=== PATIENT | male | born 1955 | race Caucasian/White ===

== ENCOUNTER 2019-12-05 08:59 | Outpatient (REF) | payer MEDICARE, MEDICAID, SELFPAY ==
[2019-12-05 12:15] LABS: MANUAL DIFF FLAG NO
[2019-12-05 12:22] LABS: Basophils Absolute Auto 0.1 X10*3/uL (0.0-0.2); Basophils Percent Auto 0.6 % (0-2); Eosinophils Absolute Auto 0.2 X10*3/uL (0.0-0.4); Eosinophils Percent Auto 2.7 % (0-4); Hematocrit 44.9 % (42-52); Hemoglobin 14.9 g/dl (14.0-18.0); Imm Gran Abs Auto 0.08 X10*3/uL (0.00-0.03); Imm Gran Pct Auto 0.9 % (0.0-0.4); Lymphocytes Absolute Auto 1.6 X10*3/uL (1.2-4.9); Mean Corpuscular HGB Conc 33.2 g/dl (31.0-36.0); Mean Corpuscular Hemoglobin 34.7 pg (27.0-33.0); Mean Corpuscular Volume 104.7 fL (80-98); Mean Platelet Volume 10.2 fL (9.4-12.4); Monocytes Absolute Auto 0.7 X10*3/uL (0.1-1.2); Monocytes Percent Auto 7.6 % (2-11); Neutrophils Absolute Auto 6.2 X10*3/uL (2.0-8.3); Neutrophils Percent Auto 70.2 % (45-73); Platelet Count 257 X10*3/uL (160-400); Red Blood Count 4.29 X10*6/uL (4.60-5.80); Red Cell Distribution Width 14.8 % (11.0-16.0); White Blood Count 8.8 X10*3/uL (4.8-10.8)
[2019-12-05 12:41] LABS: Alanine Aminotransferase 33 U/L (0-40); Albumin Level 4.8 g/dL (3.5-5.0); Alkaline Phosphatase 61 U/L (39-117); Anion Gap 12 (12-20); Aspartate Amino Transferase 20 U/L (5-37); Bilirubin Total 0.5 mg/dL (0.0-1.0); Blood Urea Nitrogen 11 mg/dL (9-16); C Reactive Protein 2.04 mg/dL (< or = 0.50); Calcium 9.3 mg/dL (8.4-10.2); Carbon Dioxide 34 mmol/L (22-29); Chloride 102 mmol/L (96-108); Estimated Glomerular Filt Rate > 60; Glucose Random 90 mg/dL (60-115); Potassium 4.2 mmol/l (3.3-5.1); Sodium 144 mmol/L (135-145); Total Protein 7.1 g/dL (6.5-8.0)
[2019-12-05 12:42] LABS: Alanine Aminotransferase 33 U/L (0-40); Albumin Level 4.8 g/dL (3.5-5.0); Alkaline Phosphatase 61 U/L (39-117); Anion Gap 11 (12-20); Aspartate Amino Transferase 19 U/L (5-37); Bilirubin Total 0.5 mg/dL (0.0-1.0); Blood Urea Nitrogen 11 mg/dL (9-16); Calcium 9.5 mg/dL (8.4-10.2); Carbon Dioxide 34 mmol/L (22-29); Chloride 102 mmol/L (96-108); Estimated Glomerular Filt Rate > 60; Magnesium 2.1 mg/dL (1.6-2.6); Phosphorus 2.9 mg/dL (2.7-4.5); Potassium 4.2 mmol/l (3.3-5.1); Sodium 143 mmol/L (135-145); Uric Acid 7.3 mg/dL (3.4-7.0)
[2019-12-05 13:25] LABS: Erythrocyte Sedimentation Rate 12 MM/HR (0-15)
[2019-12-05 13:51] LABS: Renal w Reflex Lab Use Only Order verified
== END 2019-12-05 09:00 | disposition home or self-care (01) ==
LOC: CF 08:59
PROVIDERS: Internal Medicine Nephrology; Student in an Organized Health Care Education/Training Program; PCP Internal Medicine; Referring Provider Internal Medicine; Visit Provider Internal Medicine Pulmonary Disease
DX: J44.9 Chronic obstructive pulmonary disease, unspecified (principal); G47.33 Obstructive sleep apnea (adult) (pediatric); R06.00 Dyspnea, unspecified; Z99.89 Dependence on other enabling machines and devices; I10 Essential (primary) hypertension; R60.9 Edema, unspecified; E55.9 Vitamin D deficiency, unspecified; M06.00 Rheumatoid arthritis without rheumatoid factor, unspecified site; Z79.899 Other long term (current) drug therapy
CPT/HCPCS: 36415; 80051; 80053; 82040; 82247; 82310; 82565; 83735; 84075; 84100; 84450; 84460; 84520; 84550; 85025; 85652; 86140; 99214

== ENCOUNTER → 2019-12-12 08:45 | Outpatient (BNVA) | payer MEDICARE, MEDICAID, SELFPAY | PROVIDERS: PCP Internal Medicine; Visit Provider Internal Medicine | DX: I48.19 Other persistent atrial fibrillation (principal); Z51.81 Encounter for therapeutic drug level monitoring; Z79.01 Long term (current) use of anticoagulants | CPT/HCPCS: 85610; 99211 ==

== ENCOUNTER 2019-12-20 07:50 | Outpatient (REF) | payer MEDICARE, MEDICAID, SELFPAY ==
[2019-12-20 10:26] LABS: MANUAL DIFF FLAG NO
[2019-12-20 10:33] LABS: Basophils Percent Auto 0.4 % (0-2); Eosinophils Absolute Auto 0.1 X10*3/uL (0.0-0.4); Eosinophils Percent Auto 1.7 % (0-4); Hematocrit 44.1 % (42-52); Hemoglobin 14.3 g/dl (14.0-18.0); Imm Gran Abs Auto 0.06 X10*3/uL (0.00-0.03); Imm Gran Pct Auto 0.7 % (0.0-0.4); Lymphocytes Absolute Auto 1.1 X10*3/uL (1.2-4.9); Lymphocytes Percent Auto 13.5 % (20-40); Mean Corpuscular HGB Conc 32.4 g/dl (31.0-36.0); Mean Corpuscular Hemoglobin 33.5 pg (27.0-33.0); Mean Corpuscular Volume 103.3 fL (80-98); Mean Platelet Volume 9.8 fL (9.4-12.4); Monocytes Absolute Auto 0.7 X10*3/uL (0.1-1.2); Monocytes Percent Auto 8.3 % (2-11); Neutrophils Absolute Auto 6.3 X10*3/uL (2.0-8.3); Neutrophils Percent Auto 75.4 % (45-73); Platelet Count 259 X10*3/uL (160-400); Red Blood Count 4.27 X10*6/uL (4.60-5.80); Red Cell Distribution Width 14.5 % (11.0-16.0); White Blood Count 8.4 X10*3/uL (4.8-10.8)
[2019-12-20 11:16] LABS: Alanine Aminotransferase 23 U/L (0-40); Albumin Level 4.6 g/dL (3.5-5.0); Alkaline Phosphatase 59 U/L (39-117); Anion Gap 14 (12-20); Aspartate Amino Transferase 15 U/L (5-37); Bilirubin Total 0.5 mg/dL (0.0-1.0); Blood Urea Nitrogen 13 mg/dL (9-16); Calcium 9.4 mg/dL (8.4-10.2); Carbon Dioxide 29 mmol/L (22-29); Chloride 104 mmol/L (96-108); Estimated Glomerular Filt Rate > 60; Glucose Random 104 mg/dL (60-115); Potassium 4.2 mmol/l (3.3-5.1); Sodium 143 mmol/L (135-145); Total Protein 6.9 g/dL (6.5-8.0)
[2019-12-20 11:29] LABS: HBS Num1 0.38 mIU/mL (0-7.99); HBc Num1 0.04 S/CO (0.00-0.79); HBsAGNum1 0.23 S/CO (0.00-0.99); Hepatitis A Antibody IgM 0.19 Index (0-0.79); Hepatitis B Core Antibody Nonreactive (Nonreactive); Hepatitis B Surface Antigen Negative (Negative); ~HepC Num1 0.13 S/CO (0.00-0.79); ~Hepatitis A Antibody IgM Nonreactive (Nonreactive); ~Hepatitis B Surface Antibody NONREACTIVE (Nonreactive); ~Hepatitis C Antibody Nonreactive (Nonreactive)
== END 2019-12-20 07:51 | disposition home or self-care (01) ==
LOC: HO.LAB 07:50
PROVIDERS: PCP Internal Medicine; Referring Provider Internal Medicine; Visit Provider Student in an Organized Health Care Education/Training Program
DX: M06.00 Rheumatoid arthritis without rheumatoid factor, unspecified site (principal); M17.0 Bilateral primary osteoarthritis of knee; Z79.899 Other long term (current) drug therapy
CPT/HCPCS: 36415; 80053; 85025; 86140; 86481; 86704; 86706; 86709; 86803; 87340; 99214

== ENCOUNTER → 2019-12-26 08:27 | Outpatient (BNVA) | payer MEDICARE, MEDICAID, SELFPAY | PROVIDERS: PCP Internal Medicine; Referring Provider Internal Medicine; Visit Provider Internal Medicine | DX: I48.19 Other persistent atrial fibrillation (principal); Z51.81 Encounter for therapeutic drug level monitoring; Z79.01 Long term (current) use of anticoagulants | CPT/HCPCS: 85610; 99211 ==

== ENCOUNTER → 2020-01-09 08:37 | Outpatient (BNVA) | payer MEDICARE, MEDICAID, SELFPAY | PROVIDERS: PCP Internal Medicine; Visit Provider Internal Medicine | DX: I48.19 Other persistent atrial fibrillation (principal); Z51.81 Encounter for therapeutic drug level monitoring; Z79.01 Long term (current) use of anticoagulants | CPT/HCPCS: 85610; 99211 ==

== ENCOUNTER → 2020-01-10 07:55 | Outpatient (BNVA) | payer MEDICARE, MEDICAID, SELFPAY | PROVIDERS: PCP Internal Medicine; Referring Provider Internal Medicine; Visit Provider Student in an Organized Health Care Education/Training Program | DX: I48.19 Other persistent atrial fibrillation (principal); Z51.81 Encounter for therapeutic drug level monitoring; Z79.01 Long term (current) use of anticoagulants | CPT/HCPCS: 99211 ==

== ENCOUNTER → 2020-01-16 08:52 | Outpatient (BNVA) | payer MEDICARE, MEDICAID, SELFPAY | PROVIDERS: PCP Internal Medicine; Referring Provider Internal Medicine; Visit Provider Internal Medicine Pulmonary Disease | DX: J44.9 Chronic obstructive pulmonary disease, unspecified (principal); G47.33 Obstructive sleep apnea (adult) (pediatric); Z79.899 Other long term (current) drug therapy; Z99.89 Dependence on other enabling machines and devices | CPT/HCPCS: 99212 ==

== ENCOUNTER → 2020-01-30 08:18 | Outpatient (BNVA) | payer MEDICARE, MEDICAID, SELFPAY | PROVIDERS: Visit Provider Internal Medicine | DX: I48.19 Other persistent atrial fibrillation (principal); Z51.81 Encounter for therapeutic drug level monitoring; Z79.01 Long term (current) use of anticoagulants | CPT/HCPCS: 85610; 99211 ==

== ENCOUNTER → 2020-02-27 08:04 | Outpatient (BNVA) | payer MEDICARE, MEDICAID, SELFPAY | PROVIDERS: PCP Internal Medicine; Referring Provider Internal Medicine; Visit Provider Internal Medicine | DX: I48.19 Other persistent atrial fibrillation (principal); Z51.81 Encounter for therapeutic drug level monitoring; Z79.01 Long term (current) use of anticoagulants | CPT/HCPCS: 85610; 99211 ==

== ENCOUNTER 2020-03-19 08:09 | Outpatient (REF) | payer MEDICARE, MEDICAID, SELFPAY ==
[2020-03-19 09:33] LABS: MANUAL DIFF FLAG NO
[2020-03-19 09:38] LABS: Basophils Absolute Auto 0.1 X10*3/uL (0.0-0.2); Basophils Percent Auto 0.7 % (0-2); Eosinophils Absolute Auto 0.2 X10*3/uL (0.0-0.4); Eosinophils Percent Auto 2.9 % (0-4); Hematocrit 41.2 % (42-52); Hemoglobin 13.8 g/dl (14.0-18.0); Imm Gran Abs Auto 0.05 X10*3/uL (0.00-0.03); Imm Gran Pct Auto 0.7 % (0.0-0.4); Lymphocytes Absolute Auto 1.7 X10*3/uL (1.2-4.9); Lymphocytes Percent Auto 22.5 % (20-40); Mean Corpuscular HGB Conc 33.5 g/dl (31.0-36.0); Mean Corpuscular Hemoglobin 34.2 pg (27.0-33.0); Mean Corpuscular Volume 102.2 fL (80-98); Mean Platelet Volume 9.8 fL (9.4-12.4); Monocytes Absolute Auto 0.5 X10*3/uL (0.1-1.2); Monocytes Percent Auto 6.4 % (2-11); Neutrophils Absolute Auto 5.1 X10*3/uL (2.0-8.3); Neutrophils Percent Auto 66.8 % (45-73); Platelet Count 219 X10*3/uL (160-400); Red Blood Count 4.03 X10*6/uL (4.60-5.80); Red Cell Distribution Width 14.5 % (11.0-16.0); White Blood Count 7.6 X10*3/uL (4.8-10.8)
[2020-03-19 09:58] LABS: C Reactive Protein 0.64 mg/dL (< or = 0.50)
[2020-03-19 10:36] LABS: Erythrocyte Sedimentation Rate 5 MM/HR (0-15)
== END 2020-03-19 08:10 | disposition home or self-care (01) ==
LOC: HO.LAB 08:09
PROVIDERS: Absent Provider Student in an Organized Health Care Education/Training Program; PCP Internal Medicine; Visit Provider Internal Medicine
DX: M06.00 Rheumatoid arthritis without rheumatoid factor, unspecified site (principal); Z79.899 Other long term (current) drug therapy
CPT/HCPCS: 36415; 85025; 85610; 85652; 86140; 99211

== ENCOUNTER → 2020-03-21 09:15 | Outpatient (BNVA) | payer MEDICARE, MEDICAID, SELFPAY | PROVIDERS: PCP Internal Medicine; Visit Provider Student in an Organized Health Care Education/Training Program | DX: M06.00 Rheumatoid arthritis without rheumatoid factor, unspecified site (principal); M17.0 Bilateral primary osteoarthritis of knee; Z87.891 Personal history of nicotine dependence; Z79.899 Other long term (current) drug therapy | CPT/HCPCS: 99212 ==

== ENCOUNTER → 2020-04-09 08:02 | Outpatient (BNVA) | payer MEDICARE, MEDICAID, SELFPAY | PROVIDERS: PCP Internal Medicine; Visit Provider Internal Medicine | DX: I48.19 Other persistent atrial fibrillation (principal); Z51.81 Encounter for therapeutic drug level monitoring; Z79.01 Long term (current) use of anticoagulants | CPT/HCPCS: 85610; 99211 ==

== ENCOUNTER 2020-05-07 07:58 | Outpatient (REF) | payer MEDICARE, MEDICAID, SELFPAY ==
[2020-05-07 08:51] LABS: MANUAL DIFF FLAG NO
[2020-05-07 08:55] LABS: Basophils Percent Auto 0.3 % (0-2); Eosinophils Absolute Auto 0.2 X10*3/uL (0.0-0.4); Eosinophils Percent Auto 2.2 % (0-4); Hematocrit 41.4 % (42-52); Hemoglobin 13.8 g/dl (14.0-18.0); Imm Gran Abs Auto 0.05 X10*3/uL (0.00-0.03); Imm Gran Pct Auto 0.6 % (0.0-0.4); Lymphocytes Absolute Auto 1.5 X10*3/uL (1.2-4.9); Lymphocytes Percent Auto 16.7 % (20-40); Mean Corpuscular HGB Conc 33.3 g/dl (31.0-36.0); Mean Corpuscular Hemoglobin 34.5 pg (27.0-33.0); Mean Corpuscular Volume 103.5 fL (80-98); Mean Platelet Volume 9.5 fL (9.4-12.4); Monocytes Absolute Auto 0.6 X10*3/uL (0.1-1.2); Monocytes Percent Auto 6.7 % (2-11); Neutrophils Absolute Auto 6.5 X10*3/uL (2.0-8.3); Neutrophils Percent Auto 73.5 % (45-73); Platelet Count 251 X10*3/uL (160-400); Red Cell Distribution Width 14.3 % (11.0-16.0); White Blood Count 8.8 X10*3/uL (4.8-10.8)
[2020-05-07 09:07] LABS: Estimated Average Glucose 117 mg/dL; Hemoglobin A1c % 5.7 %
[2020-05-07 09:30] LABS: Alanine Aminotransferase 21 U/L (0-40); Albumin Level 4.4 g/dL (3.5-5.0); Alkaline Phosphatase 51 U/L (39-117); Anion Gap 12 (12-20); Aspartate Amino Transferase 17 U/L (5-37); Bilirubin Total 0.3 mg/dL (0.0-1.0); Blood Urea Nitrogen 20 mg/dL (9-16); Calcium 9.4 mg/dL (8.4-10.2); Carbon Dioxide 30 mmol/L (22-29); Chloride 105 mmol/L (96-108); Cholesterol 182 mg/dL; Estimated Glomerular Filt Rate > 60; Glucose Random 119 mg/dL (60-115); HDL Cholesterol 27 mg/dL; LDL Cholesterol Calculated 98 mg/dl; Potassium 4.7 mmol/L (3.3-5.1); Sodium 142 mmol/L (135-145); Total Protein 6.6 g/dL (6.5-8.0); Triglycerides 287 mg/dL
[2020-05-07 09:51] LABS: Free T4 (Free Thyroxine) 0.96 ng/dL (0.71-1.85); Thyroid Stimulating Hormone 1.13 uIU/mL (0.32-4.0)
[2020-05-07 09:54] LABS: Erythrocyte Sedimentation Rate 7 MM/HR (0-15)
[2020-05-07 10:22] LABS: Folate > 20.0 ng/mL (> or = 4.0); Vitamin B12 201 pg/mL (200-900)
== END 2020-05-07 07:59 | disposition home or self-care (01) ==
LOC: HO.LAB 07:58
PROVIDERS: Absent Provider Student in an Organized Health Care Education/Training Program; PCP Internal Medicine; Referring Provider Internal Medicine; Visit Provider Internal Medicine
DX: I10 Essential (primary) hypertension (principal); E78.00 Pure hypercholesterolemia, unspecified; M06.00 Rheumatoid arthritis without rheumatoid factor, unspecified site; R73.02 Impaired glucose tolerance (oral); I48.19 Other persistent atrial fibrillation; Z51.81 Encounter for therapeutic drug level monitoring; Z79.01 Long term (current) use of anticoagulants
CPT/HCPCS: 36415; 80053; 80061; 82607; 82746; 83036; 84439; 84443; 85025; 85610; 85652; 99211

== ENCOUNTER → 2020-05-16 08:48 | Outpatient (BNVA) | payer MEDICARE, MEDICAID, SELFPAY | PROVIDERS: PCP Internal Medicine; Visit Provider Internal Medicine Pulmonary Disease | DX: J44.9 Chronic obstructive pulmonary disease, unspecified (principal); G47.33 Obstructive sleep apnea (adult) (pediatric); Z99.89 Dependence on other enabling machines and devices; Z87.891 Personal history of nicotine dependence | CPT/HCPCS: 99212 ==

== ENCOUNTER 2020-05-17 07:23 | Outpatient (REF) | payer MEDICARE, MEDICAID, SELFPAY ==
[2020-05-17 09:10] LABS: MANUAL DIFF FLAG NO
[2020-05-17 09:14] LABS: Basophils Percent Auto 0.5 % (0-2); Eosinophils Absolute Auto 0.1 X10*3/uL (0.0-0.4); Eosinophils Percent Auto 2.1 % (0-4); Hemoglobin 14.3 g/dl (14.0-18.0); Imm Gran Abs Auto 0.03 X10*3/uL (0.00-0.03); Imm Gran Pct Auto 0.5 % (0.0-0.4); Lymphocytes Absolute Auto 1.3 X10*3/uL (1.2-4.9); Lymphocytes Percent Auto 19.5 % (20-40); Mean Corpuscular HGB Conc 33.3 g/dl (31.0-36.0); Mean Corpuscular Hemoglobin 34.6 pg (27.0-33.0); Mean Corpuscular Volume 104.1 fL (80-98); Mean Platelet Volume 9.7 fL (9.4-12.4); Monocytes Absolute Auto 0.6 X10*3/uL (0.1-1.2); Monocytes Percent Auto 8.5 % (2-11); Neutrophils Absolute Auto 4.5 X10*3/uL (2.0-8.3); Neutrophils Percent Auto 68.9 % (45-73); Platelet Count 245 X10*3/uL (160-400); Red Blood Count 4.13 X10*6/uL (4.60-5.80); Red Cell Distribution Width 14.6 % (11.0-16.0); White Blood Count 6.6 X10*3/uL (4.8-10.8)
[2020-05-17 10:09] LABS: Erythrocyte Sedimentation Rate 6 MM/HR (0-15)
[2020-05-17 11:40] LABS: Alanine Aminotransferase 21 U/L (0-40); Albumin Level 4.7 g/dL (3.5-5.0); Alkaline Phosphatase 51 U/L (39-117); Anion Gap 13 (12-20); Aspartate Amino Transferase 17 U/L (5-37); Bilirubin Total 0.8 mg/dL (0.0-1.0); Blood Urea Nitrogen 16 mg/dL (9-16); C Reactive Protein 0.87 mg/dL (< or = 0.50); Calcium 9.3 mg/dL (8.4-10.2); Carbon Dioxide 28 mmol/L (22-29); Chloride 105 mmol/L (96-108); Estimated Glomerular Filt Rate > 60; Glucose Random 117 mg/dL (60-115); Potassium 4.3 mmol/L (3.3-5.1); Sodium 142 mmol/L (135-145); Total Protein 6.9 g/dL (6.5-8.0)
[2020-05-21 15:37] LABS: Vitamin D 25-OH, D2 <4 ng/mL; Vitamin D 25-OH, D3 33 ng/mL; Vitamin D 25-OH, Total 33 ng/mL (30-100)
== END 2020-05-17 07:24 | disposition home or self-care (01) ==
LOC: HO.LAB 07:23
PROVIDERS: PCP Internal Medicine; Visit Provider Student in an Organized Health Care Education/Training Program
DX: M06.00 Rheumatoid arthritis without rheumatoid factor, unspecified site (principal); G62.9 Polyneuropathy, unspecified; Z79.899 Other long term (current) drug therapy
CPT/HCPCS: 36415; 80053; 82306; 85025; 85652; 86140; 99212

== ENCOUNTER → 2020-06-04 07:57 | Outpatient (BNVA) | payer MEDICARE, MEDICAID, SELFPAY | PROVIDERS: PCP Internal Medicine; Visit Provider Internal Medicine | DX: M17.0 Bilateral primary osteoarthritis of knee (principal); M72.2 Plantar fascial fibromatosis; I48.91 Unspecified atrial fibrillation; I73.9 Peripheral vascular disease, unspecified; E78.00 Pure hypercholesterolemia, unspecified; I10 Essential (primary) hypertension; E55.9 Vitamin D deficiency, unspecified; F17.200 Nicotine dependence, unspecified, uncomplicated; Z88.0 Allergy status to penicillin; Z79.01 Long term (current) use of anticoagulants; Z51.81 Encounter for therapeutic drug level monitoring | CPT/HCPCS: 20610; 85610; 99211; 99212; J1040 ==

== ENCOUNTER → 2020-06-11 07:59 | Outpatient (BNVA) | payer MEDICARE, MEDICAID, SELFPAY | PROVIDERS: PCP Internal Medicine; Visit Provider Internal Medicine | DX: I48.19 Other persistent atrial fibrillation (principal); Z79.01 Long term (current) use of anticoagulants; Z51.81 Encounter for therapeutic drug level monitoring | CPT/HCPCS: 85610; 99211 ==

== ENCOUNTER → 2020-06-25 08:00 | Outpatient (BNVA) | payer MEDICARE, MEDICAID, SELFPAY | PROVIDERS: PCP Internal Medicine; Visit Provider Internal Medicine | DX: I48.19 Other persistent atrial fibrillation (principal); Z51.81 Encounter for therapeutic drug level monitoring; Z79.01 Long term (current) use of anticoagulants | CPT/HCPCS: 85610; 99211 ==

== ENCOUNTER → 2020-07-09 08:01 | Outpatient (BNVA) | payer MEDICARE, MEDICAID, SELFPAY | PROVIDERS: PCP Internal Medicine; Visit Provider Internal Medicine | DX: I48.19 Other persistent atrial fibrillation (principal); Z51.81 Encounter for therapeutic drug level monitoring; Z79.01 Long term (current) use of anticoagulants | CPT/HCPCS: 85610; 99211 ==

== ENCOUNTER → 2020-08-06 07:59 | Outpatient (BNVA) | payer MEDICARE, MEDICAID, SELFPAY | PROVIDERS: PCP Internal Medicine; Visit Provider Internal Medicine | DX: I48.19 Other persistent atrial fibrillation (principal); Z51.81 Encounter for therapeutic drug level monitoring; Z79.01 Long term (current) use of anticoagulants | CPT/HCPCS: 85610; 99211 ==

== ENCOUNTER 2020-08-16 12:36 | Outpatient (REF) | payer MEDICARE, MEDICAID, SELFPAY ==
[2020-08-16 14:48] LABS: MANUAL DIFF FLAG NO
[2020-08-16 14:57] LABS: Basophils Percent Auto 0.3 % (0-2); Eosinophils Absolute Auto 0.1 X10*3/uL (0.0-0.4); Eosinophils Percent Auto 1.5 % (0-4); Hematocrit 43.3 % (42-52); Hemoglobin 14.7 g/dl (14.0-18.0); Imm Gran Abs Auto 0.04 X10*3/uL (0.00-0.03); Imm Gran Pct Auto 0.4 % (0.0-0.4); Lymphocytes Absolute Auto 1.7 X10*3/uL (1.2-4.9); Lymphocytes Percent Auto 18.3 % (20-40); Mean Corpuscular HGB Conc 33.9 g/dl (31.0-36.0); Mean Corpuscular Hemoglobin 35.2 pg (27.0-33.0); Mean Corpuscular Volume 103.6 fL (80-98); Mean Platelet Volume 9.5 fL (9.4-12.4); Monocytes Absolute Auto 0.7 X10*3/uL (0.1-1.2); Monocytes Percent Auto 7.7 % (2-11); Neutrophils Absolute Auto 6.7 X10*3/uL (2.0-8.3); Neutrophils Percent Auto 71.8 % (45-73); Platelet Count 275 X10*3/uL (160-400); Red Blood Count 4.18 X10*6/uL (4.60-5.80); Red Cell Distribution Width 15.4 % (11.0-16.0); White Blood Count 9.3 X10*3/uL (4.8-10.8)
[2020-08-16 15:25] LABS: Alanine Aminotransferase 25 U/L (0-40); Albumin Level 4.8 g/dL (3.5-5.0); Alkaline Phosphatase 52 U/L (39-117); Anion Gap 15 (12-20); Aspartate Amino Transferase 25 U/L (5-37); Bilirubin Total 0.8 mg/dL (0.0-1.0); Blood Urea Nitrogen 16 mg/dL (9-16); C Reactive Protein 0.78 mg/dL (< or = 0.50); Calcium 9.5 mg/dL (8.4-10.2); Carbon Dioxide 28 mmol/L (22-29); Chloride 103 mmol/L (96-108); Estimated Glomerular Filt Rate > 60; Glucose Random 103 mg/dL (60-115); Potassium 4.2 mmol/L (3.3-5.1); Sodium 142 mmol/L (135-145); Total Protein 7.1 g/dL (6.5-8.0)
[2020-08-16 15:36] LABS: Erythrocyte Sedimentation Rate 5 MM/HR (0-15)
== END 2020-08-16 12:37 | disposition home or self-care (01) ==
LOC: HO.LAB 12:36
PROVIDERS: PCP Internal Medicine; Visit Provider Student in an Organized Health Care Education/Training Program
DX: M06.00 Rheumatoid arthritis without rheumatoid factor, unspecified site (principal)
CPT/HCPCS: 36415; 80053; 85025; 85652; 86140; 99212

== ENCOUNTER → 2020-08-20 08:10 | Outpatient (BNVA) | payer MEDICARE, MEDICAID, SELFPAY | PROVIDERS: PCP Internal Medicine; Visit Provider Internal Medicine | DX: I48.19 Other persistent atrial fibrillation (principal); Z51.81 Encounter for therapeutic drug level monitoring; Z79.01 Long term (current) use of anticoagulants | CPT/HCPCS: 85610; 99211 ==

== ENCOUNTER → 2020-09-09 08:29 | Outpatient (REF) | payer MEDICARE, MEDICAID, SELFPAY ==
--- NOTE | 2020-09-09 08:32 | CA_ITS ---
Transthoracic Echocardiogram Patient (Last, First, Middle): Konrad Ferrera S Gender: Male Date of : 1955 Age: 65 Procedure Date: 09/09/2020 Procedure Type: Transthoracic Echocardiogram Location: OP Height: 190.5 cm Weight: 124.29 kg BSA: 2.51 m2 Heart Rate: bpm BP: 120 / 58 mmHg Dinker: Referring MD: Perez Navas MD Symptoms: I48.1 PERSITENT AFIB, R60.0 EDEMA Study Quality: Fair ECG Rhythm: Atrial Fibrillation Conclusions: - The left ventricular systolic function is normal. The visually estimated ejection fraction is between 65-70%. - There is mild calcification of the aortic valve. - There is mild mitral annular calcification. Findings Procedure Information Contrast agent, definity, is being given per protocol without apparent complications. Left Ventricle Normal left ventricular cavity size. There is mildly increased left ventricular wall thickness. The left ventricular systolic function is normal. The visually estimated ejection fraction is between 65-70%. There is no evidence of regional wall motion abnormalities. Diastolic function is indeterminate on the basis of available data. Right Ventricle Normal right ventricular cavity size. There is low normal right ventricular systolic function. Atria Both atria are normal in size. Aortic Valve There is a normal trileaflet aortic valve. There is mild calcification of the aortic valve. There is no aortic valve stenosis. There is no aortic valve regurgitation. Mitral Valve There is mild mitral annular calcification. There is trace mitral valve regurgitation. There is no mitral valve stenosis. Pulmonic Valve The pulmonic valve was not well visualized. Tricuspid Valve Normal tricuspid valve structure. There is trace tricuspid valve regurgitation. The pulmonary artery systolic pressure is normal. Great Vessels The aortic annulus, sinuses of valsalva, asc aorta, and aortic arch are normal in size. Venous The inferior vena cava is mildly dilated and collapses greater than 50% with inspiration. Pericardium/Pleural There is no evidence of pericardial effusion. Prior Study Comparison No significant change compared to prior study dated: 03/29/2019. Measurements 2D Linear Measurements RVIDd: 3.51 RVIDd Index: 1.40 IVSd: 0.98 0.6-0.9/0.6-1.0 cm LVIDd: 5.31 3.9-5.3/4.2-5.9 cm LVIDd Index: 2.12 2.4-3.2/2.2-3.1 cm/m2 LVIDs: 3.43 2.0-3.6 cm LVPWd: 1.13 0.7-1.1 cm Ao Root: 3.60 2.1-3.5 cm LA Diam: 4.50 2.7-3.8/3.0-4.0 cm LAIDs Index: 1.79 1.5-2.3 cm/m2 LV Mass: 268.29 67-162/88-224 g LV Mass Index: 106.89 43-95/49-115 g/m2 LVOT Diam: 2.20 3.0+(-)1.3 cm 2D Systolic Function EF 4C: 53.40 >55% EF 2C: 51.10 >55% Aortic Valve AoV Pk Jorge: 1.36 AoV Mn Jorge: 1.04 AoV VTI: 0.31 AoV Pk Grad: 7.00 Aov Mn Grad: 5.00 JARAD Cont.VTI: 2.80 LVOT LVOT Pk Jorge: 1.02 LVOT Mn Jorge: 0.70 LVOT VTI: 0.23 LVOT Pk Grad: 4.00 LVOT Mn Grad: 2.00 LVOT Diam: 2.20 LVOT Area: 3.80 Tricuspid Valve RA Press: 8.00 Great Vessels Aorta Ao Root-2D: 3.60 2.0-3.7 cm Ao Asc: 3.30 2.1-3.4 cm Ao Arch: 3.10 Updated in Other Vendor System with Status of Final Perez Navas MD electronically signed on 09/10/2020 10:19:16 AM with status of Final
== END ==
LOC: HO.CARD 08:29
PROVIDERS: Visit Provider Internal Medicine
DX: I48.19 Other persistent atrial fibrillation (principal); R60.0 Localized edema
CPT/HCPCS: 93306; Q9957

== ENCOUNTER → 2020-09-17 09:05 | Outpatient (BNVA) | payer MEDICARE, MEDICAID, SELFPAY | PROVIDERS: PCP Internal Medicine; Visit Provider Internal Medicine | DX: I48.91 Unspecified atrial fibrillation (principal); J44.9 Chronic obstructive pulmonary disease, unspecified; I50.9 Heart failure, unspecified; G47.33 Obstructive sleep apnea (adult) (pediatric); Z51.81 Encounter for therapeutic drug level monitoring; Z79.01 Long term (current) use of anticoagulants; Z87.891 Personal history of nicotine dependence | CPT/HCPCS: 85610; 99211; 99212 ==

== ENCOUNTER → 2020-09-24 12:39 | Outpatient (BNVA) | payer MEDICARE, MEDICAID, SELFPAY | PROVIDERS: PCP Internal Medicine; Referring Provider Internal Medicine; Visit Provider Internal Medicine | DX: I48.19 Other persistent atrial fibrillation (principal); I27.81 Cor pulmonale (chronic); G47.33 Obstructive sleep apnea (adult) (pediatric); Z79.01 Long term (current) use of anticoagulants; Z79.899 Other long term (current) drug therapy | CPT/HCPCS: 93005; 99212 ==

== ENCOUNTER → 2020-10-09 07:59 | Outpatient (BNVA) | payer MEDICARE, MEDICAID, SELFPAY | PROVIDERS: PCP Internal Medicine; Visit Provider Internal Medicine | DX: I48.11 Longstanding persistent atrial fibrillation (principal); Z51.81 Encounter for therapeutic drug level monitoring; Z79.01 Long term (current) use of anticoagulants | CPT/HCPCS: G0248 ==

== ENCOUNTER → 2020-10-16 11:51 | Outpatient (BNVA) | payer MEDICARE, MEDICAID, SELFPAY | PROVIDERS: PCP Internal Medicine; Visit Provider Internal Medicine ==

== ENCOUNTER 2020-10-16 16:00 | Outpatient (RCR) | payer MEDICARE, MEDICAID, SELFPAY ==
--- NOTE | 2020-09-20 13:35 | MHC.PT.EP ---
[facility] [place] Office [place] Office [place] Office [address] Mitesh Johns [address] [phone] F: [phone] F: [phone] F: [phone] F: [phone] Physical Therapy Plan of Care Date of Evaluation: Date of Surgery: N/A Diagnosis: low back pain, bilateral lower extremity pain Assessment: pt's signs and symptoms consistent w/ lumbar radiculopathy. His B calf burning w/ gait is consistent w/ PAD as it is worse w/ increased energy expenditure, for example going up hill, and improves w/ rest. He is significantly limited by his COPD to participate in exercise at this time. pt presents to physical therapy with pain, decreased range of motion, decreased strength, impaired functional mobility, impaired postural awareness, and gait deviations. pt is a good candidate for skilled PT due to age, potential remediation of impairments, typical disease/condition progression and prognosis, comorbidities, and motivation. pt would benefit from tailored strengthening and stretching exercise program, functional training, gait training, postural re-training, neuromuscular re-education, modalities as needed for pain, equipment safety demonstration. Frequency and Duration: The patient will be seen 2x/wk for 4 wks Short Term Goals: pt will be I w/ HEP to promote self-management of radicular symptoms. pt will improve lumbar flexion by 25% to promote ease in donning compression stockings. Jail Goals: pt will report a statistically significant improvement in self-reported outcome measure, Edith, to promote return to PLOF. pt will report <2/10 L low back and radicular pain w/ >2500' gait on even ground to promote pain-free return to community ambulation w/ LRAD. Treatment Plan: Modalities to reduce pain, spasms and effusion. Manual therapy to restore motion and function. Therapeutic exercise to improve strength and flexibility. Neuromuscular re-education for posture and balance. Therapeutic activities to return to functional activities of daily living. Electronically signed by: Anastasia Laguna PT, DPT Please sign and return to therapist. Thank you for your referral.
--- NOTE | 2020-10-16 16:47 | MHC.PT.EP ---
[facility] [place] Office [place] Office [place] Office [address] Mitesh Johns [address] [phone] F: [phone] F: [phone] F: [phone] F: [phone] Physical Therapy Plan of Care Date of Evaluation: Date of Surgery: N/A Diagnosis: low back pain, bilateral lower extremity pain Assessment: pt's signs and symptoms consistent w/ lumbar radiculopathy. His B calf burning w/ gait is consistent w/ PAD as it is worse w/ increased energy expenditure, for example going up hill, and improves w/ rest. He is significantly limited by his COPD to participate in exercise at this time. pt presents to physical therapy with pain, decreased range of motion, decreased strength, impaired functional mobility, impaired postural awareness, and gait deviations. pt is a good candidate for skilled PT due to age, potential remediation of impairments, typical disease/condition progression and prognosis, comorbidities, and motivation. pt would benefit from tailored strengthening and stretching exercise program, functional training, gait training, postural re-training, neuromuscular re-education, modalities as needed for pain, equipment safety demonstration. Frequency and Duration: The patient will be seen 2x/wk for 4 wks Short Term Goals: pt will be I w/ HEP to promote self-management of radicular symptoms. pt will improve lumbar flexion by 25% to promote ease in donning compression stockings. [facility] Goals: pt will report a statistically significant improvement in self-reported outcome measure, Edith, to promote return to PLOF. pt will report <2/10 L low back and radicular pain w/ >2500' gait on even ground to promote pain-free return to community ambulation w/ LRAD. Treatment Plan: Modalities to reduce pain, spasms and effusion. Manual therapy to restore motion and function. Therapeutic exercise to improve strength and flexibility. Neuromuscular re-education for posture and balance. Therapeutic activities to return to functional activities of daily living. Electronically signed by: Anastasia Laguna PT, DPT Please sign and return to therapist. Thank you for your referral.
== END 2020-10-16 16:47 | disposition home or self-care (01) ==
LOC: HO.PT 16:00
PROVIDERS: PCP Internal Medicine; Visit Provider Student in an Organized Health Care Education/Training Program
DX: M06.00 Rheumatoid arthritis without rheumatoid factor, unspecified site (principal)
CPT/HCPCS: 97110; 97150; 97162; 97530

== ENCOUNTER → 2020-10-23 10:33 | Outpatient (BNVA) | payer MEDICARE, MEDICAID, SELFPAY | PROVIDERS: PCP Internal Medicine; Visit Provider Internal Medicine ==

== ENCOUNTER → 2020-10-30 11:56 | Outpatient (BNVA) | payer MEDICARE, MEDICAID, SELFPAY | PROVIDERS: PCP Internal Medicine; Visit Provider Internal Medicine ==

== ENCOUNTER → 2020-11-06 12:02 | Outpatient (BNVA) | payer MEDICARE, MEDICAID, SELFPAY | PROVIDERS: PCP Internal Medicine; Visit Provider Internal Medicine ==

== ENCOUNTER → 2020-11-13 11:46 | Outpatient (BNVA) | payer MEDICARE, MEDICAID, SELFPAY | PROVIDERS: PCP Internal Medicine; Visit Provider Internal Medicine | DX: I48.11 Longstanding persistent atrial fibrillation (principal) | CPT/HCPCS: Q3014 ==

== ENCOUNTER 2020-11-20 10:09 | Outpatient (REF) | payer MEDICARE, MEDICAID, SELFPAY ==
[2020-11-20 11:35] LABS: MANUAL DIFF FLAG NO
[2020-11-20 11:43] LABS: Basophils Percent Auto 0.2 % (0-2); Eosinophils Absolute Auto 0.2 X10*3/uL (0.0-0.4); Eosinophils Percent Auto 1.8 % (0-4); Hematocrit 41.3 % (42-52); Imm Gran Abs Auto 0.04 X10*3/uL (0.00-0.03); Imm Gran Pct Auto 0.5 % (0.0-0.4); Lymphocytes Absolute Auto 1.6 X10*3/uL (1.2-4.9); Lymphocytes Percent Auto 19.5 % (20-40); Mean Corpuscular HGB Conc 33.9 g/dl (31.0-36.0); Mean Corpuscular Hemoglobin 35.5 pg (27.0-33.0); Mean Corpuscular Volume 104.8 fL (80-98); Mean Platelet Volume 9.5 fL (9.4-12.4); Monocytes Absolute Auto 0.7 X10*3/uL (0.1-1.2); Neutrophils Absolute Auto 5.7 X10*3/uL (2.0-8.3); Platelet Count 262 X10*3/uL (160-400); Red Blood Count 3.94 X10*6/uL (4.60-5.80); Red Cell Distribution Width 14.4 % (11.0-16.0); White Blood Count 8.2 X10*3/uL (4.8-10.8)
[2020-11-20 12:12] LABS: Alanine Aminotransferase 23 U/L (0-40); Albumin Level 4.7 g/dL (3.5-5.0); Alkaline Phosphatase 54 U/L (39-117); Anion Gap 16 (12-20); Aspartate Amino Transferase 22 U/L (5-37); Bilirubin Total 0.7 mg/dL (0.0-1.0); Blood Urea Nitrogen 16 mg/dL (9-16); C Reactive Protein 1.64 mg/dL (< or = 0.50); Calcium 9.8 mg/dL (8.4-10.2); Carbon Dioxide 27 mmol/L (22-29); Chloride 102 mmol/L (96-108); Estimated Glomerular Filt Rate > 60; Glucose Random 92 mg/dL (60-115); Potassium 3.9 mmol/L (3.3-5.1); Sodium 141 mmol/L (135-145); Total Protein 6.7 g/dL (6.5-8.0)
[2020-11-20 12:32] LABS: Erythrocyte Sedimentation Rate 7 MM/HR (0-15)
[2020-11-20 13:01] LABS: Folate > 20.0 ng/mL (> or = 4.0); Vitamin B12 337 pg/mL (200-900)
== END 2020-11-20 10:10 | disposition home or self-care (01) ==
LOC: HO.LAB 10:09
PROVIDERS: Absent Provider Internal Medicine; PCP Internal Medicine; Visit Provider Nurse Practitioner Family
DX: M06.00 Rheumatoid arthritis without rheumatoid factor, unspecified site (principal); I48.0 Paroxysmal atrial fibrillation; G63 Polyneuropathy in diseases classified elsewhere; Z79.899 Other long term (current) drug therapy; Z87.891 Personal history of nicotine dependence
CPT/HCPCS: 36415; 80053; 82607; 82746; 85025; 85652; 86140; 99212

== ENCOUNTER → 2020-11-28 11:14 | Outpatient (BNVA) | payer MEDICARE, MEDICAID, SELFPAY | PROVIDERS: PCP Internal Medicine; Visit Provider Internal Medicine ==

== ENCOUNTER → 2020-12-04 11:45 | Outpatient (BNVA) | payer MEDICARE, MEDICAID, SELFPAY | PROVIDERS: PCP Internal Medicine; Visit Provider Internal Medicine ==

== ENCOUNTER → 2020-12-18 13:14 | Outpatient (BNVA) | payer MEDICARE, MEDICAID, SELFPAY | PROVIDERS: PCP Internal Medicine; Visit Provider Internal Medicine ==

== ENCOUNTER → 2021-01-01 11:31 | Outpatient (BNVA) | payer MEDICARE, MEDICAID, SELFPAY | PROVIDERS: PCP Internal Medicine; Visit Provider Internal Medicine | DX: I48.11 Longstanding persistent atrial fibrillation (principal); Z51.81 Encounter for therapeutic drug level monitoring; Z79.01 Long term (current) use of anticoagulants | CPT/HCPCS: Q3014 ==

== ENCOUNTER → 2021-01-15 14:37 | Outpatient (BNVA) | payer MEDICARE, MEDICAID, SELFPAY | PROVIDERS: PCP Internal Medicine; Visit Provider Internal Medicine | DX: I48.11 Longstanding persistent atrial fibrillation (principal) | CPT/HCPCS: Q3014 ==

== ENCOUNTER → 2021-01-29 09:58 | Outpatient (BNVA) | payer MEDICARE, MEDICAID, SELFPAY | PROVIDERS: PCP Internal Medicine; Visit Provider Internal Medicine | DX: I48.11 Longstanding persistent atrial fibrillation (principal); Z51.81 Encounter for therapeutic drug level monitoring; Z79.01 Long term (current) use of anticoagulants | CPT/HCPCS: Q3014 ==

== ENCOUNTER 2021-02-02 15:23 | Inpatient (IN) | payer MEDICARE, MEDICAID, SELFPAY ==
--- NOTE | ~2021-02-02 | XR_ITS ---
EXAMINATION: XR CHEST CLINICAL INFORMATION: Covid infection COMPARISON: Previous chest x-rays most recent 02/02/2021 TECHNIQUE: Frontal view of the chest was obtained. FINDINGS: The cardiac and mediastinal contours are stable. There is bilateral multilobar groundglass attenuation and airspace disease suggestive of worsening pneumonia/pneumonitis. There is no pleural effusion or pneumothorax. There are degenerative changes of the spine. There are old left-sided rib fractures. XR/XR chest 1V IMPRESSION: Worsening bilateral pneumonia/pneumonitis.
--- NOTE | ~2021-02-02 | XR_ITS ---
EXAMINATION: XR CHEST CLINICAL INFORMATION: Cough COMPARISON: 02/20/2019 TECHNIQUE: Frontal view of the chest was obtained. FINDINGS: There are increased patchy opacities in the inferior aspect of the right upper lobe and in the left lung base. There is mild left-sided pleural thickening, which may represent a small effusion. No acute osseous abnormality. Multiple old bilateral rib fractures. XR/XR chest 1V IMPRESSION: Increased patchy opacities in the right upper lobe and left lung base, concerning for multifocal pneumonia.
[2021-02-02 15:34] VITALS: BP 148/68; PULSE 65; RESP 30; TEMP 38.5; O2SAT 75; BMI 32.5
[2021-02-02 15:57] VITALS: O2SAT 97
--- NOTE | 2021-02-02 16:15 | PC.NURSE ---
patient a&ox3, ivs inserted, labs drawn, potline monitor applied, rt and provider at bedside, will continue to monitor.
[2021-02-02 16:16] LABS: ABG Refer to POC result
[2021-02-02 16:16] LABS: ABG HCO3 22 mmol/L (22-26); ABG pCO2 26 mmHg (32-45); ABG pCO2 TC 27 mmHg (32-45); ABG pH 7.54 (7.35-7.45); ABG pH TC 7.53 (7.35-7.45); ABG pO2 114 mmHg (83-108); ABG pO2 TC 120 (83-108)
[2021-02-02] MEDS: Acetaminophen 325 MG TABLET 650 MG PO (16:17)
--- NOTE | 2021-02-02 16:19 | ECG_ITS ---
Test Reason : SOB Blood Pressure : / mmHG Vent. Rate : 061 BPM Atrial Rate : 000 BPM P-R Int : 000 ms QRS Dur : 120 ms QT Int : 454 ms P-R-T Axes : 000 -54 -08 degrees QTc Int : 457 ms Atrial fibrillation Left axis deviation Right bundle branch block Inferior infarct , age undetermined Abnormal ECG When compared with ECG of 16-FEB-2017 14:24, Atrial fibrillation has replaced Sinus rhythm Right bundle branch block has replaced RSR' pattern in V1 Referred By: Oleksandr Jett Electronically Signed By:Jimmy Hutchinson
[2021-02-02] MEDS: 0.9 % Sodium Chloride 1,000 ML 999 ML IV (16:22)
--- NOTE | 2021-02-02 16:23 | ED.SOB ---
HPI - SOB/Dyspnea General Chief Complaint: Dyspnea Stated Complaint: Difficulty breathing Time Seen by Provider: 02/02/21 15:43 Source: patient and family (Significant other, Bonnie) Mode of arrival: ambulatory Limitations: no limitations History of Present Illness HPI Narrative: 65-year-old male who presents emergency department for evaluation shortness of breath, fever, chills, productive cough. Patient has a history of COPD and cor pulmonale. He states that he has been feeling short of breath for 1 week. He states that over the past 2-3 days he has had a cough which is productive of thick, brown sputum. Patient has had increased dyspnea on exertion. He states that he had a subjective fever and chills at home. States that today he came more short of breath therefore came to emergency department for evaluation. Patient states that he has received his Pfizer COVID 19 2 shot vaccination he also received his booster shot. On presentation to the emergency department the patient was acutely short of breath. His O2 saturation on room air was 75%. His temperature was 101.3?. Respiratory rate was 30, pulse was 65 and blood pressure was 148/68. Patient was placed on a 100% non-rebreather mask and his O2 saturation came up to 95% and his dyspnea improved. Related Data Home Medications Medication Instructions Recorded Confirmed cholecalciferol (vitamin D3) 50 50 mcg PO DAILY 06/04/20 11/13/20 mcg (2,000 unit) capsule Previous Rx's Medication Instructions Recorded omeprazole 20 mg capsule,delayed 20 mg PO DAILY #90 cap 04/25/20 release pravastatin 20 mg tablet 20 mg PO DAILY #90 tab 04/25/20 albuterol sulfate 90 mcg/actuation 2 puff INHALATION Q4-6H PRN 90 05/16/20 aerosol inhaler Days #1 ea compr.stocking,knee,long,large #12 ea 07/02/20 bumetanide 2 mg tablet 2 mg PO DAILY 90 Days #90 tab 07/09/20 warfarin 5 mg tablet 5 mg PO DAILY 90 Days #110 tab 08/01/20 folic acid 1 mg tablet 3 mg PO DAILY #90 tab 09/05/20 Anoro Ellipta 62.5 mcg-25 1 ea PO DAILY 90 Days #3 ea NS 09/06/20 mcg/actuation powder for inhalation (umeclidinium-vilanterol) gabapentin 300 mg capsule 300 mg PO BEDTIME #30 cap 10/01/20 adalimumab 40 mg/0.8 mL See Rx Instructions SUBCUT 10/23/20 subcutaneous pen kit (Humira Pen) .COMPLEX #2 ea diltiazem HCl 180 mg 180 mg PO DAILY #90 cap 10/29/20 capsule,extended release 24 hr (Cartia XT) lisinopril 5 mg tablet 5 mg PO DAILY #90 tab 10/29/20 methotrexate sodium 2.5 mg tablet 20 mg PO QWEEK #32 tab 01/27/21 Allergies Allergy/AdvReac Type Severity Reaction Status Date / Time Penicillins [PCN] Allergy Unknown UNKNOWN- Verified 01/29/21 09:58 RXN CHILD/? HIVES Review of Systems Review of Systems: Yes all other systems are reviewed and are negative [facility] Past Medical History Medical History Atrial fibrillation GERD (gastroesophageal reflux disease) Hemothorax Hypercholesterolemia Hypertension Impaired glucose tolerance Insomnia Peripheral vascular disease Primary osteoarthritis of knees, bilateral Right renal stone Seronegative rheumatoid arthritis Severe obstructive sleep apnea Vitamin D deficiency Surgical History History of umbilical hernia repair Hx of tonsillectomy S/P emergency tracheotomy for assistance in breathing Family History Family History Father No problems noted. Mother Rheumatoid arteritis Social History Social History Household Members: Significant Other Housing: Apartment Alcohol intake: current Alcohol intake frequency: holidays/special occasions only Alcohol type: beer and hard liquor Patient Tobacco Use Status: Current everyday Tobacco user Tobacco use type: Cigarette Years Smoked: 49 years e-Cigarette/Vaping Use: Never Used Second Hand Smoke Exposure: No Use of substances other than those prescribed or required for medical reasons: Yes Substance Use Type: Marijuana Advance Directives: No Advance Directives Information Provided: Yes service: No Current occupational status: retired Physical Exam Vital Signs: Vital Signs: Last Vital Signs Temp 97.6 F 02/02/21 17:46 Pulse 56 02/02/21 17:46 Resp 20 02/02/21 17:46 BP 118/54 L 02/02/21 17:46 Pulse Ox 98 02/02/21 17:27 BMI result Body Mass Index 32.5 Const: Other: Awake, alert, male patient, on 100% non-rebreather mask at 15 L, answers all questions appropriately, appropriately. HENMT: Head: Yes normal to inspection, Yes normocephalic and Yes atraumatic Ears: external ears normal General nose exam: Normal external nose present Face and sinus: Yes normal facial exam Mouth: Normal oral and palatal mucosa present Throat: Yes posterior oropharynx normal Eyes: General: appearance normal, both eyes and all related structures Pupils: Equal, round and reactive pupils present Neck: Neck: Yes normal visual inspection, Yes no lymphadenopathy, Yes trachea midline and Yes supple Chest: Chest palpation & inspection: normal inspection of the chest and normal palpation of entire chest wall Resp: Other: Breath sounds are symmetric bilaterally, diffuse rhonchi and diffuse rales with no wheezing, good inspiratory and expiratory flow Cardio: Rate: regular rate Rhythm: regular rhythm Heart sounds: S1 normal heart sound present, S2 normal heart sound present and no murmurs GI: Inspection: Yes normal to inspection Palpation (GI): Soft to palpation, nontender and no guarding Auscultation: normal bowel sounds : General: Yes no CVA tenderness Back/Spine/Pelvis: Back: no CVA tenderness Skin: General skin exam: no rashes or lesions noted Neuro: Cranial nerves: Yes CN's II-XII intact bilaterally and Yes Equal, round and reactive pupils present Cognition (Neuro): normal cognition Motor exam (neuro): 5/5 motor strength present throughout Extrem: Other: Trace pitting edema bilaterally symmetric, moves all extremities with normal strength Psych: Appearance: grossly normal Speech and movement: Normal speech and movement present Affect: normal affect Attitude: cooperative Thought process: Normal thought process present Thought content: Normal thought content present Course Course Course Narrative: 65-year-old male who presents emergency department for evaluation of shortness of breath x1 week and subjective fever, chills, productive cough x3 days. On presentation to the emergency department the patient was dyspneic, tachypneic and found to have an O2 saturation of 75% on room air. He was brought immediately to an ER bed and placed on 100% non-rebreather which improved his dyspnea and his tachypnea. His O2 saturation was 95% on 100% non-rebreather on 15 liters/minute flow. Vital signs did reveal fever 101.3, tachypnea with a respiratory rate of 30 breaths per minute and a normal blood pressure of 148/68. Chest x-ray was done and on the portable monitor the patient appears to have a left lower lobe and right lower lobe infiltrate. I did order a CBC, CMP, BNP, troponin, PT/INR, PTT, ETOH level, 12 EKG, ABG and blood cultures x2. Patient was ordered to get normal saline IV x1 L. I also ordered to get Tylenol 975 mg orally for his fever. Patient's pneumonia will be treated with ceftriaxone 1 g IV and azithromycin 500 mg IV. 1843: Laboratory evaluation: CBC was normal. INR was therapeutic at 2.4. Patient does take warfarin for AFib. First tight sensitivity troponin was elevated at 88.7, this will be repeated at 7:00 p.m.. COVID-19 was positive. Chest x-ray was interpreted by the radiologist as left lower lobe and lower segment of right upper lobe patchy infiltrates. COVID-19 was positive. ABG on 100% non-rebreather mask 15 liters/minute pH 7.53, pCO2 27, PO2 120, bicarb 22. This is consistent with respiratory alkalosis secondary to his rapid respiratory rate. Twelve EKG did reveal atrial fibrillation with a rate of 61 with a right bundle-branch block and Q-waves in 2, 3 and AVF compared to EKG dated 09/24/2020 these Q-waves are new. The patient will be placed in a isolation room and started on high-flow oxygen to help improve his work of breathing and to give him some PEEP. Patient was initially seen by the driver utility worker who felt the patient could be managed on the intermediate care unit. I will discuss the admission with the covering hospitalist. 1930: Patient's presentation was discussed with the covering hospitalist, Dr. Egan and the patient will be admitted to the hospital service. MDM - SOB/Dyspnea Lab Data Result diagrams: 02/02/21 16:08 02/02/21 16:08 Labs: Lab Results 02/02/21 02/02/21 02/02/21 Range/Units 16:08 16:08 16:08 WBC 7.0 (4.8-10.8) X10*3/uL RBC 4.34 L (4.60-5.80) X10*6/uL Hgb 14.9 (14.0-18.0) g/dl Hct 43.0 (42.0-52.0) % MCV 99.1 H (80.0-98.0) fL MCH 34.3 H (27.0-33.0) pg MCHC 34.7 (31.0-36.0) g/dl RDW 14.6 (11.0-16.0) % Plt Count 191 (160-400) X10*3/uL MPV 10.1 (9.4-12.4) fL Immature Gran % (Auto) 0.9 H (0.0-0.4) % Neut % (Auto) 84.6 H (45-73) % Lymph % (Auto) 9.3 L (20-40) % [place] % (Auto) 4.9 (2-11) % Eos % (Auto) 0.0 (0-4) % Baso % (Auto) 0.3 (0-2) % Lymph # (Auto) 0.7 L (1.2-4.9) X10*3/uL [place] # (Auto) 0.3 (0.1-1.2) X10*3/uL Eos # (Auto) 0.0 (0.0-0.4) X10*3/uL Baso # (Auto) 0.0 (0.0-0.2) X10*3/uL Abs Immat Gran (auto) 0.06 H (0.00-0.03) X10*3/uL Absolute Neuts (auto) 5.9 (2.0-8.3) x10*3/uL Absolute Nucleated RBC 0.000 (0.0-0.012) X10*3/uL Nucleated RBC % (auto) 0.0 (0.0-0.2) /100WBC Smear Tech's Comments VERIFIED PT (9.9-13.0) SEC INR (0.9-1.1) APTT (24.1-38.0) SEC O2 Saturation % ABG pH at Pt Temp (7.35-7.45) ABG pH (Temp Correct) (7.35-7.45) ABG pCO2 at Pt Temp (32-45) mmHg ABG pCO2 (Temp Corrct (32-45) mmHg ABG pO2 at Pt Temp (83-108) mmHg ABG pO2 (Temp Correct (83-108) ABG HCO3 (22-26) mmol/L ABG Base Excess (Actual) mmol/L Sodium 138 (135-145) mmol/L Potassium 3.6 (3.3-5.1) mmol/L Chloride 102 (96-108) mmol/L Carbon Dioxide 23 (22-29) mmol/L Anion Gap 17 (12-20) BUN 16 (9-16) mg/dL Creatinine 0.97 (0.5-1.4) mg/dL Estim Creat Clear Calc 105.1 Estimated GFR > 60 Random Glucose 103 (60-115) mg/dL Lactic Acid (0.5-2.0) mmol/L Calcium 8.4 D (8.4-10.2) mg/dL Total Bilirubin 1.2 H (0.0-1.0) mg/dL AST 66 H (5-37) U/L ALT 32 (0-40) U/L Alkaline Phosphatase 53 (39-117) U/L Troponin I High Sens 88.7 H (<3.5-35.0) ng/L B-Natriuretic Peptide (<100) pg/mL Total Protein 6.3 L (6.5-8.0) g/dL Albumin 3.9 (3.5-5.0) g/dL Ethyl Alcohol mg/dL Influenza Type A (PCR) (Negative) Influenza Type B (PCR) (Negative) RSV RNA Qual (PCR) (Negative) SARS-CoV-2 RNA (RT-PCR) (Negative) 02/02/21 02/02/21 02/02/21 Range/Units 16:08 16:08 16:08 WBC (4.8-10.8) X10*3/uL RBC (4.60-5.80) X10*6/uL Hgb (14.0-18.0) g/dl Hct (42.0-52.0) % MCV (80.0-98.0) fL MCH (27.0-33.0) pg MCHC (31.0-36.0) g/dl RDW (11.0-16.0) % Plt Count (160-400) X10*3/uL MPV (9.4-12.4) fL Immature Gran % (Auto) (0.0-0.4) % Neut % (Auto) (45-73) % Lymph % (Auto) (20-40) % [place] % (Auto) (2-11) % Eos % (Auto) (0-4) % Baso % (Auto) (0-2) % Lymph # (Auto) (1.2-4.9) X10*3/uL [place] # (Auto) (0.1-1.2) X10*3/uL Eos # (Auto) (0.0-0.4) X10*3/uL Baso # (Auto) (0.0-0.2) X10*3/uL Abs Immat Gran (auto) (0.00-0.03) X10*3/uL Absolute Neuts (auto) (2.0-8.3) x10*3/uL Absolute Nucleated RBC (0.0-0.012) X10*3/uL Nucleated RBC % (auto) (0.0-0.2) /100WBC Smear Tech's Comments PT 27.4 H (9.9-13.0) SEC INR 2.4 H (0.9-1.1) APTT 43.1 H (24.1-38.0) SEC O2 Saturation % ABG pH at Pt Temp (7.35-7.45) ABG pH (Temp Correct) (7.35-7.45) ABG pCO2 at Pt Temp (32-45) mmHg ABG pCO2 (Temp Corrct (32-45) mmHg ABG pO2 at Pt Temp (83-108) mmHg ABG pO2 (Temp Correct (83-108) ABG HCO3 (22-26) mmol/L ABG Base Excess (Actual) mmol/L Sodium (135-145) mmol/L Potassium (3.3-5.1) mmol/L Chloride (96-108) mmol/L Carbon Dioxide (22-29) mmol/L Anion Gap (12-20) BUN (9-16) mg/dL Creatinine (0.5-1.4) mg/dL Estim Creat Clear Calc Estimated GFR Random Glucose (60-115) mg/dL Lactic Acid 1.6 (0.5-2.0) mmol/L Calcium (8.4-10.2) mg/dL Total Bilirubin (0.0-1.0) mg/dL AST (5-37) U/L ALT (0-40) U/L Alkaline Phosphatase (39-117) U/L Troponin I High Sens (<3.5-35.0) ng/L B-Natriuretic Peptide (<100) pg/mL Total Protein (6.5-8.0) g/dL Albumin (3.5-5.0) g/dL Ethyl Alcohol mg/dL Influenza Type A (PCR) NEGATIVE (Negative) Influenza Type B (PCR) NEGATIVE (Negative) RSV RNA Qual (PCR) NEGATIVE (Negative) SARS-CoV-2 RNA (RT-PCR) POSITIVE A (Negative) 02/02/21 02/02/21 02/02/21 Range/Units 16:08 16:09 17:35 WBC (4.8-10.8) X10*3/uL RBC (4.60-5.80) X10*6/uL Hgb (14.0-18.0) g/dl Hct (42.0-52.0) % MCV (80.0-98.0) fL MCH (27.0-33.0) pg MCHC (31.0-36.0) g/dl RDW (11.0-16.0) % Plt Count (160-400) X10*3/uL MPV (9.4-12.4) fL Immature Gran % (Auto) (0.0-0.4) % Neut % (Auto) (45-73) % Lymph % (Auto) (20-40) % [place] % (Auto) (2-11) % Eos % (Auto) (0-4) % Baso % (Auto) (0-2) % Lymph # (Auto) (1.2-4.9) X10*3/uL [place] # (Auto) (0.1-1.2) X10*3/uL Eos # (Auto) (0.0-0.4) X10*3/uL Baso # (Auto) (0.0-0.2) X10*3/uL Abs Immat Gran (auto) (0.00-0.03) X10*3/uL Absolute Neuts (auto) (2.0-8.3) x10*3/uL Absolute Nucleated RBC (0.0-0.012) X10*3/uL Nucleated RBC % (auto) (0.0-0.2) /100WBC Smear Tech's Comments PT (9.9-13.0) SEC INR (0.9-1.1) APTT (24.1-38.0) SEC O2 Saturation 98.0 % ABG pH at Pt Temp 7.54 H (7.35-7.45) ABG pH (Temp Correct) 7.53 H (7.35-7.45) ABG pCO2 at Pt Temp 26 L (32-45) mmHg ABG pCO2 (Temp Corrct 27 L (32-45) mmHg ABG pO2 at Pt Temp 114 H (83-108) mmHg ABG pO2 (Temp Correct 120 H (83-108) ABG HCO3 22 (22-26) mmol/L ABG Base Excess (Actual) 2.0 mmol/L Sodium (135-145) mmol/L Potassium (3.3-5.1) mmol/L Chloride (96-108) mmol/L Carbon Dioxide (22-29) mmol/L Anion Gap (12-20) BUN (9-16) mg/dL Creatinine (0.5-1.4) mg/dL Estim Creat Clear Calc Estimated GFR Random Glucose (60-115) mg/dL Lactic Acid (0.5-2.0) mmol/L Calcium (8.4-10.2) mg/dL Total Bilirubin (0.0-1.0) mg/dL AST (5-37) U/L ALT (0-40) U/L Alkaline Phosphatase (39-117) U/L Troponin I High Sens (<3.5-35.0) ng/L B-Natriuretic Peptide 86 (<100) pg/mL Total Protein (6.5-8.0) g/dL Albumin (3.5-5.0) g/dL Ethyl Alcohol < 10 mg/dL Influenza Type A (PCR) (Negative) Influenza Type B (PCR) (Negative) RSV RNA Qual (PCR) (Negative) SARS-CoV-2 RNA (RT-PCR) (Negative) ECG Data Attestation: I personally reviewed and interpreted this ECG as follows: Interpretation: 1723: Atrial fibrillation with a rate of 61, prolonged LA interval of 120 milliseconds, normal QTC of 457 milliseconds, right bundle-branch block, no ST segment elevation, no ST segment depression, Q-waves in 2, 3, AVF, compared to EKG dated 09/24/2020, the right bundle-branch block was old but the Q-waves in 2, 3 and AVF appear to be new. Critical Care Time Critical Care Time Critical Care Time: Yes Total Critical Care Time: 80 Attestation: Critical Care: The patient was critically ill with a high probability of imminent or life threatening deterioration. I spent greater than 30 minutes of discontinuous time evaluating the patient,delivering critical care at the bedside, discussing and evaluating pertinent data with consultants. Critical care time does not include time spent performing separately billable procedures or teaching. Total time spent performing critical care was 80 minutes. Discharge Plan Discharge Clinical Impression: Pneumonia due to 2019-nCoV, Hypoxia, Elevated troponin Prescriptions: No Action pravastatin 20 mg tablet 20 mg PO DAILY Qty: 90 RF: 3 omeprazole 20 mg capsule,delayed release(DR/EC) 20 mg PO DAILY Qty: 90 RF: 3 (DME) compr.stocking,knee,long,large Misc See Rx Instructions .ROUTE .MEDSUPPLY Qty: 12 RF: 0 bumetanide 2 mg tablet 2 mg PO DAILY 90 Days Qty: 90 RF: 2 warfarin 5 mg tablet 5 mg PO DAILY 90 Days Qty: 110 RF: 3 folic acid 1 mg tablet 3 mg PO DAILY Qty: 90 RF: 5 Anoro Ellipta 62.5-25 mcg/actuation blister with device 1 ea PO DAILY 90 Days Qty: 3 RF: 3 gabapentin 300 mg capsule 300 mg PO BEDTIME Qty: 30 RF: 5 Humira Pen 40 mg/0.8 mL pen injector kit See Rx Instructions subcut .COMPLEX Qty: 2 RF: 3 diltiazem HCl [Cartia XT] 180 mg capsule,extended release 24hr 180 mg PO DAILY Qty: 90 RF: 1 lisinopril 5 mg tablet 5 mg PO DAILY Qty: 90 RF: 3 methotrexate sodium 2.5 mg tablet 20 mg PO QWEEK Qty: 32 RF: 2 albuterol sulfate 90 mcg/actuation HFA aerosol inhaler 2 puff inhalation Q4-6H PRN (Reason: shortness of breath or wheezing) 90 Days Qty: 1 RF: 4 cholecalciferol (vitamin D3) 50 mcg (2,000 unit) capsule 50 mcg PO DAILY RF: 0
[2021-02-02 16:25] LABS: INTERNATIONAL NORM RATIO 2.4 (0.9-1.1); Lactic Acid 1.6 mmol/L (0.5-2.0); Prothrombin Time 27.4 SEC (9.9-13.0)
[2021-02-02 16:26] LABS: Basophils Percent Auto 0.3 % (0-2); Hemoglobin 14.9 g/dl (14.0-18.0); Imm Gran Abs Auto 0.06 X10*3/uL (0.00-0.03); Imm Gran Pct Auto 0.9 % (0.0-0.4); Lymphocytes Absolute Auto 0.7 X10*3/uL (1.2-4.9); Lymphocytes Percent Auto 9.3 % (20-40); MANUAL DIFF FLAG SCAN; Mean Corpuscular HGB Conc 34.7 g/dl (31.0-36.0); Mean Corpuscular Hemoglobin 34.3 pg (27.0-33.0); Mean Corpuscular Volume 99.1 fL (80.0-98.0); Mean Platelet Volume 10.1 fL (9.4-12.4); Monocytes Absolute Auto 0.3 X10*3/uL (0.1-1.2); Monocytes Percent Auto 4.9 % (2-11); Neutrophils Absolute Auto 5.9 x10*3/uL (2.0-8.3); Neutrophils Percent Auto 84.6 % (45-73); Platelet Count 191 X10*3/uL (160-400); Red Blood Count 4.34 X10*6/uL (4.60-5.80); Red Cell Distribution Width 14.6 % (11.0-16.0); SCAN SMEAR FLAG 1
[2021-02-02 16:28] LABS: Partial Thromboplastin Time 43.1 SEC (24.1-38.0)
[2021-02-02 16:37] LABS: Alanine Aminotransferase 32 U/L (0-40); Albumin Level 3.9 g/dL (3.5-5.0); Alkaline Phosphatase 53 U/L (39-117); Anion Gap 17 (12-20); Aspartate Amino Transferase 66 U/L (5-37); Bilirubin Total 1.2 mg/dL (0.0-1.0); Blood Urea Nitrogen 16 mg/dL (9-16); Calcium 8.4 mg/dL (8.4-10.2); Carbon Dioxide 23 mmol/L (22-29); Chloride 102 mmol/L (96-108); Creatinine Clr Calc Pharmacy 105.1; Estimated Glomerular Filt Rate > 60; Glucose Random 103 mg/dL (60-115); Potassium 3.6 mmol/L (3.3-5.1); Sodium 138 mmol/L (135-145); Total Protein 6.3 g/dL (6.5-8.0)
[2021-02-02 16:40] LABS: B Type Natriuretic Peptide 86 pg/mL (<100); Troponin-I High Sensitivity 88.7 ng/L (<3.5-35.0)
[2021-02-02 16:42] LABS: SLIDE REVIEW VERIFIED
[2021-02-02 16:57] LABS: Influenza A PCR NEGATIVE (Negative); Influenza B PCR NEGATIVE (Negative); Resp Syncy Virus RNA Qual PCR NEGATIVE (Negative); SARS COV2 PCR INHOUSE POSITIVE (Negative)
[2021-02-02] MEDS: cefTRIAXone sodium 1 GM in 0.9 % Sodium Chloride 50 ML IV (16:59)
--- NOTE | 2021-02-02 17:00 | PC.NURSE ---
patient a&ox3, iv antibiotics running per order, quality assurance monitor chassis afib 50s, 98% on NRB mask, son at bedside, will continue to monitor.
[2021-02-02 17:27] VITALS: BP 120/56; PULSE 57; RESP 22; TEMP 37; O2SAT 98
[2021-02-02 17:46] VITALS: BP 118/54; PULSE 56; RESP 20; TEMP 36.4
[2021-02-02] MEDS: Azithromycin 500 MG in 0.9 % Sodium Chloride 250 ML 125 MG IV (17:46)
--- NOTE | 2021-02-02 17:48 | PC.NURSE ---
patient a&ox3, covid precautions intact, nrb pt is 98%, vitals otherwise stable, iv antibiotics running per order.
[2021-02-02 18:31] LABS: Ethanol < 10 mg/dL
[2021-02-02 20:03] LABS: Troponin-I High Sensitivity 79.3 ng/L (<3.5-35.0)
[2021-02-02] MEDS: dexAMETHasone sod phosphate 4 MG/ML VIAL 6 MG IVPUSH (20:05)
[2021-02-02 20:09] VITALS: PULSE 101; RESP 20; O2SAT 94
--- NOTE | 2021-02-02 20:24 | PC.NURSE ---
pt medicated as per emar. pt requesting food to eat. pt awaiting for room assignment. will continue to monitor pt.
--- NOTE | 2021-02-02 22:04 | PC.NURSE ---
med rec done.
[2021-02-03] VITALS (17 sets, daily range): BP systolic 133–151; BP diastolic 62–88; PULSE 60–79; RESP 18–27; TEMP 36.3–37.7; O2SAT 85–99; BMI 32.5
--- NOTE | 2021-02-03 04:55 | PC.NURSE ---
PT RESTING IN STRETCHER AWAITING FOR FURTHER ORDERS. PT AWAITING FOR ROOM ASSIGNMENT. PT DENIES COMPLAINTS AT THIS TIME.
--- NOTE | 2021-02-03 05:49 | PM.IMHP ---
History of Present Illness Date of Service: 02/02/21 Chief Complaint: shortness of breath patient was seen and admitted on 02/02 this is a 65-year-old male with past medical history of AFib, GERD, HLD, HTN, PVD, RA, JENNIFER, presents to the hospital with complaints of shortness of breath, cough, sputum production, fever, for the past 1 week. Reports that initially started with shortness of breath better with ago but has developed worsening cough for the past 2-3 days. Use also short of breath at rest, he denies having any chest pain, no abdominal pain nausea or vomiting, no diarrhea constipation, no urinary symptoms and no lower extremity edema due had no loss of appetite taste or smell. Patient reports that he is vaccinated against COVID, last booster shot taking on 12/31. on arrival to the ED patient noted to be hypoxic with an O2 level of 75% on room air, fever of 101.3, respiratory rate of 30 Labs are significant for WBC count of 7.0, hemoglobin of 14.9, hematocrit 43.0, PT of 27.4, INR of 2.4, pH of 7.54, high sensitivity troponin of 80.7 that decreased to 79.3, COVID-19 positive. EKG shows AFib right bundle-branch block, with Q-waves were not present in previous EKG chest x-ray shows crease patchy opacities in the right upper lobe and left lung base concerning for multifocal pneumonia patient will be admitted for further management Review of Systems Review of Systems: Yes all other systems are reviewed and are negative [facility] Medical History (Updated 02/03/21 @ 05:57 by Vernon Egan MD) Atrial fibrillation Cor pulmonale (chronic) Current use of anticoagulant therapy GERD (gastroesophageal reflux disease) Hemothorax History of cardioversion Hypercholesterolemia Hypertension Impaired glucose tolerance 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 Mother Rheumatoid arteritis Surgical History History of umbilical hernia repair Hx of tonsillectomy S/P emergency tracheotomy for assistance in breathing Social History Household Members: Significant Other Housing: Apartment Alcohol intake: current Alcohol intake frequency: holidays/special occasions only Alcohol type: beer and hard liquor Patient Tobacco Use Status: Current everyday Tobacco user Tobacco use type: Cigarette Years Smoked: 49 years e-Cigarette/Vaping Use: Never Used Second Hand Smoke Exposure: No Use of substances other than those prescribed or required for medical reasons: Yes Substance Use Type: Marijuana Advance Directives: No Advance Directives Information Provided: Yes service: No Current occupational status: retired [employer] Allergies Allergy/AdvReac Type Severity Reaction Status Date / Time Penicillins [PCN] Allergy Unknown UNKNOWN- Verified 01/29/21 09:58 RXN CHILD/? HIVES Active Medications: Current Medications Acetaminophen (Acetaminophen 325 Mg Tablet) 650 mg PO Q6H PRN PRN Reason: Pain, Mild (Pain Scale 1-3) Dexamethasone Sodium Phosphate (Dexamethasone Sod Phosphate 4 Mg/Ml Vial) 6 mg IVPUSH DAILY [facility] Docusate Sodium (Docusate Sodium 100 Mg Capsule) 100 mg PO DAILY PRN PRN Reason: Constipation Ondansetron HCl (Ondansetron Hcl 4 Mg/2 Ml Vial) 4 mg IVPUSH Q8H PRN PRN Reason: Nausea and Vomiting Sodium Chloride (0.9 % Sodium Chloride Flush 3 Ml Syringe) 3 ml IVFLUSH QSHIFT [facility] Last Admin: 02/03/21 04:54 Dose: Not Given Documented by: Home Medications Medication Instructions Recorded Confirmed Last Taken Type bumetanide 2 mg tablet 2 mg PO DAILY PRN 02/02/21 02/02/21 Unknown History adalimumab 40 mg/0.8 mL 40 mg SUBCUT Q2W 02/03/21 02/03/21 Unknown History subcutaneous pen kit (Humira Pen) gabapentin 300 mg capsule 1 cap PO DAILY 02/03/21 02/03/21 Unknown History Physical Exam Vital Signs and Narrative: Vital Signs: Last Vital Signs Temp 97.6 F 02/02/21 17:46 Pulse 56 02/02/21 17:46 Resp 20 02/03/21 04:59 BP 118/54 L 02/02/21 17:46 Pulse Ox 98 02/02/21 17:27 BMI result Body Mass Index 32.5 Const: Other: ill-appearing General: cooperative and no acute distress Orientation/consciousness: patient oriented x3 Eyes: General: appearance normal, both eyes and all related structures Pupils: Equal, round and reactive pupils present Resp: Other: on high-flow oxygen no respiratory distress crackles bilaterally Effort & Inspection: normal respiratory effort Auscultation: clear to auscultation bilaterally Cardio: Other: irregular rhythm Rhythm: regular rhythm GI: Palpation (GI): Soft to palpation Auscultation: normal bowel sounds Skin: General skin exam: no rashes or lesions noted Neuro: General: patient oriented x3 Cranial nerves: Yes Equal, round and reactive pupils present Cognition (Neuro): normal cognition Extrem: General: Yes normal to inspection and Yes no pedal edema Results Labs CBC and Chem 7: 02/02/21 16:08 02/02/21 16:08 Labs: Laboratory Results - last 24 hr 02/02/21 02/02/21 02/02/21 16:08 16:08 16:08 MCV 99.1 H MCH 34.3 H MCHC 34.7 RDW 14.6 Plt Count 191 MPV 10.1 Immature Gran % (Auto) 0.9 H Neut % (Auto) 84.6 H Lymph % (Auto) 9.3 L [place] % (Auto) 4.9 Eos % (Auto) 0.0 Baso % (Auto) 0.3 Lymph # (Auto) 0.7 L [place] # (Auto) 0.3 Eos # (Auto) 0.0 Baso # (Auto) 0.0 Abs Immat Gran (auto) 0.06 H Absolute Neuts (auto) 5.9 Absolute Nucleated RBC 0.000 Nucleated RBC % (auto) 0.0 Smear Tech's Comments VERIFIED PT INR APTT O2 Saturation ABG pH at Pt Temp ABG pH (Temp Correct) ABG pCO2 at Pt Temp ABG pCO2 (Temp Corrct ABG pO2 at Pt Temp ABG pO2 (Temp Correct ABG HCO3 ABG Base Excess (Actual) Anion Gap 17 Estim Creat Clear Calc 105.1 Estimated GFR > 60 Random Glucose 103 Lactic Acid Calcium 8.4 D Total Bilirubin 1.2 H AST 66 H ALT 32 Alkaline Phosphatase 53 Troponin I High Sens 88.7 H B-Natriuretic Peptide Total Protein 6.3 L Albumin 3.9 Ethyl Alcohol Influenza Type A (PCR) Influenza Type B (PCR) RSV RNA Qual (PCR) SARS-CoV-2 RNA (RT-PCR) 02/02/21 02/02/21 02/02/21 16:08 16:08 16:08 MCV MCH MCHC RDW Plt Count MPV Immature Gran % (Auto) Neut % (Auto) Lymph % (Auto) [place] % (Auto) Eos % (Auto) Baso % (Auto) Lymph # (Auto) [place] # (Auto) Eos # (Auto) Baso # (Auto) Abs Immat Gran (auto) Absolute Neuts (auto) Absolute Nucleated RBC Nucleated RBC % (auto) Smear Tech's Comments PT 27.4 H INR 2.4 H APTT 43.1 H O2 Saturation ABG pH at Pt Temp ABG pH (Temp Correct) ABG pCO2 at Pt Temp ABG pCO2 (Temp Corrct ABG pO2 at Pt Temp ABG pO2 (Temp Correct ABG HCO3 ABG Base Excess (Actual) Anion Gap Estim Creat Clear Calc Estimated GFR Random Glucose Lactic Acid 1.6 Calcium Total Bilirubin AST ALT Alkaline Phosphatase Troponin I High Sens B-Natriuretic Peptide Total Protein Albumin Ethyl Alcohol Influenza Type A (PCR) NEGATIVE Influenza Type B (PCR) NEGATIVE RSV RNA Qual (PCR) NEGATIVE SARS-CoV-2 RNA (RT-PCR) POSITIVE A 02/02/21 02/02/21 02/02/21 16:08 16:09 17:35 MCV MCH MCHC RDW Plt Count MPV Immature Gran % (Auto) Neut % (Auto) Lymph % (Auto) [place] % (Auto) Eos % (Auto) Baso % (Auto) Lymph # (Auto) [place] # (Auto) Eos # (Auto) Baso # (Auto) Abs Immat Gran (auto) Absolute Neuts (auto) Absolute Nucleated RBC Nucleated RBC % (auto) Smear Tech's Comments PT INR APTT O2 Saturation 98.0 ABG pH at Pt Temp 7.54 H ABG pH (Temp Correct) 7.53 H ABG pCO2 at Pt Temp 26 L ABG pCO2 (Temp Corrct 27 L ABG pO2 at Pt Temp 114 H ABG pO2 (Temp Correct 120 H ABG HCO3 22 ABG Base Excess (Actual) 2.0 Anion Gap Estim Creat Clear Calc Estimated GFR Random Glucose Lactic Acid Calcium Total Bilirubin AST ALT Alkaline Phosphatase Troponin I High Sens B-Natriuretic Peptide 86 Total Protein Albumin Ethyl Alcohol < 10 Influenza Type A (PCR) Influenza Type B (PCR) RSV RNA Qual (PCR) SARS-CoV-2 RNA (RT-PCR) 02/02/21 19:25 MCV MCH MCHC RDW Plt Count MPV Immature Gran % (Auto) Neut % (Auto) Lymph % (Auto) [place] % (Auto) Eos % (Auto) Baso % (Auto) Lymph # (Auto) [place] # (Auto) Eos # (Auto) Baso # (Auto) Abs Immat Gran (auto) Absolute Neuts (auto) Absolute Nucleated RBC Nucleated RBC % (auto) Smear Tech's Comments PT INR APTT O2 Saturation ABG pH at Pt Temp ABG pH (Temp Correct) ABG pCO2 at Pt Temp ABG pCO2 (Temp Corrct ABG pO2 at Pt Temp ABG pO2 (Temp Correct ABG HCO3 ABG Base Excess (Actual) Anion Gap Estim Creat Clear Calc Estimated GFR Random Glucose Lactic Acid Calcium Total Bilirubin AST ALT Alkaline Phosphatase Troponin I High Sens 79.3 H B-Natriuretic Peptide Total Protein Albumin Ethyl Alcohol Influenza Type A (PCR) Influenza Type B (PCR) RSV RNA Qual (PCR) SARS-CoV-2 RNA (RT-PCR) Imaging Radiologist's Impressions: Impressions Chest X-Ray 02/02/21 16:03 IMPRESSION: Increased patchy opacities in the right upper lobe and left lung base, concerning for multifocal pneumonia. Assessment and Plan (1) Pneumonia due to 2019-nCoV: Status: Acute (2) Acute respiratory failure with hypoxia: Status: Acute (3) Elevated troponin: Status: Acute this is a 65-year-old male with past medical history of COPD, AFib, HTN, among others who presents to the hospital with complaints of shortness of breath found to be hypoxic and have COVID-19 pneumonia, started on dexamethasone will be admitted for further management # acute hypoxic respiratory failure - most likely secondary to COVID-19 pneumonia in and already compromise lung with history of COPD and sleep apnea - patient 75% on room air upon arrival - will start him on dexamethasone, continue home inhalers, - monitor respiratory status # COVID-19 pneumonia - patient vaccinated against the wires including a booster on 12/31 - will continue oxygen supplement - dexamethasone as above - monitor respiratory status # elevated troponin - most likely type 2 secondary to hypoxia - no delta - EKG showing Q-waves which are not present in the past - will most likely need cardiology follow-up outpatient # AFib - continue warfarin as PT INR therapeutic, does not appear to be on rate controlling medications according to the home medication list # HTN - BP slightly low - hold lisinopril DVT prophylaxis: Warfarin Quality Stroke Does the patient have a stroke diagnosis?: No VTE Prior VTE?: No VTE Risk Level:: Medical - moderate - high VTE Device Contraindication: Treatment Not Indicated VTE Drug Contraindication: N/A - Med Ordered
[2021-02-03 06:34] LABS: Basophils Percent Auto 0.1 % (0-2); Hematocrit 42.3 % (42.0-52.0); Hemoglobin 14.4 g/dl (14.0-18.0); Imm Gran Abs Auto 0.06 X10*3/uL (0.00-0.03); Imm Gran Pct Auto 0.8 % (0.0-0.4); Lymphocytes Absolute Auto 0.3 X10*3/uL (1.2-4.9); Lymphocytes Percent Auto 4.1 % (20-40); MANUAL DIFF FLAG SCAN; Mean Corpuscular Hemoglobin 34.2 pg (27.0-33.0); Mean Corpuscular Volume 100.5 fL (80.0-98.0); Monocytes Absolute Auto 0.2 X10*3/uL (0.1-1.2); Monocytes Percent Auto 2.3 % (2-11); Neutrophils Percent Auto 92.7 % (45-73); Platelet Count 197 X10*3/uL (160-400); Red Blood Count 4.21 X10*6/uL (4.60-5.80); Red Cell Distribution Width 14.7 % (11.0-16.0); SCAN SMEAR FLAG 1; White Blood Count 7.5 X10*3/uL (4.8-10.8)
[2021-02-03 06:36] LABS: INTERNATIONAL NORM RATIO 2.9 (0.9-1.1); Prothrombin Time 33.8 SEC (9.9-13.0)
[2021-02-03 06:36] LABS: Anion Gap 14 (12-20); Blood Urea Nitrogen 17 mg/dL (9-16); Calcium 8.6 mg/dL (8.4-10.2); Carbon Dioxide 26 mmol/L (22-29); Chloride 106 mmol/L (96-108); Creatinine Clr Calc Pharmacy 130.7; Estimated Glomerular Filt Rate > 60; Glucose Random 159 mg/dL (60-115); Potassium 3.9 mmol/L (3.3-5.1); Sodium 142 mmol/L (135-145)
[2021-02-03 07:11] LABS: SLIDE REVIEW VERIFIED
[2021-02-03] MEDS: Omeprazole 20 MG CAPSULE.DR PO (08:37)
[2021-02-03] MEDS: Folic Acid 1 MG TABLET 3 MG PO (08:37)
[2021-02-03] MEDS: Gabapentin 300 MG CAPSULE PO (08:37)
[2021-02-03] MEDS: dexAMETHasone sod phosphate 4 MG/ML VIAL 6 MG IVPUSH (08:37)
[2021-02-03] MEDS: 0.9 % Sodium Chloride Flush 3 ML SYRINGE IVFLUSH ×2 (08:37→18:10)
[2021-02-03] MEDS: Pravastatin Sodium 20 MG TABLET PO (08:37)
--- NOTE | 2021-02-03 09:21 | PC.NURSE ---
pt sitting in stretcher, still tachypneic at mid 30s. SpO2 90-93% on high flow. Still SOB when speaking but otherwise comfortable when resting. vss. Pt to speak to son to bring in inhaler that in nonformulary. Water at bedside on request. call mcdonough in reach. Family updated.
--- NOTE | 2021-02-03 10:00 | PHA.MEDREC ---
Pharmacy Consult ? Medication Reconciliation Pharmacy has completed the medication reconciliation.
--- NOTE | 2021-02-03 10:04 | PM.EVENT ---
Event Note Date of Service: 02/03/21 Event Note: 65-year-old male with past medical history of COPD, AFib, HTN, among others who presents to the hospital with complaints of shortness of breath found to? be hypoxic and have COVID-19 pneumonia, started on dexamethasone will be admitted for further management. patient vaccinated against the wires including a booster on 12/31 Acute hypoxic respiratory failure secondary to COVID-19 pneumonia? patient 75% on room air upon arrival Continue dexamethasone, home inhalers, supplemental oxygen monitor respiratory status on high flow levated troponin -? most likely? type 2 secondary to hypoxia -? no delta -? EKG showing Q-waves which are not present in the past -? will most likely need cardiology follow-up outpatient # ? AFib -? continue warfarin as PT INR therapeutic, does not appear to be on rate controlling medications according to the home medication list #? HTN -? BP slightly low -? hold lisinopril ?DVT prophylaxis:? Warfarin
--- NOTE | 2021-02-03 10:28 | HO.PM.IMPN ---
Subjective Subjective Date of Service: 02/03/21 Interval History: Seen in f/u for acute hypoxic respiratory failure, feels slightly better, still requiring high amoutn of O2 on high flow Review of Systems +sob no fever Physical Exam Vital Signs: Vital Signs: Last Vital Signs Temp 97.6 F 02/02/21 17:46 Pulse 70 02/03/21 06:03 Resp 23 H 02/03/21 07:22 BP 141/72 H 02/03/21 06:03 Pulse Ox 93 02/03/21 06:03 BMI result Body Mass Index 32.5 Const: Other: General: AO X 3, no acute distress Resp: diminished breath sound CVS: S1,S2,RRR GI: +BS, NT, no distention Skin: No rash Neuro: motor grossly intact Psych: appropriate affect Objective Data Active Medications Acetaminophen (Acetaminophen 325 Mg Tablet) 650 mg PO Q6H PRN PRN Reason: Pain, Mild (Pain Scale 1-3) Albuterol Sulfate (Albuterol Sulfate 90 Mcg 8 Gm Inhaler) 2 puff INHALE Q4H PRN PRN Reason: shortness of breath or wheezin Bumetanide (Bumetanide 1 Mg Tablet) 2 mg PO DAILY PRN; Protocol PRN Reason: Dyspnea Dexamethasone Sodium Phosphate (Dexamethasone Sod Phosphate 4 Mg/Ml Vial) 6 mg IVPUSH DAILY [facility] Last Admin: 02/03/21 08:37 Dose: 6 mg Documented by: RENAY Docusate Sodium (Docusate Sodium 100 Mg Capsule) 100 mg PO DAILY PRN PRN Reason: Constipation Folic Acid (Folic Acid 1 Mg Tablet) 3 mg PO DAILY [facility] Last Admin: 02/03/21 08:37 Dose: 3 mg Documented by: RENAY Gabapentin (Gabapentin 300 Mg Capsule) 300 mg PO DAILY [facility] Last Admin: 02/03/21 08:37 Dose: 300 mg Documented by: RENAY Non-Formulary Medication (Umeclidinium-Vilanterol [Anoro Ellipta]) 1 each PO DAILY [facility] Omeprazole (Omeprazole 20 Mg Capsule.) 20 mg PO DAILY@0630 [facility] Last Admin: 02/03/21 08:37 Dose: 20 mg Documented by: RENAY Ondansetron HCl (Ondansetron Hcl 4 Mg/2 Ml Vial) 4 mg IVPUSH Q8H PRN PRN Reason: Nausea and Vomiting Pravastatin Sodium (Pravastatin Sodium 20 Mg Tablet) 20 mg PO DAILY [facility] Last Admin: 02/03/21 08:37 Dose: 20 mg Documented by: RENAY Sodium Chloride (0.9 % Sodium Chloride Flush 3 Ml Syringe) 3 ml IVFLUSH QSHIFT [facility] Last Admin: 02/03/21 08:37 Dose: 3 ml Documented by: RENAY Warfarin Sodium (Warfarin Sodium 5 Mg Tablet) 5 mg PO DAILY@1800 [facility] Labs CBC & Chem 7: 02/03/21 05:57 02/03/21 05:57 Labs: Laboratory Results - last 24 hr 02/02/21 02/02/21 02/02/21 16:08 16:08 16:08 MCV 99.1 H MCH 34.3 H MCHC 34.7 RDW 14.6 Plt Count 191 MPV 10.1 Immature Gran % (Auto) 0.9 H Neut % (Auto) 84.6 H Lymph % (Auto) 9.[address] [place] % (Auto) 4.9 Eos % (Auto) 0.0 Baso % (Auto) 0.3 Lymph # (Auto) 0.[address] [place] # (Auto) 0.3 Eos # (Auto) 0.0 Baso # (Auto) 0.0 Abs Immat Gran (auto) 0.06 H Absolute Neuts (auto) 5.9 Absolute Nucleated RBC 0.000 Nucleated RBC % (auto) 0.0 Smear Tech's Comments VERIFIED PT INR APTT O2 Saturation ABG pH at Pt Temp ABG pH (Temp Correct) ABG pCO2 at Pt Temp ABG pCO2 (Temp Corrct ABG pO2 at Pt Temp ABG pO2 (Temp Correct ABG HCO3 ABG Base Excess (Actual) Anion Gap 17 Estim Creat Clear Calc 105.1 Estimated GFR > 60 Random Glucose 103 Lactic Acid Calcium 8.4 D Total Bilirubin 1.2 H AST 66 H ALT 32 Alkaline Phosphatase 53 Troponin I High Sens 88.7 H B-Natriuretic Peptide Total Protein 6.3 L Albumin 3.9 Ethyl Alcohol Influenza Type A (PCR) Influenza Type B (PCR) RSV RNA Qual (PCR) SARS-CoV-2 RNA (RT-PCR) 02/02/21 02/02/21 02/02/21 16:08 16:08 16:08 MCV MCH MCHC RDW Plt Count MPV Immature Gran % (Auto) Neut % (Auto) Lymph % (Auto) [place] % (Auto) Eos % (Auto) Baso % (Auto) Lymph # (Auto) [place] # (Auto) Eos # (Auto) Baso # (Auto) Abs Immat Gran (auto) Absolute Neuts (auto) Absolute Nucleated RBC Nucleated RBC % (auto) Smear Tech's Comments PT 27.4 H INR 2.4 H APTT 43.1 H O2 Saturation ABG pH at Pt Temp ABG pH (Temp Correct) ABG pCO2 at Pt Temp ABG pCO2 (Temp Corrct ABG pO2 at Pt Temp ABG pO2 (Temp Correct ABG HCO3 ABG Base Excess (Actual) Anion Gap Estim Creat Clear Calc Estimated GFR Random Glucose Lactic Acid 1.6 Calcium Total Bilirubin AST ALT Alkaline Phosphatase Troponin I High Sens B-Natriuretic Peptide Total Protein Albumin Ethyl Alcohol Influenza Type A (PCR) NEGATIVE Influenza Type B (PCR) NEGATIVE RSV RNA Qual (PCR) NEGATIVE SARS-CoV-2 RNA (RT-PCR) POSITIVE A 02/02/21 02/02/21 02/02/21 16:08 16:09 17:35 MCV MCH MCHC RDW Plt Count MPV Immature Gran % (Auto) Neut % (Auto) Lymph % (Auto) [place] % (Auto) Eos % (Auto) Baso % (Auto) Lymph # (Auto) [place] # (Auto) Eos # (Auto) Baso # (Auto) Abs Immat Gran (auto) Absolute Neuts (auto) Absolute Nucleated RBC Nucleated RBC % (auto) Smear Tech's Comments PT INR APTT O2 Saturation 98.0 ABG pH at Pt Temp 7.54 H ABG pH (Temp Correct) 7.53 H ABG pCO2 at Pt Temp 26 L ABG pCO2 (Temp Corrct 27 L ABG pO2 at Pt Temp 114 H ABG pO2 (Temp Correct 120 H ABG HCO3 22 ABG Base Excess (Actual) 2.0 Anion Gap Estim Creat Clear Calc Estimated GFR Random Glucose Lactic Acid Calcium Total Bilirubin AST ALT Alkaline Phosphatase Troponin I High Sens B-Natriuretic Peptide 86 Total Protein Albumin Ethyl Alcohol < 10 Influenza Type A (PCR) Influenza Type B (PCR) RSV RNA Qual (PCR) SARS-CoV-2 RNA (RT-PCR) 02/02/21 02/03/21 02/03/21 19:25 05:57 05:57 MCV 100.5 H MCH 34.2 H MCHC 34.0 RDW 14.7 Plt Count 197 MPV 10.0 Immature Gran % (Auto) 0.8 H Neut % (Auto) 92.7 H Lymph % (Auto) 4.[address] [place] % (Auto) 2.3 Eos % (Auto) 0.0 Baso % (Auto) 0.1 Lymph # (Auto) 0.[address] [place] # (Auto) 0.2 Eos # (Auto) 0.0 Baso # (Auto) 0.0 Abs Immat Gran (auto) 0.06 H Absolute Neuts (auto) 7.0 Absolute Nucleated RBC 0.000 Nucleated RBC % (auto) 0.0 Smear Tech's Comments VERIFIED PT INR APTT O2 Saturation ABG pH at Pt Temp ABG pH (Temp Correct) ABG pCO2 at Pt Temp ABG pCO2 (Temp Corrct ABG pO2 at Pt Temp ABG pO2 (Temp Correct ABG HCO3 ABG Base Excess (Actual) Anion Gap 14 Estim Creat Clear Calc 130.7 Estimated GFR > 60 Random Glucose 159 H D Lactic Acid Calcium 8.6 Total Bilirubin AST ALT Alkaline Phosphatase Troponin I High Sens 79.3 H B-Natriuretic Peptide Total Protein Albumin Ethyl Alcohol Influenza Type A (PCR) Influenza Type B (PCR) RSV RNA Qual (PCR) SARS-CoV-2 RNA (RT-PCR) 02/03/21 06:04 MCV MCH MCHC RDW Plt Count MPV Immature Gran % (Auto) Neut % (Auto) Lymph % (Auto) [place] % (Auto) Eos % (Auto) Baso % (Auto) Lymph # (Auto) [place] # (Auto) Eos # (Auto) Baso # (Auto) Abs Immat Gran (auto) Absolute Neuts (auto) Absolute Nucleated RBC Nucleated RBC % (auto) Smear Tech's Comments PT 33.8 H INR 2.9 H APTT O2 Saturation ABG pH at Pt Temp ABG pH (Temp Correct) ABG pCO2 at Pt Temp ABG pCO2 (Temp Corrct ABG pO2 at Pt Temp ABG pO2 (Temp Correct ABG HCO3 ABG Base Excess (Actual) Anion Gap Estim Creat Clear Calc Estimated GFR Random Glucose Lactic Acid Calcium Total Bilirubin AST ALT Alkaline Phosphatase Troponin I High Sens B-Natriuretic Peptide Total Protein Albumin Ethyl Alcohol Influenza Type A (PCR) Influenza Type B (PCR) RSV RNA Qual (PCR) SARS-CoV-2 RNA (RT-PCR) Assessment and Plan (1) Acute respiratory failure with hypoxia: Status: Acute (2) Pneumonia due to 2019-nCoV: Status: Acute (3) Hypoxia: Status: Acute Assessment and Plan: 65-year-old male with RA on humira, covid vaccinated x3, COPD, AFib, HTN, among others who presents to the hospital with dyspnea with findings of acute hypoxic respiratory failure related to COVID-19 pneumonia #? Acute hypoxic respiratory failure with high O2 requirement. #Covid 19 PNA-fully vaccinated, including booster on 12/31 -continue O2 by high flow -IV Dexamethasone 6 mg daily for 10 days, D2 -Pepcid, Zinc, Vit C #? Elevated troponin, without Delta -? most likely? type 2 secondary to hypoxia -? EKG shows new Q waves -? May need outpatient ischemic work up # ? Chronic AFIB, rate controlled on cardizem. Coumdin for stroke prevention, INR goal of 2 to 3 #COPD--continue home inhalers #? HTN--resume Lisinopril, cardizem #JENNIFER--CPAP if uses one at home, will verify #HLD--statin # Seronegative RA--on Methotrexate, humira ?DVT prophylaxis:? Warfarin Quality Stroke Does the patient have a stroke diagnosis?: No VTE Prior VTE?: No VTE Risk Level:: Medical - moderate - high VTE Device Contraindication: Treatment Not Indicated VTE Drug Contraindication: N/A - Med Ordered
[2021-02-03] MEDS: Zinc Sulfate 220 MG CAPSULE PO (11:43)
[2021-02-03] MEDS: Famotidine 20 MG TABLET 40 MG PO ×2 (11:43→20:42)
[2021-02-03] MEDS: Ascorbic Acid 500 MG TABLET PO (11:43)
[2021-02-03] MEDS: dilTIAZem HCL CD 180 MG CAP.ER.24H PO (11:43)
--- NOTE | 2021-02-03 12:47 | MHC.CM.PN ---
pt in ed jonnie wan called and spoke withpts s/o pt is indepedent ,and sctive it is not expected that he will need servceis when dcd pt has own transport home pt is vacc had booster 12/31
--- NOTE | 2021-02-03 13:56 | PC.NURSE ---
pt down to 85% after eating lunch. Pt instructed to take deep breaths through nose and turn to his side. SpO2 improved to 88%. Respiratory and MD aware. will continue to monitor.
--- NOTE | 2021-02-03 14:11 | PC.NURSE ---
per MD pt on 15L NRB on top of the high flow NC. Pt at 90-92% on both. Respiratory at bedside to collect lab.
[2021-02-03 14:37] LABS: ABG Base Excess 1.3 mmol/L; ABG HCO3 25 mmol/L (22-26); ABG pCO2 37 mmHg (32-45); ABG pCO2 TC 36 mmHg (32-45); ABG pH 7.43 (7.35-7.45); ABG pH TC 7.44 (7.35-7.45); ABG pO2 57 mmHg (83-108); ABG pO2 TC 57 (83-108)
[2021-02-03] MEDS: Warfarin Sodium 5 MG TABLET PO (18:06)
[2021-02-03 21:20] LABS: ABG Refer to POC result
[2021-02-04] VITALS (12 sets, daily range): BP systolic 141–177; BP diastolic 73–83; PULSE 61–98; RESP 18–23; TEMP 36.2–36.8; O2SAT 88–96
--- NOTE | 2021-02-04 00:58 | PM.EVENT ---
Event Note Date of Service: 02/04/21 Event Note: Braydon/Pause: 3.74 secs; pt asymptomatic; Bedside pacers placed. Cardiology consult.
[2021-02-04] MEDS: 0.9 % Sodium Chloride Flush 3 ML SYRINGE IVFLUSH ×4 (01:43→20:27)
[2021-02-04] MEDS: Omeprazole 20 MG CAPSULE.DR PO (06:08)
--- NOTE | 2021-02-04 06:58 | HE.PHANOTE ---
Emi Ignacio RN to ask the family to bring in his non-form inhaler. Will follow up.
[2021-02-04 08:35] LABS: INTERNATIONAL NORM RATIO 4.1 (0.9-1.1); Prothrombin Time 48.2 SEC (9.9-13.0)
[2021-02-04] MEDS: Zinc Sulfate 220 MG CAPSULE PO (09:51)
[2021-02-04] MEDS: Famotidine 20 MG TABLET 40 MG PO ×2 (09:51→20:23)
[2021-02-04] MEDS: Pravastatin Sodium 20 MG TABLET PO (09:51)
[2021-02-04] MEDS: Ascorbic Acid 500 MG TABLET PO (09:51)
[2021-02-04] MEDS: Folic Acid 1 MG TABLET 3 MG PO (09:51)
[2021-02-04] MEDS: dexAMETHasone sod phosphate 4 MG/ML VIAL 6 MG IVPUSH (09:51)
[2021-02-04] MEDS: Gabapentin 300 MG CAPSULE PO (09:52)
--- NOTE | 2021-02-04 11:51 | HO.PM.IMPN ---
Subjective Subjective Date of Service: 02/04/21 Review of Systems Follow up covid 19 some work of breathing today, especially with exertion not sleeping well Denies chest pain, nausea, vomiting, diarrhea All other systems are reviewed and are negative Physical Exam Vital Signs: Vital Signs: Last Vital Signs Temp 98.2 F 02/04/21 11:11 Pulse 61 02/04/21 11:11 Resp 22 H 02/04/21 11:29 BP 158/81 H 02/04/21 11:11 Pulse Ox 91 L 02/04/21 11:11 BMI result Body Mass Index 32.5 Appearing in no acute distress lungs normal expansion heart regular rate rhythm, clear S1, S2 positive bowel sounds, abdomen is soft, nontender neuro patient is alert x3, no focal deficits Objective Data Active Medications Acetaminophen (Acetaminophen 325 Mg Tablet) 650 mg PO Q6H PRN PRN Reason: Pain, Mild (Pain Scale 1-3) Albuterol Sulfate (Albuterol Sulfate 90 Mcg 8 Gm Inhaler) 2 puff INHALE Q4H PRN PRN Reason: shortness of breath or wheezin Ascorbic Acid (Ascorbic Acid 500 Mg Tablet) 500 mg PO DAILY [facility] Last Admin: 02/04/21 09:51 Dose: 500 mg Documented by: MAK Bumetanide (Bumetanide 1 Mg Tablet) 2 mg PO DAILY PRN; Protocol PRN Reason: Dyspnea Dexamethasone Sodium Phosphate (Dexamethasone Sod Phosphate 4 Mg/Ml Vial) 6 mg IVPUSH DAILY [facility] Last Admin: 02/04/21 09:51 Dose: 6 mg Documented by: MAK Diltiazem HCl (Diltiazem Hcl Cd 180 Mg Cap.Er.24h) 180 mg PO DAILY [facility]; Protocol Last Admin: 02/03/21 11:43 Dose: 180 mg Documented by: RENAY Docusate Sodium (Docusate Sodium 100 Mg Capsule) 100 mg PO DAILY PRN PRN Reason: Constipation Famotidine (Famotidine 20 Mg Tablet) 40 mg PO BID [facility] Last Admin: 02/04/21 09:51 Dose: 40 mg Documented by: MAK Folic Acid (Folic Acid 1 Mg Tablet) 3 mg PO DAILY [facility] Last Admin: 02/04/21 09:51 Dose: 3 mg Documented by: MAK Gabapentin (Gabapentin 300 Mg Capsule) 300 mg PO DAILY [facility] Last Admin: 02/04/21 09:52 Dose: 300 mg Documented by: MAK Pt Own Med ( Umeclidinium- Vilanterol [Anoro Ellipta] 62.5-25 Mcg ) 1 each INHALE DAILY [facility] Last Admin: 02/04/21 09:52 Dose: 1 each Documented by: MAK Omeprazole (Omeprazole 20 Mg Capsule.Dr) 20 mg PO DAILY@0630 [facility] Last Admin: 02/04/21 06:08 Dose: 20 mg Documented by: ARLIN Ondansetron HCl (Ondansetron Hcl 4 Mg/2 Ml Vial) 4 mg IVPUSH Q8H PRN PRN Reason: Nausea and Vomiting Pravastatin Sodium (Pravastatin Sodium 20 Mg Tablet) 20 mg PO DAILY [facility] Last Admin: 02/04/21 09:51 Dose: 20 mg Documented by: MAK Sodium Chloride (0.9 % Sodium Chloride Flush 3 Ml Syringe) 3 ml IVFLUSH QSHIFT [facility] Last Admin: 02/04/21 09:52 Dose: 3 ml Documented by: MAK Warfarin Sodium (Warfarin Sodium 5 Mg Tablet) 5 mg PO DAILY@1800 [facility] Last Admin: 02/03/21 18:06 Dose: 5 mg Documented by: MAK Zinc Sulfate (Zinc Sulfate 220 Mg Capsule) 220 mg PO DAILY [facility] Last Admin: 02/04/21 09:51 Dose: 220 mg Documented by: MAK Labs CBC & Chem 7: 02/03/21 05:57 02/03/21 05:57 Labs: Laboratory Results - last 24 hr 02/03/21 02/04/21 14:30 08:13 PT 48.2 H INR 4.1 H O2 Saturation 86.0 ABG pH at Pt Temp 7.43 ABG pH (Temp Correct) 7.44 ABG pCO2 at Pt Temp 37 ABG pCO2 (Temp Corrct 36 ABG pO2 at Pt Temp 57 L ABG pO2 (Temp Correct 57 L ABG HCO3 25 ABG Base Excess (Actual) 1.3 Microbiology Microbiology Results: Microbiology 02/02/21 16:07 Blood Culture - Preliminary Blood - Venous No growth after 24 hours. 02/02/21 16:08 Blood Culture - Preliminary Blood - Venous No growth after 24 hours. Assessment and Plan (1) Supratherapeutic INR: Status: Acute (2) Acute respiratory failure with hypoxia: Status: Acute (3) Pneumonia due to 2019-nCoV: Status: Acute (4) Atrial fibrillation: Status: Acute Assessment and Plan: 65-year-old male with RA on humira, covid vaccinated x3,? COPD, AFib, HTN, among others who presents to the hospital with dyspnea with findings of acute hypoxic respiratory failure related to? COVID-19 pneumonia Supratherapeutic INR. 4.1 Hold warfarin for today Check PT INR daily Bradycardia/pause had 2 episodes of pauses overnight 3.2, 3.7 seconds discussed with cardiology, nothing to do at this point as it happened during the night and pt has afib coreg on hold for now Acute hypoxic respiratory failure with high O2 requirement. Covid 19 PNA-fully vaccinated, including booster on 12/31 -continue O2 by high flow on 100% -IV Dexamethasone 6 mg daily for 10 days, D2 -Pepcid, Zinc, Vit C Elevated troponin, without Delta -? most likely? type 2 secondary to hypoxia -? EKG shows new Q waves -? May need outpatient ischemic work up Chronic AFIB. rate controlled on warfarin COPD continue home inhalers HTN resume Lisinopril, cardizem JENNIFER CPAP if uses one at home, will verify HLD statin Seronegative RA on Methotrexate, humira DVT prophylaxis:? Warfarin Attending Dr. Smith Quality Stroke Does the patient have a stroke diagnosis?: No VTE Prior VTE?: No VTE Risk Level:: Medical - moderate - high VTE Device Contraindication: Treatment Not Indicated VTE Drug Contraindication: N/A - Med Ordered
[2021-02-05] VITALS (10 sets, daily range): BP systolic 147–195; BP diastolic 67–90; PULSE 66–88; RESP 18–28; TEMP 36.4–37.2; O2SAT 87–97
[2021-02-05] MEDS: Omeprazole 20 MG CAPSULE.DR PO (06:32)
[2021-02-05 07:40] LABS: INTERNATIONAL NORM RATIO 4.1 (0.9-1.1); Prothrombin Time 48.5 SEC (9.9-13.0)
[2021-02-05] MEDS: dexAMETHasone sod phosphate 4 MG/ML VIAL 6 MG IVPUSH (08:52)
[2021-02-05] MEDS: Zinc Sulfate 220 MG CAPSULE PO (08:53)
[2021-02-05] MEDS: Gabapentin 300 MG CAPSULE PO (08:53)
[2021-02-05] MEDS: Ascorbic Acid 500 MG TABLET PO (08:53)
[2021-02-05] MEDS: Pravastatin Sodium 20 MG TABLET PO (08:53)
[2021-02-05] MEDS: Folic Acid 1 MG TABLET 3 MG PO (08:53)
[2021-02-05] MEDS: Famotidine 20 MG TABLET 40 MG PO ×3 (08:54→21:41)
[2021-02-05] MEDS: 0.9 % Sodium Chloride Flush 3 ML SYRINGE IVFLUSH ×2 (08:54→21:41)
[2021-02-05 09:19] LABS: Hematocrit 40.6 % (42.0-52.0); Hemoglobin 13.8 g/dl (14.0-18.0); Mean Corpuscular Hemoglobin 34.6 pg (27.0-33.0); Mean Corpuscular Volume 101.8 fL (80.0-98.0); Mean Platelet Volume 10.3 fL (9.4-12.4); NRBC Pct Auto 0.1 /100WBC (0.0-0.2); Platelet Count 256 X10*3/uL (160-400); Red Blood Count 3.99 X10*6/uL (4.60-5.80); Red Cell Distribution Width 14.6 % (11.0-16.0); White Blood Count 16.4 X10*3/uL (4.8-10.8)
[2021-02-05 09:38] LABS: Alanine Aminotransferase 57 U/L (0-40); Albumin Level 3.5 g/dL (3.5-5.0); Alkaline Phosphatase 91 U/L (39-117); Anion Gap 15 (12-20); Aspartate Amino Transferase 61 U/L (5-37); Bilirubin Total 0.6 mg/dL (0.0-1.0); Blood Urea Nitrogen 16 mg/dL (9-16); C Reactive Protein 4.35 mg/dL (< or = 0.50); Calcium 8.4 mg/dL (8.4-10.2); Carbon Dioxide 23 mmol/L (22-29); Chloride 111 mmol/L (96-108); Creatinine Clr Calc Pharmacy 143.6; Estimated Glomerular Filt Rate > 60; Glucose Random 133 mg/dL (60-115); Potassium 4.2 mmol/L (3.3-5.1); Sodium 145 mmol/L (135-145); Total Protein 5.6 g/dL (6.5-8.0)
--- NOTE | 2021-02-05 11:09 | P.PNIM_ITS ---
Subjective Subjective Date of Service: 02/08/21 Review of Systems Follow up [place] very agitated today worried about his INR and coumadin wants to get up and walk around however he is hypoxic Denies chest pain, nausea, vomiting, diarrhea All other systems are reviewed and are negative Physical Exam Vital Signs: Vital Signs: Last Vital Signs Temp 98.5 F 02/05/21 10:57 Pulse 74 02/05/21 10:57 Resp 24 H 02/05/21 10:57 BP 195/88 H 02/05/21 10:57 Pulse Ox 90 L 02/05/21 10:57 BMI result Body Mass Index 32.5 agitated lungs normal expansion heart regular rate rhythm, clear S1, S2 positive bowel sounds, abdomen is soft, nontender neuro patient is alert x3, no focal deficits Objective Data Active Medications Acetaminophen (Acetaminophen 325 Mg Tablet) 650 mg PO Q6H PRN PRN Reason: Pain, Mild (Pain Scale 1-3) Albuterol Sulfate (Albuterol Sulfate 90 Mcg 8 Gm Inhaler) 2 puff INHALE Q4H PRN PRN Reason: shortness of breath or wheezin Ascorbic Acid (Ascorbic Acid 500 Mg Tablet) 500 mg PO DAILY [facility] Last Admin: 02/05/21 08:53 Dose: 500 mg Documented by: FEROZ Bumetanide (Bumetanide 1 Mg Tablet) 2 mg PO DAILY PRN; Protocol PRN Reason: Dyspnea Dexamethasone Sodium Phosphate (Dexamethasone Sod Phosphate 4 Mg/Ml Vial) 6 mg IVPUSH DAILY [facility] Last Admin: 02/05/21 08:52 Dose: 6 mg Documented by: FEROZ Diltiazem HCl (Diltiazem Hcl Cd 180 Mg Cap.Er.24h) 180 mg PO DAILY [facility]; Protocol Last Admin: 02/03/21 11:43 Dose: 180 mg Documented by: RENAY Docusate Sodium (Docusate Sodium 100 Mg Capsule) 100 mg PO DAILY PRN PRN Reason: Constipation Famotidine (Famotidine 20 Mg Tablet) 40 mg PO BID [facility] Last Admin: 02/05/21 08:54 Dose: 40 mg Documented by: FEROZ Folic Acid (Folic Acid 1 Mg Tablet) 3 mg PO DAILY [facility] Last Admin: 02/05/21 08:53 Dose: 3 mg Documented by: FEROZ Gabapentin (Gabapentin 300 Mg Capsule) 300 mg PO DAILY [facility] Last Admin: 02/05/21 08:53 Dose: 300 mg Documented by: FEROZ Morphine Sulfate (Morphine Sulfate 2 Mg/Ml Cartridge) 2 mg IVPUSH Q4H PRN; P rotocol PRN Reason: tachypnea Pt Own Med ( Umeclidinium- Vilanterol [Anoro Ellipta] 62.5-25 Mcg ) 1 each INHALE DAILY [facility] Last Admin: 02/05/21 08:54 Dose: 1 each Documented by: FEROZ Omeprazole (Omeprazole 20 Mg Capsule.Dr) 20 mg PO DAILY@0630 [facility] Last Admin: 02/05/21 06:32 Dose: 20 mg Documented by: KHLOE Ondansetron HCl (Ondansetron Hcl 4 Mg/2 Ml Vial) 4 mg IVPUSH Q8H PRN PRN Reason: Nausea and Vomiting Pravastatin Sodium (Pravastatin Sodium 20 Mg Tablet) 20 mg PO DAILY [facility] Last Admin: 02/05/21 08:53 Dose: 20 mg Documented by: FEROZ Sodium Chloride (0.9 % Sodium Chloride Flush 3 Ml Syringe) 3 ml IVFLUSH QSHIFT [facility] Last Admin: 02/05/21 08:54 Dose: 3 ml Documented by: FEROZ Warfarin Sodium (Warfarin Sodium 5 Mg Tablet) 5 mg PO DAILY@1800 [facility] Last Admin: 02/03/21 18:06 Dose: 5 mg Documented by: MAK Zinc Sulfate (Zinc Sulfate 220 Mg Capsule) 220 mg PO DAILY [facility] Last Admin: 02/05/21 08:53 Dose: 220 mg Documented by: FEROZ Labs CBC & Chem 7: 02/07/21 06:03 02/08/21 06:15 Labs: Laboratory Results - last 24 hr 02/05/21 02/05/21 02/05/21 07:05 07:05 07:05 MCV 101.8 H MCH 34.6 H MCHC 34.0 RDW 14.6 Plt Count 256 D MPV 10.3 Absolute Nucleated RBC 0.020 H Nucleated RBC % (auto) 0.1 PT 48.5 H INR 4.1 H Anion Gap 15 Estim Creat Clear Calc 143.6 Estimated GFR > 60 Random Glucose 133 H Calcium 8.4 Total Bilirubin 0.6 AST 61 H ALT 57 H Alkaline Phosphatase 91 D C-Reactive Protein 4.35 H Total Protein 5.6 L Albumin 3.5 Microbiology Microbiology Results: Microbiology 02/02/21 16:08 Blood Culture - Preliminary Blood - Venous No growth after 48 hours. 02/02/21 16:07 Blood Culture - Preliminary Blood - Venous No growth after 48 hours. Assessment and Plan (1) Supratherapeutic INR: Status: Acute (2) Acute respiratory failure with hypoxia: Status: Acute (3) Pneumonia due to 2019-nCoV: Status: Acute Assessment and Plan: 65-year-old male with RA on humira, covid vaccinated x3,? COPD, AFib, HTN, among others who presents to the hospital with dyspnea with findings of acute hypoxic respiratory failure related to? COVID-19 pneumoniaAcut Supratherapeutic INR.? 4.1 Hold warfarin for today Check PT INR daily Bradycardia/pause had 2 episodes of pauses overnight 3.2, 3.7 seconds discussed with cardiology, nothing to do at this point as it happened during the night and pt has afib coreg on hold for now Acute hypoxic respiratory failure with high O2 requirement. Covid 19 PNA-fully vaccinated, including booster on 12/31 Immunosuppressed due to rheumatoid arthritis -continue O2 by high flow on 100% -IV Dexamethasone 6 mg daily for 10 days, D2 -Pepcid, Zinc, Vit C morphine for increased work of breathing CXR showing worsening bilateral pneumonia, doxycycline added Leukocytosis ? superimposed pneumonia doxycycline added Elevated troponin, without Delta most likely?type 2 secondary to hypoxia EKG shows new Q waves May need outpatient ischemic work up Chronic AFIB. rate controlled on warfarin COPD continue home inhalers HTN resume Lisinopril, cardizem JENNIFER CPAP if uses one at home, will verify HLD statin Seronegative RA on Methotrexate, humira DVT prophylaxis:? Warfarin Attending Dr. Smith Quality Stroke Does the patient have a stroke diagnosis?: No VTE Prior VTE?: No VTE Risk Level:: Medical - moderate - high VTE Device Contraindication: Treatment Not Indicated VTE Drug Contraindication: N/A - Med Ordered
[2021-02-05] MEDS: Doxycycline Hyclate 100 MG in 0.9 % Sodium Chloride 250 ML 166.67 MG IV ×2 (12:03→21:37)
[2021-02-05] MEDS: Morphine Sulfate 2 MG/ML CARTRIDGE IVPUSH (12:03)
[2021-02-05 13:29] LABS: ABG Refer to POC result
[2021-02-05 13:34] LABS: ABG Base Excess -0.3 mmol/L; ABG HCO3 22 mmol/L (22-26); ABG pCO2 30 mmHg (32-45); ABG pCO2 TC 31 mmHg (32-45); ABG pH 7.47 (7.35-7.45); ABG pH TC 7.46 (7.35-7.45); ABG pO2 64 mmHg (83-108); ABG pO2 TC 65 (83-108)
[2021-02-06] VITALS (12 sets, daily range): BP systolic 152–188; BP diastolic 66–93; PULSE 64–78; RESP 18–22; TEMP 36.1–36.8; O2SAT 90–95
[2021-02-06] MEDS: Morphine Sulfate 2 MG/ML CARTRIDGE IVPUSH ×3 (00:44→16:36)
[2021-02-06] MEDS: HYDROmorphone HCl 0.5 MG/0.5 ML SYRINGE IVPUSH (03:58)
[2021-02-06] MEDS: Omeprazole 20 MG CAPSULE.DR PO (06:46)
[2021-02-06 07:51] LABS: Hematocrit 42.2 % (42.0-52.0); Mean Corpuscular HGB Conc 33.2 g/dl (31.0-36.0); Mean Corpuscular Hemoglobin 33.7 pg (27.0-33.0); Mean Corpuscular Volume 101.7 fL (80.0-98.0); NRBC Pct Auto 0.1 /100WBC (0.0-0.2); Platelet Count 134 X10*3/uL (160-400); Red Blood Count 4.15 X10*6/uL (4.60-5.80); Red Cell Distribution Width 14.6 % (11.0-16.0); White Blood Count 15.1 X10*3/uL (4.8-10.8)
[2021-02-06 08:27] LABS: Anion Gap 13 (12-20); Blood Urea Nitrogen 19 mg/dL (9-16); Calcium 8.6 mg/dL (8.4-10.2); Carbon Dioxide 25 mmol/L (22-29); Chloride 109 mmol/L (96-108); Creatinine Clr Calc Pharmacy 143.6; Estimated Glomerular Filt Rate > 60; Glucose Random 114 mg/dL (60-115); Sodium 143 mmol/L (135-145)
[2021-02-06] MEDS: Gabapentin 300 MG CAPSULE PO (09:16)
[2021-02-06] MEDS: Zinc Sulfate 220 MG CAPSULE PO (09:16)
[2021-02-06] MEDS: Folic Acid 1 MG TABLET 3 MG PO (09:16)
[2021-02-06] MEDS: 0.9 % Sodium Chloride Flush 3 ML SYRINGE IVFLUSH ×3 (09:17→20:51)
[2021-02-06] MEDS: Pravastatin Sodium 20 MG TABLET PO (09:18)
[2021-02-06] MEDS: Ascorbic Acid 500 MG TABLET PO (09:18)
[2021-02-06] MEDS: dexAMETHasone sod phosphate 4 MG/ML VIAL 6 MG IVPUSH (09:18)
[2021-02-06 09:31] LABS: Prothrombin Time 70.6 SEC (9.9-13.0)
[2021-02-06] MEDS: Doxycycline Hyclate 100 MG in 0.9 % Sodium Chloride 250 ML 166.67 MG IV (10:58)
--- NOTE | 2021-02-06 16:25 | HO.PM.IMPN ---
Subjective Subjective Date of Service: 02/06/21 Interval History: continues on high-flow O2 with shortness of breath with minimal exertion. No acute Review of Systems denies chest pain Admits shortness of breath with minimal exertion Denies nausea vomiting diarrhea Physical Exam Vital Signs: Vital Signs: Last Vital Signs Temp 96.9 F 02/06/21 15:09 Pulse 66 02/06/21 15:09 Resp 20 02/06/21 15:09 BP 153/79 H 02/06/21 15:09 Pulse Ox 92 02/06/21 15:09 BMI result Body Mass Index 32.5 Const: Other: awake alert; able to speak in short sentences Resp: Other: diminished throughout with diffuse expiratory wheezes at bases. Bilateral basilar crackl Cardio: Other: no S4; positive S1-S2; no S3 murmurs rubs gallops Extrem: Other: no edema bilaterally Objective Data Active Medications Acetaminophen (Acetaminophen 325 Mg Tablet) 650 mg PO Q6H PRN PRN Reason: Pain, Mild (Pain Scale 1-3) Albuterol Sulfate (Albuterol Sulfate 90 Mcg 8 Gm Inhaler) 2 puff INHALE Q4H PRN PRN Reason: shortness of breath or wheezin Ascorbic Acid (Ascorbic Acid 500 Mg Tablet) 500 mg PO DAILY [facility] Last Admin: 02/06/21 09:18 Dose: 500 mg Documented by: VIOLETTE Bumetanide (Bumetanide 1 Mg Tablet) 2 mg PO DAILY PRN; Protocol PRN Reason: Dyspnea Dexamethasone Sodium Phosphate (Dexamethasone Sod Phosphate 4 Mg/Ml Vial) 6 mg IVPUSH DAILY [facility] Last Admin: 02/06/21 09:18 Dose: 6 mg Documented by: VIOLETTE Diltiazem HCl (Diltiazem Hcl Cd 180 Mg Cap.Er.24h) 180 mg PO DAILY [facility]; Protocol Last Admin: 02/03/21 11:43 Dose: 180 mg Documented by: RENAY Docusate Sodium (Docusate Sodium 100 Mg Capsule) 100 mg PO DAILY PRN PRN Reason: Constipation Famotidine (Famotidine 20 Mg Tablet) 40 mg PO BID [facility] Last Admin: 02/05/21 21:41 Dose: 40 mg Documented by: DEUCE Folic Acid (Folic Acid 1 Mg Tablet) 3 mg PO DAILY [facility] Last Admin: 02/06/21 09:16 Dose: 3 mg Documented by: VIOLETTE Gabapentin (Gabapentin 300 Mg Capsule) 300 mg PO DAILY [facility] Last Admin: 02/06/21 09:16 Dose: 300 mg Documented by: VIOLETTE Doxycycline Hyclate 100 mg/ (Sodium Chloride) 250 mls @ 166.67 mls/hr IV Q12H [facility] Last Infusion: 02/06/21 12:54 Dose: 0 mls/hr Documented by: VIOLETTE Morphine Sulfate (Morphine Sulfate 2 Mg/Ml Cartridge) 2 mg IVPUSH Q4H PRN; Protocol PRN Reason: tachypnea Last Admin: 02/06/21 10:58 Dose: 2 mg Documented by: VIOLETTE Pt Own Med ( Umeclidinium- Vilanterol [Anoro Ellipta] 62.5-25 Mcg ) 1 each INHALE DAILY [facility] Last Admin: 02/06/21 09:25 Dose: 1 each Documented by: VIOLETTE Omeprazole (Omeprazole 20 Mg Capsule.) 20 mg PO DAILY@0630 [facility] Last Admin: 02/06/21 06:46 Dose: 20 mg Documented by: DEUCE Ondansetron HCl (Ondansetron Hcl 4 Mg/2 Ml Vial) 4 mg IVPUSH Q8H PRN PRN Reason: Nausea and Vomiting Pravastatin Sodium (Pravastatin Sodium 20 Mg Tablet) 20 mg PO DAILY [facility] Last Admin: 02/06/21 09:18 Dose: 20 mg Documented by: VIOLETTE Sodium Chloride (0.9 % Sodium Chloride Flush 3 Ml Syringe) 3 ml IVFLUSH QSHIFT [facility] Last Admin: 02/06/21 09:17 Dose: 3 ml Documented by: VIOLETTE Warfarin Sodium (Warfarin Sodium 5 Mg Tablet) 5 mg PO DAILY@1800 [facility] Last Admin: 02/03/21 18:06 Dose: 5 mg Documented by: MAK Zinc Sulfate (Zinc Sulfate 220 Mg Capsule) 220 mg PO DAILY [facility] Last Admin: 02/06/21 09:16 Dose: 220 mg Documented by: VIOLETTE Labs CBC & Chem 7: 02/06/21 07:05 02/06/21 07:05 Labs: Laboratory Results - last 24 hr 02/06/21 02/06/21 02/06/21 07:05 07:05 09:09 MCV 101.7 H MCH 33.7 H MCHC 33.2 RDW 14.6 Plt Count 134 L D MPV 11.0 Absolute Nucleated RBC 0.020 H Nucleated RBC % (auto) 0.1 PT 70.6 H INR 6.0 H* Anion Gap 13 Estim Creat Clear Calc 143.6 Estimated GFR > 60 Random Glucose 114 Calcium 8.6 Assessment and Plan (1) Pneumonia due to 2019-nCoV: Status: Acute (2) Supratherapeutic INR: Status: Acute (3) Atrial fibrillation: Status: Acute Assessment and Plan: 65-year-old male with RA on humira, covid vaccinated x3,? COPD, AFib, HTN, among others who presents to the hospital with dyspnea with findings of acute hypoxic respiratory failure related to? COVID-19 pneumonia; fully vaccinated 1.Covid-19 Stable on high-flow oxygen; continue to attempt to wean as possible Continue IV dexamethasone/Pepcid / morphine as needed for respiratory distress Leukocytosis likely related to steroids however will continue doxycycline and check white blood cell count in morning 2. Hyperprothrombinemia Likely multifactorial; Coumadin on hold. No risk factors/signs of bleeding. no indication for vitamin K at this time Check PT INR daily 3.AFIB.(chronic) Rate controlled with current therapies Continue telemetry 4.HTN Acceptable control on current therapies. Adjust as indicated 5.Seronegative RA Methotrexate, humira on hold. DVT prophylaxis:? Warfarin Quality Stroke Does the patient have a stroke diagnosis?: No VTE Prior VTE?: No VTE Risk Level:: Medical - moderate - high VTE Device Contraindication: Treatment Not Indicated VTE Drug Contraindication: N/A - Med Ordered
[2021-02-06] MEDS: Famotidine 20 MG TABLET 40 MG PO (20:50)
[2021-02-06] MEDS: hydrOXYzine HCL 25 MG TABLET PO (20:50)
[2021-02-06] MEDS: Melatonin 3 MG TABLET 6 MG PO (20:50)
[2021-02-07] VITALS (14 sets, daily range): BP systolic 123–174; BP diastolic 68–93; PULSE 64–91; RESP 17–26; TEMP 36.3–37.7; O2SAT 88–96
[2021-02-07] MEDS: Doxycycline Hyclate 100 MG in 0.9 % Sodium Chloride 250 ML 166.67 MG IV ×3 (00:01→23:44)
[2021-02-07] MEDS: Morphine Sulfate 2 MG/ML CARTRIDGE IVPUSH ×2 (00:04→12:14)
[2021-02-07] MEDS: Omeprazole 20 MG CAPSULE.DR PO (05:00)
[2021-02-07 06:28] LABS: Basophils Percent Auto 0.1 % (0-2); Eosinophils Percent Auto 0.1 % (0-4); PLT CLUMP 1; Red Cell Distribution Width 14.6 % (11.0-16.0); SCAN SMEAR FLAG 1
[2021-02-07 06:30] LABS: Hematocrit 40.9 % (42.0-52.0); Hemoglobin 13.8 g/dl (14.0-18.0); Imm Gran Abs Auto 0.45 X10*3/uL (0.00-0.03); Lymphocytes Absolute Auto 0.8 X10*3/uL (1.2-4.9); Lymphocytes Percent Auto 5.4 % (20-40); MANUAL DIFF FLAG SCAN; Mean Corpuscular HGB Conc 33.7 g/dl (31.0-36.0); Mean Corpuscular Hemoglobin 34.7 pg (27.0-33.0); Mean Corpuscular Volume 102.8 fL (80.0-98.0); Mean Platelet Volume 11.7 fL (9.4-12.4); Monocytes Absolute Auto 0.5 X10*3/uL (0.1-1.2); Monocytes Percent Auto 3.1 % (2-11); Neutrophils Absolute Auto 13.2 x10*3/uL (2.0-8.3); Neutrophils Percent Auto 88.3 % (45-73); Red Blood Count 3.98 X10*6/uL (4.60-5.80)
[2021-02-07 06:35] LABS: Platelet Count 104 X10*3/uL (160-400); White Blood Count 14.9 X10*3/uL (4.8-10.8)
[2021-02-07 06:50] LABS: INTERNATIONAL NORM RATIO 4.3 (0.9-1.1); Prothrombin Time 50.5 SEC (9.9-13.0)
[2021-02-07 07:03] LABS: SLIDE REVIEW VERIFIED
[2021-02-07 07:22] LABS: Alanine Aminotransferase 37 U/L (0-40); Albumin Level 3.3 g/dL (3.5-5.0); Alkaline Phosphatase 154 U/L (39-117); Anion Gap 14 (12-20); Aspartate Amino Transferase 31 U/L (5-37); Bilirubin Total 1.5 mg/dL (0.0-1.0); Blood Urea Nitrogen 21 mg/dL (9-16); Calcium 8.7 mg/dL (8.4-10.2); Carbon Dioxide 23 mmol/L (22-29); Chloride 110 mmol/L (96-108); Creatinine Clr Calc Pharmacy 139.6; Estimated Glomerular Filt Rate > 60; Glucose Fasting 112 mg/dL (60-99); Potassium 4.2 mmol/L (3.3-5.1); Sodium 143 mmol/L (135-145); Total Protein 5.6 g/dL (6.5-8.0)
[2021-02-07] MEDS: Zinc Sulfate 220 MG CAPSULE PO (09:25)
[2021-02-07] MEDS: dexAMETHasone sod phosphate 4 MG/ML VIAL 6 MG IVPUSH (09:26)
[2021-02-07] MEDS: Pravastatin Sodium 20 MG TABLET PO (09:26)
[2021-02-07] MEDS: Folic Acid 1 MG TABLET 3 MG PO (09:26)
[2021-02-07] MEDS: hydrOXYzine HCL 25 MG TABLET PO ×2 (09:26→20:51)
[2021-02-07] MEDS: Famotidine 20 MG TABLET 40 MG PO ×2 (09:26→20:51)
[2021-02-07] MEDS: Ascorbic Acid 500 MG TABLET PO (09:26)
[2021-02-07] MEDS: Gabapentin 300 MG CAPSULE PO (09:27)
[2021-02-07] MEDS: 0.9 % Sodium Chloride Flush 3 ML SYRINGE IVFLUSH ×2 (09:27→20:51)
--- NOTE | 2021-02-07 10:01 | MHC.CM.PN ---
Patient has not yet been medically cleared for dc (IV Decadron, IV Doxycycline, IV Morphine today, high Flow O2). Home is the goal for dc and CM will follow for possible need to adjust the dc plan.
--- NOTE | 2021-02-07 16:01 | HO.PM.IMPN ---
Subjective Subjective Date of Service: 02/07/21 Interval History: slowly improving; up in chair today Review of Systems denies worsening shortness of breath Denies chest pain Denies nausea vomiting diarrhea Physical Exam Vital Signs: Vital Signs: Last Vital Signs Temp 97.3 F 02/07/21 15:20 Pulse 80 02/07/21 15:20 Resp 20 02/07/21 15:33 BP 149/72 H 02/07/21 15:20 Pulse Ox 96 02/07/21 15:20 BMI result Body Mass Index 32.5 Const: Other: awake alert; able to speak in full sentences; up in chair Resp: Other: diminished throughout with diffuse expiratory wheezes at bases. Bilateral basilar crackl Cardio: Other: no S4; positive S1-S2; no S3 murmurs rubs gallops Extrem: Other: no edema bilaterally Objective Data Active Medications Acetaminophen (Acetaminophen 325 Mg Tablet) 650 mg PO Q6H PRN PRN Reason: Pain, Mild (Pain Scale 1-3) Albuterol Sulfate (Albuterol Sulfate 90 Mcg 8 Gm Inhaler) 2 puff INHALE Q4H PRN PRN Reason: shortness of breath or wheezin Ascorbic Acid (Ascorbic Acid 500 Mg Tablet) 500 mg PO DAILY [facility] Last Admin: 02/07/21 09:26 Dose: 500 mg Documented by: VIOLETTE Bumetanide (Bumetanide 1 Mg Tablet) 2 mg PO DAILY PRN; Protocol PRN Reason: Dyspnea Dexamethasone Sodium Phosphate (Dexamethasone Sod Phosphate 4 Mg/Ml Vial) 6 mg IVPUSH DAILY [facility] Last Admin: 02/07/21 09:26 Dose: 6 mg Documented by: VIOLETTE Diltiazem HCl (Diltiazem Hcl Cd 180 Mg Cap.Er.24h) 180 mg PO DAILY [facility]; Protocol Last Admin: 02/03/21 11:43 Dose: 180 mg Documented by: RENAY Docusate Sodium (Docusate Sodium 100 Mg Capsule) 100 mg PO DAILY PRN PRN Reason: Constipation Famotidine (Famotidine 20 Mg Tablet) 40 mg PO BID [facility] Last Admin: 02/07/21 09:26 Dose: 40 mg Documented by: VIOLETTE Folic Acid (Folic Acid 1 Mg Tablet) 3 mg PO DAILY [facility] Last Admin: 02/07/21 09:26 Dose: 3 mg Documented by: VIOLETTE Gabapentin (Gabapentin 300 Mg Capsule) 300 mg PO DAILY [facility] Last Admin: 02/07/21 09:27 Dose: 300 mg Documented by: VIOLETTE Hydroxyzine HCl (Hydroxyzine Hcl 25 Mg Tablet) 25 mg PO Q8H PRN PRN Reason: Anxiety Last Admin: 02/07/21 09:26 Dose: 25 mg Documented by: VIOLETTE Doxycycline Hyclate 100 mg/ (Sodium Chloride) 250 mls @ 166.67 mls/hr IV Q12H [facility] Last Infusion: 02/07/21 14:09 Dose: 0 mls/hr Documented by: VIOLETTE Melatonin (Melatonin 3 Mg Tablet) 6 mg PO BEDTIME PRN PRN Reason: Insomnia Last Admin: 02/06/21 20:50 Dose: 6 mg Documented by: DEUCE Morphine Sulfate (Morphine Sulfate 2 Mg/Ml Cartridge) 2 mg IVPUSH Q4H PRN; Protocol PRN Reason: tachypnea Last Admin: 02/07/21 12:14 Dose: 2 mg Documented by: VIOLETTE Pt Own Med ( Umeclidinium- Vilanterol [Anoro Ellipta] 62.5-25 Mcg ) 1 each INHALE DAILY [facility] Last Admin: 02/07/21 09:32 Dose: 1 each Documented by: VIOLETTE Omeprazole (Omeprazole 20 Mg Capsule.) 20 mg PO DAILY@0630 [facility] Last Admin: 02/07/21 05:00 Dose: 20 mg Documented by: DEUCE Ondansetron HCl (Ondansetron Hcl 4 Mg/2 Ml Vial) 4 mg IVPUSH Q8H PRN PRN Reason: Nausea and Vomiting Pravastatin Sodium (Pravastatin Sodium 20 Mg Tablet) 20 mg PO DAILY [facility] Last Admin: 02/07/21 09:26 Dose: 20 mg Documented by: VIOLETTE Sodium Chloride (0.9 % Sodium Chloride Flush 3 Ml Syringe) 3 ml IVFLUSH QSHIFT [facility] Last Admin: 02/07/21 09:27 Dose: 3 ml Documented by: VIOLETTE Warfarin Sodium (Warfarin Sodium 5 Mg Tablet) 5 mg PO DAILY@1800 [facility] Last Admin: 02/03/21 18:06 Dose: 5 mg Documented by: MAK Zinc Sulfate (Zinc Sulfate 220 Mg Capsule) 220 mg PO DAILY [facility] Last Admin: 02/07/21 09:25 Dose: 220 mg Documented by: VIOLETTE Labs CBC & Chem 7: 02/07/21 06:03 02/07/21 06:03 Labs: Laboratory Results - last 24 hr 02/02/21 02/03/21 02/05/21 16:08 05:57 07:05 WBC 7.0 7.5 16.4 H MCV MCH MCHC RDW Plt Count MPV Immature Gran % (Auto) Neut % (Auto) Lymph % (Auto) [place] % (Auto) Eos % (Auto) Baso % (Auto) Lymph # (Auto) [place] # (Auto) Eos # (Auto) Baso # (Auto) Abs Immat Gran (auto) Absolute Neuts (auto) Absolute Nucleated RBC Nucleated RBC % (auto) Smear Tech's Comments PT INR Anion Gap Estim Creat Clear Calc Estimated GFR Fasting Glucose Calcium Total Bilirubin AST ALT Alkaline Phosphatase Total Protein Albumin 02/06/21 02/07/21 02/07/21 07:05 06:03 06:03 WBC 15.1 H 14.9 H MCV 102.8 H MCH 34.7 H MCHC 33.7 RDW 14.6 Plt Count 104 L MPV 11.7 Immature Gran % (Auto) 3.0 H Neut % (Auto) 88.3 H Lymph % (Auto) 5.4 L [place] % (Auto) 3.1 Eos % (Auto) 0.1 Baso % (Auto) 0.1 Lymph # (Auto) 0.8 L [place] # (Auto) 0.5 Eos # (Auto) 0.0 Baso # (Auto) 0.0 Abs Immat Gran (auto) 0.45 H Absolute Neuts (auto) 13.2 H Absolute Nucleated RBC 0.000 Nucleated RBC % (auto) 0.0 Smear Tech's Comments VERIFIED PT 50.5 H INR 4.3 H Anion Gap Estim Creat Clear Calc Estimated GFR Fasting Glucose Calcium Total Bilirubin AST ALT Alkaline Phosphatase Total Protein Albumin 02/07/21 06:03 WBC MCV MCH MCHC RDW Plt Count MPV Immature Gran % (Auto) Neut % (Auto) Lymph % (Auto) [place] % (Auto) Eos % (Auto) Baso % (Auto) Lymph # (Auto) [place] # (Auto) Eos # (Auto) Baso # (Auto) Abs Immat Gran (auto) Absolute Neuts (auto) Absolute Nucleated RBC Nucleated RBC % (auto) Smear Tech's Comments PT INR Anion Gap 14 Estim Creat Clear Calc 139.6 Estimated GFR > 60 Fasting Glucose 112 H Calcium 8.7 Total Bilirubin 1.5 H AST 31 D ALT 37 Alkaline Phosphatase 154 H D Total Protein 5.6 L Albumin 3.3 L Assessment and Plan (1) Supratherapeutic INR: Status: Acute (2) Pneumonia due to 2019-nCoV: Status: Acute Assessment and Plan: 65-year-old male with RA on humira, covid vaccinated x3,? COPD, AFib, HTN, among others who presents to the hospital with dyspnea with findings of acute hypoxic respiratory failure related to? COVID-19 pneumonia; fully vaccinated; slowly improving 1.Covid-19 Improving on high-flow oxygen; continue to attempt to wean as possible Continue IV dexamethasone/Pepcid / morphine as needed for respiratory distress Leukocytosis improving 2. Hyperprothrombinemia Likely multifactorial; Coumadin on hold. No risk factors/signs of bleeding. no indication for vitamin K at this time; slowly trending down Check PT INR daily 3.AFIB.(chronic) Rate controlled with current therapies Continue telemetry 4.HTN Acceptable control on current therapies. Adjust as indicated 5.Seronegative RA Methotrexate, humira on hold. DVT prophylaxis:? Warfarin Quality Stroke Does the patient have a stroke diagnosis?: No VTE Prior VTE?: No VTE Risk Level:: Medical - moderate - high VTE Device Contraindication: Treatment Not Indicated VTE Drug Contraindication: N/A - Med Ordered
[2021-02-07] MEDS: Melatonin 3 MG TABLET 6 MG PO (20:50)
[2021-02-08] VITALS (15 sets, daily range): BP systolic 117–175; BP diastolic 68–100; PULSE 56–101; RESP 20–24; TEMP 36.1–36.8; O2SAT 90–100
[2021-02-08] MEDS: Omeprazole 20 MG CAPSULE.DR PO (05:51)
[2021-02-08] MEDS: Morphine Sulfate 2 MG/ML CARTRIDGE IVPUSH (05:57)
[2021-02-08 07:06] LABS: Alanine Aminotransferase 35 U/L (0-40); Albumin Level 3.2 g/dL (3.5-5.0); Alkaline Phosphatase 164 U/L (39-117); Anion Gap 12 (12-20); Aspartate Amino Transferase 35 U/L (5-37); Blood Urea Nitrogen 18 mg/dL (9-16); Calcium 8.5 mg/dL (8.4-10.2); Carbon Dioxide 26 mmol/L (22-29); Chloride 109 mmol/L (96-108); Creatinine Clr Calc Pharmacy 154.4; Estimated Glomerular Filt Rate > 60; Glucose Fasting 109 mg/dL (60-99); Potassium 4.2 mmol/L (3.3-5.1); Sodium 143 mmol/L (135-145); Total Protein 5.6 g/dL (6.5-8.0)
[2021-02-08 08:41] LABS: INTERNATIONAL NORM RATIO 3.2 (0.9-1.1); Prothrombin Time 36.9 SEC (9.9-13.0)
[2021-02-08] MEDS: Folic Acid 1 MG TABLET 3 MG PO (11:57)
[2021-02-08] MEDS: Pravastatin Sodium 20 MG TABLET PO (11:58)
[2021-02-08] MEDS: Zinc Sulfate 220 MG CAPSULE PO (11:58)
[2021-02-08] MEDS: Gabapentin 300 MG CAPSULE PO (11:59)
[2021-02-08] MEDS: Ascorbic Acid 500 MG TABLET PO (11:59)
[2021-02-08] MEDS: Famotidine 20 MG TABLET 40 MG PO ×2 (11:59→21:11)
[2021-02-08] MEDS: dexAMETHasone sod phosphate 4 MG/ML VIAL 6 MG IVPUSH (12:00)
[2021-02-08] MEDS: Doxycycline Hyclate 100 MG in 0.9 % Sodium Chloride 250 ML 166.67 MG IV ×2 (12:00→23:21)
[2021-02-08] MEDS: 0.9 % Sodium Chloride Flush 3 ML SYRINGE IVFLUSH ×3 (12:00→21:11)
--- NOTE | 2021-02-08 13:05 | HO.PM.IMPN ---
Subjective Subjective Date of Service: 02/08/21 Interval History: continues to improve. Sats stable on high-flow Review of Systems denies chest pain Shortness of breath improved; short of breath with minimal exertion but able to speak in full sentences No nausea vomiting diarrhea Physical Exam Vital Signs: Vital Signs: Last Vital Signs Temp 98.3 F 02/08/21 11:07 Pulse 82 02/08/21 11:07 Resp 20 02/08/21 12:27 BP 139/69 02/08/21 11:07 Pulse Ox 92 02/08/21 11:07 BMI result Body Mass Index 32.5 Const: Other: awake alert; able to speak in full sentences; up in chair Resp: Other: diminished throughout with diffuse expiratory wheezes at bases. Bilateral basilar crackl Cardio: Other: no S4; positive S1-S2; no S3 murmurs rubs gallops Extrem: Other: no edema bilaterally Objective Data Active Medications Acetaminophen (Acetaminophen 325 Mg Tablet) 650 mg PO Q6H PRN PRN Reason: Pain, Mild (Pain Scale 1-3) Albuterol Sulfate (Albuterol Sulfate 90 Mcg 8 Gm Inhaler) 2 puff INHALE Q4H PRN PRN Reason: shortness of breath or wheezin Ascorbic Acid (Ascorbic Acid 500 Mg Tablet) 500 mg PO DAILY [facility] Last Admin: 02/08/21 11:59 Dose: 500 mg Documented by: ERICKA Bumetanide (Bumetanide 1 Mg Tablet) 2 mg PO DAILY PRN; Protocol PRN Reason: Dyspnea Dexamethasone Sodium Phosphate (Dexamethasone Sod Phosphate 4 Mg/Ml Vial) 6 mg IVPUSH DAILY [facility] Last Admin: 02/08/21 12:00 Dose: 6 mg Documented by: ERICKA Diltiazem HCl (Diltiazem Hcl Cd 180 Mg Cap.Er.24h) 180 mg PO DAILY [facility]; Protocol Last Admin: 02/03/21 11:43 Dose: 180 mg Documented by: RENAY Docusate Sodium (Docusate Sodium 100 Mg Capsule) 100 mg PO DAILY PRN PRN Reason: Constipation Famotidine (Famotidine 20 Mg Tablet) 40 mg PO BID [facility] Last Admin: 02/08/21 11:59 Dose: 40 mg Documented by: ERICKA Folic Acid (Folic Acid 1 Mg Tablet) 3 mg PO DAILY [facility] Last Admin: 02/08/21 11:57 Dose: 3 mg Documented by: ERICKA Gabapentin (Gabapentin 300 Mg Capsule) 300 mg PO DAILY [facility] Last Admin: 02/08/21 11:59 Dose: 300 mg Documented by: ERICKA Hydroxyzine HCl (Hydroxyzine Hcl 25 Mg Tablet) 25 mg PO Q8H PRN PRN Reason: Anxiety Last Admin: 02/07/21 20:51 Dose: 25 mg Documented by: DANA Doxycycline Hyclate 100 mg/ (Sodium Chloride) 250 mls @ 166.67 mls/hr IV Q12H [facility] Last Admin: 02/08/21 12:00 Dose: 166.67 mls/hr Documented by: ERICKA Melatonin (Melatonin 3 Mg Tablet) 6 mg PO BEDTIME PRN PRN Reason: Insomnia Last Admin: 02/07/21 20:50 Dose: 6 mg Documented by: DANA Morphine Sulfate (Morphine Sulfate 2 Mg/Ml Cartridge) 2 mg IVPUSH Q4H PRN; Protocol PRN Reason: tachypnea Last Admin: 02/08/21 05:57 Dose: 2 mg Documented by: DANA Pt Own Med ( Umeclidinium- Vilanterol [Anoro Ellipta] 62.5-25 Mcg ) 1 each INHALE DAILY [facility] Last Admin: 02/07/21 09:32 Dose: 1 each Documented by: VIOLETTE Omeprazole (Omeprazole 20 Mg Capsule.Dr) 20 mg PO DAILY@0630 [facility] Last Admin: 02/08/21 05:51 Dose: 20 mg Documented by: DANA Ondansetron HCl (Ondansetron Hcl 4 Mg/2 Ml Vial) 4 mg IVPUSH Q8H PRN PRN Reason: Nausea and Vomiting Pravastatin Sodium (Pravastatin Sodium 20 Mg Tablet) 20 mg PO DAILY [facility] Last Admin: 02/08/21 11:58 Dose: 20 mg Documented by: ERICKA Sodium Chloride (0.9 % Sodium Chloride Flush 3 Ml Syringe) 3 ml IVFLUSH QSHIFT [facility] Last Admin: 02/08/21 12:00 Dose: 3 ml Documented by: ERICKA Warfarin Sodium (Warfarin Sodium 5 Mg Tablet) 5 mg PO DAILY@1800 [facility] Last Admin: 02/03/21 18:06 Dose: 5 mg Documented by: MAK Zinc Sulfate (Zinc Sulfate 220 Mg Capsule) 220 mg PO DAILY [facility] Last Admin: 02/08/21 11:58 Dose: 220 mg Documented by: ERICKA Labs CBC & Chem 7: 02/07/21 06:03 02/08/21 06:15 Labs: Laboratory Results - last 24 hr 02/08/21 02/08/21 06:15 08:09 PT 36.9 H INR 3.2 H Anion Gap 12 Estim Creat Clear Calc 154.4 Estimated GFR > 60 Fasting Glucose 109 H Calcium 8.5 Total Bilirubin 1.0 AST 35 ALT 35 Alkaline Phosphatase 164 H Total Protein 5.6 L Albumin 3.2 L Microbiology Microbiology Results: Microbiology 02/02/21 16:08 Blood Culture - Final Blood - Venous No growth after 5 days. 02/02/21 16:07 Blood Culture - Final Blood - Venous No growth after 5 days. Assessment and Plan (1) Hypertension: Status: Acute (2) Atrial fibrillation: Status: Acute (3) Pneumonia due to 2019-nCoV: Status: Acute Assessment and Plan: 65-year-old male with RA on humira, covid vaccinated x3,? COPD, AFib, HTN, among others who presents to the hospital with dyspnea with findings of acute hypoxic respiratory failure related to? COVID-19 pneumonia; fully vaccinated; slowly improving 1.Covid-19 Improving on high-flow oxygen; continue to attempt to wean as possible Continue IV dexamethasone/Pepcid / morphine as needed for respiratory distress Exertional dyspnea less;Sats stable 2. Hyperprothrombinemia Likely multifactorial; Coumadin on hold. No risk factors/signs of bleeding. no indication for vitamin K at this time; slowly trending down Check PT INR daily 3.AFIB.(chronic) Rate controlled with current therapies Continue telemetry 4.HTN Acceptable control on current therapies. Adjust as indicated 5.Seronegative RA Methotrexate, humira on hold. DVT prophylaxis:? Warfarin Quality Stroke Does the patient have a stroke diagnosis?: No VTE Prior VTE?: No VTE Risk Level:: Medical - moderate - high VTE Device Contraindication: Treatment Not Indicated VTE Drug Contraindication: N/A - Med Ordered
[2021-02-09] VITALS (11 sets, daily range): BP systolic 127–153; BP diastolic 70–88; PULSE 65–94; RESP 18–24; TEMP 36.2–36.7; O2SAT 89–98
[2021-02-09 06:01] LABS: Prothrombin Time 23.5 SEC (9.9-13.0)
[2021-02-09] MEDS: Omeprazole 20 MG CAPSULE.DR PO (06:13)
[2021-02-09 06:14] LABS: Alanine Aminotransferase 40 U/L (0-40); Albumin Level 3.4 g/dL (3.5-5.0); Alkaline Phosphatase 163 U/L (39-117); Anion Gap 14 (12-20); Aspartate Amino Transferase 37 U/L (5-37); Bilirubin Total 1.2 mg/dL (0.0-1.0); Blood Urea Nitrogen 18 mg/dL (9-16); Calcium 8.9 mg/dL (8.4-10.2); Carbon Dioxide 26 mmol/L (22-29); Chloride 107 mmol/L (96-108); Creatinine Clr Calc Pharmacy 145.6; Estimated Glomerular Filt Rate > 60; Glucose Fasting 112 mg/dL (60-99); Potassium 4.4 mmol/L (3.3-5.1); Sodium 143 mmol/L (135-145); Total Protein 6.2 g/dL (6.5-8.0)
[2021-02-09] MEDS: Folic Acid 1 MG TABLET 3 MG PO (10:23)
[2021-02-09] MEDS: Pravastatin Sodium 20 MG TABLET PO (10:24)
[2021-02-09] MEDS: Famotidine 20 MG TABLET 40 MG PO ×2 (10:27→22:17)
[2021-02-09] MEDS: Zinc Sulfate 220 MG CAPSULE PO (10:28)
[2021-02-09] MEDS: Ascorbic Acid 500 MG TABLET PO (10:28)
[2021-02-09] MEDS: Gabapentin 300 MG CAPSULE PO (10:28)
[2021-02-09] MEDS: dexAMETHasone sod phosphate 4 MG/ML VIAL 6 MG IVPUSH (10:29)
[2021-02-09] MEDS: 0.9 % Sodium Chloride Flush 3 ML SYRINGE IVFLUSH ×2 (10:29→18:06)
--- NOTE | 2021-02-09 11:16 | P.PNIM_ITS ---
Subjective Subjective Date of Service: 02/09/21 Interval History: continues to improve per patient. Less fatigued along with less shortness of breath Review of Systems denies chest pain Shortness of breath improved No nausea vomiting diarrhea Physical Exam Vital Signs: Vital Signs: Last Vital Signs Temp 97.5 F 02/09/21 08:00 Pulse 94 02/09/21 08:00 Resp 24 H 02/09/21 08:14 BP 140/81 H 02/09/21 08:00 Pulse Ox 94 02/09/21 08:00 BMI result Body Mass Index 32.5 Const: Other: awake alert; able to speak in full sentences; up in chair Resp: Other: diminished throughout with diffuse expiratory wheezes at bases. Bilateral basilar crackl Cardio: Other: no S4; positive S1-S2; no S3 murmurs rubs gallops Extrem: Other: no edema bilaterally Objective Data Active Medications Acetaminophen (Acetaminophen 325 Mg Tablet) 650 mg PO Q6H PRN PRN Reason: Pain, Mild (Pain Scale 1-3) Albuterol Sulfate (Albuterol Sulfate 90 Mcg 8 Gm Inhaler) 2 puff INHALE Q4H PRN PRN Reason: shortness of breath or wheezin Ascorbic Acid (Ascorbic Acid 500 Mg Tablet) 500 mg PO DAILY [facility] Last Admin: 02/09/21 10:28 Dose: 500 mg Documented by: ERICKA Bumetanide (Bumetanide 1 Mg Tablet) 2 mg PO DAILY PRN; Protocol PRN Reason: Dyspnea Dexamethasone Sodium Phosphate (Dexamethasone Sod Phosphate 4 Mg/Ml Vial) 6 mg IVPUSH DAILY [facility] Last Admin: 02/09/21 10:29 Dose: 6 mg Documented by: ERICKA Diltiazem HCl (Diltiazem Hcl Cd 180 Mg Cap.Er.24h) 180 mg PO DAILY [facility]; Protocol Last Admin: 02/03/21 11:43 Dose: 180 mg Documented by: RENAY Docusate Sodium (Docusate Sodium 100 Mg Capsule) 100 mg PO DAILY PRN PRN Reason: Constipation Famotidine (Famotidine 20 Mg Tablet) 40 mg PO BID [facility] Last Admin: 02/09/21 10:27 Dose: 40 mg Documented by: ERICKA Folic Acid (Folic Acid 1 Mg Tablet) 3 mg PO DAILY [facility] Last Admin: 02/09/21 10:23 Dose: 3 mg Documented by: ERICKA Gabapentin (Gabapentin 300 Mg Capsule) 300 mg PO DAILY [facility] Last Admin: 02/09/21 10:28 Dose: 300 mg Documented by: ERICKA Hydroxyzine HCl (Hydroxyzine Hcl 25 Mg Tablet) 25 mg PO Q8H PRN PRN Reason: Anxiety Last Admin: 02/07/21 20:51 Dose: 25 mg Documented by: DANA Doxycycline Hyclate 100 mg/ (Sodium Chloride) 250 mls @ 166.67 mls/hr IV Q12H [facility] Last Infusion: 02/09/21 01:40 Dose: 0 mls/hr Documented by: DANY Melatonin (Melatonin 3 Mg Tablet) 6 mg PO BEDTIME PRN PRN Reason: Insomnia Last Admin: 02/07/21 20:50 Dose: 6 mg Documented by: DANA Morphine Sulfate (Morphine Sulfate 2 Mg/Ml Cartridge) 2 mg IVPUSH Q4H PRN; Protocol PRN Reason: tachypnea Last Admin: 02/08/21 05:57 Dose: 2 mg Documented by: DANA Pt Own Med ( Umeclidinium- Vilanterol [Anoro Ellipta] 62.5-25 Mcg ) 1 each INHALE DAILY [facility] Last Admin: 02/09/21 10:33 Dose: 1 each Documented by: ERICKA Omeprazole (Omeprazole 20 Mg Capsule.Dr) 20 mg PO DAILY@0630 [facility] Last Admin: 02/09/21 06:13 Dose: 20 mg Documented by: DANY Ondansetron HCl (Ondansetron Hcl 4 Mg/2 Ml Vial) 4 mg IVPUSH Q8H PRN PRN Reason: Nausea and Vomiting Pravastatin Sodium (Pravastatin Sodium 20 Mg Tablet) 20 mg PO DAILY [facility] Last Admin: 02/09/21 10:24 Dose: 20 mg Documented by: ERICKA Sodium Chloride (0.9 % Sodium Chloride Flush 3 Ml Syringe) 3 ml IVFLUSH QSHIFT [facility] Last Admin: 02/09/21 10:29 Dose: 3 ml Documented by: ERICKA Warfarin Sodium (Warfarin Sodium 3 Mg Tablet) 3 mg PO DAILY@1800 [facility] Zinc Sulfate (Zinc Sulfate 220 Mg Capsule) 220 mg PO DAILY [facility] Last Admin: 02/09/21 10:28 Dose: 220 mg Documented by: ERICKA Labs CBC & Chem 7: 02/07/21 06:03 02/09/21 05:40 Labs: Laboratory Results - last 24 hr 02/09/21 02/09/21 05:40 05:40 PT 23.5 H INR 2.0 H Anion Gap 14 Estim Creat Clear Calc 145.6 Estimated GFR > 60 Fasting Glucose 112 H Calcium 8.9 Total Bilirubin 1.2 H AST 37 ALT 40 Alkaline Phosphatase 163 H Total Protein 6.2 L Albumin 3.4 L Assessment and Plan (1) Pneumonia due to 2019-nCoV: Status: Acute (2) Hypertension: Status: Acute (3) Atrial fibrillation: Status: Acute Assessment and Plan: 65-year-old male with RA on humira, covid vaccinated x3,? COPD, AFib, HTN, among others who presents to the hospital with dyspnea with findings of acute hypoxic respiratory failure related to? COVID-19 pneumonia; fully vaccinated; slowly improving 1.Covid-19 Improving on high-flow oxygen; continue to attempt to wean as possible Continue IV dexamethasone/Pepcid / morphine as needed for respiratory distress Exertional dyspnea less;Sats stable 2. Hyperprothrombinemia Resolved; will restart Coumadin therapy 3.AFIB.(chronic) Rate controlled with current therapies Restart Coumadin.... continue daily INRs Continue telemetry 4.HTN Acceptable control on current therapies. Adjust as indicated 5.Seronegative RA Methotrexate, humira on hold. DVT prophylaxis:? Warfarin Full COde Quality Stroke Does the patient have a stroke diagnosis?: No VTE Prior VTE?: No VTE Risk Level:: Medical - moderate - high VTE Device Contraindication: Treatment Not Indicated VTE Drug Contraindication: N/A - Med Ordered
[2021-02-09] MEDS: Doxycycline Hyclate 100 MG in 0.9 % Sodium Chloride 250 ML 166.67 MG IV ×2 (11:33→22:17)
[2021-02-09] MEDS: Warfarin Sodium 3 MG TABLET PO (18:09)
[2021-02-09] MEDS: Morphine Sulfate 2 MG/ML CARTRIDGE IVPUSH (18:14)
[2021-02-10] VITALS (11 sets, daily range): BP systolic 119–163; BP diastolic 70–86; PULSE 62–96; RESP 18–22; TEMP 36.1–36.9; O2SAT 90–98
[2021-02-10 06:09] LABS: MANUAL DIFF FLAG NO
[2021-02-10 06:11] LABS: Basophils Percent Auto 0.3 % (0-2); Eosinophils Absolute Auto 0.2 X10*3/uL (0.0-0.4); Eosinophils Percent Auto 1.7 % (0-4); Hemoglobin 13.1 g/dl (14.0-18.0); Imm Gran Abs Auto 0.55 X10*3/uL (0.00-0.03); Imm Gran Pct Auto 4.8 % (0.0-0.4); Lymphocytes Absolute Auto 0.9 X10*3/uL (1.2-4.9); Lymphocytes Percent Auto 7.6 % (20-40); Mean Corpuscular HGB Conc 33.6 g/dl (31.0-36.0); Mean Corpuscular Hemoglobin 34.2 pg (27.0-33.0); Mean Corpuscular Volume 101.8 fL (80.0-98.0); Mean Platelet Volume 10.8 fL (9.4-12.4); Monocytes Absolute Auto 0.4 X10*3/uL (0.1-1.2); Monocytes Percent Auto 3.2 % (2-11); Neutrophils Absolute Auto 9.5 x10*3/uL (2.0-8.3); Neutrophils Percent Auto 82.4 % (45-73); Red Blood Count 3.83 X10*6/uL (4.60-5.80); Red Cell Distribution Width 14.6 % (11.0-16.0); White Blood Count 11.5 X10*3/uL (4.8-10.8)
[2021-02-10 06:18] LABS: Platelet Count 97 X10*3/uL (160-400)
[2021-02-10] MEDS: Omeprazole 20 MG CAPSULE.DR PO (06:38)
[2021-02-10 06:50] LABS: Alanine Aminotransferase 44 U/L (0-40); Albumin Level 3.1 g/dL (3.5-5.0); Alkaline Phosphatase 128 U/L (39-117); Anion Gap 11 (12-20); Aspartate Amino Transferase 33 U/L (5-37); Bilirubin Total 0.9 mg/dL (0.0-1.0); Blood Urea Nitrogen 20 mg/dL (9-16); Calcium 8.8 mg/dL (8.4-10.2); Carbon Dioxide 28 mmol/L (22-29); Chloride 106 mmol/L (96-108); Creatinine Clr Calc Pharmacy 145.6; Estimated Glomerular Filt Rate > 60; Glucose Fasting 96 mg/dL (60-99); Potassium 4.1 mmol/L (3.3-5.1); Sodium 141 mmol/L (135-145); Total Protein 5.7 g/dL (6.5-8.0)
[2021-02-10 07:54] LABS: Prothrombin Time 22.6 SEC (9.9-13.0)
[2021-02-10] MEDS: Gabapentin 300 MG CAPSULE PO (09:58)
[2021-02-10] MEDS: Pravastatin Sodium 20 MG TABLET PO (09:58)
[2021-02-10] MEDS: Zinc Sulfate 220 MG CAPSULE PO (09:59)
[2021-02-10] MEDS: 0.9 % Sodium Chloride Flush 3 ML SYRINGE IVFLUSH ×3 (09:59→21:04)
[2021-02-10] MEDS: Ascorbic Acid 500 MG TABLET PO (09:59)
[2021-02-10] MEDS: Famotidine 20 MG TABLET 40 MG PO ×2 (09:59→21:04)
[2021-02-10] MEDS: Folic Acid 1 MG TABLET 3 MG PO (09:59)
[2021-02-10] MEDS: dexAMETHasone sod phosphate 4 MG/ML VIAL 6 MG IVPUSH (11:20)
[2021-02-10] MEDS: Doxycycline Hyclate 100 MG in 0.9 % Sodium Chloride 250 ML 166.67 MG IV (11:25)
--- NOTE | 2021-02-10 11:31 | MHC.CM.PN ---
Per ROUNDS discussion, Patient is not yet medically cleared for dc (IV Decadron, IV Morphine, IV Doxycycline, High Flow O2). Home is the goal for dc and CM will follow for possible need to adjust the dc plan.
[2021-02-10] MEDS: Morphine Sulfate 2 MG/ML CARTRIDGE IVPUSH ×2 (14:51→21:04)
[2021-02-10] MEDS: Warfarin Sodium 3 MG TABLET PO (16:48)
--- NOTE | 2021-02-10 17:38 | HO.PM.IMPN ---
Subjective Subjective Date of Service: 02/10/21 Interval History: patient states better each day; continues to improve. States more stamina to sit up in the chair longer Review of Systems denies denies chest pain Denies shortness of breath Denies nausea vomiting diarrhea Physical Exam Vital Signs: Vital Signs: Last Vital Signs Temp 97.5 F 02/10/21 15:20 Pulse 85 02/10/21 15:20 Resp 18 02/10/21 15:20 BP 134/70 02/10/21 15:20 Pulse Ox 97 02/10/21 15:20 BMI result Body Mass Index 32.5 Const: Other: awake alert; able to speak in full sentences; up in chair Resp: Other: diminished throughout with diffuse expiratory wheezes at bases. Bilateral basilar crackl Cardio: Other: no S4; positive S1-S2; no S3 murmurs rubs gallops Extrem: Other: no edema bilaterally Objective Data Active Medications Acetaminophen (Acetaminophen 325 Mg Tablet) 650 mg PO Q6H PRN PRN Reason: Pain, Mild (Pain Scale 1-3) Albuterol Sulfate (Albuterol Sulfate 90 Mcg 8 Gm Inhaler) 2 puff INHALE Q4H PRN PRN Reason: shortness of breath or wheezin Ascorbic Acid (Ascorbic Acid 500 Mg Tablet) 500 mg PO DAILY [facility] Last Admin: 02/10/21 09:59 Dose: 500 mg Documented by: KIMMY Bumetanide (Bumetanide 1 Mg Tablet) 2 mg PO DAILY PRN; Protocol PRN Reason: Dyspnea Dexamethasone Sodium Phosphate (Dexamethasone Sod Phosphate 4 Mg/Ml Vial) 6 mg IVPUSH DAILY [facility] Last Admin: 02/10/21 11:20 Dose: 6 mg Documented by: KIMMY Diltiazem HCl (Diltiazem Hcl Cd 180 Mg Cap.Er.24h) 180 mg PO DAILY [facility]; Protocol Last Admin: 02/03/21 11:43 Dose: 180 mg Documented by: RENAY Docusate Sodium (Docusate Sodium 100 Mg Capsule) 100 mg PO DAILY PRN PRN Reason: Constipation Famotidine (Famotidine 20 Mg Tablet) 40 mg PO BID [facility] Last Admin: 02/10/21 09:59 Dose: 40 mg Documented by: KIMMY Folic Acid (Folic Acid 1 Mg Tablet) 3 mg PO DAILY [facility] Last Admin: 02/10/21 09:59 Dose: 3 mg Documented by: KIMMY Gabapentin (Gabapentin 300 Mg Capsule) 300 mg PO DAILY [facility] Last Admin: 02/10/21 09:58 Dose: 300 mg Documented by: KIMMY Hydroxyzine HCl (Hydroxyzine Hcl 25 Mg Tablet) 25 mg PO Q8H PRN PRN Reason: Anxiety Last Admin: 02/07/21 20:51 Dose: 25 mg Documented by: DANA Doxycycline Hyclate 100 mg/ (Sodium Chloride) 250 mls @ 166.67 mls/hr IV Q12H [facility] Last Infusion: 02/10/21 12:55 Dose: 0 mls/hr Documented by: KIMMY Melatonin (Melatonin 3 Mg Tablet) 6 mg PO BEDTIME PRN PRN Reason: Insomnia Last Admin: 02/07/21 20:50 Dose: 6 mg Documented by: DANA Morphine Sulfate (Morphine Sulfate 2 Mg/Ml Cartridge) 2 mg IVPUSH Q4H PRN; Protocol PRN Reason: Pain, Moderate (Pain Scale 4-6 Last Admin: 02/10/21 14:51 Dose: 2 mg Documented by: KIMMY Pt Own Med ( Umeclidinium- Vilanterol [Anoro Ellipta] 62.5-25 Mcg ) 1 each INHALE DAILY [facility] Last Admin: 02/10/21 09:58 Dose: 1 each Documented by: KIMMY Omeprazole (Omeprazole 20 Mg Capsule.Dr) 20 mg PO DAILY@0630 [facility] Last Admin: 02/10/21 06:38 Dose: 20 mg Documented by: MICHAEL Ondansetron HCl (Ondansetron Hcl 4 Mg/2 Ml Vial) 4 mg IVPUSH Q8H PRN PRN Reason: Nausea and Vomiting Pravastatin Sodium (Pravastatin Sodium 20 Mg Tablet) 20 mg PO DAILY [facility] Last Admin: 02/10/21 09:58 Dose: 20 mg Documented by: KIMMY Sodium Chloride (0.9 % Sodium Chloride Flush 3 Ml Syringe) 3 ml IVFLUSH QSHIFT [facility] Last Admin: 02/10/21 14:52 Dose: 3 ml Documented by: KIMMY Warfarin Sodium (Warfarin Sodium 3 Mg Tablet) 3 mg PO DAILY@1800 [facility] Last Admin: 02/10/21 16:48 Dose: 3 mg Documented by: ELISA Zinc Sulfate (Zinc Sulfate 220 Mg Capsule) 220 mg PO DAILY [facility] Last Admin: 02/10/21 09:59 Dose: 220 mg Documented by: KIMMY Labs CBC & Chem 7: 02/10/21 05:29 02/10/21 05:29 Labs: Laboratory Results - last 24 hr 02/10/21 02/10/21 02/10/21 05:29 05:29 07:29 MCV 101.8 H MCH 34.2 H MCHC 33.6 RDW 14.6 Plt Count 97 L MPV 10.8 Immature Gran % (Auto) 4.8 H Neut % (Auto) 82.4 H Lymph % (Auto) 7.6 L [place] % (Auto) 3.2 Eos % (Auto) 1.7 Baso % (Auto) 0.3 Lymph # (Auto) 0.9 L [place] # (Auto) 0.4 Eos # (Auto) 0.2 Baso # (Auto) 0.0 Abs Immat Gran (auto) 0.55 H Absolute Neuts (auto) 9.5 H Absolute Nucleated RBC 0.000 Nucleated RBC % (auto) 0.0 PT 22.6 H INR 2.0 H Anion Gap 11 L Estim Creat Clear Calc 145.6 Estimated GFR > 60 Fasting Glucose 96 Calcium 8.8 Total Bilirubin 0.9 AST 33 ALT 44 H Alkaline Phosphatase 128 H D Total Protein 5.7 L Albumin 3.1 L Assessment and Plan (1) Pneumonia due to 2019-nCoV: Status: Acute (2) Atrial fibrillation: Status: Acute Assessment and Plan: 65-year-old male with RA on humira, covid vaccinated x3,? COPD, AFib, HTN, among others who presents to the hospital with dyspnea with findings of acute hypoxic respiratory failure related to? COVID-19 pneumonia; fully vaccinated; continues to improve 1.Covid-19 Improving on high-flow oxygen; continue to attempt to wean as possible Continue IV dexamethasone/Pepcid / morphine as needed for respiratory distress Exertional dyspnea less;Sats stable 3.AFIB.(chronic) Rate controlled with current therapies Continue coumadin...daily INR Continue telemetry 4.HTN Acceptable control on current therapies. Adjust as indicated 5.Seronegative RA Methotrexate, humira on hold. DVT prophylaxis:? Warfarin Full COde Quality Stroke Does the patient have a stroke diagnosis?: No VTE Prior VTE?: No VTE Risk Level:: Medical - moderate - high VTE Device Contraindication: Treatment Not Indicated VTE Drug Contraindication: N/A - Med Ordered
[2021-02-10] MEDS: Bumetanide 1 MG TABLET 2 MG PO (21:04)
[2021-02-11] VITALS (12 sets, daily range): BP systolic 106–134; BP diastolic 58–86; PULSE 63–87; RESP 18–23; TEMP 36.1–37.1; O2SAT 91–98
[2021-02-11] MEDS: Doxycycline Hyclate 100 MG in 0.9 % Sodium Chloride 250 ML 166.67 MG IV ×3 (00:27→22:10)
[2021-02-11] MEDS: Melatonin 3 MG TABLET 6 MG PO (00:27)
[2021-02-11] MEDS: hydrOXYzine HCL 25 MG TABLET PO (00:27)
[2021-02-11] MEDS: 0.9 % Sodium Chloride Flush 3 ML SYRINGE IVFLUSH ×3 (00:28→23:19)
[2021-02-11] MEDS: Omeprazole 20 MG CAPSULE.DR PO (06:08)
[2021-02-11 07:07] LABS: Hemoglobin 13.5 g/dl (14.0-18.0); Mean Corpuscular HGB Conc 33.8 g/dl (31.0-36.0); Mean Corpuscular Hemoglobin 34.1 pg (27.0-33.0); Mean Platelet Volume 11.3 fL (9.4-12.4); Platelet Count 101 X10*3/uL (160-400); Red Blood Count 3.96 X10*6/uL (4.60-5.80); Red Cell Distribution Width 14.4 % (11.0-16.0); White Blood Count 11.9 X10*3/uL (4.8-10.8)
[2021-02-11 07:13] LABS: Prothrombin Time 23.4 SEC (9.9-13.0)
[2021-02-11 07:27] LABS: Alanine Aminotransferase 51 U/L (0-40); Albumin Level 3.2 g/dL (3.5-5.0); Alkaline Phosphatase 115 U/L (39-117); Anion Gap 14 (12-20); Aspartate Amino Transferase 34 U/L (5-37); Blood Urea Nitrogen 21 mg/dL (9-16); Calcium 8.7 mg/dL (8.4-10.2); Carbon Dioxide 28 mmol/L (22-29); Chloride 102 mmol/L (96-108); Creatinine Clr Calc Pharmacy 145.6; Estimated Glomerular Filt Rate > 60; Glucose Fasting 102 mg/dL (60-99); Potassium 3.9 mmol/L (3.3-5.1); Sodium 140 mmol/L (135-145); Total Protein 5.9 g/dL (6.5-8.0)
[2021-02-11 08:43] LABS: Band Neutrophils Percent 9 % (3-5); Lymphocytes Absolute Manual 0.6 X10*3/uL (1.2-4.9); Lymphocytes Percent Manual 5 % (20-40); Metamyelocytes Absolute 0.1 X10*3/uL; Metamyelocytes Percent 1 %; Monocytes Absolute Manual 0.5 X10*3/uL (0.1-1.2); Monocytes Percent Manual 4 % (2-11); Neutrophils Absolute Manual 10.7 X10*3/uL (2.0-8.3); Neutrophils Percent Manual 81 % (45-73)
[2021-02-11 08:44] LABS: Macrocytosis 1+ (5-14) /OIF; Platelet Estimate DECREASED (NORMAL); Platelet Morphology Comment NORMAL; Polychromasia 1+ (0-2) /OIF; RBC Morphology NOTED
[2021-02-11] MEDS: dexAMETHasone sod phosphate 4 MG/ML VIAL 6 MG IVPUSH (08:49)
[2021-02-11] MEDS: Ascorbic Acid 500 MG TABLET PO (08:50)
[2021-02-11] MEDS: Pravastatin Sodium 20 MG TABLET PO (08:50)
[2021-02-11] MEDS: Zinc Sulfate 220 MG CAPSULE PO (08:50)
[2021-02-11] MEDS: Famotidine 20 MG TABLET 40 MG PO ×2 (08:51→22:10)
[2021-02-11] MEDS: Folic Acid 1 MG TABLET 3 MG PO (08:51)
[2021-02-11] MEDS: Gabapentin 300 MG CAPSULE PO (08:51)
[2021-02-11] MEDS: Bumetanide 1 MG TABLET 2 MG PO (08:54)
[2021-02-11] MEDS: Albuterol Sulfate 90 MCG 8 GM INHALER 2 PUFF INHALE (08:59)
[2021-02-11] MEDS: Warfarin Sodium 3 MG TABLET PO (16:24)
--- NOTE | 2021-02-11 16:41 | P.PNIM_ITS ---
Subjective Subjective Date of Service: 02/11/21 Interval History: No acute events overnight. Continues to improve slowly each day Review of Systems Denies chest pain Admits to improving shortness of breath Denies nausea vomiting diarrhea Physical Exam Vital Signs: Vital Signs: Last Vital Signs Temp 98.7 F 02/11/21 15:52 Pulse 75 02/11/21 15:52 Resp 19 02/11/21 15:52 BP 132/65 02/11/21 15:52 Pulse Ox 94 02/11/21 15:52 BMI result Body Mass Index 32.5 Const: Other: awake alert; able to speak in full sentences; up in chair Resp: Other: diminished throughout with diffuse expiratory wheezes at bases. Bilateral basilar crackl Cardio: Other: no S4; positive S1-S2; no S3 murmurs rubs gallops Extrem: Other: no edema bilaterally Objective Data Active Medications Acetaminophen (Acetaminophen 325 Mg Tablet) 650 mg PO Q6H PRN PRN Reason: Pain, Mild (Pain Scale 1-3) Albuterol Sulfate (Albuterol Sulfate 90 Mcg 8 Gm Inhaler) 2 puff INHALE Q4H PRN PRN Reason: shortness of breath or wheezin Last Admin: 02/11/21 08:59 Dose: 2 puff Documented by: KIMMY Ascorbic Acid (Ascorbic Acid 500 Mg Tablet) 500 mg PO DAILY [facility] Last Admin: 02/11/21 08:50 Dose: 500 mg Documented by: KIMMY Bumetanide (Bumetanide 1 Mg Tablet) 2 mg PO DAILY PRN; Protocol PRN Reason: Dyspnea Last Admin: 02/11/21 08:54 Dose: 2 mg Documented by: KIMMY Dexamethasone Sodium Phosphate (Dexamethasone Sod Phosphate 4 Mg/Ml Vial) 6 mg IVPUSH DAILY [facility] Last Admin: 02/11/21 08:49 Dose: 6 mg Documented by: KIMMY Diltiazem HCl (Diltiazem Hcl Cd 180 Mg Cap.Er.24h) 180 mg PO DAILY [facility]; Protocol Last Admin: 02/03/21 11:43 Dose: 180 mg Documented by: RENAY Docusate Sodium (Docusate Sodium 100 Mg Capsule) 100 mg PO DAILY PRN PRN Reason: Constipation Famotidine (Famotidine 20 Mg Tablet) 40 mg PO BID [facility] Last Admin: 02/11/21 08:51 Dose: 40 mg Documented by: KIMMY Folic Acid (Folic Acid 1 Mg Tablet) 3 mg PO DAILY [facility] Last Admin: 02/11/21 08:51 Dose: 3 mg Documented by: KIMMY Gabapentin (Gabapentin 300 Mg Capsule) 300 mg PO DAILY [facility] Last Admin: 02/11/21 08:51 Dose: 300 mg Documented by: KIMMY Hydroxyzine HCl (Hydroxyzine Hcl 25 Mg Tablet) 25 mg PO Q8H PRN PRN Reason: Anxiety Last Admin: 02/11/21 00:27 Dose: 25 mg Documented by: DEUCE Doxycycline Hyclate 100 mg/ (Sodium Chloride) 250 mls @ 166.67 mls/hr IV Q12H [facility] Last Infusion: 02/11/21 14:20 Dose: 0 mls/hr Documented by: KIMMY Melatonin (Melatonin 3 Mg Tablet) 6 mg PO BEDTIME PRN PRN Reason: Insomnia Last Admin: 02/11/21 00:27 Dose: 6 mg Documented by: DEUCE Morphine Sulfate (Morphine Sulfate 2 Mg/Ml Cartridge) 2 mg IVPUSH Q4H PRN; Protocol PRN Reason: Pain, Moderate (Pain Scale 4-6 Last Admin: 02/10/21 21:04 Dose: 2 mg Documented by: MICHAEL Pt Own Med ( Umeclidinium- Vilanterol [Anoro Ellipta] 62.5-25 Mcg ) 1 each I NHALE DAILY [facility] Last Admin: 02/11/21 08:52 Dose: 1 each Documented by: KIMMY Omeprazole (Omeprazole 20 Mg Capsule.) 20 mg PO DAILY@0630 [facility] Last Admin: 02/11/21 06:08 Dose: 20 mg Documented by: DEUCE Ondansetron HCl (Ondansetron Hcl 4 Mg/2 Ml Vial) 4 mg IVPUSH Q8H PRN PRN Reason: Nausea and Vomiting Pravastatin Sodium (Pravastatin Sodium 20 Mg Tablet) 20 mg PO DAILY [facility] Last Admin: 02/11/21 08:50 Dose: 20 mg Documented by: KIMMY Sodium Chloride (0.9 % Sodium Chloride Flush 3 Ml Syringe) 3 ml IVFLUSH QSHIFT [facility] Last Admin: 02/11/21 16:25 Dose: 3 ml Documented by: EILSA Warfarin Sodium (Warfarin Sodium 3 Mg Tablet) 3 mg PO DAILY@1800 [facility] Last Admin: 02/11/21 16:24 Dose: 3 mg Documented by: ELISA Zinc Sulfate (Zinc Sulfate 220 Mg Capsule) 220 mg PO DAILY [facility] Last Admin: 02/11/21 08:50 Dose: 220 mg Documented by: KIMMY Labs CBC & Chem 7: 02/11/21 06:44 02/11/21 06:44 Labs: Laboratory Results - last 24 hr 02/11/21 02/11/21 02/11/21 06:44 06:44 06:44 MCV 101.0 H MCH 34.1 H MCHC 33.8 RDW 14.4 Plt Count 101 L MPV 11.3 Immature Gran % (Auto) Cancelled Neut % (Auto) Cancelled Lymph % (Auto) Cancelled [place] % (Auto) Cancelled Eos % (Auto) Cancelled Baso % (Auto) Cancelled Lymph # (Auto) Cancelled [place] # (Auto) Cancelled Eos # (Auto) Cancelled Baso # (Auto) Cancelled Abs Immat Gran (auto) Cancelled Absolute Neuts (auto) Cancelled Absolute Nucleated RBC 0.000 Nucleated RBC % (auto) 0.0 Neutrophils % (Manual) 81 H Band Neutrophils % 9 H Lymphocytes % (Manual) 5 L Monocytes % (Manual) 4 Metamyelocytes % 1 Abs Neuts (Manual) 10.7 H Lymphocytes # (Manual) 0.6 L Monocytes # (Manual) 0.5 Metamyelocytes # 0.1 Platelet Estimate DECREASED Plt Morphology Comment NORMAL RBC Morphology NOTED Polychromasia 1+ (0-2) Macrocytosis 1+ (5-14) PT 23.4 H INR 2.0 H Anion Gap 14 Estim Creat Clear Calc 145.6 Estimated GFR > 60 Fasting Glucose 102 H Calcium 8.7 Total Bilirubin 1.0 AST 34 ALT 51 H Alkaline Phosphatase 115 Total Protein 5.9 L Albumin 3.2 L Assessment and Plan (1) Pneumonia due to 2019-nCoV: Status: Acute (2) Elevated troponin: Status: Acute Assessment and Plan: 65-year-old male with RA on humira, covid vaccinated x3,? COPD, AFib, HTN, among others who presents to the hospital with dyspnea with findings of acute hypoxic respiratory failure related to? COVID-19 pneumonia; fully vaccinated; continues to improve 1.Covid-19 Improving on high-flow oxygen; continue to attempt to wean as possible Continue IV dexamethasone/Pepcid / morphine as needed for respiratory dist ress Exertional dyspnea less;Sats stable 3.AFIB.(chronic) Rate controlled with current therapies Continue coumadin...daily INR Continue telemetry 4.HTN Acceptable control on current therapies. Adjust as indicated DVT prophylaxis:? Warfarin Full COde Quality Stroke Does the patient have a stroke diagnosis?: No VTE Prior VTE?: No VTE Risk Level:: Medical - moderate - high VTE Device Contraindication: Treatment Not Indicated VTE Drug Contraindication: N/A - Med Ordered
[2021-02-12] VITALS (14 sets, daily range): BP systolic 119–158; BP diastolic 58–91; PULSE 56–88; RESP 16–26; TEMP 36.4–37.1; O2SAT 89–98
[2021-02-12] MEDS: Morphine Sulfate 2 MG/ML CARTRIDGE IVPUSH ×2 (01:15→11:29)
[2021-02-12] MEDS: Omeprazole 20 MG CAPSULE.DR PO (05:52)
[2021-02-12 07:35] LABS: MANUAL DIFF FLAG NO
[2021-02-12 07:39] LABS: Basophils Percent Auto 0.2 % (0-2); Eosinophils Absolute Auto 0.1 X10*3/uL (0.0-0.4); Eosinophils Percent Auto 0.8 % (0-4); Hematocrit 38.9 % (42.0-52.0); Hemoglobin 13.1 g/dl (14.0-18.0); Imm Gran Abs Auto 0.55 X10*3/uL (0.00-0.03); Imm Gran Pct Auto 4.3 % (0.0-0.4); Lymphocytes Absolute Auto 1.3 X10*3/uL (1.2-4.9); Lymphocytes Percent Auto 9.8 % (20-40); Mean Corpuscular HGB Conc 33.7 g/dl (31.0-36.0); Mean Corpuscular Hemoglobin 34.2 pg (27.0-33.0); Mean Corpuscular Volume 101.6 fL (80.0-98.0); Mean Platelet Volume 11.5 fL (9.4-12.4); Monocytes Absolute Auto 0.5 X10*3/uL (0.1-1.2); Monocytes Percent Auto 4.1 % (2-11); Neutrophils Absolute Auto 10.3 x10*3/uL (2.0-8.3); Neutrophils Percent Auto 80.8 % (45-73); Platelet Count 114 X10*3/uL (160-400); Red Blood Count 3.83 X10*6/uL (4.60-5.80); Red Cell Distribution Width 14.4 % (11.0-16.0); White Blood Count 12.7 X10*3/uL (4.8-10.8)
[2021-02-12 07:44] LABS: INTERNATIONAL NORM RATIO 2.3 (0.9-1.1); Prothrombin Time 27.2 SEC (9.9-13.0)
[2021-02-12 08:12] LABS: Alanine Aminotransferase 44 U/L (0-40); Albumin Level 3.1 g/dL (3.5-5.0); Alkaline Phosphatase 85 U/L (39-117); Anion Gap 16 (12-20); Aspartate Amino Transferase 30 U/L (5-37); Bilirubin Total 0.8 mg/dL (0.0-1.0); Blood Urea Nitrogen 22 mg/dL (9-16); Calcium 8.6 mg/dL (8.4-10.2); Carbon Dioxide 26 mmol/L (22-29); Chloride 102 mmol/L (96-108); Creatinine Clr Calc Pharmacy 143.6; Estimated Glomerular Filt Rate > 60; Glucose Fasting 89 mg/dL (60-99); Potassium 4.2 mmol/L (3.3-5.1); Sodium 140 mmol/L (135-145); Total Protein 5.7 g/dL (6.5-8.0)
[2021-02-12] MEDS: 0.9 % Sodium Chloride Flush 3 ML SYRINGE IVFLUSH ×3 (09:51→20:18)
[2021-02-12] MEDS: Albuterol Sulfate 90 MCG 8 GM INHALER 2 PUFF INHALE (09:51)
[2021-02-12] MEDS: dexAMETHasone sod phosphate 4 MG/ML VIAL 6 MG IVPUSH (09:51)
[2021-02-12] MEDS: Bumetanide 1 MG TABLET 2 MG PO (09:52)
[2021-02-12] MEDS: Folic Acid 1 MG TABLET 3 MG PO (09:52)
[2021-02-12] MEDS: Ascorbic Acid 500 MG TABLET PO (09:52)
[2021-02-12] MEDS: Pravastatin Sodium 20 MG TABLET PO (09:52)
[2021-02-12] MEDS: Gabapentin 300 MG CAPSULE PO (09:52)
[2021-02-12] MEDS: Famotidine 20 MG TABLET 40 MG PO ×2 (09:52→20:18)
[2021-02-12] MEDS: Zinc Sulfate 220 MG CAPSULE PO (09:53)
--- NOTE | 2021-02-12 12:17 | PC.NURSE ---
During assessment pt was noted to have what appears to be bloody urine. Also pt was noted to have thrush on his tongue; oral hygene was provided and, provider was made aware
--- NOTE | 2021-02-12 13:42 | MHC.CM.PN ---
Male 65 DX Covid+ No discharge today. Patient is in the process of weaning oxygen. His O2 demands are decreasing. 45L today. [facility] no services. Family will provide transportation to home.
--- NOTE | 2021-02-12 15:45 | P.PNIM_ITS ---
Subjective Subjective Date of Service: 02/12/21 Interval History: Continues to feel better; states less and less shortness of breath each day Review of Systems Denies chest pain Improving shortness of breath No nausea vomiting diarrhea Physical Exam Vital Signs: Vital Signs: Last Vital Signs Temp 97.8 F 02/12/21 15:16 Pulse 85 02/12/21 15:16 Resp 20 02/12/21 15:20 BP 127/89 02/12/21 15:16 Pulse Ox 98 02/12/21 15:16 BMI result Body Mass Index 32.5 Const: Other: awake alert; able to speak in full sentences; up in chair Resp: Other: diminished throughout with diffuse expiratory wheezes at bases. Bilateral basilar crackl Cardio: Other: no S4; positive S1-S2; no S3 murmurs rubs gallops Extrem: Other: no edema bilaterally Objective Data Active Medications Acetaminophen (Acetaminophen 325 Mg Tablet) 650 mg PO Q6H PRN PRN Reason: Pain, Mild (Pain Scale 1-3) Albuterol Sulfate (Albuterol Sulfate 90 Mcg 8 Gm Inhaler) 2 puff INHALE Q4H PRN PRN Reason: shortness of breath or wheezin Last Admin: 02/12/21 09:51 Dose: 2 puff Documented by: ANUSHKA Ascorbic Acid (Ascorbic Acid 500 Mg Tablet) 500 mg PO DAILY [facility] Last Admin: 02/12/21 09:52 Dose: 500 mg Documented by: ANUSHKA Bumetanide (Bumetanide 1 Mg Tablet) 2 mg PO DAILY PRN; Protocol PRN Reason: Dyspnea Last Admin: 02/12/21 09:52 Dose: 2 mg Documented by: ANUSHKA Dexamethasone Sodium Phosphate (Dexamethasone Sod Phosphate 4 Mg/Ml Vial) 6 mg IVPUSH DAILY [facility] Last Admin: 02/12/21 09:51 Dose: 6 mg Documented by: ANUSHKA Diltiazem HCl (Diltiazem Hcl Cd 180 Mg Cap.Er.24h) 180 mg PO DAILY [facility]; Protocol Last Admin: 02/03/21 11:43 Dose: 180 mg Documented by: RENAY Docusate Sodium (Docusate Sodium 100 Mg Capsule) 100 mg PO DAILY PRN PRN Reason: Constipation Famotidine (Famotidine 20 Mg Tablet) 40 mg PO BID [facility] Last Admin: 02/12/21 09:52 Dose: 40 mg Documented by: ANUSHKA Folic Acid (Folic Acid 1 Mg Tablet) 3 mg PO DAILY [facility] Last Admin: 02/12/21 09:52 Dose: 3 mg Documented by: ANUSHKA Gabapentin (Gabapentin 300 Mg Capsule) 300 mg PO DAILY [facility] Last Admin: 02/12/21 09:52 Dose: 300 mg Documented by: ANUSHKA Hydroxyzine HCl (Hydroxyzine Hcl 25 Mg Tablet) 25 mg PO Q8H PRN PRN Reason: Anxiety Last Admin: 02/11/21 00:27 Dose: 25 mg Documented by: DEUCE Melatonin (Melatonin 3 Mg Tablet) 6 mg PO BEDTIME PRN PRN Reason: Insomnia Last Admin: 02/11/21 00:27 Dose: 6 mg Documented by: DEUCE Morphine Sulfate (Morphine Sulfate 2 Mg/Ml Cartridge) 2 mg IVPUSH Q4H PRN; Protocol PRN Reason: Pain, Moderate (Pain Scale 4-6 Last Admin: 02/12/21 11:29 Dose: 2 mg Documented by: ANUSHKA Pt Own Med ( Umeclidinium- Vilanterol [Anoro Ellipta] 62.5-25 Mcg ) 1 each INHALE DAILY [facility] Last Admin: 02/12/21 09:51 Dose: 1 each Documented by: ANUSHKA Omeprazole (Omeprazole 20 Mg Capsule.) 20 mg PO DAILY@0630 [facility] Last Admin: 02/12/21 05:52 Dose: 20 mg Documented by: KHLOE Ondansetron HCl (Ondansetron Hcl 4 Mg/2 Ml Vial) 4 mg IVPUSH Q8H PRN PRN Reason: Nausea and Vomiting Pravastatin Sodium (Pravastatin Sodium 20 Mg Tablet) 20 mg PO DAILY [facility] Last Admin: 02/12/21 09:52 Dose: 20 mg Documented by: ANUSHKA Sodium Chloride (0.9 % Sodium Chloride Flush 3 Ml Syringe) 3 ml IVFLUSH QSHIFT [facility] Last Admin: 02/12/21 09:51 Dose: 3 ml Documented by: ANUSHKA Warfarin Sodium (Warfarin Sodium 3 Mg Tablet) 3 mg PO DAILY@1800 [facility] Last Admin: 02/11/21 16:24 Dose: 3 mg Documented by: ELISA Zinc Sulfate (Zinc Sulfate 220 Mg Capsule) 220 mg PO DAILY [facility] Last Admin: 02/12/21 09:53 Dose: 220 mg Documented by: ANUSHKA Labs CBC & Chem 7: 02/12/21 06:48 02/12/21 06:48 Labs: Laboratory Results - last 24 hr 02/02/21 02/03/21 02/05/21 16:08 05:57 07:05 WBC 7.0 7.5 16.4 H MCV MCH MCHC RDW Plt Count MPV Immature Gran % (Auto) Neut % (Auto) Lymph % (Auto) [place] % (Auto) Eos % (Auto) Baso % (Auto) Lymph # (Auto) [place] # (Auto) Eos # (Auto) Baso # (Auto) Abs Immat Gran (auto) Absolute Neuts (auto) Absolute Nucleated RBC Nucleated RBC % (auto) PT INR Anion Gap Estim Creat Clear Calc Estimated GFR Fasting Glucose Calcium Total Bilirubin AST ALT Alkaline Phosphatase Total Protein Albumin 02/06/21 02/07/21 02/10/21 07:05 06:03 05:29 WBC 15.1 H 14.9 H 11.5 H MCV MCH MCHC RDW Plt Count MPV Immature Gran % (Auto) Neut % (Auto) Lymph % (Auto) [place] % (Auto) Eos % (Auto) Baso % (Auto) Lymph # (Auto) [place] # (Auto) Eos # (Auto) Baso # (Auto) Abs Immat Gran (auto) Absolute Neuts (auto) Absolute Nucleated RBC Nucleated RBC % (auto) PT INR Anion Gap Estim Creat Clear Calc Estimated GFR Fasting Glucose Calcium Total Bilirubin AST ALT Alkaline Phosphatase Total Protein Albumin 02/11/21 02/12/21 02/12/21 06:44 06:48 06:48 WBC 11.9 H 12.7 H MCV 101.6 H MCH 34.2 H MCHC 33.7 RDW 14.4 Plt Count 114 L MPV 11.5 Immature Gran % (Auto) 4.3 H Neut % (Auto) 80.8 H Lymph % (Auto) 9.8 L [place] % (Auto) 4.1 Eos % (Auto) 0.8 Baso % (Auto) 0.2 Lymph # (Auto) 1.3 [place] # (Auto) 0.5 Eos # (Auto) 0.1 Baso # (Auto) 0.0 Abs Immat Gran (auto) 0.55 H Absolute Neuts (auto) 10.3 H Absolute Nucleated RBC 0.000 Nucleated RBC % (auto) 0.0 PT 27.2 H INR 2.3 H Anion Gap Estim Creat Clear Calc Estimated GFR Fasting Glucose Calcium Total Bilirubin AST ALT Alkaline Phosphatase Total Protein Albumin 02/12/21 06:48 WBC MCV MCH MCHC RDW Plt Count MPV Immature Gran % (Auto) Neut % (Auto) Lymph % (Auto) [place] % (Auto) Eos % (Auto) Baso % (Auto) Lymph # (Auto) [place] # (Auto) Eos # (Auto) Baso # (Auto) Abs Immat Gran (auto) Absolute Neuts (auto) Absolute Nucleated RBC Nucleated RBC % (auto) PT INR Anion Gap 16 Estim Creat Clear Calc 143.6 Estimated GFR > 60 Fasting Glucose 89 Calcium 8.6 Total Bilirubin 0.8 AST 30 ALT 44 H Alkaline Phosphatase 85 D Total Protein 5.7 L Albumin 3.1 L Assessment and Plan (1) Pneumonia due to 2019-nCoV: Status: Acute (2) Atrial fibrillation: Status: Acute Assessment and Plan: 65-year-old male with RA on humira, covid vaccinated x3,? COPD, AFib, HTN, among others who presents to the hospital with dyspnea with findings of acute hypoxic respiratory failure related to? COVID-19 pneumonia; fully vaccinated; continues to improve 1.Covid-19 Improving on high-flow oxygen; continue to attempt to wean as possible Continue IV dexamethasone/Pepcid / morphine as needed for respiratory distress Exertional dyspnea less;Sats stable. Encourage cough deep breathe and expect duration 3.AFIB.(chronic) Rate controlled with current therapies Continue coumadin...daily INR Continue telemetry 4.HTN Acceptable control on current therapies. Adjust as indicated DVT prophylaxis:? Warfarin Full COde Quality Stroke Does the patient have a stroke diagnosis?: No VTE Prior VTE?: No VTE Risk Level:: Medical - moderate - high VTE Device Contraindication: Treatment Not Indicated VTE Drug Contraindication: N/A - Med Ordered
[2021-02-12] MEDS: Warfarin Sodium 3 MG TABLET PO (17:29)
[2021-02-13] VITALS (11 sets, daily range): BP systolic 115–148; BP diastolic 64–90; PULSE 57–73; RESP 15–22; TEMP 36.1–36.6; O2SAT 87–97
[2021-02-13] MEDS: Morphine Sulfate 2 MG/ML CARTRIDGE IVPUSH ×3 (04:56→20:06)
[2021-02-13] MEDS: Omeprazole 20 MG CAPSULE.DR PO (05:04)
[2021-02-13 07:13] LABS: MANUAL DIFF FLAG NO
[2021-02-13 07:15] LABS: Basophils Percent Auto 0.3 % (0-2); Eosinophils Absolute Auto 0.1 X10*3/uL (0.0-0.4); Eosinophils Percent Auto 0.8 % (0-4); Hematocrit 40.2 % (42.0-52.0); Hemoglobin 13.6 g/dl (14.0-18.0); Imm Gran Abs Auto 0.65 X10*3/uL (0.00-0.03); Imm Gran Pct Auto 4.2 % (0.0-0.4); Lymphocytes Absolute Auto 1.5 X10*3/uL (1.2-4.9); Lymphocytes Percent Auto 9.7 % (20-40); Mean Corpuscular HGB Conc 33.8 g/dl (31.0-36.0); Mean Corpuscular Hemoglobin 34.3 pg (27.0-33.0); Mean Corpuscular Volume 101.3 fL (80.0-98.0); Monocytes Absolute Auto 0.7 X10*3/uL (0.1-1.2); Monocytes Percent Auto 4.5 % (2-11); Neutrophils Absolute Auto 12.3 x10*3/uL (2.0-8.3); Neutrophils Percent Auto 80.5 % (45-73); Platelet Count 138 X10*3/uL (160-400); Red Blood Count 3.97 X10*6/uL (4.60-5.80); Red Cell Distribution Width 14.5 % (11.0-16.0); White Blood Count 15.3 X10*3/uL (4.8-10.8)
[2021-02-13 07:26] LABS: INTERNATIONAL NORM RATIO 2.2 (0.9-1.1); Prothrombin Time 25.8 SEC (9.9-13.0)
[2021-02-13 07:50] LABS: Alanine Aminotransferase 50 U/L (0-40); Albumin Level 3.3 g/dL (3.5-5.0); Alkaline Phosphatase 77 U/L (39-117); Anion Gap 13 (12-20); Aspartate Amino Transferase 34 U/L (5-37); Blood Urea Nitrogen 22 mg/dL (9-16); Calcium 8.4 mg/dL (8.4-10.2); Carbon Dioxide 33 mmol/L (22-29); Chloride 99 mmol/L (96-108); Creatinine Clr Calc Pharmacy 143.7; Estimated Glomerular Filt Rate > 60; Glucose Fasting 96 mg/dL (60-99); Potassium 4.1 mmol/L (3.3-5.1); Sodium 141 mmol/L (135-145); Total Protein 5.9 g/dL (6.5-8.0)
[2021-02-13] MEDS: Famotidine 20 MG TABLET 40 MG PO ×2 (09:56→19:51)
[2021-02-13] MEDS: Folic Acid 1 MG TABLET 3 MG PO (09:57)
[2021-02-13] MEDS: 0.9 % Sodium Chloride Flush 3 ML SYRINGE IVFLUSH ×3 (09:57→19:51)
[2021-02-13] MEDS: Zinc Sulfate 220 MG CAPSULE PO (09:57)
[2021-02-13] MEDS: Ascorbic Acid 500 MG TABLET PO (09:57)
[2021-02-13] MEDS: dexAMETHasone sod phosphate 4 MG/ML VIAL 6 MG IVPUSH (09:57)
[2021-02-13] MEDS: Pravastatin Sodium 20 MG TABLET PO (09:57)
[2021-02-13] MEDS: Gabapentin 300 MG CAPSULE PO (09:57)
--- NOTE | 2021-02-13 12:11 | HO.PM.IMPN ---
Subjective Subjective Date of Service: 02/13/21 Interval History: f/u on covid realted resp failre, persistent hypoxia but note some improvment breathing easier Review of Systems no fever sob +cough Physical Exam Vital Signs: Vital Signs: Last Vital Signs Temp 97.7 F 02/13/21 11:34 Pulse 73 02/13/21 11:34 Resp 20 02/13/21 11:34 BP 142/75 H 02/13/21 11:34 Pulse Ox 97 02/13/21 11:34 BMI result Body Mass Index 32.5 Const: Other: General: AO X 3, no acute distress Resp: CTA bilateral CVS: S1,S2,RRR GI: +BS, NT, no distention Skin: No rash Neuro: motor grossly intact Psych: appropriate affect Objective Data Active Medications Acetaminophen (Acetaminophen 325 Mg Tablet) 650 mg PO Q6H PRN PRN Reason: Pain, Mild (Pain Scale 1-3) Albuterol Sulfate (Albuterol Sulfate 90 Mcg 8 Gm Inhaler) 2 puff INHALE Q4H PRN PRN Reason: shortness of breath or wheezin Last Admin: 02/12/21 09:51 Dose: 2 puff Documented by: ANUSHKA Ascorbic Acid (Ascorbic Acid 500 Mg Tablet) 500 mg PO DAILY [facility] Last Admin: 02/13/21 09:57 Dose: 500 mg Documented by: JASMIN Bumetanide (Bumetanide 1 Mg Tablet) 2 mg PO DAILY PRN; Protocol PRN Reason: Dyspnea Last Admin: 02/12/21 09:52 Dose: 2 mg Documented by: ANUSHKA Dexamethasone Sodium Phosphate (Dexamethasone Sod Phosphate 4 Mg/Ml Vial) 6 mg IVPUSH DAILY [facility] Last Admin: 02/13/21 09:57 Dose: 6 mg Documented by: JASMIN Diltiazem HCl (Diltiazem Hcl Cd 180 Mg Cap.Er.24h) 180 mg PO DAILY [facility]; Protocol Last Admin: 02/03/21 11:43 Dose: 180 mg Documented by: RENAY Docusate Sodium (Docusate Sodium 100 Mg Capsule) 100 mg PO DAILY PRN PRN Reason: Constipation Famotidine (Famotidine 20 Mg Tablet) 40 mg PO BID [facility] Last Admin: 02/13/21 09:56 Dose: 40 mg Documented by: JASMIN Folic Acid (Folic Acid 1 Mg Tablet) 3 mg PO DAILY [facility] Last Admin: 02/13/21 09:57 Dose: 3 mg Documented by: JASMIN Gabapentin (Gabapentin 300 Mg Capsule) 300 mg PO DAILY [facility] Last Admin: 02/13/21 09:57 Dose: 300 mg Documented by: JASMIN Hydroxyzine HCl (Hydroxyzine Hcl 25 Mg Tablet) 25 mg PO Q8H PRN PRN Reason: Anxiety Last Admin: 02/11/21 00:27 Dose: 25 mg Documented by: DEUCE Melatonin (Melatonin 3 Mg Tablet) 6 mg PO BEDTIME PRN PRN Reason: Insomnia Last Admin: 02/11/21 00:27 Dose: 6 mg Documented by: DEUCE Morphine Sulfate (Morphine Sulfate 2 Mg/Ml Cartridge) 2 mg IVPUSH Q4H PRN; Protocol PRN Reason: Pain, Moderate (Pain Scale 4-6 Last Admin: 02/13/21 04:56 Dose: 2 mg Documented by: RAQUEL Pt Own Med ( Umeclidinium- Vilanterol [Anoro Ellipta] 62.5-25 Mcg ) 1 each INHALE DAILY [facility] Last Admin: 02/13/21 10:02 Dose: 1 each Documented by: JASMIN Omeprazole (Omeprazole 20 Mg Capsule.) 20 mg PO DAILY@0630 [facility] Last Admin: 02/13/21 05:04 Dose: 20 mg Documented by: RAQUEL Ondansetron HCl (Ondansetron Hcl 4 Mg/2 Ml Vial) 4 mg IVPUSH Q8H PRN PRN Reason: Nausea and Vomiting Pravastatin Sodium (Pravastatin Sodium 20 Mg Tablet) 20 mg PO DAILY [facility] Last Admin: 02/13/21 09:57 Dose: 20 mg Documented by: JASMIN Sodium Chloride (0.9 % Sodium Chloride Flush 3 Ml Syringe) 3 ml IVFLUSH QSHIFT [facility] Last Admin: 02/13/21 09:57 Dose: 3 ml Documented by: JASMIN Warfarin Sodium (Warfarin Sodium 3 Mg Tablet) 3 mg PO DAILY@1800 [facility] Last Admin: 02/12/21 17:29 Dose: 3 mg Documented by: ANUSHKA Zinc Sulfate (Zinc Sulfate 220 Mg Capsule) 220 mg PO DAILY [facility] Last Admin: 02/13/21 09:57 Dose: 220 mg Documented by: JASMIN Labs CBC & Chem 7: 02/13/21 06:51 02/13/21 06:51 Labs: Laboratory Results - last 24 hr 02/13/21 02/13/21 02/13/21 06:51 06:51 06:51 MCV 101.3 H MCH 34.3 H MCHC 33.8 RDW 14.5 Plt Count 138 L MPV 11.0 Immature Gran % (Auto) 4.2 H Neut % (Auto) 80.5 H Lymph % (Auto) 9.7 L [place] % (Auto) 4.5 Eos % (Auto) 0.8 Baso % (Auto) 0.3 Lymph # (Auto) 1.5 [place] # (Auto) 0.7 Eos # (Auto) 0.1 Baso # (Auto) 0.0 Abs Immat Gran (auto) 0.65 H Absolute Neuts (auto) 12.3 H Absolute Nucleated RBC 0.000 Nucleated RBC % (auto) 0.0 PT 25.8 H INR 2.2 H Anion Gap 13 Estim Creat Clear Calc 143.7 Estimated GFR > 60 Fasting Glucose 96 Calcium 8.4 Total Bilirubin 1.0 AST 34 ALT 50 H Alkaline Phosphatase 77 Total Protein 5.9 L Albumin 3.3 L Assessment and Plan (1) Pneumonia due to 2019-nCoV: Status: Acute (2) Atrial fibrillation: Status: Acute Assessment and Plan: 65-year-old male with RA on humira, covid vaccinated x3,? COPD, AFib, HTN, among others who presents to the hospital with dyspnea with findings of acute hypoxic respiratory failure related to? COVID-19 pneumonia; fully vaccinated; continues to improve 1.Covid-19 related acute hypoxic resp failure Makin increemental progress on high-flow oxygen; continue to attempt to wean as possible Continue IV dexamethasone/Pepcid / morphine as needed for respiratory distress 3.AFIB.(chronic) Rate controlled with cardizem Continue coumadin...daily INR 4.HTN Acceptable control on current therapies. Adjust as indicated DVT prophylaxis:? Warfarin Full COde Quality Stroke Does the patient have a stroke diagnosis?: No VTE Prior VTE?: No VTE Risk Level:: Medical - moderate - high VTE Device Contraindication: Treatment Not Indicated VTE Drug Contraindication: N/A - Med Ordered
[2021-02-13] MEDS: Warfarin Sodium 3 MG TABLET PO (16:49)
[2021-02-14 03:33] VITALS: BP 119/65; PULSE 70; RESP 18; TEMP 36.4; O2SAT 93
[2021-02-14] MEDS: Omeprazole 20 MG CAPSULE.DR PO (06:20)
[2021-02-14 06:54] LABS: MANUAL DIFF FLAG NO
[2021-02-14 07:09] LABS: Basophils Percent Auto 0.3 % (0-2); Eosinophils Absolute Auto 0.1 X10*3/uL (0.0-0.4); Eosinophils Percent Auto 0.5 % (0-4); Hematocrit 37.6 % (42.0-52.0); Hemoglobin 12.7 g/dl (14.0-18.0); Imm Gran Abs Auto 0.38 X10*3/uL (0.00-0.03); Imm Gran Pct Auto 2.4 % (0.0-0.4); Lymphocytes Absolute Auto 1.8 X10*3/uL (1.2-4.9); Lymphocytes Percent Auto 11.3 % (20-40); Mean Corpuscular HGB Conc 33.8 g/dl (31.0-36.0); Mean Corpuscular Hemoglobin 34.4 pg (27.0-33.0); Mean Corpuscular Volume 101.9 fL (80.0-98.0); Mean Platelet Volume 10.8 fL (9.4-12.4); Monocytes Absolute Auto 0.8 X10*3/uL (0.1-1.2); Monocytes Percent Auto 4.8 % (2-11); Neutrophils Absolute Auto 12.7 x10*3/uL (2.0-8.3); Neutrophils Percent Auto 80.7 % (45-73); Platelet Count 157 X10*3/uL (160-400); Red Blood Count 3.69 X10*6/uL (4.60-5.80); Red Cell Distribution Width 14.3 % (11.0-16.0); White Blood Count 15.8 X10*3/uL (4.8-10.8)
[2021-02-14 07:24] LABS: Alanine Aminotransferase 44 U/L (0-40); Albumin Level 3.1 g/dL (3.5-5.0); Alkaline Phosphatase 65 U/L (39-117); Anion Gap 11 (12-20); Aspartate Amino Transferase 26 U/L (5-37); Bilirubin Total 0.8 mg/dL (0.0-1.0); Blood Urea Nitrogen 19 mg/dL (9-16); Calcium 8.6 mg/dL (8.4-10.2); Carbon Dioxide 32 mmol/L (22-29); Chloride 100 mmol/L (96-108); Creatinine Clr Calc Pharmacy 150.1; Estimated Glomerular Filt Rate > 60; Glucose Fasting 88 mg/dL (60-99); Sodium 139 mmol/L (135-145); Total Protein 5.7 g/dL (6.5-8.0)
[2021-02-14 07:41] VITALS: BP 150/74; PULSE 83; RESP 18; TEMP 36.2; O2SAT 94
[2021-02-14] MEDS: 0.9 % Sodium Chloride Flush 3 ML SYRINGE IVFLUSH ×3 (09:31→20:28)
[2021-02-14] MEDS: dexAMETHasone sod phosphate 4 MG/ML VIAL 6 MG IVPUSH (09:31)
[2021-02-14] MEDS: Famotidine 20 MG TABLET 40 MG PO ×2 (09:32→20:27)
[2021-02-14] MEDS: Docusate Sodium 100 MG CAPSULE PO (09:32)
[2021-02-14] MEDS: Zinc Sulfate 220 MG CAPSULE PO (09:32)
[2021-02-14] MEDS: Ascorbic Acid 500 MG TABLET PO (09:32)
[2021-02-14] MEDS: Pravastatin Sodium 20 MG TABLET PO (09:32)
[2021-02-14] MEDS: Bumetanide 1 MG TABLET 2 MG PO (09:33)
[2021-02-14] MEDS: Gabapentin 300 MG CAPSULE PO (09:34)
[2021-02-14] MEDS: Folic Acid 1 MG TABLET 3 MG PO (09:34)
[2021-02-14] MEDS: Morphine Sulfate 2 MG/ML CARTRIDGE IVPUSH ×2 (09:34→20:27)
[2021-02-14] MEDS: Albuterol Sulfate 90 MCG 8 GM INHALER 2 PUFF INHALE (09:35)
[2021-02-14 09:36] LABS: INTERNATIONAL NORM RATIO 2.2 (0.9-1.1); Prothrombin Time 25.8 SEC (9.9-13.0)
--- NOTE | 2021-02-14 10:09 | HO.PM.IMPN ---
Subjective Subjective Date of Service: 02/15/21 Interval History: f/u on covid realted resp failre, persistent hypoxia but note some improvment breathing easier, has been transitioned to nasal [place] from high flow Review of Systems no fever sob +cough Physical Exam Vital Signs: Vital Signs: Last Vital Signs Temp 97.2 F 02/14/21 07:41 Pulse 83 02/14/21 07:41 Resp 18 02/14/21 07:41 BP 150/74 H 02/14/21 07:41 Pulse Ox 94 02/14/21 07:41 BMI result Body Mass Index 32.5 Const: Other: General: AO X 3, no acute distress Resp: CTA bilateral CVS: S1,S2,RRR GI: +BS, NT, no distention Skin: No rash Neuro: motor grossly intact Psych: appropriate affect Objective Data Active Medications Acetaminophen (Acetaminophen 325 Mg Tablet) 650 mg PO Q6H PRN PRN Reason: Pain, Mild (Pain Scale 1-3) Albuterol Sulfate (Albuterol Sulfate 90 Mcg 8 Gm Inhaler) 2 puff INHALE Q4H PRN PRN Reason: shortness of breath or wheezin Last Admin: 02/14/21 09:35 Dose: 2 puff Documented by: KIMMY Ascorbic Acid (Ascorbic Acid 500 Mg Tablet) 500 mg PO DAILY [facility] Last Admin: 02/14/21 09:32 Dose: 500 mg Documented by: KIMMY Bumetanide (Bumetanide 1 Mg Tablet) 2 mg PO DAILY PRN; Protocol PRN Reason: Dyspnea Last Admin: 02/14/21 09:33 Dose: 2 mg Documented by: KIMMY Dexamethasone Sodium Phosphate (Dexamethasone Sod Phosphate 4 Mg/Ml Vial) 6 mg IVPUSH DAILY [facility] Last Admin: 02/14/21 09:31 Dose: 6 mg Documented by: KIMMY Diltiazem HCl (Diltiazem Hcl Cd 180 Mg Cap.Er.24h) 180 mg PO DAILY [facility]; Protocol Last Admin: 02/03/21 11:43 Dose: 180 mg Documented by: RENAY Docusate Sodium (Docusate Sodium 100 Mg Capsule) 100 mg PO DAILY PRN PRN Reason: Constipation Last Admin: 02/14/21 09:32 Dose: 100 mg Documented by: KIMMY Famotidine (Famotidine 20 Mg Tablet) 40 mg PO BID [facility] Last Admin: 02/14/21 09:32 Dose: 40 mg Documented by: KIMMY Folic Acid (Folic Acid 1 Mg Tablet) 3 mg PO DAILY [facility] Last Admin: 02/14/21 09:34 Dose: 3 mg Documented by: KIMMY Gabapentin (Gabapentin 300 Mg Capsule) 300 mg PO DAILY [facility] Last Admin: 02/14/21 09:34 Dose: 300 mg Documented by: KIMMY Hydroxyzine HCl (Hydroxyzine Hcl 25 Mg Tablet) 25 mg PO Q8H PRN PRN Reason: Anxiety Last Admin: 02/11/21 00:27 Dose: 25 mg Documented by: DEUCE Melatonin (Melatonin 3 Mg Tablet) 6 mg PO BEDTIME PRN PRN Reason: Insomnia Last Admin: 02/11/21 00:27 Dose: 6 mg Documented by: DEUCE Morphine Sulfate (Morphine Sulfate 2 Mg/Ml Cartridge) 2 mg IVPUSH Q4H PRN; Protocol PRN Reason: Pain, Moderate (Pain Scale 4-6 Last Admin: 02/14/21 09:34 Dose: 2 mg Documented by: KIMMY Pt Own Med ( Umeclidinium- Vilanterol [Anoro Ellipta] 62.5-25 Mcg ) 1 each INHALE DAILY [facility] Last Admin: 02/14/21 09:35 Dose: 1 each Documented by: KIMMY Omeprazole (Omeprazole 20 Mg Capsule.Dr) 20 mg PO DAILY@0630 [facility] Last Admin: 02/14/21 06:20 Dose: 20 mg Documented by: RAQUEL Ondansetron HCl (Ondansetron Hcl 4 Mg/2 Ml Vial) 4 mg IVPUSH Q8H PRN PRN Reason: Nausea and Vomiting Pravastatin Sodium (Pravastatin Sodium 20 Mg Tablet) 20 mg PO DAILY [facility] Last Admin: 02/14/21 09:32 Dose: 20 mg Documented by: KIMMY Sodium Chloride (0.9 % Sodium Chloride Flush 3 Ml Syringe) 3 ml IVFLUSH QSHIFT [facility] Last Admin: 02/14/21 09:31 Dose: 3 ml Documented by: KIMMY Warfarin Sodium (Warfarin Sodium 3 Mg Tablet) 3 mg PO DAILY@1800 [facility] Last Admin: 02/13/21 16:49 Dose: 3 mg Documented by: JASMIN Zinc Sulfate (Zinc Sulfate 220 Mg Capsule) 220 mg PO DAILY [facility] Last Admin: 02/14/21 09:32 Dose: 220 mg Documented by: KIMMY Labs CBC & Chem 7: 02/15/21 06:41 02/15/21 06:41 Labs: Laboratory Results - last 24 hr 02/14/21 02/14/21 02/14/21 06:14 06:14 09:03 MCV 101.9 H MCH 34.4 H MCHC 33.8 RDW 14.3 Plt Count 157 L MPV 10.8 Immature Gran % (Auto) 2.4 H Neut % (Auto) 80.7 H Lymph % (Auto) 11.3 L [place] % (Auto) 4.8 Eos % (Auto) 0.5 Baso % (Auto) 0.3 Lymph # (Auto) 1.8 [place] # (Auto) 0.8 Eos # (Auto) 0.1 Baso # (Auto) 0.0 Abs Immat Gran (auto) 0.38 H Absolute Neuts (auto) 12.7 H Absolute Nucleated RBC 0.000 Nucleated RBC % (auto) 0.0 PT 25.8 H INR 2.2 H Anion Gap 11 L Estim Creat Clear Calc 150.1 Estimated GFR > 60 Fasting Glucose 88 Calcium 8.6 Total Bilirubin 0.8 AST 26 ALT 44 H Alkaline Phosphatase 65 Total Protein 5.7 L Albumin 3.1 L Assessment and Plan (1) Pneumonia due to 2019-nCoV: Status: Acute (2) Atrial fibrillation: Status: Acute Assessment and Plan: 65-year-old male with RA on humira, covid vaccinated x3,? COPD, AFib, HTN, among others who presents to the hospital with dyspnea with findings of acute hypoxic respiratory failure related to? COVID-19 pneumonia; fully vaccinated; continues to improve 1.Covid-19 related acute hypoxic resp failure Making increemental progress--transitioned to nasal [place] from high flow To complete IV dexamethasone x 10 days, /Pepcid / morphine as needed for respiratory distress 3.AFIB.(chronic) Rate controlled with cardizem Continue coumadin...daily INR 4.HTN Acceptable control on current therapies. Adjust as indicated DVT prophylaxis:? Warfarin Full COde Quality Stroke Does the patient have a stroke diagnosis?: No VTE Prior VTE?: No VTE Risk Level:: Medical - moderate - high VTE Device Contraindication: Treatment Not Indicated VTE Drug Contraindication: N/A - Med Ordered
--- NOTE | 2021-02-14 11:38 | MHC.CM.PN ---
Per ROUNDS discussion, Patient is not yet medically cleared for dc (IV Decadron, IV Morphine today). Home is the goal for dc and CM will follow for possible need to adjust the dc plan.
[2021-02-14 11:49] VITALS: BP 140/70; PULSE 77; RESP 24; TEMP 36.7; O2SAT 92
[2021-02-14 15:23] VITALS: BP 138/72; PULSE 93; RESP 24; TEMP 36.7; O2SAT 98
--- NOTE | 2021-02-14 16:34 | PC.NURSE ---
Report given to Darion, RN
[2021-02-14] MEDS: Warfarin Sodium 3 MG TABLET PO (17:40)
[2021-02-14 19:03] LABS: Magnesium 1.7 mg/dL (1.6-2.6)
[2021-02-14 20:00] VITALS: BP 128/79; PULSE 78; RESP 24; TEMP 36.6; O2SAT 96
[2021-02-14 23:51] VITALS: BP 131/72; PULSE 69; RESP 20; TEMP 36; O2SAT 99
[2021-02-15 04:00] VITALS: BP 109/59; PULSE 74; RESP 20; TEMP 36.7; O2SAT 95
[2021-02-15] MEDS: Omeprazole 20 MG CAPSULE.DR PO (05:51)
[2021-02-15 07:18] LABS: MANUAL DIFF FLAG NO
[2021-02-15 07:22] LABS: Alanine Aminotransferase 51 U/L (0-40); Albumin Level 3.1 g/dL (3.5-5.0); Alkaline Phosphatase 56 U/L (39-117); Anion Gap 11 (12-20); Aspartate Amino Transferase 29 U/L (5-37); Bilirubin Total 0.6 mg/dL (0.0-1.0); Blood Urea Nitrogen 19 mg/dL (9-16); Calcium 8.4 mg/dL (8.4-10.2); Carbon Dioxide 31 mmol/L (22-29); Chloride 101 mmol/L (96-108); Creatinine Clr Calc Pharmacy 145.8; Estimated Glomerular Filt Rate > 60; Glucose Fasting 99 mg/dL (60-99); Sodium 139 mmol/L (135-145); Total Protein 5.6 g/dL (6.5-8.0)
[2021-02-15 07:26] LABS: Basophils Percent Auto 0.2 % (0-2); Eosinophils Absolute Auto 0.1 X10*3/uL (0.0-0.4); Eosinophils Percent Auto 0.6 % (0-4); Imm Gran Abs Auto 0.48 X10*3/uL (0.00-0.03); Lymphocytes Absolute Auto 1.9 X10*3/uL (1.2-4.9); Mean Corpuscular HGB Conc 33.3 g/dl (31.0-36.0); Mean Corpuscular Hemoglobin 34.1 pg (27.0-33.0); Mean Corpuscular Volume 102.4 fL (80.0-98.0); Mean Platelet Volume 10.4 fL (9.4-12.4); Monocytes Absolute Auto 0.9 X10*3/uL (0.1-1.2); Monocytes Percent Auto 5.7 % (2-11); Neutrophils Absolute Auto 12.7 x10*3/uL (2.0-8.3); Neutrophils Percent Auto 78.5 % (45-73); Platelet Count 164 X10*3/uL (160-400); Red Blood Count 3.81 X10*6/uL (4.60-5.80); Red Cell Distribution Width 14.5 % (11.0-16.0); White Blood Count 16.1 X10*3/uL (4.8-10.8)
[2021-02-15 07:50] VITALS: BP 130/73; PULSE 58; RESP 22; TEMP 36.2; O2SAT 98
--- NOTE | 2021-02-15 09:50 | P.PNIM_ITS ---
Subjective Subjective Date of Service: 02/15/21 Interval History: f/u on covid realted resp failre, persistent hypoxia but note some improvment breathing easier and feels better than yesterday Review of Systems no fever sob -cough Physical Exam Vital Signs: Vital Signs: Last Vital Signs Temp 97.2 F 02/15/21 07:50 Pulse 58 02/15/21 07:50 Resp 22 H 02/15/21 07:50 BP 130/73 02/15/21 07:50 Pulse Ox 98 02/15/21 07:50 BMI result Body Mass Index 32.5 Const: Other: General: AO X 3, no acute distress Resp: CTA bilateral CVS: S1,S2,RRR GI: +BS, NT, no distention Skin: No rash Neuro: motor grossly intact Psych: appropriate affect Objective Data Active Medications Acetaminophen (Acetaminophen 325 Mg Tablet) 650 mg PO Q6H PRN PRN Reason: Pain, Mild (Pain Scale 1-3) Albuterol Sulfate (Albuterol Sulfate 90 Mcg 8 Gm Inhaler) 2 puff INHALE Q4H PRN PRN Reason: shortness of breath or wheezin Last Admin: 02/14/21 09:35 Dose: 2 puff Documented by: KIMMY Ascorbic Acid (Ascorbic Acid 500 Mg Tablet) 500 mg PO DAILY [facility] Last Admin: 02/14/21 09:32 Dose: 500 mg Documented by: KIMMY Bumetanide (Bumetanide 1 Mg Tablet) 2 mg PO DAILY PRN; Protocol PRN Reason: Dyspnea Last Admin: 02/14/21 09:33 Dose: 2 mg Documented by: KIMMY Dexamethasone Sodium Phosphate (Dexamethasone Sod Phosphate 4 Mg/Ml Vial) 6 mg IVPUSH DAILY [facility] Last Admin: 02/14/21 09:31 Dose: 6 mg Documented by: KIMMY Diltiazem HCl (Diltiazem Hcl Cd 180 Mg Cap.Er.24h) 180 mg PO DAILY [facility]; Protocol Last Admin: 02/03/21 11:43 Dose: 180 mg Documented by: RENAY Docusate Sodium (Docusate Sodium 100 Mg Capsule) 100 mg PO DAILY PRN PRN Reason: Constipation Last Admin: 02/14/21 09:32 Dose: 100 mg Documented by: KIMMY Famotidine (Famotidine 20 Mg Tablet) 40 mg PO BID [facility] Last Admin: 02/14/21 20:27 Dose: 40 mg Documented by: SARAH Folic Acid (Folic Acid 1 Mg Tablet) 3 mg PO DAILY [facility] Last Admin: 02/14/21 09:34 Dose: 3 mg Documented by: KIMMY Gabapentin (Gabapentin 300 Mg Capsule) 300 mg PO DAILY [facility] Last Admin: 02/14/21 09:34 Dose: 300 mg Documented by: KIMMY Hydroxyzine HCl (Hydroxyzine Hcl 25 Mg Tablet) 25 mg PO Q8H PRN PRN Reason: Anxiety Last Admin: 02/11/21 00:27 Dose: 25 mg Documented by: DEUCE Melatonin (Melatonin 3 Mg Tablet) 6 mg PO BEDTIME PRN PRN Reason: Insomnia Last Admin: 02/11/21 00:27 Dose: 6 mg Documented by: DEUCE Morphine Sulfate (Morphine Sulfate 2 Mg/Ml Cartridge) 2 mg IVPUSH Q4H PRN; Protocol PRN Reason: Pain, Moderate (Pain Scale 4-6 Last Admin: 02/14/21 20:27 Dose: 2 mg Documented by: SARAH Pt Own Med ( Umeclidinium- Vilanterol [Anoro Ellipta] 62.5-25 Mcg ) 1 each INHALE DAILY [facility] Last Admin: 02/14/21 09:35 Dose: 1 each Documented by: KIMMY Omeprazole (Omeprazole 20 Mg Capsule.Dr) 20 mg PO DAILY@0630 [facility] Last Admin: 02/15/21 05:51 Dose: 20 mg Documented by: SARAH Ondansetron HCl (Ondansetron Hcl 4 Mg/2 Ml Vial) 4 mg IVPUSH Q8H PRN PRN Reason: Nausea and Vomiting Pravastatin Sodium (Pravastatin Sodium 20 Mg Tablet) 20 mg PO DAILY [facility] Last Admin: 02/14/21 09:32 Dose: 20 mg Documented by: KIMMY Sodium Chloride (0.9 % Sodium Chloride Flush 3 Ml Syringe) 3 ml IVFLUSH QSHIFT [facility] Last Admin: 02/14/21 20:28 Dose: 3 ml Documented by: SARAH Warfarin Sodium (Warfarin Sodium 3 Mg Tablet) 3 mg PO DAILY@1800 [facility] Last Admin: 02/14/21 17:40 Dose: 3 mg Documented by: FRANKY Zinc Sulfate (Zinc Sulfate 220 Mg Capsule) 220 mg PO DAILY [facility] Last Admin: 02/14/21 09:32 Dose: 220 mg Documented by: KIMMY Labs CBC & Chem 7: 02/15/21 06:41 02/15/21 06:41 Labs: Laboratory Results - last 24 hr 02/14/21 02/15/21 02/15/21 18:41 06:41 06:41 MCV 102.4 H MCH 34.1 H MCHC 33.3 RDW 14.5 Plt Count 164 MPV 10.4 Immature Gran % (Auto) 3.0 H Neut % (Auto) 78.5 H Lymph % (Auto) 12.0 L [place] % (Auto) 5.7 Eos % (Auto) 0.6 Baso % (Auto) 0.2 Lymph # (Auto) 1.9 [place] # (Auto) 0.9 Eos # (Auto) 0.1 Baso # (Auto) 0.0 Abs Immat Gran (auto) 0.48 H Absolute Neuts (auto) 12.7 H Absolute Nucleated RBC 0.000 Nucleated RBC % (auto) 0.0 Anion Gap 11 L Estim Creat Clear Calc 145.8 Estimated GFR > 60 Fasting Glucose 99 Calcium 8.4 Magnesium 1.7 Total Bilirubin 0.6 AST 29 ALT 51 H Alkaline Phosphatase 56 Total Protein 5.6 L Albumin 3.1 L Assessment and Plan (1) Pneumonia due to 2019-nCoV: Status: Acute (2) Atrial fibrillation: Status: Acute Assessment and Plan: 65-year-old male with RA on humira, covid vaccinated x3,? COPD, AFib, HTN, among others who presents to the hospital with dyspnea with findings of acute hypoxic respiratory failure related to? COVID-19 pneumonia; fully vaccinated; continues to improve 1.Covid-19 related acute hypoxic resp failure Making increemental progress--transitioned to nasal nicola from high flow, wean slowly To complete IV dexamethasone x 10 days, /Pepcid / morphine as needed for respiratory distress 3.AFIB.(chronic) Rate controlled with cardizem Continue coumadin...daily INR 4.HTN Acceptable control on current therapies. Adjust as indicated DVT prophylaxis:? Warfarin Full COde Quality Stroke Does the patient have a stroke diagnosis?: No VTE Prior VTE?: No VTE Risk Level:: Medical - moderate - high VTE Device Contraindication: Treatment Not Indicated VTE Drug Contraindication: N/A - Med Ordered
[2021-02-15 09:57] LABS: Prothrombin Time 23.3 SEC (9.9-13.0)
[2021-02-15 11:15] VITALS: BP 130/68; PULSE 74; RESP 22; TEMP 36.9; O2SAT 97
[2021-02-15] MEDS: Zinc Sulfate 220 MG CAPSULE PO (11:28)
[2021-02-15] MEDS: Folic Acid 1 MG TABLET 3 MG PO (11:28)
[2021-02-15] MEDS: Gabapentin 300 MG CAPSULE PO (11:28)
[2021-02-15] MEDS: Ascorbic Acid 500 MG TABLET PO (11:29)
[2021-02-15] MEDS: Pravastatin Sodium 20 MG TABLET PO (11:29)
[2021-02-15] MEDS: 0.9 % Sodium Chloride Flush 3 ML SYRINGE IVFLUSH ×2 (11:29→15:36)
[2021-02-15] MEDS: Famotidine 20 MG TABLET 40 MG PO ×2 (11:29→21:05)
[2021-02-15] MEDS: dexAMETHasone sod phosphate 4 MG/ML VIAL 6 MG IVPUSH (11:29)
[2021-02-15] MEDS: Morphine Sulfate 2 MG/ML CARTRIDGE IVPUSH (11:34)
[2021-02-15] MEDS: Albuterol Sulfate 90 MCG 8 GM INHALER 2 PUFF INHALE ×2 (11:41→15:36)
[2021-02-15 15:03] VITALS: BP 122/64; PULSE 66; RESP 20; TEMP 36.6; O2SAT 98
[2021-02-15] MEDS: Warfarin Sodium 3 MG TABLET PO (15:37)
[2021-02-15 19:14] VITALS: BP 165/81; PULSE 81; RESP 20; TEMP 36.2; O2SAT 90
[2021-02-15 23:36] VITALS: BP 126/58; PULSE 72; RESP 19; TEMP 36.1; O2SAT 94
[2021-02-16 03:46] VITALS: BP 118/54; PULSE 68; RESP 20; TEMP 36.4; O2SAT 95
[2021-02-16] MEDS: Morphine Sulfate 2 MG/ML CARTRIDGE IVPUSH ×3 (05:21→20:05)
[2021-02-16] MEDS: Omeprazole 20 MG CAPSULE.DR PO (05:22)
--- NOTE | 2021-02-16 06:58 | PC.NURSE ---
at approximately 2345 pt had run of 4 PVC, then bigeminy PVC. MD notified, pt asymptomatic, VSS.
[2021-02-16 07:12] LABS: Prothrombin Time 23.6 SEC (9.9-13.0)
[2021-02-16 07:18] VITALS: BP 143/95; PULSE 69; RESP 20; TEMP 35.5; O2SAT 90
[2021-02-16 08:53] LABS: Hematocrit 40.8 % (42.0-52.0); Hemoglobin 13.5 g/dl (14.0-18.0); Mean Corpuscular HGB Conc 33.1 g/dl (31.0-36.0); Mean Corpuscular Volume 102.8 fL (80.0-98.0); Mean Platelet Volume 10.4 fL (9.4-12.4); Platelet Count 174 X10*3/uL (160-400); Red Blood Count 3.97 X10*6/uL (4.60-5.80); Red Cell Distribution Width 14.5 % (11.0-16.0); White Blood Count 17.3 X10*3/uL (4.8-10.8)
[2021-02-16 09:07] LABS: Anion Gap 13 (12-20); Blood Urea Nitrogen 17 mg/dL (9-16); Calcium 8.8 mg/dL (8.4-10.2); Carbon Dioxide 31 mmol/L (22-29); Chloride 102 mmol/L (96-108); Creatinine Clr Calc Pharmacy 145.8; Estimated Glomerular Filt Rate > 60; Glucose Random 122 mg/dL (60-115); Magnesium 1.8 mg/dL (1.6-2.6); Potassium 3.7 mmol/L (3.3-5.1); Sodium 142 mmol/L (135-145)
--- NOTE | 2021-02-16 09:26 | HO.PM.IMPN ---
Subjective Subjective Date of Service: 02/16/21 Interval History: f/u on covid realted resp failre, persistent hypoxia but note some improvment breathing easier and continues to feel better Review of Systems no fever sob -cough Physical Exam Vital Signs: Vital Signs: Last Vital Signs Temp 96 F L 02/16/21 07:18 Pulse 69 02/16/21 07:18 Resp 20 02/16/21 07:18 BP 143/95 H 02/16/21 07:18 Pulse Ox 90 L 02/16/21 07:18 BMI result Body Mass Index 32.5 Const: Other: General: AO X 3, no acute distress Resp: CTA bilateral CVS: S1,S2,RRR GI: +BS, NT, no distention Skin: No rash Neuro: motor grossly intact Psych: appropriate affect Objective Data Active Medications Acetaminophen (Acetaminophen 325 Mg Tablet) 650 mg PO Q6H PRN PRN Reason: Pain, Mild (Pain Scale 1-3) Albuterol Sulfate (Albuterol Sulfate 90 Mcg 8 Gm Inhaler) 2 puff INHALE Q4H PRN PRN Reason: shortness of breath or wheezin Last Admin: 02/15/21 15:36 Dose: 2 puff Documented by: YANIRA Ascorbic Acid (Ascorbic Acid 500 Mg Tablet) 500 mg PO DAILY [facility] Last Admin: 02/15/21 11:29 Dose: 500 mg Documented by: FAHAD Bumetanide (Bumetanide 1 Mg Tablet) 2 mg PO DAILY PRN; Protocol PRN Reason: Dyspnea Last Admin: 02/14/21 09:33 Dose: 2 mg Documented by: KIMMY Dexamethasone Sodium Phosphate (Dexamethasone Sod Phosphate 4 Mg/Ml Vial) 6 mg IVPUSH DAILY [facility] Last Admin: 02/15/21 11:29 Dose: 6 mg Documented by: FAHAD Diltiazem HCl (Diltiazem Hcl Cd 180 Mg Cap.Er.24h) 180 mg PO DAILY [facility]; Protocol Last Admin: 02/03/21 11:43 Dose: 180 mg Documented by: RENAY Docusate Sodium (Docusate Sodium 100 Mg Capsule) 100 mg PO DAILY PRN PRN Reason: Constipation Last Admin: 02/14/21 09:32 Dose: 100 mg Documented by: KIMMY Famotidine (Famotidine 20 Mg Tablet) 40 mg PO BID [facility] Last Admin: 02/15/21 21:05 Dose: 40 mg Documented by: YANIRA Folic Acid (Folic Acid 1 Mg Tablet) 3 mg PO DAILY [facility] Last Admin: 02/15/21 11:28 Dose: 3 mg Documented by: FAHAD Gabapentin (Gabapentin 300 Mg Capsule) 300 mg PO DAILY [facility] Last Admin: 02/15/21 11:28 Dose: 300 mg Documented by: FAHAD Hydroxyzine HCl (Hydroxyzine Hcl 25 Mg Tablet) 25 mg PO Q8H PRN PRN Reason: Anxiety Last Admin: 02/11/21 00:27 Dose: 25 mg Documented by: DEUCE Melatonin (Melatonin 3 Mg Tablet) 6 mg PO BEDTIME PRN PRN Reason: Insomnia Last Admin: 02/11/21 00:27 Dose: 6 mg Documented by: DEUCE Morphine Sulfate (Morphine Sulfate 2 Mg/Ml Cartridge) 2 mg IVPUSH Q4H PRN; Protocol PRN Reason: Pain, Severe (Pain Scale 7-10) Last Admin: 02/16/21 05:21 Dose: 2 mg Documented by: MICHAEL Pt Own Med ( Umeclidinium- Vilanterol [Anoro Ellipta] 62.5-25 Mcg ) 1 each INHALE DAILY [facility] Last Admin: 02/15/21 11:41 Dose: 1 each Documented by: FAHAD Omeprazole (Omeprazole 20 Mg Capsule.) 20 mg PO DAILY@0630 [facility] Last Admin: 02/16/21 05:22 Dose: 20 mg Documented by: MICHAEL Ondansetron HCl (Ondansetron Hcl 4 Mg/2 Ml Vial) 4 mg IVPUSH Q8H PRN PRN Reason: Nausea and Vomiting Pravastatin Sodium (Pravastatin Sodium 20 Mg Tablet) 20 mg PO DAILY [facility] Last Admin: 02/15/21 11:29 Dose: 20 mg Documented by: FAHAD Sodium Chloride (0.9 % Sodium Chloride Flush 3 Ml Syringe) 3 ml IVFLUSH QSHIFT [facility] Last Admin: 02/16/21 01:19 Dose: Not Given Documented by: MICHAEL Non-Admin Reason: Previously Administered Warfarin Sodium (Warfarin Sodium 3 Mg Tablet) 3 mg PO DAILY@1800 [facility] Last Admin: 02/15/21 15:37 Dose: 3 mg Documented by: YANIRA Zinc Sulfate (Zinc Sulfate 220 Mg Capsule) 220 mg PO DAILY [facility] Last Admin: 02/15/21 11:28 Dose: 220 mg Documented by: FAHAD Labs CBC & Chem 7: 02/16/21 08:19 02/16/21 08:19 Labs: Laboratory Results - last 24 hr 02/15/21 02/16/21 02/16/21 09:16 06:37 08:19 MCV 102.8 H MCH 34.0 H MCHC 33.1 RDW 14.5 Plt Count 174 MPV 10.4 Absolute Nucleated RBC 0.000 Nucleated RBC % (auto) 0.0 PT 23.3 H 23.6 H INR 2.0 H 2.0 H Anion Gap Estim Creat Clear Calc Estimated GFR Random Glucose Calcium Magnesium 02/16/21 08:19 MCV MCH MCHC RDW Plt Count MPV Absolute Nucleated RBC Nucleated RBC % (auto) PT INR Anion Gap 13 Estim Creat Clear Calc 145.8 Estimated GFR > 60 Random Glucose 122 H Calcium 8.8 Magnesium 1.8 Assessment and Plan (1) Pneumonia due to 2019-nCoV: Status: Acute (2) Atrial fibrillation: Status: Acute Assessment and Plan: 65-year-old male with RA on humira, covid vaccinated x3,? COPD, AFib, HTN, among others who presents to the hospital with dyspnea with findings of acute hypoxic respiratory failure related to? COVID-19 pneumonia; fully vaccinated; continues to improve 1.Covid-19 related acute hypoxic resp failure Making increemental progress--transitioned to nasal nicola from high flow, wean slowly To complete IV dexamethasone x 10 days, /Pepcid / morphine as needed for respiratory distress 3.AFIB.(chronic) Rate controlled with cardizem Continue coumadin...daily INR 4.HTN Acceptable control on current therapies. Adjust as indicated DVT prophylaxis:? Warfarin Full COde Quality Stroke Does the patient have a stroke diagnosis?: No VTE Prior VTE?: No VTE Risk Level:: Medical - moderate - high VTE Device Contraindication: Treatment Not Indicated VTE Drug Contraindication: N/A - Med Ordered
[2021-02-16 10:00] VITALS: RESP 20
[2021-02-16] MEDS: dexAMETHasone sod phosphate 4 MG/ML VIAL 6 MG IVPUSH (10:00)
[2021-02-16] MEDS: Albuterol Sulfate 90 MCG 8 GM INHALER 2 PUFF INHALE (10:08)
[2021-02-16] MEDS: Famotidine 20 MG TABLET 40 MG PO ×2 (10:09→20:05)
[2021-02-16] MEDS: Gabapentin 300 MG CAPSULE PO (10:09)
[2021-02-16] MEDS: Ascorbic Acid 500 MG TABLET PO (10:10)
[2021-02-16] MEDS: Folic Acid 1 MG TABLET 3 MG PO (10:10)
[2021-02-16] MEDS: Pravastatin Sodium 20 MG TABLET PO (10:10)
[2021-02-16] MEDS: Zinc Sulfate 220 MG CAPSULE PO (10:10)
[2021-02-16] MEDS: 0.9 % Sodium Chloride Flush 3 ML SYRINGE IVFLUSH ×3 (10:13→20:05)
[2021-02-16 11:09] VITALS: BP 132/69; PULSE 66; RESP 19; TEMP 36.1; O2SAT 97
[2021-02-16 15:16] VITALS: BP 147/73; PULSE 65; RESP 20; TEMP 36.8; O2SAT 98
[2021-02-16] MEDS: Warfarin Sodium 3 MG TABLET PO (18:05)
[2021-02-16] MEDS: Docusate Sodium 100 MG CAPSULE PO (18:05)
[2021-02-16 19:13] VITALS: BP 160/70; PULSE 72; RESP 20; TEMP 36.5; O2SAT 96
[2021-02-17] VITALS (7 sets, daily range): BP systolic 105–162; BP diastolic 59–87; PULSE 50–87; RESP 18–24; TEMP 36.1–37.4; O2SAT 90–97
[2021-02-17] MEDS: Omeprazole 20 MG CAPSULE.DR PO (05:56)
[2021-02-17 09:02] LABS: INTERNATIONAL NORM RATIO 1.7 (0.9-1.1); Prothrombin Time 19.6 SEC (9.9-13.0)
[2021-02-17] MEDS: dexAMETHasone sod phosphate 4 MG/ML VIAL 6 MG IVPUSH (09:43)
[2021-02-17] MEDS: 0.9 % Sodium Chloride Flush 3 ML SYRINGE IVFLUSH ×3 (09:43→20:17)
[2021-02-17] MEDS: Zinc Sulfate 220 MG CAPSULE PO (09:45)
[2021-02-17] MEDS: Ascorbic Acid 500 MG TABLET PO (09:45)
[2021-02-17] MEDS: Pravastatin Sodium 20 MG TABLET PO (09:46)
[2021-02-17] MEDS: Gabapentin 300 MG CAPSULE PO (09:46)
[2021-02-17] MEDS: Famotidine 20 MG TABLET 40 MG PO ×2 (09:46→20:16)
[2021-02-17] MEDS: Folic Acid 1 MG TABLET 3 MG PO (09:47)
[2021-02-17] MEDS: Morphine Sulfate 2 MG/ML CARTRIDGE IVPUSH ×2 (09:50→20:16)
[2021-02-17] MEDS: Acetaminophen 325 MG TABLET 650 MG PO ×2 (09:50→17:33)
--- NOTE | 2021-02-17 13:09 | MHC.CM.PN ---
Per ROUNDS discussion, Patient is not yet medically cleared for dc (IV decadron, IV Morphine, 9L O2). Home is the goal for dc and CM will follow for possible need to adjust the dc plan.
--- NOTE | 2021-02-17 14:42 | P.PNIM_ITS ---
Subjective Subjective Date of Service: 02/17/21 Interval History: breathing improved per patient. Stable overnight. Does note back pain from bed and back Review of Systems denies chest pain Denies shortness of breath Denies nausea vomiting diarrhea Physical Exam Vital Signs: Vital Signs: Last Vital Signs Temp 99.4 F 02/17/21 11:34 Pulse 50 02/17/21 11:34 Resp 20 02/17/21 11:34 BP 115/59 L 02/17/21 11:34 Pulse Ox 97 02/17/21 11:34 BMI result Body Mass Index 32.5 Const: Other: awake alert; able to speak in full sentences; up in chair Resp: Other: diminished throughout with diffuse expiratory wheezes at bases. Bilateral basilar crackl Cardio: Other: no S4; positive S1-S2; no S3 murmurs rubs gallops Extrem: Other: no edema bilaterally Objective Data Active Medications Acetaminophen (Acetaminophen 325 Mg Tablet) 650 mg PO Q6H PRN PRN Reason: Pain, Mild (Pain Scale 1-3) Last Admin: 02/17/21 09:50 Dose: 650 mg Documented by: RAUDEL Albuterol Sulfate (Albuterol Sulfate 90 Mcg 8 Gm Inhaler) 2 puff INHALE Q4H PRN PRN Reason: shortness of breath or wheezin Last Admin: 02/16/21 10:08 Dose: 2 puff Documented by: RAFIA Ascorbic Acid (Ascorbic Acid 500 Mg Tablet) 500 mg PO DAILY [facility] Last Admin: 02/17/21 09:45 Dose: 500 mg Documented by: RAUDEL Bumetanide (Bumetanide 1 Mg Tablet) 2 mg PO DAILY PRN; Protocol PRN Reason: Dyspnea Last Admin: 02/14/21 09:33 Dose: 2 mg Documented by: KIMMY Dexamethasone Sodium Phosphate (Dexamethasone Sod Phosphate 4 Mg/Ml Vial) 6 mg IVPUSH DAILY [facility] Last Admin: 02/17/21 09:43 Dose: 6 mg Documented by: RAUDEL Diltiazem HCl (Diltiazem Hcl Cd 180 Mg Cap.Er.24h) 180 mg PO DAILY [facility]; Protocol Last Admin: 02/03/21 11:43 Dose: 180 mg Documented by: RENAY Docusate Sodium (Docusate Sodium 100 Mg Capsule) 100 mg PO DAILY PRN PRN Reason: Constipation Last Admin: 02/16/21 18:05 Dose: 100 mg Documented by: RAFIA Famotidine (Famotidine 20 Mg Tablet) 40 mg PO BID [facility] Last Admin: 02/17/21 09:46 Dose: 40 mg Documented by: RAUDEL Folic Acid (Folic Acid 1 Mg Tablet) 3 mg PO DAILY [facility] Last Admin: 02/17/21 09:47 Dose: 3 mg Documented by: RAUDEL Gabapentin (Gabapentin 300 Mg Capsule) 300 mg PO DAILY [facility] Last Admin: 02/17/21 09:46 Dose: 300 mg Documented by: RAUDEL Hydroxyzine HCl (Hydroxyzine Hcl 25 Mg Tablet) 25 mg PO Q8H PRN PRN Reason: Anxiety Last Admin: 02/11/21 00:27 Dose: 25 mg Documented by: DEUCE Melatonin (Melatonin 3 Mg Tablet) 6 mg PO BEDTIME PRN PRN Reason: Insomnia Last Admin: 02/11/21 00:27 Dose: 6 mg Documented by: DEUCE Morphine Sulfate (Morphine Sulfate 2 Mg/Ml Cartridge) 2 mg IVPUSH Q4H PRN; Protocol PRN Reason: Pain, Severe (Pain Scale 7-10) Last Admin: 02/17/21 09:50 Dose: 2 mg Documented by: RAUDEL Pt Own Med ( Umeclidinium- Vilanterol [Anoro Ellipta] 62.5-25 Mcg ) 1 each INHALE DAILY [facility] Last Admin: 02/17/21 09:58 Dose: 1 each Documented by: RAUDEL Omeprazole (Omeprazole 20 Mg Christian.) 20 mg PO DAILY@0630 [facility] Last Admin: 02/17/21 05:56 Dose: 20 mg Documented by: MEJIA Ondansetron HCl (Ondansetron Hcl 4 Mg/2 Ml Vial) 4 mg IVPUSH Q8H PRN PRN Reason: Nausea and Vomiting Pravastatin Sodium (Pravastatin Sodium 20 Mg Tablet) 20 mg PO DAILY [facility] Last Admin: 02/17/21 09:46 Dose: 20 mg Documented by: RAUDEL Sodium Chloride (0.9 % Sodium Chloride Flush 3 Ml Syringe) 3 ml IVFLUSH QSHIFT [facility] Last Admin: 02/17/21 09:43 Dose: 3 ml Documented by: RAUDEL Warfarin Sodium (Warfarin Sodium 3 Mg Tablet) 3 mg PO DAILY@1800 [facility] Last Admin: 02/16/21 18:05 Dose: 3 mg Documented by: RAFIA Zinc Sulfate (Zinc Sulfate 220 Mg Capsule) 220 mg PO DAILY [facility] Last Admin: 02/17/21 09:45 Dose: 220 mg Documented by: RAUDEL Labs CBC & Chem 7: 02/16/21 08:19 02/16/21 08:19 Labs: Laboratory Results - last 24 hr 02/17/21 08:06 PT 19.6 H INR 1.7 H Assessment and Plan (1) Supratherapeutic INR: Status: Acute (2) Acute respiratory failure with hypoxia: Status: Acute (3) Pneumonia due to 2019-nCoV: Status: Acute (4) Atrial fibrillation: Status: Acute Assessment and Plan: 65-year-old male with RA on humira, covid vaccinated x3,? COPD, AFib, HTN, among others who presents to the hospital with dyspnea with findings of acute hypoxic respiratory failure related to? COVID-19 pneumonia; fully vaccinated; continues to improve 1.Covid-19 Continues to wean slowly; Sats 97% on [place] Continue IV dexamethasone/Pepcid / morphine as needed for respiratory distress Exertional dyspnea less;Sats stable. Encourage cough deep breathe and expect duration 3.AFIB.(chronic) Rate controlled with current therapies Continue coumadin...daily INR Continue telemetry 4.HTN Acceptable control on current therapies. Adjust as indicated DVT prophylaxis:? Warfarin Full COde Quality Stroke Does the patient have a stroke diagnosis?: No VTE Prior VTE?: No VTE Risk Level:: Medical - moderate - high VTE Device Contraindication: Treatment Not Indicated VTE Drug Contraindication: N/A - Med Ordered
[2021-02-17] MEDS: Lactulose 20 GM/30 ML SOLUTION PO (17:33)
[2021-02-17] MEDS: oxyCODONE HCl Immed Release 5 MG TABLET PO (17:33)
[2021-02-17] MEDS: Docusate Sodium 100 MG CAPSULE PO (17:34)
[2021-02-17] MEDS: Warfarin Sodium 3 MG TABLET PO (17:34)
--- NOTE | 2021-02-17 18:30 | PC.NURSE ---
Pt alert and oriented x4. c/O 6-8/10 arthritic pain. PRN Morphine 2mg IV given with good effect. Pt continues on 11L Oxygen [place]. O2 decreased to 9L and pt tolerated it well. At 1400, O2 decreased to 5L [place] and continues to tolerate well. O2 decrease again to 2l [place] and remains on it. PRN Oxycodone and tylenol also given at 1700 for a of 6/10 arthritic pain with good effect.
[2021-02-18 03:22] VITALS: BP 138/72; PULSE 61; RESP 18; TEMP 36.6; O2SAT 91
[2021-02-18] MEDS: Omeprazole 20 MG CAPSULE.DR PO (05:31)
[2021-02-18 06:48] LABS: MANUAL DIFF FLAG NO
[2021-02-18 06:56] LABS: Basophils Percent Auto 0.3 % (0-2); Eosinophils Absolute Auto 0.1 X10*3/uL (0.0-0.4); Eosinophils Percent Auto 0.7 % (0-4); Hematocrit 41.4 % (42.0-52.0); Hemoglobin 13.5 g/dl (14.0-18.0); Imm Gran Abs Auto 0.45 X10*3/uL (0.00-0.03); Lymphocytes Absolute Auto 2.1 X10*3/uL (1.2-4.9); Mean Corpuscular HGB Conc 32.6 g/dl (31.0-36.0); Mean Corpuscular Hemoglobin 33.3 pg (27.0-33.0); Mean Platelet Volume 10.4 fL (9.4-12.4); Monocytes Percent Auto 6.4 % (2-11); Neutrophils Absolute Auto 11.4 x10*3/uL (2.0-8.3); Neutrophils Percent Auto 75.6 % (45-73); Platelet Count 175 X10*3/uL (160-400); Red Blood Count 4.06 X10*6/uL (4.60-5.80); Red Cell Distribution Width 14.7 % (11.0-16.0)
[2021-02-18 06:58] LABS: INTERNATIONAL NORM RATIO 1.7 (0.9-1.1); Prothrombin Time 19.4 SEC (9.9-13.0)
[2021-02-18 07:09] LABS: Alanine Aminotransferase 41 U/L (0-40); Albumin Level 3.3 g/dL (3.5-5.0); Alkaline Phosphatase 51 U/L (39-117); Anion Gap 13 (12-20); Aspartate Amino Transferase 24 U/L (5-37); Bilirubin Total 0.8 mg/dL (0.0-1.0); Blood Urea Nitrogen 14 mg/dL (9-16); Calcium 8.7 mg/dL (8.4-10.2); Carbon Dioxide 28 mmol/L (22-29); Chloride 106 mmol/L (96-108); Creatinine Clr Calc Pharmacy 152.4; Estimated Glomerular Filt Rate > 60; Glucose Fasting 93 mg/dL (60-99); Potassium 4.7 mmol/L (3.3-5.1); Sodium 142 mmol/L (135-145); Total Protein 5.8 g/dL (6.5-8.0)
[2021-02-18 07:57] VITALS: BP 168/78; PULSE 75; RESP 22; TEMP 36.2; O2SAT 92
[2021-02-18] MEDS: Folic Acid 1 MG TABLET 3 MG PO (09:33)
[2021-02-18] MEDS: Gabapentin 300 MG CAPSULE PO (09:33)
[2021-02-18] MEDS: Ascorbic Acid 500 MG TABLET PO (09:33)
[2021-02-18] MEDS: Famotidine 20 MG TABLET 40 MG PO (09:33)
[2021-02-18] MEDS: dexAMETHasone sod phosphate 4 MG/ML VIAL 6 MG IVPUSH (09:33)
[2021-02-18] MEDS: Zinc Sulfate 220 MG CAPSULE PO (09:33)
[2021-02-18] MEDS: 0.9 % Sodium Chloride Flush 3 ML SYRINGE IVFLUSH (09:34)
[2021-02-18] MEDS: Pravastatin Sodium 20 MG TABLET PO (09:34)
[2021-02-18] MEDS: Acetaminophen 325 MG TABLET 650 MG PO ×2 (09:37→17:26)
[2021-02-18] MEDS: oxyCODONE HCl Immed Release 5 MG TABLET PO ×2 (09:38→17:25)
[2021-02-18 11:10] VITALS: BP 133/73; PULSE 73; RESP 24; TEMP 36.6; O2SAT 92
[2021-02-18 14:48] VITALS: PULSE 102; PULSE 94; PULSE 95; O2SAT 84; O2SAT 86; O2SAT 87; O2SAT 89
--- NOTE | 2021-02-18 15:12 | P.DS_ITS ---
DS: Providers Provider Date of Service: 02/18/21 Date of admission: 02/02/21 21:21 Date of discharge: 02/18/21 Primary care physician: Los Jacques MD DS: Diagnosis Discharge Diagnosis (1) Supratherapeutic INR: Status: Resolved (2) Acute respiratory failure with hypoxia: Status: Resolved (3) Pneumonia due to 2019-nCoV: Status: Acute (4) Atrial fibrillation: Status: Acute DS: Summary Hospital Course Hospital Course: 65-year-old male with past medical history of AFib, GERD, HLD, HTN, PVD, RA, JENNIFER, presents to the hospital with complaints of shortness of breath, cough,? sputum production, fever, for the past 1 week.? Reports that initially started with shortness of breath better with ago but has developed worsening cough for the past 2-3 days.? Use also short of breath at rest, he denies having any chest pain, no abdominal pain nausea or vomiting, no diarrhea constipation, no urinary symptoms and no lower extremity edema due had no loss of appetite taste or smell.? Patient reports that he is vaccinated against COVID, last booster shot taking on 12/31. ?on arrival to the ED patient noted to be hypoxic with an O2 level of 75% on room air, fever of 101.3, respiratory rate of 30 Labs are significant for? WBC count of 7.0, hemoglobin of 14.9, hematocrit 43.0, PT of 27.4, INR of 2.4, pH of 7.54, high sensitivity troponin of 80.7 that decreased to 79.3, COVID-19 positive.? EKG shows AFib right bundle-branch block, with Q-waves were not present in previous EKG Hospital course Patient admitted to telemetry; treated with IV dexamethasone, Pepcid and supplemental O2. His hospital course was protracted and compound did by labile INR and O2 requirement. His AFib remained well controlled throughout his hospitalization. On the day of discharge he was screened by respiratory therapy and found to need 3-4 L of O2 continuously. Time Spent with Patient Time attestation: Total time spent providing and/or coordinating discharge services: Discharge coordination time: Greater than 30 minutes Quality: Stroke Does the patient have a stroke diagnosis?: No Physical Exam Vital Signs: Vital Signs: Last Vital Signs Temp 98 F 02/18/21 11:10 Pulse 73 02/18/21 11:10 Resp 24 H 02/18/21 11:10 BP 133/73 02/18/21 11:10 Pulse Ox 92 02/18/21 11:10 BMI result Body Mass Index 32.5 Const: Other: awake alert; able to speak in full sentences; up in chair Resp: Other: diminished throughout with diffuse expiratory wheezes at bases. Bilateral basilar crackl Cardio: Other: no S4; positive S1-S2; no S3 murmurs rubs gallops Extrem: Other: no edema bilaterally DS: Data Data Completed and Pending Labs on day of discharge: Laboratory Results - last 24 hr 02/18/21 02/18/21 02/18/21 06:29 06:29 06:29 WBC 15.0 H RBC 4.06 L Hgb 13.5 L Hct 41.4 L MCV 102.0 H MCH 33.3 H MCHC 32.6 RDW 14.7 Plt Count 175 MPV 10.4 Immature Gran % (Auto) 3.0 H Neut % (Auto) 75.6 H Lymph % (Auto) 14.0 L [place] % (Auto) 6.4 Eos % (Auto) 0.7 Baso % (Auto) 0.3 Lymph # (Auto) 2.1 [place] # (Auto) 1.0 Eos # (Auto) 0.1 Baso # (Auto) 0.0 Abs Immat Gran (auto) 0.45 H Absolute Neuts (auto) 11.4 H Absolute Nucleated RBC 0.000 Nucleated RBC % (auto) 0.0 PT 19.4 H INR 1.7 H Sodium 142 Potassium 4.7 D Chloride 106 Carbon Dioxide 28 Anion Gap 13 BUN 14 Creatinine 0.66 Estim Creat Clear Calc 152.4 Estimated GFR > 60 Fasting Glucose 93 Calcium 8.7 Total Bilirubin 0.8 AST 24 ALT 41 H Alkaline Phosphatase 51 Total Protein 5.8 L Albumin 3.3 L Discharge Plan Discharge Patient Disposition: Home Health Service Discharge Diagnosis: Covid 19 pneumonia Referrals: Po,Los Kim MD [Primary Care Provider] - 1 Week Discharge Medications: Continued Anoro Ellipta 62.5-25 mcg/actuation blister with device 1 ea PO DAILY 90 Days Qty: 3 3RF lisinopril 5 mg tablet 5 mg PO DAILY Qty: 90 3RF Discontinued methotrexate sodium 2.5 mg tablet 20 mg PO QWEEK Qty: 32 2RF Rx Instructions: on wednesday No Action ipratropium-albuterol 0.5 mg-3 mg(2.5 mg base)/3 mL solution for nebulization 3 ml inhalation Q4-6H PRN (Reason: wheezing) 30 Days Qty: 270 6RF diltiazem HCl 180 mg capsule,extended release 24hr 180 mg PO DAILY Qty: 90 3RF pravastatin 20 mg tablet 20 mg PO DAILY Qty: 90 3RF omeprazole 20 mg capsule,delayed release(DR/EC) 20 mg PO DAILY Qty: 90 3RF bumetanide 2 mg tablet 2 mg PO DAILY Qty: 90 2RF Humira(CF) Pen 40 mg/0.4 mL pen injector kit See Rx Instructions subcut .COMPLEX Qty: 2 2RF Rx Instructions: inject one - 40 mg/0.4 mL pen every 2 weeks subcut albuterol sulfate 90 mcg/actuation HFA aerosol inhaler 2 puff inhalation Q4-6H PRN (Reason: shortness of breath or wheezing) 90 Days Qty: 1 4RF folic acid 1 mg tablet 3 mg PO DAILY 90 Days Qty: 270 3RF (DME) CPAP See Rx Instructions .Route .MEDSUPPLY Qty: 1 0RF Rx Instructions: As directed acetaminophen [Tylenol Extra Strength] 500 mg tablet 500 mg PO DAILY PRN warfarin 5 mg tablet 5 mg PO DAILY Protocol: Dose Management Condition: Wednesday (Week One) Dose/Route: 5 mg Instruction: 1 x 5 mg tablet Condition: Wednesday Dose/Route: 7.5 mg Instruction: 1.5 x 5 mg tablets Condition: Wednesday Dose/Route: 5 mg Instruction: 1 x 5 mg tablet Condition: Wednesday Dose/Route: 5 mg Instruction: 1 x 5 mg tablet Condition: Dose/Route: 7.5 mg Instruction: 1.5 x 5 mg tablets Condition: Wednesday Dose/Route: 5 mg Instruction: 1 x 5 mg tablet Condition: Wednesday Dose/Route: 5 mg Instruction: 1 x 5 mg tablet Condition: Wednesday (Week Two) Dose/Route: 5 mg Instruction: 1 x 5 mg tablet Condition: Wednesday Dose/Route: 7.5 mg Instruction: 1.5 x 5 mg tablets Condition: Wednesday Dose/Route: 5 mg Instruction: 1 x 5 mg tablet Condition: Wednesday Dose/Route: 5 mg Instruction: 1 x 5 mg tablet Condition: Dose/Route: 7.5 mg Instruction: 1.5 x 5 mg tablets Condition: Wednesday Dose/Route: 5 mg Instruction: 1 x 5 mg tablet Condition: Wednesday Dose/Route: 5 mg Instruction: 1 x 5 mg tablet Protocol Text: Adjustment Start Date: Wednesday08/27/21 INR Value: 2.5 INR Date: 08/27/21 Recheck Date: 09/10/21 Additional Instructions: cont prev dosing methotrexate sodium 2.5 mg tablet 15 mg PO QWEEK Qty: 24 1RF Rx Instructions: take 6 tabs by mouth weekly. cholecalciferol (vitamin D3) 25 mcg (1,000 unit) capsule 25 mcg PO DAILY vitamin b12 PO DAILY ascorbic acid (vitamin C) 500 mg capsule 1,000 mg PO Discharge Orders: Discharge Order (Routine); Ordered 02/18/21 Ordered By: Marcus Olivo Diet: Advance to usual diet Activity on Discharge: As tolerated Stand Alone Forms: Patient Portal Discharge page Care Plan Goals: meds as ordered Health Concerns: taper activity to maintain sats greater equal to 92% Plan of Treatment: as outlined Assessment: as above Discharge Date/Time: 02/18/21 17:37
[2021-02-18 15:30] VITALS: BP 158/74; PULSE 81; RESP 18; TEMP 36.6; O2SAT 93
--- NOTE | 2021-02-18 16:11 | MHC.CM.PN ---
IMM 02/18/21 Male DX Covid+ He is discharged home with services. [facility] will provide services. The pt has arranged for his son to provide transportation.
[2021-02-18] MEDS: Warfarin Sodium 3 MG TABLET PO (17:26)
[2021-02-18] MEDS: hydrOXYzine HCL 25 MG TABLET PO (17:27)
== END 2021-02-18 17:37 | disposition home health service (06) | DRG 177 ==
LOC: HO.ED 16:25 → HO.EDOVER 21:42 → HO.IMC 02-03 14:50
PROVIDERS: Emergency Medicine; Family Medicine; Internal Medicine; Nurse Practitioner Acute Care; Admitting Provider Internal Medicine; Emergency Provider Emergency Medicine Emergency Medical Services; PCP Internal Medicine; Visit Provider Hospitalist
DX: U07.1 COVID-19 (principal); J12.82 Pneumonia due to coronavirus disease 2019; J96.01 Acute respiratory failure with hypoxia; I48.20 Chronic atrial fibrillation, unspecified; M06.00 Rheumatoid arthritis without rheumatoid factor, unspecified site; G47.33 Obstructive sleep apnea (adult) (pediatric); E78.5 Hyperlipidemia, unspecified; F17.210 Nicotine dependence, cigarettes, uncomplicated; Z71.6 Tobacco abuse counseling; R79.1 Abnormal coagulation profile; K21.9 Gastro-esophageal reflux disease without esophagitis; I45.10 Unspecified right bundle-branch block; Z99.89 Dependence on other enabling machines and devices; Z88.0 Allergy status to penicillin; Z79.01 Long term (current) use of anticoagulants; Z79.899 Other long term (current) drug therapy
CPT/HCPCS: 0241U; 36415; 36600; 71045; 80048; 80053; 82077; 82803; 83605; 83735; 83880; 84484; 85007; 85025; 85027; 85610; 85730; 86140; 87040; 93005; 96365; 96367; 96375; 99285; 99291; 99292; J0456; J0696; J1100; J1170; J2270

== ENCOUNTER → 2021-02-19 09:32 | Outpatient (BNVA) | payer MEDICARE, MEDICAID, SELFPAY | PROVIDERS: PCP Internal Medicine; Visit Provider Internal Medicine | DX: I48.11 Longstanding persistent atrial fibrillation (principal); Z51.81 Encounter for therapeutic drug level monitoring; Z79.01 Long term (current) use of anticoagulants | CPT/HCPCS: Q3014 ==

== ENCOUNTER → 2021-02-20 12:02 | Outpatient (BNVA) | payer MEDICARE, MEDICAID, SELFPAY | PROVIDERS: PCP Internal Medicine; Visit Provider Internal Medicine | DX: Z13.89 Encounter for screening for other disorder (principal) | CPT/HCPCS: Q3014 ==

== ENCOUNTER → 2021-02-24 13:40 | Outpatient (BNVA) | payer MEDICARE, MEDICAID, SELFPAY | PROVIDERS: PCP Internal Medicine; Visit Provider Internal Medicine | DX: I48.11 Longstanding persistent atrial fibrillation (principal) | CPT/HCPCS: Q3014 ==

== ENCOUNTER → 2021-02-27 15:42 | Outpatient (BNVA) | payer MEDICARE, MEDICAID, SELFPAY | PROVIDERS: PCP Internal Medicine; Visit Provider Internal Medicine | DX: I48.11 Longstanding persistent atrial fibrillation (principal) | CPT/HCPCS: Q3014 ==

== ENCOUNTER 2021-02-27 17:02 | Emergency (ER) | payer MEDICARE, MEDICAID, SELFPAY ==
--- NOTE | ~2021-02-27 | XR_ITS ---
EXAMINATION: XR CHEST CLINICAL INFORMATION: Shortness of breath. Decreased breath sounds. COMPARISON: 02/27/2021 TECHNIQUE: Frontal view of the chest was obtained. FINDINGS: Patchy bilateral airspace opacities are again noted, more pronounced in the left midlung and left lung base. Groundglass opacities have improved. Pleural effusion or pneumothorax. Lung volumes are normal. Cardiac silhouette is within normal limits in size. No acute osseous findings. Degenerative spondylosis in the thoracic spine. XR/XR chest 1V IMPRESSION: Patchy multifocal airspace consolidation, more pronounced in the left midlung and left lung base as compared to prior. Groundglass opacities are improved as compared to 02/17/2021.
[2021-02-27 17:14] VITALS: BP 117/57; PULSE 70; RESP 16; O2SAT 94; BMI 29.9
--- NOTE | 2021-02-27 17:30 | ECG_ITS ---
Test Reason : dyspnea Blood Pressure : / mmHG Vent. Rate : 051 BPM Atrial Rate : 000 BPM P-R Int : 000 ms QRS Dur : 128 ms QT Int : 460 ms P-R-T Axes : 000 -58 -02 degrees QTc Int : 423 ms Atrial fibrillation with slow ventricular response Right bundle branch block Left anterior fascicular block Bifascicular block Abnormal ECG When compared with ECG of 02-FEB-2021 17:23, No significant change was found Referred By: Oleksandr Jett Electronically Signed By:Jimmy Hutchinson
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
[2021-02-27 18:30] LABS: MANUAL DIFF FLAG NO
[2021-02-27 18:32] LABS: Basophils Percent Auto 0.1 % (0-2); Eosinophils Percent Auto 0.3 % (0-4); Hematocrit 37.2 % (42.0-52.0); Hemoglobin 12.4 g/dl (14.0-18.0); Imm Gran Abs Auto 0.15 X10*3/uL (0.00-0.03); Imm Gran Pct Auto 1.3 % (0.0-0.4); Lymphocytes Absolute Auto 0.8 X10*3/uL (1.2-4.9); Lymphocytes Percent Auto 6.6 % (20-40); Mean Corpuscular HGB Conc 33.3 g/dl (31.0-36.0); Mean Corpuscular Volume 105.1 fL (80.0-98.0); Mean Platelet Volume 9.6 fL (9.4-12.4); Monocytes Absolute Auto 0.3 X10*3/uL (0.1-1.2); Monocytes Percent Auto 2.8 % (2-11); Neutrophils Absolute Auto 10.5 x10*3/uL (2.0-8.3); Neutrophils Percent Auto 88.9 % (45-73); Platelet Count 147 X10*3/uL (160-400); Red Blood Count 3.54 X10*6/uL (4.60-5.80); Red Cell Distribution Width 15.8 % (11.0-16.0); White Blood Count 11.8 X10*3/uL (4.8-10.8)
[2021-02-27 18:36] LABS: INTERNATIONAL NORM RATIO 2.7 (0.9-1.1); Prothrombin Time 31.5 SEC (9.9-13.0)
[2021-02-27 18:38] LABS: Partial Thromboplastin Time 51.6 SEC (24.1-38.0)
[2021-02-27] MEDS: Bacitracin Oint 0.9 GM PACKET 1 APPL TOPICAL (18:41)
[2021-02-27] MEDS: methylPREDNISolone Sod Succ 125 MG/2 ML VIAL IVPUSH (18:41)
[2021-02-27 18:43] LABS: Lactic Acid 1.6 mmol/L (0.5-2.0)
[2021-02-27 18:47] LABS: COVID-19 Test Negative (Negative); IDNOW Serial# 9DD0AD1C
[2021-02-27 18:47] LABS: Alanine Aminotransferase 28 U/L (0-40); Albumin Level 3.6 g/dL (3.5-5.0); Alkaline Phosphatase 46 U/L (39-117); Anion Gap 10 (12-20); Aspartate Amino Transferase 13 U/L (5-37); Bilirubin Total 0.5 mg/dL (0.0-1.0); Blood Urea Nitrogen 19 mg/dL (9-16); Calcium 8.6 mg/dL (8.4-10.2); Carbon Dioxide 38 mmol/L (22-29); Chloride 96 mmol/L (96-108); Creatinine Clr Calc Pharmacy 129.1; Estimated Glomerular Filt Rate > 60; Glucose Random 149 mg/dL (60-115); Lipase 11 U/L (8-78); Potassium 4.1 mmol/L (3.3-5.1); Sodium 140 mmol/L (135-145); Total Protein 5.9 g/dL (6.5-8.0)
[2021-02-27 18:49] LABS: Ethanol < 10 mg/dL
[2021-02-27 18:51] LABS: B Type Natriuretic Peptide 77 pg/mL (<100)
[2021-02-27 18:53] LABS: D Dimer High Sensitivity 1867 NG/ML
[2021-02-27 19:35] VITALS: BP 106/61; PULSE 55; RESP 11; TEMP 36.6; O2SAT 97
--- NOTE | 2021-02-27 19:37 | PC.NURSE ---
pt a&o, denies increase sob, medicated pt per mar. call mcdonough at the bedside. Will continue to monitor.
--- NOTE | 2021-02-27 19:46 | PC.NURSE ---
notified provider of heart rate in 40's to 60's. Will continue per provider. no new orders at this time.
--- NOTE | 2021-02-27 19:48 | PC.NURSE ---
pt is able to speak in full sentence, no retractions doing breathing. pt reset bed. applied facial cream per order.
[2021-02-27 19:52] LABS: Procalcitonin 0.07 ng/mL
[2021-02-27 20:06] LABS: Appearance Urine CLEAR; Color Urine YELLOW; Glucose Urine UA NEG (NEG); Leukocyte Esterase Urine NEG (NEG); Nitrite Urine NEG (NEG); PH 6.5 (5.0-8.0); Specific Gravity - Urine 1.015 (1.005-1.025); Urine Blood NEG (NEG); Urine Ketones NEG (NEG); Urine Protein NEG (NEG-TRACE)
[2021-02-27 20:25] LABS: Amphetamine Screen Urine Not Detected (Not Detect); Barbiturates, Urine Not Detected (Not Detect); Benzodiazepines Screen Urine Not Detected (Not Detect); Cannabinoid Screen Urine POSITIVE (Not Detect); Cocaine Screen Urine Not Detected (Not Detect); Fentanyl, urine Not Detected (Not Detect); Opiate Screen Urine Not Detected (Not Detect); Phencyclidine Screen Urine Not Detected (Not Detect)
--- NOTE | 2021-02-27 20:29 | PC.NURSE ---
pt to son ingrid to give update. Will have pt call son for update.
--- NOTE | 2021-02-27 21:49 | PC.NURSE ---
pts son came to pick him up. Did not have his home oxygen. Pts son sent home to retrieve. pt stable to be in waiting room with full oxygen tank
== END 2021-02-27 21:53 | disposition home or self-care (01) ==
PROVIDERS: Emergency Provider Emergency Medicine Emergency Medical Services
DX: J44.1 Chronic obstructive pulmonary disease with (acute) exacerbation (principal); R06.02 Shortness of breath; T20.24XA Burn of second degree of nose (septum), initial encounter; T31.0 Burns involving less than 10% of body surface; X08.8XXA Exposure to other specified smoke, fire and flames, initial encounter; Y93.9 Activity, unspecified; Y92.9 Unspecified place or not applicable; Y99.9 Unspecified external cause status; Z20.822 Contact with and (suspected) exposure to COVID-19; F17.210 Nicotine dependence, cigarettes, uncomplicated; Z71.6 Tobacco abuse counseling; Z79.899 Other long term (current) drug therapy
CPT/HCPCS: 36415; 71045; 80053; 80307; 81003; 82077; 83605; 83690; 83880; 84145; 84484; 85025; 85379; 85610; 85730; 87040; 87635; 93005; 96374; 99284; J2930

== ENCOUNTER → 2021-03-03 16:10 | Outpatient (BNVA) | payer MEDICARE, MEDICAID, SELFPAY | PROVIDERS: PCP Internal Medicine; Visit Provider Internal Medicine | DX: I48.11 Longstanding persistent atrial fibrillation (principal); Z51.81 Encounter for therapeutic drug level monitoring; Z79.01 Long term (current) use of anticoagulants | CPT/HCPCS: Q3014 ==

== ENCOUNTER 2021-03-05 08:48 | Outpatient (REF) | payer MEDICARE, MEDICAID, SELFPAY ==
--- NOTE | ~2021-03-05 | US_ITS ---
EXAMINATION: US VENOUS ULTRASOUND WITH DOPPLER LOWER EXTREMITY, RIGHT CLINICAL INFORMATION: Right leg pain and edema COMPARISON: March 23, 2019 and February 20, 2019 TECHNIQUE: Ultrasound of the deep veins is performed from the hip to the calf with compression sonography and color and pulse Doppler assessment. Spectral analysis with color-flow imaging is performed. FINDINGS: Within the deep venous system in the popliteal vein, peroneal veins, and posterior tibial veins there is echogenic material with diminished compressibility and prominence of the vein with no vascular flow noted within the popliteal vein and peroneal veins and with diminished flow seen within the posterior tibial veins. Edema is seen within the soft tissues. There is no significant popliteal fossa cyst. No popliteal artery aneurysm. There is lymphadenopathy present within the right inguinal region similar to prior study of March 23, 2019 with the largest lymph node being somewhat lobular measuring 4.4 x 1.2 x 3.0 cm in size. US/US venous duplex LE RT IMPRESSION: Acute deep venous thrombosis in the right popliteal vein, peroneal veins, and posterior tibial veins. Right inguinal lymphadenopathy. This critical result was discussed with Debbie Jordan at 10:20 AM on March 05, 2021 and it was ascertained that the content and urgency of the report was understood at the time of direct communication.
== END 2021-03-05 08:49 | disposition home or self-care (01) ==
LOC: HO.US 08:48
PROVIDERS: PCP Internal Medicine; Visit Provider Nurse Practitioner Family
DX: Z13.89 Encounter for screening for other disorder (principal)
CPT/HCPCS: 93971; 99212; Q3014

== ENCOUNTER 2021-03-05 10:39 | Emergency (ER) | payer MEDICARE, MEDICAID, SELFPAY ==
[2021-03-05 10:53] VITALS: BP 139/72; PULSE 75; RESP 18; TEMP 36.8; O2SAT 95; BMI 29.8
--- NOTE | 2021-03-05 12:27 | ED_ITS ---
HPI - Extremity Injury (Lower) General Chief Complaint: Extremity Injury, Lower Stated Complaint: PCC referral +DVT Time Seen by Provider: 03/05/21 12:06 Source: patient Mode of arrival: ambulatory Limitations: no limitations History of Present Illness HPI Narrative: Patient presents to the ED with right leg pain and swelling. Patient has COVID 19 was hospitalized x 2 weeks. He had his coumadin changed from 5 mg daily to [address] Olivo while here and at home. I called the coumadin clinic that showed his INR on the 03 of March that the patient was placed on prednisone and doxycycline and a dose adjustment was made for the last week. He decreased to 3 mg. I spoke with Cheryl at the clinic and we were in agreeement to place the patient back on coumadin 5 mg. 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 He is unsure why he is on coumadin. According to Cheryl from the coumadin clinic he is on coumadin for afib. Related Data Home Medications Medication Instructions Recorded Confirmed diltiazem HCl 180 mg 1 cap PO DAILY 02/03/21 03/05/21 capsule,extended release 24 hr gabapentin 300 mg capsule 1 cap PO DAILY 02/03/21 03/05/21 acetaminophen 500 mg tablet 500 mg PO DAILY tab 03/05/21 03/05/21 (Tylenol Extra Strength) bumetanide 2 mg tablet 2 mg PO DAILY 03/05/21 03/05/21 oxycodone 5 mg tablet 5 mg PO Q4H PRN tab 03/05/21 03/05/21 Previous Rx's Medication Instructions Recorded omeprazole 20 mg capsule,delayed 20 mg PO DAILY #90 cap 04/25/20 release pravastatin 20 mg tablet 20 mg PO DAILY #90 tab 04/25/20 albuterol sulfate 90 mcg/actuation 2 puff INHALATION Q4-6H PRN 90 05/16/20 aerosol inhaler Days #1 ea warfarin 5 mg tablet 5 mg PO DAILY 90 Days #110 tab 08/01/20 folic acid 1 mg tablet 3 mg PO DAILY #90 tab 09/05/20 Anoro Ellipta 62.5 mcg-25 1 ea PO DAILY 90 Days #3 ea NS 09/06/20 mcg/actuation powder for inhalation (umeclidinium-vilanterol) lisinopril 5 mg tablet 5 mg PO DAILY #90 tab 10/29/20 prednisone 10 mg tablet See Rx Instructions .ROUTE 02/18/21 .COMPLEX #45 tab warfarin 3 mg tablet (Jantoven) 3 mg PO DAILY@1800 #30 tab 02/18/21 bacitracin 500 unit/gram topical 1 appl TOPICAL BID 7 Days #28 g 02/27/21 ointment doxycycline hyclate 100 mg tablet 100 mg PO Q12H 7 Days #14 tab 02/27/21 prednisone 20 mg tablet 60 mg PO DAILY 5 Days #15 tab 02/27/21 Allergies Allergy/AdvReac Type Severity Reaction Status Date / Time Penicillins [PCN] Allergy Unknown UNKNOWN- Verified 03/05/21 10:53 RXN CHILD/? HIVES Review of Systems Review of Systems: Review of systems: General: Patient denies any fever chills recent illness or falls Musculoskeletal: Denies back pain or body aches or other injuries HEENT: denies headache, runny nose, ear pain Respiratory: denies shortness of breath, cough Cardiovascular: no chest pain or palpitations : denies dysuria, frequency Abdomen: no nausea vomiting denies abdominal pain Extremities: 3+ swelling bilaterally, right leg pain Skin: no diaphoresis Yes all other systems are reviewed and are negative PMFSH Past Medical History Medical History Atrial fibrillation Cor pulmonale (chronic) Current use of anticoagulant therapy GERD (gastroesophageal reflux disease) Hemothorax History of cardioversion Hypercholesterolemia Hypertension Impaired glucose tolerance Insomnia 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 Mother Rheumatoid arteritis Social History Social History Household Members: Significant Other Housing: Apartment Do you presently have visiting nurse or other home services: No Alcohol intake: current Alcohol intake frequency: does not drink Alcohol type: beer and hard liquor Patient Tobacco Use Status: Current everyday Tobacco user Tobacco use type: Cigarette Years Smoked: 49 years e-Cigarette/Vaping Use: Never Used Second Hand Smoke Exposure: No Substance Use Type: Marijuana service: No Current occupational status: retired Cognitive needs: No Hearing needs: No Vision needs: No Physical Exam Vital Signs: Vital Signs: Last Vital Signs Temp 98.3 F 03/05/21 10:53 Pulse 75 03/05/21 10:53 Resp 18 03/05/21 10:53 BP 139/72 03/05/21 10:53 Pulse Ox 95 03/05/21 10:53 Oxygen Flow Rate 2 03/05/21 10:53 BMI result Body Mass Index 29.8 General: Well-appearing well-nourished in no signs of distress HEENT: Normocephalic atraumatic Neck: No signs of JVD, no masses no tenderness or lymphadenopathy Cardiovascular: Regular rate and rhythm Respiratory: Clear to auscultation bilaterally Abdomen: Soft nontender no masses Extremities: Normal pedal pulses 3+ edema from ankle to mid fuller bilaterally no tenderness to palpation no signs of infection no redness or induration of either leg. Skin: Dry warm no rashes Back: No tenderness full ROM MDM - Extremity Injury (Lower) MDM Narrative Medical decision making narrative: 66-year-old male with DVT to the right leg he denies having history of a DVT in the past this is likely related to being on doxycycline and prednisone as well as lowering his dose of his Coumadin. Patient is on Coumadin for atrial fibrillation I will restart the patient on 5 mg daily and have patient follow-up with his Coumadin clinic. Discharge Plan Discharge Clinical Impression: Acute deep vein thrombosis (DVT) of right lower extremity Patient Disposition: Home, Self-Care Instructions: Deep Vein Thrombosis (ED) Additional Instructions: Please go back to 5 mg daily if have worsening pain worsening shortness of breath or any other concerns please do not hesitate to come back to emergency department. Prescriptions: No Action pravastatin 20 mg tablet 20 mg PO DAILY Qty: 90 RF: 3 omeprazole 20 mg capsule,delayed release(DR/EC) 20 mg PO DAILY Qty: 90 RF: 3 warfarin 5 mg tablet 5 mg PO DAILY 90 Days Qty: 110 RF: 3 folic acid 1 mg tablet 3 mg PO DAILY Qty: 90 RF: 5 Anoro Ellipta 62.5-25 mcg/actuation blister with device 1 ea PO DAILY 90 Days Qty: 3 RF: 3 lisinopril 5 mg tablet 5 mg PO DAILY Qty: 90 RF: 3 gabapentin 300 mg capsule 1 cap PO DAILY RF: 0 diltiazem HCl 180 mg capsule,extended release 24hr 1 cap PO DAILY RF: 0 warfarin [Jantoven] 3 mg Tablet 3 mg PO DAILY@1800 Qty: 30 RF: 0 prednisone 10 mg tablet See Rx Instructions .Route .COMPLEX Qty: 45 RF: 0 bumetanide 2 mg tablet 2 mg PO DAILY RF: 0 prednisone 20 mg tablet 60 mg PO DAILY 5 Days Qty: 15 RF: 0 bacitracin 500 unit/gram ointment 1 appl topical BID 7 Days Qty: 28 RF: 0 doxycycline hyclate 100 mg tablet 100 mg PO Q12H 7 Days Qty: 14 RF: 0 albuterol sulfate 90 mcg/actuation HFA aerosol inhaler 2 puff inhalation Q4-6H PRN (Reason: shortness of breath or wheezing) 90 Days Qty: 1 RF: 4 oxycodone 5 mg tablet 5 mg PO Q4H PRN (Reason: Pain, Moderate (Pain Scale 4-6) RF: 0 acetaminophen [Tylenol Extra Strength] 500 mg tablet 500 mg PO DAILY RF: 0
[2021-03-05 12:28] LABS: COVID-19 Test Negative (Negative); IDNOW Serial# 9DD0AD1C
== END 2021-03-05 12:59 | disposition home or self-care (01) ==
LOC: HO.ED 12:47
PROVIDERS: Emergency Provider Student in an Organized Health Care Education/Training Program
DX: I82.401 Acute embolism and thrombosis of unspecified deep veins of right lower extremity (principal); M06.00 Rheumatoid arthritis without rheumatoid factor, unspecified site; G62.9 Polyneuropathy, unspecified; I10 Essential (primary) hypertension; I48.19 Other persistent atrial fibrillation; J44.9 Chronic obstructive pulmonary disease, unspecified; Z51.81 Encounter for therapeutic drug level monitoring; Z79.01 Long term (current) use of anticoagulants; Z79.899 Other long term (current) drug therapy; Z20.822 Contact with and (suspected) exposure to COVID-19
CPT/HCPCS: 87635; 93971; 99212; 99282; 99283; 99284; Q3014

== ENCOUNTER → 2021-03-07 10:33 | Outpatient (BNVA) | payer MEDICARE, MEDICAID, SELFPAY | PROVIDERS: PCP Internal Medicine; Visit Provider Internal Medicine | DX: I48.11 Longstanding persistent atrial fibrillation (principal); Z51.81 Encounter for therapeutic drug level monitoring; Z79.01 Long term (current) use of anticoagulants | CPT/HCPCS: Q3014 ==

== ENCOUNTER → 2021-03-13 11:05 | Outpatient (BNVA) | payer MEDICARE, MEDICAID, SELFPAY | PROVIDERS: PCP Internal Medicine; Visit Provider Internal Medicine Pulmonary Disease | DX: J44.9 Chronic obstructive pulmonary disease, unspecified (principal); G47.33 Obstructive sleep apnea (adult) (pediatric); U09.9 Post COVID-19 condition, unspecified; R06.00 Dyspnea, unspecified; Z99.81 Dependence on supplemental oxygen | CPT/HCPCS: 85610; 99211; 99212 ==

== ENCOUNTER → 2021-03-19 11:03 | Outpatient (BNVA) | payer MEDICARE, MEDICAID, SELFPAY | PROVIDERS: PCP Internal Medicine; Visit Provider Internal Medicine ==

== ENCOUNTER → 2021-03-26 12:12 | Outpatient (BNVA) | payer MEDICARE, MEDICAID, SELFPAY | PROVIDERS: PCP Internal Medicine; Visit Provider Internal Medicine ==

== ENCOUNTER → 2021-04-02 11:14 | Outpatient (BNVA) | payer MEDICARE, MEDICAID, SELFPAY | PROVIDERS: PCP Internal Medicine; Visit Provider Internal Medicine | DX: Z13.89 Encounter for screening for other disorder (principal) ==

== ENCOUNTER → 2021-04-16 12:34 | Outpatient (BNVA) | payer MEDICARE, MEDICAID, SELFPAY | PROVIDERS: PCP Internal Medicine; Visit Provider Internal Medicine | DX: Z13.89 Encounter for screening for other disorder (principal) ==

== ENCOUNTER → 2021-04-30 10:50 | Outpatient (BNVA) | payer MEDICARE, MEDICAID, SELFPAY | PROVIDERS: PCP Internal Medicine; Visit Provider Internal Medicine | DX: I48.11 Longstanding persistent atrial fibrillation (principal) | CPT/HCPCS: Q3014 ==

== ENCOUNTER → 2021-05-01 12:42 | Outpatient (BNVA) | payer MEDICARE, MEDICAID, SELFPAY | PROVIDERS: PCP Internal Medicine; Visit Provider Nurse Practitioner Family | DX: M06.00 Rheumatoid arthritis without rheumatoid factor, unspecified site (principal); I82.431 Acute embolism and thrombosis of right popliteal vein; I82.451 Acute embolism and thrombosis of right peroneal vein; I82.441 Acute embolism and thrombosis of right tibial vein; I73.9 Peripheral vascular disease, unspecified; J44.9 Chronic obstructive pulmonary disease, unspecified; I27.81 Cor pulmonale (chronic); I48.19 Other persistent atrial fibrillation; G47.33 Obstructive sleep apnea (adult) (pediatric); I10 Essential (primary) hypertension; E78.00 Pure hypercholesterolemia, unspecified; E55.9 Vitamin D deficiency, unspecified; Z87.891 Personal history of nicotine dependence; Z98.890 Other specified postprocedural states; Z88.0 Allergy status to penicillin; Z99.81 Dependence on supplemental oxygen; Z79.01 Long term (current) use of anticoagulants; Z79.899 Other long term (current) drug therapy | CPT/HCPCS: 99212 ==

== ENCOUNTER 2021-05-06 09:53 | Outpatient (REF) | payer MEDICARE, MEDICAID, SELFPAY ==
[2021-05-06 10:14] LABS: MANUAL DIFF FLAG NO
[2021-05-06 10:44] LABS: Basophils Percent Auto 0.5 % (0-2); Eosinophils Absolute Auto 0.2 X10*3/uL (0.0-0.4); Eosinophils Percent Auto 2.3 % (0-4); Hematocrit 44.4 % (42.0-52.0); Hemoglobin 14.3 g/dl (14.0-18.0); Imm Gran Abs Auto 0.04 X10*3/uL (0.00-0.03); Imm Gran Pct Auto 0.5 % (0.0-0.4); Lymphocytes Absolute Auto 2.4 X10*3/uL (1.2-4.9); Lymphocytes Percent Auto 28.9 % (20-40); Mean Corpuscular HGB Conc 32.2 g/dl (31.0-36.0); Mean Corpuscular Hemoglobin 32.6 pg (27.0-33.0); Mean Corpuscular Volume 101.1 fL (80.0-98.0); Monocytes Absolute Auto 0.6 X10*3/uL (0.1-1.2); Monocytes Percent Auto 7.1 % (2-11); Neutrophils Absolute Auto 5.1 x10*3/uL (2.0-8.3); Neutrophils Percent Auto 60.7 % (45-73); Platelet Count 266 X10*3/uL (160-400); Red Blood Count 4.39 X10*6/uL (4.60-5.80); White Blood Count 8.4 X10*3/uL (4.8-10.8)
[2021-05-06 11:12] LABS: B Type Natriuretic Peptide 88 pg/mL (<100)
[2021-05-06 11:19] LABS: Alanine Aminotransferase 15 U/L (0-40); Albumin Level 4.4 g/dL (3.5-5.0); Alkaline Phosphatase 49 U/L (39-117); Anion Gap 12 (12-20); Aspartate Amino Transferase 16 U/L (5-37); Bilirubin Total 0.5 mg/dL (0.0-1.0); Blood Urea Nitrogen 13 mg/dL (9-16); C Reactive Protein 0.72 mg/dL (< or = 0.50); Calcium 9.9 mg/dL (8.4-10.2); Carbon Dioxide 32 mmol/L (22-29); Chloride 103 mmol/L (96-108); Estimated Glomerular Filt Rate > 60; Glucose Random 93 mg/dL (60-115); Potassium 4.3 mmol/L (3.3-5.1); Sodium 143 mmol/L (135-145); Total Protein 6.9 g/dL (6.5-8.0)
[2021-05-06 11:24] LABS: Erythrocyte Sedimentation Rate 7 MM/HR (0-15)
== END 2021-05-06 09:54 | disposition home or self-care (01) ==
LOC: HO.LAB 09:53
PROVIDERS: Absent Provider Internal Medicine; PCP Internal Medicine; Visit Provider Nurse Practitioner Family
DX: I48.19 Other persistent atrial fibrillation (principal); M06.00 Rheumatoid arthritis without rheumatoid factor, unspecified site
CPT/HCPCS: 36415; 80053; 83880; 85025; 85652; 86140

== ENCOUNTER → 2021-05-07 09:40 | Outpatient (BNVA) | payer MEDICARE, MEDICAID, SELFPAY | PROVIDERS: PCP Internal Medicine; Visit Provider Internal Medicine | DX: Z13.89 Encounter for screening for other disorder (principal) ==

== ENCOUNTER → 2021-05-14 09:05 | Outpatient (BNVA) | payer MEDICARE, MEDICAID, SELFPAY | PROVIDERS: PCP Internal Medicine; Visit Provider Internal Medicine | DX: I48.19 Other persistent atrial fibrillation (principal); Z79.01 Long term (current) use of anticoagulants; Z51.81 Encounter for therapeutic drug level monitoring | CPT/HCPCS: Q3014 ==

== ENCOUNTER → 2021-05-21 10:10 | Outpatient (BNVA) | payer MEDICARE, MEDICAID, SELFPAY | PROVIDERS: PCP Internal Medicine; Visit Provider Internal Medicine | DX: I48.11 Longstanding persistent atrial fibrillation (principal); Z51.81 Encounter for therapeutic drug level monitoring; Z79.01 Long term (current) use of anticoagulants | CPT/HCPCS: Q3014 ==

== ENCOUNTER → 2021-05-28 09:12 | Outpatient (BNVA) | payer MEDICARE, MEDICAID, SELFPAY | PROVIDERS: PCP Internal Medicine; Visit Provider Internal Medicine | DX: Z13.89 Encounter for screening for other disorder (principal) ==

== ENCOUNTER → 2021-06-02 10:23 | Outpatient (BNVA) | payer MEDICARE, MEDICAID, SELFPAY | PROVIDERS: PCP Internal Medicine; Visit Provider Nurse Practitioner Family | DX: M06.00 Rheumatoid arthritis without rheumatoid factor, unspecified site (principal); M79.89 Other specified soft tissue disorders; M79.671 Pain in right foot; M79.672 Pain in left foot; G63 Polyneuropathy in diseases classified elsewhere; Z79.899 Other long term (current) drug therapy | CPT/HCPCS: 99212 ==

== ENCOUNTER → 2021-06-04 12:01 | Outpatient (BNVA) | payer MEDICARE, MEDICAID, SELFPAY | PROVIDERS: PCP Internal Medicine; Visit Provider Internal Medicine | DX: Z13.89 Encounter for screening for other disorder (principal) ==

== ENCOUNTER → 2021-06-06 09:55 | Outpatient (BNVA) | payer MEDICARE, MEDICAID, SELFPAY | PROVIDERS: PCP Internal Medicine; Visit Provider Internal Medicine Pulmonary Disease | DX: J44.9 Chronic obstructive pulmonary disease, unspecified (principal); G47.33 Obstructive sleep apnea (adult) (pediatric) | CPT/HCPCS: 99212 ==

== ENCOUNTER → 2021-06-11 10:35 | Outpatient (BNVA) | payer MEDICARE, MEDICAID, SELFPAY | PROVIDERS: PCP Internal Medicine; Visit Provider Internal Medicine | DX: Z13.89 Encounter for screening for other disorder (principal) ==

== ENCOUNTER → 2021-06-25 11:07 | Outpatient (BNVA) | payer MEDICARE, MEDICAID, SELFPAY | PROVIDERS: PCP Internal Medicine; Visit Provider Internal Medicine | DX: I48.19 Other persistent atrial fibrillation (principal); Z79.01 Long term (current) use of anticoagulants; Z51.81 Encounter for therapeutic drug level monitoring | CPT/HCPCS: Q3014 ==

== ENCOUNTER → 2021-07-02 14:35 | Outpatient (BNVA) | payer MEDICARE, MEDICAID, SELFPAY | PROVIDERS: PCP Internal Medicine; Visit Provider Internal Medicine | DX: I48.19 Other persistent atrial fibrillation (principal); Z79.01 Long term (current) use of anticoagulants; Z51.81 Encounter for therapeutic drug level monitoring | CPT/HCPCS: Q3014 ==

== ENCOUNTER → 2021-07-09 14:28 | Outpatient (BNVA) | payer MEDICARE, MEDICAID, SELFPAY | PROVIDERS: PCP Internal Medicine; Visit Provider Internal Medicine | DX: Z13.89 Encounter for screening for other disorder (principal) ==

== ENCOUNTER → 2021-07-15 09:11 | Outpatient (BNVA) | payer MEDICARE, MEDICAID, SELFPAY | PROVIDERS: PCP Internal Medicine; Visit Provider Internal Medicine Pulmonary Disease | DX: G47.33 Obstructive sleep apnea (adult) (pediatric) (principal); J44.9 Chronic obstructive pulmonary disease, unspecified | CPT/HCPCS: 99212 ==

== ENCOUNTER → 2021-07-16 10:45 | Outpatient (BNVA) | payer MEDICARE, MEDICAID, SELFPAY | PROVIDERS: PCP Internal Medicine; Visit Provider Internal Medicine | DX: Z13.89 Encounter for screening for other disorder (principal) ==

== ENCOUNTER → 2021-07-23 10:30 | Outpatient (BNVA) | payer MEDICARE, MEDICAID, SELFPAY | PROVIDERS: PCP Internal Medicine; Visit Provider Internal Medicine | DX: Z79.01 Long term (current) use of anticoagulants (principal) ==

== ENCOUNTER 2021-07-29 08:17 | Outpatient (REF) | payer MEDICARE, MEDICAID, SELFPAY ==
[2021-07-29 08:46] LABS: MANUAL DIFF FLAG NO
[2021-07-29 09:09] LABS: Basophils Percent Auto 0.5 % (0-2); Eosinophils Absolute Auto 0.1 X10*3/uL (0.0-0.4); Eosinophils Percent Auto 1.3 % (0-4); Hematocrit 42.2 % (42.0-52.0); Hemoglobin 13.9 g/dl (14.0-18.0); Imm Gran Abs Auto 0.05 X10*3/uL (0.00-0.03); Imm Gran Pct Auto 0.6 % (0.0-0.4); Lymphocytes Absolute Auto 1.8 X10*3/uL (1.2-4.9); Lymphocytes Percent Auto 21.8 % (20-40); Mean Corpuscular HGB Conc 32.9 g/dl (31.0-36.0); Mean Corpuscular Hemoglobin 32.3 pg (27.0-33.0); Mean Corpuscular Volume 98.1 fL (80.0-98.0); Mean Platelet Volume 9.4 fL (9.4-12.4); Monocytes Absolute Auto 0.7 X10*3/uL (0.1-1.2); Monocytes Percent Auto 8.3 % (2-11); Neutrophils Absolute Auto 5.6 x10*3/uL (2.0-8.3); Neutrophils Percent Auto 67.5 % (45-73); Platelet Count 275 X10*3/uL (160-400); Red Cell Distribution Width 14.7 % (11.0-16.0); White Blood Count 8.2 X10*3/uL (4.8-10.8)
[2021-07-29 09:38] LABS: Alanine Aminotransferase 18 U/L (0-40); Albumin Level 4.4 g/dL (3.5-5.0); Alkaline Phosphatase 51 U/L (39-117); Anion Gap 16 (12-20); Aspartate Amino Transferase 18 U/L (5-37); Bilirubin Total 0.6 mg/dL (0.0-1.0); Blood Urea Nitrogen 13 mg/dL (9-16); C Reactive Protein 1.85 mg/dL (< or = 0.50); Calcium 9.9 mg/dL (8.4-10.2); Carbon Dioxide 26 mmol/L (22-29); Chloride 104 mmol/L (96-108); Cholesterol 177 mg/dL; Estimated Glomerular Filt Rate > 60; Glucose Random 96 mg/dL (60-115); HDL Cholesterol 30 mg/dL; LDL Cholesterol Calculated 122 mg/dl; Potassium 4.6 mmol/L (3.3-5.1); Sodium 141 mmol/L (135-145); Triglycerides 127 mg/dL
[2021-07-29 09:45] LABS: B Type Natriuretic Peptide 68 pg/mL (<100)
[2021-07-29 09:55] LABS: Erythrocyte Sedimentation Rate 13 MM/HR (0-15)
[2021-07-29 10:02] LABS: Free T4 (Free Thyroxine) 1.05 ng/dL (0.71-1.85); Prostate Specific Antigen Scr 0.63 ng/mL (<0.05-4.0); Thyroid Stimulating Hormone 1.28 uIU/mL (0.32-4.0)
[2021-07-29 10:10] LABS: Folate > 20.0 ng/mL (> or = 4.0); Vitamin B12 757 pg/mL (200-900)
== END 2021-07-29 08:18 | disposition home or self-care (01) ==
LOC: HO.LAB 08:17
PROVIDERS: Absent Provider Internal Medicine; PCP Internal Medicine; Visit Provider Nurse Practitioner Family
DX: E78.00 Pure hypercholesterolemia, unspecified (principal); I48.19 Other persistent atrial fibrillation; I10 Essential (primary) hypertension; M06.00 Rheumatoid arthritis without rheumatoid factor, unspecified site; Z12.5 Encounter for screening for malignant neoplasm of prostate
CPT/HCPCS: 36415; 80053; 80061; 82607; 82746; 83880; 84153; 84439; 84443; 85025; 85652; 86140

== ENCOUNTER → 2021-08-01 08:18 | Outpatient (BNVA) | payer MEDICARE, MEDICAID, SELFPAY | PROVIDERS: PCP Internal Medicine; Visit Provider Nurse Practitioner Family | DX: M06.00 Rheumatoid arthritis without rheumatoid factor, unspecified site (principal); G63 Polyneuropathy in diseases classified elsewhere; M79.671 Pain in right foot; M79.672 Pain in left foot; Z86.718 Personal history of other venous thrombosis and embolism; Z79.01 Long term (current) use of anticoagulants; Z79.899 Other long term (current) drug therapy | CPT/HCPCS: 99212 ==

== ENCOUNTER 2021-08-26 08:18 | Outpatient (REF) | payer MEDICARE, MEDICAID, SELFPAY ==
[2021-08-26 08:49] LABS: MANUAL DIFF FLAG NO
[2021-08-26 08:57] LABS: Basophils Percent Auto 0.4 % (0-2); Eosinophils Absolute Auto 0.2 X10*3/uL (0.0-0.4); Eosinophils Percent Auto 2.4 % (0-4); Hematocrit 40.4 % (42.0-52.0); Hemoglobin 13.7 g/dl (14.0-18.0); Imm Gran Abs Auto 0.04 X10*3/uL (0.00-0.03); Imm Gran Pct Auto 0.5 % (0.0-0.4); Lymphocytes Absolute Auto 1.9 X10*3/uL (1.2-4.9); Lymphocytes Percent Auto 22.5 % (20-40); Mean Corpuscular HGB Conc 33.9 g/dl (31.0-36.0); Mean Corpuscular Hemoglobin 33.4 pg (27.0-33.0); Mean Corpuscular Volume 98.5 fL (80.0-98.0); Mean Platelet Volume 9.3 fL (9.4-12.4); Monocytes Absolute Auto 0.7 X10*3/uL (0.1-1.2); Monocytes Percent Auto 8.6 % (2-11); Neutrophils Absolute Auto 5.5 x10*3/uL (2.0-8.3); Neutrophils Percent Auto 65.6 % (45-73); Platelet Count 238 X10*3/uL (160-400); Red Cell Distribution Width 15.2 % (11.0-16.0); White Blood Count 8.4 X10*3/uL (4.8-10.8)
[2021-08-26 09:25] LABS: Alanine Aminotransferase 19 U/L (0-40); Albumin Level 4.4 g/dL (3.5-5.0); Alkaline Phosphatase 54 U/L (39-117); Anion Gap 15 (12-20); Aspartate Amino Transferase 21 U/L (5-37); Bilirubin Total 0.6 mg/dL (0.0-1.0); Blood Urea Nitrogen 16 mg/dL (9-16); C Reactive Protein 1.44 mg/dL (< or = 0.50); Calcium 9.2 mg/dL (8.4-10.2); Carbon Dioxide 28 mmol/L (22-29); Chloride 103 mmol/L (96-108); Estimated Glomerular Filt Rate > 60; Glucose Random 111 mg/dL (60-115); Potassium 4.6 mmol/L (3.3-5.1); Sodium 141 mmol/L (135-145); Total Protein 6.8 g/dL (6.5-8.0)
[2021-08-26 09:43] LABS: Erythrocyte Sedimentation Rate 10 MM/HR (0-15)
[2021-08-26 09:46] LABS: Prostate Specific Antigen Scr 0.47 ng/mL (<0.05-4.0)
== END 2021-08-26 08:19 | disposition home or self-care (01) ==
LOC: HO.LAB 08:18
PROVIDERS: PCP Internal Medicine; Visit Provider Nurse Practitioner Family
DX: Z12.5 Encounter for screening for malignant neoplasm of prostate (principal); I48.19 Other persistent atrial fibrillation; E78.00 Pure hypercholesterolemia, unspecified; M06.00 Rheumatoid arthritis without rheumatoid factor, unspecified site
CPT/HCPCS: 36415; 80053; 84153; 85025; 85652; 86140

== ENCOUNTER → 2021-09-10 11:45 | Outpatient (BNVA) | payer MEDICARE, MEDICAID, SELFPAY | PROVIDERS: PCP Internal Medicine; Visit Provider Internal Medicine | DX: I48.19 Other persistent atrial fibrillation (principal); Z79.01 Long term (current) use of anticoagulants; Z51.81 Encounter for therapeutic drug level monitoring | CPT/HCPCS: Q3014 ==

== ENCOUNTER → 2021-10-07 08:39 | Outpatient (BNVA) | payer MEDICARE, MEDICAID, SELFPAY | PROVIDERS: PCP Internal Medicine; Visit Provider Internal Medicine | DX: I48.19 Other persistent atrial fibrillation (principal); Z51.81 Encounter for therapeutic drug level monitoring; Z79.01 Long term (current) use of anticoagulants | CPT/HCPCS: 85610; 99211 ==

== ENCOUNTER 2021-10-20 12:39 | Outpatient (RCR) | payer MEDICARE, MEDICAID, SELFPAY ==
--- NOTE | ~2021-10-20 | XR_ITS ---
EXAMINATION: XR FOOT, RIGHT CLINICAL INFORMATION: Nonhealing wound. COMPARISON: None TECHNIQUE: AP, lateral, and oblique views of the right foot. FINDINGS: There is moderate loss of the 1st tarsometatarsal joint space with moderate osteophytosis. Also seen is mild tarsometatarsal dorsal spurring. There is partial amputation of the distal 3rd metatarsal head. No visible acute fracture or dislocation seen. Small calcaneal heel and retrocalcaneal enthesophytes are seen. The soft tissues are normal. XR/XR foot RT 2V IMPRESSION: Soft tissue gas or swelling seen. No bony erosive changes or periosteal thickening to suspect osteomyelitis. Degenerative changes 1st tarsometatarsal and dorsal intertarsal joints. There is partial resection of the distal 3rd metatarsal.
[2021-10-22 08:40] LABS: MANUAL DIFF FLAG NO
[2021-10-22 09:06] LABS: Basophils Absolute Auto 0.1 X10*3/uL (0.0-0.2); Basophils Percent Auto 0.8 % (0-2); Eosinophils Absolute Auto 0.4 X10*3/uL (0.0-0.4); Eosinophils Percent Auto 4.8 % (0-4); Hematocrit 42.7 % (42.0-52.0); Hemoglobin 14.4 g/dl (14.0-18.0); Imm Gran Abs Auto 0.06 X10*3/uL (0.00-0.03); Imm Gran Pct Auto 0.8 % (0.0-0.4); Lymphocytes Absolute Auto 1.7 X10*3/uL (1.2-4.9); Lymphocytes Percent Auto 21.8 % (20-40); Mean Corpuscular HGB Conc 33.7 g/dl (31.0-36.0); Mean Corpuscular Hemoglobin 33.5 pg (27.0-33.0); Mean Corpuscular Volume 99.3 fL (80.0-98.0); Mean Platelet Volume 9.3 fL (9.4-12.4); Monocytes Absolute Auto 0.8 X10*3/uL (0.1-1.2); Monocytes Percent Auto 10.2 % (2-11); Neutrophils Absolute Auto 4.9 x10*3/uL (2.0-8.3); Neutrophils Percent Auto 61.6 % (45-73); Platelet Count 242 X10*3/uL (160-400); Red Cell Distribution Width 15.4 % (11.0-16.0); White Blood Count 7.9 X10*3/uL (4.8-10.8)
[2021-10-22 09:14] LABS: Estimated Average Glucose 114 mg/dL; Hemoglobin A1c % 5.6 %
[2021-10-22 09:44] LABS: Anion Gap 14 (12-20); Blood Urea Nitrogen 13 mg/dL (9-16); C Reactive Protein 0.97 mg/dL (< or = 0.50); Calcium 9.6 mg/dL (8.4-10.2); Carbon Dioxide 27 mmol/L (22-29); Chloride 105 mmol/L (96-108); Estimated Glomerular Filt Rate > 60; Glucose Random 114 mg/dL (60-115); Potassium 4.4 mmol/L (3.3-5.1); Sodium 142 mmol/L (135-145)
[2021-10-22 10:36] LABS: Erythrocyte Sedimentation Rate 10 MM/HR (0-15)
== END 2021-11-19 12:31 | disposition home or self-care (01) ==
LOC: HO.WCC 12:39
PROVIDERS: PCP Internal Medicine; Visit Provider Physician Assistant
DX: L97.512 Non-pressure chronic ulcer of other part of right foot with fat layer exposed (principal); L84 Corns and callosities; R60.9 Edema, unspecified; I73.9 Peripheral vascular disease, unspecified; I10 Essential (primary) hypertension; J44.9 Chronic obstructive pulmonary disease, unspecified; I48.91 Unspecified atrial fibrillation; M05.50 Rheumatoid polyneuropathy with rheumatoid arthritis of unspecified site; Z87.891 Personal history of nicotine dependence; Z86.16 Personal history of COVID-19
CPT/HCPCS: 11042; 36415; 73620; 80048; 83036; 84134; 85025; 85652; 86140; 99212; 99213

== ENCOUNTER → 2021-10-22 09:17 | Outpatient (BNVA) | payer MEDICARE, MEDICAID, SELFPAY | PROVIDERS: PCP Internal Medicine; Visit Provider Internal Medicine | DX: I48.19 Other persistent atrial fibrillation (principal); Z79.01 Long term (current) use of anticoagulants; Z51.81 Encounter for therapeutic drug level monitoring | CPT/HCPCS: 85610; 99211 ==

== ENCOUNTER → 2021-10-27 07:56 | Outpatient (BNVA) | payer MEDICARE, MEDICAID, SELFPAY | PROVIDERS: PCP Internal Medicine; Referring Provider Internal Medicine; Visit Provider Internal Medicine | DX: I48.19 Other persistent atrial fibrillation (principal); I27.81 Cor pulmonale (chronic); I10 Essential (primary) hypertension; G47.33 Obstructive sleep apnea (adult) (pediatric) | CPT/HCPCS: 93005; 99212 ==

== ENCOUNTER 2021-10-29 08:16 | Day surgery (SDC) | payer MEDICARE, MEDICAID, SELFPAY ==
--- NOTE | 2021-10-28 10:32 | HO.ANESPROP2 ---
HPI - Anesthesia Eval Consult details Narrative: 66yo M for Colonoscopy Cardiac cleared at low risk. Coumadin for afib Methotrexate for RA PMFSH Active Problems Active Problems: All Active Problems (Updated 09/30/21 @ 11:25 by Los Jacques MD) Callous ulcer (Acute) Colon cancer screening (Acute) Right leg DVT (Acute) COVID-19 virus infection (Acute) Post covid-19 condition, unspecified (Acute) Hospital discharge follow-up (Acute) On home oxygen therapy (Acute) Moderate COPD (chronic obstructive pulmonary disease) (Acute) Hypoxia (Acute) Peripheral vascular disease (Acute) Plantar fasciitis of left foot (Acute) Current use of anticoagulant therapy (Acute) GERD (gastroesophageal reflux disease) (Acute) Impaired glucose tolerance (Acute) Hypercholesterolemia (Acute) Hypertension (Acute) Atrial fibrillation (Acute) Severe obstructive sleep apnea (Acute) Primary osteoarthritis of knees, bilateral (Acute) Seronegative rheumatoid arthritis (Acute) Past Medical History Medical History Atrial fibrillation Cor pulmonale (chronic) Current use of anticoagulant therapy GERD (gastroesophageal reflux disease) Hemothorax History of cardioversion Hypercholesterolemia Hypertension Impaired glucose tolerance 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 Mother Rheumatoid arteritis Other Mental health disorder Substance use disorder Surgical History Surgical History History of umbilical hernia repair Hx of tonsillectomy S/P emergency tracheotomy for assistance in breathing Social History Social History Household Members: Significant Other Housing: Apartment Do you presently have visiting nurse or other home services: No Alcohol intake: current Alcohol intake frequency: does not drink Alcohol type: beer and hard liquor Patient Tobacco Use Status: Former Tobacco user Tobacco use type: Cigarette Years Smoked: 49 e-Cigarette/Vaping Use: Never Used Second Hand Smoke Exposure: No Substance Use Type: Marijuana service: No Current occupational status: retired Cognitive needs: No Hearing needs: No Vision needs: No Meds Allergies Allergy/AdvReac Type Severity Reaction Status Date / Time Penicillins [PCN] Allergy Unknown UNKNOWN- Verified 11/04/21 19:06 RXN CHILD/? HIVES Active Medications: Current Medications Lactated Ringer's (Lr) 1,000 mls @ 50 mls/hr IVCONT .Q20H CARO Home Medications Medication Instructions Recorded Confirmed Last Taken Type ascorbic acid (vitamin C) 500 mg 1,000 mg PO 07/02/21 11/04/21 Unknown History capsule cholecalciferol (vitamin D3) 25 25 mcg PO DAILY 07/02/21 11/04/21 Unknown History mcg (1,000 unit) capsule vitamin b12 PO DAILY 07/02/21 11/04/21 Unknown History Exam Exam Date and Time: October 28, 2021 1032 Pertinent Lab Results Pertinent Lab Results: Laboratory Tests 10/22/21 10/22/21 08:39 08:39 WBC 7.9 Hgb 14.4 Hct 42.7 Plt Count 242 Sodium 142 Potassium 4.4 Chloride 105 Carbon Dioxide 27 BUN 13 Creatinine 0.83 Narrative Narrative: EKG 09/2021 atrial fibrillation at a rate of 63/Min; leftward axis; minimal voltage criteria for LVH; right bundle-branch block; cannot exclude old inferior infarct; normal corrected QT; overall unchanged from before Assessment and Plan Assessment Anesthesia Assessment: Chart Reviewed
[2021-10-29 08:50] VITALS: BMI 32.2
--- NOTE | 2021-10-29 09:00 | HO.ANESPROP2 ---
[facility] Active Problems Active Problems: All Active Problems (Updated 09/30/21 @ 11:25 by Los Jacques MD) Callous ulcer (Acute) Colon cancer screening (Acute) Right leg DVT (Acute) COVID-19 virus infection (Acute) Post covid-19 condition, unspecified (Acute) Hospital discharge follow-up (Acute) On home oxygen therapy (Acute) Moderate COPD (chronic obstructive pulmonary disease) (Acute) Hypoxia (Acute) Peripheral vascular disease (Acute) Plantar fasciitis of left foot (Acute) Current use of anticoagulant therapy (Acute) GERD (gastroesophageal reflux disease) (Acute) Impaired glucose tolerance (Acute) Hypercholesterolemia (Acute) Hypertension (Acute) Atrial fibrillation (Acute) Severe obstructive sleep apnea (Acute) Primary osteoarthritis of knees, bilateral (Acute) Seronegative rheumatoid arthritis (Acute) Past Medical History Medical History Atrial fibrillation Cor pulmonale (chronic) Current use of anticoagulant therapy GERD (gastroesophageal reflux disease) Hemothorax History of cardioversion Hypercholesterolemia Hypertension Impaired glucose tolerance 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 Mother Rheumatoid arteritis Other Mental health disorder Substance use disorder Family history of problems with anesthesia: No Surgical History Surgical History History of umbilical hernia repair Hx of tonsillectomy S/P emergency tracheotomy for assistance in breathing History of Problems with Anesthesia: No Social History Social History Household Members: Significant Other Housing: Apartment Do you presently have visiting nurse or other home services: No Alcohol intake: current Alcohol intake frequency: does not drink Alcohol type: beer and hard liquor Patient Tobacco Use Status: Former Tobacco user Tobacco use type: Cigarette Years Smoked: 49 e-Cigarette/Vaping Use: Never Used Second Hand Smoke Exposure: No Use of substances other than those prescribed or required for medical reasons: Yes Substance Use Type: Marijuana Are you DNR?: No Advance Directives: No Advance Directives Information Provided: Yes service: No Current occupational status: retired Cognitive needs: No Hearing needs: No Vision needs: No Meds Allergies Allergy/AdvReac Type Severity Reaction Status Date / Time Penicillins [PCN] Allergy Unknown UNKNOWN- Verified 10/27/21 08:20 RXN CHILD/? HIVES Active Medications: Current Medications Albuterol Sulfate (Albuterol Sulfate (0.083%) 2.5 Mg/3 Ml Vial.Neb) 2.5 mg INHALE ONCE PRN PRN Reason: Shortness of Breath/Wheezing Lactated Ringer's (Lr) 1,000 mls @ 50 mls/hr IVCONT .Q20H CARO Sodium Biphosphate/Sodium Phosphate (Sodium Phosphate,Karnes-Dibasic 133 Ml Enema) 133 ml SD ONCE PRN PRN Reason: Poor Colonoscopy Prep Results Home Medications Medication Instructions Recorded Confirmed Last Taken Type ascorbic acid (vitamin C) 500 mg 1,000 mg PO 07/02/21 10/27/21 Unknown History capsule cholecalciferol (vitamin D3) 25 25 mcg PO DAILY 07/02/21 10/27/21 Unknown History mcg (1,000 unit) capsule vitamin b12 PO DAILY 07/02/21 10/27/21 Unknown History Exam Exam Date and Time: October 29, 2021 0900 Height,Weight and Vital Signs: Height 6 ft 3 in Weight 117.027 kg Airway Mallampati Class: III TM Dist: >3cm Neck ROM: Full Loose/Missing/Broken Teeth: Yes, Upper and Lower Assessment and Plan Assessment Anesthesia Assessment: Anesthesia Plan Discussed and Chart Reviewed Final Anesthetic Review Family History of Problems with Anesthesia: No History of Problems with Anesthesia: No NPO: Yes ASA Class: III Final Preanesthetic Review: No Changes in Pt Med Stat, Meds/Allgs Chart Reviewed, Consent Obtained/Reviewed and Anes Risks/Benef Reviewed Patient Risk: Intermediate Procedure Risk: Low Anesthetic Plan Anesthetic Plan: MAC: Disposition: Standard PACU
[2021-10-29 09:06] VITALS: BP 143/72; PULSE 61; RESP 20; TEMP 36.6; O2SAT 97
[2021-10-29 09:07] LABS: INTERNATIONAL NORM RATIO 1.1 (0.9-1.1); Prothrombin Time 12.7 SEC (10.0-13.1)
[2021-10-29] MEDS: Albuterol Sulfate (0.083%) 2.5 MG/3 ML VIAL.NEB INHALE (09:08)
[2021-10-29 09:09] VITALS: PULSE 53; RESP 18; O2SAT 99
[2021-10-29] MEDS: Lactated Ringers 1,000 ML 50 ML IVCONT (09:32)
[2021-10-29 10:52] VITALS: BP 107/58; PULSE 56; RESP 16; TEMP 36.6; O2SAT 94
--- NOTE | 2021-10-29 11:00 | PM.OP ---
Brief Operative Note Date of Service: 10/29/21 Pre-op diagnosis: Screening Post-op diagnosis: other (Diverticulosis) Procedure: Colonoscopy to the cecum and TI Surgeon: Zachary Gordon Anesthesia: MAC Was an Carbonation Equipment Operator used for this Procedure?: No Estimated blood loss (mL): 0 Pathology: none sent Condition: stable Disposition: PACU
[2021-10-29 11:07] VITALS: BP 111/62; PULSE 55; RESP 18; TEMP 36.6; O2SAT 97
--- NOTE | 2021-10-29 22:28 | OP_ITS ---
SURGEON: Zachary Gordon MD INDICATIONS: The patient presents for evaluation of colorectal cancer screening and personal history of tubular adenomas of the colon. Full consent has been obtained from him for this, including risks of bleeding and perforation. PREOPERATIVE DIAGNOSIS: Personal history of tubular adenoma of the colon and colorectal cancer screening. POSTOPERATIVE DIAGNOSIS: PROCEDURE PERFORMED: Colonoscopy to cecum and terminal ileum. ESTIMATED BLOOD LOSS: COMPLICATIONS: ANESTHESIA: Monitored anesthesia care. ASSISTANTS: SPECIMENS: POSTOPERATIVE DIAGNOSES: Personal history of tubular adenoma of the colon and colorectal cancer screening, diverticulosis, and internal hemorrhoids. DESCRIPTION OF PROCEDURE: The patient was placed in the left lateral decubitus position. The digital rectal exam revealed no abnormalities. The Olympus video pediatric colonoscope was entered into the rectum and advanced easily to the cecum. Once in the cecum, I did identify a normal-appearing cecal pouch with appendiceal orifice and a normal-appearing ileocecal valve. The terminal ileum was cannulated and appeared normal. The scope was withdrawn back in the colon. The entire cecum and ileocecal valve appeared normal. The scope was slowly withdrawn assessing all mucosal surfaces carefully. For the most part, preparation was very good throughout the colon, although there was some liquid stool in the left colon that was irrigated and suctioned away as best as possible. I did not visualize any sign of polyps, colitis, or angiodysplasia. There was a mild amount of sigmoid diverticulosis. In the rectum, the scope was retroflexed visualizing internal hemorrhoids, but no other pathology. The rectal mucosa appeared normal. The scope was straightened and withdrawn from the patient. He tolerated the procedure well and was returned to the recovery area in stable condition. IMPRESSION: 1. Diverticulosis. 2. Internal hemorrhoids. PLAN: I would recommend a repeat colonoscopy in 5 years for further screening. I would recommend a 2 day bowel prep for his next colonoscopy to ensure a better clean out. He was advised to resume his Coumadin today at the normal dose and have it adjusted as per the anticoagulation Clinic or by his primary care physician. He will otherwise see me on a p.r.n. basis. MD WALI Mace/FERNANDO / [phone]
== END 2021-10-29 11:39 | disposition home or self-care (01) ==
PROVIDERS: PCP Internal Medicine; Visit Provider Internal Medicine
PROC: 0DJD8ZZ Inspection of Lower Intestinal Tract, Via Natural or Artificial Opening Endoscopic (ICD-10-PCS; CPT 45378; principal; 2021-10-29 09:30)
DX: Z12.11 Encounter for screening for malignant neoplasm of colon (principal); Z86.010 Personal history of colon polyps; K57.30 Diverticulosis of large intestine without perforation or abscess without bleeding; K64.8 Other hemorrhoids; K21.9 Gastro-esophageal reflux disease without esophagitis; I10 Essential (primary) hypertension; E78.00 Pure hypercholesterolemia, unspecified; G47.33 Obstructive sleep apnea (adult) (pediatric); J44.9 Chronic obstructive pulmonary disease, unspecified; I48.19 Other persistent atrial fibrillation; I73.9 Peripheral vascular disease, unspecified; E55.9 Vitamin D deficiency, unspecified; M06.00 Rheumatoid arthritis without rheumatoid factor, unspecified site; Z79.01 Long term (current) use of anticoagulants; Z79.51 Long term (current) use of inhaled steroids; Z79.899 Other long term (current) drug therapy; Z99.89 Dependence on other enabling machines and devices; Z88.0 Allergy status to penicillin; Z87.891 Personal history of nicotine dependence; Z86.16 Personal history of COVID-19
CPT/HCPCS: G0105; 36415; 85610; J2250

== ENCOUNTER → 2021-11-04 10:08 | Outpatient (BNVA) | payer MEDICARE, MEDICAID, SELFPAY | PROVIDERS: Visit Provider Nurse Practitioner Family | DX: M06.00 Rheumatoid arthritis without rheumatoid factor, unspecified site (principal); M79.89 Other specified soft tissue disorders; M79.671 Pain in right foot; M79.672 Pain in left foot; Z86.718 Personal history of other venous thrombosis and embolism; Z79.01 Long term (current) use of anticoagulants; Z79.899 Other long term (current) drug therapy | CPT/HCPCS: 99212 ==

== ENCOUNTER 2021-11-05 08:45 | Outpatient (REF) | payer MEDICARE, MEDICAID, SELFPAY ==
[2021-11-05 10:08] LABS: Alanine Aminotransferase 23 U/L (0-40); Aspartate Amino Transferase 21 U/L (5-37)
== END 2021-11-05 08:46 | disposition home or self-care (01) ==
LOC: HO.LAB 08:45
PROVIDERS: PCP Internal Medicine; Visit Provider Nurse Practitioner Family
DX: Z79.899 Other long term (current) drug therapy (principal)
CPT/HCPCS: 36415; 84450; 84460

== ENCOUNTER → 2021-11-12 11:53 | Outpatient (BNVA) | payer MEDICARE, MEDICAID, SELFPAY | PROVIDERS: PCP Internal Medicine; Visit Provider Internal Medicine | DX: I48.19 Other persistent atrial fibrillation (principal); Z79.01 Long term (current) use of anticoagulants; Z51.81 Encounter for therapeutic drug level monitoring | CPT/HCPCS: Q3014 ==

== ENCOUNTER → 2021-12-05 09:14 | Outpatient (BNVA) | payer MEDICARE, MEDICAID, SELFPAY | PROVIDERS: PCP Internal Medicine; Visit Provider Internal Medicine Pulmonary Disease | DX: J44.9 Chronic obstructive pulmonary disease, unspecified (principal); G47.33 Obstructive sleep apnea (adult) (pediatric); R60.0 Localized edema | CPT/HCPCS: 99212 ==

== ENCOUNTER 2021-12-16 07:22 | Outpatient (REF) | payer MEDICARE, MEDICAID, SELFPAY ==
--- NOTE | ~2021-12-16 | CT_ITS ---
EXAMINATION: CT CHEST WITHOUT CONTRAST CLINICAL INFORMATION: Long-term current use of antimetabolite agent. COPD. History of Covid infection. COMPARISON: Previous chest x-ray most recent January [address] most recent April 2017 TECHNIQUE: Multidetector volumetric CT imaging of the chest was done. Axial MIP volume rendering provided. Sagittal and coronal reformatted images were obtained. This CT examination was performed using dose optimization techniques as appropriate, variously including the following: *Automated exposure control *Adjustment of mA and/or kV according to patient size (this includes techniques or standardized protocols for targeted exams where dose is matched to indication/reason for exam; i.e. extremities or head) *Use of iterative reconstruction technique DLP: 329 mGy-cm FINDINGS: LUNGS: There is evidence of mild paraseptal emphysema. There is evidence of mild interstitial lung disease with increased peripheral reticular markings, left greater than right. No honeycombing. Mild traction bronchiolectasis in the left lower lobe. There is a new 6 x 7 mm right upper lobe nodule axial image 82 series 8. There is a new heterogeneous or semisolid left upper lobe nodule axial image 50 series 8 measuring 5 mm. There is a new 3 mm left upper lobe nodule axial image 31 series 8. There is a new 3 mm left upper lobe nodule axial image 49 series 8. There is a new 3 mm right upper lobe nodule axial image 65 series 8. There is a new 2 mm lower lobe nodule axial image 72 series 8. There are new 2 mm right lower lobe nodule axial image 81 series 8. New 3 mm right upper lobe nodule axial image 88 series 8. There is chronic scarring or subsegmental atelectasis in the lingula and left lower lobe. There is evidence of trauma to the left chest wall and mild herniation of the left upper lobe/lingula that appears unchanged. MEDIASTINUM: Upper normal-size heart and thoracic aorta. No pericardial effusion. Small Mediastinal lymph nodes. CORONARY ARTERY CALCIFICATION: Moderate PLEURA: There is no pleural effusion. No pleural mass or thickening. Slight elevation of the left hemidiaphragm. AXILLA: No lymphadenopathy. UPPER ABDOMEN: Multiple bilateral renal cysts. OSSEOUS STRUCTURES: Bilateral old rib fractures, left greater than right. Degenerative changes of the spine. CT/CT chest wo IV con IMPRESSION: Mild interstitial lung. Mild paraseptal. Extensive old trauma to the chest wall, left greater than right, and stable chronic scarring or subsegmental atelectasis at the left lung base. Multiple new nodules, largest measuring 7 mm on the right and 5 on the left. According to the UPDATED 2017 Fleischner Society recommendations, the advised follow-up imaging for 6-8 mm solid nodule: Chest CT follow-up in 3-6 months and 18-24 months. Fleischner guidelines were followed.
== END 2021-12-16 07:23 | disposition home or self-care (01) ==
LOC: HO.CT 07:22
PROVIDERS: Visit Provider Internal Medicine Pulmonary Disease
DX: R91.8 Other nonspecific abnormal finding of lung field (principal); Z79.631 Long term (current) use of antimetabolite agent
CPT/HCPCS: 71250

== ENCOUNTER → 2022-01-05 08:52 | Outpatient (BNVA) | payer MEDICARE, MEDICAID, SELFPAY | PROVIDERS: PCP Internal Medicine; Visit Provider Internal Medicine Pulmonary Disease | DX: J44.9 Chronic obstructive pulmonary disease, unspecified (principal); R91.8 Other nonspecific abnormal finding of lung field; R60.0 Localized edema; G47.33 Obstructive sleep apnea (adult) (pediatric) | CPT/HCPCS: 99212 ==

== ENCOUNTER 2022-02-05 11:36 | Inpatient (IN) | payer MEDICARE, MEDICAID, SELFPAY ==
[2022-02-05 12:04] VITALS: BP 104/68; PULSE 57; RESP 20; TEMP 36.9; O2SAT 98; BMI 34.0
--- NOTE | 2022-02-05 12:04 | ED_ITS ---
HPI - Skin/Abscess/Foreign Bdy General Chief complaint: Skin/Abscess/Foreign Body <Cayla Borjas NP - Last Filed: 02/05/22 12:08> Stated complaint: Swollen R leg <Cayla Borjas NP - Last Filed: 02/05/22 12:08> Time Seen by Provider: 02/05/22 21:08 <Cayla Borjas NP - Last Filed: 02/05/22 12:08> Source: patient <Yair Shields MD - Last Filed: 02/06/22 01:14> Mode of arrival: ambulatory <Yair Shields MD - Last Filed: 02/06/22 01:14> Limitations: no limitations <Yair Shields MD - Last Filed: 02/06/22 01:14> History of Present Illness HPI narrative: Patient history of hypertension, atrial fibrillation, sleep apnea, rheumatoid arthritis, on Coumadin/Humira/methotrexate with chronic right leg edema and frequent cellulitis comes here for increased redness in the right leg for last 2 -3 weeks which is getting worse now. No fever no chills <Yair Shields MD - Last Filed: 02/06/22 01:14> Related Data Home medications: Home Medications Medication Instructions Recorded Confirmed ascorbic acid (vitamin C) 500 mg 1,000 mg PO 07/02/21 01/13/22 capsule cholecalciferol (vitamin D3) 25 25 mcg PO DAILY 07/02/21 01/13/22 mcg (1,000 unit) capsule vitamin b12 PO DAILY 07/02/21 01/13/22 sulfamethoxazole 800 1 tab PO BID 02/05/22 02/05/22 mg-trimethoprim 160 mg tablet Previous Rx's Medication Instructions Recorded ipratropium 0.5 mg-albuterol 3 mg 3 ml inhalation Q4-6H PRN wheezing 03/18/21 (2.5 mg base)/3 mL nebulization 30 days #270 mL soln diltiazem HCl 180 mg 180 mg PO DAILY #90 caps 05/12/21 capsule,extended release 24 hr omeprazole 20 mg capsule,delayed 20 mg PO DAILY #90 caps 05/12/21 release pravastatin 20 mg tablet 20 mg PO DAILY #90 tabs 05/12/21 CPAP #1 ea 06/02/21 folic acid 1 mg tablet 3 mg PO DAILY 90 days #270 tabs 06/02/21 warfarin 5 mg tablet 5 mg PO .COMPLEX 90 days #110 tabs 10/21/21 lisinopril 5 mg tablet 5 mg PO DAILY #90 tabs 11/12/21 bumetanide 2 mg tablet 2 mg PO BID Dyspnea 30 days #60 12/05/21 tabs fluticasone fur. 200 mcg-umeclid 1 inh inhalation DAILY 30 days #1 12/22/21 62.5 mcg-vilant 25 mcg ea inhalat.powder (Trelegy Ellipta) albuterol sulfate 90 mcg/actuation 2 puff inhalation Q4-6H PRN 01/05/22 aerosol inhaler shortness of breath or wheezing 3 months #1 ea adalimumab 40 mg/0.4 mL See Rx Instructions subcut 01/27/22 subcutaneous pen kit (Humira(CF) .COMPLEX #2 ea Pen) methotrexate sodium 2.5 mg tablet 15 mg PO QWEEK #24 tabs 01/28/22 <Cayla Borjas NP - Last Filed: 02/05/22 12:08> Allergies/Adverse reactions: Allergies Allergy/AdvReac Type Severity Reaction Status Date / Time Penicillins [PCN] Allergy Unknown UNKNOWN- Verified 02/05/22 11:03 RXN CHILD/? HIVES <Cayla Borjas NP - Last Filed: 02/05/22 12:08> Review of Systems Review of Systems: Yes all other systems are reviewed and are negative <Yair Shields MD - Last Filed: 02/06/22 01:14> [facility] Past Medical History Medical History: Medical History Atrial fibrillation Cor pulmonale (chronic) Current use of anticoagulant therapy GERD (gastroesophageal reflux disease) Hemothorax History of cardioversion Hypercholesterolemia Hypertension Impaired glucose tolerance Insomnia [facility] methotrexate user Moderate COPD (chronic obstructive pulmonary disease) Peripheral neuropathy Peripheral vascular disease Persistent atrial fibrillation Primary osteoarthritis of knees, bilateral Right renal stone Seronegative rheumatoid arthritis Severe obstructive sleep apnea Vitamin D deficiency <Cayla Borjas NP - Last Filed: 02/05/22 12:08> Surgical History: Surgical History History of umbilical hernia repair Hx of tonsillectomy S/P emergency tracheotomy for assistance in breathing <Cayla Borjas NP - Last Filed: 02/05/22 12:08> Family History Family History: Family History Father No problems noted. Mother Rheumatoid arteritis Other Mental health disorder Substance use disorder <Cayla Borjas NP - Last Filed: 02/05/22 12:08> Social History Social History: Social History Household Members: Significant Other Housing: Apartment Do you presently have visiting nurse or other home services: No Alcohol intake: former Patient Tobacco Use Status: Former Tobacco user Tobacco use type: Cigarette Years Smoked: 49 Smoked in Last 30 Days: No e-Cigarette/Vaping Use: Never Used Second Hand Smoke Exposure: No Use of substances other than those prescribed or required for medical reasons: Yes Substance Use Type: Marijuana Advance Directives: No Advance Directives Information Provided: Yes service: No Current occupational status: retired Cognitive needs: No Hearing needs: No Vision needs: No <Cayla Borjas NP - Last Filed: 02/05/22 12:08> Physical Exam Vital Signs: Vital Signs: Last Vital Signs Temp 97.9 F 02/05/22 23:04 Pulse 60 02/05/22 23:04 Resp 22 H 02/05/22 23:04 BP 151/66 H 02/05/22 23:04 Pulse Ox 96 02/05/22 23:04 O2 Del Method 02/05/22 23:04 BMI result Body Mass Index 34.0 <Cayla Borjas NP - Last Filed: 02/05/22 12:08> Vital Signs: Last Vital Signs Temp 97.9 F 02/05/22 23:04 Pulse 60 02/05/22 23:04 Resp 22 H 02/05/22 23:04 BP 151/66 H 02/05/22 23:04 Pulse Ox 96 02/05/22 23:04 O2 Del Method 02/05/22 23:04 BMI result Body Mass Index 34.0 <Yair Shields MD - Last Filed: 02/06/22 01:14> Appearance: Alert. Oriented X3. No acute distress. Eyes: No pallor or icterus ENT: Pharynx normal. Oral Mucosa moist Neck: Normal inspection. Neck supple. CVS: Normal heart rate and rhythm. Pulses normal. Respiratory: No respiratory distress. Equal air entry bilateral, no wheezing/rales/rhonchi Abdomen: Soft and nontender. Bowel sounds are present, no mass palpable, no CVA tenderness Skin: Skin warm and dry. Swollen right leg with erythema circumferential spreading all the way to the knee superficial callus at the right foot no signs of infection the foot Normal skin turgor. Extremities: No lower extremity edema. No calf tenderness Neuro: Oriented X 3. No motor deficit. <Yair Shields MD - Last F iled: 02/06/22 01:14> Extrem: Other: <Yair Shields MD - Last Filed: 02/06/22 01:14> Course Course Course Narrative: This is a rapid medical exam. Deferred HPI, ROS, PE to primary provider. 66 yo male with history of COPD, HTN, HLD, afib/h/o DVTS on coumadin, RA on MTX /humira here with right leg swelling/redness intermittent over 10 days but worsened over the last 24 hrs. +circumferential swelling/redness to the leg noted. Will need labs, covid screen. VSS. Anticipate admission. <Cayla Borjas NP - Last Filed: 02/05/22 12:08> Medications Administered Generic Name Dose Route Start Last Admin Trade Name Freq PRN Reason Stop Dose Admin Sodium Chloride 3 ml 02/06/22 00:00 02/06/22 00:41 0.9 % Sodium Chloride Flush 3 Ml Syringe IVFLUSH Not Given QSHIFT CARO Discontinued Medications Generic Name Dose Route Start Last Admin Trade Name Freq PRN Reason Stop Dose Admin Vancomycin HCl 2,000 mg in 520 mls @ 260 mls/hr 02/05/22 22:30 02/05/22 22:55 Vancomycin/Ns IV 02/06/22 00:29 260 mls/hr ONCE ONE Administration <Cayla Borjas NP - Last Filed: 02/05/22 12:08> Medications Administered Generic Name Dose Route Start Last Admin Trade Name Freq PRN Reason Stop Dose Admin Sodium Chloride 3 ml 02/06/22 00:00 02/06/22 00:41 0.9 % Sodium Chloride Flush 3 Ml Syringe IVFLUSH Not Given QSHIFT CARO Discontinued Medications Generic Name Dose Route Start Last Admin Trade Name Freq PRN Reason Stop Dose Admin Vancomycin HCl 2,000 mg in 520 mls @ 260 mls/hr 02/05/22 22:30 02/05/22 22:55 Vancomycin/Ns IV 02/06/22 00:29 260 mls/hr ONCE ONE Administration <Yair Shields MD - Last Filed: 02/06/22 01:14> Medical Decision Making Medical Decision Making MDM Narrative: Patient immunocompromised on Humira and methotrexate with right leg cellulitis will admit for IV antibiotics <Yair Shields MD - Last Filed: 02/06/22 01:14> Lab Attestation: I reviewed the patient's lab results. <Yair Shields MD - Last Filed: 02/06/22 01:14> Discharge Plan Discharge Clinical Impression: Cellulitis <Cayla Borjas NP - Last Filed: 02/05/22 12:08> Patient Disposition: Admitted As Inpatient <Cayla Borjas NP - Last Filed: 02/05/22 12:08>
[2022-02-05 13:39] LABS: MANUAL DIFF FLAG NO
[2022-02-05 13:41] LABS: Basophils Percent Auto 0.2 % (0-2); Eosinophils Absolute Auto 0.1 X10*3/uL (0.0-0.4); Eosinophils Percent Auto 1.1 % (0-4); Hematocrit 41.1 % (42.0-52.0); Hemoglobin 13.6 g/dl (14.0-18.0); Imm Gran Abs Auto 0.07 X10*3/uL (0.00-0.03); Imm Gran Pct Auto 0.6 % (0.0-0.4); Lymphocytes Absolute Auto 1.5 X10*3/uL (1.2-4.9); Lymphocytes Percent Auto 12.3 % (20-40); Mean Corpuscular HGB Conc 33.1 g/dl (31.0-36.0); Mean Corpuscular Hemoglobin 33.5 pg (27.0-33.0); Mean Corpuscular Volume 101.2 fL (80.0-98.0); Mean Platelet Volume 9.5 fL (9.4-12.4); Monocytes Absolute Auto 0.9 X10*3/uL (0.1-1.2); Neutrophils Absolute Auto 9.7 x10*3/uL (2.0-8.3); Neutrophils Percent Auto 78.8 % (45-73); Platelet Count 226 X10*3/uL (160-400); Red Blood Count 4.06 X10*6/uL (4.60-5.80); Red Cell Distribution Width 14.7 % (11.0-16.0); White Blood Count 12.3 X10*3/uL (4.8-10.8)
[2022-02-05 13:47] LABS: INTERNATIONAL NORM RATIO 2.8 (0.9-1.1); Prothrombin Time 33.2 SEC (10.0-13.1)
[2022-02-05 13:51] LABS: Lactic Acid 1.4 mmol/L (0.5-2.0)
[2022-02-05 13:56] LABS: COVID-19 Test Negative (Negative); IDNOW Serial# 16C4AD1C
[2022-02-05 14:01] LABS: Alanine Aminotransferase 17 U/L (0-40); Albumin Level 4.6 g/dL (3.5-5.0); Alkaline Phosphatase 53 U/L (39-117); Anion Gap 13 (12-20); Aspartate Amino Transferase 14 U/L (5-37); Bilirubin Direct 0.3 mg/dL (0.0-0.5); Bilirubin Total 0.8 mg/dL (0.0-1.0); Blood Urea Nitrogen 13 mg/dL (9-16); C Reactive Protein 14.96 mg/dL (< or = 0.50); Carbon Dioxide 31 mmol/L (22-29); Chloride 102 mmol/L (96-108); Creatinine Clr Calc Pharmacy 116.8; Estimated Glomerular Filt Rate > 60; Glucose Random 108 mg/dL (60-115); Potassium 3.8 mmol/L (3.3-5.1); Sodium 142 mmol/L (135-145)
[2022-02-05 14:18] LABS: Erythrocyte Sedimentation Rate 38 MM/HR (0-15)
[2022-02-05 21:31] VITALS: BP 123/55; PULSE 59; RESP 14; TEMP 36.6; O2SAT 93
[2022-02-05 23:04] VITALS: BP 151/66; PULSE 60; RESP 22; TEMP 36.6; O2SAT 96
--- NOTE | 2022-02-05 23:12 | PC.NURSE ---
Pt's V/S re stable, pt is on the monitor and it shows sinus bradyhcardia (50). Provider has been notified. Pt reported a week ago started seen his right lower leg getting swollen, discolored, and warm to touch. Pt was wheezing on the upper bilaterally lungs. left lower lobe sounded like crackles, pt has hx of COPD. ABX are running. will continue to monitor. Pt has IV on his right forearm 20g.
--- NOTE | 2022-02-05 23:20 | PC.NURSE ---
Pt's V/S re stable, pt is on the monitor and it shows a-fib (50). Provider has been notified. Pt reported a week ago started seen his right lower leg getting swollen, discolored, and warm to touch. Pt was wheezing on the upper bilaterally lungs. left lower lobe sounded like crackles, pt has hx of COPD. ABX are running. will continue to monitor. Pt has IV on his right forearm 20g.
--- NOTE | 2022-02-05 23:40 | P.HPHOSP_ITS ---
History of Present Illness Date of Service: 02/05/22 Chief Complaint: Right foot swelling/redness This is a 66-year-old male with pertinent history of atrial fibrillation on Coumadin, essential hypertension, rheumatoid arthritis on Humira/methotrexate, COPD, JENNIFER on CPAP presents to the emergency department for evaluation of right lower extremity swelling/redness/erythema. Patient states it has been ongoing for a while but has worsened in the last 3 days. It is associated with pain. No purulent discharge. No fever or chills. Patient states he went to his health psychologist yesterday and had a callus removed. He was prescribed p.o. antibiotics but he did not take it as his commercial real estate underwriter's had recommended to s ee them before he took any antibiotics. Patient went to his commercial real estate underwriter's office today who recommended the patient to go to the ER for IV antibiotics and admission. He denies chest discomfort, palpitation, shortness of breath, abdominal pain, changes in urinary or bowel habits. Review of Systems Constitutional: Constitutional: Reports no additional constitutional complaints Cardiovascular: Cardiovascular: Reports no additional cardiovascular complaints Respiratory: Respiratory: Reports no additional respiratory complaints Gastrointestinal: Gastrointestinal: Reports no additional gastrointestinal complaints Genitourinary: Genitourinary: Reports no additional male genitourinary complaints [facility] Medical History Atrial fibrillation Cor pulmonale (chronic) Current use of anticoagulant therapy GERD (gastroesophageal reflux disease) Hemothorax History of cardioversion Hypercholesterolemia Hypertension Impaired glucose tolerance Insomnia 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 Mother Rheumatoid arteritis Other Mental health disorder Substance use disorder Surgical History History of umbilical hernia repair Hx of tonsillectomy S/P emergency tracheotomy for assistance in breathing Social History Household Members: Significant Other Housing: Apartment Do you presently have visiting nurse or other home services: No Alcohol intake: former Patient Tobacco Use Status: Former Tobacco user Tobacco use type: Cigarette Years Smoked: 49 Smoked in Last 30 Days: No e-Cigarette/Vaping Use: Never Used Second Hand Smoke Exposure: No Use of substances other than those prescribed or required for medical reasons: Yes Substance Use Type: Marijuana Advance Directives: No Advance Directives Information Provided: Yes service: No Current occupational status: retired Cognitive needs: No Hearing needs: No Vision needs: No Meds Allergies Allergy/AdvReac Type Severity Reaction Status Date / Time Penicillins [PCN] Allergy Unknown UNKNOWN- Verified 02/05/22 11:03 RXN CHILD/? HIVES Active Medications: Current Medications Vancomycin HCl (Vancomycin/Ns) 2,000 mg in 520 mls @ 260 mls/hr IV ONCE ONE Stop: 02/06/22 00:29 Last Admin: 02/05/22 22:55 Dose: 260 mls/hr Pharmacy Consult (Consult Rx Perform Med Rec) 1 each MISCELLANE ONCE PRN PRN Reason: Consult order Home Medications Medication Instructions Recorded Confirmed Last Taken Type ascorbic acid (vitamin C) 500 mg 1,000 mg PO 07/02/21 01/13/22 Unknown History capsule cholecalciferol (vitamin D3) 25 25 mcg PO DAILY 07/02/21 01/13/22 Unknown History mcg (1,000 unit) capsule vitamin b12 PO DAILY 07/02/21 01/13/22 Unknown History sulfamethoxazole 800 1 tab PO BID 02/05/22 02/05/22 Unknown History mg-trimethoprim 160 mg tablet Physical Exam Vital Signs and Narrative: Vital Signs: Last Vital Signs Temp 97.9 F 02/05/22 23:04 Pulse 60 02/05/22 23:04 Resp 22 H 02/05/22 23:04 BP 151/66 H 02/05/22 23:04 Pulse Ox 96 02/05/22 23:04 O2 Del Method 02/05/22 23:04 BMI result Body Mass Index 34.0 Middle-aged male lying in bed in no distress Neck supple, no JVD Regular rate and rhythm, S1-S2 heard Regular breath sounds bilaterally, no wheezing or crackles appreciated Abdomen soft nontender, no guarding, no rigidity Patient is awake, alert and oriented to self, place, time and person ; no focal motor deficit Extremity: Right lower extremity with swelling, redness, warmth and tenderness Psych: Normal mood No pedal edema Results Labs CBC and Chem 7: 02/05/22 13:32 02/05/22 13:32 Labs: Laboratory Results - last 24 hr 02/05/22 02/05/22 02/05/22 13:32 13:32 13:32 MCV 101.2 H MCH 33.5 H MCHC 33.1 RDW 14.7 Plt Count 226 MPV 9.5 Immature Gran % (Auto) 0.6 H Neut % (Auto) 78.8 H Lymph % (Auto) 12.3 L [place] % (Auto) 7.0 Eos % (Auto) 1.1 Baso % (Auto) 0.2 Lymph # (Auto) 1.5 [place] # (Auto) 0.9 Eos # (Auto) 0.1 Baso # (Auto) 0.0 Abs Immat Gran (auto) 0.07 H Absolute Neuts (auto) 9.7 H Absolute Nucleated RBC 0.000 Nucleated RBC % (auto) 0.0 ESR 38 H PT 33.2 H INR 2.8 H Anion Gap Estim Creat Clear Calc Estimated GFR Random Glucose Lactic Acid Calcium Total Bilirubin Direct Bilirubin AST ALT Alkaline Phosphatase C-Reactive Protein Total Protein Albumin COVID-19 (TAL) COVID-19 [employer] 02/05/22 02/05/22 02/05/22 13:32 13:32 13:32 MCV MCH MCHC RDW Plt Count MPV Immature Gran % (Auto) Neut % (Auto) Lymph % (Auto) [place] % (Auto) Eos % (Auto) Baso % (Auto) Lymph # (Auto) [place] # (Auto) Eos # (Auto) Baso # (Auto) Abs Immat Gran (auto) Absolute Neuts (auto) Absolute Nucleated RBC Nucleated RBC % (auto) ESR PT INR Anion Gap 13 Estim Creat Clear Calc 116.8 Estimated GFR > 60 Random Glucose 108 Lactic Acid 1.4 Calcium 9.0 D Total Bilirubin 0.8 Direct Bilirubin 0.3 AST 14 ALT 17 Alkaline Phosphatase 53 C-Reactive Protein 14.96 H Total Protein 7.0 Albumin 4.6 COVID-19 (TAL) Negative COVID-19 Clin Com See Note Assessment and Plan (1) Cellulitis: Status: Acute (2) Atrial fibrillation: Qualifiers: Atrial fibrillation type: paroxysmal Qualified Code(s): I48.0 - Paroxysmal atrial fibrillation Status: Acute (3) Hypertension: Qualifiers: Hypertension type: essential hypertension Qualified Code(s): I10 - Essential (primary) hypertension Status: Acute (4) GERD (gastroesophageal reflux disease): Qualifiers: Esophagitis presence: without esophagitis Qualified Code(s): K21.9 - Gastro-esophageal reflux disease without esophagitis Status: Acute (5) Current use of anticoagulant therapy: Status: Acute (6) Seronegative rheumatoid arthritis: Status: Acute (7) On methotrexate therapy: Status: Acute Plan This is a 66-year-old male with pertinent history of atrial fibrillation on Coumadin, essential hypertension, rheumatoid arthritis on Humira/methotrexate, COPD, JENNIFER on CPAP presents to the emergency department for evaluation of right lower extremity swelling/redness/erythema #. Right lower extremity cellulitis: Will admit for IV antibiotics in this immunosuppressed patient and extensive cellulitis. Patient received vancomycin in the ER, continue. Blood cultures obtained in the ER. #. Rheumatoid arthritis: On methotrexate and Humira #. JENNIFER: Continue bedtime CPAP #. Atrial fibrillation on Coumadin. Rate controlled in the ER #. Gastroesophageal reflux disease: On PPI #. Essential hypertension: On diltiazem and lisinopril #. COPD: Continue home inhaler. DuoNebs p.r.n. Med rec pending DVT prophylaxis: On Coumadin Diet: Cardiac diet Full code Admit as inpatient and will require two night minimum hospital stay for IV antibiotics. Quality Stroke Does the patient have a stroke diagnosis?: No VTE Prior VTE?: Yes VTE Risk Level:: Medical - moderate - high VTE Device Contraindication: Treatment Not Indicated VTE Drug Contraindication: N/A - Med Ordered
[2022-02-06] VITALS (7 sets, daily range): BP systolic 123–166; BP diastolic 41–79; PULSE 53–73; RESP 16–20; TEMP 36.1–37.1; O2SAT 95–97
--- NOTE | 2022-02-06 00:18 | PC.NURSE ---
Pt's HR is fluctuating to 30s and up to 55 is asymptomatic, provider notified.
[2022-02-06 06:59] LABS: MANUAL DIFF FLAG NO
[2022-02-06 07:02] LABS: Basophils Percent Auto 0.3 % (0-2); Eosinophils Absolute Auto 0.2 X10*3/uL (0.0-0.4); Hemoglobin 12.2 g/dl (14.0-18.0); Imm Gran Abs Auto 0.07 X10*3/uL (0.00-0.03); Imm Gran Pct Auto 0.6 % (0.0-0.4); Lymphocytes Absolute Auto 1.6 X10*3/uL (1.2-4.9); Lymphocytes Percent Auto 14.2 % (20-40); Mean Corpuscular Hemoglobin 33.4 pg (27.0-33.0); Mean Corpuscular Volume 101.4 fL (80.0-98.0); Mean Platelet Volume 9.5 fL (9.4-12.4); Monocytes Percent Auto 9.3 % (2-11); Neutrophils Absolute Auto 8.2 x10*3/uL (2.0-8.3); Neutrophils Percent Auto 73.6 % (45-73); Platelet Count 207 X10*3/uL (160-400); Red Blood Count 3.65 X10*6/uL (4.60-5.80); Red Cell Distribution Width 14.6 % (11.0-16.0); White Blood Count 11.1 X10*3/uL (4.8-10.8)
[2022-02-06 07:55] LABS: Anion Gap 13 (12-20); Blood Urea Nitrogen 12 mg/dL (9-16); Calcium 8.6 mg/dL (8.4-10.2); Carbon Dioxide 28 mmol/L (22-29); Chloride 103 mmol/L (96-108); Creatinine Clr Calc Pharmacy 126.9; Estimated Glomerular Filt Rate > 60; Glucose Random 109 mg/dL (60-115); Potassium 4.3 mmol/L (3.3-5.1); Sodium 140 mmol/L (135-145)
--- NOTE | 2022-02-06 08:58 | PHA.MEDREC ---
Pharmacy Consult ? Medication Reconciliation Pharmacy has completed the medication reconciliation. Spoke to patient at bedside, patient was a good historian
[2022-02-06] MEDS: 0.9 % Sodium Chloride Flush 3 ML SYRINGE IVFLUSH ×2 (09:12→19:59)
--- NOTE | 2022-02-06 09:59 | PHA.PROG ---
Admission Date/Time: February 05, 2022 23:38 Indication: SKIN SKIN STRUCTURE Weight in k.377 kg Adjusted body weight in Kg: [place] body weight in Kg: Obesity Dosing Indication % IBW: Serum Creatinine - Last 168 Hours 02/05/22 02/06/22 13:32 05:49 Creatinine 0.88 0.81 Estimated CrCl and GFR - Last 168 Hours 02/05/22 02/06/22 13:32 05:49 Estim Creat Clear Calc 116.8 126.9 Estimated GFR > 60 > 60 Vancomycin Loading Dose: 2000 MG Current Vancomycin Dosing Regimen: 1000MG Q12H Vancomycin Monitoring using AUC goal of 400 - 600 range with trough as surrogate marker: [id number] TROUGH 12.2 Date and Time for next Vancomycin Level to be drawn: 02/07 @ 0800 Pharmacist Comments on Vancomycin Plan: OBESE MODEL Vancomycin dosing will take advantage of [employer] as a clinical decision support tool that uses Bayesian modeling to calculate individual patient's pharmacokinetic parameters and forecast the patient's drug concentration time course with the target goal AUC 24 range of 400 - 600 mg/L/hr.
--- NOTE | 2022-02-06 10:12 | MHC.CM.PN ---
pt lives with his as is independent is not expected to need servceis when dcd pt is covid vax x 4 has own ride home home no servceis is the plan
[2022-02-06] MEDS: vancomycin HCL 1,000 MG in 0.9 % Sodium Chloride 250 ML 270 MG IV ×2 (11:44→21:10)
--- NOTE | 2022-02-06 15:23 | P.PNIM_ITS ---
Subjective Subjective Date of Service: 02/06/22 Interval History: RLE redness/swelling improved no fever/chills Review of Systems Review of Systems: Yes all other systems are reviewed and are negative Physical Exam Vital Signs: Vital Signs: Last Vital Signs Temp 98.0 F 02/06/22 07:58 Pulse 67 02/06/22 07:58 Resp 17 02/06/22 07:58 BP 123/70 02/06/22 07:58 Pulse Ox 96 02/06/22 07:58 O2 Del Method 02/06/22 07:58 O2 Flow Rate 2 02/06/22 07:58 BMI result Body Mass Index 34.0 Gen: in no acute distress HEENT: sclera anicteric, moist mucus membranes Neck: supple Lungs: clear to auscultation bilaterally Heart: regular rate and rhythm, no murmurs Abd: soft, non-tender, non-distended Ext: RLE swollen to knee Skin: RLE erythema/induration/tendernss without fluctuance or discharge, up to knee Neuro: alert and oriented x3, no focal findings Psych: appropriate affect Objective Data Active Medications Acetaminophen (Acetaminophen 325 Mg Tablet) 650 mg PO Q6H PRN PRN Reason: Pain, Mild (Pain Scale 1-3) Albuterol Sulfate (Albuterol Sulfate 90 Mcg 8 Gm Inhaler) 2 puff INHALE Q4-6H PRN PRN Reason: shortness of breath or wheezing Albuterol/Ipratropium (Albuterol/Iprat 2.5/0.5mg 3 Ml Ampul.Neb) 3 ml INHALE RQ4H PRN PRN Reason: wheezing Albuterol/Ipratropium (Albuterol/Iprat 2.5/0.5mg 3 Ml Ampul.Neb) 3 ml INHALE Q4-6H PRN PRN Reason: wheezing Ascorbic Acid (Ascorbic Acid 500 Mg Tablet) 1,000 mg PO DAILY CARO Bumetanide (Bumetanide 1 Mg Tablet) 2 mg PO BID CARO; Protocol Diltiazem HCl (Diltiazem Hcl Cd 180 Mg Cap.Er.24h) 180 mg PO DAILY CARO; Protocol Folic Acid (Folic Acid 1 Mg Tablet) 3 mg PO DAILY CARO Vancomycin HCl 1,000 mg/ (Sodium Chloride) 270 mls @ 270 mls/hr IV Q12H CARO Last Infusion: 02/06/22 13:20 Dose: 0 mls/hr Documented By: POLO Lisinopril (Lisinopril 5 Mg Tablet) 5 mg PO DAILY [facility]; Protocol Melatonin (Melatonin 3 Mg Tablet) 6 mg PO BEDTIME PRN PRN Reason: Insomnia Non-Formulary Medication (Gemsvtibxhy-Zjrqamjrs-Ohjnpuaa [Trelegy Ellipta]) 1 inhalation INHALE DAILY [facility] Omeprazole (Omeprazole 20 Mg Capsule.Dr) 20 mg PO DAILY [facility] Ondansetron HCl (Ondansetron Hcl 4 Mg/2 Ml Vial) 4 mg IVPUSH Q8H PRN PRN Reason: Nausea and Vomiting Pharmacy Consult (Consult Rx Perform Med Rec) 1 each MISCELLANE ONCE PRN PRN Reason: Consult order Pharmacy Consult (Consult Rx Vancomycin Dosing) 1 each MISCELLANE DAILY PRN PRN Reason: Consult order Pravastatin Sodium (Pravastatin Sodium 20 Mg Tablet) 20 mg PO DAILY [facility] Sodium Chloride (0.9 % Sodium Chloride Flush 3 Ml Syringe) 3 ml IVFLUSH QSHIFT [facility] Last Admin: 02/06/22 09:12 Dose: 3 ml Documented By: POLO Vitamin D (Cholecalciferol (Vitamin D3) 25 Mcg Tablet) 25 mcg PO DAILY [facility] Warfarin Sodium (Warfarin Sodium 5 Mg Tablet) 5 mg PO .COMPLEX [facility] Labs CBC & Chem 7: 02/06/22 05:49 02/06/22 05:49 Labs: Laboratory Results - last 24 hr 02/06/22 02/06/22 05:49 05:49 MCV 101.4 H MCH 33.4 H MCHC 33.0 RDW 14.6 Plt Count 207 MPV 9.5 Immature Gran % (Auto) 0.6 H Neut % (Auto) 73.6 H Lymph % (Auto) 14.2 L [place] % (Auto) 9.3 Eos % (Auto) 2.0 Baso % (Auto) 0.3 Lymph # (Auto) 1.6 [place] # (Auto) 1.0 Eos # (Auto) 0.2 Baso # (Auto) 0.0 Abs Immat Gran (auto) 0.07 H Absolute Neuts (auto) 8.2 Absolute Nucleated RBC 0.000 Nucleated RBC % (auto) 0.0 Anion Gap 13 Estim Creat Clear Calc 126.9 Estimated GFR > 60 Random Glucose 109 Calcium 8.6 Assessment and Plan (1) Cellulitis: Status: Acute Plan d#2 66yo M with AF on warfarin, HTN, RA on adalimumab, COPD, JENNIFER on CPAP sent in by supervisor soldering for RLE redness/swelling # cellulitis, nonpurulent - continue vanco d#2, follow BCx # RA - hold MTX + adalimumuab # JENNIFER - nocturnal CPAP # chronic AF on warfarin - continue warfarin, monitor INR daily [2.8 last night] - continue diltiazem # R-sided HF, chronic - continue bumetanide # HTN - continue diltiazem + lisinopril # GERD - contine PPI # COPD - continue triple controller inhaler, prn nebulizer treatments # VTE ppx: warfarin In my clinical judgment, the patient requires continued inpatient hospitalization for the following reasons: IV ABX Time Spent With Patient Time: Total time managing care of this patient today ____ minutes. Quality Stroke Does the patient have a stroke diagnosis?: No VTE Prior VTE?: Yes VTE Risk Level:: Medical - moderate - high VTE Device Contraindication: Treatment Not Indicated VTE Drug Contraindication: N/A - Med Ordered
[2022-02-06 16:01] LABS: INTERNATIONAL NORM RATIO 2.1 (0.9-1.1); Prothrombin Time 25.3 SEC (10.0-13.1)
[2022-02-06] MEDS: Warfarin Sodium 5 MG TABLET PO (19:57)
[2022-02-06] MEDS: Bumetanide 1 MG TABLET 2 MG PO (19:58)
--- NOTE | 2022-02-06 21:30 | PC.NURSE ---
Patient c/o right calf pain,hot to touch,redness and swelling present,patient is on Coumadin, made aware,questioned need for US
[2022-02-06] MEDS: Albuterol/Iprat 2.5/0.5MG 3 ML AMPUL.NEB INHALE (22:38)
[2022-02-07] MEDS: 0.9 % Sodium Chloride Flush 3 ML SYRINGE IVFLUSH ×3 (00:19→17:44)
[2022-02-07 04:00] VITALS: BP 124/72; PULSE 54; RESP 18; TEMP 36; O2SAT 96
[2022-02-07] MEDS: Omeprazole 20 MG CAPSULE.DR PO (06:13)
[2022-02-07 08:00] VITALS: BP 140/78; PULSE 57; RESP 18; TEMP 36.6; O2SAT 97
[2022-02-07 08:24] LABS: INTERNATIONAL NORM RATIO 1.8 (0.9-1.1); Prothrombin Time 21.5 SEC (10.0-13.1)
[2022-02-07 08:34] LABS: Creatinine Clr Calc Pharmacy 123.8; Estimated Glomerular Filt Rate > 60; Vancomycin Random 7.4 mcg/mL (15-20)
--- NOTE | 2022-02-07 08:42 | HE.PHANOTE ---
Vancomycin Dosing Patient's trough subtherapeutic today at 7.4. Will increase dose to vancomycin 1000 mg Q8H (previously Q12H). New expected AUC 489 with a trouoh of 11.7. Next trough of 02/08 @ 0800. Kendra GannD
[2022-02-07] MEDS: lisinopriL 5 MG TABLET PO (09:12)
[2022-02-07] MEDS: Folic Acid 1 MG TABLET 3 MG PO (09:12)
[2022-02-07] MEDS: Pravastatin Sodium 20 MG TABLET PO (09:13)
[2022-02-07] MEDS: Ascorbic Acid 500 MG TABLET 1000 MG PO (09:13)
[2022-02-07] MEDS: dilTIAZem HCL CD 180 MG CAP.ER.24H PO (09:13)
[2022-02-07] MEDS: Bumetanide 1 MG TABLET 2 MG PO ×2 (09:13→17:42)
[2022-02-07] MEDS: Cholecalciferol (Vitamin D3) 25 MCG TABLET PO (09:13)
[2022-02-07] MEDS: vancomycin HCL 1,000 MG in 0.9 % Sodium Chloride 250 ML 270 MG IV ×2 (09:14→17:42)
--- NOTE | 2022-02-07 11:38 | P.PNIM_ITS ---
Subjective Subjective Date of Service: 02/07/22 Interval History: no fever redness/swelling improved Review of Systems Review of Systems: Yes all other systems are reviewed and are negative Physical Exam Vital Signs: Vital Signs: Last Vital Signs Temp 97.8 F 02/07/22 08:00 Pulse 57 02/07/22 08:00 Resp 18 02/07/22 08:00 BP 140/78 H 02/07/22 08:00 Pulse Ox 97 02/07/22 08:00 O2 Del Method 02/07/22 08:00 O2 Flow Rate 2 02/06/22 07:58 BMI result Body Mass Index 34.0 Gen: in no acute distress HEENT: sclera anicteric, moist mucus membranes Neck: supple Lungs: clear to auscultation bilaterally Heart: regular rate and rhythm, no murmurs Abd: soft, non-tender, non-distended Ext: RLE swollen to knee Skin: RLE erythema/induration/tendernss without fluctuance or discharge, up to knee; markedly improved from yesterday Neuro: alert and oriented x3, no focal findings Psych: appropriate affect Objective Data Active Medications Acetaminophen (Acetaminophen 325 Mg Tablet) 650 mg PO Q6H PRN PRN Reason: Pain, Mild (Pain Scale 1-3) Albuterol Sulfate (Albuterol Sulfate 90 Mcg 8 Gm Inhaler) 2 puff INHALE Q4H PRN PRN Reason: shortness of breath or wheezing Albuterol/Ipratropium (Albuterol/Iprat 2.5/0.5mg 3 Ml Ampul.Neb) 3 ml INHALE RQ4H PRN PRN Reason: wheezing Last Admin: 02/06/22 22:38 Dose: 3 ml Documented By: JAMIE Albuterol/Ipratropium (Albuterol/Iprat 2.5/0.5mg 3 Ml Ampul.Neb) 3 ml INHALE Q4H PRN PRN Reason: wheezing Ascorbic Acid (Ascorbic Acid 500 Mg Tablet) 1,000 mg PO DAILY [facility] Last Admin: 02/07/22 09:13 Dose: 1,000 mg Documented By: SAMI Bumetanide (Bumetanide 1 Mg Tablet) 2 mg PO BIDWM [facility]; Protocol Last Admin: 02/07/22 09:13 Dose: 2 mg Documented By: SAMI Diltiazem HCl (Diltiazem Hcl Cd 180 Mg Cap.Er.24h) 180 mg PO DAILY [facility]; P rotocol Last Admin: 02/07/22 09:13 Dose: 180 mg Documented By: SAMI Folic Acid (Folic Acid 1 Mg Tablet) 3 mg PO DAILY [facility] Last Admin: 02/07/22 09:12 Dose: 3 mg Documented By: SAMI Vancomycin HCl 1,000 mg/ (Sodium Chloride) 270 mls @ 270 mls/hr IV Q8H [facility] Last Admin: 02/07/22 09:14 Dose: 270 mls/hr Documented By: SAMI Lisinopril (Lisinopril 5 Mg Tablet) 5 mg PO DAILY [facility]; Protocol Last Admin: 02/07/22 09:12 Dose: 5 mg Documented By: SAMI Melatonin (Melatonin 3 Mg Tablet) 6 mg PO BEDTIME PRN PRN Reason: Insomnia Non-Formulary Medication (Zbreyktpdwu-Osbgcxvkv-Gwufeklx [Trelegy Ellipta]) 1 inhalation INHALE DAILY [facility] Omeprazole (Omeprazole 20 Mg Capsule.Dr) 20 mg PO DAILY@0630 [facility] Last Admin: 02/07/22 06:13 Dose: 20 mg Documented By: SHAUNA Ondansetron HCl (Ondansetron Hcl 4 Mg/2 Ml Vial) 4 mg IVPUSH Q8H PRN PRN Reason: Nausea and Vomiting Pharmacy Consult (Consult Rx Perform Med Rec) 1 each MISCELLANE ONCE PRN PRN Reason: Consult order Pharmacy Consult (Consult Rx Vancomycin Dosing) 1 each MISCELLANE DAILY PRN PRN Reason: Consult order Pravastatin Sodium (Pravastatin Sodium 20 Mg Tablet) 20 mg PO DAILY [facility] Last Admin: 02/07/22 09:13 Dose: 20 mg Documented By: SAMI Sodium Chloride (0.9 % Sodium Chloride Flush 3 Ml Syringe) 3 ml IVFLUSH QSHIFT [facility] Last Admin: 02/07/22 09:13 Dose: 3 ml Documented By: SAMI Vitamin D (Cholecalciferol (Vitamin D3) 25 Mcg Tablet) 25 mcg PO DAILY [facility] Last Admin: 02/07/22 09:13 Dose: 25 mcg Documented By: SAMI Warfarin Sodium (Warfarin Sodium 5 Mg Tablet) 5 mg PO DAILY@1800 [facility] Last Admin: 02/06/22 19:57 Dose: 5 mg Documented By: PAULA Labs CBC & Chem 7: 02/06/22 05:49 02/07/22 07:54 Labs: Laboratory Results - last 24 hr 02/06/22 02/07/22 02/07/22 15:49 07:54 07:54 PT 25.3 H INR 2.1 H Estim Creat Clear Calc 123.8 Estimated GFR > 60 Random Vancomycin 7.4 L 02/07/22 07:54 PT 21.5 H INR 1.8 H Estim Creat Clear Calc Estimated GFR Random Vancomycin Microbiology Microbiology Results: Microbiology 02/05/22 15:00 Blood Culture - Preliminary Blood - Venous No growth after 24 hours. 02/05/22 13:32 Blood Culture - Preliminary Blood - Venous No growth after 24 hours. Assessment and Plan (1) Cellulitis: Status: Acute Plan d#3 66yo M with AF on warfarin, HTN, RA on adalimumab, COPD, JENNIFER on CPAP sent in by electric range assembler for RLE redness/swelling # cellulitis, nonpurulent - continue vanco d#3, follow BCx- no growth to date # RA - hold MTX + adalimumuab # JENNIFER - nocturnal CPAP # chronic AF on warfarin - continue warfarin, monitor INR daily [1.8 today] - continue diltiazem # R-sided HF, chronic - continue bumetanide # HTN - continue diltiazem + lisinopril # GERD - contine PPI # COPD - continue triple controller inhaler, prn nebulizer treatments # VTE ppx: warfarin # dispo: anticipate home tomorrow if continues to improve In my clinical judgment, the patient requires continued inpatient hospitalization for the following reasons: IV ABX Time Spent With Patient Time: Total time managing care of this patient today ____ minutes. Quality Stroke Does the patient have a stroke diagnosis?: No VTE Prior VTE?: Yes VTE Risk Level:: Medical - moderate - high VTE Device Contraindication: Treatment Not Indicated VTE Drug Contraindication: N/A - Med Ordered
[2022-02-07 15:47] VITALS: BP 136/69; PULSE 68; RESP 18; TEMP 36.8; O2SAT 98
[2022-02-07] MEDS: Warfarin Sodium 5 MG TABLET PO (17:42)
[2022-02-07 19:39] VITALS: BP 147/62; PULSE 73; RESP 20; TEMP 36.6; O2SAT 95
[2022-02-08] MEDS: 0.9 % Sodium Chloride Flush 3 ML SYRINGE IVFLUSH ×2 (02:17→08:26)
[2022-02-08] MEDS: vancomycin HCL 1,000 MG in 0.9 % Sodium Chloride 250 ML 270 MG IV ×2 (02:17→09:54)
[2022-02-08 02:44] VITALS: BP 137/68; PULSE 58; RESP 20; TEMP 36.3; O2SAT 98
[2022-02-08 06:38] VITALS: RESP 20
[2022-02-08] MEDS: Omeprazole 20 MG CAPSULE.DR PO (07:07)
[2022-02-08 07:46] VITALS: BP 120/68; PULSE 63; RESP 18; TEMP 36.2; O2SAT 96
[2022-02-08] MEDS: dilTIAZem HCL CD 180 MG CAP.ER.24H PO (08:25)
[2022-02-08] MEDS: Bumetanide 1 MG TABLET 2 MG PO (08:25)
[2022-02-08] MEDS: Folic Acid 1 MG TABLET 3 MG PO (08:25)
[2022-02-08] MEDS: Ascorbic Acid 500 MG TABLET 1000 MG PO (08:25)
[2022-02-08] MEDS: Pravastatin Sodium 20 MG TABLET PO (08:26)
[2022-02-08] MEDS: lisinopriL 5 MG TABLET PO (08:26)
[2022-02-08] MEDS: Cholecalciferol (Vitamin D3) 25 MCG TABLET PO (08:26)
[2022-02-08 08:44] LABS: Hematocrit 45.9 % (42.0-52.0); Mean Corpuscular HGB Conc 32.7 g/dl (31.0-36.0); Mean Corpuscular Hemoglobin 33.2 pg (27.0-33.0); Mean Corpuscular Volume 101.5 fL (80.0-98.0); Mean Platelet Volume 9.5 fL (9.4-12.4); Platelet Count 267 X10*3/uL (160-400); Red Blood Count 4.52 X10*6/uL (4.60-5.80); Red Cell Distribution Width 14.2 % (11.0-16.0); Vancomycin Trough 13.7 mcg/mL (10.0-20.0); White Blood Count 8.3 X10*3/uL (4.8-10.8)
[2022-02-08 08:45] LABS: C Reactive Protein 4.95 mg/dL (< or = 0.50); Creatinine Clr Calc Pharmacy 120.9; Estimated Glomerular Filt Rate > 60
--- NOTE | 2022-02-08 08:47 | HE.PHANOTE ---
Vancomycin Dosing Level therapeutic today. Renal function stable. Continue current regimen vanco 1000 mg Q8H. next trough 02/09 @ 0800. Kendra GannD
[2022-02-08 08:56] LABS: INTERNATIONAL NORM RATIO 1.9 (0.9-1.1); Prothrombin Time 22.5 SEC (10.0-13.1)
--- NOTE | 2022-02-08 11:20 | P.DS_ITS ---
DS: Providers Provider Date of Service: 02/08/22 Date of admission: 02/05/22 23:38 Primary care physician: Los Jacques MD DS: Diagnosis Discharge Diagnosis (1) Cellulitis: Status: Acute DS: Summary Hospital Course Hospital Course: Date of Service: 02/05/22 Chief Complaint: Right foot swelling/redness This is a 66-year-old male with pertinent history of atrial fibrillation on Coumadin, essential hypertension, rheumatoid arthritis on Humira/methotrexate, COPD, JENNIFER on CPAP presents to the emergency department for evaluation of right lower extremity swelling/redness/erythema.? Patient states it has been ongoing for a while but has worsened in the last 3 days.? It is associated with pain.? No purulent discharge.? No fever or chills.? Patient states he went to his senior compliance officer yesterday and had a callus removed.? He was prescribed p.o. antibiotics but he did not take it as his national sales's had recommended to see them before he took any antibiotics.? Patient went to his national sales's office today who recommended the patient to go to the ER for IV antibiotics and admission.? He denies chest discomfort, palpitation, shortness of breath, abdominal pain, changes in urinary or bowel habits. Hospital course 66yo M with AF on warfarin, HTN, RA on adalimumab, COPD, JENNIFER on CPAP sent in by national sales for RLE redness/swelling # Right lower extremity cellulitis, nonpurulent, pedal has received 3 days of IV vancomycin blood culture showed no growth redness and swelling has significantly improved but still red and swollen and calf patient is eager to be discharged home since patient is hemodynamically stable will discharge home on by mouth doxycycline 1 tablet twice daily for 10 days # RA resume methotrexate + adalimumuab after infection is cleared. # JENNIFER continue nocturnal CPAP # chronic AF on warfarin INR 1.8 continue diltiazem recommend to follow PT INR closely while on antibiotics # R-sided HF, chronic - continue bumetanide # HTN is stable BP continue diltiazem + lisinopril # COPD -low symptoms of shortness of breath or chest pain, continue triple controller inhaler, and prn nebulizer treatments Time Spent with Patient Time attestation: Total time managing care of this patient today ____ minutes. Discharge coordination time: Greater than 30 minutes Quality: Safe Use of Opioids Does Pt have an Active Cancer Diagnosis on the Problem List?: No Quality: Stroke Does the patient have a stroke diagnosis?: No Physical Exam Vital Signs: Vital Signs: Last Vital Signs Temp 97.2 F 02/08/22 07:46 Pulse 63 02/08/22 07:46 Resp 18 02/08/22 07:46 BP 120/68 02/08/22 07:46 Pulse Ox 96 02/08/22 07:46 O2 Del Method 02/08/22 07:46 O2 Flow Rate 2 02/06/22 07:58 BMI result Body Mass Index 34.0 Const: Other: Gen: in no acute distress HEENT: sclera anicteric, moist mucus membranes Neck: supple Lungs: clear to auscultation bilaterally Heart: regular rate and rhythm, no murmurs Abd: soft, non-tender, non-distended Ext: RLE swollen to knee,with erythema, swelling and redness significantly improved since admission Psych: appropriate affect ? DS: Data Data Completed and Pending Labs on day of discharge: Laboratory Results - last 24 hr 02/08/22 02/08/22 02/08/22 08:12 08:12 08:12 WBC 8.3 RBC 4.52 L D Hgb 15.0 D Hct 45.9 D MCV 101.5 H MCH 33.2 H MCHC 32.7 RDW 14.2 Plt Count 267 D MPV 9.5 Absolute Nucleated RBC 0.000 Nucleated RBC % (auto) 0.0 PT INR Creatinine 0.85 Estim Creat Clear Calc 120.9 Estimated GFR > 60 C-Reactive Protein 4.95 H Vancomycin Trough 13.7 02/08/22 08:12 WBC RBC Hgb Hct MCV MCH MCHC RDW Plt Count MPV Absolute Nucleated RBC Nucleated RBC % (auto) PT 22.5 H INR 1.9 H Creatinine Estim Creat Clear Calc Estimated GFR C-Reactive Protein Vancomycin Trough Preliminary micro results at discharge 02/05/22 15:00 Blood Culture - Preliminary Blood - Venous No growth after 48 hours. 02/05/22 13:32 Blood Culture - Preliminary Blood - Venous No growth after 48 hours. Discharge Plan Discharge Anticipated Discharge Date/Time: 02/08/22 11:14 Patient Disposition: Home, Self-Care Discharge Diagnosis: Right lower extremity cellulitis Referrals: oLs Jacques MD [Primary Care Provider] - 1 Week Discharge Medications: New doxycycline hyclate 100 mg capsule 100 mg PO BID Qty: 20 0RF Continued ipratropium-albuterol 0.5 mg-3 mg(2.5 mg base)/3 mL solution for nebulization 3 ml inhalation Q4-6H PRN (Reason: wheezing) 30 Days Qty: 270 6RF diltiazem HCl 180 mg capsule,extended release 24hr 180 mg PO DAILY Qty: 90 3RF pravastatin 20 mg tablet 20 mg PO DAILY Qty: 90 3RF omeprazole 20 mg capsule,delayed release(DR/EC) 20 mg PO DAILY Qty: 90 3RF warfarin 5 mg tablet 5 mg PO .COMPLEX 90 Days Qty: 110 1RF Protocol: Dose Management Condition: Wednesday (Week One) Dose/Route: 5 mg Instruction: 1 x 5 mg tablet Condition: Wednesday Dose/Route: 7.5 mg Instruction: 1.5 x 5 mg tablets Condition: Wednesday Dose/Route: 5 mg Instruction: 1 x 5 mg tablet Condition: Wednesday Dose/Route: 5 mg Instruction: 1 x 5 mg tablet Condition: Dose/Route: 5 mg Instruction: 1 x 5 mg tablet Condition: Wednesday Dose/Route: 5 mg Instruction: 1 x 5 mg tablet Condition: Wednesday Dose/Route: 5 mg Instruction: 1 x 5 mg tablet Condition: Wednesday (Week Two) Dose/Route: 5 mg Instruction: 1 x 5 mg tablet Condition: Wednesday Dose/Route: 7.5 mg Instruction: 1.5 x 5 mg tablets Condition: Wednesday Dose/Route: 5 mg Instruction: 1 x 5 mg tablet Condition: Wednesday Dose/Route: 5 mg Instruction: 1 x 5 mg tablet Condition: Dose/Route: 5 mg Instruction: 1 x 5 mg tablet Condition: Wednesday Dose/Route: 5 mg Instruction: 1 x 5 mg tablet Condition: Wednesday Dose/Route: 5 mg Instruction: 1 x 5 mg tablet Protocol Text: Adjustment Start Date: Wednesday01/28/22 INR Value: 2.8 INR Date: 01/28/22 Recheck Date: 02/11/22 Additional Instructions: cont reg dosing Rx Instructions: 5 mg orally take one tab daily or as directed by coumadin clinic; lisinopril 5 mg tablet 5 mg PO DAILY Qty: 90 3RF Trelegy Ellipta 200-62.5-25 mcg blister with device 1 inh inhalation DAILY 30 Days Qty: 1 6RF Humira(CF) Pen 40 mg/0.4 mL pen injector kit See Rx Instructions subcut .COMPLEX Qty: 2 2RF Rx Instructions: inject one - 40 mg/0.4 mL pen every 2 weeks subcut methotrexate sodium 2.5 mg tablet 15 mg PO QWEEK Qty: 24 0RF Rx Instructions: take 6 tabs by mouth weekly. acetaminophen 650 mg Tablet 650 mg PO Q4H PRN (Reason: Pain) folic acid 1 mg tablet 3 mg PO DAILY 90 Days Qty: 270 3RF (DME) CPAP See Rx Instructions .Route .MEDSUPPLY Qty: 1 0RF Rx Instructions: As directed albuterol sulfate 90 mcg/actuation HFA aerosol inhaler 2 puff inhalation Q4-6H PRN (Reason: shortness of breath or wheezing) 90 Days Qty: 1 4RF bumetanide 2 mg tablet 2 mg PO BID 30 Days Qty: 60 6RF cholecalciferol (vitamin D3) 25 mcg (1,000 unit) capsule 25 mcg PO DAILY ascorbic acid (vitamin C) 500 mg capsule 1,000 mg PO DAILY Discharge Orders: Discharge Order (Routine); Ordered 02/08/22 Ordered By: Melva Paz Diet: Advance to usual diet Activity on Discharge: As tolerated Stand Alone Forms: Patient Portal Discharge page Care Plan Goals: Right leg swelling and redness has improved keep right leg elevated take doxycycline 1 tablet twice daily for 7 days return to check with fever chills worsening redness or swelling. INR 1.8 on 02/07, INR 1.9 on 02/08 continue current dose of Coumadin follow PT INR closely while on antibiotic Health Concerns: Continue all home medications except hold Humira and methotrexate and resume after follow-up with treating provider after finishing treatment for infection. Plan of Treatment: Follow-up with primary care physician Assessment: As above
--- NOTE | 2022-02-08 11:39 | MHC.CM.PN ---
order for home, self care; CM acknowledge.
== END 2022-02-08 13:27 | disposition home or self-care (01) | DRG 603 ==
LOC: HO.ED 21:08 → HO.EDOVER 23:42 → HO.S3 02-06 17:32
PROVIDERS: Family Medicine; Nurse Practitioner Family; Admitting Provider Student in an Organized Health Care Education/Training Program; Emergency Provider Internal Medicine; PCP Internal Medicine; Visit Provider Hospitalist
DX: L03.115 Cellulitis of right lower limb (principal); I48.20 Chronic atrial fibrillation, unspecified; J44.9 Chronic obstructive pulmonary disease, unspecified; I11.0 Hypertensive heart disease with heart failure; I50.812 Chronic right heart failure; M06.00 Rheumatoid arthritis without rheumatoid factor, unspecified site; G47.33 Obstructive sleep apnea (adult) (pediatric); Z20.822 Contact with and (suspected) exposure to COVID-19; Z87.891 Personal history of nicotine dependence; Z88.0 Allergy status to penicillin; Z79.01 Long term (current) use of anticoagulants; Z79.51 Long term (current) use of inhaled steroids; Z79.899 Other long term (current) drug therapy
CPT/HCPCS: 36415; 80048; 80076; 80202; 82565; 83605; 85025; 85027; 85610; 85652; 86140; 87040; 87635; 94640; 94660; 99212; 99285; J3370

== ENCOUNTER → 2022-02-09 12:35 | Outpatient (BNVA) | payer MEDICARE, MEDICAID, SELFPAY | PROVIDERS: PCP Internal Medicine; Visit Provider Internal Medicine | DX: I48.19 Other persistent atrial fibrillation (principal); Z79.01 Long term (current) use of anticoagulants; Z51.81 Encounter for therapeutic drug level monitoring | CPT/HCPCS: 99211 ==

== ENCOUNTER 2022-02-11 08:31 | Outpatient (REF) | payer MEDICARE, MEDICAID, SELFPAY ==
--- NOTE | ~2022-02-11 | US_ITS ---
EXAMINATION: US VENOUS ULTRASOUND WITH DOPPLER LOWER EXTREMITY, RIGHT CLINICAL INFORMATION: History of deep vein thrombosis. Acute embolism. Leg swelling. COMPARISON: Lower extremity ultrasound from 03/05/2021. TECHNIQUE: Ultrasound of the deep veins is performed from the hip to the calf with compression sonography and color and pulse Doppler assessment. Spectral analysis with color-flow imaging is performed. FINDINGS: The common femoral vein is compressible and exhibits a normal phasic waveform; this suggests that the iliac veins are widely patent above. Within the proximal thigh, the visualized profunda femoris vein is normal. The examined greater saphenous vein and saphenofemoral junction are normal. Superficial femoral vein is patent in the proximal, mid and distal thigh. Popliteal vein is normal to the level of the trifurcation. On compression redd scale and color Doppler images, the visualized deep calf veins are grossly patent. No evidence of Phan's cyst. Edema is present in subcutaneous tissues of the calf. Prominent right inguinal lymph node has a short axis dimension of 1.6 cm. Inguinal lymphadenopathy also observed on prior ultrasound of 03/05/2021. US/US venous duplex LE RT IMPRESSION: * No evidence of deep vein thrombosis in the right lower extremity. * There is edema of subcutaneous tissues of the lower extremity. * Chronic mild lymphadenopathy is noted in the right inguinal region.
== END 2022-02-11 08:32 | disposition home or self-care (01) ==
LOC: HO.US 08:31
PROVIDERS: PCP Internal Medicine; Visit Provider Nurse Practitioner Family
DX: I82.401 Acute embolism and thrombosis of unspecified deep veins of right lower extremity (principal)
CPT/HCPCS: 93971

== ENCOUNTER → 2022-02-18 10:19 | Outpatient (BNVA) | payer MEDICARE, MEDICAID, SELFPAY | PROVIDERS: PCP Internal Medicine; Visit Provider Internal Medicine | DX: Z79.01 Long term (current) use of anticoagulants (principal) ==

== ENCOUNTER 2022-02-19 10:19 | Outpatient (REF) | payer MEDICARE, MEDICAID, SELFPAY ==
--- NOTE | ~2022-02-19 | US_ITS ---
EXAMINATION: ULTRASOUND EXTREMITY NONVASCULAR LIMITED CLINICAL INFORMATION: Enlarged lymph nodes. COMPARISON: Previous right leg ultrasound exams most recent March 2021. TECHNIQUE: Grayscale and color imaging of the right groin using a linear transducer. FINDINGS: There are 2 right inguinal lymph nodes. There is a 2.6 x 0.6 x 1.3 cm in sagittal AP and transverse dimensions right inguinal lymph node. This is normal in size and demonstrates normal ultrasound morphology and flow. There is an adjacent enlarged right inguinal lymph node that measures 5 x 1.5 x 3.5 cm in sagittal AP and transverse dimension. This is increased in size from 4.1 x 4.1 x 1.7 cm on previous exam. This demonstrates normal ultrasound morphology and flow. US/US extremity nonvascular vasques IMPRESSION: Enlarged right inguinal lymph node gradually increasing in size compared to prior exams. This demonstrates normal ultrasound morphology and flow. This would be amenable to ultrasound-guided aspiration/biopsy if clinically indicated.
[2022-02-19 11:12] LABS: MANUAL DIFF FLAG NO
[2022-02-19 11:27] LABS: Basophils Absolute Auto 0.1 X10*3/uL (0.0-0.2); Basophils Percent Auto 0.7 % (0-2); Eosinophils Absolute Auto 0.2 X10*3/uL (0.0-0.4); Eosinophils Percent Auto 2.4 % (0-4); Hematocrit 44.4 % (42.0-52.0); Hemoglobin 14.7 g/dl (14.0-18.0); Imm Gran Abs Auto 0.05 X10*3/uL (0.00-0.03); Imm Gran Pct Auto 0.5 % (0.0-0.4); Lymphocytes Absolute Auto 2.4 X10*3/uL (1.2-4.9); Lymphocytes Percent Auto 26.3 % (20-40); Mean Corpuscular HGB Conc 33.1 g/dl (31.0-36.0); Mean Corpuscular Hemoglobin 33.5 pg (27.0-33.0); Mean Corpuscular Volume 101.1 fL (80.0-98.0); Mean Platelet Volume 9.6 fL (9.4-12.4); Monocytes Absolute Auto 0.7 X10*3/uL (0.1-1.2); Monocytes Percent Auto 7.5 % (2-11); Neutrophils Absolute Auto 5.7 x10*3/uL (2.0-8.3); Neutrophils Percent Auto 62.6 % (45-73); Platelet Count 259 X10*3/uL (160-400); Red Blood Count 4.39 X10*6/uL (4.60-5.80); Red Cell Distribution Width 14.3 % (11.0-16.0); White Blood Count 9.2 X10*3/uL (4.8-10.8)
[2022-02-19 11:45] LABS: Alanine Aminotransferase 22 U/L (0-40); Aspartate Amino Transferase 20 U/L (5-37); C Reactive Protein 0.83 mg/dL (< or = 0.50); Estimated Glomerular Filt Rate > 60
[2022-02-19 12:24] LABS: Erythrocyte Sedimentation Rate 13 MM/HR (0-15)
== END 2022-02-19 10:20 | disposition home or self-care (01) ==
LOC: HO.HMGCX 10:19
PROVIDERS: Absent Provider Nurse Practitioner Family; PCP Internal Medicine; Visit Provider Internal Medicine
DX: R59.0 Localized enlarged lymph nodes (principal); M06.00 Rheumatoid arthritis without rheumatoid factor, unspecified site; Z79.899 Other long term (current) drug therapy
CPT/HCPCS: 36415; 76882; 82565; 84450; 84460; 85025; 85652; 86140

== ENCOUNTER → 2022-02-25 12:52 | Outpatient (BNVA) | payer MEDICARE, MEDICAID, SELFPAY | PROVIDERS: PCP Internal Medicine; Visit Provider Internal Medicine | DX: Z79.01 Long term (current) use of anticoagulants (principal) ==

== ENCOUNTER → 2022-03-04 13:17 | Outpatient (BNVA) | payer MEDICARE, MEDICAID, SELFPAY | PROVIDERS: PCP Internal Medicine; Visit Provider Internal Medicine | DX: Z79.01 Long term (current) use of anticoagulants (principal) ==

== ENCOUNTER → 2022-03-09 08:23 | Outpatient (BNVA) | payer MEDICARE, MEDICAID, SELFPAY | PROVIDERS: PCP Internal Medicine; Visit Provider Nurse Practitioner Family | DX: M06.00 Rheumatoid arthritis without rheumatoid factor, unspecified site (principal); M79.89 Other specified soft tissue disorders; M79.671 Pain in right foot; M79.672 Pain in left foot | CPT/HCPCS: 99212 ==

== ENCOUNTER 2022-03-13 07:30 | Outpatient (RCR) | payer MEDICARE, MEDICAID, SELFPAY ==
[2022-03-13 07:57] VITALS: BP 136/58; PULSE 55
[2022-03-26 08:22] VITALS: BP 126/68; BP 130/58
[2022-04-07 11:21] VITALS: BP 150/64; BP 154/70
[2022-04-30 07:00] VITALS: BP 126/50; BP 138/56
[2022-05-05 07:00] VITALS: BP 114/56; BP 128/70
[2022-05-07 07:02] VITALS: BP 140/64
[2022-05-14 07:11] VITALS: BP 112/56; BP 132/60
[2022-05-21 06:58] VITALS: BP 112/52; BP 122/54
[2022-05-26 09:19] VITALS: BP 120/68; BP 134/62
[2022-05-28 07:33] VITALS: BP 112/52; BP 130/62
[2022-06-23 07:48] VITALS: BP 125/60; BP 135/50
[2022-06-25 09:39] VITALS: BP 122/60; BP 132/58
[2022-07-02 07:00] VITALS: BP 114/58; BP 144/68
[2022-07-07 07:10] VITALS: BP 120/54; BP 122/58
--- NOTE | 2022-07-22 10:37 | MHC.PR.IN ---
[address] [phone] F: [phone] Pulmonary Rehabilitation Individual Treatment Plan Konrad Ferrera is a 67 year old (M) who was referred to the Pulmonary Rehabilitation program by Tyler Masters. This patient who has a primary diagnosis of COPD will begin pulmonary rehabilitation with monitored exercise and education to optimize both physical and social performance, autonomy, increase strength and endurance, and control dypsnea. The following information was gathered from the patient: Smoking History Current smoking status: Former Smoker Years smoked: 49 Last time smoked: Quit Date: Assistance with quitting needed: Past Medical History Medical History: Cardiac Disorders COPD Sleep Apnea Surgeries: Past Pulmonary Hospitalizations # of hospitalizations in the past year: 0 # of ER vists due to breathing troubles in the past year: 0 Current Pulmonary Medications Allergy History Allergies: Current Oxygen Use Supplemental Oxygen Device Used: None Liter flow: How often: N/A Pulmonary History Cough: Yes: occasionally in AM Sputum: Yes: clear Sleep device: Yes Other pulmonary devices: Peak flow meter: No Nebulizer: Yes Suction: No Ventilator: No Secretion clearance: No PEP: No Influenza vaccine: Pneumonia vaccine: Patient Questionaire Scores MRC Dyspnea Scale (mRC): CAT Score: 11 PHQ-9 Score: 11 Pulmonary Function Test and Vital Signs Pulmonary Function Test Date of PFT FVC Actual % FVC Predicted % FEV1 Actual % FEV1 Predicted % FEV1/FVC Actual % FEV1/FVC Predicted % DLCO Vital Signs Heart Rate 55 Blood Pressure 136/58 SpO2 96% Respiratory Rate 14 slightly labored Six Minute Walk Test Supplemental Oxygen O2 L/min: FiO2: Resting Vitals SpO2: 96% BP: 100/64mmHg HR: 82 bpm Total Distance 1118 Number/ Time of Rests (sec) 0 LITZY 4 METS 2.60 SpO2 91 HR (bpm) 107 MPH 2.08 Meters/Minute 61 Post-walk Vitals SpO2: 97 BP: 132/68 HR: 89 Performance Observations Walked at a steady pace without an assistive device, Did not stop to rest Pulmonary Rehabilitation Plan Topic Problem Goal Plan Comment Education This is Konrad's 3rd time at pulmonary rehab, he is knowledgeable about managing COPD and exacerbation prevention. Hypoxia N/A, no s/s of hypoxemia Psychosocial No reported psychosocial impairments Review screening results Benefits of exercise Relaxation techniques Konrad manages his stress by doing things he enjoys such as gardening. Activities of Daily Living N/A ADL performance with pacing and pursed lip breathing Educate on pursed lip breathing and pacing with stairs and activity Konrad manages his shortness of breath on stairs and with activity by pacing and pursed lip breathing. Nutrition & Weight Management Underweight BMI 19 to 30 Lose weight during program Prevent further weight gain Tobacco Managment NA Smoked for 46yrs Medication N/A, pt reports compliance w/ prescribed medications Educated Konrad on prescribed medications, purpose,side effects,schedule and compliance. Inhaled Medication N/A Konrad able to return demonstration of MDI Secretion Management N/A, pt able to self manage secretions Patient demonstrates effective cough and airway clearance Patient demonstrates effective cough and airway clearance Exercise & Fitness Decreased strength & endurance Pulmonary Rehab 2-3x/week Weight or resistance training 2-3x/week Aerobic Exercise: 30-60mins x 9 weeks Review benefits & core components of exercise program Review frequency and duration of exercise Review exercise intensity LITZY RPD 3-4/10 GENTLE STRETCHES X 10 MINUTES Diabetes Management Does patient have DM?: No Diabetes Type: Current Blood Glucose Level: Current A1C Level: Self Check: Patient's Goals and Concerns Lose weight, breathe better. Range Technician Review I have reviewed the outcome assessment, treatment plan, goals, and problem list. The treatment plan and goals support the patient's needs and abilities, and thereby recommend that the exercise plan be completed as documented. Special precautions or modifications to the treatment plan include:
--- NOTE | 2022-09-23 08:55 | MHC.PR.DC ---
[address] [phone] F: [phone] Pulmonary Rehabilitation Discharge Konrad Ferrera is a 67 year old (M) who was referred to the Pulmonary Rehabilitation program by Tyler Masters. This patient who has a primary diagnosis of COPD has completed 10 sessions of the pulmonary rehabilitation program with monitored exercise and education to optimize both physical and social performance, autonomy, increase strength and endurance, and control dypsnea. They were evaluated on . Discharge summary and tests are below. Initial MRC Score: Discharge MRC Score: Six Minute Walk Test Initial 6MWT Discharge 6MWT Supplemental Oxygen O2 L/min: FiO2: O2 L/min: FiO2: Resting Vitals SpO2: 96% BP: 100/64mmHg HR: 82 bpm SpO2: % BP: mmHg HR: bpm Total Distance (ft) 1118 Number/ Time of Rests (sec) 0 LITZY 4 Walk Vitals SpO2: 91 HR: 107 SpO2: HR: Post-Walk Vitals SpO2: 97 BP: 132/68 HR: 89 SpO2: BP: HR: Performance Observations Walked at a steady pace without an assistive device, Did not stop to rest Not abel to complete 6 minute walk Exercise Assessment on : Pre-exercise Post-exercise SpO2 Heart Rate LITZY METS Exercise Assessment on : Pre-exercise Post-exercise SpO2 Heart Rate LITZY METS Exercise Assessment on : Pre-exercise Post-exercise SpO2 Heart Rate LITZY METS Topic Education/Progress Progress Comments Education Hypoxia Current oxygen Use: Room Air Psychosocial PHQ-9 Score: 11 Activities of Daily Living Nutrition and Weight Managment Current weight: 128KG, 282 BMI: Weight change: Tobacco Stages of Change: Tobacco Use: Cigerettes/Day: Any nicotine replacement: Any cessation medication: Smoking quit date: Smokeless tobacco use and amount: Medications Inhaled Medications Patient verbalizes correct technique of: MDI: DPI: SMI: NEBULIZER: Secretion Management Patient provides adequate return demonstration of: Controlled cough: Mason cough: Acapella/ PEP Device: CPT: Sputum management: Exercise and Fitness Aerobic Exercise Frequency: Target heart range: Heart rate range: SpO2 Range: LITZY RPD: Time (minutes): O2 use with exercise: Current HEP: Discharge Assessment: Discharge Reason: Pt has stopped participating in pulmonary rehab due to health issues. Discharge Recommendation: :
== END 2022-10-14 07:54 | disposition home or self-care (01) ==
LOC: HO.PR 07:30
PROVIDERS: PCP Internal Medicine; Visit Provider Internal Medicine Pulmonary Disease
DX: J44.9 Chronic obstructive pulmonary disease, unspecified (principal)
CPT/HCPCS: 94625

== ENCOUNTER 2022-03-13 09:08 | Outpatient (REF) | payer MEDICARE, MEDICAID, SELFPAY ==
--- NOTE | ~2022-03-13 | XR_ITS ---
EXAMINATION: XR HAND, RIGHT CLINICAL INFORMATION: Rheumatoid arthritis. COMPARISON: None TECHNIQUE: PA, lateral, and oblique views of the right hand. FINDINGS: Bony alignment and mineralization are normal. There is a neutral ulnar variance. There is marked osteoarthritic change of the interphalangeal joint of the thumb. There is very minimal osteoarthritic change of the second through fifth proximal and distal interphalangeal joints, most pronounced of the fifth proximal interphalangeal joint. There is osteoarthritic change of the first through fourth metacarpophalangeal joints. No acute fracture or dislocation is seen. A tiny accessory ossification center or chronic, well-corticated avulsion fragment is seen adjacent to the ulnar styloid. The proximal and distal carpal rows are intact. There is no abnormal bone erosion. No focal soft tissue swelling, gas or foreign body is seen. XR/XR hand LT min 3V IMPRESSION: There are multi-level osteoarthritic changes of the right hand and wrist. No focal bone erosion is seen. There is no acute fracture or dislocation. EXAMINATION: XR HAND, LEFT CLINICAL INFORMATION: Rheumatoid arthritis. COMPARISON: None TECHNIQUE: PA, lateral, and oblique views of the left hand. FINDINGS: Bony alignment and mineralization are normal. There is a neutral ulnar variance. There is mild to moderate osteoarthritic change of the interphalangeal joint of the thumb, the second through fifth proximal and distal interphalangeal joints, and of the first and second metacarpophalangeal joints. There is moderate osteoarthritic change of the first carpometacarpal joint. No fracture or dislocation is seen. The proximal and distal carpal rows are intact. There is no abnormal bone erosion. No focal soft tissue swelling, gas or foreign body seen. IMPRESSION: There are degenerative changes of the left hand and wrist. No focal bone erosion is seen. There is no fracture or dislocation.
--- NOTE | ~2022-03-13 | XR_ITS ---
EXAMINATION: XR HAND, RIGHT CLINICAL INFORMATION: Rheumatoid arthritis. COMPARISON: None TECHNIQUE: PA, lateral, and oblique views of the right hand. FINDINGS: Bony alignment and mineralization are normal. There is a neutral ulnar variance. There is marked osteoarthritic change of the interphalangeal joint of the thumb. There is very minimal osteoarthritic change of the second through fifth proximal and distal interphalangeal joints, most pronounced of the fifth proximal interphalangeal joint. There is osteoarthritic change of the first through fourth metacarpophalangeal joints. No acute fracture or dislocation is seen. A tiny accessory ossification center or chronic, well-corticated avulsion fragment is seen adjacent to the ulnar styloid. The proximal and distal carpal rows are intact. There is no abnormal bone erosion. No focal soft tissue swelling, gas or foreign body is seen. XR/XR hand RT min 3V IMPRESSION: There are multi-level osteoarthritic changes of the right hand and wrist. No focal bone erosion is seen. There is no acute fracture or dislocation. EXAMINATION: XR HAND, LEFT CLINICAL INFORMATION: Rheumatoid arthritis. COMPARISON: None TECHNIQUE: PA, lateral, and oblique views of the left hand. FINDINGS: Bony alignment and mineralization are normal. There is a neutral ulnar variance. There is mild to moderate osteoarthritic change of the interphalangeal joint of the thumb, the second through fifth proximal and distal interphalangeal joints, and of the first and second metacarpophalangeal joints. There is moderate osteoarthritic change of the first carpometacarpal joint. No fracture or dislocation is seen. The proximal and distal carpal rows are intact. There is no abnormal bone erosion. No focal soft tissue swelling, gas or foreign body seen. IMPRESSION: There are degenerative changes of the left hand and wrist. No focal bone erosion is seen. There is no fracture or dislocation.
== END 2022-03-13 09:09 | disposition home or self-care (01) ==
LOC: HO.XRAY 09:08
PROVIDERS: PCP Internal Medicine; Visit Provider Nurse Practitioner Family
DX: M06.00 Rheumatoid arthritis without rheumatoid factor, unspecified site (principal); M79.641 Pain in right hand
CPT/HCPCS: 73130

== ENCOUNTER → 2022-03-17 14:57 | Outpatient (BNVA) | payer MEDICARE, MEDICAID, SELFPAY | PROVIDERS: PCP Internal Medicine; Referring Provider Internal Medicine; Visit Provider Surgery | DX: R59.0 Localized enlarged lymph nodes (principal) | CPT/HCPCS: 99202 ==

== ENCOUNTER → 2022-03-18 11:16 | Outpatient (BNVA) | payer MEDICARE, MEDICAID, SELFPAY | PROVIDERS: PCP Internal Medicine; Visit Provider Internal Medicine | DX: Z79.01 Long term (current) use of anticoagulants (principal) ==

== ENCOUNTER → 2022-03-20 10:41 | Outpatient (BNVA) | payer MEDICARE, MEDICAID, SELFPAY | PROVIDERS: PCP Internal Medicine; Visit Provider Internal Medicine | DX: Z79.01 Long term (current) use of anticoagulants (principal) ==

== ENCOUNTER 2022-03-24 07:49 | Outpatient (REF) | payer MEDICARE, MEDICAID, SELFPAY ==
--- NOTE | ~2022-03-24 | US_ITS ---
EXAMINATION: US BIOPSY LYMPH NODE CLINICAL INFORMATION: Enlarged right groin lymph nodes. COMPARISON: None TECHNIQUE: Following explaining ultrasound-guided right groin lymph node biopsy procedure, benefits and risk, a written consent was obtained. Patient was placed supine and preliminary ultrasound imaging through the right groin was performed. An optimal site was selected and marked on the skin. 1% lidocaine was infiltrated at puncture site. Initially 22-gauge small needles were inserted through the skin into the right groin's largest lymph node and fine needle biopsy was obtained x3. A small skin incision was performed and a 22-gauge guide needle was advanced from the skin to the outer margin of the lymph node. Coaxially a biopsy gun was administered and 3 pass core biopsy was performed. Postprocedure, the guide needle was withdrawn and complete hemostasis achieved at puncture site. Patient tolerated procedure extremely well. FINDINGS: On preliminary ultrasound imaging, there are multiple lymph nodes visualized. The largest lymph node measuring 2.45 cm cm long by 0.845 cm in AP dimension. A 3 pass fine-needle biopsy was performed with a 22-gauge needle. Subsequently 3 pass 22-gauge core biopsies are performed of the same lymph node. Preliminary results revealed lymphocytes. Final reading pending. US/US guided fine needle asp IMPRESSION: Successful ultrasound-guided fine-needle and core biopsy of right inguinal lymph node was performed.
--- NOTE | ~2022-03-24 | US_ITS ---
EXAMINATION: US BIOPSY LYMPH NODE CLINICAL INFORMATION: Enlarged right groin lymph nodes. COMPARISON: None TECHNIQUE: Following explaining ultrasound-guided right groin lymph node biopsy procedure, benefits and risk, a written consent was obtained. Patient was placed supine and preliminary ultrasound imaging through the right groin was performed. An optimal site was selected and marked on the skin. 1% lidocaine was infiltrated at puncture site. Initially 22-gauge small needles were inserted through the skin into the right groin's largest lymph node and fine needle biopsy was obtained x3. A small skin incision was performed and a 22-gauge guide needle was advanced from the skin to the outer margin of the lymph node. Coaxially a biopsy gun was administered and 3 pass core biopsy was performed. Postprocedure, the guide needle was withdrawn and complete hemostasis achieved at puncture site. Patient tolerated procedure extremely well. FINDINGS: On preliminary ultrasound imaging, there are multiple lymph nodes visualized. The largest lymph node measuring 2.45 cm cm long by 0.845 cm in AP dimension. A 3 pass fine-needle biopsy was performed with a 22-gauge needle. Subsequently 3 pass 22-gauge core biopsies are performed of the same lymph node. Preliminary results revealed lymphocytes. Final reading pending. US/US biopsy lymph node IMPRESSION: Successful ultrasound-guided fine-needle and core biopsy of right inguinal lymph node was performed.
[2022-03-24] MEDS: Lidocaine HCl 1 % MPF 5 ML VIAL SUBCUT (09:33)
== END 2022-03-24 07:50 | disposition home or self-care (01) ==
LOC: HO.US 07:49
PROVIDERS: Radiology Diagnostic Radiology; PCP Internal Medicine; Visit Provider Surgery
DX: R59.0 Localized enlarged lymph nodes (principal)
CPT/HCPCS: 10005; 36415; 38505; 76942; 88172; 88173; 88177; 88184; 88185; 88300; 88305; 88333; 88341; 88342; 88360

== ENCOUNTER → 2022-03-30 16:29 | Outpatient (BNVA) | payer MEDICARE, MEDICAID, SELFPAY | PROVIDERS: PCP Internal Medicine; Visit Provider Internal Medicine | DX: Z79.01 Long term (current) use of anticoagulants (principal) ==

== ENCOUNTER → 2022-03-31 08:57 | Outpatient (BNVA) | payer MEDICARE, MEDICAID, SELFPAY | PROVIDERS: PCP Internal Medicine; Visit Provider Surgery | DX: R59.0 Localized enlarged lymph nodes (principal) | CPT/HCPCS: 99212 ==

== ENCOUNTER → 2022-04-15 12:11 | Outpatient (BNVA) | payer MEDICARE, MEDICAID, SELFPAY | PROVIDERS: PCP Internal Medicine; Visit Provider Internal Medicine | DX: Z79.01 Long term (current) use of anticoagulants (principal) ==

== ENCOUNTER 2022-04-24 08:00 | Outpatient (REF) | payer MEDICARE, MEDICAID, SELFPAY ==
[2022-04-24 11:32] LABS: MANUAL DIFF FLAG NO
[2022-04-24 11:53] LABS: Basophils Percent Auto 0.4 % (0-2); Eosinophils Absolute Auto 0.2 X10*3/uL (0.0-0.4); Eosinophils Percent Auto 2.3 % (0-4); Estimated Average Glucose 117 mg/dL; Hematocrit 45.9 % (42.0-52.0); Hemoglobin 14.7 g/dl (14.0-18.0); Hemoglobin A1c % 5.7 %; Imm Gran Abs Auto 0.06 X10*3/uL (0.00-0.03); Imm Gran Pct Auto 0.7 % (0.0-0.4); Lymphocytes Absolute Auto 2.3 X10*3/uL (1.2-4.9); Lymphocytes Percent Auto 25.5 % (20-40); Mean Corpuscular Hemoglobin 32.5 pg (27.0-33.0); Mean Corpuscular Volume 101.3 fL (80.0-98.0); Mean Platelet Volume 9.8 fL (9.4-12.4); Monocytes Absolute Auto 0.7 X10*3/uL (0.1-1.2); Monocytes Percent Auto 8.1 % (2-11); Neutrophils Absolute Auto 5.7 x10*3/uL (2.0-8.3); Platelet Count 248 X10*3/uL (160-400); Red Blood Count 4.53 X10*6/uL (4.60-5.80); Red Cell Distribution Width 14.3 % (11.0-16.0)
[2022-04-24 12:31] LABS: Erythrocyte Sedimentation Rate 10 MM/HR (0-15)
[2022-04-24 12:52] LABS: Alanine Aminotransferase 18 U/L (0-40); Albumin Level 4.2 g/dL (3.5-5.0); Alkaline Phosphatase 57 U/L (39-117); Anion Gap 13 (12-20); Aspartate Amino Transferase 30 U/L (5-37); Bilirubin Total 0.4 mg/dL (0.0-1.0); Blood Urea Nitrogen 19 mg/dL (9-16); C Reactive Protein 1.44 mg/dL (< or = 0.50); Calcium 9.3 mg/dL (8.4-10.2); Carbon Dioxide 30 mmol/L (22-29); Chloride 104 mmol/L (96-108); Cholesterol 191 mg/dL; Estimated Glomerular Filt Rate > 60; Glucose Random 111 mg/dL (60-115); HDL Cholesterol 34 mg/dL; LDL Cholesterol Calculated 116 mg/dl; Potassium 4.4 mmol/L (3.3-5.1); Sodium 143 mmol/L (135-145); Total Protein 6.8 g/dL (6.5-8.0); Triglycerides 208 mg/dL
[2022-04-24 13:03] LABS: Folate 15.6 ng/mL (> or = 4.0); Free T4 (Free Thyroxine) 0.94 ng/dL (0.71-1.85); Prostate Specific Antigen Scr 0.59 ng/mL (<0.05-4.0); Thyroid Stimulating Hormone 1.33 uIU/mL (0.32-4.0); Vitamin B12 497 pg/mL (200-900)
== END 2022-04-24 08:01 | disposition home or self-care (01) ==
LOC: HO.HMGCLDS 08:00
PROVIDERS: Absent Provider Nurse Practitioner Family; PCP Internal Medicine; Visit Provider Internal Medicine
DX: M06.00 Rheumatoid arthritis without rheumatoid factor, unspecified site (principal); E78.00 Pure hypercholesterolemia, unspecified; R73.02 Impaired glucose tolerance (oral); Z12.5 Encounter for screening for malignant neoplasm of prostate; Z79.899 Other long term (current) drug therapy
CPT/HCPCS: 36415; 80053; 80061; 82607; 82746; 83036; 84153; 84439; 84443; 85025; 85652; 86140

== ENCOUNTER → 2022-04-29 11:06 | Outpatient (BNVA) | payer MEDICARE, MEDICAID, SELFPAY | PROVIDERS: PCP Internal Medicine; Visit Provider Internal Medicine | DX: Z79.01 Long term (current) use of anticoagulants (principal) ==

== ENCOUNTER 2022-05-08 08:09 | Outpatient (REF) | payer MEDICARE, MEDICAID, SELFPAY ==
--- NOTE | ~2022-05-08 | XR_ITS ---
EXAMINATION: XR LUMBOSACRAL SPINE CLINICAL INFORMATION: Low back pain COMPARISON: None TECHNIQUE: Three views of the lumbosacral spine. FINDINGS: Multilevel degenerative changes, most significant in the lower lumbar region. No evidence of spondylolisthesis. Vertebral body heights appear grossly maintained. Diffuse aortic atherosclerosis is present. Soft tissues are otherwise unremarkable. XR/XR lumbar spine 2-3V IMPRESSION: Multilevel degenerative changes of the spine.
== END 2022-05-08 08:10 | disposition home or self-care (01) ==
LOC: HO.XRAY 08:09
PROVIDERS: PCP Internal Medicine; Visit Provider Nurse Practitioner Family
DX: M06.00 Rheumatoid arthritis without rheumatoid factor, unspecified site (principal); M54.50 Low back pain, unspecified; M79.89 Other specified soft tissue disorders; M79.671 Pain in right foot; M79.672 Pain in left foot; J44.9 Chronic obstructive pulmonary disease, unspecified; Z91.81 History of falling; Z79.899 Other long term (current) drug therapy
CPT/HCPCS: 72100; 99212

== ENCOUNTER 2022-05-14 08:15 | Outpatient (REF) | payer MEDICARE, MEDICAID, SELFPAY ==
--- NOTE | ~2022-05-14 | XR_ITS ---
STUDY: 3 VIEWS OF BILATERAL KNEES CLINICAL INDICATION: Pain COMPARISON: None FINDINGS: Left knee: Tricompartmental osteoarthritis, worst in the medial compartment. No acute fractures or dislocations. No joint effusion. Vascular calcifications present. Right knee: Tricompartmental osteoarthritis, worst within the medial compartment. No acute fractures or dislocations. Vascular calcifications present. Overlying soft tissue swelling noted at the patella. XR/XR knee standing BI IMPRESSION: Bilateral knee osteoarthritis, right greater than left and worse in the medial compartment. No acute fractures or dislocations.
--- NOTE | ~2022-05-14 | XR_ITS ---
STUDY: 3 VIEWS OF BILATERAL KNEES CLINICAL INDICATION: Pain COMPARISON: None FINDINGS: Left knee: Tricompartmental osteoarthritis, worst in the medial compartment. No acute fractures or dislocations. No joint effusion. Vascular calcifications present. Right knee: Tricompartmental osteoarthritis, worst within the medial compartment. No acute fractures or dislocations. Vascular calcifications present. Overlying soft tissue swelling noted at the patella. XR/XR knee LT 2V IMPRESSION: Bilateral knee osteoarthritis, right greater than left and worse in the medial compartment. No acute fractures or dislocations.
--- NOTE | ~2022-05-14 | XR_ITS ---
STUDY: 3 VIEWS OF BILATERAL KNEES CLINICAL INDICATION: Pain COMPARISON: None FINDINGS: Left knee: Tricompartmental osteoarthritis, worst in the medial compartment. No acute fractures or dislocations. No joint effusion. Vascular calcifications present. Right knee: Tricompartmental osteoarthritis, worst within the medial compartment. No acute fractures or dislocations. Vascular calcifications present. Overlying soft tissue swelling noted at the patella. XR/XR knee RT 2V IMPRESSION: Bilateral knee osteoarthritis, right greater than left and worse in the medial compartment. No acute fractures or dislocations.
== END 2022-05-14 08:16 | disposition home or self-care (01) ==
LOC: HO.HOSX 08:15
PROVIDERS: PCP Internal Medicine; Visit Provider Orthopaedic Surgery
DX: I48.19 Other persistent atrial fibrillation (principal); M17.0 Bilateral primary osteoarthritis of knee; Z51.81 Encounter for therapeutic drug level monitoring; Z79.01 Long term (current) use of anticoagulants
CPT/HCPCS: 20610; 73560; 73565; 99212; J1100

== ENCOUNTER → 2022-05-20 12:56 | Outpatient (BNVA) | payer MEDICARE, MEDICAID, SELFPAY | PROVIDERS: PCP Internal Medicine; Visit Provider Internal Medicine | DX: Z79.01 Long term (current) use of anticoagulants (principal) ==

== ENCOUNTER 2022-05-25 14:10 | Outpatient (REF) | payer MEDICARE, MEDICAID, SELFPAY ==
--- NOTE | ~2022-05-25 | CT_ITS ---
EXAMINATION: CT CHEST WITHOUT CONTRAST CLINICAL INFORMATION: Interstitial lung disease. Lung nodules. COMPARISON: None available. TECHNIQUE: Multidetector volumetric CT imaging of the chest was done. Axial MIP volume rendering provided. Sagittal and coronal reformatted images were obtained. This CT examination was performed using dose optimization techniques as appropriate, variously including the following: *Automated exposure control *Adjustment of mA and/or kV according to patient size (this includes techniques or standardized protocols for targeted exams where dose is matched to indication/reason for exam; i.e. extremities or head) *Use of iterative reconstruction technique DLP: 306 mGy-cm FINDINGS: FLIGHT SECURITY SPECIALIST: Well-inflated lungs with deformity left lateral chest wall. LUNGS: There is likely paraseptal emphysema with small cysts in both lung apices. Scattered pulmonary nodules are seen bilaterally. There is a 4 mm left upper lobe nodule, new, image 173/5, 5 mm nodule seen in left upper lobe previously on axial image 50/8 is not seen, 3 mm nodule left apex image 111/5 is stable. 3 mm new nodule right upper lobe axial image 225/5, stable. 2 mm nodule right upper lobe peripherally based axial image 237/5 is new, 1 cm nodule right upper lobe axial image 253/5 has increased. It previously measured 6 x 7 mm. Minimal atelectatic changes or scarring is seen in left lung base.. No new nodules seen. MEDIASTINUM: Thyroid lobes are symmetrical and normal. Central trachea and the bronchi are widely patent. Heart size and the great vessels are normal caliber. Small shotty lymph nodes are seen in the mediastinum. No pericardial effusion seen. CORONARY ARTERY CALCIFICATION: Mild coronary artery calcifications are present. PLEURA: There is no pleural effusion. No pleural mass or thickening. AXILLA: Small shotty lymph nodes are seen in bilateral axilla. UPPER ABDOMEN: Visualized liver, spleen, pancreas appears unremarkable. There are multiple bilateral renal cysts. OSSEOUS STRUCTURES: There is deformity of left mid and lateral chest wall likely related to injury. There are healing bilateral rib fractures. CT/CT chest wo IV con IMPRESSION: Slight interval increase in the index nodule in right upper lobe now measuring 1 cm compared to 6 x 7 mm on the previous study. There are several additional nodules visualized. New 3 mm nodule in the right upper lobe. Consider PET/CT exam. No interval abnormal size mediastinal or axillary lymphadenopathy. Fleischner guidelines were followed.
== END 2022-05-25 14:11 | disposition home or self-care (01) ==
LOC: HO.CT 14:10
PROVIDERS: PCP Internal Medicine; Visit Provider Internal Medicine Pulmonary Disease
DX: R91.8 Other nonspecific abnormal finding of lung field (principal)
CPT/HCPCS: 71250

== ENCOUNTER → 2022-05-26 08:26 | Outpatient (BNVA) | payer MEDICARE, MEDICAID, SELFPAY | PROVIDERS: PCP Internal Medicine; Visit Provider Internal Medicine Pulmonary Disease | DX: J44.9 Chronic obstructive pulmonary disease, unspecified (principal); R60.0 Localized edema; R91.8 Other nonspecific abnormal finding of lung field; G47.33 Obstructive sleep apnea (adult) (pediatric) | CPT/HCPCS: 99212 ==

== ENCOUNTER → 2022-06-03 13:19 | Outpatient (BNVA) | payer MEDICARE, MEDICAID, SELFPAY | PROVIDERS: PCP Internal Medicine; Visit Provider Internal Medicine ==

== ENCOUNTER → 2022-06-10 14:38 | Outpatient (BNVA) | payer MEDICARE, MEDICAID, SELFPAY | PROVIDERS: PCP Internal Medicine; Visit Provider Internal Medicine ==

== ENCOUNTER 2022-06-12 07:20 | Outpatient (REF) | payer MEDICARE, MEDICAID, SELFPAY ==
--- NOTE | ~2022-06-12 | CT_ITS ---
EXAMINATION: CT CHEST WITHOUT CONTRAST CLINICAL INFORMATION: Follow-up pulmonary nodule. History of rheumatoid disease. COMPARISON: Previous chest CT scans most recent April 2022, November 2021 and April 2017 TECHNIQUE: Multidetector volumetric CT imaging of the chest was done. Axial MIP volume rendering provided. Sagittal and coronal reformatted images were obtained. This CT examination was performed using dose optimization techniques as appropriate, variously including the following: *Automated exposure control *Adjustment of mA and/or kV according to patient size (this includes techniques or standardized protocols for targeted exams where dose is matched to indication/reason for exam; i.e. extremities or head) *Use of iterative reconstruction technique DLP: 316 mGy-cm FINDINGS: LUNGS: There is mild paraseptal emphysema. There is a 7 x 10 mm right upper lobe nodule. New when compared with old chest CT from 2018. This is gradually increasing from more recent exams, for example measuring 5 x 6 mm November 2021. This is not appreciably changed compared to most recent exam April 2022. Interval decrease in peripheral or subpleural nodule adjacent to the major fissure of the right lung base measuring 2 mm axial image 394 series 5. Other small pulmonary nodules are stable. There are increased peripheral reticular markings seen in the left lateral upper lobe and lower lobe adjacent to old rib x-rays. There may be mild traction bronchiolectasis in the left lower lobe. No endobronchial or endotracheal lesion. MEDIASTINUM: The mediastinum is normal. CORONARY ARTERY CALCIFICATION: Mild PLEURA: There is no pleural effusion. No pleural mass or thickening. AXILLA: No lymphadenopathy. UPPER ABDOMEN: Bilateral renal cysts similar to previous. There is also some herniation of the left hemidiaphragm splenic flexure into the widened left seventh and eighth rib interspace into the chest wall. OSSEOUS STRUCTURES: Multiple old left rib fractures. There is widening of the space between the left seventh and eighth ribs. There is some herniation of lung into the left lateral chest valdivia there are degenerative changes of the spine. CT/CT chest wo IV con IMPRESSION: 7 x 10 mm right upper lobe nodule. This is not appreciably changed from most recent exam April 2022 however is gradually increasing from November 2021 exam and new from April 2017 exam. Extensive posttraumatic changes to the left chest wall. Mild paraseptal emphysema. Fleischner guidelines were followed.
== END 2022-06-12 07:21 | disposition home or self-care (01) ==
LOC: HO.CT 07:20
PROVIDERS: Visit Provider Internal Medicine Pulmonary Disease
DX: R91.8 Other nonspecific abnormal finding of lung field (principal)
CPT/HCPCS: 71250

== ENCOUNTER → 2022-06-17 09:40 | Outpatient (BNVA) | payer MEDICARE, MEDICAID, SELFPAY | PROVIDERS: PCP Internal Medicine; Visit Provider Internal Medicine ==

== ENCOUNTER → 2022-06-18 09:56 | Outpatient (BNVA) | payer MEDICARE, MEDICAID, SELFPAY | PROVIDERS: PCP Internal Medicine; Visit Provider Internal Medicine Pulmonary Disease | DX: J44.9 Chronic obstructive pulmonary disease, unspecified (principal); R91.8 Other nonspecific abnormal finding of lung field; G47.33 Obstructive sleep apnea (adult) (pediatric); R60.0 Localized edema | CPT/HCPCS: 99212 ==

== ENCOUNTER → 2022-06-24 15:09 | Outpatient (BNVA) | payer MEDICARE, MEDICAID, SELFPAY | PROVIDERS: PCP Internal Medicine; Visit Provider Internal Medicine ==

== ENCOUNTER → 2022-06-30 11:55 | Day surgery (SDC) | payer MEDICARE, MEDICAID, SELFPAY ==
--- NOTE | ~2022-06-30 | XR_ITS ---
EXAMINATION: XR CHEST CLINICAL INFORMATION: Post right lung biopsy COMPARISON: Previous chest x-ray most recent January 2021 TECHNIQUE: Frontal view of the chest was obtained. FINDINGS: The cardiac and mediastinal contours are stable. There are coarse lung markings. Right upper lobe nodule not well seen by chest x-ray. Left pleural thickening and old trauma to the left chest wall unchanged. No pleural effusion or pneumothorax. Degenerative changes of the spine. XR/XR chest 1V IMPRESSION: No pneumothorax post right lung biopsy.
--- NOTE | ~2022-06-30 | CT_ITS ---
PROCEDURE: CT GUIDED BIOPSY, LUNG CLINICAL INFORMATION: Lung nodule. COMPARISON: Previous chest CT May 2022. TECHNIQUE: Procedure and risks and benefits including bleeding, infection and pneumothorax were discussed with the patient and informed consent was obtained. The patient was positioned in the right decubitus position. Limited axial images through the chest were performed. Right back was prepped and draped in the usual sterile fashion. The skin and soft tissues were anesthetized with 1% lidocaine plain. Using CT guidance and a coaxial system, access to the 8 mm right lower lobe nodule was obtained. Three 22-gauge FNA specimens were obtained. Initial pathology reading was blood and macrophages. Repeat imaging demonstrated hemorrhage surrounding the nodule target and additional samples were obtained. Patient received Versed 1.5 mg and fentanyl 75 mcg intravenously during. Total sedation time was 45 minutes. Conscious sedation was provided by a registered nurse under my direct supervision with continuous hemodynamic monitoring. Xmip-ia-teux contact time was [address] examination was performed using dose optimization techniques as appropriate, variously including the following: *Automated exposure control *Adjustment of mA and/or kV according to patient size (this includes techniques or standardized protocols for targeted exams where dose is matched to indication/reason for exam; i.e. extremities or head) *Use of iterative reconstruction technique DLP: 383 mGy-cm. FINDINGS: There is an 8 mm right upper lobe nodule that was targeted for fine-needle aspiration. Postprocedure imaging demonstrates some surrounding postprocedure hemorrhage. There is no pneumothorax. CT/CT biopsy lung RT IMPRESSION: CT-guided right upper lobe fine-needle aspiration.
[2022-06-30 12:02] VITALS: BMI 34.0
[2022-06-30 12:22] LABS: MANUAL DIFF FLAG NO
[2022-06-30 12:28] LABS: Basophils Percent Auto 0.2 % (0-2); Eosinophils Absolute Auto 0.1 X10*3/uL (0.0-0.4); Eosinophils Percent Auto 0.6 % (0-4); Hematocrit 39.8 % (42.0-52.0); Hemoglobin 13.3 g/dl (14.0-18.0); Imm Gran Abs Auto 0.05 X10*3/uL (0.00-0.03); Imm Gran Pct Auto 0.5 % (0.0-0.4); Lymphocytes Absolute Auto 1.6 X10*3/uL (1.2-4.9); Lymphocytes Percent Auto 15.8 % (20-40); Mean Corpuscular HGB Conc 33.4 g/dl (31.0-36.0); Mean Corpuscular Volume 98.8 fL (80.0-98.0); Mean Platelet Volume 9.1 fL (9.4-12.4); Monocytes Absolute Auto 0.6 X10*3/uL (0.1-1.2); Monocytes Percent Auto 6.5 % (2-11); Neutrophils Absolute Auto 7.5 x10*3/uL (2.0-8.3); Neutrophils Percent Auto 76.4 % (45-73); Platelet Count 223 X10*3/uL (160-400); Red Blood Count 4.03 X10*6/uL (4.60-5.80); Red Cell Distribution Width 15.2 % (11.0-16.0); White Blood Count 9.8 X10*3/uL (4.8-10.8)
[2022-06-30 12:32] LABS: INTERNATIONAL NORM RATIO 1.1 (0.9-1.1); Prothrombin Time 12.3 SEC (10.0-13.1)
[2022-06-30 12:38] LABS: Anion Gap 14 (12-20); Carbon Dioxide 27 mmol/L (22-29); Chloride 105 mmol/L (96-108); Potassium 3.4 mmol/L (3.3-5.1); Sodium 143 mmol/L (135-145)
[2022-06-30 15:15] VITALS: BP 115/58; PULSE 59; RESP 20; TEMP 36.6; O2SAT 97
[2022-06-30 15:30] VITALS: BP 92/56; PULSE 56; RESP 20; TEMP 36.6; O2SAT 95
[2022-06-30 15:45] VITALS: BP 131/47; PULSE 52; RESP 20; O2SAT 95
[2022-06-30 16:00] VITALS: BP 103/49; PULSE 53; RESP 20; O2SAT 95
[2022-06-30 16:30] VITALS: BP 99/45; PULSE 58; RESP 20; O2SAT 95
[2022-06-30 17:00] VITALS: BP 104/48; PULSE 62; RESP 20; TEMP 37; O2SAT 95
== END | disposition home or self-care (01) ==
PROVIDERS: Radiology Diagnostic Radiology; PCP Internal Medicine; Visit Provider Internal Medicine Pulmonary Disease
DX: R91.8 Other nonspecific abnormal finding of lung field (principal); I48.19 Other persistent atrial fibrillation; I50.20 Unspecified systolic (congestive) heart failure; I11.0 Hypertensive heart disease with heart failure; I73.9 Peripheral vascular disease, unspecified; J44.9 Chronic obstructive pulmonary disease, unspecified; M06.00 Rheumatoid arthritis without rheumatoid factor, unspecified site; G47.33 Obstructive sleep apnea (adult) (pediatric); K21.9 Gastro-esophageal reflux disease without esophagitis; E78.00 Pure hypercholesterolemia, unspecified; R60.0 Localized edema; Z79.01 Long term (current) use of anticoagulants; R73.02 Impaired glucose tolerance (oral); Z79.51 Long term (current) use of inhaled steroids; Z79.899 Other long term (current) drug therapy; Z99.89 Dependence on other enabling machines and devices; Z88.0 Allergy status to penicillin; Z87.891 Personal history of nicotine dependence; Z86.16 Personal history of COVID-19
CPT/HCPCS: 32408; 36415; 71045; 80051; 85025; 85610; 85730; 88172; 88173; 88177; 88305; 99152; 99153; J2250; J3010

== ENCOUNTER → 2022-07-01 12:44 | Outpatient (BNVA) | payer MEDICARE, MEDICAID, SELFPAY | PROVIDERS: PCP Internal Medicine; Visit Provider Internal Medicine ==

== ENCOUNTER → 2022-07-08 14:52 | Outpatient (BNVA) | payer MEDICARE, MEDICAID, SELFPAY | PROVIDERS: PCP Internal Medicine; Visit Provider Internal Medicine ==

== ENCOUNTER 2022-07-13 12:04 | Outpatient (REF) | payer MEDICARE, MEDICAID, SELFPAY ==
--- NOTE | ~2022-07-13 | XR_ITS ---
EXAMINATION: XR KNEE, LEFT XR KNEE AP STANDING CLINICAL INFORMATION: Pain. COMPARISON: Radiographs dated 05/21/2022. TECHNIQUE: Four views of the left knee. AP bilateral standing view of the knees was obtained. FINDINGS: Bony mineralization is normal. There is moderate narrowing of the bilateral medial joint space compartments, with peripheral osteophyte formation. The bilateral lateral joint space compartments are well-maintained. There is mild narrowing of the left patellofemoral compartment, with peripheral osteophyte formation. No fracture, dislocation or significant joint effusion is seen bilaterally. There is a slight bilateral varus configuration. There are left femoral, popliteal and infrapopliteal atherosclerotic calcifications. XR/XR knee standing BI IMPRESSION: 1. There is moderate osteoarthritic change of the medial joint space compartment of the left knee, and mild osteoarthritic changes seen of the left patellofemoral compartment. 2. There is moderate osteoarthritic change of the medial joint space compartment of the right knee. 3. There is a slight bilateral varus configuration.
--- NOTE | ~2022-07-13 | XR_ITS ---
EXAMINATION: XR KNEE, LEFT XR KNEE AP STANDING CLINICAL INFORMATION: Pain. COMPARISON: Radiographs dated 05/21/2022. TECHNIQUE: Four views of the left knee. AP bilateral standing view of the knees was obtained. FINDINGS: Bony mineralization is normal. There is moderate narrowing of the bilateral medial joint space compartments, with peripheral osteophyte formation. The bilateral lateral joint space compartments are well-maintained. There is mild narrowing of the left patellofemoral compartment, with peripheral osteophyte formation. No fracture, dislocation or significant joint effusion is seen bilaterally. There is a slight bilateral varus configuration. There are left femoral, popliteal and infrapopliteal atherosclerotic calcifications. XR/XR knee LT 2V IMPRESSION: 1. There is moderate osteoarthritic change of the medial joint space compartment of the left knee, and mild osteoarthritic changes seen of the left patellofemoral compartment. 2. There is moderate osteoarthritic change of the medial joint space compartment of the right knee. 3. There is a slight bilateral varus configuration.
== END 2022-07-13 12:05 | disposition home or self-care (01) ==
LOC: HO.HOSX 12:04
PROVIDERS: Visit Provider Orthopaedic Surgery
DX: M17.0 Bilateral primary osteoarthritis of knee (principal)
CPT/HCPCS: 73560; 73565; 99212

== ENCOUNTER → 2022-07-15 09:14 | Outpatient (BNVA) | payer MEDICARE, MEDICAID, SELFPAY | PROVIDERS: PCP Internal Medicine; Visit Provider Internal Medicine ==

== ENCOUNTER 2022-07-17 12:34 | Outpatient (RCR) | payer MEDICARE, MEDICAID, SELFPAY | END 2022-10-28 16:26 | disposition home or self-care (01) | LOC: HO.WCC 12:34 | PROVIDERS: PCP Internal Medicine; Visit Provider Physician Assistant | DX: I87.311 Chronic venous hypertension (idiopathic) with ulcer of right lower extremity (principal); L97.512 Non-pressure chronic ulcer of other part of right foot with fat layer exposed; G90.09 Other idiopathic peripheral autonomic neuropathy; I73.9 Peripheral vascular disease, unspecified; Z86.718 Personal history of other venous thrombosis and embolism; Z87.891 Personal history of nicotine dependence | CPT/HCPCS: 11042; 11044; 99212 ==

== ENCOUNTER → 2022-07-22 11:58 | Outpatient (BNVA) | payer MEDICARE, MEDICAID, SELFPAY | PROVIDERS: PCP Internal Medicine; Visit Provider Internal Medicine ==

== ENCOUNTER → 2022-07-24 11:31 | Outpatient (BNVA) | payer MEDICARE, MEDICAID, SELFPAY | PROVIDERS: PCP Internal Medicine; Visit Provider Internal Medicine ==

== ENCOUNTER → 2022-07-28 09:51 | Outpatient (BNVA) | payer MEDICARE, MEDICAID, SELFPAY | PROVIDERS: PCP Internal Medicine; Visit Provider Internal Medicine Pulmonary Disease | DX: J44.9 Chronic obstructive pulmonary disease, unspecified (principal); I27.81 Cor pulmonale (chronic); R91.1 Solitary pulmonary nodule; Z79.899 Other long term (current) drug therapy | CPT/HCPCS: 99212 ==

== ENCOUNTER → 2022-07-29 08:25 | Outpatient (BNVA) | payer MEDICARE, MEDICAID, SELFPAY | PROVIDERS: PCP Internal Medicine; Visit Provider Nurse Practitioner Family | DX: M06.00 Rheumatoid arthritis without rheumatoid factor, unspecified site (principal) | CPT/HCPCS: 99212 ==

== ENCOUNTER → 2022-07-31 09:31 | Outpatient (BNVA) | payer MEDICARE, MEDICAID, SELFPAY | PROVIDERS: PCP Internal Medicine; Visit Provider Internal Medicine ==

== ENCOUNTER → 2022-08-05 11:03 | Outpatient (BNVA) | payer MEDICARE, MEDICAID, SELFPAY | PROVIDERS: PCP Internal Medicine; Visit Provider Internal Medicine ==

== ENCOUNTER 2022-08-07 09:16 | Outpatient (REF) | payer MEDICARE, MEDICAID, SELFPAY ==
--- NOTE | ~2022-08-07 | US_ITS ---
EXAMINATION: US VENOUS ULTRASOUND WITH DOPPLER LOWER EXTREMITY, RIGHT CLINICAL INFORMATION: Right lower extremity pain and swelling. History of benign right groin lymph node fine-needle aspiration on 03/24/2022. COMPARISON: 02/11/2022, 12/30/2017 CT TECHNIQUE: Ultrasound of the deep veins is performed from the hip to the calf with compression sonography and color and pulse Doppler assessment. Spectral analysis with color-flow imaging is performed. FINDINGS: There is normal venous compression and respiratory variation and augmented flow. The visualized common femoral vein, superficial femoral vein, profunda femoral vein, popliteal vein, and the trifurcation region shows no evidence of deep venous thrombosis. Peroneal vein was not identified. There is no significant popliteal fossa cyst. There is enlarged, lobulated abnormal appearing right groin lymph node measuring 6.4 cm, previously 4.1 cm on 02/11/2022. Bilateral groin lymphadenopathy identified dating back to 12/30/2017 CT. Right calf edema present. If the patient's symptoms persist, followup ultrasound in 5 days 7 days might be of value to exclude proximal propagation from a non-visualized calf vein. US/US venous duplex LE RT IMPRESSION: No DVT demonstrated in the right lower extremity. Continued enlargement abnormal appearing 6.4 cm right groin lymph node. At the time of 03/24/2022 fine-needle aspiration, sampled lymph node measured 2.5 cm maximally. Consider repeat biopsy. The Right calf edema.
== END 2022-08-07 09:17 | disposition home or self-care (01) ==
LOC: HO.US 09:16
PROVIDERS: PCP Internal Medicine; Visit Provider Physician Assistant
DX: M79.661 Pain in right lower leg (principal)
CPT/HCPCS: 93971

== ENCOUNTER → 2022-08-12 11:11 | Outpatient (BNVA) | payer MEDICARE, MEDICAID, SELFPAY | PROVIDERS: PCP Internal Medicine; Visit Provider Internal Medicine ==

== ENCOUNTER → 2022-08-19 11:30 | Outpatient (BNVA) | payer MEDICARE, MEDICAID, SELFPAY | PROVIDERS: PCP Internal Medicine; Visit Provider Internal Medicine ==

== ENCOUNTER 2022-08-21 09:34 | Outpatient (REF) | payer MEDICARE, MEDICAID, SELFPAY ==
[2022-08-21 09:55] LABS: MANUAL DIFF FLAG NO
[2022-08-21 10:46] LABS: Basophils Percent Auto 0.5 % (0-2); Eosinophils Absolute Auto 0.2 X10*3/uL (0.0-0.4); Eosinophils Percent Auto 2.3 % (0-4); Hematocrit 40.7 % (42.0-52.0); Hemoglobin 13.1 g/dl (14.0-18.0); Imm Gran Abs Auto 0.03 X10*3/uL (0.00-0.03); Imm Gran Pct Auto 0.4 % (0.0-0.4); Immature Retic Fraction 19.3 % (2.3-13.4); Mean Corpuscular HGB Conc 32.2 g/dl (31.0-36.0); Mean Corpuscular Hemoglobin 32.8 pg (27.0-33.0); Mean Corpuscular Volume 101.8 fL (80.0-98.0); Mean Platelet Volume 9.2 fL (9.4-12.4); Monocytes Absolute Auto 0.6 X10*3/uL (0.1-1.2); Monocytes Percent Auto 8.1 % (2-11); Neutrophils Absolute Auto 4.6 x10*3/uL (2.0-8.3); Neutrophils Percent Auto 61.7 % (45-73); Platelet Count 257 X10*3/uL (160-400); Red Cell Distribution Width 15.9 % (11.0-16.0); Retic HGB Equivalent 37.2 pg (30.0-35.0); Reticulocyte Percent 2.9 % (0.5-1.8); Reticulocytes Absolute 0.116 X10*6/uL (0.026-0.095); White Blood Count 7.4 X10*3/uL (4.8-10.8)
[2022-08-21 10:54] LABS: Estimated Average Glucose 114 mg/dL; Hemoglobin A1c % 5.6 %
[2022-08-21 11:27] LABS: Erythrocyte Sedimentation Rate 36 MM/HR (0-15)
[2022-08-21 12:29] LABS: Alanine Aminotransferase 18 U/L (0-40); Albumin Level 4.3 g/dL (3.5-5.0); Alkaline Phosphatase 51 U/L (39-117); Anion Gap 14 (12-20); Aspartate Amino Transferase 20 U/L (5-37); Bilirubin Total 0.6 mg/dL (0.0-1.0); Blood Urea Nitrogen 14 mg/dL (9-16); C Reactive Protein 1.19 mg/dL (< or = 0.50); Calcium 8.9 mg/dL (8.4-10.2); Carbon Dioxide 29 mmol/L (22-29); Chloride 103 mmol/L (96-108); Cholesterol 173 mg/dL; Estimated Glomerular Filt Rate > 60; Glucose Random 106 mg/dL (60-115); HDL Cholesterol 35 mg/dL; Iron 58 mcg/dL (45-160); LDL Cholesterol Calculated 117 mg/dl; Percent Iron Saturation 22 % (15-50); Potassium 4.1 mmol/L (3.3-5.1); Sodium 142 mmol/L (135-145); Total Iron Binding Capacity 267 mcg/dL (228-428); Total Protein 7.9 g/dL (6.5-8.0); Triglycerides 107 mg/dL; Unsaturated Iron Binding 209 ug/dL
[2022-08-21 12:35] LABS: Blood Urea Nitrogen 13 mg/dL (9-16)
[2022-08-21 13:08] LABS: Ferritin 291 ng/mL (20-250); Folate > 20.0 ng/mL (> or = 4.0); Free T4 (Free Thyroxine) 1.03 ng/dL (0.71-1.85); Prostate Specific Antigen Scr 0.65 ng/mL (<0.05-4.0); Thyroid Stimulating Hormone 1.21 uIU/mL (0.32-4.0); Vitamin B12 688 pg/mL (200-900)
== END 2022-08-21 09:35 | disposition home or self-care (01) ==
LOC: HO.LAB 09:34
PROVIDERS: Absent Provider Internal Medicine; PCP Internal Medicine; Visit Provider Nurse Practitioner Family
DX: M06.00 Rheumatoid arthritis without rheumatoid factor, unspecified site (principal); E78.00 Pure hypercholesterolemia, unspecified; Z12.5 Encounter for screening for malignant neoplasm of prostate; R73.02 Impaired glucose tolerance (oral); D64.9 Anemia, unspecified
CPT/HCPCS: 36415; 80053; 80061; 82607; 82728; 82746; 83036; 83540; 84153; 84439; 84443; 84520; 85025; 85045; 85652; 86140

== ENCOUNTER → 2022-08-26 14:28 | Outpatient (BNVA) | payer MEDICARE, MEDICAID, SELFPAY | PROVIDERS: PCP Internal Medicine; Visit Provider Internal Medicine ==

== ENCOUNTER → 2022-09-09 10:53 | Outpatient (BNVA) | payer MEDICARE, MEDICAID, SELFPAY | PROVIDERS: PCP Internal Medicine; Visit Provider Internal Medicine ==

== ENCOUNTER → 2022-09-23 10:59 | Outpatient (BNVA) | payer MEDICARE, MEDICAID, SELFPAY | PROVIDERS: PCP Internal Medicine; Visit Provider Internal Medicine ==

== ENCOUNTER → 2022-09-30 10:55 | Outpatient (BNVA) | payer MEDICARE, MEDICAID, SELFPAY | PROVIDERS: PCP Internal Medicine; Visit Provider Internal Medicine ==

== ENCOUNTER → 2022-10-05 10:34 | Outpatient (BNVA) | payer MEDICARE, MEDICAID, SELFPAY | PROVIDERS: PCP Internal Medicine; Visit Provider Internal Medicine ==

== ENCOUNTER 2022-10-08 08:41 | Outpatient (AMB) | payer MEDICARE, MEDICAID, SELFPAY ==
[2022-10-08 08:56] LABS: Prothrombin Time Whole Bld POC 26.9 sec (11.1-13.5); ~PT, ~INR - Anti Coag Clinic 2.2 (0.9-1.1)
--- NOTE | 2022-10-08 08:56 | MHC.OFFVISCO ---
Intake Intake Visit Reasons: Anticoagulation Allergies Penicillins [PCN] Allergy (Unknown, Verified 10/08/22 08:43) UNKNOWN- RXN CHILD/? HIVES Medication List - Last Reconciled 10/08/22 by Flori Gamboa RN albuterol sulfate 90 mcg/actuation 2 puffs inhalation Q4-6H PRN 3 months ascorbic acid (vitamin C) 1,000 mg PO DAILY bumetanide 2 mg PO BID cholecalciferol (vitamin D3) 25 mcg PO DAILY [CPAP As directed] diltiazem HCl 180 mg PO DAILY doxycycline hyclate 100 mg PO BID folic acid 1 mg PO DAILY 90 days ipratropium-albuterol 0.5 mg-3 mg(2.5 mg base)/3 mL 3 mL inhalation Q4-6H PRN 30 days lisinopril 5 mg PO DAILY omeprazole 20 mg PO DAILY pravastatin 20 mg PO DAILY Trelegy Ellipta 200-62.5-25 mcg (ddwzbstftkh-dylszugpa-zntwdftm) 1 inh inhalation DAILY 90 days NS warfarin 5 mg See Protocol PO DAILY Nursing Note INR: 2.2- in therapeutic range Medications and supplements reviewed- med list reviewed with pt pt cont on doxcycyline for today and tomm- has been eating greens No changes in health, diet, medications, or supplements, Denies any signs and symptoms of bleeding or bruising or clotting. Bleeding, bruising, clotting discussed Nutritional guidance given - cont greens while on antibiotics Dose: 5mg x 7 F/U INR: 1 week Patient verbalizes understanding of instructions given meter to meter correlation done with pt, pt demonstrated good tech- used one strip, pt meter 2.3, acs meter 2.2 risk scores entered Anti-Coag Initial Assessment Social Hx Patient Tobacco Use Status: Former Tobacco user Quit Date: 2015 Tobacco use type: Cigarette alcohol intake: former Alcohol intake frequency: does not drink Questionnaires HAS-BLED Does the patient had uncontrolled Hypertension?: No Does the patient have renal disease?: No Does the patient have liver disease?: No Does the patient have a history of stroke?: No Has the patient had major bleeding or predisposition to bleeding?: Yes Does the patient have labile INRs?: No Is the patient over 65 years of age?: Yes Is the patient on medications that gives them a predisposition to bleeding?: Yes Does the patient use alcohol?: Yes HAS-BLED Score: 4 CHADSVASC Age: 66-74 Gender: Male Does the patient have a history of CHF?: No Does the patient have a history of Hypertension?: Yes Does the patient have a history of Stroke/TIA/Thromboembolism?: No Does the patient have a history of Vascular Disease (prior NV, PAD or aortic plaque)?: Yes Does the patient have a history of Diabetes?: No CHADS VACS Score: 3 Jaci Prediction Score Rsk VTE Active Cancer: No Previous VTE, excluding superficial vein thrombosis: Yes Reduced mobility: Yes Already known Thrombophilic Condition: No With-in last month Trauma and/or Surgery: No Elderly 70 year or older: No Heart and/or Respiratory Failure: No Acute Myocardial infarction and/or Ischemic Stroke: No Acute Infection and/or Rheumatologic Disorder: Yes Obesity (BMI 30 or greater): Yes Ongoing Hormonal Treatment: No Score: 8 Jaci Score less than 4; Low Risk of VTE Jaci Score 4 or greater; High Risk of VTE Coding Level of Care Code Est Patient Level 2 Diagnoses Current use of anticoagulant therapy Z79.01 Assessment & Plan Assessment & Plan (1) Current use of anticoagulant therapy: Code(s): Z79.01 - intermediate (current) use of anticoagulants
== END 2022-10-08 09:16 | disposition home or self-care (01) ==
LOC: HO.ACS 08:41
PROVIDERS: PCP Internal Medicine; Visit Provider Internal Medicine
DX: Z79.01 Long term (current) use of anticoagulants (principal)

== ENCOUNTER → 2022-10-08 08:41 | Outpatient (BNVA) | payer MEDICARE, MEDICAID, SELFPAY | PROVIDERS: PCP Internal Medicine; Visit Provider Internal Medicine | DX: I48.19 Other persistent atrial fibrillation (principal); Z79.01 Long term (current) use of anticoagulants; Z51.81 Encounter for therapeutic drug level monitoring | CPT/HCPCS: 85610; 99212 ==

== ENCOUNTER → 2022-10-14 08:48 | Outpatient (BNVA) | payer MEDICARE, MEDICAID, SELFPAY | PROVIDERS: PCP Internal Medicine; Visit Provider Internal Medicine | DX: I48.19 Other persistent atrial fibrillation (principal); Z79.01 Long term (current) use of anticoagulants; Z51.81 Encounter for therapeutic drug level monitoring | CPT/HCPCS: 99212 ==

== ENCOUNTER 2022-10-14 08:55 | Outpatient (AMB) | payer MEDICARE, MEDICAID, SELFPAY ==
--- NOTE | 2022-10-14 09:00 | A.OFFVIS_ITS ---
Intake Vital Signs 10/14/22 09:01 Height 6 ft 3 in Weight 272 lb 4.334 oz BMI 34.0 BP 126/70 Blood Pressure Location Rt brachial Position Sitting Pulse 64 Pulse Source Pulse Oximeter Temp 97.2 F Temp Source Skin Pulse Oximetry (%) 94 Intake Visit Reasons: Rheumatoid arthritis Intake Note: * Pt seen today for RA follow up. Previously seen by Cee * States he has been off the MTX and notices bl hand stiffness/achiness. 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 HIVES Medication List - Last Reconciled 10/14/22 by Brea Mitchell MD albuterol sulfate 90 mcg/actuation 2 puffs inhalation Q4-6H PRN 3 months ascorbic acid (vitamin C) 1,000 mg PO DAILY bumetanide 2 mg PO BID cholecalciferol (vitamin D3) 25 mcg PO DAILY [CPAP As directed] diltiazem HCl 180 mg PO DAILY folic acid 1 mg PO DAILY 90 days ipratropium-albuterol 0.5 mg-3 mg(2.5 mg base)/3 mL 3 mL inhalation Q4-6H PRN 30 days lisinopril 5 mg PO DAILY omeprazole 20 mg PO DAILY pravastatin 20 mg PO DAILY Trelegy Ellipta 200-62.5-25 mcg (xbkirqvegff-rcmrbppyt-rqbbssqo) 1 inh inhalation DAILY 90 days NS warfarin 5 mg See Protocol PO DAILY HPI HPI Comments History of Present Illness Details 67yoM presents for follow-up of seronegative RA. Last seen by Debbie Jordan 07/21 Patient states that he is having a wound in the sole of his right foot. Mentions that he was recently evaluated by Podiatry Dr. Gallagher and he is scheduled for surgical intervention towards the end of this month. He also just completed a doxycycline course for right lower extremity cellulitis. Patient has been off his methotrexate and Humira for about 8 months now. States that the pain swelling and stiffness of his wrists is coming back. Morning stiffness lasts 3- 4 hours. 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 Mother Rheumatoid arteritis Sister Breast cancer Other Mental health disorder Substance use disorder Social History Household Members: Significant Other Housing: Apartment Do you presently have visiting nurse or other home services: No Alcohol intake: former Patient Tobacco Use Status: Former Tobacco user Quit Date: 2015 Tobacco use type: Cigarette Years Smoked: 49 e-Cigarette/Vaping Use: Never Used Second Hand Smoke Exposure: No Substance Use Type: Marijuana service: No Current occupational status: retired Cognitive needs: No Hearing needs: No Vision needs: Yes Review of Systems Musc Reports arthralgias, Reports joint swelling and Reports stiffness Physical Exam Vital Signs: Last Vital Signs Temp 97.2 F 10/14/22 09:01 Pulse 64 10/14/22 09:01 BP 126/70 10/14/22 09:01 Pulse Ox 94 10/14/22 09:01 BMI result Body Mass Index 34.0 Const General: cooperative, healthy appearing and comfortable Nutritional Appearance: obese Orientation/consciousness: patient oriented x3 Limitations: no limitations HEENT Head: Yes normocephalic and Yes atraumatic Mouth: moist mucous membranes Resp Effort & Inspection: normal respiratory effort and able to speak in complete sentences Neuro General: patient oriented x3 Extrem Other: Puffiness of MCPs bilaterally. Few tender PIP is bilaterally Normal range of motion of both wrists, elbows and shoulders with without pain Left ankle tenderness Assessment & Plan Assessment & Plan (1) Seronegative rheumatoid arthritis: Comment: Methotrexate- 2017- January 2022, discontinued due to right lower extremity cellulitis Humira 2019-January 2022, discontinued due to right lower extremity cellulitis Prednisone- off since October 2019 HCQ 10/21 Code(s): M06.00 - Rheumatoid arthritis without rheumatoid factor, unspecified site Plan: This is a 67-year-old male with seronegative RA or presents for follow-up. Patient was doing fairly well on methotrexate and Humira however does were discontinued January of 2022 due to recurrent right foot wounds and right lower extremity cellulitis. Patient is currently of DMARDs and is having recurrent joint pain, swelling and stiffness. Will need to restart DMARDs. Need to start DMARDs with lower risk of immune suppression. Discussed risks and benefits of hydroxychloroquine. Start hydroxychloroquine 200 mg Twice daily Labs before next visit in 3 months (2) Long-term use of hydroxychloroquine: Code(s): Z79.899 - Other joint terminal attack controller (current) drug therapy Plan: Discussed risk of retinopathy associated with hydroxychloroquine. Referred patient to Ophthalmology. Plan I spent 27 minutes reviewing patient's chart, evaluating patient, ordering diagnostic workup, counseling patient and documenting in the chart Orders: Orders Complete Blood Count Auto Diff 3 Months M06.00 - Rheumatoid arthritis without rheumatoid factor, unspecified site Comprehensive Met. Panel 3 Months M06.00 - Rheumatoid arthritis without rheumatoid factor, unspecified site C Reactive Protein 3 Months M06.00 - Rheumatoid arthritis without rheumatoid factor, unspecified site Erythrocyte Sedimentation Rate 3 Months M06.00 - Rheumatoid arthritis without rheumatoid factor, unspecified site Referrals Ophthalmology Referral Z79.899 - Other joint terminal attack controller (current) drug therapy Medications: New hydroxychloroquine 200 mg PO BID 60 tabs 2RF Coding Level of Care Code Est Pt Level 4 (57921) Diagnoses Seronegative rheumatoid arthritis M06.00 Long-term use of hydroxychloroquine Z79.899
[2022-10-14 09:01] VITALS: BP 126/70; PULSE 64; TEMP 36.2; O2SAT 94; BMI 34.0
== END 2022-10-14 09:42 | disposition home or self-care (01) ==
PROVIDERS: PCP Internal Medicine; Visit Provider Student in an Organized Health Care Education/Training Program
DX: M06.00 Rheumatoid arthritis without rheumatoid factor, unspecified site (principal); Z79.899 Other long term (current) drug therapy
CPT/HCPCS: 99214

== ENCOUNTER → 2022-10-21 09:56 | Outpatient (BNVA) | payer MEDICARE, MEDICAID, SELFPAY | PROVIDERS: PCP Internal Medicine; Visit Provider Internal Medicine ==

== ENCOUNTER 2022-10-23 09:00 | Outpatient (RCR) | payer MEDICARE, MEDICAID, SELFPAY ==
[2022-09-16 09:03] VITALS: BP 134/73; PULSE 78
--- NOTE | 2022-09-16 10:54 | MHC.PT.EP ---
[facility] [place] Office [place] Office [place] Office [address] [phone] F: [phone] F: [phone] F: [phone] F: [phone] Physical Therapy Plan of Care Date of Evaluation: Date of Surgery: NA Diagnosis: Bilateral Hip Pain Assessment: Konrad is a 67 yo male referred to PT for B hip pain . Pt reports that he has pain mostly in his L knee. Signs and symptoms suggestive of L lateral knee joint pain and tight L ITB. Impairments include decreased B hip ROM, L lateral knee pain with MMT, tight B HS, R ASIS higher than L and leg length discrepancy (R > L), impaired gait, TTP/pain at lateral L joint line, L PSIS/L5 and fibular head, constant L lateral knee pain, tight L ITB, and decreased hip extension strength. Functional limitations include inability to stand from the ground I, inability to stand/ambulate for prolonged periods of time, and inability to cross L leg over R knee. PT needed to address aforementioned impairments and functional limitations. PT to include STM, B LE strengthening, L LE stretching, gait training, hot/cold pack, STM, pt education, and HEP. Frequency and Duration: The patient will be seen 2x a week for 5 weeks Short Term Goals: In 3 weeks... 1. Pt will be I with HEP 2. Pt will be have all hip ROM WFL which will enable him to cross is leg to wear socks. 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 1. Pt will increase B hip strength by 1 MMT in order to get up from the ground safely 2. Pt will have no more than 3/10 pain in L lateral knee in order to lift objects from ground. Treatment Plan: Modalities to reduce pain, spasms and effusion. Manual therapy to restore motion and function. Therapeutic exercise to improve strength and flexibility. Neuromuscular re-education for posture and balance. Therapeutic activities to return to functional activities of daily living. Electronically signed by: Anna Traylor PT DPT Please sign and return to therapist. Thank you for your referral.
--- NOTE | 2022-10-23 09:57 | MHC.PT.DC ---
[facility] [place] Office [place] Office [place] Office [address] Mitesh [address] [phone] F: [phone] F: [phone] F: [phone] F: [phone] Physical Therapy Discharge Report Diagnosis: Bilateral Hip Pain Date of Surgery: NA Date of Evaluation: 09/16/22 Date of Discharge: 10/23/22 Treatments to Date: 10 Cancellations to Date: No Shows to Date: Discharge Status: Achieved Goals Improved Function Independent with HEP Discharge Summary: Konrad arrived feeling good. He has no pain today. He has completed 10 PT visits and has achieved all goals set for him. He is independent with all his HEPs. He is therefore being d/c from PT today. He was in agreement with the plan. I reviewed all exercises with him and encouraged him to focus on knee strengthening. Konrad is being d/c from PT today. Electronically signed by: Anna Traylor PT DPT Please sign and return to therapist. Thank you for your referral.
== END 2022-10-23 09:57 | disposition home or self-care (01) ==
LOC: HO.PT 09:00
PROVIDERS: PCP Internal Medicine; Visit Provider Internal Medicine
DX: M25.551 Pain in right hip (principal); M25.552 Pain in left hip
CPT/HCPCS: 97110; 97140; 97162

== ENCOUNTER 2022-10-27 08:07 | Outpatient (AMB) | payer MEDICARE, MEDICAID, SELFPAY ==
--- NOTE | 2022-10-27 08:26 | MHC.OFFVIS ---
Intake Vital Signs 10/27/22 08:27 Height 6 ft 3 in Weight 270 lb 11.642 oz BMI 33.8 BP 120/68 Blood Pressure Location Lt brachial Position Sitting Pulse 57 Intake Visit Reasons: 1 yr f/up Intake Note: 1 year followup w/ EKG Corrections Sergeant Required: No Accompanied by: Self / Same As Patient Allergies Penicillins [PCN] Allergy (Unknown, Verified 10/27/22 08:28) UNKNOWN- RXN CHILD/? HIVES Medication List - Last Reconciled 10/27/22 by Perez Navas MD albuterol sulfate 90 mcg/actuation 2 puffs inhalation Q4-6H PRN 3 months ascorbic acid (vitamin C) 1,000 mg PO DAILY bumetanide 2 mg PO BID cholecalciferol (vitamin D3) 25 mcg PO DAILY [CPAP As directed] diltiazem HCl 180 mg PO DAILY folic acid 1 mg PO DAILY 90 days hydroxychloroquine 200 mg PO BID ipratropium-albuterol 0.5 mg-3 mg(2.5 mg base)/3 mL 3 mL inhalation Q4-6H PRN 30 days lisinopril 5 mg PO DAILY omeprazole 20 mg PO DAILY pravastatin 20 mg PO DAILY Trelegy Ellipta 200-62.5-25 mcg (pslieqhhbdc-ptarnmagb-jhzjyflh) 1 inh inhalation DAILY 90 days NS warfarin 5 mg See Protocol PO DAILY HPI HPI Comments History of Present Illness Details Konrad returns for follow-up regarding atrial fibrillation. To recall, he underwent cardioversion in 2015. Was initially amiodarone which was later stopped. Then he reverted to atrial fibrillation at some point and has been maintained on rate control only. Overall, he states he feels fine. No specific cardiac concerns. Shortness of breath is also at baseline. His legs bother him more than anything else. In spite of this, he states he can still walk around 2 miles or so. He also states he may need surgery on his foot. 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 Mother Rheumatoid arteritis Sister Breast cancer Other Mental health disorder Substance use disorder Social History Household Members: Significant Other Housing: Apartment Do you presently have visiting nurse or other home services: No Alcohol intake: former Patient Tobacco Use Status: Former Tobacco user Quit Date: 2015 Tobacco use type: Cigarette Years Smoked: 49 e-Cigarette/Vaping Use: Never Used Second Hand Smoke Exposure: No Substance Use Type: Marijuana service: No Current occupational status: retired Cognitive needs: No Hearing needs: No Vision needs: Yes Review of Systems Const Denies weakness ENT Denies dizziness Card Denies chest pain, Denies chest pain with activity, Denies syncope, Denies rapid heart rate, Denies pedal edema, Denies edema, Denies leg edema, Denies lightheadedness, Denies palpitations, Denies dyspnea, Denies dyspnea on exertion and Denies orthopnea Resp Denies cough, Denies dyspnea and Denies dyspnea on exertion GI Denies hematochezia and Denies change in stool character Musc Denies abnormal gait, Denies muscle cramps, Denies muscle weakness, Denies numbness, Denies radiating pain into limb and Denies tingling Neuro Denies abnormal gait, Denies dizziness, Denies syncope, Denies numbness, Denies tingling and Denies weakness Endo Denies palpitations Physical Exam Vital Signs: Last Vital Signs Pulse 57 10/27/22 08:27 BP 120/68 10/27/22 08:27 BMI result Body Mass Index 33.8 Const General: cooperative and no acute distress HEENT Other: Unremarkable Neck Neck: Yes normal visual inspection Chest Chest palpation & inspection: normal inspection of the chest Resp Auscultation: wheezes Cardio Jugular venous distension: no JVD Palpation: normal PMI Heart sounds: S1 normal heart sound present, S2 normal heart sound present, no gallops, no murmurs and no rubs GI Palpation (GI): Soft to palpation Back/Spine/Pelvis Other: unremarkable Skin General skin exam: no rashes or lesions noted Neuro Cranial nerves: Yes Other cranial nerve findings present Extrem General: Yes pedal edema (trace edema) Psych Mental Status: other Office Procedures EKG Details: EKG with underlying atrial fibrillation; leftward axis; right bundle-branch block pattern. [id number], Complete Assessment & Plan Assessment & Plan (1) Persistent atrial fibrillation: Code(s): I48.19 - Other persistent atrial fibrillation Plan: Remains on diltiazem and warfarin. No changes. Could not afford DOACs. (2) Severe obstructive sleep apnea: Comment: CPAP use Code(s): G47.33 - Obstructive sleep apnea (adult) (pediatric) Plan: Sleep study from 2019 reported as very severe obstructive sleep apnea. Continue CPAP. (3) Cor pulmonale (chronic): Code(s): I27.81 - Cor pulmonale (chronic) Plan: Stable BP continue Bumex. (4) Hypertension: Code(s): I10 - Essential (primary) hypertension Qualifiers: Hypertension type: essential hypertension Qualified Code(s): I10 - Essential (primary) hypertension Plan: Stable. Continue lisinopril. (5) Preoperative cardiovascular examination: Code(s): Z01.810 - Encounter for preprocedural cardiovascular examination Plan: He thinks he may need some foot surgery but details are not entirely clear. 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 If it is just local anesthesia, then probably not much required but if it is under general anesthesia, may need workup including echocardiogram and stress test. To be decided. Coding Level of Care Code Est Pt Level 4 (69757) Diagnoses Persistent atrial fibrillation I48.19 Severe obstructive sleep apnea G47.33 Cor pulmonale (chronic) I27.81 Hypertension I10 Hypertension type: essential hypertension Preoperative cardiovascular examination Z01.810 CPT Codes EKG - CPT: 45001-[id number], Complete ([id number])
[2022-10-27 08:27] VITALS: BP 120/68; PULSE 57; BMI 33.8
== END 2022-10-27 08:47 | disposition home or self-care (01) ==
PROVIDERS: PCP Internal Medicine; Referring Provider Internal Medicine; Visit Provider Internal Medicine
DX: I48.19 Other persistent atrial fibrillation (principal); G47.33 Obstructive sleep apnea (adult) (pediatric); I27.81 Cor pulmonale (chronic); I10 Essential (primary) hypertension; Z01.810 Encounter for preprocedural cardiovascular examination
CPT/HCPCS: 93010; 99214

== ENCOUNTER → 2022-10-27 08:07 | Outpatient (BNVA) | payer MEDICARE, MEDICAID, SELFPAY | PROVIDERS: PCP Internal Medicine; Referring Provider Internal Medicine; Visit Provider Internal Medicine | DX: Z01.810 Encounter for preprocedural cardiovascular examination (principal); I48.19 Other persistent atrial fibrillation; G47.33 Obstructive sleep apnea (adult) (pediatric); I27.81 Cor pulmonale (chronic); I10 Essential (primary) hypertension; Z79.01 Long term (current) use of anticoagulants; Z79.899 Other long term (current) drug therapy | CPT/HCPCS: 93005; 99212 ==

== ENCOUNTER → 2022-11-04 08:58 | Outpatient (BNVA) | payer MEDICARE, MEDICAID, SELFPAY | PROVIDERS: PCP Internal Medicine; Visit Provider Internal Medicine ==

== ENCOUNTER → 2022-11-18 11:04 | Outpatient (BNVA) | payer MEDICARE, MEDICAID, SELFPAY | PROVIDERS: PCP Internal Medicine; Visit Provider Internal Medicine ==

== ENCOUNTER → 2022-12-02 10:20 | Outpatient (BNVA) | payer MEDICARE, MEDICAID, SELFPAY | PROVIDERS: PCP Internal Medicine; Visit Provider Internal Medicine ==

== ENCOUNTER 2022-12-11 09:37 | Outpatient (AMB) | payer MEDICARE, MEDICAID, SELFPAY ==
[2022-12-11 09:44] VITALS: BP 124/68; PULSE 67; O2SAT 96; BMI 33.4
--- NOTE | 2022-12-11 09:44 | A.OFFPC_ITS ---
Vital Signs 12/11/22 09:44 Height 6 ft 3 in Weight 267 lb BMI 33.4 BP 124/68 Blood Pressure Location Lt brachial Position Sitting Pulse 67 Pulse Source Pulse Oximeter Pulse Oximetry (%) 96 Oxygen Delivery Method Room Air Intake Visit Reasons: 3 month f/u Allergies Penicillins [PCN] Allergy (Unknown, Verified 12/11/22 09:44) UNKNOWN- RXN CHILD/? HIVES Medication List - Last Reconciled 12/11/22 by Los Jacques MD albuterol sulfate 90 mcg/actuation 2 puffs inhalation Q4-6H PRN 3 months ascorbic acid (vitamin C) 1,000 mg PO DAILY bumetanide 2 mg PO BID cholecalciferol (vitamin D3) 25 mcg PO DAILY [CPAP As directed] diltiazem HCl 180 mg PO DAILY folic acid 1 mg PO DAILY 90 days hydroxychloroquine 200 mg PO BID ipratropium-albuterol 0.5 mg-3 mg(2.5 mg base)/3 mL 3 mL inhalation Q4-6H PRN 30 days lisinopril 5 mg PO DAILY omeprazole 20 mg PO DAILY pravastatin 20 mg PO DAILY Trelegy Ellipta 200-62.5-25 mcg (vbbopusuaav-[id number]-ohlgviyo) 1 inh inhalation DAILY 90 days NS warfarin 5 mg See Protocol PO DAILY Tobacco use date assessed: 07/15/22 Fall risk assessment: No Falls in past year Last assessed Fall Risk: 12/11/22 Dental Screening Dental Screen Date: 12/11/22 Did you have a dental visit in the last 12 months?: No Did you have a dental problem in the last 6 months where you did not have access to dental care?: No Was dental information given to patient?: No HPI 3 month f/u HPI Details 67-year-old obese male with rheumatoid a rthritis impaired glucose tolerance COPD severe obstructive sleep apnea coming in for follow-up. Last seen in July 2022. Patient had a right foot ulcer being seen by the wound care. Colonoscopy last done in July 2016. Because of long-term medication Plaquenil patient is being followed up by the [facility]. Patient sees wound care right plantar foot ulcer 3rd metatarsal head. Meanwhile September 2022 follows up with Cardiology atrial fibrillation underwent cardioversion 2016 was on amiodarone rate control right now. As for rheumatology September 2022 restart DMARDs hydroxychloroquine 200 mg twice a day. seeing Podatry and surgery 01/2023. on plaquenil. still feels sore . COPD- had congestion 10 days before [facility] Medical History (Updated 12/11/22 @ 10:19 by Los Jacques MD) Persistent atrial fibrillation On methotrexate therapy Cor pulmonale (chronic) Peripheral neuropathy Current use of anticoagulant therapy Insomnia Hemothorax Vitamin D deficiency Right renal stone Peripheral vascular disease GERD (gastroesophageal reflux disease) Impaired glucose tolerance Hypercholesterolemia Hypertension Atrial fibrillation Severe obstructive sleep apnea Primary osteoarthritis of knees, bilateral intermediate frame tender methotrexate user Seronegative rheumatoid arthritis Current use of anticoagulant therapy Moderate COPD (chronic obstructive pulmonary disease) History of cardioversion Surgical History History of umbilical hernia repair Hx of tonsillectomy S/P emergency tracheotomy for assistance in breathing Family History Father No problems noted. Mother Rheumatoid arteritis Sister Breast cancer Other Mental health disorder Substance use disorder Social History Household Members: Significant Other Housing: Apartment Do you presently have visiting nurse or other home services: No Alcohol intake: former Patient Tobacco Use Status: Former Tobacco user Quit Date: 2015 Tobacco use type: Cigarette Years Smoked: 49 e-Cigarette/Vaping Use: Never Used Second Hand Smoke Exposure: No Substance Use Type: Marijuana service: No Current occupational status: retired Cognitive needs: No Hearing needs: No Vision needs: Yes Questionnaire PHQ-9 Over the last 2 weeks, how often have you been bothered by any of the following problems? 1. Little interest or pleasure in doing things: several days 2. Feeling down, depressed, or hopeless: several days 3. Trouble falling or staying asleep, or sleeping too much: not at all 4. Feeling tired or having little energy: not at all 5. Poor appetite or overeating: not at all 6. Feeling bad about yourself - or that you are a failure or have let yourself or your family down: not at all 7. Trouble concentrating on things, such as reading the newspaper or watching television: not at all 8. Moving or speaking so slowly that other people could have noticed. Or the opposite - being so fidgety or restless that you have been moving around a lot more than usual: not at all 9. Thoughts that you would be better off or of hurting yourself in some way: not at all Total score: 2 Depression Screening Interpretation: Positive Depression Screening Done: Yes Source: Developed by Drs. Zachary Epps, Aleta Stone, Chaparro Nation and colleagues, with an educational anastacio from [employer]. Thrive Questionnaire Date Thrive assessed: 04/27/22 AUDIT C Alcohol Use Questionnaire (AUDIT-C) 1. How often do you have a drink containing alcohol?: 2-3 times a week 2. How many drinks containing alcohol do you have on a typical day when you are drinking?: 3 or 4 3. How often do you have six or more drinks on one occasion?: Never Total Score: 4 MARELY-7 AMB Questionnaire MARELY-7 Date MARELY - 7 assessed: 04/27/22 Source: Developed by Drs. Zachary Epps, Aleta Stone, Chaparro Nation and colleagues, with an educational anastacio from [employer]. Physical exam (Primary Care) Vital Signs: Last Vital Signs Pulse 67 12/11/22 09:44 BP 124/68 12/11/22 09:44 Pulse Ox 96 12/11/22 09:44 Oxygen Delivery Method Room Air 12/11/22 09:44 BMI result Body Mass Index 33.4 Tobacco/Smoking Status: Tobacco use Status Tobacco use date assessed 07/15/22 12/11/22 09:45 Patient Tobacco Use Status Former Tobacco user 12/11/22 09:45 Tobacco use type Cigarette 12/11/22 09:45 e-Cigarette/Vaping Use Never Used 12/11/22 09:45 PHQ-9: PHQ-9 Score PHQ-9: Total score 2 12/11/22 09:45 Depression Screening Interpretation: Positive Thrive Assessment: Date of Thrive Assessment Date Thrive assessed 04/27/22 12/11/22 09:45 Const General: alert; No acute distress Eyes Conjunctivae: conjunctivae normal Resp Auscultation: clear to auscultation bilaterally Cardio Rate: regular rate Rhythm: regular rhythm GI Inspection: Yes normal to inspection Extrem Other: By a bilateral lower extremity right foot 3rd metatarsal plantar ulcer 1 cm deep 1 cm wide with callus around it 1 cm around General: Yes edema Assessment and Plan Assessment & Plan (1) Plantar ulcer of right foot: Code(s): L97.519 - Non-pressure chronic ulcer of other part of right foot with unspecified severity Plan: Patient follows up with wound care. January 2023 surgery (2) Seronegative rheumatoid arthritis: Comment: Methotrexate- 2017- January 2022, discontinued due to right lower extremity cellulitis Humira 2019-January 2022, discontinued due to right lower extremity cellulitis Prednisone- off since October 2019 HCQ 10/21 Code(s): M06.00 - Rheumatoid arthritis without rheumatoid factor, unspecified site Plan: Patient follows up with Rheumatology and has been started on Plaquenil. Patient did see ophthalmology also for monitoring (3) Moderate COPD (chronic obstructive pulmonary disease): Code(s): J44.9 - Chronic obstructive pulmonary disease, unspecified Plan: Continue with inhaler on albuterol and Trelegy (4) Impaired glucose tolerance: Code(s): R73.02 - Impaired glucose tolerance (oral) Plan: Decrease the amount of carbohydrate intake, pasta, bread, rice and potatoes are all sugar and that is aside from all the sweet stuff, remember that fruits are good but they are Sweet also. (5) Hypercholesterolemia: Code(s): E78.00 - Pure hypercholesterolemia, unspecified Plan: Avoid fried foods, chicken skin, eggs, butter margarine, pastries and meat. Be it pork or beef they have a lot of cholesterol LDL goal of less than 100 and triglyceride of less than 150 patient on pravastatin 20 mg once a day (6) Severe obstructive sleep apnea: Comment: CPAP use Code(s): G47.33 - Obstructive sleep apnea (adult) (pediatric) Plan: Continue with the CPAP more than 4 hours a night and benefits from this (7) Persistent atrial fibrillation: Code(s): I48.19 - Other persistent atrial fibrillation Plan: Continue with anticoagulation (8) Peripheral vascular disease: Code(s): I73.9 - Peripheral vascular disease, unspecified Orders: Orders Free T4 (Free Thyroxine) Today M06.00 - Rheumatoid arthritis without rheumatoid factor, unspecified site Thyroid Stimulating Hormone Today M06.00 - Rheumatoid arthritis without rheumatoid factor, unspecified site Lipid Panel Today E78.00 - Pure hypercholesterolemia, unspecified, M06.00 - Rheumatoid arthritis without rheumatoid factor, unspecified site Coding Level of Care Code Est Pt Level 4 (75210) Diagnoses Plantar ulcer of right foot L97.519 Seronegative rheumatoid arthritis M06.00 Moderate COPD (chronic obstructive pulmonary disease) J44.9 Impaired glucose tolerance R73.02 Hypercholesterolemia E78.00 Severe obstructive sleep apnea G47.33 Persistent atrial fibrillation I48.19 Peripheral vascular disease I73.9 Additional Codes PHQ-9 - 60092 - PHQ-9 Billing: ([id number])
== END 2022-12-11 10:35 | disposition home or self-care (01) ==
PROVIDERS: PCP Internal Medicine; Visit Provider Internal Medicine
DX: L97.519 Non-pressure chronic ulcer of other part of right foot with unspecified severity (principal); M06.00 Rheumatoid arthritis without rheumatoid factor, unspecified site; J44.9 Chronic obstructive pulmonary disease, unspecified; I48.19 Other persistent atrial fibrillation
CPT/HCPCS: 99214

== ENCOUNTER → 2022-12-16 09:39 | Outpatient (BNVA) | payer MEDICARE, MEDICAID, SELFPAY | PROVIDERS: PCP Internal Medicine; Visit Provider Internal Medicine ==

== ENCOUNTER 2022-12-28 08:21 | Outpatient (REF) | payer MEDICARE, MEDICAID, SELFPAY ==
--- NOTE | ~2022-12-28 | CT_ITS ---
EXAMINATION: CT CHEST WITHOUT CONTRAST CLINICAL INFORMATION: Altered pulmonary nodule COMPARISON: CT chest from 06/12/2022, CT biopsy lung right upper lobe from 06/30/2022 TECHNIQUE: Multidetector volumetric CT imaging of the chest was done. Axial MIP volume rendering provided. Sagittal and coronal reformatted images were obtained. This CT examination was performed using dose optimization techniques as appropriate, variously including the following: *Automated exposure control *Adjustment of mA and/or kV according to patient size (this includes techniques or standardized protocols for targeted exams where dose is matched to indication/reason for exam; i.e. extremities or head) *Use of iterative reconstruction technique DLP: 321 mGy-cm FINDINGS: LUNGS/PLEURA: Emphysematous changes redemonstration of nodule in the right upper lobe along its lateral margin measuring up to 10 mm (series 7, image 201), stable. Remaining smaller pulmonary nodules are stable. No new enlarged or suspicious pulmonary nodules or masses are noted. Stable volume loss of the left hemithorax with peripheral reticular nodular opacities. No new enlarged or suspicious pulmonary nodules or masses are noted. Central airways are patent. No pneumothorax. No large pleural effusion. MEDIASTINUM: Heart is not enlarged. No pericardial effusion. Coronary artery calcifications are noted. Slight volume loss of left hemithorax. Aorta is nonaneurysmal and demonstrates atherosclerotic calcifications. Main pulmonary artery is not enlarged. A few mildly prominent though nonenlarged mediastinal lymph nodes are redemonstrated. Visualized portions of the thyroid are unremarkable. AXILLA: No lymphadenopathy. UPPER ABDOMEN: Bilateral renal cysts are redemonstrated. Splenule measuring 7 mm. OSSEOUS STRUCTURES: Multilevel degenerative changes of the thoracolumbar spine with anterior bridging osteophytes. Chronic multiple left-sided rib fractures with widening of the space between the left seventh and eighth ribs with slight herniation of lung in these regions, stable. Chronic multiple right posterior lateral fractures of the seventh through ninth ribs, stable. CT/CT chest wo IV con IMPRESSION: 1. Redemonstration of nodule in the right upper lobe along its lateral margin measuring up to 10 mm, stable. This has been previously biopsied. Remaining smaller pulmonary nodules are stable.No new enlarged or suspicious pulmonary nodules or masses are noted. 2. Stable volume loss of the left hemithorax with peripheral reticular nodular opacities. 3. Bilateral renal cysts are redemonstrated. 4. Splenule measuring 7 mm. 5. Chronic multiple left-sided rib fractures with widening of the space between the left seventh and eighth ribs with slight herniation of lung in these regions, stable. Chronic multiple right posterior lateral fractures of the seventh through ninth ribs, stable.
== END 2022-12-28 08:22 | disposition home or self-care (01) ==
LOC: HO.CT 08:21
PROVIDERS: PCP Internal Medicine; Visit Provider Internal Medicine Pulmonary Disease
DX: R91.1 Solitary pulmonary nodule (principal)
CPT/HCPCS: 71250

== ENCOUNTER → 2022-12-30 08:25 | Outpatient (REF) | payer MEDICARE, MEDICAID, SELFPAY ==
--- NOTE | 2022-12-30 13:03 | ECG_ITS ---
Test Reason : pre op Blood Pressure : / mmHG Vent. Rate : 057 BPM Atrial Rate : 000 BPM P-R Int : 000 ms QRS Dur : 132 ms QT Int : 446 ms P-R-T Axes : 000 -50 014 degrees QTc Int : 434 ms Atrial fibrillation with slow ventricular response Left axis deviation Right bundle branch block Left anterior fascicular block Abnormal ECG When compared with ECG of 27-FEB-2021 17:41, No significant changes seen Referred By: Cely Hamilton Electronically Signed By:MICHELE MEJÍA MD
[2022-12-30 13:42] LABS: Basophils Absolute Auto 0.1 X10*3/uL (0.0-0.2); Basophils Percent Auto 0.5 % (0-2); Eosinophils Absolute Auto 0.2 X10*3/uL (0.0-0.4); Eosinophils Percent Auto 1.6 % (0-4); Hematocrit 43.6 % (42.0-52.0); Hemoglobin 14.4 g/dl (14.0-18.0); Imm Gran Abs Auto 0.05 X10*3/uL (0.00-0.03); Imm Gran Pct Auto 0.5 % (0.0-0.4); Lymphocytes Absolute Auto 1.9 X10*3/uL (1.2-4.9); Lymphocytes Percent Auto 19.6 % (20-40); MANUAL DIFF FLAG NO; Mean Corpuscular Hemoglobin 32.6 pg (27.0-33.0); Mean Corpuscular Volume 98.6 fL (80.0-98.0); Mean Platelet Volume 9.5 fL (9.4-12.4); Monocytes Absolute Auto 0.9 X10*3/uL (0.1-1.2); Monocytes Percent Auto 8.6 % (2-11); Neutrophils Absolute Auto 6.9 x10*3/uL (2.0-8.3); Neutrophils Percent Auto 69.2 % (45-73); Platelet Count 256 X10*3/uL (160-400); Red Blood Count 4.42 X10*6/uL (4.60-5.80); Red Cell Distribution Width 14.5 % (11.0-16.0); White Blood Count 9.9 X10*3/uL (4.8-10.8)
[2022-12-30 14:12] LABS: INTERNATIONAL NORM RATIO 2.3 (0.9-1.1); Prothrombin Time 27.9 SEC (11.1-13.3)
[2022-12-30 14:19] LABS: Erythrocyte Sedimentation Rate 14 MM/HR (0-15)
[2022-12-30 14:22] LABS: Alanine Aminotransferase 17 U/L (0-40); Albumin Level 4.5 g/dL (3.5-5.0); Alkaline Phosphatase 53 U/L (39-117); Anion Gap 15 (12-20); Aspartate Amino Transferase 19 U/L (5-37); Bilirubin Total 0.7 mg/dL (0.0-1.0); Blood Urea Nitrogen 16 mg/dL (9-16); C Reactive Protein 2.16 mg/dL (< or = 0.50); Calcium 9.7 mg/dL (8.4-10.2); Carbon Dioxide 29 mmol/L (22-29); Chloride 102 mmol/L (96-108); Estimated Glomerular Filt Rate > 60; Glucose Random 93 mg/dL (60-115); Potassium 4.1 mmol/L (3.3-5.1); Sodium 142 mmol/L (135-145)
[2022-12-30 14:36] LABS: TSH reflex Free T4 1.49 uIU/mL (0.32-4.0)
== END ==
LOC: HO.CARD 08:25
PROVIDERS: Student in an Organized Health Care Education/Training Program; Absent Provider Nurse Practitioner Family; PCP Internal Medicine; Visit Provider Internal Medicine
DX: Z01.818 Encounter for other preprocedural examination (principal); I48.19 Other persistent atrial fibrillation; M06.00 Rheumatoid arthritis without rheumatoid factor, unspecified site; Z51.81 Encounter for therapeutic drug level monitoring; Z79.01 Long term (current) use of anticoagulants
CPT/HCPCS: 36415; 80053; 84443; 85025; 85027; 85610; 85652; 86140; 93005

== ENCOUNTER 2022-12-30 11:49 | Outpatient (AMB) | payer MEDICARE, MEDICAID, SELFPAY ==
[2022-12-30 11:51] VITALS: BP 148/60; PULSE 62; O2SAT 98; BMI 33.6
--- NOTE | 2022-12-30 11:51 | A.OFFPC_ITS ---
Vital Signs 12/30/22 11:51 12/30/22 12:47 Height 6 ft 3 in Weight 269 lb BMI 33.6 BP 148/60 H 124/68 Blood Pressure Location Lt brachial Lt brachial Position Sitting Sitting Pulse 62 Pulse Source Pulse Oximeter Pulse Oximetry (%) 98 Oxygen Delivery Method Room Air Intake Visit Reasons: Pre-op 01/29/23-Surgery on Toe on Right Foot Intake Note: Patient is here for a Pre-op for right foot surgery scheduled with Dr. Ry Gallagher [facility] on 01/29/23 Creative Technologist Required: No Allergies Penicillins [PCN] Allergy (Unknown, Verified 12/30/22 12:20) UNKNOWN- RXN CHILD/? HIVES Medication List - Last Reconciled 12/30/22 by ELDA Dawson albuterol sulfate 90 mcg/actuation 2 puffs inhalation Q4-6H PRN 3 months ascorbic acid (vitamin C) 1,000 mg PO DAILY bumetanide 2 mg PO BID cholecalciferol (vitamin D3) 25 mcg PO DAILY [CPAP As directed] diltiazem HCl 180 mg PO DAILY folic acid 1 mg PO DAILY 90 days hydroxychloroquine 200 mg PO BID ipratropium-albuterol 0.5 mg-3 mg(2.5 mg base)/3 mL 3 mL inhalation Q4-6H PRN 30 days lisinopril 5 mg PO DAILY omeprazole 20 mg PO DAILY pravastatin 20 mg PO DAILY Trelegy Ellipta 200-62.5-25 mcg (xizmifrnowv-rnsvxcnpc-ccindsgn) 1 inh inhalation DAILY 90 days NS warfarin 5 mg See Protocol PO DAILY Tobacco use date assessed: 12/30/22 Fall risk assessment: No Falls in past year Last assessed Fall Risk: 12/30/22 HPI Pre-op 01/29/23-Surgery on Toe on Right Foot HPI Details Patient is a 67-year-old male who presents today for preop clearance. Pt of Dr. Jacques. Surgery: Right foot surgery - corrective osteotomy right second metatarsal Date: 01/29/2023 Surgeon: Dr. Gallagher Location: [facility] Anaesthesia: IV sedation. Patient reports history of general anesthesia in the past that he tolerated well. Patient denies history of perioperative hypothermia or blood clotting disorders. Patient is on warfarin for persistent atrial fibrillation. Medical history significant for primary osteoarthritis of knees bilateral, severe JENNIFER-on CPAP, hypercholesterolemia, impaired glucose tolerance, peripheral vascular disease, moderate COPD, history of right leg DVT, cor pulmonale - followed by Cardiology Dr. Navas, seronegative rheumatoid arthritis, right upper lobe pulmonary nodule, plantar ulcer of right foot, long-term use of hydroxychloroquine, persistent atrial fibrillation. Patient denies shortness of breath or chest pain. [facility] Medical History COVID-19 virus infection Post covid-19 condition, unspecified Hospital discharge follow-up Persistent atrial fibrillation On methotrexate therapy Cor pulmonale (chronic) Peripheral neuropathy Current use of anticoagulant therapy Insomnia Hemothorax Vitamin D deficiency Right renal stone Peripheral vascular disease GERD (gastroesophageal reflux disease) Impaired glucose tolerance Hypercholesterolemia Hypertension Atrial fibrillation Severe obstructive sleep apnea Primary osteoarthritis of knees, bilateral alf methotrexate user Seronegative rheumatoid arthritis Current use of anticoagulant therapy Moderate COPD (chronic obstructive pulmonary disease) History of cardioversion Surgical History History of umbilical hernia repair Hx of tonsillectomy S/P emergency tracheotomy for assistance in breathing Family History Father No problems noted. Mother Rheumatoid arteritis Sister Breast cancer Other Mental health disorder Substance use disorder Social History Household Members: Significant Other Housing: Apartment Do you presently have visiting nurse or other home services: No Alcohol intake: former Patient Tobacco Use Status: Former Tobacco user Quit Date: 2015 Tobacco use type: Cigarette Years Smoked: 49 e-Cigarette/Vaping Use: Never Used Second Hand Smoke Exposure: No Substance Use Type: Marijuana service: No Current occupational status: retired Cognitive needs: No Hearing needs: No Vision needs: Yes Questionnaire PHQ-9 Over the last 2 weeks, how often have you been bothered by any of the following problems? 1. Little interest or pleasure in doing things: several days 2. Feeling down, depressed, or hopeless: several days 3. Trouble falling or staying asleep, or sleeping too much: not at all 4. Feeling tired or having little energy: not at all 5. Poor appetite or overeating: not at all 6. Feeling bad about yourself - or that you are a failure or have let yourself or your family down: not at all 7. Trouble concentrating on things, such as reading the newspaper or watching television: not at all 8. Moving or speaking so slowly that other people could have noticed. Or the opposite - being so fidgety or restless that you have been moving around a lot more than usual: not at all 9. Thoughts that you would be better off or of hurting yourself in some way: not at all Total score: 2 Depression Screening Interpretation: Negative Depression Screening Done: Yes 28578 - PHQ-9 Billing: Yes Source: Developed by Drs. Zachary Epps, Aleta Stone, Chaparro Nation and colleagues, with an educational anastacio from [employer]. Thrive Questionnaire Date Thrive assessed: 04/27/22 MARELY-7 AMB Questionnaire MARELY-7 Date MARELY - 7 assessed: 04/27/22 Source: Developed by Drs. Zachary Epps, Aleta Stone, Chaparro Nation and colleagues, with an educational anastacio from [employer]. Review of Systems Const Denies body aches, Denies chills, Denies fever(s) and Denies headache(s) Eyes Denies change in vision ENT Denies dizziness, Denies otalgia, Denies headache(s), Denies nasal discharge, Denies sinus pain and Denies sore throat Card Denies chest pain, Denies lightheadedness and Denies dyspnea Resp Denies cough, Denies dyspnea and Denies wheezing GI Denies abdominal pain, Denies constipation, Denies diarrhea, Denies nausea and Denies vomiting Denies dysuria Musc Details: Right foot pain Right foot numbness Denies myalgias Skin/Breast Details: Right foot wound Neuro Denies dizziness and Denies headache(s) Aller/Immun Denies wheezing Physical exam (Primary Care) Vital Signs: Last Vital Signs Pulse 62 12/30/22 11:51 BP 124/68 12/30/22 12:47 Pulse Ox 98 12/30/22 11:51 Oxygen Delivery Method Room Air 12/30/22 11:51 BMI result Body Mass Index 33.6 Tobacco/Smoking Status: Tobacco use Status Tobacco use date assessed 12/30/22 12/30/22 11:53 Patient Tobacco Use Status Former Tobacco user 11/01/23 11:53 Tobacco use type Cigarette 12/30/22 11:53 e-Cigarette/Vaping Use Never Used 12/30/22 11:53 PHQ-9: PHQ-9 Score PHQ-9: Total score 2 12/31/22 10:52 Depression Screening Interpretation: Negative Thrive Assessment: Date of Thrive Assessment Date Thrive assessed 04/27/22 12/30/22 11:53 Const General: cooperative and no acute distress Orientation/consciousness: patient oriented x3 HENMT Head: Yes normocephalic and Yes atraumatic Ears: TM's normal bilaterally Face and sinus: Yes sinuses nontender Mouth: oropharynx normal and moist mucous membranes Throat: Yes posterior oropharynx normal Eyes General: appearance normal, both eyes and all related structures Pupils: Equal, round and reactive pupils present EOM: EOMs intact bilaterally Neck Neck: Yes normal visual inspection, Yes full ROM and Yes no lymphadenopathy Thyroid: Thyroid normal Resp Effort & Inspection: normal respiratory effort and able to speak in complete sentences Auscultation: clear to auscultation bilaterally (Bilateral upper), no crackles, no rales, no rhonchi and wheezes (Bilateral lower) expiratory wheezes Cardio Rate: regular rate Rhythm: regular rhythm Heart sounds: S1 normal heart sound present, S2 normal heart sound present and no murmurs Peripheral pulses: radial pulses present on the right GI Palpation (GI): Soft to palpation, not firm, nontender, no guarding, not rigid and no hepatosplenomegaly Auscultation: normal bowel sounds Skin Other: Bilateral lower extremity with increased pigmentation Right foot plantar aspect open area about 7 mm with slough inside, patient applies dressings Neuro General: patient oriented x3 Cranial nerves: Yes Equal, round and reactive pupils present Gait exam (Neuro): Normal gait present Extrem Other: Right lower extremity with trace edema General: Yes full ROM Results AMB INR Fingerstick AMB INR Fingerstick 2.5 Last Edit by Floir Gamboa RN on 12/30/22 08:29 AMB INR Fingerstick AMB INR Fingerstick 2.5 Last Edit by Flori Gamboa RN on 12/30/22 16:03 AMB INR Fingerstick AMB INR Fingerstick 2.5 Last Edit by Flori Gamboa RN on 12/30/22 16:03 Results Reviewed Results Reviewed: Laboratory Tests 12/30/22 12/30/22 12:57 Unknown WBC 9.9 RBC 4.42 L Hgb 14.4 Hct 43.6 MCV 98.6 H MCH 32.6 MCHC 33.0 RDW 14.5 Plt Count 256 MPV 9.5 PT 27.9 H INR 2.3 H Sodium 142 Potassium 4.1 Chloride 102 Carbon Dioxide 29 Anion Gap 15 BUN 16 Creatinine 0.93 Estim Creat Clear Calc Not Reportable Estimated GFR > 60 Random Glucose 93 Calcium 9.7 D TSH 1.49 Laboratory Tests 08/21/22 09:52 Hemoglobin A1c % 5.6 Assessment and Plan Assessment & Plan (1) Preoperative clearance: Code(s): Z01.818 - Encounter for other preprocedural examination Plan: Will request cardiology clearance due to abnormal EKG and plan for IV sedation for anaesthesia. Patient is not cleared for surgery. Ordering Physician: Cely Hamilton Date of Service: 12/30/22 Procedure(s): ECG 12 lead EKG Accession Number(s): [id number] cc: Cely Hamilton~ Test Reason : pre op Blood Pressure : / mmHG Vent. Rate : 057 BPM Atrial Rate : 000 BPM P-R Int : 000 ms QRS Dur : 132 ms QT Int : 446 ms P-R-T Axes : 000 -50 014 degrees QTc Int : 434 ms Atrial fibrillation with slow ventricular response Left axis deviation Right bundle branch block Left anterior fascicular block Abnormal ECG When compared with ECG of 27-FEB-2021 17:41, No significant changes seen Referred By: Cely Hamilton Electronically Signed By:MICHELE MEJÍA MD (2) Plantar ulcer of right foot: Code(s): L97.519 - Non-pressure chronic ulcer of other part of right foot with unspecified severity Plan: Surgery: Right foot surgery - corrective osteotomy right second metatarsal Date: 01/29/2023 Surgeon: Dr. Gallagher Location: [facility] Anaesthesia: IV sedation. (3) Moderate COPD (chronic obstructive pulmonary disease): Code(s): J44.9 - Chronic obstructive pulmonary disease, unspecified Plan: Physical exam with bilateral lower lungs with expiratory wheezes, patient reports he was outside yesterday and maybe this caused his COPD flareup. Will treat with prednisone for 5 days. Patient is to continue inhalers as prescribed (4) Obesity (BMI 30.0-34.9): Code(s): E66.9 - Obesity, unspecified Plan: BMI 33.6 Orders: Orders TSH reflex Free T4 12/30/22818 - Encounter for other preprocedural examination ECG 12 lead EKG 12/30/22 - Encounter for other preprocedural examination Basic Metabolic Panel 12/30/22 - Encounter for other preprocedural examination Complete Blood Count no Diff 12/30/22 - Encounter for other preprocedu ral examination Prothrombin Time INR 12/30/22 - Encounter for other preprocedural examination Hemoglobin A1c 12/30/22 - Encounter for other preprocedural examination Medications: New prednisone 40 mg (2 x 20 mg) PO DAILY 5 days 10 tabs 0RF J44.9 - Chronic obstructive pulmonary disease, unspecified Coding Level of Care Code Est Pt Level 3 (62763) Diagnoses Preoperative clearance Z81 Plantar ulcer of right foot L97.519 Moderate COPD (chronic obstructive pulmonary disease) J44.9 Obesity (BMI 30.0-34.9) E66.9
[2022-12-30 12:47] VITALS: BP 124/68
== END 2022-12-30 12:59 | disposition home or self-care (01) ==
PROVIDERS: PCP Internal Medicine; Visit Provider Nurse Practitioner Family
DX: Z01.818 Encounter for other preprocedural examination (principal); L97.519 Non-pressure chronic ulcer of other part of right foot with unspecified severity; J44.9 Chronic obstructive pulmonary disease, unspecified
CPT/HCPCS: 99213

== ENCOUNTER 2023-01-05 10:37 | Outpatient (AMB) | payer MEDICARE, MEDICAID, SELFPAY ==
--- NOTE | 2023-01-05 10:50 | A.OFFVIS_ITS ---
Intake Vital Signs 01/05/23 10:51 Height 6 ft 3 in Weight 276 lb 10.882 oz BMI 34.6 BP 118/64 Blood Pressure Location Lt brachial Position Sitting Pulse 60 Pulse Source Auscultation Pulse Oximetry (%) 97 Oxygen Delivery Method Room Air Intake Visit Reasons: COPD, CT 12/28 Allergies Penicillins [PCN] Allergy (Unknown, Verified 01/05/23 10:55) UNKNOWN- RXN CHILD/? HIVES HPI COPD, CT 12/28 HPI Details 67-year-old gentleman, former 40+ pack-y ear smoker, quit 2016 with underlying history of AFib on anticoagulation, heart failure, long-term methotrexate use, COPD, prior admission for COVID-19 discharged on supplemental oxygen at 6 L with exertion and 2 L at night, no longer on oxygen, followed for moderate COPD, severe obstructive sleep apnea, pulmonary nodules, and dyspnea on exertion. He has been using Trelegy and twice a day bumetanide with good control of his symptoms. His CPAP is working well for his underlying obstructive sleep apnea. His exercise capacity continues to improve. Patient did have a 2nd follow-up CT chest after the biopsy of his nodules that shows stability of underlying nodules. 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 Mother Rheumatoid arteritis Sister Breast cancer Other Mental health disorder Substance use disorder Social History Household Members: Significant Other Housing: Apartment Do you presently have visiting nurse or other home services: No Alcohol intake: former Patient Tobacco Use Status: Former Tobacco user Quit Date: 2015 Tobacco use type: Cigarette Years Smoked: 49 e-Cigarette/Vaping Use: Never Used Second Hand Smoke Exposure: No Substance Use Type: Marijuana service: No Current occupational status: retired Cognitive needs: No Hearing needs: No Vision needs: Yes Review of Systems Const Denies daytime sleepiness, Denies excessive sweating, Denies fatigue, Denies fever(s), Denies lethargy, Denies malaise, Denies night sweats, Denies snoring and Denies weight loss Eyes Denies blurry vision and Denies itchy eyes ENT Denies nasal congestion, Denies post nasal drip, Denies sinus pain, Denies sinus pressure and Denies other ( Thrush) Card Denies chest pain, Denies pedal edema, Denies dyspnea, Denies orthopnea and Denies paroxysmal nocturnal dyspnea Resp Denies cough, Denies hemoptysis, Denies excessive phlegm production, Denies dyspnea, Denies snoring and Denies wheezing GI Denies abdominal pain and Denies heartburn Musc Denies myalgias, Denies arthralgias and Denies joint swelling Skin/Breast Denies rash Neuro Denies memory loss and Denies seizure-like activity Psych Denies abnormal sleep pattern, Denies anxiety and Denies memory loss Endo Denies excessive sweating, Denies fatigue and Denies heat intolerance Augie/Lymph Denies easy bruising Aller/Immun Denies itchy eyes, Denies seasonal rhinorrhea and Denies wheezing Physical Exam Vital Signs: Last Vital Signs Pulse 60 01/05/23 10:51 BP 118/64 01/05/23 10:51 Pulse Ox 97 01/05/23 10:51 Oxygen Delivery Method Room Air 01/05/23 10:51 BMI result Body Mass Index 34.6 Const General: no acute distress and alert Nutritional Appearance: obese Orientation/consciousness: Other orientation findings ( oriented) HEENT Head: Yes atraumatic Eyes General: appearance normal, both eyes and all related structures Sclerae: sclerae normal EOM: EOMs intact bilaterally Neck Neck: Yes supple Lymphatic: no lymphadenopathy noted Resp Effort & Inspection: normal respiratory effort and no use of accessory muscles Auscultation: clear to auscultation bilaterally Cardio Rate: regular rate Rhythm: regular rhythm Heart sounds: no gallops, no murmurs and no rubs Skin General skin exam: other ( warm) Extrem General: No clubbing, No cyanosis and Yes edema (1+ bilateral) Assessment & Plan Assessment & Plan (1) Moderate COPD (chronic obstructive pulmonary disease): Code(s): J44.9 - Chronic obstructive pulmonary disease, unspecified Plan: Well controlled on current regimen of Trelegy, duo nebs, and albuterol MDI. Continue current regimen. (2) Lower extremity edema: Code(s): R60.0 - Localized edema Plan: Well controlled on bumetanide 2 mg twice a day. Continue current regimen. (3) Pulmonary nodules: Code(s): R91.8 - Other nonspecific abnormal finding of lung field Plan: Results of follow-up CT chest after biopsy reviewed, underlying stable pulmonary nodule. Will repeat CT chest in 12 months. (4) Encounter for preoperative pulmonary examination: Code(s): Z01.811 - Encounter for preprocedural respiratory examination Plan: At this time patient is a low risk for pulmonary preoperative complications for the proposed right foot surgery either under general anesthesia or monitored anesthesia care. Coding Level of Care Code Est Pt Level 4 (64691) Diagnoses Moderate COPD (chronic obstructive pulmonary disease) J44.9 Lower extremity edema R60.0 Pulmonary nodules R91.8 Encounter for preoperative pulmonary examination Z01.811
[2023-01-05 10:51] VITALS: BP 118/64; PULSE 60; O2SAT 97; BMI 34.6
== END 2023-01-05 11:07 | disposition home or self-care (01) ==
PROVIDERS: PCP Internal Medicine; Visit Provider Internal Medicine Pulmonary Disease
DX: J44.9 Chronic obstructive pulmonary disease, unspecified (principal); R60.0 Localized edema; R91.8 Other nonspecific abnormal finding of lung field; Z01.811 Encounter for preprocedural respiratory examination
CPT/HCPCS: 99214

== ENCOUNTER → 2023-01-05 10:37 | Outpatient (BNVA) | payer MEDICARE, MEDICAID, SELFPAY | PROVIDERS: PCP Internal Medicine; Visit Provider Internal Medicine Pulmonary Disease | DX: Z01.811 Encounter for preprocedural respiratory examination (principal); J44.9 Chronic obstructive pulmonary disease, unspecified; R91.8 Other nonspecific abnormal finding of lung field; R60.0 Localized edema; Z87.891 Personal history of nicotine dependence; Z79.01 Long term (current) use of anticoagulants; Z79.631 Long term (current) use of antimetabolite agent; Z99.81 Dependence on supplemental oxygen | CPT/HCPCS: 99212 ==

== ENCOUNTER → 2023-01-06 09:59 | Outpatient (BNVA) | payer MEDICARE, MEDICAID, SELFPAY | PROVIDERS: PCP Internal Medicine; Visit Provider Internal Medicine ==

== ENCOUNTER 2023-01-08 09:16 | Outpatient (AMB) | payer MEDICARE, MEDICAID, SELFPAY ==
[2023-01-08 09:29] VITALS: BP 120/62; PULSE 58; BMI 33.8
--- NOTE | 2023-01-08 09:29 | MHC.OFFVIS ---
Intake Vital Signs 01/08/23 09:29 Height 6 ft 3 in Weight 270 lb 11.642 oz BMI 33.8 BP 120/62 Blood Pressure Location Lt brachial Position Sitting Pulse 58 Intake Visit Reasons: Pre-op Foot surgery Allergies Penicillins [PCN] Allergy (Unknown, Verified 01/08/23 09:33) UNKNOWN- RXN CHILD/? HIVES Medication List - Last Reconciled 01/08/23 by Virginia Sullivan NP-C albuterol sulfate 90 mcg/actuation 2 puffs inhalation Q4-6H PRN 3 months ascorbic acid (vitamin C) 1,000 mg PO DAILY bumetanide 2 mg PO BID cholecalciferol (vitamin D3) 25 mcg PO DAILY [CPAP As directed] diltiazem HCl 180 mg PO DAILY folic acid 1 mg PO DAILY 90 days hydroxychloroquine 200 mg PO BID ipratropium-albuterol 0.5 mg-3 mg(2.5 mg base)/3 mL 3 mL inhalation Q4-6H PRN 30 days lisinopril 5 mg PO DAILY omeprazole 20 mg PO DAILY pravastatin 20 mg PO DAILY Trelegy Ellipta 200-62.5-25 mcg (djbbfxrqpof-bxfcdwqxa-qiflwdmi) 1 inh inhalation DAILY 90 days NS warfarin 5 mg See Protocol PO DAILY HPI Pre-op Foot surgery HPI Details Konrad is a 67-year-old male with past medical history hypertension, hyperlipidemia, impaired fasting glucose, obesity, peripheral vascular disease, chronic cor pulmonale, chronic atrial fibrillation, severe obstructive sleep apnea with CPAP use who presents for follow-up. Today he reports that he will be having surgery on his right foot in the near future. He describes at the bones have moved down and putting pressure on the bottom of his foot causing ulcers. At times his activity is limited by this. No chest discomfort at rest or with activity. He does have some mild shortness of breath with exertion. No PND, orthopnea or edema. He is wearing compression stockings at this visit. No palpitations, presyncope, syncope, falls. He feels he has good activity tolerance. Taking meds as directed. Compliant with CPAP each night [facility] Medical History (Updated 01/08/23 @ 11:10 by Virginia Sullivan CONTRACT SHELTERED WORKSHOP SUPERVISORLyricC) Current use of anticoagulant therapy COVID-19 virus infection Post covid-19 condition, unspecified Hospital discharge follow-up Persistent atrial fibrillation On methotrexate therapy Cor pulmonale (chronic) Peripheral neuropathy Insomnia Hemothorax Vitamin D deficiency Right renal stone Peripheral vascular disease GERD (gastroesophageal reflux disease) Impaired glucose tolerance Hypercholesterolemia Hypertension Atrial fibrillation Severe obstructive sleep apnea Primary osteoarthritis of knees, bilateral 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 Mother Rheumatoid arteritis Sister Breast cancer Other Mental health disorder Substance use disorder Social History Household Members: Significant Other Housing: Apartment Do you presently have visiting nurse or other home services: No Alcohol intake: former Patient Tobacco Use Status: Former Tobacco user Quit Date: 2015 Tobacco use type: Cigarette Years Smoked: 49 e-Cigarette/Vaping Use: Never Used Second Hand Smoke Exposure: No Substance Use Type: Marijuana service: No Current occupational status: retired Cognitive needs: No Hearing needs: No Vision needs: Yes Review of Systems Const All systems reviewed & are unremarkable except as noted in HPI and below ENT Denies dizziness Card Denies chest pain, Denies chest pain at rest, Denies chest pain with activity, Denies rapid heart rate, Denies pedal edema, Denies edema, Denies leg edema, Denies lightheadedness, Denies palpitations, Denies dyspnea, Denies dyspnea on exertion and Denies orthopnea Resp Denies cough, Denies dyspnea and Denies dyspnea on exertion GI Denies hematochezia and Denies change in stool character Musc Details: issues with right foot, in need of surgery Denies limited range of motion, Denies muscle cramps, Denies muscle weakness, Denies numbness, Denies radiating pain into limb, Denies stiffness and Denies tingling Neuro Denies dizziness, Denies numbness and Denies tingling Endo Denies palpitations Physical Exam Vital Signs: Last Vital Signs Pulse 58 01/08/23 09:29 BP 120/62 01/08/23 09:29 BMI result Body Mass Index 33.8 Const General: cooperative, healthy appearing, comfortable and no acute distress Orientation/consciousness: patient oriented x3 Neck Neck: Yes normal visual inspection Resp Other: expiratory wheezes Effort & Inspection: normal respiratory effort Auscultation: clear to auscultation bilaterally, no crackles, no rales and no rhonchi Cardio Jugular venous distension: no JVD Rate: regular rate Rhythm: regular rhythm Heart sounds: S1 normal heart sound present, S2 normal heart sound present, no murmurs and no rubs GI Inspection: Yes normal to inspection Skin General skin exam: no rashes or lesions noted Neuro General: patient oriented x3 Extrem Other: No edema of legs, wearing compression socks General: Yes normal to inspection, No no pedal edema and No calf tenderness Psych Appearance: grossly normal Mental Status: mental status grossly normal Speech and movement: Normal speech and movement present Office Procedures EKG Details: Today, read by me, atrial fibrillation with slow ventricular response, right bundle branch block, left anterior fascicular block, bifascicular, inferior Q-waves can not exclude prior infarct, rate 58, no significant change from prior EKG, QTC 429 millisecond [id number], Complete Assessment & Plan Assessment & Plan (1) Persistent atrial fibrillation: Code(s): I48.19 - Other persistent atrial fibrillation Plan: History of persistent/chronic atrial fibrillation. He is on diltiazem for heart rate control. EKG done today showing atrial fibrillation, bifascicular block, rate 58, no significant change from last EKG. He reports good activity tolerance. Will continue on current diltiazem. He is on Coumadin for anticoagulation, INR goal 2-3. He follows with the [facility] anticoagulation [facility]. No bleeding issues reported. Continue without change. (2) Current use of anticoagulant therapy: Code(s): Z79.01 - residential (current) use of anticoagulants (3) Preoperative cardiovascular examination: Code(s): Z01.810 - Encounter for preprocedural cardiovascular examination Plan: Preop for right foot surgery on 01/29/[address] Castillo. He is unclear at present what anesthetic will be used however he is preferring to have general anesthesia. EKG done today showing AFib, bifascicular block, rate 58. Overall no change from prior. He denies any anginal sounding symptoms. His activity is limited at times related to his right foot problems. In preparation for surgery will update cardiac testing including echocardiogram and pharmacological nuclear stress test. He will not be able to walk on a treadmill at a brisk pace. Once test results are available will complete cardiac clearance. Patient is agreeable to this plan. (4) Cor pulmonale (chronic): Code(s): I27.81 - Cor pulmonale (chronic) Plan: Stable at this time. No signs of fluid overload on examination. He continues on Bumex 2 mg b.i.d.. Labs done on 12/30/2022 showed potassium 4.1, creatinine 0.93. Signs and symptoms of heart failure reviewed with him. No med changes made at present. (5) Severe obstructive sleep apnea: Comment: CPAP use Code(s): G47.33 - Obstructive sleep apnea (adult) (pediatric) Plan: Compliant with CPAP each night Orders: Orders CA echo transthoracic complete Today I27.81 - Cor pulmonale (chronic), I48.19 - Other persistent atrial fibrillation, Z01.810 - Encounter for preprocedural cardiovascular examination CA lexiscan stress w dillon Today I27.81 - Cor pulmonale (chronic), I48.19 - Other persistent atrial fibrillation, Z01.810 - Encounter for preprocedural cardiovascular examination NM cardiolite stress test Today I48.19 - Other persistent atrial fibrillation Coding Level of Care Code Est Pt Level 4 (34551) Diagnoses Persistent atrial fibrillation I48.19 Current use of anticoagulant therapy Z79.01 Preoperative cardiovascular examination Z01.810 Cor pulmonale (chronic) I27.81 Severe obstructive sleep apnea G47.33 CPT Codes EKG - CPT: [id number], Complete ([id number]) Time Spent (min) 28
== END 2023-01-08 10:06 | disposition home or self-care (01) ==
PROVIDERS: PCP Internal Medicine; Visit Provider Nurse Practitioner Family
DX: I48.19 Other persistent atrial fibrillation (principal); Z79.01 Long term (current) use of anticoagulants; Z01.810 Encounter for preprocedural cardiovascular examination; I27.81 Cor pulmonale (chronic); G47.33 Obstructive sleep apnea (adult) (pediatric)
CPT/HCPCS: 93010; 99214

== ENCOUNTER → 2023-01-08 09:16 | Outpatient (BNVA) | payer MEDICARE, MEDICAID, SELFPAY | PROVIDERS: PCP Internal Medicine; Visit Provider Nurse Practitioner Family | DX: Z01.810 Encounter for preprocedural cardiovascular examination (principal); I27.81 Cor pulmonale (chronic); G47.33 Obstructive sleep apnea (adult) (pediatric); I48.19 Other persistent atrial fibrillation; Z79.01 Long term (current) use of anticoagulants | CPT/HCPCS: 93005; 99212 ==

== ENCOUNTER → 2023-01-11 08:27 | Outpatient (REF) | payer MEDICARE, MEDICAID, SELFPAY ==
--- NOTE | ~2023-01-11 | NM_ITS ---
Lexiscan Myocardial perfusion study Indication: Abnormal EKG, preoperative cardiac evaluation Technique: The patient was brought in for a Lexiscan perfusion study on 01/11/2023 and was injected 0.4 mg of Lexiscan intravenously. Within a minute of this injection 40 mCi of sestamibi was given intravenously. Images were obtained using the SPECT gamma camera interlaced with the gating device. Images were obtained in supine position. Resting perfusion study was performed on 01/13/2023. Patient was administered 40 mCi of sestamibi intravenously at rest. Images were then obtained in supine position. Images were processed with the software and compared side to side in short axis, horizontal long axis and vertical long axis views. Total DLP 158mGy-cm. Findings: Raw acquisition reviewed. Arms by the patient's side. The stress perfusion study showed diminished tracer uptake along the inferior wall. With CT attenuation correction, there is significant improvement suggestive of diaphragmatic attenuation artifact. There is persistently reduced uptake in the apical inferior wall. The gated study shows normal LV systolic function with calculated LVEF of 59%. LV cavity is normal in size. The gated study shows normal wall thickening and contraction of segments. Resting study shows diminished tracer uptake along the inferior wall. Gating at rest reveals normal wall motion with ejection fraction at 49%. The findings are consistent with no clear reversible defects. Fixed defect in the inferior wall. NM/NM cardiolite stress test Impression: 1. Myocardial perfusion imaging study shows no clear evidence of any ischemia. Fixed inferior defect likely related to diaphragmatic attenuation artifact. In the inferoapical portion, cannot exclude a prior nontransmural infarct. 2. Gated LVEF is 59% during stress and 49% during rest. 3. Transient ischemic dilatation not present. EKG component component of the test reported separately.
--- NOTE | 2023-01-11 08:31 | CA_ITS ---
Acquisition Time: 2023-01-11 08:51:52 Total Exercise Time: 00:02:00 Test Indications: Abnormal ECG Medications: SEE H Protocol: LEXISCAN Max HR: 078 BPM 50% of Pred: 153 BPM Max BP: 122/060 mmHG Max Work Load: 1.0 METS Pharmacological stress test with Lexiscan injection, while sitting and kicking his legs, without anginal symptoms, without arrythmia, with normotensive response to injection, with nondiagnostic EKG for ischemia. Nuclear images pending. Test reviewed with Dr Hutchinson. Referred By: Virginia Sullivan Overread By: VIRGINIA SULLIVAN
== END ==
LOC: HO.CARD 08:27
PROVIDERS: PCP Internal Medicine; Visit Provider Nurse Practitioner Family
DX: Z01.810 Encounter for preprocedural cardiovascular examination (principal); I48.19 Other persistent atrial fibrillation; I27.81 Cor pulmonale (chronic)
CPT/HCPCS: 78452; 93017; A9500; J0280; J2785

== ENCOUNTER → 2023-01-11 08:31 | Outpatient (BNV) | payer MEDICARE, MEDICAID, SELFPAY | PROVIDERS: PCP Internal Medicine; Visit Provider Nurse Practitioner Family | DX: I48.19 Other persistent atrial fibrillation (principal) | CPT/HCPCS: 78452; 93016; 93018 ==

== ENCOUNTER → 2023-01-13 09:49 | Outpatient (REF) | payer MEDICARE, MEDICAID, SELFPAY ==
--- NOTE | 2023-01-13 09:51 | CA_ITS ---
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 The visually estimated ejection fraction is between 55-60%. - There is mild to moderately decreased right ventricular systolic function. - No obvious valvular pathology seen on this study. Findings Procedure Information Contrast agent, definity, is being given per protocol without apparent complications. Left Ventricle Normal left ventricular cavity size. The left ventricular systolic function is normal. The visually estimated ejection fraction is between 55-60%. There is no evidence of regional wall motion abnormalities. Diastolic function is indeterminate on the basis of available data. There is mild septal asymmetric hypertrophy. Right Ventricle Moderately increased right ventricular cavity size. There is mild to moderately decreased right ventricular systolic function. Atria The left atrium is mildly dilated. The right atrium is moderately dilated. Aortic Valve The aortic valve was not well visualized. There is no aortic valve stenosis. There is no aortic valve regurgitation. Mitral Valve The mitral valve was not well visualized. There is mild mitral annular calcification. There is no mitral valve regurgitation. There is no mitral valve stenosis. Pulmonic Valve The pulmonic valve is likely normal. Tricuspid Valve There is trace tricuspid valve regurgitation. Tricuspid regurgitation envelope is inadequate for calculation of right ventricular systolic pressure. Great Vessels The asc aorta is normal in size. Venous The inferior vena cava is mildly dilated and collapses greater than 50% with inspiration. Pericardium/Pleural There is no evidence of pericardial effusion. Prior Study Comparison No significant change compared to prior study dated: 09/09/2020. Recommendations, Care & Conclusions No obvious valvular pathology seen on this study. Measurements 2D Linear Measurements IVSd: 1.18 0.6-0.9/0.6-1.0 cm LVIDd: 5.30 3.9-5.3/4.2-5.9 cm LVIDd Index: 2.12 2.4-3.2/2.2-3.1 cm/m2 LVIDs: 3.30 2.0-3.6 cm LVPWd: 0.91 0.7-1.1 cm LA Diam: 3.30 2.7-3.8/3.0-4.0 cm LAIDs Index: 1.32 1.5-2.3 cm/m2 LV Mass: 264.04 67-162/88-224 g LV Mass Index: 105.62 43-95/49-115 g/m2 LVOT Diam: 2.20 3.0+(-)1.3 cm Mitral Valve MV Pk E: 1.49 MV Decel Time: 227.00 E'Lateral: 9.38 E'Medial: 6.94 E/E' Med: 21.50 E/E' Lat: 15.90 PHT: 67.00 MVA PHT: 3.28 Decel [place]: 6.59 Aortic Valve AoV Pk Jorge: 1.28 AoV Pk Grad: 7.00 LVOT LVOT Pk Jorge: 0.96 LVOT Pk Grad: 4.00 LVOT Diam: 2.20 LVOT Area: 3.80 Diastolic Function MV Pk E: 1.49 E'Medial: 6.94 E/E' Med: 21.50 E' Laterial: 9.38 E/E' Lat: 15.90 Right Ventricle TAPSE (mm): 15.90 TVS' Jorge: 7.25 Tricuspid Valve RA Press: 8.00 Great Vessels Aorta Sinus of Valsalva: 3.62 2.0-3.5 cm Ao Asc: 3.80 2.1-3.4 cm Updated in Other Vendor System with Status of Final Perez Navas MD electronically signed on 01/14/2023 12:51:55 PM with status of Final
== END ==
LOC: HO.CARD 09:49
PROVIDERS: PCP Internal Medicine; Visit Provider Nurse Practitioner Family
DX: Z01.810 Encounter for preprocedural cardiovascular examination (principal); I48.19 Other persistent atrial fibrillation; I27.81 Cor pulmonale (chronic)
CPT/HCPCS: 93306; Q9957

== ENCOUNTER → 2023-01-13 09:51 | Outpatient (BNV) | payer MEDICARE, MEDICAID, SELFPAY | PROVIDERS: PCP Internal Medicine; Visit Provider Internal Medicine | DX: I48.19 Other persistent atrial fibrillation (principal); I34.81 Nonrheumatic mitral (valve) annulus calcification | CPT/HCPCS: 93306 ==

== ENCOUNTER 2023-01-14 08:10 | Outpatient (AMB) | payer MEDICARE, MEDICAID, SELFPAY ==
[2023-01-14 08:19] VITALS: BP 124/66; PULSE 68; TEMP 36.1; O2SAT 99; BMI 35.2
--- NOTE | 2023-01-14 08:19 | MHC.OFFVIS ---
Intake Vital Signs 01/14/23 08:19 Height 6 ft 2 in Weight 274 lb 4.081 oz BMI 35.2 BP 124/66 Blood Pressure Location Rt brachial Position Sitting Pulse 68 Pulse Source Pulse Oximeter Temp 97.0 F Temp Source Skin Pulse Oximetry (%) 99 Intake Visit Reasons: RA Intake Note: Pt last seen 10/14/22, presents today for follow up. 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 HIVES Medication List - Last Reconciled 01/14/23 by Brea Mitchell MD albuterol sulfate 90 mcg/actuation 2 puffs inhalation Q4-6H PRN 3 months ascorbic acid (vitamin C) 1,000 mg PO DAILY bumetanide 2 mg PO BID cholecalciferol (vitamin D3) 25 mcg PO DAILY [CPAP As directed] diltiazem HCl 180 mg PO DAILY folic acid 1 mg PO DAILY 90 days hydroxychloroquine 200 mg PO BID ipratropium-albuterol 0.5 mg-3 mg(2.5 mg base)/3 mL 3 mL inhalation Q4-6H PRN 30 days lisinopril 5 mg PO DAILY omeprazole 20 mg PO DAILY pravastatin 20 mg PO DAILY Trelegy Ellipta 200-62.5-25 mcg (xepmgqytfip-wknjmgqon-trwkvdpx) 1 inh inhalation DAILY 90 days NS warfarin 5 mg See Protocol PO DAILY HPI HPI Comments History of Present Illness Details 67yoM presents for follow-up of seronegative RA. Last seen 09/2022 On hydroxychloroquine 200 mg Twice daily. Well tolerated Patient states that he is scheduled for right foot surgery January 31, he is currently in the process of getting cardiology clearance. He had an eye exam and hydroxychloroquine screening was done, patient was clear to continue hydroxychloroquine. Patient states that continues to have some stiffness in his right hand knuckles and fingers. There is no significant pain. 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 Mother Rheumatoid arteritis Sister Breast cancer Other Mental health disorder Substance use disorder Social History Household Members: Significant Other Housing: Apartment Do you presently have visiting nurse or other home services: No Alcohol intake: former Patient Tobacco Use Status: Former Tobacco user Quit Date: 2015 Tobacco use type: Cigarette Years Smoked: 49 e-Cigarette/Vaping Use: Never Used Second Hand Smoke Exposure: No Substance Use Type: Marijuana service: No Current occupational status: retired Cognitive needs: No Hearing needs: No Vision needs: Yes Review of Systems Musc Reports joint swelling, Reports limited range of motion and Reports stiffness Physical Exam Vital Signs: Last Vital Signs Temp 97.0 F 01/14/23 08:19 Pulse 68 01/14/23 08:19 BP 124/66 01/14/23 08:19 Pulse Ox 99 01/14/23 08:19 BMI result Body Mass Index 35.2 Const General: cooperative, healthy appearing and comfortable Nutritional Appearance: obese Orientation/consciousness: patient oriented x3 Limitations: no limitations HEENT Head: Yes normocephalic and Yes atraumatic Resp Other: Gets shortness of breath with talking Effort & Inspection: normal respiratory effort Neuro General: patient oriented x3 Extrem Other: Puffiness of 3rd and 4th MCPs without tenderness Positive MCP squeeze test on the left Nontender MCPs and PIPs bilaterally no ankle tenderness bilateral Flexion contracture of right 5th PIP Normal range of motion of both wrists, elbows and shoulders with without pain Left ankle tenderness Results Reviewed Results Reviewed: Laboratory Tests 0 8 Date of Service: 05/08/22 Procedure(s): XR lumbar spine 2-3V Accession Number(s): [id number] EXAMINATION: XR LUMBOSACRAL SPINE CLINICAL INFORMATION: Low back pain COMPARISON: None TECHNIQUE: Three views of the lumbosacral spine. FINDINGS: Multilevel degenerative changes, most significant in the lower lumbar region. No evidence of spondylolisthesis. Vertebral body heights appear grossly maintained. Diffuse aortic atherosclerosis is present. Soft tissues are otherwise unremarkable. XR/XR lumbar spine 2-3V IMPRESSION: Multilevel degenerative changes of the spine. Date of Service: 07/13/22 Procedure(s): XR knee standing BI Accession Number(s): [id number] EXAMINATION: XR KNEE, LEFT XR KNEE AP STANDING CLINICAL INFORMATION: Pain.? COMPARISON: Radiographs dated 05/21/2022.? TECHNIQUE: Four views of the left knee. AP bilateral standing view of the knees was obtained. FINDINGS: Bony mineralization is normal. There is moderate narrowing of the bilateral medial joint space compartments, with peripheral osteophyte formation. The bilateral lateral joint space compartments are well-maintained. There is mild narrowing of the left patellofemoral compartment, with peripheral osteophyte formation. No fracture, dislocation or significant joint effusion is seen bilaterally. There is a slight bilateral varus configuration. There are left femoral, popliteal and infrapopliteal atherosclerotic calcifications. XR/XR knee standing BI IMPRESSION: ? 1. There is moderate osteoarthritic change of the medial joint space compartment of the left knee, and mild osteoarthritic changes seen of the left patellofemoral compartment. ? 2. There is moderate osteoarthritic change of the medial joint space compartment of the right knee. ? 3. There is a slight bilateral varus configuration. Assessment & Plan Assessment & Plan (1) Seronegative rheumatoid arthritis: Comment: Methotrexate- 2017- January 2022, discontinued due to right lower extremity cellulitis Humira 2019-January 2022, discontinued due to right lower extremity cellulitis Prednisone- off since October 2019 [facility] 10/21 partially effective Code(s): M06.00 - Rheumatoid arthritis without rheumatoid factor, unspecified site Plan: This is a 67-year-old male with seronegative RA or presents for follow-up. Patient was doing fairly well on methotrexate and Humira however does were discontinued January of 2022 due to recurrent right foot wounds and right lower extremity cellulitis. Patient was started on hydroxychloroquine 3 months ago and there is some improvement. There is less tender joints. Patient is also planned for right foot surgery next month Continue hydroxychloroquine 200 mg Twice daily. Labs before next visit in 3 months (2) Long-term use of hydroxychloroquine: Code(s): Z79.899 - Other jail (current) drug therapy Plan: Patient was evaluated by Ophthalmology and cleared to continue with hydroxychloroquine Plan I spent 27 minutes reviewing patient's chart, evaluating patient, ordering diagnostic workup, counseling patient and documenting in the chart Orders: Orders Complete Blood Count Auto Diff 3 Months M06.00 - Rheumatoid arthritis without rheumatoid factor, unspecified site Comprehensive Met. Panel 3 Months M06.00 - Rheumatoid arthritis without rheumatoid factor, unspecified site C Reactive Protein 3 Months M06.00 - Rheumatoid arthritis without rheumatoid factor, unspecified site Erythrocyte Sedimentation Rate 3 Months M06.00 - Rheumatoid arthritis without rheumatoid factor, unspecified site Coding Level of Care Code Est Pt Level 4 (25465) Diagnoses Seronegative rheumatoid arthritis M06.00 Long-term use of hydroxychloroquine Z79.899
== END 2023-01-14 08:57 | disposition home or self-care (01) ==
PROVIDERS: PCP Internal Medicine; Visit Provider Student in an Organized Health Care Education/Training Program
DX: M06.00 Rheumatoid arthritis without rheumatoid factor, unspecified site (principal); Z79.899 Other long term (current) drug therapy
CPT/HCPCS: 99214

== ENCOUNTER → 2023-01-14 08:10 | Outpatient (BNVA) | payer MEDICARE, MEDICAID, SELFPAY | PROVIDERS: PCP Internal Medicine; Visit Provider Student in an Organized Health Care Education/Training Program | DX: M06.00 Rheumatoid arthritis without rheumatoid factor, unspecified site (principal); Z79.899 Other long term (current) drug therapy | CPT/HCPCS: 99212 ==

== ENCOUNTER → 2023-01-27 08:41 | Outpatient (BNVA) | payer MEDICARE, MEDICAID, SELFPAY | PROVIDERS: PCP Internal Medicine; Visit Provider Internal Medicine ==

== ENCOUNTER → 2023-01-28 13:03 | Outpatient (BNVA) | payer MEDICARE, MEDICAID, SELFPAY | PROVIDERS: PCP Internal Medicine; Visit Provider Internal Medicine ==

== ENCOUNTER → 2023-01-29 14:05 | Outpatient (BNVA) | payer MEDICARE, MEDICAID, SELFPAY | PROVIDERS: PCP Internal Medicine; Visit Provider Internal Medicine ==

== ENCOUNTER → 2023-02-01 09:36 | Outpatient (BNVA) | payer MEDICARE, MEDICAID, SELFPAY | PROVIDERS: PCP Internal Medicine; Visit Provider Internal Medicine ==

== ENCOUNTER → 2023-02-05 11:53 | Outpatient (BNVA) | payer MEDICARE, MEDICAID, SELFPAY | PROVIDERS: PCP Internal Medicine; Visit Provider Internal Medicine ==

== ENCOUNTER → 2023-02-11 12:14 | Outpatient (BNVA) | payer MEDICARE, MEDICAID, SELFPAY | PROVIDERS: PCP Internal Medicine; Visit Provider Internal Medicine ==

== ENCOUNTER → 2023-02-17 12:33 | Outpatient (BNVA) | payer MEDICARE, MEDICAID, SELFPAY | PROVIDERS: PCP Internal Medicine; Visit Provider Internal Medicine ==

== ENCOUNTER → 2023-02-24 09:26 | Outpatient (BNVA) | payer MEDICARE, MEDICAID, SELFPAY | PROVIDERS: PCP Internal Medicine; Visit Provider Internal Medicine ==

== ENCOUNTER → 2023-03-10 09:20 | Outpatient (BNVA) | payer MEDICARE, MEDICAID, SELFPAY | PROVIDERS: PCP Internal Medicine; Visit Provider Internal Medicine ==

== ENCOUNTER 2023-03-15 07:01 | Outpatient (REF) | payer MEDICARE, MEDICAID, SELFPAY ==
[2023-03-15 07:18] LABS: MANUAL DIFF FLAG NO
[2023-03-15 07:44] LABS: Basophils Absolute Auto 0.1 X10*3/uL (0.0-0.2); Basophils Percent Auto 0.8 % (0-2); Eosinophils Absolute Auto 0.2 X10*3/uL (0.0-0.4); Hemoglobin 14.7 g/dl (14.0-18.0); Imm Gran Abs Auto 0.09 X10*3/uL (0.00-0.03); Immature Retic Fraction 18.3 % (2.3-13.4); Lymphocytes Absolute Auto 1.7 X10*3/uL (1.2-4.9); Lymphocytes Percent Auto 18.1 % (20-40); Mean Corpuscular HGB Conc 33.4 g/dl (31.0-36.0); Mean Corpuscular Hemoglobin 32.7 pg (27.0-33.0); Mean Corpuscular Volume 97.8 fL (80.0-98.0); Mean Platelet Volume 9.3 fL (9.4-12.4); Monocytes Absolute Auto 0.6 X10*3/uL (0.1-1.2); Monocytes Percent Auto 6.8 % (2-11); Neutrophils Absolute Auto 6.6 x10*3/uL (2.0-8.3); Neutrophils Percent Auto 71.3 % (45-73); Platelet Count 251 X10*3/uL (160-400); Red Cell Distribution Width 14.2 % (11.0-16.0); Retic HGB Equivalent 35.9 pg (30.0-35.0); Reticulocyte Percent 2.3 % (0.5-1.8); Reticulocytes Absolute 0.101 X10*6/uL (0.026-0.095); White Blood Count 9.3 X10*3/uL (4.8-10.8)
[2023-03-15 08:23] LABS: Alanine Aminotransferase 27 U/L (0-40); Albumin Level 4.3 g/dL (3.5-5.0); Alkaline Phosphatase 57 U/L (39-117); Anion Gap 13 (12-20); Aspartate Amino Transferase 21 U/L (5-37); Bilirubin Total 0.7 mg/dL (0.0-1.0); Blood Urea Nitrogen 14 mg/dL (9-16); C Reactive Protein 2.41 mg/dL (< or = 0.50); Carbon Dioxide 31 mmol/L (22-29); Chloride 101 mmol/L (96-108); Cholesterol 190 mg/dL (<200); Estimated Glomerular Filt Rate > 60; Glucose Random 111 mg/dL (60-115); HDL Cholesterol 30 mg/dL (>40); Iron 99 mcg/dL (45-160); LDL Cholesterol Calculated 118 mg/dL (<100); Percent Iron Saturation 37 % (15-50); Potassium 3.8 mmol/L (3.3-5.1); Sodium 141 mmol/L (135-145); Total Iron Binding Capacity 270 mcg/dL (228-428); Total Protein 7.4 g/dL (6.5-8.0); Triglycerides 210 mg/dL (<150); Unsaturated Iron Binding 171 ug/dL
[2023-03-15 08:26] LABS: Ferritin 251 ng/mL (20-250); Free T4 (Free Thyroxine) 1.06 ng/dL (0.71-1.85); Thyroid Stimulating Hormone 0.91 uIU/mL (0.32-4.0)
[2023-03-15 08:33] LABS: Erythrocyte Sedimentation Rate 20 MM/HR (0-15)
[2023-03-15 08:43] LABS: Folate 14.8 ng/mL (> or = 4.0); Vitamin B12 793 pg/mL (200-900)
[2023-03-15 10:24] LABS: Alanine Aminotransferase 28 U/L (0-40); Albumin Level 4.4 g/dL (3.5-5.0); Alkaline Phosphatase 60 U/L (39-117); Anion Gap 15 (12-20); Aspartate Amino Transferase 23 U/L (5-37); Bilirubin Total 0.7 mg/dL (0.0-1.0); Blood Urea Nitrogen 14 mg/dL (9-16); Carbon Dioxide 29 mmol/L (22-29); Chloride 101 mmol/L (96-108); Estimated Glomerular Filt Rate > 60; Glucose Random 110 mg/dL (60-115); Sodium 141 mmol/L (135-145); Total Protein 7.4 g/dL (6.5-8.0)
== END 2023-03-15 07:02 | disposition home or self-care (01) ==
LOC: HO.LAB 07:01
PROVIDERS: Student in an Organized Health Care Education/Training Program; PCP Internal Medicine; Visit Provider Internal Medicine
DX: M06.00 Rheumatoid arthritis without rheumatoid factor, unspecified site (principal); R73.02 Impaired glucose tolerance (oral); E78.00 Pure hypercholesterolemia, unspecified
CPT/HCPCS: 36415; 80053; 80061; 82607; 82728; 82746; 83540; 84439; 84443; 85025; 85045; 85652; 86140

== ENCOUNTER 2023-03-22 10:43 | Outpatient (AMB) | payer MEDICARE, MEDICAID, SELFPAY ==
[2023-03-22 10:46] VITALS: BP 140/62; PULSE 52; O2SAT 96; BMI 34.0
--- NOTE | 2023-03-22 10:46 | MHC.PC.OV ---
Vital Signs 03/22/23 10:46 Height 6 ft 2 in Weight 265 lb BMI 34.0 BP 140/62 H Blood Pressure Location Lt brachial Position Sitting Pulse 52 Pulse Source Pulse Oximeter Pulse Oximetry (%) 96 Oxygen Delivery Method Room Air Intake Visit Reasons: RA, R foot ulcer, COPD Delivery Driver/Supervisor Required: No Allergies Penicillins [PCN] Allergy (Unknown, Verified 03/22/23 10:46) UNKNOWN- RXN CHILD/? HIVES Tobacco use date assessed: 03/22/23 Fall risk assessment: No Falls in past year Last assessed Fall Risk: 03/22/23 HPI RA, R foot ulcer, COPD HPI Details Patient is here for follow-up. Review of the notes in January 2023 had foot surgery for hammertoe correction 2nd right partial metatarsal head resection right 2nd with chronic ulceration that failed conservative therapy. Under Dr. Gallagher. Patient also follows up with Rheumatology December 2022 had an x-ray of the spine showing multilevel degenerative changes knee showing moderate osteoarthritis left knee mild left patellofemoral moderate osteoarthritis on the right knee on methotrexate and Humira which were discontinued due to the right foot wounds now on hydroxychloroquine. Echocardiogram December 2022The left ventricular systolic function is normal. The visually estimated ejection fraction is between 55-60%. - There is mild to moderately decreased right ventricular systolic function. - No obvious valvular pathology seen on this study. Stress test nuclear done December 2022 Myocardial perfusion imaging study shows no clear evidence of any ischemia. Fixed inferior defect likely related to diaphragmatic attenuation artifact. In the inferoapical portion, cannot exclude a prior nontransmural infarct. 2. Gated LVEF is 59% during stress and 49% during rest. 3. Transient ischemic dilatation not present.. Pulmonary notes continuing with the inhalers swelling treated with bumetanide CT scan chest yearly [facility] Medical History Current use of anticoagulant therapy COVID-19 virus infection Post covid-19 condition, unspecified Hospital discharge follow-up Persistent atrial fibrillation On methotrexate therapy Cor pulmonale (chronic) Peripheral neuropathy Insomnia Hemothorax Vitamin D deficiency Right renal stone Peripheral vascular disease GERD (gastroesophageal reflux disease) Impaired glucose tolerance Hypercholesterolemia Hypertension Atrial fibrillation Severe obstructive sleep apnea Primary 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 Mother Rheumatoid arteritis Sister Breast cancer Other Mental health disorder Substance use disorder Social History Household Members: Significant Other Housing: Apartment Do you presently have visiting nurse or other home services: No Alcohol intake: former Patient Tobacco Use Status: Former Tobacco user Quit Date: 2015 Tobacco use type: Cigarette Years Smoked: 49 e-Cigarette/Vaping Use: Never Used Second Hand Smoke Exposure: No Substance Use Type: Marijuana service: No Current occupational status: retired Cognitive needs: No Hearing needs: No Vision needs: Yes Questionnaire Thrive Questionnaire Date Thrive assessed: 03/22/23 I am a: Patient What is your living situation today?: I have a steady place to live Within the past 12 months, did the food you bought not last and you didn't have the money to get more?: Never true Within the past 12 months, did you worry whether your food would run out before you got money to buy more?: Never true THRIVE Score: 0 AUDIT C Alcohol Use Questionnaire (AUDIT-C) 1. How often do you have a drink containing alcohol?: 2-3 times a week 2. How many drinks containing alcohol do you have on a typical day when you are drinking?: 3 or 4 3. How often do you have six or more drinks on one occasion?: Never Total Score: 4 MARELY-7 AMB Questionnaire MARELY-7 Date MARELY - 7 assessed: 03/22/23 Source: Developed by Drs. Zachary Epps, Aleta Stone, Chaparro Nation and colleagues, with an educational anastacio from [employer]. Physical exam (Primary Care) Vital Signs: Last Vital Signs Pulse 52 03/22/23 10:46 BP 140/62 H 03/22/23 10:46 Pulse Ox 96 03/22/23 10:46 Oxygen Delivery Method Room Air 03/22/23 10:46 BMI result Body Mass Index 34.0 Tobacco/Smoking Status: Tobacco use Status Tobacco use date assessed 03/22/23 03/22/23 10:47 Patient Tobacco Use Status Former Tobacco user 03/22/23 10:47 Tobacco use type Cigarette 03/22/23 10:47 e-Cigarette/Vaping Use Never Used 03/22/23 10:47 Thrive Assessment: Date of Thrive Assessment Date Thrive assessed 03/22/23 03/22/23 10:53 Const General: alert; No acute distress Eyes Conjunctivae: conjunctivae normal Resp Auscultation: clear to auscultation bilaterally Cardio Rate: regular rate Rhythm: regular rhythm GI Inspection: Yes normal to inspection Extrem General: Yes normal to inspection and No edema Assessment and Plan Assessment & Plan (1) Obesity (BMI 30.0-34.9): Code(s): E66.9 - Obesity, unspecified Plan: Diet and exercise (2) Persistent atrial fibrillation: Code(s): I48.19 - Other persistent atrial fibrillation Plan: Continue with anticoagulation with Coumadin (3) Right upper lobe pulmonary nodule: Comment: November 2022 CT scan Code(s): R91.1 - Solitary pulmonary nodule Plan: Continue to follow-up CT scan (4) Seronegative rheumatoid arthritis: Comment: Methotrexate- 2017- January 2022, discontinued due to right lower extremity cellulitis Humira 2019-January 2022, discontinued due to right lower extremity cellulitis Prednisone- off since October 2019 [facility] 10/21 partially effective Code(s): M06.00 - Rheumatoid arthritis without rheumatoid factor, unspecified site Plan: Patient follows up with Rheumatology (5) Moderate COPD (chronic obstructive pulmonary disease): Code(s): J44.9 - Chronic obstructive pulmonary disease, unspecified Plan: Continue with inhalers (6) Severe obstructive sleep apnea: Comment: CPAP use Code(s): G47.33 - Obstructive sleep apnea (adult) (pediatric) Plan: Continue to use the CPAP more than 4 hours a night and benefits from this (7) Foot ulcer: Code(s): L97.509 - Non-pressure chronic ulcer of other part of unspecified foot with unspecified severity (8) Peripheral vascular disease: Code(s): I73.9 - Peripheral vascular disease, unspecified Medications: New compr.stocking,knee,long,large As directed 20-30 mm HG 2 ea 2RF I73.9 - Peripheral vascular disease, unspecified Coding Level of Care Code Est Pt Level 4 (95312) Diagnoses Obesity (BMI 30.0-34.9) E66.9 Persistent atrial fibrillation I48.19 Right upper lobe pulmonary nodule R91.1 Seronegative rheumatoid arthritis M06.00 Moderate COPD (chronic obstructive pulmonary disease) J44.9 Severe obstructive sleep apnea G47.33 Foot ulcer L97.509 Peripheral vascular disease I73.9
== END 2023-03-22 11:51 | disposition home or self-care (01) ==
PROVIDERS: PCP Internal Medicine; Visit Provider Internal Medicine
DX: M06.00 Rheumatoid arthritis without rheumatoid factor, unspecified site (principal); L97.519 Non-pressure chronic ulcer of other part of right foot with unspecified severity; J44.9 Chronic obstructive pulmonary disease, unspecified; I48.19 Other persistent atrial fibrillation; R91.1 Solitary pulmonary nodule; G47.33 Obstructive sleep apnea (adult) (pediatric)
CPT/HCPCS: 99214

== ENCOUNTER → 2023-03-24 09:16 | Outpatient (BNVA) | payer MEDICARE, MEDICAID, SELFPAY | PROVIDERS: PCP Internal Medicine; Visit Provider Internal Medicine ==

== ENCOUNTER 2023-03-29 13:32 | Outpatient (AMB) | payer MEDICARE, MEDICAID, SELFPAY ==
--- NOTE | 2023-03-29 13:34 | MHC.OFFVIS ---
Intake Vital Signs 03/29/23 13:35 Height 6 ft 2 in Weight 265 lb BMI 34.0 Intake Visit Reasons: ov- Left knee pain OA Intake Note: Konrad is a 68 year old male who presents today for a follow up of his left knee, he had a twisting injury on 07/08/22. Last injected bilateral knees on 05/14/2022. Patient reports that he has pain in the medial aspect of the knee and some prepatellar swelling. He is interested in repeat injection in the left knee and MRI Allergies Penicillins [PCN] Allergy (Unknown, Verified 03/24/23 09:29) UNKNOWN- RXN CHILD/? HIVES HPI ov- Left knee pain OA HPI Details Konrad is a 68 year old man who returns to discuss his left knee OA. He complains of pain with daily activity, along with swelling. He found good relief from his last injection on 05/01/22, but had a twisting injury on 07/08/22 which worsened his pain. He would like a repeat injection and to discuss an MRI. 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 Mother Rheumatoid arteritis Sister Breast cancer Other Mental health disorder Substance use disorder Social History Household Members: Significant Other Housing: Apartment Do you presently have visiting nurse or other home services: No Alcohol intake: former Patient Tobacco Use Status: Former Tobacco user Quit Date: 2015 Tobacco use type: Cigarette Years Smoked: 49 e-Cigarette/Vaping Use: Never Used Second Hand Smoke Exposure: No Substance Use Type: Marijuana service: No Current occupational status: retired Cognitive needs: No Hearing needs: No Vision needs: Yes Review of Systems Const All systems reviewed & are unremarkable except as noted in HPI and below Physical Exam Vital Signs: BMI result Body Mass Index 34.0 Const General: no acute distress, alert and awake Orientation/consciousness: patient oriented x3 HEENT Head: Yes normocephalic and Yes atraumatic Eyes EOM: EOMs intact bilaterally Resp Effort & Inspection: normal respiratory effort and able to speak in complete sentences Cardio Jugular venous distension: no JVD Skin General skin exam: turgor normal Rashes: no rashes Neuro General: patient oriented x3 Extrem Other: ttp medial joint line mild-moderate effusion small Phan's cyst Psych Appearance: grossly normal Affect: normal affect Attitude: cooperative Office Procedures Joint Injection/Drain Joint Injection/Drain Details: Injected 1 mL of Decadron and 3 mL 1% lidocaine and 3 mL of 0.25% Marcaine. Site was prepped using aseptic technique. Patient tolerated the procedure well. Primary Site: left knee Approach Used: anterolateral Coding - Large joint Procedure code (CPT) selection complete Assessment & Plan Assessment & Plan (1) Primary osteoarthritis of knees, bilateral: Code(s): M17.0 - Bilateral primary osteoarthritis of knee Plan: Injected left knee. If pain persists will return to see me but given concomitant OA MRI less helpful Plan Prepared for Malik Blum MD by Konrad Vásquez, medical language specialist, on 03/29/23 at 1:47 PM, EST. Coding Level of Care Code Est Pt Level 3 (23726) Diagnoses Primary osteoarthritis of knees, bilateral M17.0 CPT Codes Coding - Large joint: 01922 - Large joint ([id number])
[2023-03-29 13:35] VITALS: BMI 34.0
== END 2023-03-29 14:28 | disposition home or self-care (01) ==
LOC: HO.HOS 13:32
PROVIDERS: PCP Internal Medicine; Visit Provider Orthopaedic Surgery
DX: M17.0 Bilateral primary osteoarthritis of knee (principal)
CPT/HCPCS: 20610; 99213

== ENCOUNTER → 2023-03-29 13:32 | Outpatient (BNVA) | payer MEDICARE, MEDICAID, SELFPAY | PROVIDERS: PCP Internal Medicine; Visit Provider Orthopaedic Surgery | DX: M17.0 Bilateral primary osteoarthritis of knee (principal) | CPT/HCPCS: 20610; 99212; J0665; J1100 ==

== ENCOUNTER → 2023-04-07 10:28 | Outpatient (BNVA) | payer MEDICARE, MEDICAID, SELFPAY | PROVIDERS: PCP Internal Medicine; Visit Provider Internal Medicine ==

== ENCOUNTER → 2023-04-14 09:14 | Outpatient (BNVA) | payer MEDICARE, MEDICAID, SELFPAY | PROVIDERS: PCP Internal Medicine; Visit Provider Internal Medicine ==

== ENCOUNTER → 2023-04-21 13:25 | Outpatient (BNVA) | payer MEDICARE, MEDICAID, SELFPAY | PROVIDERS: PCP Internal Medicine; Visit Provider Internal Medicine ==

== ENCOUNTER → 2023-04-28 10:00 | Outpatient (BNVA) | payer MEDICARE, MEDICAID, SELFPAY | PROVIDERS: PCP Internal Medicine; Visit Provider Internal Medicine ==

== ENCOUNTER 2023-04-29 09:14 | Outpatient (AMB) | payer MEDICARE, MEDICAID, SELFPAY ==
--- NOTE | 2023-04-29 09:17 | A.OFFVIS_ITS ---
Intake Vital Signs 04/29/23 09:18 Height 6 ft 2 in Weight 266 lb 5.094 oz BMI 34.2 BP 134/68 Blood Pressure Location Rt brachial Position Sitting Pulse 70 Pulse Source Pulse Oximeter Intake Visit Reasons: RA Intake Note: Patient last seen 01/14/23 presents today for follow up and test results. Dental Detail Representative Required: No Accompanied by: Self / Same As Patient Allergies Penicillins [PCN] Allergy (Unknown, Verified 04/29/23 09:18) UNKNOWN- RXN CHILD/? HIVES Medication List - Last Reconciled 04/29/23 by Brea Mitchell MD acetaminophen 650 mg PO Q6H PRN albuterol sulfate 90 mcg/actuation 2 puffs inhalation Q4-6H PRN 3 months ascorbic acid (vitamin C) 1,000 mg PO DAILY bumetanide 2 mg PO BID 90 days cholecalciferol (vitamin D3) 25 mcg PO DAILY compr.stocking,knee,long,large As directed 20-30 mm HG [CPAP As directed] diltiazem HCl 180 mg PO DAILY folic acid 1 mg PO DAILY 90 days hydroxychloroquine 200 mg PO BID ipratropium-albuterol 0.5 mg-3 mg(2.5 mg base)/3 mL 3 mL inhalation Q4-6H PRN 30 days lisinopril 5 mg PO DAILY mecobalamin (vitamin B12) 1,000 mcg PO DAILY omeprazole 20 mg PO DAILY oxycodone mg PO pravastatin 20 mg PO DAILY Trelegy Ellipta 200-62.5-25 mcg (vcbtwuhalmt-bhweewxoo-xuunbbka) 1 inh inhalation DAILY 90 days NS warfarin 5 mg See Protocol PO DAILY HPI HPI Comments History of Present Illness Details 67yoM presents for follow-up of seronega tive RA. Last seen 12/2022 On hydroxychloroquine 200 mg Twice daily. Well tolerated Patient had right foot surgery in January and is feeling quite well postop. Is able to walk now with no pain. He does not have any open wounds. He states that he gets pain across his PIP is especially with activities. Has some morning stiffness of his fingers but it does not last long. States that he has significant burning and tingling sensation of his feet especially at night. States that gabapentin was tried in the past and it was not helpful. 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 Mother Rheumatoid arteritis Sister Breast cancer Other Mental health disorder Substance use disorder Social History Household Members: Significant Other Housing: Apartment Do you presently have visiting nurse or other home services: No Alcohol intake: former Patient Tobacco Use Status: Former Tobacco user Quit Date: 2015 Tobacco use type: Cigarette Years Smoked: 49 e-Cigarette/Vaping Use: Never Used Second Hand Smoke Exposure: No Substance Use Type: Marijuana service: No Current occupational status: retired Cognitive needs: No Hearing needs: No Vision needs: Yes Review of Systems Musc Reports arthralgias, Denies joint swelling and Reports stiffness Physical Exam Vital Signs: Last Vital Signs Pulse 70 04/29/23 09:18 BP 134/68 04/29/23 09:18 BMI result Body Mass Index 34.2 Const General: cooperative, healthy appearing and comfortable Nutritional Appearance: obese Orientation/consciousness: patient oriented x3 Limitations: no limitations HEENT Head: Yes normocephalic and Yes atraumatic Resp Effort & Inspection: normal respiratory effort Neuro General: patient oriented x3 Extrem Other: Right 4th and 5th MCP swelling Right 4th MCP tenderness Left 3rd MCP swelling and tenderness 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 Nontender MCPs and PIPs bilaterally no ankle tenderness bilateral Flexion contracture of right 5th PIP (boutonniere) Normal range of motion of both wrists, elbows and shoulders with without pain No ankle tenderness today No MTP tenderness bilateral but patient has reduced sensation both feet Hammertoes right foot Results Reviewed Results Reviewed: Laboratory Tests 0 8 Date of Service: 05/08/22 Procedure(s): XR lumbar spine 2-3V Accession Number(s): [id number] EXAMINATION: XR LUMBOSACRAL SPINE CLINICAL INFORMATION: Low back pain COMPARISON: None TECHNIQUE: Three views of the lumbosacral spine. FINDINGS: Multilevel degenerative changes, most significant in the lower lumbar region. No evidence of spondylolisthesis. Vertebral body heights appear grossly maintained. Diffuse aortic atherosclerosis is present. Soft tissues are otherwise unremarkable. XR/XR lumbar spine 2-3V IMPRESSION: Multilevel degenerative changes of the spine. Date of Service: 07/13/22 Procedure(s): XR knee standing BI Accession Number(s): [id number] EXAMINATION: XR KNEE, LEFT XR KNEE AP STANDING CLINICAL INFORMATION: Pain.? COMPARISON: Radiographs dated 05/21/2022.? TECHNIQUE: Four views of the left knee. AP bilateral standing view of the knees was obtained. FINDINGS: Bony mineralization is normal. There is moderate narrowing of the bilateral medial joint space compartments, with peripheral osteophyte formation. The bilateral lateral joint space compartments are well-maintained. There is mild narrowing of the left patellofemoral compartment, with peripheral osteophyte formation. No fracture, dislocation or significant joint effusion is seen bilaterally. There is a slight bilateral varus configuration. There are left femoral, popliteal and infrapopliteal atherosclerotic calcifications. XR/XR knee standing BI IMPRESSION: ? 1. There is moderate osteoarthritic change of the medial joint space compartment of the left knee, and mild osteoarthritic changes seen of the left patellofemoral compartment. ? 2. There is moderate osteoarthritic change of the medial joint space compartment of the right knee. ? 3. There is a slight bilateral varus configuration. Assessment & Plan Assessment & Plan (1) Seronegative rheumatoid arthritis: Comment: Methotrexate- 2017- January 2022, discontinued due to right lower extremity cellulitis Humira 2019-January 2022, discontinued due to right lower extremity cellulitis Prednisone- off since October 2019 [facility] 10/21 effective Code(s): M06.00 - Rheumatoid arthritis without rheumatoid factor, unspecified site Plan: This is a 67-year-old male with seronegative RA or presents for follow-up. On hydroxychloroquine 200 mg Twice daily. Doing quite well overall with very few swollen and tender joints. The majority of his pains are due to osteoarthritis. Continue with hydroxychloroquine 20 mg Twice daily Labs before next visit in 3 months (2) Long-term use of hydroxychloroquine: Code(s): Z79.899 - Other continuous churn buttermaker (current) drug therapy Plan: follow-up regularly with Ophthalmology (3) Peripheral neuropathy: Code(s): G62.9 - Polyneuropathy, unspecified Qualifiers: Peripheral neuropathy type: polyneuropathy associated with underlying disease Qualified Code(s): G63 - Polyneuropathy in diseases classified elsewhere Plan: Gabapentin was not helpful in the past. Will check bilateral lower extremity EMG/NCV. Lyrica trial. Plan I spent 27 minutes reviewing patient's chart, evaluating patient, ordering diagnostic workup, counseling patient and documenting in the chart Orders: Orders NE electromyogram (EMG) Today G62.9 - Polyneuropathy, unspecified C Reactive Protein 3 Months M06.00 - Rheumatoid arthritis without rheumatoid factor, unspecified site Erythrocyte Sedimentation Rate 3 Months M06.00 - Rheumatoid arthritis without rheumatoid factor, unspecified site Complete Blood Count Auto Diff 3 Months M06.00 - Rheumatoid arthritis without rheumatoid factor, unspecified site Comprehensive Met. Panel 3 Months M06.00 - Rheumatoid arthritis without rheumatoid factor, unspecified site Medications: New pregabalin (Lyrica) Take 1 tab twice daily. Can make you dizzy/groggy. Do not drive or operate heavy machinery if feeling as such. 60 caps 2RF Coding Level of Care Code Est Pt Level 4 (68274) Diagnoses Seronegative rheumatoid arthritis M06.00 Long-term use of hydroxychloroquine Z79.899 Polyneuropathy associated with underlying disease G63 Peripheral neuropathy type: polyneuropathy associated with underlying disease
[2023-04-29 09:18] VITALS: BP 134/68; PULSE 70; BMI 34.2
== END 2023-04-29 09:55 | disposition home or self-care (01) ==
PROVIDERS: PCP Internal Medicine; Visit Provider Student in an Organized Health Care Education/Training Program
DX: M06.00 Rheumatoid arthritis without rheumatoid factor, unspecified site (principal); Z79.899 Other long term (current) drug therapy; G63 Polyneuropathy in diseases classified elsewhere
CPT/HCPCS: 99214

== ENCOUNTER → 2023-04-29 09:14 | Outpatient (BNVA) | payer MEDICARE, MEDICAID, SELFPAY | PROVIDERS: PCP Internal Medicine; Visit Provider Student in an Organized Health Care Education/Training Program | DX: M06.00 Rheumatoid arthritis without rheumatoid factor, unspecified site (principal); G63 Polyneuropathy in diseases classified elsewhere; Z79.899 Other long term (current) drug therapy | CPT/HCPCS: 99212 ==

== ENCOUNTER → 2023-05-05 10:17 | Outpatient (BNVA) | payer MEDICARE, MEDICAID, SELFPAY | PROVIDERS: PCP Internal Medicine; Visit Provider Internal Medicine ==

== ENCOUNTER → 2023-05-12 09:17 | Outpatient (BNVA) | payer MEDICARE, MEDICAID, SELFPAY | PROVIDERS: PCP Internal Medicine; Visit Provider Internal Medicine ==

== ENCOUNTER → 2023-05-19 14:05 | Outpatient (BNVA) | payer MEDICARE, MEDICAID, SELFPAY | PROVIDERS: PCP Internal Medicine; Visit Provider Internal Medicine ==

== ENCOUNTER 2023-05-20 07:58 | Outpatient (REF) | payer MEDICARE, MEDICAID, SELFPAY ==
--- NOTE | 2023-05-20 08:02 | EMG_ITS ---
Bilateral tibial and peroneal motor studies were performed. Bilateral superficial peroneal and sural sensory studies were performed. Tibial H reflexes were obtained and paraspinal muscles were tested with a needle. IMPRESSION: Severe sensory or motor chronic peripheral neuropathy with features of axonal loss and demyelination. MD TRIP Rawls/MODL / [id number]
== END 2023-05-20 07:59 | disposition home or self-care (01) ==
LOC: HO.NEURO 07:58
PROVIDERS: PCP Internal Medicine; Visit Provider Student in an Organized Health Care Education/Training Program
DX: R20.0 Anesthesia of skin (principal); G62.9 Polyneuropathy, unspecified
CPT/HCPCS: 95886; 95911

== ENCOUNTER → 2023-05-26 11:24 | Outpatient (BNVA) | payer MEDICARE, MEDICAID, SELFPAY | PROVIDERS: PCP Internal Medicine; Visit Provider Internal Medicine ==

== ENCOUNTER → 2023-06-02 11:23 | Outpatient (BNVA) | payer MEDICARE, MEDICAID, SELFPAY | PROVIDERS: PCP Internal Medicine; Visit Provider Internal Medicine ==

== ENCOUNTER → 2023-06-09 11:16 | Outpatient (BNVA) | payer MEDICARE, MEDICAID, SELFPAY | PROVIDERS: PCP Internal Medicine; Visit Provider Internal Medicine ==

== ENCOUNTER → 2023-06-16 14:39 | Outpatient (BNVA) | payer MEDICARE, MEDICAID, SELFPAY | PROVIDERS: PCP Internal Medicine; Visit Provider Internal Medicine ==

== ENCOUNTER → 2023-06-23 08:29 | Outpatient (BNVA) | payer MEDICARE, MEDICAID, SELFPAY | PROVIDERS: PCP Internal Medicine; Visit Provider Internal Medicine ==

== ENCOUNTER → 2023-06-30 09:18 | Outpatient (BNVA) | payer MEDICARE, MEDICAID, SELFPAY | PROVIDERS: PCP Internal Medicine; Visit Provider Internal Medicine ==

== ENCOUNTER 2023-07-02 10:26 | Outpatient (AMB) | payer MEDICARE, MEDICAID, SELFPAY ==
[2023-07-02 10:30] VITALS: BP 132/67; PULSE 66; O2SAT 96; BMI 34.1
--- NOTE | 2023-07-02 10:30 | MHC.OFFVIS ---
Vital Signs 07/02/23 10:30 Height 6 ft 2 in Weight 265 lb 10.512 oz BMI 34.1 BP 132/67 Blood Pressure Location Rt brachial Position Sitting Pulse 66 Pulse Source Doppler Pulse Oximetry (%) 96 Oxygen Delivery Method Room Air Intake Visit Reasons: COPD Allergies Penicillins [PCN] Allergy (Unknown, Verified 07/02/23 10:35) UNKNOWN- RXN CHILD/? HIVES HPI HPI COPD: Details: 68-year-old gentleman, former 40+ pack-year smoker, quit 2016 with underlying history of AFib on anticoagulation, heart failure, long-term methotrexate use, COPD, prior admission for COVID-19 discharged on supplemental oxygen at 6 L with exertion and 2 L at night, no longer on oxygen, followed for moderate COPD, severe obstructive sleep apnea, pulmonary nodules, and dyspnea on exertion. He has been using Trelegy and twice a day bumetanide 2 mg with good control of his symptoms. His CPAP is working well for his underlying obstructive sleep apnea. His exercise capacity continues to improve. He denies recent exacerbations. 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 Mother Rheumatoid arteritis Sister Breast cancer Other Mental health disorder Substance use disorder Social History Household Members: Significant Other Housing: Apartment Do you presently have visiting nurse or other home services: No Alcohol intake: former Patient Tobacco Use Status: Former Tobacco user Quit Date: 2015 Tobacco use type: Cigarette Years Smoked: 49 e-Cigarette/Vaping Use: Never Used Second Hand Smoke Exposure: No Substance Use Type: Marijuana service: No Current occupational status: retired Cognitive needs: No Hearing needs: No Vision needs: Yes Review of Systems Const Denies daytime sleepiness, Denies excessive sweating, Denies fatigue, Denies fever(s), Denies lethargy, Denies malaise, Denies night sweats, Denies snoring and Denies weight loss Eyes Denies blurry vision and Denies itchy eyes ENT Denies nasal congestion, Denies post nasal drip, Denies sinus pain, Denies sinus pressure and Denies other ( Thrush) Card Denies chest pain, Denies pedal edema, Denies dyspnea, Denies orthopnea and Denies paroxysmal nocturnal dyspnea Resp Denies cough, Denies hemoptysis, Denies excessive phlegm production, Denies dyspnea, Denies snoring and Denies wheezing GI Denies abdominal pain and Denies heartburn Musc Denies myalgias, Denies arthralgias and Denies joint swelling Skin/Breast Denies rash Neuro Denies memory loss and Denies seizure-like activity Psych Denies abnormal sleep pattern, Denies anxiety and Denies memory loss Endo Denies excessive sweating, Denies fatigue and Denies heat intolerance Augie/Lymph Denies easy bruising Aller/Immun Denies itchy eyes, Denies seasonal rhinorrhea and Denies wheezing Physical Exam Vital Signs: Last Vital Signs Pulse 66 07/02/23 10:30 BP 132/67 07/02/23 10:30 Pulse Ox 96 07/02/23 10:30 Oxygen Delivery Method Room Air 07/02/23 10:30 BMI result Body Mass Index 34.1 Const General: no acute distress and alert Nutritional Appearance: obese Orientation/consciousness: Other orientation findings ( oriented) HEENT Head: Yes atraumatic Eyes General: appearance normal, both eyes and all related structures Sclerae: sclerae normal EOM: EOMs intact bilaterally Neck Neck: Yes supple Lymphatic: no lymphadenopathy noted Resp Effort & Inspection: normal respiratory effort and no use of accessory muscles Auscultation: clear to auscultation bilaterally Cardio Rate: regular rate Rhythm: regular rhythm Heart sounds: no gallops, no murmurs and no rubs Skin General skin exam: other ( warm) Extrem General: No clubbing, No cyanosis and Yes edema (1+ bilateral) Assessment & Plan Assessment & Plan (1) COPD (chronic obstructive pulmonary disease): Code(s): J44.9 - Chronic obstructive pulmonary disease, unspecified Category: Medical Plan: Well controlled on current regimen of Trelegy, duo nebs, and albuterol MDI. Continue current regimen. (2) Severe obstructive sleep apnea: Comment: CPAP use Code(s): G47.33 - Obstructive sleep apnea (adult) (pediatric) Category: Medical Plan: Well controlled on current CPAP therapy. Continue CPAP therapy. (3) Lower extremity edema: Code(s): R60.0 - Localized edema Category: Medical Plan: Well controlled on current diuretic regimen of Bumex 2 mg twice a day. Continue current regimen. Coding Level of Care Code Est Pt Level 4 (57679) Diagnoses COPD (chronic obstructive pulmonary disease) J44.9 Severe obstructive sleep apnea G47.33 Lower extremity edema R60.0
== END 2023-07-02 10:58 | disposition home or self-care (01) ==
PROVIDERS: PCP Internal Medicine; Visit Provider Internal Medicine Pulmonary Disease
DX: J44.9 Chronic obstructive pulmonary disease, unspecified (principal); G47.33 Obstructive sleep apnea (adult) (pediatric); R60.0 Localized edema
CPT/HCPCS: 99214

== ENCOUNTER → 2023-07-02 10:26 | Outpatient (BNVA) | payer MEDICARE, MEDICAID, SELFPAY | PROVIDERS: PCP Internal Medicine; Visit Provider Internal Medicine Pulmonary Disease | DX: J44.9 Chronic obstructive pulmonary disease, unspecified (principal); G47.33 Obstructive sleep apnea (adult) (pediatric); R60.0 Localized edema; Z79.899 Other long term (current) drug therapy; Z99.89 Dependence on other enabling machines and devices | CPT/HCPCS: 99212 ==

== ENCOUNTER → 2023-07-07 09:41 | Outpatient (BNVA) | payer MEDICARE, MEDICAID, SELFPAY | PROVIDERS: PCP Internal Medicine; Visit Provider Internal Medicine ==

== ENCOUNTER 2023-07-12 08:31 | Outpatient (AMB) | payer MEDICARE, MEDICAID, SELFPAY ==
--- NOTE | 2023-07-12 08:39 | MHC.OFFVIS ---
Intake Visit Reasons: OV-Left knee injection-last inj. 03/29/23 Intake Note: Konrad is a 68 year old male who presents today for a follow up of his left knee OA, Last Injection administered on 03/29/23. Patient reports that the injection was helpful but did not last as long as previous injections. Pain is felt on the medial aspect of the knee. He would like to repeat injection today. Allergies Penicillins [PCN] Allergy (Unknown, Verified 07/12/23 08:41) UNKNOWN- RXN CHILD/? HIVES HPI HPI OV-Left knee injection-last inj. 03/29/23: Details: Konrad is a 68 year old male who presents today for a follow up of his left knee OA, Last Injection administered on 03/29/23. Patient reports that the injection was helpful but did not last as long as previous injections. Pain is felt on the medial aspect of the knee. He would like to repeat injection today. 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 Mother Rheumatoid arteritis Sister Breast cancer Other Mental health disorder Substance use disorder Social History Household Members: Significant Other Housing: Apartment Do you presently have visiting nurse or other home services: No Alcohol intake: former Patient Tobacco Use Status: Former Tobacco user Quit Date: 2015 Tobacco use type: Cigarette Years Smoked: 49 e-Cigarette/Vaping Use: Never Used Second Hand Smoke Exposure: No Substance Use Type: Marijuana service: No Current occupational status: retired Cognitive needs: No Hearing needs: No Vision needs: Yes Physical Exam Const General: no acute distress, alert and awake Orientation/consciousness: patient oriented x3 HEENT Head: Yes normocephalic and Yes atraumatic Eyes EOM: EOMs intact bilaterally Resp Effort & Inspection: normal respiratory effort and able to speak in complete sentences Cardio Jugular venous distension: no JVD Skin General skin exam: turgor normal Rashes: no rashes Neuro General: patient oriented x3 Extrem Other: ttp medial joint line mild-moderate effusion small Phan's cyst Psych Appearance: grossly normal Affect: normal affect Attitude: cooperative Office Procedures Joint Injection/Drain Joint Injection/Drain Details: Injected 1 mL of Decadron and 3 mL 1% lidocaine and 3 mL of 0.25% Marcaine. Site was prepped using aseptic technique. Patient tolerated the procedure well. Primary Site: left knee Approach Used: anterolateral Coding - Large joint Procedure code (CPT) selection complete Assessment & Plan Assessment & Plan (1) Primary osteoarthritis of knees, bilateral: Code(s): M17.0 - Bilateral primary osteoarthritis of knee Category: Medical Plan I injected the left knee today, he can see me back no sooner than 3 months for repeat injection Coding Level of Care Code Est Pt Level 3 (50687) Diagnoses Primary osteoarthritis of knees, bilateral M17.0 CPT Codes Coding - Large joint: 24741 - Large joint ([id number])
== END 2023-07-12 09:12 | disposition home or self-care (01) ==
PROVIDERS: PCP Internal Medicine; Visit Provider Orthopaedic Surgery
DX: M17.0 Bilateral primary osteoarthritis of knee (principal)
CPT/HCPCS: 20610; 99213

== ENCOUNTER → 2023-07-12 08:31 | Outpatient (BNVA) | payer MEDICARE, MEDICAID, SELFPAY | PROVIDERS: PCP Internal Medicine; Visit Provider Orthopaedic Surgery | DX: I48.19 Other persistent atrial fibrillation (principal); I27.81 Cor pulmonale (chronic); I45.2 Bifascicular block; I10 Essential (primary) hypertension; G47.33 Obstructive sleep apnea (adult) (pediatric); M17.0 Bilateral primary osteoarthritis of knee; Z79.01 Long term (current) use of anticoagulants; Z99.89 Dependence on other enabling machines and devices; Z79.631 Long term (current) use of antimetabolite agent | CPT/HCPCS: 20610; 99212; J0665; J1100 ==

== ENCOUNTER 2023-07-12 09:52 | Outpatient (AMB) | payer MEDICARE, MEDICAID, SELFPAY ==
[2023-07-12 10:10] VITALS: BP 138/68; PULSE 78; O2SAT 97; BMI 33.7
--- NOTE | 2023-07-12 10:10 | A.OFFVIS_ITS ---
Vital Signs 07/12/23 10:10 Height 6 ft 2 in Weight 262 lb 5.601 oz BMI 33.7 BP 138/68 Blood Pressure Location Lt brachial Position Sitting Pulse 78 Pulse Source Pulse Oximeter Pulse Oximetry (%) 97 Oxygen Delivery Method Room Air Intake Visit Reasons: 6 month follow-up Allergies Penicillins [PCN] Allergy (Unknown, Verified 07/12/23 08:41) UNKNOWN- RXN CHILD/? HIVES Medication List - Last Reconciled 07/12/23 by Perez Navas MD acetaminophen 650 mg PO Q6H PRN albuterol sulfate 90 mcg/actuation 2 puffs inhalation Q4-6H PRN 3 months ascorbic acid (vitamin C) 1,000 mg PO DAILY bumetanide 2 mg PO BID 90 days cholecalciferol (vitamin D3) 25 mcg PO DAILY compr.stocking,knee,long,large As directed 20-30 mm HG [CPAP As directed] diltiazem HCl CD 180 mg PO DAILY folic acid 1 mg PO DAILY 90 days hydroxychloroquine 200 mg PO BID ipratropium-albuterol 0.5 mg-3 mg(2.5 mg base)/3 mL 3 mL inhalation Q4-6H PRN 30 days lisinopril 5 mg PO DAILY mecobalamin (vitamin B12) 1,000 mcg PO DAILY omeprazole 20 mg PO DAILY oxycodone mg PO pravastatin 20 mg PO DAILY pregabalin (Lyrica) Take 1 tab twice daily. Can make you dizzy/groggy. Do not drive or operate heavy machinery if feeling as such. Trelegy Ellipta 200-62.5-25 mcg (eeqhuorioen-[id number]) 1 inh inhalation DAILY 90 days NS warfarin 5 mg See Protocol PO DAILY HPI Comments Details: Konrad returns for follow-up regarding atrial fibrillation. To recall, he underwent cardioversion in 2016. Was initially amiodarone which was later stopped. Then he reverted to atrial fibrillation at some point and has been maintained on rate control only. He states that he is feeling great. No complaints like angina or in fact anything cardiac sounding. Shortness of breath is about the baseline. He can maintain his activity level and lifestyle without any major concerns. 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 Mother Rheumatoid arteritis Sister Breast cancer Other Mental health disorder Substance use disorder Social History Household Members: Significant Other Housing: Apartment Do you presently have visiting nurse or other home services: No Alcohol intake: former Patient Tobacco Use Status: Former Tobacco user Quit Date: 2015 Tobacco use type: Cigarette Years Smoked: 49 e-Cigarette/Vaping Use: Never Used Second Hand Smoke Exposure: No Substance Use Type: Marijuana service: No Current occupational status: retired Cognitive needs: No Hearing needs: No Vision needs: Yes Review of Systems Const Denies weakness ENT Denies dizziness Card Denies chest pain, Denies chest pain with activity, Denies syncope, Denies rapid heart rate, Denies pedal edema, Denies edema, Denies leg edema, Denies lightheadedness, Denies palpitations, Denies dyspnea, Denies dyspnea on exertion and Denies orthopnea Resp Denies cough, Denies dyspnea and Denies dyspnea on exertion GI Denies hematochezia and Denies change in stool character Musc Denies abnormal gait, Denies muscle cramps, Denies muscle weakness, Denies numbness, Denies radiating pain into limb and Denies tingling Neuro Denies abnormal gait, Denies dizziness, Denies syncope, Denies numbness, Denies tingling and Denies weakness Endo Denies palpitations Physical Exam Vital Signs: Last Vital Signs Pulse 78 07/12/23 10:10 BP 138/68 05/13/24 10:10 Pulse Ox 97 07/12/23 10:10 Oxygen Delivery Method Room Air 07/12/23 10:10 BMI result Body Mass Index 33.7 Const General: comfortable and no acute distress Orientation/consciousness: patient oriented x3 HEENT Other: Unremarkable Head: Yes normal to inspection Neck Neck: Yes normal visual inspection Chest Chest palpation & inspection: normal inspection of the chest Resp Auscultation: clear to auscultation bilaterally Cardio Palpation: normal PMI Heart sounds: S1 normal heart sound present, S2 normal heart sound present, no gallops, no murmurs and no rubs GI Palpation (GI): Soft to palpation Back/Spine/Pelvis Other: unremarkable Skin General skin exam: no rashes or lesions noted Neuro General: patient oriented x3 Extrem General: Yes normal to inspection Psych Mental Status: mental status grossly normal Assessment & Plan Assessment & Plan (1) Persistent atrial fibrillation: Code(s): I48.19 - Other persistent atrial fibrillation Category: Medical Plan: Stable. On diltiazem and warfarin. Continue. Last EKG from December 2022 with atrial fibrillation at 57/Min; right bundle- branch block and left anterior fascicular block pattern. (2) Severe obstructive sleep apnea: Comment: CPAP use Code(s): G47.33 - Obstructive sleep apnea (adult) (pediatric) Category: Medical Plan: Sleep study from 2019 reported as very severe obstructive sleep apnea. Continue CPAP. (3) Cor pulmonale (chronic): Code(s): I27.81 - Cor pulmonale (chronic) Category: Medical Plan: Stable on Bumex. (4) Hypertension: Code(s): I10 - Essential (primary) hypertension Category: Medical Qualifiers: Hypertension type: essential hypertension Qualified Code(s): I10 - Essential (primary) hypertension Plan: Stable. Continue lisinopril. Coding Level of Care Code Est Pt Level 4 (12595) Diagnoses Persistent atrial fibrillation I48.19 Severe obstructive sleep apnea G47.33 Cor pulmonale (chronic) I27.81 Essential hypertension I10 Hypertension type: essential hypertension
== END 2023-07-12 10:29 | disposition home or self-care (01) ==
PROVIDERS: PCP Internal Medicine; Visit Provider Internal Medicine
DX: I48.19 Other persistent atrial fibrillation (principal); G47.33 Obstructive sleep apnea (adult) (pediatric); I27.81 Cor pulmonale (chronic); I10 Essential (primary) hypertension
CPT/HCPCS: 99214

== ENCOUNTER 2023-07-13 08:00 | Outpatient (REF) | payer MEDICARE, MEDICAID, SELFPAY ==
[2023-07-13 10:42] LABS: MANUAL DIFF FLAG NO
[2023-07-13 10:51] LABS: Basophils Percent Auto 0.2 % (0-2); Hematocrit 43.6 % (42.0-52.0); Hemoglobin 14.7 g/dl (14.0-18.0); Imm Gran Abs Auto 0.07 X10*3/uL (0.00-0.03); Imm Gran Pct Auto 0.6 % (0.0-0.4); Lymphocytes Absolute Auto 1.3 X10*3/uL (1.2-4.9); Lymphocytes Percent Auto 10.5 % (20-40); Mean Corpuscular HGB Conc 33.7 g/dl (31.0-36.0); Mean Corpuscular Hemoglobin 33.7 pg (27.0-33.0); Mean Platelet Volume 9.7 fL (9.4-12.4); Monocytes Percent Auto 8.1 % (2-11); Neutrophils Absolute Auto 9.7 x10*3/uL (2.0-8.3); Neutrophils Percent Auto 80.6 % (45-73); Platelet Count 234 X10*3/uL (160-400); Red Blood Count 4.36 X10*6/uL (4.60-5.80); Red Cell Distribution Width 13.7 % (11.0-16.0)
[2023-07-13 11:26] LABS: Alanine Aminotransferase 25 U/L (0-40); Albumin Level 4.7 g/dL (3.5-5.0); Alkaline Phosphatase 62 U/L (39-117); Anion Gap 15 (12-20); Aspartate Amino Transferase 24 U/L (5-37); Bilirubin Total 0.4 mg/dL (0.0-1.0); Blood Urea Nitrogen 23 mg/dL (9-16); C Reactive Protein 1.51 mg/dL (< or = 0.50); Calcium 9.4 mg/dL (8.4-10.2); Carbon Dioxide 27 mmol/L (22-29); Chloride 103 mmol/L (96-108); Estimated Glomerular Filt Rate > 60; Glucose Random 109 mg/dL (60-115); Potassium 4.1 mmol/L (3.3-5.1); Sodium 141 mmol/L (135-145); Total Protein 7.6 g/dL (6.5-8.0)
[2023-07-13 11:39] LABS: Erythrocyte Sedimentation Rate 8 MM/HR (0-15)
== END 2023-07-13 08:01 | disposition home or self-care (01) ==
LOC: HO.HMGCLDS 08:00
PROVIDERS: PCP Internal Medicine; Visit Provider Student in an Organized Health Care Education/Training Program
DX: M06.00 Rheumatoid arthritis without rheumatoid factor, unspecified site (principal)
CPT/HCPCS: 36415; 80053; 85025; 85652; 86140

== ENCOUNTER → 2023-07-14 09:34 | Outpatient (BNVA) | payer MEDICARE, MEDICAID, SELFPAY | PROVIDERS: PCP Internal Medicine; Visit Provider Internal Medicine ==

== ENCOUNTER 2023-07-19 11:22 | Outpatient (AMB) | payer MEDICARE, MEDICAID, SELFPAY ==
--- NOTE | 2023-07-19 11:41 | A.OFFVIS_ITS ---
Vital Signs 07/19/23 11:42 Height 6 ft 2 in Weight 260 lb 12.909 oz BMI 33.5 BP 132/64 Blood Pressure Location Rt brachial Position Sitting Pulse 56 Pulse Source Pulse Oximeter Pulse Oximetry (%) 97 Oxygen Delivery Method Room Air Intake Visit Reasons: RA Intake Note: Patient last seen 04/29/23 presents today for follow up and test results. 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 HIVES Medication List - Last Reconciled 07/19/23 by Brea Mitchell MD acetaminophen 650 mg PO Q6H PRN albuterol sulfate 90 mcg/actuation 2 puffs inhalation Q4-6H PRN 3 months ascorbic acid (vitamin C) 1,000 mg PO DAILY bumetanide 2 mg PO BID 90 days cholecalciferol (vitamin D3) 25 mcg PO DAILY compr.stocking,knee,long,large As directed 20-30 mm HG [CPAP As directed] diltiazem HCl CD 180 mg PO DAILY folic acid 1 mg PO DAILY 90 days hydroxychloroquine 200 mg PO BID ipratropium-albuterol 0.5 mg-3 mg(2.5 mg base)/3 mL 3 mL inhalation Q4-6H PRN 30 days lisinopril 5 mg PO DAILY mecobalamin (vitamin B12) 1,000 mcg PO DAILY omeprazole 20 mg PO DAILY oxycodone mg PO pravastatin 20 mg PO DAILY pregabalin (Lyrica) Take 1 tab twice daily. Can make you dizzy/groggy. Do not drive or operate heavy machinery if feeling as such. Trelegy Ellipta 200-62.5-25 mcg (zoceuccuzpd-jfmqcoype-dlftgezf) 1 inh inhalation DAILY 90 days NS warfarin 5 mg See Protocol PO DAILY HPI Comments Details: 68yoM presents for follow-up of seronegative RA. Last seen 04/2023 On hydroxychloroquine 200 mg Twice daily. Well tolerated Patient states that he is doing reasonably well in terms of his arthritis. Gets some stiffness of his hands but no swelling or pain. Since his foot pressure he has done remarkably well. Has not had any wounds. He started Lyrica after last visit and states that it has worked remarkably well for his burning pain in his feet. He can sleep much better now. He denies any side effects related to it. 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 Mother Rheumatoid arteritis Sister Breast cancer Other Mental health disorder Substance use disorder Social History Household Members: Significant Other Housing: Apartment Do you presently have visiting nurse or other home services: No Alcohol intake: former Patient Tobacco Use Status: Former Tobacco user Quit Date: 2015 Tobacco use type: Cigarette Years Smoked: 49 e-Cigarette/Vaping Use: Never Used Second Hand Smoke Exposure: No Substance Use Type: Marijuana service: No Current occupational status: retired Cognitive needs: No Hearing needs: No Vision needs: Yes Review of Systems Musc Denies arthralgias, Denies joint swelling and Reports stiffness Physical Exam Vital Signs: Last Vital Signs Pulse 56 07/19/23 11:42 BP 132/64 07/19/23 11:42 Pulse Ox 97 07/19/23 11:42 Oxygen Delivery Method Room Air 07/19/23 11:42 BMI result Body Mass Index 33.5 Const General: cooperative, healthy appearing and comfortable Nutritional Appearance: obese Orientation/consciousness: patient oriented x3 Limitations: no limitations HEENT Head: Yes normocephalic and Yes atraumatic Resp Effort & Inspection: normal respiratory effort Neuro General: patient oriented x3 Extrem Other: Mild flexion contracture of few right hand fingers. No swollen or tender joints both hands, wrists, elbows Normal range of motion of elbows and shoulders without pain Negative MCP squeeze test bilaterally Flexion contracture of right 5th PIP (boutonniere) Normal range of motion of both wrists, elbows and shoulders with without pain No ankle tenderness today No MTP tenderness bilateral but patient has reduced sensation both feet Hammertoes left foot Results Reviewed Results Reviewed: Laboratory Tests 0 8 Date of Service: 05/08/22 Procedure(s): XR lumbar spine 2-3V Accession Number(s): [id number] EXAMINATION: XR LUMBOSACRAL SPINE CLINICAL INFORMATION: Low back pain COMPARISON: None TECHNIQUE: Three views of the lumbosacral spine. FINDINGS: Multilevel degenerative changes, most significant in the lower lumbar region. No evidence of spondylolisthesis. Vertebral body heights appear grossly maintained. Diffuse aortic atherosclerosis is present. Soft tissues are otherwise unremarkable. XR/XR lumbar spine 2-3V IMPRESSION: Multilevel degenerative changes of the spine. Date of Service: 07/13/22 Procedure(s): XR knee standing BI Accession Number(s): [id number] EXAMINATION: XR KNEE, LEFT XR KNEE AP STANDING CLINICAL INFORMATION: Pain.? COMPARISON: Radiographs dated 05/21/2022.? TECHNIQUE: Four views of the left knee. AP bilateral standing view of the knees was obtained. FINDINGS: Bony mineralization is normal. There is moderate narrowing of the bilateral medial joint space compartments, with peripheral osteophyte formation. The bilateral lateral joint space compartments are well-maintained. There is mild narrowing of the left patellofemoral compartment, with peripheral osteophyte formation. No fracture, dislocation or significant joint effusion is seen bilaterally. There is a slight bilateral varus configuration. There are left femoral, popliteal and infrapopliteal atherosclerotic calcifications. XR/XR knee standing BI IMPRESSION: ? 1. There is moderate osteoarthritic change of the medial joint space compartment of the left knee, and mild osteoarthritic changes seen of the left patellofemoral compartment. ? 2. There is moderate osteoarthritic change of the medial joint space compartment of the right knee. ? 3. There is a slight bilateral varus configuration. Assessment & Plan Assessment & Plan (1) Seronegative rheumatoid arthritis: Comment: Methotrexate- 2017- January 2022, discontinued due to right lower extremity cellulitis Humira 2019-January 2022, discontinued due to right lower extremity cellulitis Prednisone- off since October 2019 HCQ 10/21 effective Code(s): M06.00 - Rheumatoid arthritis without rheumatoid factor, unspecified site Category: Medical Plan: This is a 68-year-old male with seronegative RA or presents for follow-up. On hydroxychloroquine 200 mg Twice daily. Upon evaluation patient is fairly well overall there are no swollen or tender joints on exam but he complaining of mild stiffness, inflammatory markers mildly elevated. Likely there is some element of minimal RA disease activity. We discussed adding other DMARDs such as methotrexate. Patient is not interested as he is feeling quite well overall. 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 Lyrica 50 mg Twice daily quite effec tive. Continue the same Plan I spent 27 minutes reviewing patient's chart, evaluating patient, ordering diagnostic workup, counseling patient and documenting in the chart Orders: Orders Complete Blood Count Auto Diff 6 Months M06.00 - Rheumatoid arthritis without rheumatoid factor, unspecified site Comprehensive Met. Panel 6 Months M06.00 - Rheumatoid arthritis without rheumatoid factor, unspecified site C Reactive Protein 6 Months M06.00 - Rheumatoid arthritis without rheumatoid factor, unspecified site Erythrocyte Sedimentation Rate 6 Months M06.00 - Rheumatoid arthritis without rheumatoid factor, unspecified site Medications: Refilled hydroxychloroquine 200 mg PO BID 180 tabs 1RF pregabalin (Lyrica) Take 1 tab twice daily. Can make you dizzy/groggy. Do not drive or operate heavy machinery if feeling as such. 180 caps 1RF Coding Level of Care Code Est Pt Level 4 (47218) Diagnoses Seronegative rheumatoid arthritis M06.00 Long-term use of hydroxychloroquine Z79.899 Polyneuropathy associated with underlying disease G63 Peripheral neuropathy type: polyneuropathy associated with underlying disease
[2023-07-19 11:42] VITALS: BP 132/64; PULSE 56; O2SAT 97; BMI 33.5
== END 2023-07-19 12:03 | disposition home or self-care (01) ==
PROVIDERS: PCP Internal Medicine; Visit Provider Student in an Organized Health Care Education/Training Program
DX: M06.00 Rheumatoid arthritis without rheumatoid factor, unspecified site (principal); Z79.899 Other long term (current) drug therapy; G63 Polyneuropathy in diseases classified elsewhere
CPT/HCPCS: 99214

== ENCOUNTER → 2023-07-19 11:22 | Outpatient (BNVA) | payer MEDICARE, MEDICAID, SELFPAY | PROVIDERS: PCP Internal Medicine; Visit Provider Student in an Organized Health Care Education/Training Program | DX: M06.00 Rheumatoid arthritis without rheumatoid factor, unspecified site (principal); G63 Polyneuropathy in diseases classified elsewhere; Z79.899 Other long term (current) drug therapy | CPT/HCPCS: 99212 ==

== ENCOUNTER 2023-07-20 10:31 | Outpatient (AMB) | payer MEDICARE, MEDICAID, SELFPAY ==
[2023-07-20 10:39] VITALS: BP 132/62; PULSE 81; O2SAT 98; BMI 33.9
--- NOTE | 2023-07-20 10:39 | MHC.PC.OV ---
Vital Signs 07/20/23 10:39 Height 6 ft 2 in Weight 264 lb BMI 33.9 BP 132/62 Blood Pressure Location Lt brachial Position Sitting Pulse 81 Pulse Source Pulse Oximeter Pulse Oximetry (%) 98 Oxygen Delivery Method Room Air Intake Visit Reasons: A fib, PVD Allergies Penicillins [PCN] Allergy (Unknown, Verified 07/20/23 10:39) UNKNOWN- RXN CHILD/? HIVES Tobacco use date assessed: 03/22/23 Fall risk assessment: No Falls in past year Last assessed Fall Risk: 07/20/23 Dental Screening Dental Screen Date: 07/20/23 Did you have a dental visit in the last 12 months?: No Did you have a dental problem in the last 6 months where you did not have access to dental care?: No Was dental information given to patient?: No HPI A fib, PVD HPI Details 8-year-old obese male with atrial fibrillation rheumatoid arthritis COPD severe obstructive sleep apnea last seen in March 2023. Review of the notes follows up with Rheumatology seen in June 2023 on Lyrica, on hydroxychloroquine patient had some x-rays done on the knee showing moderate osteoarthritis left knee mild osteoarthritis left patellofemoral compartment moderate osteoarthritis right knee. Patient has also followed up with Cardiology June 2023 cor pulmonale on Bumex continuing with anticoagulation with Coumadin and diltiazem patient also had an recent injection from the Orthopedics for the knee. Pulmonary follow-up also in June for the COPD. Also noted April 2023 nerve conduction test having severe sensory and motor peripheral neuropathy axonal loss and demyelination bilateral PFSH Medical History Current use of anticoagulant therapy COVID-19 virus infection Post covid-19 condition, unspecified Hospital discharge follow-up Persistent atrial fibrillation On methotrexate therapy Cor pulmonale (chronic) Insomnia Hemothorax Vitamin D deficiency Right renal stone Peripheral vascular disease GERD (gastroesophageal reflux disease) Impaired glucose tolerance Hypercholesterolemia Hypertension Atrial fibrillation Severe obstructive sleep apnea 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 Mother Rheumatoid arteritis Sister Breast cancer Other Mental health disorder Substance use disorder Social History Household Members: Significant Other Housing: Apartment Do you presently have visiting nurse or other home services: No Alcohol intake: former Patient Tobacco Use Status: Former Tobacco user Quit Date: 2015 Tobacco use type: Cigarette Years Smoked: 49 e-Cigarette/Vaping Use: Never Used Second Hand Smoke Exposure: No Substance Use Type: Marijuana service: No Current occupational status: retired Cognitive needs: No Hearing needs: No Vision needs: Yes Questionnaire PHQ-9 Over the last 2 weeks, how often have you been bothered by any of the following problems? 1. Little interest or pleasure in doing things: several days 2. Feeling down, depressed, or hopeless: several days 3. Trouble falling or staying asleep, or sleeping too much: not at all 4. Feeling tired or having little energy: not at all 5. Poor appetite or overeating: not at all 6. Feeling bad about yourself - or that you are a failure or have let yourself or your family down: not at all 7. Trouble concentrating on things, such as reading the newspaper or watching television: not at all 8. Moving or speaking so slowly that other people could have noticed. Or the opposite - being so fidgety or restless that you have been moving around a lot more than usual: not at all 9. Thoughts that you would be better off or of hurting yourself in some way: not at all Total score: 2 Depression Screening Interpretation: Negative Depression Screening Done: Yes 19090 - PHQ-9 Billing: Yes Source: Developed by Drs. Zachary Epps, Aleta Stone, Chaparro Nation and colleagues, with an educational anastacio from [employer]. Thrive Questionnaire Date Thrive assessed: 03/22/23 AUDIT C Alcohol Use Questionnaire (AUDIT-C) 1. How often do you have a drink containing alcohol?: 2-3 times a week 2. How many drinks containing alcohol do you have on a typical day when you are drinking?: 3 or 4 3. How often do you have six or more drinks on one occasion?: Never Total Score: 4 MARELY-7 AMB Questionnaire MARELY-7 Date MARELY - 7 assessed: 03/22/23 Source: Developed by Drs. Zachary Epps, Aleta Stone, Chaparro Nation and colleagues, with an educational anastacio from [employer]. Physical exam (Primary Care) Vital Signs: Last Vital Signs Pulse 81 07/20/23 10:39 BP 132/62 07/20/23 10:39 Pulse Ox 98 07/20/23 10:39 Oxygen Delivery Method Room Air 07/20/23 10:39 BMI result Body Mass Index 33.9 Tobacco/Smoking Status: Tobacco use Status Tobacco use date assessed 03/22/23 07/20/23 10:40 Patient Tobacco Use Status Former Tobacco user 07/20/23 10:40 Tobacco use type Cigarette 07/20/23 10:40 e-Cigarette/Vaping Use Never Used 07/20/23 10:40 PHQ-9: PHQ-9 Score PHQ-9: Total score 2 07/20/23 10:48 Depression Screening Interpretation: Negative Thrive Assessment: Date of Thrive Assessment Date Thrive assessed 03/22/23 07/20/23 10:40 Const General: alert; No acute distress Eyes Conjunctivae: conjunctivae normal Resp Other: wheezing bilateral Cardio Other: irregular rate and rhythm GI Inspection: Yes normal to inspection Extrem General: Yes normal to inspection and No edema Assessment and Plan Assessment & Plan (1) COPD (chronic obstructive pulmonary disease): Code(s): J44.9 - Chronic obstructive pulmonary disease, unspecified Plan: Patient follows up with Pulmonary on Trelegy and albuterol (2) Primary osteoarthritis of knees, bilateral: Code(s): M17.0 - Bilateral primary osteoarthritis of knee Plan: Follows up with orthopedics and has had injections of both knees (3) Severe obstructive sleep apnea: Comment: CPAP use Code(s): G47.33 - Obstructive sleep apnea (adult) (pediatric) Plan: Continue to use the CPAP more than 4 hours a night and benefits from this (4) Hypercholesterolemia: Code(s): E78.00 - Pure hypercholesterolemia, unspecified Plan: Avoid fried foods, chicken skin, eggs, butter margarine, pastries and meat. Be it pork or beef they have a lot of cholesterol on pravastatin 20 mg once a day LDL goal of less than 130 and triglyceride of less than 150 (5) Impaired glucose tolerance: Code(s): R73.02 - Impaired glucose tolerance (oral) Plan: Decrease the amount of carbohydrate intake, pasta, bread, rice and potatoes are all sugar and that is aside from all the sweet stuff, remember that fruits are good but they are Sweet also. (6) Cor pulmonale (chronic): Code(s): I27.81 - Cor pulmonale (chronic) Plan: Continue with diuretics (7) Seronegative rheumatoid arthritis: Comment: Methotrexate- 2017- January 2022, discontinued due to right lower extremity cellulitis Humira 2019-January 2022, discontinued due to right lower extremity cellulitis Prednisone- off since October 2019 HCQ 10/21 effective Code(s): M06.00 - Rheumatoid arthritis without rheumatoid factor, unspecified site Plan: Patient follows up with ortho and is on hydroxychloroquine (8) Persistent atrial fibrillation: Code(s): I48.19 - Other persistent atrial fibrillation Plan: Continue with anticoagulation with Coumadin (9) Peripheral neuropathy: Comment: Lyrica 04/2023 effective Code(s): G62.9 - Polyneuropathy, unspecified Qualifiers: Peripheral neuropathy type: polyneuropathy associated with underlying disease Qualified Code(s): G63 - Polyneuropathy in diseases classified elsewhere Plan: Lyrica prescribed Coding Level of Care Code Est Pt Level 4 (80195) Diagnoses COPD (chronic obstructive pulmonary disease) J44.9 Primary osteoarthritis of knees, bilateral M17.0 Severe obstructive sleep apnea G47.33 Hypercholesterolemia E78.00 Impaired glucose tolerance R73.02 Cor pulmonale (chronic) I27.81 Seronegative rheumatoid arthritis M06.00 Persistent atrial fibrillation I48.19 Polyneuropathy associated with underlying disease G63 Peripheral neuropathy type: polyneuropathy associated with underlying disease
== END 2023-07-20 11:43 | disposition home or self-care (01) ==
PROVIDERS: PCP Internal Medicine; Visit Provider Internal Medicine
DX: J44.9 Chronic obstructive pulmonary disease, unspecified (principal); I27.81 Cor pulmonale (chronic); M06.00 Rheumatoid arthritis without rheumatoid factor, unspecified site; I48.19 Other persistent atrial fibrillation; G63 Polyneuropathy in diseases classified elsewhere; M17.0 Bilateral primary osteoarthritis of knee; G47.33 Obstructive sleep apnea (adult) (pediatric); E78.00 Pure hypercholesterolemia, unspecified; R73.02 Impaired glucose tolerance (oral)
CPT/HCPCS: 99214

== ENCOUNTER → 2023-07-21 10:28 | Outpatient (BNVA) | payer MEDICARE, MEDICAID, SELFPAY | PROVIDERS: PCP Internal Medicine; Visit Provider Internal Medicine ==

== ENCOUNTER → 2023-07-28 10:42 | Outpatient (BNVA) | payer MEDICARE, MEDICAID, SELFPAY | PROVIDERS: PCP Internal Medicine; Visit Provider Internal Medicine ==

== ENCOUNTER → 2023-08-04 09:36 | Outpatient (BNVA) | payer MEDICARE, MEDICAID, SELFPAY | PROVIDERS: PCP Internal Medicine; Visit Provider Internal Medicine ==

== ENCOUNTER → 2023-08-11 11:13 | Outpatient (BNVA) | payer MEDICARE, MEDICAID, SELFPAY | PROVIDERS: PCP Internal Medicine; Visit Provider Internal Medicine ==

== ENCOUNTER → 2023-08-18 11:35 | Outpatient (BNVA) | payer MEDICARE, MEDICAID, SELFPAY | PROVIDERS: PCP Internal Medicine; Visit Provider Internal Medicine ==

== ENCOUNTER → 2023-08-25 08:32 | Outpatient (BNVA) | payer MEDICARE, MEDICAID, SELFPAY | PROVIDERS: PCP Internal Medicine; Visit Provider Internal Medicine ==

== ENCOUNTER → 2023-09-01 11:43 | Outpatient (BNVA) | payer MEDICARE, MEDICAID, SELFPAY | PROVIDERS: PCP Internal Medicine; Visit Provider Internal Medicine ==

== ENCOUNTER → 2023-09-08 11:49 | Outpatient (BNVA) | payer MEDICARE, MEDICAID, SELFPAY | PROVIDERS: PCP Internal Medicine; Visit Provider Internal Medicine ==

== ENCOUNTER → 2023-09-15 14:12 | Outpatient (BNVA) | payer MEDICARE, MEDICAID, SELFPAY | PROVIDERS: PCP Internal Medicine; Visit Provider Internal Medicine ==

== ENCOUNTER → 2023-09-22 08:55 | Outpatient (BNVA) | payer MEDICARE, MEDICAID, SELFPAY | PROVIDERS: PCP Internal Medicine; Visit Provider Internal Medicine ==

== ENCOUNTER → 2023-09-29 10:27 | Outpatient (BNVA) | payer MEDICARE, MEDICAID, SELFPAY | PROVIDERS: PCP Internal Medicine; Visit Provider Internal Medicine ==

== ENCOUNTER → 2023-10-01 12:38 | Outpatient (BNVA) | payer MEDICARE, MEDICAID, SELFPAY | PROVIDERS: PCP Internal Medicine; Visit Provider Internal Medicine ==

== ENCOUNTER → 2023-10-06 10:05 | Outpatient (BNVA) | payer MEDICARE, MEDICAID, SELFPAY | PROVIDERS: PCP Internal Medicine; Visit Provider Internal Medicine ==

== ENCOUNTER 2023-10-13 08:57 | Outpatient (AMB) | payer MEDICARE, MEDICAID, SELFPAY ==
[2023-10-13 09:10] LABS: Prothrombin Time Whole Bld POC 38.5 sec (11.1-13.5); ~PT, ~INR - Anti Coag Clinic 3.2 (0.9-1.1)
--- NOTE | 2023-10-13 09:31 | MHC.OFFVISCO ---
Intake Intake Visit Reasons: Anticoagulation Allergies Penicillins [PCN] Allergy (Unknown, Verified 10/06/23 10:41) UNKNOWN- RXN CHILD/? HIVES Medication List - Last Reconciled 10/13/23 by Rekha Moreno RN acetaminophen 650 mg PO Q6H PRN albuterol sulfate 90 mcg/actuation 2 puffs inhalation Q4-6H PRN 3 months ascorbic acid (vitamin C) 1,000 mg PO DAILY bumetanide 2 mg PO BID 90 days cholecalciferol (vitamin D3) 25 mcg PO DAILY compr.stocking,knee,long,large As directed 20-30 mm HG [CPAP As directed] diltiazem HCl CD 180 mg PO DAILY folic acid 1 mg PO DAILY 90 days hydroxychloroquine 200 mg PO BID ipratropium-albuterol 0.5 mg-3 mg(2.5 mg base)/3 mL 3 mL inhalation Q4-6H PRN 30 days lisinopril 5 mg PO DAILY mecobalamin (vitamin B12) 1,000 mcg PO DAILY mupirocin 2% 1 appl topical BID-TID omeprazole 20 mg PO DAILY pravastatin 20 mg PO DAILY pregabalin (Lyrica) Take 1 tab twice daily. Can make you dizzy/groggy. Do not drive or operate heavy machinery if feeling as such. Trelegy Ellipta 200-62.5-25 mcg (eywfndvjaus-ncamokibg-nszihybt) 1 inh inhalation DAILY 90 days NS warfarin 5 mg See Protocol PO DAILY Nursing Note Pt to ACS for meter to meter check. Pt demonstrated good technique with meter. Pt POC: 3.1 in therapeutic range of 2-3 ACS POC: 3.2 Medications and supplements reviewed No changes in health, diet, medications, or supplements, Has bled, Chads Vasc and Jaci scoring done. Denies any signs and symptoms of bleeding or bruising or clotting. Bleeding, bruising, clotting discussed Nutritional guidance given to balance reds and greens Food list given to pt. Dose: 5mg daily F/U INR: 1 week at home, self test Patient verbalizes understanding of instructions given Anti-Coag Initial Assessment Social Hx Patient Tobacco Use Status: Former Tobacco user Tobacco use type: Cigarette alcohol intake: former Alcohol intake frequency: does not drink Questionnaires HAS-BLED Does the patient had uncontrolled Hypertension?: No Does the patient have renal disease?: No Does the patient have liver disease?: No Does the patient have a history of stroke?: No Has the patient had major bleeding or predisposition to bleeding?: No Does the patient have labile INRs?: No Is the patient over 65 years of age?: Yes Is the patient on medications that gives them a predisposition to bleeding?: Yes Does the patient use alcohol?: Yes HAS-BLED Score: 3 CHADSVASC Age: 66-74 Gender: Male Does the patient have a history of CHF?: No Does the patient have a history of Hypertension?: Yes Does the patient have a history of Stroke/TIA/Thromboembolism?: No Does the patient have a history of Vascular Disease (prior ID, PAD or aortic plaque)?: Yes Does the patient have a history of Diabetes?: No CHADS VACS Score: 3 Jaci Prediction Score Rsk VTE Active Cancer: No Previous VTE, excluding superficial vein thrombosis: Yes Reduced mobility: No Already known Thrombophilic Condition: Yes With-in last month Trauma and/or Surgery: No Elderly 70 year or older: No Heart and/or Respiratory Failure: Yes Acute Myocardial infarction and/or Ischemic Stroke: No Acute Infection and/or Rheumatologic Disorder: Yes Obesity (BMI 30 or greater): Yes Ongoing Hormonal Treatment: No Score: 9 Jaci Score less than 4; Low Risk of VTE Jaci Score 4 or greater; High Risk of VTE Coding Level of Care Code Est Patient Level 2 Diagnoses Current use of anticoagulant therapy Z79.01 Results AMB INR Fingerstick AMB INR Fingerstick 3.1 Last Edit by Rekha Moreno RN on 10/13/23 09:22 pt self test 3.1, meter to meter Assessment & Plan Assessment & Plan (1) Current use of anticoagulant therapy: Code(s): 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
== END 2023-10-13 10:34 | disposition home or self-care (01) ==
LOC: HO.ACS 08:57
PROVIDERS: PCP Internal Medicine; Visit Provider Internal Medicine
DX: Z79.01 Long term (current) use of anticoagulants (principal)

== ENCOUNTER → 2023-10-13 08:57 | Outpatient (BNVA) | payer MEDICARE, MEDICAID, SELFPAY | PROVIDERS: PCP Internal Medicine; Visit Provider Internal Medicine | DX: I48.19 Other persistent atrial fibrillation (principal); Z51.81 Encounter for therapeutic drug level monitoring; Z79.01 Long term (current) use of anticoagulants | CPT/HCPCS: 85610; 99212 ==

== ENCOUNTER → 2023-10-20 08:43 | Outpatient (BNVA) | payer MEDICARE, SELFPAY | PROVIDERS: PCP Internal Medicine; Visit Provider Internal Medicine ==

== ENCOUNTER 2023-10-25 10:40 | Outpatient (AMB) | payer MEDICARE, SELFPAY ==
--- NOTE | 2023-10-25 10:45 | MHC.OFFVIS ---
Vital Signs 10/25/23 10:47 Height 6 ft 2 in Weight 259 lb 2 oz BMI 33.3 BP 146/72 H Blood Pressure Location Rt brachial Position Sitting Respiration 16 Pulse 73 Pulse Source Pulse Oximeter Pulse Oximetry (%) 97 Oxygen Delivery Method Room Air Intake Visit Reasons: INP: Polyneuropathy in diseases - LVM w/ add Intake Note: Pt presents to the office for new pt evaluation for polyneuropathy. Master Of Ceremonies Required: No Allergies Penicillins [PCN] Allergy (Unknown, Verified 10/25/23 10:46) UNKNOWN- RXN CHILD/? HIVES Medication List - Last Reconciled 10/25/23 by Izzy Kimbrough MD acetaminophen 650 mg PO Q6H PRN albuterol sulfate 90 mcg/actuation 2 puffs inhalation Q4-6H PRN 3 months ascorbic acid (vitamin C) 1,000 mg PO DAILY bumetanide 2 mg PO BID 90 days cholecalciferol (vitamin D3) 25 mcg PO DAILY compr.stocking,knee,long,large As directed 20-30 mm HG [CPAP As directed] diltiazem HCl CD 180 mg PO DAILY folic acid 1 mg PO DAILY 90 days hydroxychloroquine 200 mg PO BID ipratropium-albuterol 0.5 mg-3 mg(2.5 mg base)/3 mL 3 mL inhalation Q4-6H PRN 30 days lisinopril 5 mg PO DAILY mecobalamin (vitamin B12) 1,000 mcg PO DAILY mupirocin 2% 1 appl topical BID-TID omeprazole 20 mg PO DAILY pravastatin 20 mg PO DAILY pregabalin (Lyrica) Take 1 tab twice daily. Can make you dizzy/groggy. Do not drive or operate heavy machinery if feeling as such. Trelegy Ellipta 200-62.5-25 mcg (mtskxeuvvxk-oeynyawel-ylkbifkn) 1 inh inhalation DAILY 90 days NS warfarin 5 mg See Protocol PO DAILY HPI Comments Details: 68y/o male with seronegative rheumatoid arthritis comes for evaluation of peripheral neuropathy. He was diagnosed with neuropathy in 2017 . He was treated with gabapentin initially and now he is on pregabalin. He also uses inserts which helps. His main symptoms are pain in his right foot > left foot when he takes his shoes off and at rest. The pain is worse with rest and later part of the day. he describes are intense sharp pain in the plantar surfaces, when he applies cream it helps. when he puts his shoes on and walks he feels better. It is worse when there is no pressure on his feet. He has neck pain and has some tingling He denies urinary incontinence.No urgency . [facility] Medical History (Updated 10/25/23 @ 13:22 by Izzy Kimbrough MD) Restless legs syndrome (RLS) Neuropathy Current use of anticoagulant therapy COVID-19 virus infection Post covid-19 condition, unspecified Hospital discharge follow-up Persistent atrial fibrillation On methotrexate therapy Cor pulmonale (chronic) Insomnia Hemothorax Vitamin D deficiency Right renal stone Peripheral vascular disease GERD (gastroesophageal reflux disease) Impaired glucose tolerance Hypercholesterolemia Hypertension Atrial fibrillation Severe obstructive sleep apnea Primary osteoarthritis of knees, bilateral 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 Mother Rheumatoid arteritis Sister Breast cancer Other Mental health disorder Substance use disorder Social History Household Members: Significant Other Housing: Apartment Do you presently have visiting nurse or other home services: No Alcohol intake: former Patient Tobacco Use Status: Former Tobacco user Tobacco use type: Cigarette Years Smoked: 49 e-Cigarette/Vaping Use: Never Used Second Hand Smoke Exposure: No Substance Use Type: Marijuana service: No Current occupational status: retired Cognitive needs: No Hearing needs: No Vision needs: Yes Physical Exam Vital Signs: Last Vital Signs Pulse 73 10/25/23 10:47 Resp 16 10/25/23 10:47 BP 146/72 H 10/25/23 10:47 Pulse Ox 97 10/25/23 10:47 Oxygen Delivery Method Room Air 10/25/23 10:47 BMI result Body Mass Index 33.3 Const General: cooperative, comfortable and no acute distress Nutritional Appearance: overweight Orientation/consciousness: patient oriented x3 Eyes Pupils: Equal, round and reactive pupils present Neuro Other: Right LE- discoloration of the skin, multiple callus and hammer toes General: patient oriented x3, tone normal and moves all extremities Cranial nerves: Yes Facial sensation intact/muscles of mastication intact, Yes Equal, round and reactive pupils present, Yes Bilaterally intact EOM present, Yes Nystagmus not present, Yes Normal facial strength present and Yes Midline tongue present Cognition (Neuro): normal cognition Speech: Anomia present Motor exam (neuro): 5/5 motor strength present throughout and Normal motor muscle tone present throughout Deep tendon reflexes (DTR's): Right triceps reflex intensity grade: 1+, Left triceps reflex intensity grade: 1+, Rt Biceps (C5, C6): 1+, Left biceps reflex intensity grade: 1+, Right brachioradialis reflex intensity grade: 1+, Left brachioradialis reflex intensity grade: 1+, Right patellar reflex intensity grade: 1+ and Left patellar reflex intensity grade: 1+ Coordination: jfmrmv-[id number] test normal Assessment & Plan Assessment & Plan (1) Neuropathy: Comment: related to his rheumatoid Code(s): G62.9 - Polyneuropathy, unspecified Category: Medical (2) Restless legs syndrome (RLS): Comment: secondary to arthritis and neuropathy Code(s): G25.81 - Restless legs syndrome Category: Medical Plan Reviewed his notes from Dr. Mitchell i suggested to increase lyrica to 50mg qam and 100mg qhs Will consider dopamine agonists if he does not respond. F/u with podiatry Medications: Changed From pregabalin (Lyrica) Take 1 tab twice daily. Can make you dizzy/groggy. Do not drive or operate heavy machinery if feeling as such. 180 caps 1RF To pregabalin (Lyrica) Take 1 tab qam and 2 tabs qhs Can make you dizzy/groggy. Do not drive or operate heavy machinery if feeling as such. 180 caps 1RF Coding Level of Care Code New Pt Level 4 (66947) Diagnoses Neuropathy G62.9 Restless legs syndrome (RLS) G25.81
[2023-10-25 10:47] VITALS: BP 146/72; PULSE 73; RESP 16; O2SAT 97; BMI 33.3
== END 2023-10-25 11:23 | disposition home or self-care (01) ==
PROVIDERS: PCP Internal Medicine; Visit Provider Psychiatry & Neurology Neurology
DX: G62.9 Polyneuropathy, unspecified (principal); G25.81 Restless legs syndrome
CPT/HCPCS: 99204

== ENCOUNTER → 2023-10-25 10:40 | Outpatient (BNVA) | payer MEDICARE, SELFPAY | PROVIDERS: PCP Internal Medicine; Visit Provider Psychiatry & Neurology Neurology | DX: G62.9 Polyneuropathy, unspecified (principal); G25.81 Restless legs syndrome | CPT/HCPCS: 99202 ==

== ENCOUNTER → 2023-10-27 10:23 | Outpatient (BNVA) | payer MEDICARE, SELFPAY | PROVIDERS: PCP Internal Medicine; Visit Provider Internal Medicine ==

== ENCOUNTER → 2023-11-03 11:19 | Outpatient (BNVA) | payer MEDICARE, SELFPAY | PROVIDERS: PCP Internal Medicine; Visit Provider Internal Medicine ==

== ENCOUNTER → 2023-11-10 08:49 | Outpatient (BNVA) | payer MEDICARE, SELFPAY | PROVIDERS: PCP Internal Medicine; Visit Provider Internal Medicine ==

== ENCOUNTER → 2023-11-17 09:10 | Outpatient (BNVA) | payer MEDICARE, SELFPAY | PROVIDERS: PCP Internal Medicine; Visit Provider Internal Medicine ==

== ENCOUNTER → 2023-11-24 08:42 | Outpatient (BNVA) | payer MEDICARE, SELFPAY | PROVIDERS: PCP Internal Medicine; Visit Provider Internal Medicine ==

== ENCOUNTER → 2023-12-01 09:41 | Outpatient (BNVA) | payer MEDICARE, SELFPAY | PROVIDERS: PCP Internal Medicine; Visit Provider Internal Medicine ==

== ENCOUNTER → 2023-12-08 10:12 | Outpatient (BNVA) | payer MEDICARE, SELFPAY | PROVIDERS: PCP Internal Medicine; Visit Provider Internal Medicine ==

== ENCOUNTER → 2023-12-15 09:01 | Outpatient (BNVA) | payer MEDICARE, SELFPAY | PROVIDERS: PCP Internal Medicine; Visit Provider Internal Medicine ==

== ENCOUNTER → 2023-12-22 09:05 | Outpatient (BNVA) | payer MEDICARE, SELFPAY | PROVIDERS: PCP Internal Medicine; Visit Provider Internal Medicine ==

== ENCOUNTER → 2023-12-29 10:49 | Outpatient (BNVA) | payer MEDICARE, SELFPAY | PROVIDERS: PCP Internal Medicine; Visit Provider Internal Medicine ==

== ENCOUNTER 2024-01-03 10:08 | Outpatient (AMB) | payer MEDICARE, SELFPAY ==
[2024-01-03 10:10] VITALS: BP 138/67; PULSE 59; O2SAT 97; BMI 35.3
--- NOTE | 2024-01-03 10:10 | A.OFFVIS_ITS ---
Vital Signs 01/03/24 10:10 Height 6 ft 2 in Weight 275 lb BMI 35.3 BP 138/67 Blood Pressure Location Rt brachial Position Sitting Pulse 59 Pulse Source Doppler Pulse Oximetry (%) 97 Oxygen Delivery Method Room Air Intake Visit Reasons: COPD Allergies Penicillins [PCN] Allergy (Unknown, Verified 12/29/23 13:57) UNKNOWN- RXN CHILD/? HIVES HPI HPI COPD: Details: 68-year-old gentleman, former 40+ pack-year smoker, quit 2017 with underlying history of AFib on anticoagulation, heart failure, long-term methotrexate use, COPD, prior admission for COVID-19 discharged on supplemental oxygen at 6 L with exertion and 2 L at night, no longer on oxygen, followed for moderate COPD, severe obstructive sleep apnea, pulmonary nodules, and dyspnea on exertion. He has been using Trelegy and twice a day bumetanide 2 mg with reasonable control of his symptoms. Patient continues on CPAP with good control of his underlying symptoms. He denies recent exacerbations. [facility] Medical History (Updated 10/25/23 @ 13:22 by Izzy Kimbrough MD) Restless legs syndrome (RLS) Neuropathy Current use of anticoagulant therapy COVID-19 virus infection Post covid-19 condition, unspecified Hospital discharge follow-up Persistent atrial fibrillation On methotrexate therapy Cor pulmonale (chronic) Insomnia Hemothorax Vitamin D deficiency Right renal stone Peripheral vascular disease GERD (gastroesophageal reflux disease) Impaired glucose tolerance Hypercholesterolemia Hypertension Atrial fibrillation Severe obstructive sleep apnea Primary osteoarthritis of knees, bilateral 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 Mother Rheumatoid arteritis Sister Breast cancer Other Mental health disorder Substance use disorder Social History Household Members: Significant Other Housing: Apartment Do you presently have visiting nurse or other home services: No Alcohol intake: former Patient Tobacco Use Status: Former Tobacco user Tobacco use type: Cigarette Years Smoked: 49 e-Cigarette/Vaping Use: Never Used Second Hand Smoke Exposure: No Substance Use Type: Marijuana service: No Current occupational status: retired Cognitive needs: No Hearing needs: No Vision needs: Yes Review of Systems Const Denies daytime sleepiness, Denies excessive sweating, Denies fatigue, Denies fever(s), Denies lethargy, Denies malaise, Denies night sweats, Denies snoring and Denies weight loss Eyes Denies blurry vision and Denies itchy eyes ENT Denies nasal congestion, Denies post nasal drip, Denies sinus pain, Denies sinus pressure and Denies other ( Thrush) Card Denies chest pain, Reports pedal edema, Denies dyspnea, Denies orthopnea and Denies paroxysmal nocturnal dyspnea Resp Denies cough, Denies hemoptysis, Denies excessive phlegm production, Denies dyspnea, Denies snoring and Denies wheezing GI Denies abdominal pain and Denies heartburn Musc Denies myalgias, Denies arthralgias and Denies joint swelling Skin/Breast Denies rash Neuro Denies memory loss and Denies seizure-like activity Psych Denies abnormal sleep pattern, Denies anxiety and Denies memory loss Endo Denies excessive sweating, Denies fatigue and Denies heat intolerance Augie/Lymph Denies easy bruising Aller/Immun Denies itchy eyes, Denies seasonal rhinorrhea and Denies wheezing Physical Exam Vital Signs: Last Vital Signs Pulse 59 01/03/24 10:10 BP 138/67 01/03/24 10:10 Pulse Ox 97 01/03/24 10:10 Oxygen Delivery Method Room Air 01/03/24 10:10 BMI result Body Mass Index 35.3 Const General: no acute distress and alert Nutritional Appearance: obese Orientation/consciousness: Other orientation findings ( oriented) HEENT Head: Yes atraumatic Eyes General: appearance normal, both eyes and all related structures Sclerae: sclerae normal EOM: EOMs intact bilaterally Neck Neck: Yes supple Lymphatic: no lymphadenopathy noted Resp Effort & Inspection: normal respiratory effort and no use of accessory muscles Auscultation: clear to auscultation bilaterally Cardio Rate: regular rate Rhythm: regular rhythm Heart sounds: no gallops, no murmurs and no rubs Skin General skin exam: other ( warm) Extrem General: No clubbing, No cyanosis and Yes edema (2+ bilateral) Assessment & Plan Assessment & Plan (1) COPD (chronic obstructive pulmonary disease): Code(s): J44.9 - Chronic obstructive pulmonary disease, unspecified Category: Medical Plan: Well controlled on current regimen Trelegy, duo nebs, and albuterol MDI. Continue current regimen. (2) Right upper lobe pulmonary nodule: Comment: November 2022 CT scan Code(s): R91.1 - Solitary pulmonary nodule Category: Medical Plan: Follow-up CT chest is ordered. (3) Severe obstructive sleep apnea: Comment: CPAP use Code(s): G47.33 - Obstructive sleep apnea (adult) (pediatric) Category: Medical Plan: Well controlled on current CPAP therapy. Continue CPAP therapy. (4) Lower extremity edema: Code(s): R60.0 - Localized edema Category: Medical Plan: Slowly worsening lower extremity edema despite high-dose diuretic regimen with Bumex 2 mg twice a day. Continue current regimen. Will check BMP. Will refer to Nephrology. Orders: Orders Basic Metabolic Panel Today R60.0 - Localized edema Referrals Nephrology Referral R60.0 - Localized edema Coding Level of Care Code Est Pt Level 4 (63827) Complex EM visit Add On G2211 Diagnoses COPD (chronic obstructive pulmonary disease) J44.9 Right upper lobe pulmonary nodule R91.1 Severe obstructive sleep apnea G47.33 Lower extremity edema R60.0
== END 2024-01-03 10:40 | disposition home or self-care (01) ==
LOC: HO.HPS 10:09
PROVIDERS: PCP Internal Medicine; Visit Provider Internal Medicine Pulmonary Disease
DX: J44.9 Chronic obstructive pulmonary disease, unspecified (principal); R91.1 Solitary pulmonary nodule; G47.33 Obstructive sleep apnea (adult) (pediatric); R60.0 Localized edema
CPT/HCPCS: 99214; G2211

== ENCOUNTER 2024-01-03 10:08 | Outpatient (REF) | payer MEDICARE, SELFPAY ==
[2024-01-03 13:07] LABS: Anion Gap 12 (12-20); Blood Urea Nitrogen 15 mg/dL (9-16); Calcium 9.9 mg/dL (8.4-10.2); Carbon Dioxide 35 mmol/L (22-29); Chloride 100 mmol/L (96-108); Estimated Glomerular Filt Rate > 60; Glucose Random 101 mg/dL (60-115); Potassium 4.3 mmol/L (3.3-5.1); Sodium 143 mmol/L (135-145)
== END 2024-01-03 10:09 | disposition home or self-care (01) ==
LOC: HO.LAB 10:08
PROVIDERS: PCP Internal Medicine; Visit Provider Internal Medicine Pulmonary Disease
DX: J44.9 Chronic obstructive pulmonary disease, unspecified (principal); G47.33 Obstructive sleep apnea (adult) (pediatric); R91.1 Solitary pulmonary nodule; R60.0 Localized edema; Z23 Encounter for immunization; Z99.89 Dependence on other enabling machines and devices; Z87.891 Personal history of nicotine dependence
CPT/HCPCS: 36415; 80048; 90471; 90656; 99212

== ENCOUNTER → 2024-01-05 11:44 | Outpatient (BNVA) | payer MEDICARE, SELFPAY | PROVIDERS: PCP Internal Medicine; Visit Provider Internal Medicine ==

== ENCOUNTER → 2024-01-12 10:17 | Outpatient (BNVA) | payer MEDICARE, SELFPAY | PROVIDERS: PCP Internal Medicine; Visit Provider Internal Medicine ==

== ENCOUNTER 2024-01-14 13:44 | Outpatient (REF) | payer MEDICARE, SELFPAY ==
[2024-01-14 16:00] LABS: MANUAL DIFF FLAG NO
[2024-01-14 16:05] LABS: Basophils Percent Auto 0.5 % (0-2); Eosinophils Absolute Auto 0.2 X10*3/uL (0.0-0.4); Hematocrit 42.9 % (42.0-52.0); Hemoglobin 14.3 g/dl (14.0-18.0); Imm Gran Abs Auto 0.04 X10*3/uL (0.00-0.03); Imm Gran Pct Auto 0.5 % (0.0-0.4); Lymphocytes Absolute Auto 1.6 X10*3/uL (1.2-4.9); Lymphocytes Percent Auto 20.2 % (20-40); Mean Corpuscular HGB Conc 33.3 g/dl (31.0-36.0); Mean Corpuscular Hemoglobin 33.2 pg (27.0-33.0); Mean Corpuscular Volume 99.5 fL (80.0-98.0); Monocytes Absolute Auto 0.6 X10*3/uL (0.1-1.2); Monocytes Percent Auto 7.8 % (2-11); Neutrophils Absolute Auto 5.5 x10*3/uL (2.0-8.3); Platelet Count 189 X10*3/uL (160-400); Red Blood Count 4.31 X10*6/uL (4.60-5.80); Red Cell Distribution Width 14.2 % (11.0-16.0)
[2024-01-14 17:37] LABS: Alanine Aminotransferase 23 U/L (0-40); Albumin Level 4.4 g/dL (3.5-5.0); Alkaline Phosphatase 65 U/L (39-117); Anion Gap 11 (12-20); Aspartate Amino Transferase 26 U/L (5-37); Bilirubin Total 0.6 mg/dL (0.0-1.0); Blood Urea Nitrogen 21 mg/dL (9-16); C Reactive Protein 1.53 mg/dL (< or = 0.50); Calcium 9.6 mg/dL (8.4-10.2); Carbon Dioxide 32 mmol/L (22-29); Chloride 103 mmol/L (96-108); Estimated Glomerular Filt Rate > 60; Glucose Random 100 mg/dL (60-115); Potassium 4.1 mmol/L (3.3-5.1); Sodium 142 mmol/L (135-145); Total Protein 7.2 g/dL (6.5-8.0)
[2024-01-14 18:18] LABS: Erythrocyte Sedimentation Rate 7 MM/HR (0-15)
== END 2024-01-14 13:45 | disposition home or self-care (01) ==
LOC: HO.HMGCLDS 13:44
PROVIDERS: PCP Internal Medicine; Visit Provider Student in an Organized Health Care Education/Training Program
DX: M06.00 Rheumatoid arthritis without rheumatoid factor, unspecified site (principal)
CPT/HCPCS: 36415; 80053; 85025; 85652; 86140

== ENCOUNTER 2024-01-17 10:08 | Outpatient (AMB) | payer MEDICARE, SELFPAY ==
[2024-01-17 10:17] VITALS: BP 130/72; PULSE 60; BMI 34.5
--- NOTE | 2024-01-17 10:17 | MHC.OFFVIS ---
Vital Signs 01/17/24 10:17 Height 6 ft 2 in Weight 268 lb 15.423 oz BMI 34.5 BP 130/72 Blood Pressure Location Lt brachial Position Sitting Pulse 60 Pulse Source Monitor Intake Visit Reasons: 6m follow up Allergies Penicillins [PCN] Allergy (Unknown, Verified 01/12/24 11:09) UNKNOWN- RXN CHILD/? HIVES Medication List - Last Reconciled 01/17/24 by Perez Navas MD acetaminophen 650 mg PO Q6H PRN albuterol sulfate 90 mcg/actuation 2 puffs inhalation Q4-6H PRN 3 months ascorbic acid (vitamin C) 1,000 mg PO DAILY bumetanide 2 mg PO BID cholecalciferol (vitamin D3) 25 mcg PO DAILY compr.stocking,knee,long,large As directed 20-30 mm HG [CPAP As directed] diltiazem HCl CD 180 mg PO DAILY hydroxychloroquine 200 mg PO BID ipratropium-albuterol 0.5 mg-3 mg(2.5 mg base)/3 mL 3 mL inhalation Q4-6H PRN 30 days lisinopril 5 mg PO DAILY mecobalamin (vitamin B12) 1,000 mcg PO DAILY mupirocin 2% 1 appl topical BID-TID omeprazole 20 mg PO DAILY pravastatin 20 mg PO DAILY pregabalin (Lyrica) Take 1 tab qam and 2 tabs qhs Can make you dizzy/groggy. Do not drive or operate heavy machinery if feeling as such. Trelegy Ellipta 200-62.5-25 mcg ([id number]-chfnlhgnd-[id number]) 1 inh inhalation DAILY 90 days NS warfarin 5 mg See Protocol PO DAILY HPI Comments Details: Konrad returns for follow-up regarding atrial fibrillation. To recall, he underwent cardioversion in 2016. Was initially amiodarone which was later stopped. Then he reverted to atrial fibrillation at some point and has been maintained on rate control only. Overall, he states he is doing exceptionally well. He has got absolutely no cardiac symptoms whatsoever. He is walking as much as 2 miles regularly with no issues. No chest pains or shortness of breath. Leg swelling is chronic and well controlled. He states it is actually better than before. [facility] Medical History (Updated 10/25/23 @ 13:22 by Izzy Kimbrough MD) Restless legs syndrome (RLS) Neuropathy Current use of anticoagulant therapy COVID-19 virus infection Post covid-19 condition, unspecified Hospital discharge follow-up Persistent atrial fibrillation On methotrexate therapy Cor pulmonale (chronic) Insomnia Hemothorax Vitamin D deficiency Right renal stone Peripheral vascular disease GERD (gastroesophageal reflux disease) Impaired glucose tolerance Hypercholesterolemia Hypertension Atrial fibrillation Severe obstructive sleep apnea Primary osteoarthritis of knees, bilateral 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 Mother Rheumatoid arteritis Sister Breast cancer Other Mental health disorder Substance use disorder Social History Household Members: Significant Other Housing: Apartment Do you presently have visiting nurse or other home services: No Alcohol intake: former Patient Tobacco Use Status: Former Tobacco user Tobacco use type: Cigarette Years Smoked: 49 e-Cigarette/Vaping Use: Never Used Second Hand Smoke Exposure: No Substance Use Type: Marijuana service: No Current occupational status: retired Cognitive needs: No Hearing needs: No Vision needs: Yes Review of Systems Const Denies weakness ENT Denies dizziness Card Denies chest pain, Denies chest pain with activity, Denies syncope, Denies rapid heart rate, Denies pedal edema, Denies edema, Denies leg edema, Denies lightheadedness, Denies palpitations, Denies dyspnea, Denies dyspnea on exertion and Denies orthopnea Resp Denies cough, Denies dyspnea and Denies dyspnea on exertion GI Denies hematochezia and Denies change in stool character Musc Denies abnormal gait, Denies muscle cramps, Denies muscle weakness, Denies numbness, Denies radiating pain into limb and Denies tingling Neuro Denies abnormal gait, Denies dizziness, Denies syncope, Denies numbness, Denies tingling and Denies weakness Endo Denies palpitations Physical Exam Vital Signs: Last Vital Signs Pulse 60 01/17/24 10:17 BP 130/72 01/17/24 10:17 BMI result Body Mass Index 34.5 Const General: comfortable and no acute distress Orientation/consciousness: patient oriented x3 HEENT Other: Unremarkable Head: Yes normal to inspection Neck Neck: Yes normal visual inspection Chest Chest palpation & inspection: normal inspection of the chest Resp Auscultation: clear to auscultation bilaterally Cardio Palpation: normal PMI Heart sounds: S1 normal heart sound present, S2 normal heart sound present, no gallops, no murmurs and no rubs GI Palpation (GI): Soft to palpation Back/Spine/Pelvis Other: unremarkable Skin General skin exam: no rashes or lesions noted Neuro General: patient oriented x3 Extrem Other: 1+ swelling General: Yes normal to inspection Psych Mental Status: mental status grossly normal Office Procedures EKG Details: EKG with atrial fibrillation at 60/Min; cannot exclude old inferior infarct; right bundle-branch block pattern. Similar to prior. [id number], Complete Assessment & Plan Assessment & Plan (1) Persistent atrial fibrillation: Code(s): I48.19 - Other persistent atrial fibrillation Category: Medical Plan: Stable. On Diltiazem and Warfarin. (2) Severe obstructive sleep apnea: Comment: CPAP use Code(s): G47.33 - Obstructive sleep apnea (adult) (pediatric) Category: Medical Plan: Sleep study from 2020 reported as very severe obstructive sleep apnea. Continue CPAP. (3) Cor pulmonale (chronic): Code(s): I27.81 - Cor pulmonale (chronic) Category: Medical Plan: This has been stable and there has not been any recent exacerbations. On Bumex. (4) Hypertension: Code(s): I10 - Essential (primary) hypertension Category: Medical Qualifiers: Hypertension type: essential hypertension Qualified Code(s): I10 - Essential (primary) hypertension Plan: Stable. Continue lisinopril. Coding Level of Care Code Est Pt Level 4 (61992) Diagnoses Persistent atrial fibrillation I48.19 Severe obstructive sleep apnea G47.33 Cor pulmonale (chronic) I27.81 Essential hypertension I10 Hypertension type: essential hypertension CPT Codes EKG - CPT: [id number]-[id number], Complete ([id number])
== END 2024-01-17 10:47 | disposition home or self-care (01) ==
PROVIDERS: PCP Internal Medicine; Visit Provider Internal Medicine
DX: I48.19 Other persistent atrial fibrillation (principal); G47.33 Obstructive sleep apnea (adult) (pediatric); I27.81 Cor pulmonale (chronic); I10 Essential (primary) hypertension
CPT/HCPCS: 93010; 99214

== ENCOUNTER → 2024-01-17 10:08 | Outpatient (BNVA) | payer MEDICARE, SELFPAY | PROVIDERS: PCP Internal Medicine; Visit Provider Internal Medicine | DX: I48.19 Other persistent atrial fibrillation (principal); G47.33 Obstructive sleep apnea (adult) (pediatric); I27.81 Cor pulmonale (chronic); I10 Essential (primary) hypertension | CPT/HCPCS: 93005; 99212 ==

== ENCOUNTER → 2024-01-19 09:24 | Outpatient (BNVA) | payer MEDICARE, SELFPAY | PROVIDERS: PCP Internal Medicine; Visit Provider Internal Medicine | DX: I48.19 Other persistent atrial fibrillation (principal); Z79.01 Long term (current) use of anticoagulants; Z51.81 Encounter for therapeutic drug level monitoring | CPT/HCPCS: 99212 ==

== ENCOUNTER 2024-01-19 09:55 | Outpatient (AMB) | payer MEDICARE, SELFPAY ==
--- NOTE | 2024-01-19 09:57 | MHC.OFFVIS ---
Vital Signs 01/19/24 10:01 Height 6 ft 2 in Weight 269 lb 13.533 oz BMI 34.6 BP 132/60 Blood Pressure Location Lt brachial Position Sitting Respiration 16 Pulse 76 Pulse Source Pulse Oximeter Pulse Oximetry (%) 95 Oxygen Delivery Method Room Air Intake Visit Reasons: RA/CM APT Intake Note: Patient presents for RA. Allergies Penicillins [PCN] Allergy (Unknown, Verified 01/19/24 10:00) UNKNOWN- RXN CHILD/? HIVES Medication List - Last Reconciled 01/19/24 by Brea Mitchell MD acetaminophen 650 mg PO Q6H PRN albuterol sulfate 90 mcg/actuation 2 puffs inhalation Q4-6H PRN 3 months ascorbic acid (vitamin C) 1,000 mg PO DAILY bumetanide 2 mg PO BID cholecalciferol (vitamin D3) 25 mcg PO DAILY compr.stocking,knee,long,large As directed 20-30 mm HG [CPAP As directed] diltiazem HCl CD 180 mg PO DAILY hydroxychloroquine 200 mg PO BID ipratropium-albuterol 0.5 mg-3 mg(2.5 mg base)/3 mL 3 mL inhalation Q4-6H PRN 30 days lisinopril 5 mg PO DAILY mecobalamin (vitamin B12) 1,000 mcg PO DAILY mupirocin 2% 1 appl topical BID-TID omeprazole 20 mg PO DAILY pravastatin 20 mg PO DAILY pregabalin (Lyrica) Take 1 tab qam and 2 tabs qhs Can make you dizzy/groggy. Do not drive or operate heavy machinery if feeling as such. Trelegy Ellipta 200-62.5-25 mcg (cuqwmwhyrye-jditrobty-irqkmzmx) 1 inh inhalation DAILY 90 days NS warfarin 5 mg See Protocol PO DAILY HPI Comments Details: 68yoM presents for follow-up of seronegative RA. Last seen 06/2023 On hydroxychloroquine 200 mg Twice daily. Well tolerated Patient states that he is doing reasonably well in terms of his arthritis. Recently has not had any significant pain swelling or stiffness of his hands or his other joints. States that he feels he has a sliver on the outside of his right foot. He will see his battery filler soon. States that his neurologist increase his Lyrica. 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 Mother Rheumatoid arteritis Sister Breast cancer Other Mental health disorder Substance use disorder Social History Household Members: Significant Other Housing: Apartment Do you presently have visiting nurse or other home services: No Alcohol intake: former Patient Tobacco Use Status: Former Tobacco user Tobacco use type: Cigarette Years Smoked: 49 e-Cigarette/Vaping Use: Never Used Second Hand Smoke Exposure: No Substance Use Type: Marijuana service: No Current occupational status: retired Cognitive needs: No Hearing needs: No Vision needs: Yes Review of Systems Musc Denies arthralgias, Denies joint swelling and Denies stiffness Physical Exam Vital Signs: Last Vital Signs Pulse 76 01/19/24 10:01 Resp 16 01/19/24 10:01 BP 132/60 01/19/24 10:01 Pulse Ox 95 01/19/24 10:01 Oxygen Delivery Method Room Air 01/19/24 10:01 BMI result Body Mass Index 34.6 Const General: cooperative, healthy appearing and comfortable Nutritional Appearance: obese Orientation/consciousness: patient oriented x3 Limitations: no limitations HEENT Head: Yes normocephalic and Yes atraumatic Resp Effort & Inspection: normal respiratory effort Neuro General: patient oriented x3 Extrem Other: Mild flexion contracture of few right hand fingers. No swollen or tender joints both hands, wrists, elbows Normal range of motion of elbows and shoulders without pain Negative MCP squeeze test bilaterally Flexion contracture of right 5th PIP (boutonniere) Normal range of motion of both wrists, elbows and shoulders with without pain No ankle tenderness today No MTP tenderness bilateral but patient has reduced sensation both feet Hammertoes left foot Results AMB INR Fingerstick AMB INR Fingerstick 2.5 Last Edit by Flori Gamboa RN on 01/19/24 09:32 Assessment & Plan Assessment & Plan (1) Seronegative rheumatoid arthritis: Comment: Methotrexate- 2017- January 2022, discontinued due to right lower extremity cellulitis Humira 2019-January 2022, discontinued due to right lower extremity cellulitis Prednisone- off since October 2019 HCQ 10/21 effective Code(s): M06.00 - Rheumatoid arthritis without rheumatoid factor, unspecified site Category: Medical Plan: This is a 68-year-old male with seronegative RA or presents for follow-up. On hydroxychloroquine 200 mg Twice daily. Doing well overall with no active synovitis on exam. Continue with hydroxychloroquine 20 mg Twice daily Labs before next visit in 6 months (2) Long-term use of hydroxychloroquine: Code(s): Z79.899 - Other [facility] (current[facility] drug therapy Category: Medical Plan: follow-up regularly with Ophthalmology Plan I spent 27 minutes reviewing patient's chart, evaluating patient, ordering diagnostic workup, counseling patient and documenting in the chart Orders: Orders Complete Blood Count Auto Diff 6 Months M06.00 - Rheumatoid arthritis without rheumatoid factor, unspecified site Comprehensive Met. Panel 6 Months M06.00 - Rheumatoid arthritis without rheumatoid factor, unspecified site C Reactive Protein 6 Months M06.00 - Rheumatoid arthritis without rheumatoid factor, unspecified site Erythrocyte Sedimentation Rate 6 Months M06.00 - Rheumatoid arthritis without rheumatoid factor, unspecified site Medications: Refilled hydroxychloroquine 200 mg PO BID 180 tabs 1RF Coding Level of Care Code Est Pt Level 4 (86379) Diagnoses Seronegative rheumatoid arthritis M06.00 Long-term use of hydroxychloroquine Z79.899
[2024-01-19 10:01] VITALS: BP 132/60; PULSE 76; RESP 16; O2SAT 95; BMI 34.6
== END 2024-01-19 10:34 | disposition home or self-care (01) ==
PROVIDERS: PCP Internal Medicine; Visit Provider Student in an Organized Health Care Education/Training Program
DX: M06.00 Rheumatoid arthritis without rheumatoid factor, unspecified site (principal); Z79.899 Other long term (current) drug therapy
CPT/HCPCS: 99214

== ENCOUNTER 2024-01-25 15:22 | Outpatient (AMB) | payer MEDICARE, SELFPAY ==
--- NOTE | 2024-01-25 15:25 | HO.NEPHOV ---
Vital Signs 01/25/24 15:26 Height 6 ft 2 in Weight 268 lb BMI 34.4 BP 120/58 L Blood Pressure Location Lt brachial Position Sitting Pulse 61 Pulse Source Pulse Oximeter Pulse Oximetry (%) 93 Oxygen Delivery Method Room Air Intake Visit Reasons: Localized edema/ Conf Entry Level Account Executive Required: No Accompanied by: Self / Same As Patient Allergies Penicillins [PCN] Allergy (Unknown, Verified 01/25/24 15:27) UNKNOWN- RXN CHILD/? HIVES Medication List - Last Reconciled 01/25/24 by Ifeanyi Kimbrough MD acetaminophen 650 mg PO Q6H PRN albuterol sulfate 90 mcg/actuation 2 puffs inhalation Q4-6H PRN 3 months ascorbic acid (vitamin C) 1,000 mg PO DAILY bumetanide 2 mg PO BID cholecalciferol (vitamin D3) 25 mcg PO DAILY compr.stocking,knee,long,large As directed 20-30 mm HG [CPAP As directed] diltiazem HCl CD 180 mg PO DAILY hydroxychloroquine 200 mg PO BID ipratropium-albuterol 0.5 mg-3 mg(2.5 mg base)/3 mL 3 mL inhalation Q4-6H PRN 30 days lisinopril 5 mg PO DAILY mecobalamin (vitamin B12) 1,000 mcg PO DAILY omeprazole 20 mg PO DAILY pravastatin 20 mg PO DAILY pregabalin (Lyrica) 1 tab in AM 2 PM Trelegy Ellipta 200-62.5-25 mcg (gikflcrffzx-mtjsxucyf-iozppzdc) 1 inh inhalation DAILY 90 days NS warfarin 5 mg See Protocol PO DAILY HPI Comments Details: 68-year-old man referred for edema. Konrad has COPD with right heart failure with moderately decreased right ventricular function. He is on Bumex 2 mg 2 tablets a day. History of atrial fibrillation on anticoagulation and diltiazem. Recent creatinine was 0.9 mg/dL. Urinalysis done few years ago did not reveal any proteinuria. Serum albumin is 2.4. Overall he is watching his diet and tries to stay on low-sodium diet. At present he has no history of smoking he has remote history of smoking. History of sleep apnea but uses CPAP regularly. Ongoing medical problems include atrial fibrillation Right heart failure/cor pulmonale. COPD Seronegative rheumatoid arthritis Hyper tension Chronic leg edema Neuropathy [facility] Medical History Restless legs syndrome (RLS) Neuropathy Current use of anticoagulant therapy COVID-19 virus infection Post covid-19 condition, unspecified Hospital discharge follow-up Persistent atrial fibrillation On methotrexate therapy Cor pulmonale (chronic) Insomnia Hemothorax Vitamin D deficiency Right renal stone Peripheral vascular disease GERD (gastroesophageal reflux disease) Impaired glucose tolerance Hypercholesterolemia Hypertension Atrial fibrillation Severe obstructive sleep apnea Primary osteoarthritis of knees, bilateral correction methotrexate user Seronegative rheumatoid arthritis Current use of anticoagulant therapy Moderate COPD (chronic obstructive pulmonary disease) History of cardioversion Surgical History Hx of foot surgery History of umbilical hernia repair Hx of tonsillectomy S/P emergency tracheotomy for assistance in breathing Family History Father No problems noted. Mother Rheumatoid arteritis Sister Breast cancer Other Mental health disorder Substance use disorder Social History Household Members: Significant Other Housing: Apartment Do you presently have visiting nurse or other home services: No Alcohol intake: former Patient Tobacco Use Status: Former Tobacco user Tobacco use type: Cigarette Years Smoked: 49 e-Cigarette/Vaping Use: Never Used Second Hand Smoke Exposure: No Substance Use Type: Marijuana service: No Current occupational status: retired Cognitive needs: No Hearing needs: No Vision needs: Yes Review of Systems Const Denies fever(s) and Denies weight loss Card Denies chest pain Resp Denies cough and Denies hemoptysis GI Denies abdominal pain, Denies diarrhea and Denies nausea Musc Denies back pain Neuro Denies focal weakness Physical Exam Vital Signs: Last Vital Signs Pulse 61 01/25/24 15:26 BP 120/58 L 01/25/24 15:26 Pulse Ox 93 01/25/24 15:26 Oxygen Delivery Method Room Air 01/25/24 15:26 BMI result Body Mass Index 34.4 Comfortable Neck supple no JVD. Lungs entry equal no rales. Bilateral scattered rhonchi Heart S1-S2 heard no gallop or rub. Abdomen soft nontender. Neuro alert awake oriented. No asterixis. Extremities 1+ edema. Results Reviewed Nephrology Results: Hgb 14.3 g/dl (14.0-18.0) 01/14/24 WBC 8.0 X10*3/uL (4.8-10.8) 01/14/24 Plt Count 189 X10*3/uL (160-400) 01/14/24 Sodium 142 mmol/L (135-145) 01/14/24 Potassium 4.1 mmol/L (3.3-5.1) 01/14/24 Chloride 103 mmol/L (96-108) 01/14/24 Carbon Dioxide 32 mmol/L (22-29) H 01/14/24 BUN 21 mg/dL (9-16) H 01/14/24 Creatinine 0.97 mg/dL (0.5-1.4) 01/14/24 Calcium 9.6 mg/dL (8.4-10.2) 01/14/24 Assessment & Plan Assessment & Plan (1) Cor pulmonale (chronic): Code(s): I27.81 - Cor pulmonale (chronic) Category: Medical Plan 68-year-old man with chronic leg edema in the setting of right heart failure. Konrad has call primarily/pulmonary hypertension. This is the most likely cause for the edema. Renal function stable He has no significant proteinuria or hypoalbuminemia. He has mild alkalosis probably due to diuretics or from compensation secondary to mild respiratory acidosis in the setting of COPD. Recommendation Low-salt diet Stay on current dose of Bumex Tight stockings Continue with diltiazem along with the anticoagulation He might benefit from phosphodiesterase 2 inhibitor like sildenafil. I will defer this to his admittance attendant Orders: Orders Basic Metabolic Panel Today Ifeanyi Kimbrough MD I27.81 - Cor pulmonale (chronic) Total Protein Urine Random Today Ifeanyi Kimbrough MD I27.81 - Cor pulmonale (chronic) UA and rflx microscopic Today Ifeanyi Kimbrough MD I27.81 - Cor pulmonale (chronic) Creatinine Urine Today Ifeanyi Kimbrough MD I27.81 - Cor pulmonale (chronic) Complete Blood Count no Diff Today Ifeanyi Kimbrough MD I27.81 - Cor pulmonale (chronic) Medications: Changed From pregabalin (Lyrica) Take 1 tab qam and 2 tabs qhs Can make you dizzy/groggy. Do not drive or operate heavy machinery if feeling as such. 180 caps 1RF To pregabalin (Lyrica) 1 tab in AM 2 PM Izzy Kimbrough MD Coding Level of Care Code New Pt Level 5 (36690) Diagnoses Cor pulmonale (chronic) I27.81
[2024-01-25 15:26] VITALS: BP 120/58; PULSE 61; O2SAT 93; BMI 34.4
== END 2024-01-25 16:02 | disposition home or self-care (01) ==
PROVIDERS: PCP Internal Medicine; Referring Provider Internal Medicine Pulmonary Disease; Visit Provider Internal Medicine Hypertension Specialist
DX: I27.81 Cor pulmonale (chronic) (principal)
CPT/HCPCS: 99204

== ENCOUNTER → 2024-01-25 15:22 | Outpatient (BNVA) | payer MEDICARE, SELFPAY | PROVIDERS: PCP Internal Medicine; Referring Provider Internal Medicine Pulmonary Disease; Visit Provider Internal Medicine Hypertension Specialist | DX: I27.81 Cor pulmonale (chronic) (principal); I50.9 Heart failure, unspecified; R60.0 Localized edema | CPT/HCPCS: 99202 ==

== ENCOUNTER → 2024-01-26 13:45 | Outpatient (BNVA) | payer MEDICARE, SELFPAY | PROVIDERS: PCP Internal Medicine; Visit Provider Internal Medicine ==

== ENCOUNTER → 2024-02-02 11:46 | Outpatient (BNVA) | payer MEDICARE, SELFPAY | PROVIDERS: PCP Internal Medicine; Visit Provider Internal Medicine ==

== ENCOUNTER 2024-02-02 13:09 | Outpatient (REF) | payer MEDICARE, SELFPAY ==
[2024-02-02 16:13] LABS: Hematocrit 46.9 % (42.0-52.0); Hemoglobin 15.5 g/dl (14.0-18.0); Mean Corpuscular Hemoglobin 32.9 pg (27.0-33.0); Mean Corpuscular Volume 99.6 fL (80.0-98.0); Platelet Count 228 X10*3/uL (160-400); Red Blood Count 4.71 X10*6/uL (4.60-5.80); Red Cell Distribution Width 13.9 % (11.0-16.0)
[2024-02-02 16:21] LABS: Appearance Urine Clear; Color Urine Yellow; Glucose Urine UA Negative (Negative); Leukocyte Esterase Urine Negative (Negative); Nitrite Urine Negative (Negative); PH 6.5 (5.0-9.0); Urine Blood Negative (Negative); Urine Ketones Negative (Negative); Urine Protein Negative (Neg-Trace)
[2024-02-02 16:33] LABS: Anion Gap 15 (12-20); Blood Urea Nitrogen 15 mg/dL (9-16); Calcium 9.4 mg/dL (8.4-10.2); Carbon Dioxide 30 mmol/L (22-29); Chloride 101 mmol/L (96-108); Estimated Glomerular Filt Rate > 60; Glucose Random 90 mg/dL (60-115); Sodium 142 mmol/L (135-145)
[2024-02-02 17:30] LABS: Creatinine Urine 32.65 mg/dL; Total Protein Urine Random < 7 mg/dL (<12)
--- OUTSIDE RECORDS SUMMARY | 2024-02-08 19:24 | XMS_ITS | Continuity of Care Document ---
Author Organization [facility] Address [address] [place] [address] [address] [place] [phone] Phone Care Team Providers Care Art Objects Repairer Name Role Phone Mesha Bell MD, FACS, RVT Unavailable Unavailable Procedures Procedure Date 11-20 Min Medical Discussion On Phone - Telemedicine Advance Directives Directive Yes / No Effective Date File Name No Information Encounters Encounter Description Practice Location Reason(s) For Visit Diagnoses Date Provider Providers Copied on Encounter [facility], [address] [place] [address] [address] [place], [id number], [place] tel:[phone] [facility] No Information 3 Chun Perez. [address] [place] [address], [address], [place]. tel:[phone] Referring Provider: Sky Hector IV, MD , [address] [place] [address], [id number]. tel:[phone] 11-20 Min Medical Discussion On Phone - Telemedicine [facility], [address] [place] [address] [address] [place], [id number], [place] tel:[phone] [facility] Venous insufficiency (chronic) (peripheral) 3 Chun Perez. [address] [place] [address], [address], [place]. tel:[phone] Referring Provider: Sky Augustin, [address] [place] [address] [place], [id number]. tel:[phone] Family History Family Member Type Diagnosis Age At Onset No Information Payers Payer name Insurance type Covered green party ID Authoriza tion(s) [place] [id number] [place] [id number] Social History Type Description Quantity Date Captured [...]
== END 2024-02-02 13:10 | disposition home or self-care (01) ==
LOC: HO.HMGCLDS 13:09
PROVIDERS: PCP Internal Medicine; Visit Provider Internal Medicine Hypertension Specialist
DX: I27.81 Cor pulmonale (chronic) (principal)
CPT/HCPCS: 36415; 80048; 81003; 82570; 84156; 85027

== ENCOUNTER → 2024-02-09 10:11 | Outpatient (BNVA) | payer MEDICARE, SELFPAY | PROVIDERS: PCP Internal Medicine; Visit Provider Internal Medicine ==

== ENCOUNTER → 2024-02-16 10:10 | Outpatient (BNVA) | payer MEDICARE, SELFPAY | PROVIDERS: PCP Internal Medicine; Visit Provider Internal Medicine ==

== ENCOUNTER → 2024-02-24 12:47 | Outpatient (BNVA) | payer MEDICARE, SELFPAY | PROVIDERS: PCP Internal Medicine; Visit Provider Internal Medicine ==

== ENCOUNTER → 2024-03-02 09:27 | Outpatient (BNVA) | payer MEDICARE, SELFPAY | PROVIDERS: PCP Internal Medicine; Visit Provider Internal Medicine ==

== ENCOUNTER → 2024-03-15 10:36 | Outpatient (BNVA) | payer MEDICARE, SELFPAY | PROVIDERS: PCP Internal Medicine; Visit Provider Internal Medicine ==

== ENCOUNTER 2024-03-16 08:39 | Outpatient (AMB) | payer MEDICARE, SELFPAY ==
--- NOTE | 2024-03-16 08:47 | MHC.PC.OV ---
Vital Signs 03/16/24 08:48 Height 6 ft 2 in Weight 271 lb BMI 34.8 BP 158/78 H Blood Pressure Location Lt brachial Position Sitting Pulse 69 Pulse Source Pulse Oximeter Pulse Oximetry (%) 94 Oxygen Delivery Method Room Air Intake Visit Reasons: COPD,AFIB Allergies Penicillins [PCN] Allergy (Unknown, Verified 03/16/24 08:49) UNKNOWN- RXN CHILD/? HIVES Tobacco use date assessed: 03/16/24 Fall risk assessment: No Falls in past year Last assessed Fall Risk: 03/16/24 Dental Screening Dental Screen Date: 03/16/24 Did you have a dental visit in the last 12 months?: Yes Did you have a dental problem in the last 6 months where you did not have access to dental care?: No Was dental information given to patient?: Patient has dentist HPI COPD,AFIB HPI Details The patient is a 69-year-old male presenting with a follow-up for congestive heart failure, chronic renal insufficiency, peripheral neuropathy, and hypertension. The patient has a history of cardiology, nephrology, and neurology consultations. He has been prescribed a diuretic for fluid management in relation to heart failure, which has been monitored for its impact on renal function. There was a noted adjustment of pregabalin for peripheral neuropathy. The most recent laboratory assessments were reportedly normal as of January, but continued monitoring has been discussed due to the impact of diuretics on renal function. The patient reports using an orthopedic shoe insert for his pedal issues including a hammer toe. Additionally, he has been seeing a retail team member for rheumatoid arthritis, on hydroxychloroquine as part of his regimen. Further, the patient was advised on lifestyle modifications to support the management of his conditions. A scheduled CAT scan for a known pulmonary nodule has not yet been organized; the last was in 2022. The patient adheres to a CPAP for sleep apnea and utilizes an albuterol nebulizer as needed during colder weather. He exhibits persistent peripheral edema which is relatively managed with support stockings. Blood pressure management is ongoing, though recent readings indicate elevated levels attributed to recent stimulant intake compounded by withholding antihypertensive medication temporarily. Preventive health measures included vaccination status updates with uncertain COVID-19 vaccination. [facility] Medical History Restless legs syndrome (RLS) Neuropathy Current use of anticoagulant therapy COVID-19 virus infection Post covid-19 condition, unspecified Hospital discharge follow-up Persistent atrial fibrillation On methotrexate therapy Cor pulmonale (chronic) Insomnia Hemothorax Vitamin D deficiency Right renal stone Peripheral vascular disease GERD (gastroesophageal reflux disease) Impaired glucose tolerance Hypercholesterolemia Hypertension Atrial fibrillation Severe obstructive sleep apnea Primary osteoarthritis of knees, bilateral halfway methotrexate user Seronegative rheumatoid arthritis Current use of anticoagulant therapy Moderate COPD (chronic obstructive pulmonary disease) History of cardioversion Surgical History Hx of foot surgery History of umbilical hernia repair Hx of tonsillectomy S/P emergency tracheotomy for assistance in breathing Family History Father No problems noted. Mother Rheumatoid arteritis Sister Breast cancer Other Mental health disorder Substance use disorder Social History Household Members: Significant Other Housing: Apartment Do you presently have visiting nurse or other home services: No Alcohol intake: former Patient Tobacco Use Status: Former Tobacco user Tobacco use type: Cigarette Years Smoked: 49 e-Cigarette/Vaping Use: Never Used Second Hand Smoke Exposure: No Substance Use Type: Marijuana service: No Current occupational status: retired Cognitive needs: No Hearing needs: No Vision needs: Yes Questionnaire PHQ-9 Over the last 2 weeks, how often have you been bothered by any of the following problems? 1. Little interest or pleasure in doing things: several days 2. Feeling down, depressed, or hopeless: several days 3. Trouble falling or staying asleep, or sleeping too much: not at all 4. Feeling tired or having little energy: not at all 5. Poor appetite or overeating: not at all 6. Feeling bad about yourself - or that you are a failure or have let yourself or your family down: not at all 7. Trouble concentrating on things, such as reading the newspaper or watching television: not at all 8. Moving or speaking so slowly that other people could have noticed. Or the opposite - being so fidgety or restless that you have been moving around a lot more than usual: not at all 9. Thoughts that you would be better off or of hurting yourself in some way: not at all Total score: 2 Depression Screening Interpretation: Negative Depression Screening Done: Yes 23150 - PHQ-9 Billing: Yes Source: Developed by Drs. Zachary Epps, Aleta Stone, Chaparro Nation and colleagues, with an educational anastacio from [employer]. Thrive Questionnaire Date Thrive assessed: 03/16/24 I am a: Patient What is your living situation today?: I have a steady place to live Within the past 12 months, did the food you bought not last and you didn't have the money to get more?: Never true Within the past 12 months, did you worry whether your food would run out before you got money to buy more?: Never true Do you have trouble paying for medicines?: No Do you have trouble getting transportation to medical appointments?: No Do you have trouble paying your heating and electricity bill?: No Do you have trouble taking care of your child, family member or friend?: No Do you have trouble with day-to-day activities such as bathing, preparing meals, shopping, managing finances, etc.?: No Are you currently unemployed and looking for a job?: No Are you interested in more education?: No Currently or been in a relationship where the following occur: No concerns reported THRIVE Score: 0 AUDIT C Alcohol Use Questionnaire (AUDIT-C) 1. How often do you have a drink containing alcohol?: 2-3 times a week 2. How many drinks containing alcohol do you have on a typical day when you are drinking?: 3 or 4 3. How often do you have six or more drinks on one occasion?: Never Total Score: 4 MARELY-7 AMB Questionnaire MARELY-7 Date MARELY - 7 assessed: 03/16/24 Feeling nervous, anxious, or on edge: 0 = Not at all Not being able to stop or control worryin = Not at all Worrying too much about different things: 0 = Not at all Trouble relaxin = Not at all Being so restless that it is hard to sit still: 0 = Not at all Becoming easily annoyed or irritable: 0 = Not at all Feeling afraid as if something awful might happen: 0 = Not at all Total MARELY-7 score (0-4 normal; 5-9 mild; 10-14 moderate; 15-21 severe): 0 Source: Developed by Drs. Zachary Epps, Aleta Stone, Chaparro Nation and colleagues, with an educational anastacio from [employer]. Physical exam (Primary Care) Vital Signs: Last Vital Signs Pulse 69 03/16/24 08:48 BP 158/78 H 03/16/24 08:48 Pulse Ox 94 03/16/24 08:48 Oxygen Delivery Method Room Air 03/16/24 08:48 BMI result Body Mass Index 34.8 Tobacco/Smoking Status: Tobacco use Status Tobacco use date assessed 03/16/24 03/16/24 08:56 Patient Tobacco Use Status Former Tobacco user 03/16/24 08:56 Tobacco use type Cigarette 03/16/24 08:56 e-Cigarette/Vaping Use Never Used 03/16/24 08:56 PHQ-9: PHQ-9 Score PHQ-9: Total score 2 03/16/24 08:56 Depression Screening Interpretation: Negative Thrive Assessment: Date of Thrive Assessment Date Thrive assessed 03/16/24 03/16/24 08:56 Currently or been in a relationship where the following occur: No concerns reported Const General: alert; No acute distress Eyes Conjunctivae: conjunctivae normal Resp Auscultation: clear to auscultation bilaterally Cardio Rate: regular rate Rhythm: regular rhythm GI Inspection: Yes normal to inspection Extrem General: Yes normal to inspection and No edema Coding Level of Care Code Est Pt Level 4 (61054) Complex EM visit Add On G2211 Diagnoses Severe obstructive sleep apnea G47.33 Hypercholesterolemia E78.00 Impaired glucose tolerance R73.02 Peripheral vascular disease I73.9 Moderate COPD (chronic obstructive pulmonary disease) J44.9 Right leg DVT I82.401 Cor pulmonale (chronic) I27.81 Seronegative rheumatoid arthritis M06.00 Persistent atrial fibrillation I48.19 Obesity (BMI 30.0-34.9) E66.9 Neuropathy G62.9 Impacted cerumen of both ears H61.23 Additional Codes PHQ-9 - 22540 - PHQ-9 Billing: Yes ([id number]) Assessment & Plan Assessment & Plan (1) Severe obstructive sleep apnea: Comment: CPAP use Code(s): G47.33 - Obstructive sleep apnea (adult) (pediatric) Category: Medical (2) Hypercholesterolemia: Code(s): E78.00 - Pure hypercholesterolemia, unspecified Category: Medical (3) Impaired glucose tolerance: Code(s): R73.02 - Impaired glucose tolerance (oral) Category: Medical (4) Peripheral vascular disease: Code(s): I73.9 - Peripheral vascular disease, unspecified Category: Medical (5) Moderate COPD (chronic obstructive pulmonary disease): Code(s): J44.9 - Chronic obstructive pulmonary disease, unspecified Category: Medical (6) Right leg DVT: Code(s): I82.401 - Acute embolism and thrombosis of unspecified deep veins of right lower extremity Category: Medical (7) Cor pulmonale (chronic): Code(s): I27.81 - Cor pulmonale (chronic) Category: Medical (8) Seronegative rheumatoid arthritis: Comment: Methotrexate- 2017- January 2022, discontinued due to right lower extremity cellulitis Humira 2019-January 2022, discontinued due to right lower extremity cellulitis Prednisone- off since October 2019 HCQ 10/21 effective Code(s): M06.00 - Rheumatoid arthritis without rheumatoid factor, unspecified site Category: Medical (9) Persistent atrial fibrillation: Code(s): I48.19 - Other persistent atrial fibrillation Category: Medical (10) Obesity (BMI 30.0-34.9): Code(s): E66.9 - Obesity, unspecified Category: Medical (11) Neuropathy: Comment: related to his rheumatoid Code(s): G62.9 - Polyneuropathy, unspecified Category: Medical (12) Impacted cerumen of both ears: Code(s): H61.23 - Impacted cerumen, bilateral Category: Medical Plan: will need irrigation Plan - Continue current cardiology management for congestive heart failure, including monitoring of heart function and blood volume status. - Maintain nephrology follow-up for chronic renal insufficiency with attention to fluid balance and renal function tests. - Continue pregabalin for peripheral neuropathy; monitor symptoms and adjust prn. - For hammer toe, continue orthopedic shoe wear, recommended podiatry referral prn as symptoms persist. - Adjust hypertension medication if elevated readings persist; patient education on lifestyle modifications including diet and exercise. - Continue hydroxychloroquine for rheumatoid arthritis with retail team member oversight. - Discussed the importance of completing the pulmonary nodule follow-up with a CAT scan as previously scheduled. - Continue use of CPAP nightly for obstructive sleep apnea. - Educate on albuterol inhaler use prn, especially in cold weather, and ensure nebulizer medication availability. - Reassess vaccination needs and patient preferences for COVID-19 vaccine while updating influenza vaccine status. - Recommend RSV vaccination for preventive care in light of respiratory season if desired. - Educate about potential impacts of current lifestyle factors on hypertension and health and emphasize the need for regular physical activity, despite personal circumstances.
[2024-03-16 08:48] VITALS: BP 158/78; PULSE 69; O2SAT 94; BMI 34.8
== END 2024-03-16 09:36 | disposition home or self-care (01) ==
PROVIDERS: PCP Internal Medicine; Visit Provider Internal Medicine
DX: I73.9 Peripheral vascular disease, unspecified (principal); J44.9 Chronic obstructive pulmonary disease, unspecified; I82.401 Acute embolism and thrombosis of unspecified deep veins of right lower extremity; I27.81 Cor pulmonale (chronic); M06.00 Rheumatoid arthritis without rheumatoid factor, unspecified site; I48.19 Other persistent atrial fibrillation; G47.33 Obstructive sleep apnea (adult) (pediatric); E78.00 Pure hypercholesterolemia, unspecified; R73.02 Impaired glucose tolerance (oral); E66.9 Obesity, unspecified; G62.9 Polyneuropathy, unspecified; H61.23 Impacted cerumen, bilateral

== ENCOUNTER → 2024-03-16 08:39 | Outpatient (BNVA) | payer MEDICARE, SELFPAY | PROVIDERS: PCP Internal Medicine; Visit Provider Internal Medicine | DX: G47.33 Obstructive sleep apnea (adult) (pediatric) (principal); E78.00 Pure hypercholesterolemia, unspecified; R73.02 Impaired glucose tolerance (oral); I73.9 Peripheral vascular disease, unspecified; J44.9 Chronic obstructive pulmonary disease, unspecified; I82.401 Acute embolism and thrombosis of unspecified deep veins of right lower extremity; I27.81 Cor pulmonale (chronic); M06.00 Rheumatoid arthritis without rheumatoid factor, unspecified site; I48.19 Other persistent atrial fibrillation; E66.9 Obesity, unspecified; G62.9 Polyneuropathy, unspecified; H61.23 Impacted cerumen, bilateral | CPT/HCPCS: 96127; 99212 ==

== ENCOUNTER 2024-03-17 09:54 | Outpatient (AMB) | payer MEDICARE, SELFPAY ==
--- NOTE | 2024-03-17 10:13 | A.OFFPC_ITS ---
Vital Signs 03/17/24 10:14 Height 6 ft 2 in Weight 267 lb 6 oz BMI 34.3 BP 136/74 Blood Pressure Location Lt brachial Position Sitting Pulse 72 Pulse Source Pulse Oximeter Temp 97.1 F Temp Source Skin Pulse Oximetry (%) 96 Oxygen Delivery Method Room Air Intake Visit Reasons: Ear Irrigation Intake Note: Patient is here to follow up on ear irrigation. Wall Washer Required: No Facilities Maintenance Supervisor: Not Required per policy Accompanied by: Self / Same As Patient Allergies Penicillins [PCN] Allergy (Unknown, Verified 03/17/24 10:14) UNKNOWN- RXN CHILD/? HIVES Tobacco use date assessed: 03/17/24 Fall risk assessment: No Falls in past year Last assessed Fall Risk: 03/17/24 Dental Screening Dental Screen Date: 03/16/24 HPI Ear Irrigation HPI Details The patient is a 69-year-old male presenting with impacted cerumen. The patient reported a history of significant earwax buildup, which was previously treated through ear cleaning at our facility a long time ago. The patient admitted missing a follow-up appointment to address the issue. During the current visit, the patient noted difficulties with hearing, which have been ongoing since the last cleaning. He described the extraction of wax as relieving and was amazed by the amount removed. The patient did not report pain but mentioned a sensation leading to a slight cough during manipulation. He ind icated that the problem has sometimes exacerbated post-shower by dislodging darker wax. The patient is currently on anticoagulant therapy, complicating the potential for aggressive ear cleaning due to bleeding risks. No complaints of dizziness were noted during the conversation, although a general sense of improved hearing was observed post removal. The patient acknowledged genetic predispositions to this condition, mentioning a familial history with his grandfather experiencing similar issues. [facility] Medical History Restless legs syndrome (RLS) Neuropathy Current use of anticoagulant therapy COVID-19 virus infection Post covid-19 condition, unspecified Hospital discharge follow-up Persistent atrial fibrillation On methotrexate therapy Cor pulmonale (chronic) Insomnia Hemothorax Vitamin D deficiency Right renal stone Peripheral vascular disease GERD (gastroesophageal reflux disease) Impaired glucose tolerance Hypercholesterolemia Hypertension Atrial fibrillation Severe obstructive sleep apnea Primary osteoarthritis of knees, bilateral 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 Mother Rheumatoid arteritis Sister Breast cancer Other Mental health disorder Substance use disorder Social History Household Members: Significant Other Housing: Apartment Do you presently have visiting nurse or other home services: No Alcohol intake: former Patient Tobacco Use Status: Former Tobacco user Tobacco use type: Cigarette Years Smoked: 49 e-Cigarette/Vaping Use: Never Used Second Hand Smoke Exposure: Yes Substance Use Type: Marijuana service: No Current occupational status: retired Cognitive needs: No Hearing needs: No Vision needs: Yes Questionnaire Thrive Questionnaire Date Thrive assessed: 03/16/24 MARELY-7 AMB Questionnaire MARELY-7 Date MARELY - 7 assessed: 03/16/24 Source: Developed by Drs. Zachary Epps, Aleta Stone, Chaparro Nation and colleagues, with an educational anastacio from [employer]. Physical exam (Primary Care) Vital Signs: Last Vital Signs Temp 97.1 F 03/17/24 10:14 Pulse 72 03/17/24 10:14 BP 136/74 03/17/24 10:14 Pulse Ox 96 03/17/24 10:14 Oxygen Delivery Method Room Air 03/17/24 10:14 BMI result Body Mass Index 34.3 Tobacco/Smoking Status: Tobacco use Status Tobacco use date assessed 03/17/24 03/17/24 10:18 Patient Tobacco Use Status Former Tobacco user 03/17/24 10:18 Tobacco use type Cigarette 03/17/24 10:18 e-Cigarette/Vaping Use Never Used 03/17/24 10:18 Thrive Assessment: Date of Thrive Assessment Date Thrive assessed 03/16/24 03/17/24 10:18 HENMT Other: impacted cerumen bilateral Office Procedures Cerumen Removal From which ear canal was the cerumen removed: bilateral Removal: irrigation, otoscope w/curette, cerumen loop/spoon and other Notes: patient tolerated procedure well, no complications and ear canal clear [id number] Irrigation/Lavage Coding Level of Care Code Est Pt Level 3 (52868) Diagnoses Impacted cerumen of both ears H61.23 CPT Codes Office Procedure - CPT: 46986-Wwi Irrigation/Lavage ([id number]) Assessment & Plan Assessment & Plan (1) Impacted cerumen of both ears: Code(s): H61.23 - Impacted cerumen, bilateral Category: Medical Plan: irrigation and scoop used TM intact Plan - Advise regular follow-up for ear examinations to prevent excessive buildup and maintain auditory health. - Gentle cerumen removal conducted during the visit with irrigation to clear accumulated wax. - Emphasize on monitoring ear health due to the patient?s anticoagulant therapy, ensuring significant wax impaction is timely addressed to prevent auditory obstruction. - Discuss maintenance strategies for cerumen management, including the possible use of wax-softening drops and indication for professional cleaning to prevent escalation of impaction. - Inform the patient about familial tendencies and reinforce proactive management to avoid complications.
[2024-03-17 10:14] VITALS: BP 136/74; PULSE 72; TEMP 36.2; O2SAT 96; BMI 34.3
== END 2024-03-17 12:13 | disposition home or self-care (01) ==
PROVIDERS: PCP Internal Medicine; Visit Provider Internal Medicine
DX: H61.23 Impacted cerumen, bilateral (principal)

== ENCOUNTER → 2024-03-17 09:54 | Outpatient (BNVA) | payer MEDICARE, SELFPAY | PROVIDERS: PCP Internal Medicine; Visit Provider Internal Medicine | DX: H61.23 Impacted cerumen, bilateral (principal) | CPT/HCPCS: 69210; 99212 ==

== ENCOUNTER → 2024-03-29 09:31 | Outpatient (BNVA) | payer MEDICARE, SELFPAY | PROVIDERS: PCP Internal Medicine; Visit Provider Internal Medicine ==

== ENCOUNTER → 2024-04-05 11:24 | Outpatient (BNVA) | payer MEDICARE, SELFPAY | PROVIDERS: PCP Internal Medicine; Visit Provider Internal Medicine ==

== ENCOUNTER → 2024-04-12 10:28 | Outpatient (BNVA) | payer MEDICARE, SELFPAY | PROVIDERS: PCP Internal Medicine; Visit Provider Internal Medicine ==

== ENCOUNTER → 2024-04-19 09:44 | Outpatient (BNVA) | payer MEDICARE, SELFPAY | PROVIDERS: PCP Internal Medicine; Visit Provider Internal Medicine ==

== ENCOUNTER → 2024-05-03 09:28 | Outpatient (BNVA) | payer MEDICARE, SELFPAY | PROVIDERS: PCP Internal Medicine; Visit Provider Internal Medicine ==

== ENCOUNTER → 2024-05-10 13:04 | Outpatient (BNVA) | payer MEDICARE, SELFPAY | PROVIDERS: PCP Internal Medicine; Visit Provider Internal Medicine ==

== ENCOUNTER → 2024-05-17 10:27 | Outpatient (BNVA) | payer MEDICARE, SELFPAY | PROVIDERS: PCP Internal Medicine; Visit Provider Internal Medicine Medical Oncology ==

== ENCOUNTER → 2024-05-24 13:46 | Outpatient (BNVA) | payer MEDICARE, SELFPAY | PROVIDERS: PCP Internal Medicine; Visit Provider Internal Medicine ==

== ENCOUNTER → 2024-06-07 13:48 | Outpatient (BNVA) | payer MEDICARE, SELFPAY | PROVIDERS: PCP Internal Medicine; Visit Provider Internal Medicine Medical Oncology ==

== ENCOUNTER 2024-06-14 08:38 | Outpatient (AMB) | payer MEDICARE, SELFPAY ==
[2024-06-14 08:56] VITALS: BP 148/68; PULSE 75; O2SAT 96; BMI 34.3
--- NOTE | 2024-06-14 08:56 | A.OFFPC_ITS ---
Vital Signs 06/14/24 08:56 Height 6 ft 2 in Weight 267 lb BMI 34.3 BP 148/68 H Blood Pressure Location Lt brachial Position Sitting Pulse 75 Pulse Source Pulse Oximeter Pulse Oximetry (%) 96 Oxygen Delivery Method Room Air Intake Visit Reasons: A fib Intake Note: Patients INR today was 3.0. Allergies Penicillins [PCN] Allergy (Unknown, Verified 06/14/24 08:57) UNKNOWN- RXN CHILD/? HIVES Medication List - Last Reconciled 06/14/24 by Los Jacques MD acetaminophen 650 mg PO Q6H PRN albuterol sulfate 90 mcg/actuation 2 puffs inhalation Q4-6H PRN 3 months ascorbic acid (vitamin C) 1,000 mg PO DAILY bumetanide 2 mg PO BID cholecalciferol (vitamin D3) 25 mcg PO DAILY compr.stocking,knee,long,large As directed 20-30 mm HG [CPAP As directed] diltiazem HCl CD 180 mg PO DAILY hydroxychloroquine 200 mg PO BID ipratropium-albuterol 0.5 mg-3 mg(2.5 mg base)/3 mL 3 mL inhalation Q4-6H PRN 30 days lisinopril 5 mg PO DAILY mecobalamin (vitamin B12) 1,000 mcg PO DAILY omeprazole 20 mg PO DAILY pravastatin 20 mg PO DAILY Trelegy Ellipta 200-62.5-25 mcg (ahrrwswkmmj-xspoahncd-sgizuhzg) 1 ea PO DAILY NS warfarin 5 mg See Protocol PO DAILY Tobacco use date assessed: 03/17/24 Fall risk assessment: No Falls in past year Last assessed Fall Risk: 06/14/24 Dental Screening Dental Screen Date: 03/16/24 [facility] Medical History (Updated 06/14/24 @ 09:16 by Los Jacques MD) COPD (chronic obstructive pulmonary disease) Restless legs syndrome (RLS) Neuropathy Current use of anticoagulant therapy COVID-19 virus infection Post covid-19 condition, unspecified Hospital discharge follow-up Persistent atrial fibrillation On methotrexate therapy Cor pulmonale (chronic) Insomnia Hemothorax Vitamin D deficiency Right renal stone Peripheral vascular disease GERD (gastroesophageal reflux disease) Impaired glucose tolerance Hypercholesterolemia Hypertension Atrial fibrillation Severe obstructive sleep apnea 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 Mother Rheumatoid arteritis Sister Breast cancer Other Mental health disorder Substance use disorder Social History Household Members: Significant Other Housing: Apartment Do you presently have visiting nurse or other home services: No Alcohol intake: former Patient Tobacco Use Status: Former Tobacco user Tobacco use type: Cigarette Years Smoked: 49 e-Cigarette/Vaping Use: Never Used Second Hand Smoke Exposure: Yes Substance Use Type: Marijuana service: No Current occupational status: retired Cognitive needs: No Hearing needs: No Vision needs: Yes Questionnaire PHQ-9 Over the last 2 weeks, how often have you been bothered by any of the following problems? 1. Little interest or pleasure in doing things: several days 2. Feeling down, depressed, or hopeless: several days 3. Trouble falling or staying asleep, or sleeping too much: not at all 4. Feeling tired or having little energy: not at all 5. Poor appetite or overeating: not at all 6. Feeling bad about yourself - or that you are a failure or have let yourself or your family down: not at all 7. Trouble concentrating on things, such as reading the newspaper or watching television: not at all 8. Moving or speaking so slowly that other people could have noticed. Or the opposite - being so fidgety or restless that you have been moving around a lot more than usual: not at all 9. Thoughts that you would be better off or of hurting yourself in some way: not at all Total score: 2 Depression Screening Interpretation: Negative Depression Screening Done: Yes 45590 - PHQ-9 Billing: Yes Source: Developed by Drs. Zachary Epps, Aleta Stone, Chaparro Nation and colleagues, with an educational anastacio from [employer]. Thrive Questionnaire Date Thrive assessed: 03/16/24 AUDIT C Alcohol Use Questionnaire (AUDIT-C) 1. How often do you have a drink containing alcohol?: 2-3 times a week 2. How many drinks containing alcohol do you have on a typical day when you are drinking?: 3 or 4 3. How often do you have six or more drinks on one occasion?: Never Total Score: 4 MARELY-7 AMB Questionnaire MARELY-7 Date MARELY - 7 assessed: 03/16/24 Source: Developed by Drs. Zachary Epps, Aleta Stone, Chaparro Nation and colleagues, with an educational anastacio from [employer]. Physical exam (Primary Care) Vital Signs: Last Vital Signs Pulse 75 06/14/24 08:56 BP 148/68 H 06/14/24 08:56 Pulse Ox 96 06/14/24 08:56 Oxygen Delivery Method Room Air 06/14/24 08:56 BMI result Body Mass Index 34.3 Tobacco/Smoking Status: Tobacco use Status Tobacco use date assessed 03/17/24 06/14/24 09:07 Patient Tobacco Use Status Former Tobacco user 06/14/24 09:07 Tobacco use type Cigarette 06/14/24 09:07 e-Cigarette/Vaping Use Never Used 06/14/24 09:07 PHQ-9: PHQ-9 Score PHQ-9: Total score 2 06/14/24 09:22 Depression Screening Interpretation: Negative Thrive Assessment: Date of Thrive Assessment Date Thrive assessed 03/16/24 06/14/24 09:07 Const General: alert; No acute distress Eyes Conjunctivae: conjunctivae normal Resp Auscultation: clear to auscultation bilaterally Cardio Rate: regular rate Rhythm: regular rhythm GI Inspection: Yes normal to inspection Extrem General: Yes normal to inspection and No edema Results AMB INR Fingerstick AMB INR Fingerstick 3.0 Last Edit by Kenyetta Salamanca RN on 06/14/24 08:56 Coding Level of Care Code Est Pt Level 4 (59978) Complex EM visit Add On G2211 Diagnoses Severe obstructive sleep apnea G47.33 Hypercholesterolemia E78.00 Impaired glucose tolerance R73.02 Moderate COPD (chronic obstructive pulmonary disease) J44.9 Seronegative rheumatoid arthritis M06.00 Persistent atrial fibrillation I48.19 Additional Codes PHQ-9 - 58204 - PHQ-9 Billing: Yes ([id number]) Assessment & Plan Assessment & Plan (1) Severe obstructive sleep apnea: Comment: CPAP use Code(s): G47.33 - Obstructive sleep apnea (adult) (pediatric) Category: Medical Plan: Continue to use the CPAP more than 4 hours a night and benefits from this. (2) Hypercholesterolemia: Code(s): E78.00 - Pure hypercholesterolemia, unspecified Category: Medical Plan: Patient needs a new cholesterol testing. Avoid fried foods, chicken skin, eggs, butter margarine, pastries and meat. Be it pork or beef they have a lot of cholesterol (3) Impaired glucose tolerance: Code(s): R73.02 - Impaired glucose tolerance (oral) Category: Medical Plan: Decrease the amount of carbohydrate intake, pasta, bread, rice and potatoes are all sugar and that is aside from all the sweet stuff, remember that fruits are good but they are Sweet also. (4) Moderate COPD (chronic obstructive pulmonary disease): Code(s): J44.9 - Chronic obstructive pulmonary disease, unspecified Category: Medical Plan: Continue to use the inhalers (5) Seronegative rheumatoid arthritis: Comment: Methotrexate- 2017- January 2022, discontinued due to right lower extremity cellulitis Humira 2019-January 2022, discontinued due to right lower extremity cellulitis Prednisone- off since October 2019 HCQ 10/21 effective Code(s): M06.00 - Rheumatoid arthritis without rheumatoid factor, unspecified site Category: Medical Plan: Patient is advised to continue follow-up with Rheumatology (6) Persistent atrial fibrillation: Code(s): I48.19 - Other persistent atrial fibrillation Category: Medical Plan: Continue with anticoagulation Plan History of Present Illness The patient is a 69-year-old male presenting with a follow-up for multiple chronic conditions. He consistently uses CPAP therapy for obstructive sleep apnea and benefits from it. His LDL cholesterol was documented at 118 mg/dL in March 2023, and he exhibits hypercholesterolemia. The patient has a history of impaired glucose tolerance and peripheral vascular disease, including a past episode of right leg DVT. He has rheumatoid arthritis managed with hydroxychloroquine and a history of atrial fibrillation. The patient has severe hammer toe contractures on the 4th and 5th toes of the left foot, verified via x-ray, without any surgical interventions on that foot. The condition causes discomfort but is currently under evaluation. He previously received surgeries on the right foot, which resolved earlier foot issues, including ulcers. The patient's recent lab work was largely unremarkable with normal renal function and electrolytes, and the liver function tests were satisfactory. Although he managed to participate in a [employer] parade, it highlighted the demand for maintaining physical activity levels. His COPD management includes Trelegy with proper after-use rinsing, and albuterol is used infrequently due to climate variation. Health Maintenance - Discussion of cholesterol monitoring with recommendation for upcoming testing. - Addressed history of ulcers and foot care through podiatry. - Commitment to achieving personal exercise goals to maintain functional mobil ity. - Consideration of RSV vaccination later this year as additional preventative measure. Social History - Participates in community activities, e.g., [employer] parade, indicating some level of physical and social engagement. - Work to improve physical stamina with intentions to include more hills in walking routines due to previous challenges during a recent parade participation. - Regular use of CPAP machine. Review of Systems - Respiratory: Denies daily use of albuterol except as needed, associated with weather changes. Reports using Trelegy daily with precautionary mouth rinse. - Cardiovascular: Denies exacerbations or new symptoms, no ongoing issues post DVT resolution. - Musculoskeletal: Reports discomfort related to hammer toe contractures, no recent surgeries on left foot, resolved issues on the right foot. - General: Reports achieving personal physical goals, specifically regarding participation in public parades. - Endocrine: Denies specific issues, aware of impaired glucose levels managed through routine monitoring. Physical Exam Results - Labs: Last blood work (February 01) showed normal renal function, liver function, blood count, and electrolytes. LDL cholesterol was 118 mg/dL in March 2023. - Diagnostics: Recent x-ray confirms severe hammer toe contractures on the 4th and 5th toes of the left foot. Plan The use of CPAP therapy remains beneficial for obstructive sleep apnea, and I will continue to monitor the patient's adherence to this treatment. For hypercholesterolemia, we plan to conduct a new cholesterol test as the most recent LDL level was 118 mg/dL. The patient's rheumatoid arthritis management with hydroxychloroquine is stable, with no changes required at this time. Continuing to monitor his history of DVT and peripheral vascular disease remains important, though the patient reports good resolution of these issues. For COPD management, we will maintain the current regimen of Trelegy with proper usage precautions in place; albuterol will be utilized as needed due to weather- induced factors. With the patient?s hammer toe issue, I will continue to evaluate through podiatry care to discuss any required future interventions. I advised the patient to enhance physical activity levels according to his recent participation in a physical event, suggesting slight modifications in his walking routine to build up endurance. Consideration of RSV vaccination for later in the year is advised, with bloodwork and prostate screening to be arranged to coincide with rheumatology evaluations. Patient was informed and verbally consented to the use of an ambient scribe for clinic note documentation during this visit. Discussion Notes I engaged the patient in a detailed discussion regarding the ongoing management of his chronic conditions. We reviewed the importance of CPAP therapy adherence for obstructive sleep apnea, with emphasis placed on the positive impact seen thus far. I highlighted the need for a current lipid profile to assess and modify treatment plans for his hypercholesterolemia. There was an agreement to sustain his current treatment for rheumatoid arthritis with hydroxychloroquine, given its effectiveness. I encouraged vigilance in observing any recurrence of DVT symptoms but reinforced the resolution of past occurrences. The patient's COPD management plan will continue, accentuating regular Trelegy use and mouth rinsing. Regarding hammer toe contractures, we agreed to follow up with podiatry to plan for necessary future interventions. I encouraged aerobic activity corresponding to his comfortable physical capacity while gradually challenging his stamina through walking. Upcoming procedural considerations include blood and prostate evaluation aligned with any related rheumatology requirements. We discussed the optional timing of RSV vaccination availability towards year-end. Patient Instructions - Continue CPAP use as advised. - Schedule cholesterol blood test. - Maintain usage of Trelegy for COPD; rinse mouth after inhalation. - Use albuterol if necessary due to weather changes. - Increase physical activity gradually; include mild inclines to build stamina. - Follow-up with podiatry for foot care regarding hammer toes. - Consider RSV vaccination later this year. - Plan for lab and prostate evaluations soon in coordination with rheumatology appointments. Orders: Orders B Type Natriuretic Peptide Today E78.00 - Pure hypercholesterolemia, unspecified Comprehensive Met. Panel Today E78.00 - Pure hypercholesterolemia, unspecified Hemoglobin A1c Today E78.00 - Pure hypercholesterolemia, unspecified Vitamin B12 and Folate Today E78.00 - Pure hypercholesterolemia, unspecified Magnesium Today E78.00 - Pure hypercholesterolemia, unspecified Complete Blood Count Auto Diff Today E78.00 - Pure hypercholesterolemia, unspecified Free T4 (Free Thyroxine) Today E78.00 - Pure hypercholesterolemia, unspecified Thyroid Stimulating Hormone Today E78.00 - Pure hypercholesterolemia, unspecified Prostate Specific Antigen Scr Today E78.00 - Pure hypercholesterolemia, unspecified Lipid Panel Today E78.00 - Pure hypercholesterolemia, unspecified
--- OUTSIDE RECORDS SUMMARY | 2024-06-14 09:00 | XMS_ITS | Patient Health Record ---
[facility] [place] Address [address] [place] [address] Care Team Providers Care Mobile Electronics Installer Name Role Phone Los Jacques Primary Care Provider Paul Ivey Unavailable [phone] Allergies Allergen (clinical drug ingredient) Drug/Non Drug Allergy documented on EMR Reaction Allergy Type Onset Date Status tramadol Tramadol Unknown Drug Allergy Active Reason For Referral No Information Medications Medication SIG (Take, Route, Frequency, Duration) Notes Start Date End Date Status Trelegy Ellipta Acti ve Furosemide Active Antibiotic Not-Takin g dilTIAZem HCl ER Beads 180 MG 1 capsule Orally Once a day for 30 day(s) Active [employer] as directed A ctive D3 Active Office visit . . . .patient is toma smith for pulmonary therapy with guarded activity of feet in special shoe and inserts 03/05/2022 Active B12 Active [employer] as directed A ctive Warfarin Sodium 5 MG 1 tablet Orally Onc e a day for 30 day(s) Active Bactrim DS 800-160 MG 1 tablet Orally ev yoni 12 hrs for 10 day(s) 02/04/2022 Not-Taking Bumetanide 2 MG 1 tablet Orally Once a day for 30 day(s) Active Methotrexate 2.5 MG as directed Orally Not-Taking Omeprazole 20 MG 1 capsule 30 minutes before morning meal Orally Once a day for 30 day(s) Active Humira Pen 40 MG/0.4ML as directed Subcutaneous Not-Taking Lisinopril 5 MG 1 tablet Orally Once a day for 30 day(s) Active Antibiotic 10 days Not-Takin g albuterol Active Folic Acid 1 MG 1 tablet Orally Once a day for 30 day(s) Active Pravastatin Sodium 20 MG 1 tablet Orally Once a day for 30 day(s) Active Anoro Ellipta 62.5-25 MCG/INH 1 puff Inhalation Once a day Not-Taking Immunizations Vaccine Route Administration Date Status Comme nts COVID-19 Pfizer BioNTech Vaccine Unknown 12/16/2021 Administered 1st 06/06/20 4th 06/10/21 2nd 06/27/20 3rd 12/31/20 Social History Tobacco Use: Social History Observation Description Date Details (start date - stop date) Never Smoker NA - NA Tobacco Use/Smoking Question Answer Notes Are you a: nonsmoker Additional Findings: Tobacco Non-User Cu rrent non-smoker, but past smoking history unknown Alcohol Screen Question Answer Notes Did you have a drink contain ing alcohol in the past year? Yes How often did you have a dri nk containing alcohol in the past year? Monthly or less (1 point) Points 1 Interpretation Negative Tobacco use other than smoking: Question Answer Notes Are you an other tobacco user? No Problems Problem Type SNOMED Code ICD Code Onset Dates Problem Status W/U Status Risk Notes Problem Non-pressure chronic ulcer of other part of right foot with fat layer exposed (L97.512) Active confirmed Problem Chronic ulcer of foot (013278959) Non-pressure chronic ulcer of other part of left foot with fat layer exposed (L97.522) Active confirmed Problem Bilateral atherosclerosis of arteries of lower limbs (disorder) (39685205788825902) Unspecified atherosclerosis of [place] arteries of extremities, bilateral legs (I70.203) Active confirmed Problem Acquired hammer toe of right foot (6005310480486890) Other hammer toe(s) (acquired), right foot (M20.41) Active confirmed Problem Acquired hammer toe of left foot (9725023303732475) Other hammer toe(s) (acquired), left foot (M20.42) Active confirmed Problem 050571916 Neuropathy (G62.9) Active confirmed Problem 4624116824630361 Osteomyelitis o f foot, right, acute (M86.171) Active confirmed Problem 5222719698049881 Primary osteoarthritis of right foot (M19.071) Active confirmed Plan Of Treatment Pending Test Test Name Order Date X ray : Foot, left 3V 10/07/2021 X ray : Foot, right 3V 10/07/2021 X ray : Foot, right 3V 07/28/2022 [id number] SKIN/TISSUE 07/28/2022 [id number] SKIN/TISSUE 07/15/2022 [id number] SKIN/TISSUE 02/04/2022 [id number] SKIN/TISSUE 10/07/2021 [id number] SKIN LESIONS, 2 TO 4 10/08/19 [id number] SKIN LESIONS, 2 TO 4 05/14/19 [id number] SKIN LESIONS, 2 TO 4 12/23/19 [id number] OF HEMATOMA/FLUID 022 Insurance Providers Payer Name Payer Address Payer Phone Subscriber Number Group Number Insured Name Patient Relationship to Insured Coverage Start Date Coverage End Date Medicare [employer] [address] [place] [address] [id number] Konrad Ferrera Self - patient is the insured Medical (General) History Medical History History ICD Code Atrial fibrillation Cor pulmonale (chroic) current use of anticoagulant therapy Gerd (Gastroesophageal reflux disease) Hemothorax History of Cardioversion hypercholesterolemia hypertension impaired glucose tolerance 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 moderate COPD ( Chronic Obstructive Pulm onary Disease ) Peripheral Neuropathy Peripheral Vascular Disease persistent atrial fibrillation primary osteoarthritis of knees, bilater al right renal stone seronegative rheumatoid arthritis severe obstructive sleep apnea vitamin D deficiency Anxiety Arthritis asthma Broken bones covid-19 Depression Measles Mumps Chicken pox Hiatal hernia Heart disease Lung disease Numbness Osteoporosis Sciatica Warts Poor circulation Surgical History Surgery Date(Month/Year) umbilical hernia repair tonsillectomy S/P emergency tracheotomy for assistance in breathing right foot surgery 2018 left and right eye implants 11/03/18-11/18 Hospitalization History Reason Date(Month/Year) [facility] - R leg infection/Swelling [address] done 02/05-01/20
--- OUTSIDE RECORDS SUMMARY | 2024-06-14 09:00 | XMS_ITS | Clinical Summary ---
Author Organization 175 [facility] Address [address] [place] [address] Phone Care Team Providers Care Intelligence Clerk Name Role Phone Los Jacques MD Primary Care Provider Allergies Active Allergy Reactions Criticality Noted Date Comments Penicillins 09/03/2022 Medications diclofenac (VOLTAREN) 1 % topical gel Apply 4 g topically 2 times daily. 4 Active mupirocin (BACTROBAN) 2 % ointment Apply topically to wound dialy 4 Active pregabalin (LYRICA) 50 mg capsule Take 1 Capsule by mouth 2 times daily. Active oxyCODONE (ROXICODONE) 5 mg immediate release tablet Take one tablet every 4 hours as needed for pain 3 Active hydroxychloroqu ine (PLAQUENIL) 200 mg tablet Take 1 tablet (200 mg total) by mouth 2 (two) times a day. Active folic acid (FOLVITE) 1 mg tablet Take 1 tablet (1,000 mcg total) by mouth 1 (one) time each day. Active dilTIAZem XR (DILACOR XR) 180 mg 24 hr capsule Take 1 capsule (180 mg total) by mouth 1 (one) time each day. Active omeprazole (PriLOSEC) [address] capsule Take 1 capsule (20 mg total) by mouth 1 (one) time each day. Active warfarin (COUMADIN) 5 mg tablet Take 1 Tablet by mouth See Admin Instructions. May cause heavy bleeding. Take at same time every day. Do not change dietary habits. Active lisinopriL (PRINIVIL,ZESTR IL) 5 mg tablet Take 1 tablet (5 mg total) by mouth 1 (one) time each day. Active bumetanide (BUMEX) 2 mg tablet Take 1 tablet (2 mg total) by mouth 1 (one) time each day. Active pravastatin (PRAVACHOL) 20 mg tablet Take 1 tablet (20 mg total) by mouth 1 (one) time each day. Active albuterol sulfate (ProAir RespiClick) 90 mcg/actuation aerosol powdr breath activated Inhale into the lungs. Active fluticasone-ume clidinium-vilan terol (Trelegy Ellipta) 200-62.5-25 mcg inhaler Inhale into the lungs. Active Encounters Date Type Department Care Team Description 06/06/2024 10:00 AM EDT Office Visit Orthopedic Surgery [address] [phone] Ry Gallagher DPM Hammer toe of left foot (Primary Dx); Follow-up exam; Ulcer of toe of right foot, limited to breakdown of skin ([facility] V24, CMS/[facility] V28); Corns and callosities; Type II diabetes mellitus with peripheral circulatory disorder (CMS/[facility] V24, CMS/HCC V28); Dermatophytosis of nail; Acquired hammer toe of right foot; Pain in toe of right foot; Metatarsalgia of both feet; Diabetic mononeuropathy simplex (CMS/HCC V24, CMS/HCC V28); Pain in toe of left foot; Ulcer of toe of left foot, limited to breakdown of skin (CMS/[facility] V24, CMS/[facility] V28) 04/04/2024 9:30 AM EST Office Visit [facility] [address] [phone] Ry Gallagher DPM Hammer toe of left foot (Primary Dx); Ulcer of toe of left foot, with fat layer exposed (CMS/HCC V24, CMS/HCC V28); Ulcer of toe of right foot, limited to breakdown of skin (CMS/HCC V24, CMS/HCC V28); Corns and callosities; Type II diabetes mellitus with peripheral circulatory disorder (CMS/HCC V24, CMS/HCC V28); Diabetic mononeuropathy simplex (CMS/[facility] V24, [facility] V28); Metatarsalgia of both feet; Pain in toe of right foot; Acquired hammer toe of right foot; Dermatophytosis of nail; Pain in toe of left foot from Last 3 Months Social History Tobacco Use Types Packs/Day Years Used Date Smoking Tobacco: Never Assessed Sex and Gender Information Value Date Recorded Sex Assigned at Not on file Legal Sex Male 6:20 PM EST Gender Identity Not on file Sexual Orientation Not on file Last Filed Vital Signs Vital Sign Reading Time Taken Comments Blood Pressure - - Pulse - - Temperature - - Respiratory Rate - - Oxygen Saturation - - Inhaled Oxygen Concentration - - Weight 122 kg (270 lb) 06/06/2024 10:29 AM EDT Height 190.5 cm (6' 3 ) 04/04/2024 9:23 AM EST Body Mass Index 33.75 04/04/2024 9:23 AM EST Plan of Treatment Upcoming Encounters Date Type Department Care Team (Late st Contact Info) Description 08/08/2024 10:00 AM EDT Office Visit Orthopedic Surgery - [place] [address] [phone] Ry Gallagher, DPM [address] [address] Health Maintenance Due Date Last Done Comments Diabetes: Annual GFR (Glomer ular Filtration Rate) 1955 COVID-19 Vaccine (#1) 02/14/1960 Diabetes: Annual Foot Exam 1965 Diabetes: Annual Retina Eye Exam 1965 DTaP,Tdap,and Td Vaccines (1 - Tdap) 1974 Pneumococcal Vaccine: 50+ Ye ars (1 of 2 - PCV) 1974 Zoster Vaccines (1 of 2) 2005 RSV Immunization Adult Patie nts (1 - Risk 60-74 years 1-dose series) 2015 Abdominal Aortic Aneurysm (A AA) Screen 01/31/2022 Cholesterol Screening (Lipid Panel) 01/31/2022 Colorectal Cancer Screening: Colonoscopy 01/31/2022 Depression Screening 01/31/2022 Falls Risk Assessment 01/31/2022 Hepatitis C Screening 01/31/2022 Medicare Annual Wellness Visit 01/31/2022 Social Influencers of Health Screening 01/31/2022 Diabetes: Annual Urine Albumin-Creatinine Ratio (uACR) 02/02/2024 Diabetes: Blood Sugar Contro l Test (HGBA1C) 02/02/2024 Influenza Vaccine (Season Ended) 2024 10/31/19 21 HIB Vaccines Aged Out No longer eligi ble based on patient's age to complete this topic HPV Vaccines Aged Out No longer eligi ble based on patient's age to complete this topic Hepatitis A Vaccines Aged Out No long er eligible based on patient's age to complete this topic Hepatitis B Vaccines Aged Out No long er eligible based on patient's age to complete this topic IPV Vaccines Aged Out No longer eligi ble based on patient's age to complete this topic MMR Vaccines Aged Out No longer eligi ble based on patient's age to complete this topic Meningococcal ACWY Vaccine Aged Out N o longer eligible based on patient's age to complete this topic Meningococcal B Vaccine Aged Out No l onger eligible based on patient's age to complete this topic RSV Immunization Patients Un maxwell 20 months Aged Out No longer eligible b ased on patient's age to complete this topic Varicella Vaccines Aged Out No longer eligible based on patient's age to complete this topic Procedures Procedure Name Priority Date/Time Associated Diagnosis Comments XR FOOT 3+ VIEWS BILAT Routine 06/06/2024 10:28 AM EDT Follow-up exam from Last 3 Months Results * XR Foot 3+ Views bilat (06/06/2024 10:28 AM EDT) Anatomical Region Laterality Modality Lower Extremities, Foot Bilateral Computed Radiography Narrative 06/06/2024 12:16 PM EDT Left foot 3 views Severe hammertoe contractures 2 through 5 Osteoarthritic changes noted Foot position Pes planus with Talus navicular uncovering decreased calcaneal inclination anterior displaced symes line talus navicular joint to calcaneal cuboid joint ?? Right foot 3 views Severe hammertoe contractures of the fourth and fifth previous surgery of third metatarsal without acute changes Foot position Pes planus with Talus navicular uncovering decreased calcaneal inclination anterior displaced symes line talus navicular joint to calcaneal cuboid joint ?? us Ry Gallagher DPM IMG XR PROCEDURES Final R esult from Last 3 Months Insurance MEDICARE Care Teams Intelligence Clerk Relationship Specialty Start Date End Date Los Jacques MD [address] [place] [address] [address] [facility] [place] [address] PCP - General 10/24/21
--- OUTSIDE RECORDS SUMMARY | 2024-06-14 09:00 | XMS_ITS | Continuity of Care Document ---
Author Organization [facility] Address [address] [place] [address] Dr [address] [place] [phone] Phone Care Team Providers Care Spraying Machine Operator Name Role Phone Mesha Bell MD, FACS, RVT Unavailable Unavailable Procedures Procedure Date 11-20 Min Medical Discussion On Phone - Telemedicine Advance Directives Directive Yes / No Effective Date File Name No Information Encounters Encounter Description Practice Location Reason(s) For Visit Diagnoses Date Provider Providers Copied on Encounter [facility], [address] [place] [address] [address], [id number], [place] tel:[phone] [facility] No Information 3 Chun Perez. [address] [place] [address], [address], [place]. tel:[phone] Referring Provider: Sky Hector IV, MD , [address] [place] [address], [address]. tel:[phone] 11-20 Min Medical Discussion On Phone - Telemedicine [facility], [address] [place] [address] [address] [place], [id number], [place] tel:[phone] [facility] Ven[facility] insufficiency (chronic) (peripheral) 3 Chun Perez. [address] [place] [address], [address], [place]. tel:[phone] Referring Provider: Sky Augustin, [address] [place] [address] [place], [address]. tel:[phone] Family History Family Member Type Diagnosis Age At Onset No Information Payers Payer name Insurance type Covered democrat ID Authoriza tion(s) [place] [id number] [place] [id number] Social History Type Description Quantity Date Captured [...]
--- OUTSIDE RECORDS SUMMARY | 2024-06-14 09:00 | XMS_ITS | Patient Health Record ---
Author Organization [facility] Address [address] [place] [address] Care Team Providers Care Newspaper Press Operator Apprentice Name Role Phone Los Jacques MD Primary Care Provider Zachary Zamorano Unavailable [phone] Allergies Allergen (clinical drug ingredient) Drug/Non Drug Allergy documented on EMR Reaction Allergy Type Onset Date Status Penicillin Unknown Drug Allergy Active Reason For Referral No Information Medications Medication SIG (Take, Route, Frequency, Duration) Notes Start Date End Date Status Folic Acid 1 MG 3 tablets Orally Onc e a day Active Vitamin B12 Active Anoro Ellipta 62.5-25 MCG/INH INHALE 1 PUFF BY MOUTH ONCE DAILY Inhalation for 90 Active Warfarin Sodium 5 MG TAKE 1 TABLET BY [facility] DAILY PER PROTOCOL. TAKE ADDITIONAL TABLET DIRECTED BY THE [facility] Oral as directed Active Vitamin C Active Vitamin D3 Active dilTIAZem HCl ER Coated Beads 180 MG TAKE 1 CAPSULE BY MOUTH ONCE DAILY Oral for 90 Active Pravastatin Sodium 20 MG Oral for 90 Active Humira Pen 40 MG/0.4ML Subcutaneous for 30 Active Methotrexate Sodium 2.5 MG Oral for 28 Active Omeprazole 20 MG 1 capsule Orally Onc e a day Active Ventolin HFA 108 (90 Base) MCG/ACT 2 puffs as needed Inhalation every 4 hrs Active Lisinopril 5 MG 1 tablet Orally Once a day Active Bumetanide 2 MG 1 tablet Orally twic e a day Active Immunizations Vaccine Route Administration Date Status Comme nts Influenza Unknown 10/30/2020 Administered Problems Problem Type SNOMED Code ICD Code Onset Dates Problem Status W/U Status Risk Notes Problem 026598699 Encounter for screening for malignant neoplasm of colon (Z12.11) Active confirmed Problem History of adenomatous polyp of colon (356413548) History of adenomatous polyp of colon (Z86.010) Active confirmed Problem Screening for malignant neoplasm of rectum (353353432) Encounter for screening for malignant neoplasm of rectum (Z12.12) Active confirmed Problem History of polyp of colon (086020809) History of colon polyps (Z86.010) Active confirmed Problem 993132134 Gastroesophageal reflux disease, esophagitis presence not specified (K21.9) Active confirmed Problem 72539023 Pharyngoesophage al dysphagia (R13.14) Active confirmed Problem Diverticulosis of colon (510304816) Diverticulosis of colon (K57.30) Active confirmed Plan Of Treatment Future Test Test Name Order Date UPPER GI ENDOSCOPY 07/30/2015 COLONOSCOPY 07/30/2015 UPPER GI ENDOSCOPY BALLOOON DILATION OF ESOPH 05/05/2016 COLONOSCOPY 05/05/2016 COLONOSCOPY 09/16/2021 Insurance Providers Payer Name Payer Address Payer Phone Subscriber Number Group Number Insured Name Patient Relationship to Insured Coverage Start Date Coverage End Date MEDICARE OF [place] [address] [place] [address] [phone] [id number] SEJAL IRAHETA Self - patient is the insured MEDICAID OF [facility] [employer] [address] [place] [address] [id number] SEJAL IRAHETA Self - patient is the insured Medical (General) History Medical History History ICD Code HTN A.fib--seeing Hematoma in left side of rib s in relation to coughing--rib injury and a pleural effusion. Denies NM,DM,CVA,renal disease GERD Sleep apnea--uses CPAP Right leg injury, infection 03/2015 COPD/asthma Rheumatoid arthritis and Osteoarthritis EGD 07/2016--minimal hiatal h ernia, but no evidence of any esophagitis or Noriega's esophagus; there was no esophageal stricture nor ring, but I did use a balloon of 19 mm to dilate the gastroesophageal junction Screening Colonoscopy 07/2016 -one small tubular adenoma removed and several hyperplastic polyps removed COVID 01/2021-in [facility] for 17 days Surgical History Surgery Date(Month/Year) Tracheostomy at age 3 2 hammer toes /infection bottom of right foot Hernia repair-umbilical
== END 2024-06-14 09:43 | disposition home or self-care (01) ==
LOC: HO.HMCH 08:39
PROVIDERS: PCP Internal Medicine; Visit Provider Internal Medicine
DX: G47.33 Obstructive sleep apnea (adult) (pediatric) (principal); M06.00 Rheumatoid arthritis without rheumatoid factor, unspecified site; J44.9 Chronic obstructive pulmonary disease, unspecified; I48.19 Other persistent atrial fibrillation; E78.00 Pure hypercholesterolemia, unspecified; R73.02 Impaired glucose tolerance (oral)

== ENCOUNTER → 2024-06-14 08:38 | Outpatient (BNVA) | payer MEDICARE, SELFPAY | PROVIDERS: PCP Internal Medicine; Visit Provider Internal Medicine | DX: I48.19 Other persistent atrial fibrillation (principal); G47.33 Obstructive sleep apnea (adult) (pediatric); E78.00 Pure hypercholesterolemia, unspecified; R73.02 Impaired glucose tolerance (oral); J44.9 Chronic obstructive pulmonary disease, unspecified; M06.00 Rheumatoid arthritis without rheumatoid factor, unspecified site; Z79.01 Long term (current) use of anticoagulants; Z99.89 Dependence on other enabling machines and devices | CPT/HCPCS: 96127; 99212 ==

== ENCOUNTER → 2024-06-21 11:36 | Outpatient (BNVA) | payer MEDICARE, SELFPAY | PROVIDERS: PCP Internal Medicine; Visit Provider Internal Medicine Medical Oncology ==

== ENCOUNTER 2024-06-22 14:23 | Outpatient (AMB) | payer MEDICARE, SELFPAY ==
[2024-06-22 14:27] VITALS: BP 138/62; PULSE 71; O2SAT 95; BMI 34.1
--- NOTE | 2024-06-22 14:27 | A.OFFVIS_ITS ---
Vital Signs 06/22/24 14:27 Height 6 ft 2 in Weight 266 lb BMI 34.1 BP 138/62 Blood Pressure Location Rt brachial Position Sitting Pulse 71 Pulse Source Doppler Pulse Oximetry (%) 95 Oxygen Delivery Method Room Air Intake Visit Reasons: copd Allergies Penicillins [PCN] Allergy (Unknown, Verified 06/22/24 14:36) UNKNOWN- RXN CHILD/? HIVES HPI HPI copd: Details: 69-year-old gentleman, former 40+ pack-year smoker, quit 2017 with underlying history of AFib on anticoagulation, heart failure, long-term methotrexate use, COPD, prior admission for COVID-19 discharged on supplemental oxygen at 6 L with exertion and 2 L at night, no longer on oxygen, followed for moderate COPD, severe obstructive sleep apnea, pulmonary nodules, and dyspnea on exertion. He has been using Trelegy and up to twice a day bumetanide 2 mg with reasonable control of his symptoms. Patient continues on CPAP with good control of his underlying symptoms. He denies recent exacerbations. [place] [place] [facility] [facility] Medical History (Updated 06/22/24 @ 14:43 by Tyler Masters MD) COPD (chronic obstructive pulmonary disease) Restless legs syndrome (RLS) Neuropathy Current use of anticoagulant therapy COVID-19 virus infection Post covid-19 condition, unspecified Hospital discharge follow-up Persistent atrial fibrillation On methotrexate therapy Cor pulmonale (chronic) Insomnia Hemothorax Vitamin D deficiency Right renal stone Peripheral vascular disease GERD (gastroesophageal reflux disease) Impaired glucose tolerance Hypercholesterolemia Hypertension Atrial fibrillation Severe obstructive sleep apnea Primary osteoarthritis of knees, bilateral 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 Mother Rheumatoid arteritis Sister Breast cancer Other Mental health disorder Substance use disorder Social History Household Members: Significant Other Housing: Apartment Do you presently have visiting nurse or other home services: No Alcohol intake: former Patient Tobacco Use Status: Former Tobacco user Tobacco use type: Cigarette Years Smoked: 49 e-Cigarette/Vaping Use: Never Used Second Hand Smoke Exposure: Yes Substance Use Type: Marijuana service: No Current occupational status: retired Cognitive needs: No Hearing needs: No Vision needs: Yes Review of Systems Const Denies daytime sleepiness, Denies excessive sweating, Denies fatigue, Denies fever(s), Denies lethargy, Denies malaise, Denies night sweats, Denies snoring and Denies weight loss Eyes Denies blurry vision and Denies itchy eyes ENT Denies nasal congestion, Denies post nasal drip, Denies sinus pain, Denies sinus pressure and Denies other ( Thrush) Card Denies chest pain, Denies pedal edema, Denies dyspnea, Denies orthopnea and Denies paroxysmal nocturnal dyspnea Resp Denies cough, Denies hemoptysis, Denies excessive phlegm production, Denies dyspnea, Denies snoring and Denies wheezing GI Denies abdominal pain and Denies heartburn Musc Denies myalgias, Denies arthralgias and Denies joint swelling Skin/Breast Denies rash Neuro Denies memory loss and Denies seizure-like activity Psych Denies abnormal sleep pattern, Denies anxiety and Denies memory loss Endo Denies excessive sweating, Denies fatigue and Denies heat intolerance Augie/Lymph Denies easy bruising Aller/Immun Denies itchy eyes, Denies seasonal rhinorrhea and Denies wheezing Physical Exam Vital Signs: Last Vital Signs Pulse 71 06/22/24 14:27 BP 138/62 06/22/24 14:27 Pulse Ox 95 06/22/24 14:27 Oxygen Delivery Method Room Air 06/22/24 14:27 BMI result Body Mass Index 34.1 Const General: no acute distress and alert Nutritional Appearance: obese Orientation/consciousness: Other orientation findings ( oriented) HEENT Head: Yes atraumatic Eyes General: appearance normal, both eyes and all related structures Sclerae: sclerae normal EOM: EOMs intact bilaterally Neck Neck: Yes supple Lymphatic: no lymphadenopathy noted Resp Effort & Inspection: normal respiratory effort and no use of accessory muscles Auscultation: clear to auscultation bilaterally Cardio Rate: regular rate Rhythm: regular rhythm Heart sounds: no gallops, no murmurs and no rubs Skin General skin exam: other ( warm) Extrem General: No clubbing, No cyanosis and Yes edema (Trace bilateral) Assessment & Plan Assessment & Plan (1) Moderate COPD (chronic obstructive pulmonary disease): Code(s): J44.9 - Chronic obstructive pulmonary disease, unspecified Category: Medical Plan: Now well controlled on Trelegy, duo nebs, and albuterol MDI. Continue current regimen. (2) Severe obstructive sleep apnea: Comment: CPAP use Code(s): G47.33 - Obstructive sleep apnea (adult) (pediatric) Category: Medical Plan: Well controlled current CPAP therapy. Continue CPAP therapy. Therapy and compliance report reviewed - patient is benefitting from and is compliant with noninvasive positive pressure ventilation treatment, using it greater than 70% of the time, more than 4 hours per night. (3) Lower extremity edema: Code(s): R60.0 - Localized edema Category: Medical Plan: Well controlled on current diuretic regimen. Continue bumetanide 2 mg 1-2 twice a day day. (4) Personal history of nicotine dependence: Code(s): Z87.891 - Personal history of nicotine dependence Category: Medical Plan: Continue lung cancer screening. CT chest ordered. Orders: Orders CT lung screening Today Z87.891 - Personal history of nicotine dependence Coding Level of Care Code Est Pt Level 4 (95620) Complex EM visit Add On G2211 Diagnoses Moderate COPD (chronic obstructive pulmonary disease) J44.9 Severe obstructive sleep apnea G47.33 Lower extremity edema R60.0 Personal history of nicotine dependence Z87.891
--- OUTSIDE RECORDS SUMMARY | 2024-06-22 16:58 | XMS_ITS | Patient Health Record ---
Author [facility] [place] Address [address] [place] [address] Care Team Providers Care Jig Bore Operator Name Role Phone Los Jacques Primary Care Provider Paul Ivey Unavailable [phone] Allergies Allergen (clinical drug ingredient) Drug/Non Drug [...] Active confirmed Problem Chronic ulcer of foot (821481580) Non-pressure chronic ulcer of other part of left foot with fat layer exposed (L97.522) Active confirmed Problem Bilateral atherosclerosis of arteries of lower limbs (disorder) (48799338615828428) Unspecified atherosclerosis of [place] arteries of extremities, bilateral legs (I70.203) Active confirmed Problem Acquired hammer toe of right foot (4026015887096900) Other hammer toe(s) (acquired), right foot (M20.41) Active confirmed Problem Acquired hammer toe of left foot (7934269672278462) Other hammer toe(s) (acquired), left foot (M20.42) Active confirmed Problem 532886254 Neuropathy (G62.9) Active confirmed Problem 3911048347138583 Osteomyelitis o f foot, right, acute (M86.171) Active confirmed Problem 7669977594770667 Primary osteoarthritis of right foot (M19.071) Active confirmed Plan Of Treatment Pending Test Test Name Order Date X ray : Foot, left 3V 10/07/2021 X ray : Foot, right 3V 10/07/2021 X ray : Foot, right 3V 07/28/2022 [id number] SKIN/TISSUE 07/28/2022 [id number] SKIN/TISSUE 07/15/2022 [id number] SKIN/TISSUE 02/04/2022 [id number] SKIN/TISSUE 10/07/2021 [id number] SKIN LESIONS, 2 TO 4 10/08/19 [id number] SKIN LESIONS, 2 TO 4 05/14/19 [id number] SKIN LESIONS, 2 TO 4 12/23/19 [id number] OF HEMATOMA/FLUID 022 Insurance Providers Payer Name Payer Address Payer Phone Subscriber Number Group Number Insured Name Patient Relationship to Insured Coverage Start Date Coverage End Date Medicare National [employer] [address] [place] [address] [id number] Konrad Ferrera Self - patient is the insured Medical (General) History Medical History History ICD Code Atrial fibrillation Cor pulmonale (chroic) current use of anticoagulant therapy Gerd (Gastroesophageal reflux disease) Hemothorax History of Cardioversion hypercholesterolemia hypertension impaired glucose tolerance insomnia 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
--- OUTSIDE RECORDS SUMMARY | 2024-06-22 16:58 | XMS_ITS | Clinical Summary ---
Author Organization 175 [facility] Address [address] [place] [address] Phone Care Team Providers Care Ocean Clam Boat Captain Name Role Phone Los Jacques MD Primary Care Provider [phone] Allergies Active Allergy Reactions Criticality Noted Date [...] 10:00 AM EDT Office Visit Orthopedic Surgery [address] [phone] Ry Gallagher DPM Hammer toe of left foot (Primary Dx); Follow-up exam; Ulcer of toe of right foot, limited to breakdown of skin ([facility] V24, CMS/[facility] V28); Corns and callosities; Type II diabetes mellitus with peripheral circulatory disorder (CMS/[facility] V24, CMS/HCC V28); Dermatophytosis of nail; Acquired hammer toe of right foot; Pain in toe of right foot; Metatarsalgia of both feet; Diabetic mononeuropathy simplex (CMS/HCC V24, CMS/HCC V28); Pain in toe of left foot; Ulcer of toe of left foot, limited to breakdown of skin (CMS/[facility] V24, CMS/[facility] V28) 04/04/2024 9:30 AM EST Office Visit Orthopedic [facility] [address] [phone] Ry Gallagher DPM Hammer toe of left foot (Primary Dx); Ulcer of toe of left foot, with fat layer exposed (CMS/HCC V24, CMS/HCC V28); Ulcer of toe of right foot, limited to breakdown of skin (CMS/HCC V24, CMS/HCC V28); Corns and callosities; Type II diabetes mellitus with peripheral circulatory disorder (CMS/HCC V24, CMS/HCC V28); Diabetic mononeuropathy simplex (CMS/[facility] V24, [facility] V28); Metatarsalgia of both feet; Pain [...] AM EDT Office Visit Orthopedic Surgery - [place] [address] [phone] Ry Gallagher, DPM [address] [address] Health Maintenance Due Date Last Done Comments [...] Last 3 Months Insurance MEDICARE Care Teams Ocean Clam Boat Captain Relationship Specialty Start Date End Date Los Jacques MD [address] [place] [address] [address] [facility] [place] [address] PCP - General 10/24/21
== END 2024-06-22 14:42 | disposition home or self-care (01) ==
LOC: HO.HPS 14:23
PROVIDERS: PCP Internal Medicine; Visit Provider Internal Medicine Pulmonary Disease
DX: J44.9 Chronic obstructive pulmonary disease, unspecified (principal); G47.33 Obstructive sleep apnea (adult) (pediatric); R60.0 Localized edema; Z87.891 Personal history of nicotine dependence
CPT/HCPCS: 99214; G2211

== ENCOUNTER → 2024-06-22 14:23 | Outpatient (BNVA) | payer MEDICARE, SELFPAY | PROVIDERS: PCP Internal Medicine; Visit Provider Internal Medicine Pulmonary Disease | DX: J44.9 Chronic obstructive pulmonary disease, unspecified (principal); G47.33 Obstructive sleep apnea (adult) (pediatric); R60.0 Localized edema; I48.91 Unspecified atrial fibrillation; I50.9 Heart failure, unspecified; Z79.01 Long term (current) use of anticoagulants; Z87.891 Personal history of nicotine dependence; Z99.89 Dependence on other enabling machines and devices | CPT/HCPCS: 99212 ==

== ENCOUNTER → 2024-06-28 11:16 | Outpatient (BNVA) | payer MEDICARE, SELFPAY | PROVIDERS: PCP Internal Medicine; Visit Provider Internal Medicine Medical Oncology | DX: Z13.89 Encounter for screening for other disorder (principal) ==

== ENCOUNTER → 2024-07-05 10:50 | Outpatient (BNVA) | payer MEDICARE, SELFPAY | PROVIDERS: PCP Internal Medicine; Visit Provider Internal Medicine Medical Oncology ==

== ENCOUNTER → 2024-07-12 14:31 | Outpatient (BNVA) | payer MEDICARE, SELFPAY | PROVIDERS: PCP Internal Medicine; Visit Provider Internal Medicine Medical Oncology | DX: Z13.89 Encounter for screening for other disorder (principal) ==

== ENCOUNTER 2024-07-17 06:53 | Outpatient (REF) | payer MEDICARE, SELFPAY ==
--- OUTSIDE RECORDS SUMMARY | 2024-07-17 06:55 | XMS_ITS | Continuity of Care Document ---
Author Organization [facility] Address [address] [place] [address] Dr [address] [place] [phone] Phone Care Team Providers Care Material Controller Name Role Phone Mesha Bell MD, FACS, RVT Unavailable Unavailable Procedures Procedure Date 11-20 Min Medical Discussion On Phone - Telemedicine Advance Directives Directive Yes / No Effective Date File Name No Information Encounters Encounter Description Practice Location Reason(s) For Visit Diagnoses Date Provider Providers Copied on Encounter [facility], [address] [place] [address] [address] [place], [id number], [place] tel:[phone] [facility] No Information 3 Chun Perez. [address] [place] [address], [address], [place]. tel:[phone] Referring Provider: Sky Hector IV, MD , [address] [place] [address], [address]. tel:[phone] 11-20 Min Medical Discussion On Phone - Telemedicine [facility], [address] [place] [address] [address] [place], [id number], [place] tel:[phone] [facility] Ven[facility] insufficiency (chronic) (peripheral) 3 Chun Perez. [address] [place] [address], [address], [place]. tel:[phone] Referring Provider: Sky Augustin, [address] [place] [address] [place], [address]. tel:[phone] Family History Family Member Type Diagnosis Age At Onset No Information Payers Payer name Insurance type Covered democrat ID Authoriza tion(s) [place] [id number] [place] [id number] Social History Type Description Quantity Date Captured [...]
--- OUTSIDE RECORDS SUMMARY | 2024-07-17 06:56 | XMS_ITS | Patient Health Record ---
Author Organization [facility] Address [address] [place] [address] Care Team Providers Care Government Property Inspector Name Role Phone Los Jacques MD Primary Care Provider Zachary Zamorano Unavailable [phone] Allergies Allergen (clinical drug ingredient) Drug/Non Drug [...] Sodium 5 MG TAKE 1 TABLET BY [facility] DAILY PER PROTOCOL. TAKE ADDITIONAL TABLET DIRECTED [...] Problem Status W/U Status Risk Notes Problem [id number] Encounter for screening for malignant neoplasm of colon (Z12.11) Active confirmed Problem History of adenomatous polyp of colon (149661387) History of adenomatous polyp of colon (Z86.010) Active confirmed Problem Screening for malignant neoplasm of rectum (656989525) Encounter for screening for malignant neoplasm of rectum (Z12.12) Active confirmed Problem History of polyp of colon (situation) (933801478) History of colon polyps (Z86.010) Active confirmed Problem 744261525 Gastroesophageal reflux disease, esophagitis presence not specified (K21.9) Active confirmed Problem 65330721 Pharyngoesophage al dysphagia (R13.14) Active confirmed Problem Diverticulosis of colon (409529918) Diverticulosis of colon (K57.30) Active confirmed Plan [...] MEDICARE OF [place] [address] [place] [address] [id number] SEJAL IRAHETA Self - patient is the insured MEDICAID OF [facility] [address] [place] [address] [id number] SEJAL IRAHETA Self - patient is the insured Medical (General) History Medical History History ICD Code HTN A.fib--seeing Hematoma in left side of rib s in relation to coughing--rib injury and a pleural effusion. Denies W[place],DM,CVA,renal disease GERD Sleep apnea--uses CPAP Right leg [...] and several hyperplastic polyps removed COVID 01/2021-[place] [facility] [place] [facility] days Surgical History Surgery Date(Month/Year) Tracheostomy at age 3 2 hammer toes /infection bottom of right foot Hernia repair-umbilical
--- OUTSIDE RECORDS SUMMARY | 2024-07-17 06:56 | XMS_ITS | Clinical Summary ---
Author Organization 175 [facility] Address [address] [place] [address] Phone Care Team Providers Care Extrusion Die Corrector Name Role Phone Los Jacques MD Primary Care Provider [phone] Allergies Active Allergy Reactions Criticality Noted Date [...] AM EDT Office Visit Orthopedic Surgery - [address] [address] Ry Gallagher, DPSara Hammer toe of left foot (Primary Dx); Follow-up exam; Ulcer of toe of right foot, limited to breakdown of skin (CMS/HCC V24, CMS/HCC V28); Corns and callosities; Type II diabetes mellitus with peripheral circulatory disorder (CMS/HCC V24, CMS/HCC V28); Dermatophytosis of nail; Acquired hammer toe of right foot; Pain in toe of right foot; Metatarsalgia of both feet; Diabetic mononeuropathy simplex (CMS/HCC V24, CMS/HCC V28); Pain in toe of left foot; Ulcer of toe of left foot, limited to breakdown of skin (CMS/HCC V24, CMS/HCC V28) from Last 3 Months Social History Tobacco [...] AM EDT Office Visit Orthopedic Surgery - [place] [address] [facility] [address] [place] [id number] Ry Gallagher, DPM 175 [facility] [address] [place] [address] Health Maintenance Due Date Last Done Comments [...] navicular joint to calcaneal cuboid joint ?? Ry Gallagher DPM IMG XR PROCEDURES Final R esult from Last 3 Months Insurance MEDICARE Care Teams Extrusion Die Corrector Relationship Specialty Start Date End Date Los Jacques MD [address] [place] [address] [address] [facility] [place] [address] PCP - General 10/24/21
[2024-07-17 07:14] LABS: MANUAL DIFF FLAG NO
[2024-07-17 07:24] LABS: Basophils Absolute Auto 0.1 X10*3/uL (0.0-0.2); Basophils Percent Auto 0.6 % (0-2); Eosinophils Absolute Auto 0.2 X10*3/uL (0.0-0.4); Eosinophils Percent Auto 2.9 % (0-4); Hematocrit 44.1 % (42.0-52.0); Hemoglobin 14.7 g/dl (14.0-18.0); Imm Gran Abs Auto 0.05 X10*3/uL (0.00-0.03); Imm Gran Pct Auto 0.6 % (0.0-0.4); Lymphocytes Absolute Auto 1.4 X10*3/uL (1.2-4.9); Lymphocytes Percent Auto 16.2 % (20-40); Mean Corpuscular HGB Conc 33.3 g/dl (31.0-36.0); Mean Corpuscular Hemoglobin 33.9 pg (27.0-33.0); Mean Corpuscular Volume 101.8 fL (80.0-98.0); Mean Platelet Volume 9.4 fL (9.4-12.4); Monocytes Absolute Auto 0.7 X10*3/uL (0.1-1.2); Monocytes Percent Auto 7.8 % (2-11); Neutrophils Percent Auto 71.9 % (45-73); Platelet Count 210 X10*3/uL (160-400); Red Blood Count 4.33 X10*6/uL (4.60-5.80); Red Cell Distribution Width 13.9 % (11.0-16.0); White Blood Count 8.3 X10*3/uL (4.8-10.8)
[2024-07-17 07:48] LABS: B Type Natriuretic Peptide 83 pg/mL (<100)
[2024-07-17 07:50] LABS: Estimated Average Glucose 111 mg/dL; Hemoglobin A1C 142.4287 umol/L; Hemoglobin A1c % 5.5 % (<6.0); Total Hemoglobin (HGBA1C) 3839.5988 umol/L
[2024-07-17 07:59] LABS: Alanine Aminotransferase 23 U/L (0-40); Albumin Level 4.6 g/dL (3.5-5.0); Alkaline Phosphatase 57 U/L (39-117); Anion Gap 14 (12-20); Aspartate Amino Transferase 40 U/L (5-37); Bilirubin Total 0.8 mg/dL (0.0-1.0); Blood Urea Nitrogen 20 mg/dL (9-16); C Reactive Protein 3.26 mg/dL (< or = 0.50); Calcium 9.2 mg/dL (8.4-10.2); Carbon Dioxide 29 mmol/L (22-29); Chloride 105 mmol/L (96-108); Cholesterol 185 mg/dL (<200); Estimated Glomerular Filt Rate > 60; Glucose Random 127 mg/dL (60-115); HDL Cholesterol 34 mg/dL (>40); LDL Cholesterol Calculated 128 mg/dL (<100); Magnesium 2.1 mg/dL (1.6-2.6); Potassium 4.3 mmol/L (3.3-5.1); Sodium 144 mmol/L (135-145); Total Protein 7.4 g/dL (6.5-8.0); Triglycerides 116 mg/dL (<150)
[2024-07-17 08:15] LABS: Erythrocyte Sedimentation Rate 12 MM/HR (0-15)
[2024-07-17 08:19] LABS: Free T4 (Free Thyroxine) 1.19 ng/dL (0.71-1.85); Thyroid Stimulating Hormone 1.54 uIU/mL (0.32-4.0)
[2024-07-17 08:27] LABS: Folate 11.7 ng/mL (> or = 4.0); Prostate Specific Antigen Scr 0.78 ng/mL (<0.05-4.0); Vitamin B12 843 pg/mL (200-900)
== END 2024-07-17 06:54 | disposition home or self-care (01) ==
LOC: HO.LAB 06:53
PROVIDERS: Absent Provider Student in an Organized Health Care Education/Training Program; PCP Internal Medicine; Visit Provider Internal Medicine
DX: E78.00 Pure hypercholesterolemia, unspecified (principal); M06.00 Rheumatoid arthritis without rheumatoid factor, unspecified site; Z12.5 Encounter for screening for malignant neoplasm of prostate; Z13.1 Encounter for screening for diabetes mellitus
CPT/HCPCS: 36415; 80053; 80061; 82607; 82746; 83036; 83735; 83880; 84153; 84439; 84443; 85025; 85652; 86140

== ENCOUNTER → 2024-07-19 08:55 | Outpatient (BNVA) | payer MEDICARE, SELFPAY | PROVIDERS: PCP Internal Medicine; Visit Provider Internal Medicine Medical Oncology | DX: I48.19 Other persistent atrial fibrillation (principal); Z79.01 Long term (current) use of anticoagulants; Z51.81 Encounter for therapeutic drug level monitoring | CPT/HCPCS: 99212 ==

== ENCOUNTER 2024-07-19 09:52 | Outpatient (AMB) | payer MEDICARE, SELFPAY ==
--- NOTE | 2024-07-19 09:56 | A.OFFVIS_ITS ---
Vital Signs 07/19/24 10:01 Height 6 ft 2 in Weight 270 lb 11.642 oz BMI 34.8 BP 140/74 H Blood Pressure Location Rt brachial Position Sitting Pulse 59 Pulse Source Pulse Oximeter Pulse Oximetry (%) 98 Oxygen Delivery Method Room Air Intake Visit Reasons: RA Intake Note: Patient presents for RA. Allergies Penicillins [PCN] Allergy (Unknown, Verified 07/19/24 09:59) UNKNOWN- RXN CHILD/? HIVES Medication List - Last Reconciled 07/19/24 by Maren Covarrubias MD acetaminophen 650 mg PO Q6H PRN albuterol sulfate 90 mcg/actuation 2 puffs inhalation Q4-6H PRN 3 months ascorbic acid (vitamin C) 1,000 mg PO DAILY bumetanide 2 mg PO BID cholecalciferol (vitamin D3) 25 mcg PO DAILY compr.stocking,knee,long,large As directed 20-30 mm HG [CPAP As directed] diltiazem HCl CD 180 mg PO DAILY hydroxychloroquine 200 mg PO BID ipratropium-albuterol 0.5 mg-3 mg(2.5 mg base)/3 mL 3 mL inhalation Q4-6H PRN 30 days lisinopril 5 mg PO DAILY mecobalamin (vitamin B12) 1,000 mcg PO DAILY omeprazole 20 mg PO DAILY pravastatin 20 mg PO DAILY Trelegy Ellipta 200-62.5-25 mcg (fwtumdvtfoo-kouljuzlk-lnybfphq) 1 ea PO DAILY NS warfarin 5 mg See Protocol PO DAILY HPI Comments Details: Patient is a 69-year-old male previous smoker with COPD, JENNIFER on CPAP, hypertension, hyperlipidemia complicated by peripheral vascular disease and foot ulcers, persistent AFib on warfarin, polyarticular osteoarthritis and seronegative rheumatoid arthritis here today for follow up Interval History: Patient last seen 01/19/[address] Mitchell. At that time he was following up for his seronegative rheumatoid arthritis on hydroxychloroquine 200 mg twice a day. Patient reported he was doing well in terms of his arthritis without any significant joint pain or swelling. Today, Patient is complaining of bilateral hand pain associated with morning stiffness lasting for several hours Ulcers have healed Rheumatologic History: Methotrexate- 2017- January 2022, discontinued due to right lower extremity cellulitis Humira 2019-January 2022, discontinued due to right lower extremity cellulitis Prednisone- off since October 2019 HCQ 10/21 effective Current Rheumatology Medication(s): Hydroxychloroquine 200mg daily [facility] Medical History (Updated 07/19/24 @ 10:38 by Maren Covarrubias MD) COPD (chronic obstructive pulmonary disease) Restless legs syndrome (RLS) Neuropathy Current use of anticoagulant therapy COVID-19 virus infection Post covid-19 condition, unspecified Hospital discharge follow-up Persistent atrial fibrillation On methotrexate therapy Cor pulmonale (chronic) Insomnia Hemothorax Vitamin D deficiency Right renal stone Peripheral vascular disease GERD (gastroesophageal reflux disease) Impaired glucose tolerance Hypercholesterolemia Hypertension Atrial fibrillation Severe obstructive sleep apnea Primary osteoarthritis of knees, bilateral bed bug exterminator methotrexate user Seronegative rheumatoid arthritis Current use of anticoagulant therapy Moderate COPD (chronic obstructive pulmonary disease) History of cardioversion Surgical History Hx of foot surgery History of umbilical hernia repair Hx of tonsillectomy S/P emergency tracheotomy for assistance in breathing Family History Father No problems noted. Mother Rheumatoid arteritis Sister Breast cancer Other Mental health disorder Substance use disorder Social History Household Members: Significant Other Housing: Apartment Do you presently have visiting nurse or other home services: No Alcohol intake: former Patient Tobacco Use Status: Former Tobacco user Tobacco use type: Cigarette Years Smoked: 49 e-Cigarette/Vaping Use: Never Used Second Hand Smoke Exposure: Yes Substance Use Type: Marijuana service: No Current occupational status: retired Cognitive needs: No Hearing needs: No Vision needs: Yes Review of Systems Const Details: Review of Systems Constitutional: Denies fever, chills, weight loss ENT: Denies vision changes, eye pain or eye redness, dental caries, dry mouth GI: Denies nausea, vomiting, diarrhea, abdominal pain, change in BM Pulm: Denies SOB, HURTADO, hemoptysis, wheezing Cards: Denies chest pain, palpitations Skin: Denies Raynaud's, rash, nail changes, photosensitivity, MAGNETOMETER OPERATOR: Denies headaches, weakness, paresthesias, recurrent falls MSK: as per HPI All other systems reviewed and are unremarkable except noted above Physical Exam Vital Signs: Last Vital Signs Pulse 59 07/19/24 10:01 BP 140/74 H 07/19/24 10:01 Pulse Ox 98 07/19/24 10:01 Oxygen Delivery Method Room Air 07/19/24 10:01 BMI result Body Mass Index 34.8 Vital signs reviewed Physical Examination CONSTITUITIONAL Patient alert and cooperative. Well appearing and in no apparent painful distress HEENT Conjunctiva and sclera clear. ?Pupils equal round and reactive to light. ?No lymphadenopathy. ? CHEST/RESPIRATORY SYSTEM Normal respiratory effort and able to speak in complete sentences. ?Clear to auscultation bilaterally. ?No crackles, rales, rhonchi, wheezes heard. CARDIAC SYSTEM Irregular rhythm. ?S1 and S2 heard no murmurs. ?Radial pulses intact bilaterally MSK Hands: ?Able to make a fist. Synovial hypertrophy noted to the 2nd and 3rd MCPs bilaterally with tenderness to palpation. Rheumatoid nodules noted over the PIPs. Boutonniere deformity noted to the left 5th finger ? Wrists: ?Full range of motion at the wrists without pain. ?No tenderness to palpation or synovitis noted to the wrists. Elbows: Full range of motion without pain. No tenderness, weakness, swelling, increased warmth or erythema. Shoulders: Full range of active range of motion without pain. No tenderness, w eakness, swelling, increased warmth or erythema. Knees: ?Full range of motion. ?No tenderness, swelling, increased warmth or erythema.? crepitations noted Ankles: Full range of motion. ?No tenderness, swelling, increased warmth or erythema.? Pitting edema to the left leg up to mid fuller Feet: ?Negative squeeze test. ?No tenderness to palpation or swelling of the MTPs. Tender points:?No tenderness to palpation of the bilateral trapezius, supraspinatus, greater trochanters, anterior costochondral junctions, bilateral gluteal areas, bilateral suboccipital muscle insertions SKIN Bilateral lipodermatosclerosis to the gaiter area Results AMB INR Fingerstick AMB INR Fingerstick 2.5 Last Edit by Kenyetta Salamanca RN on 07/19/24 09:00 Results Reviewed Results Reviewed: Laboratory Tests 07/17/24 07:13 WBC 8.3 RBC 4.33 L Hgb 14.7 Hct 44.1 Plt Count 210 ESR 12 Sodium 144 Potassium 4.3 Chloride 105 Carbon Dioxide 29 BUN 20 H Creatinine 0.94 AST 40 H ALT 23 Alkaline Phosphatase 57 C-Reactive Protein 3.26 H Assessment & Plan Assessment & Plan (1) Seronegative rheumatoid arthritis: Comment: Methotrexate- 2017- January 2022, discontinued due to right lower extremity cellulitis Humira 2019-January 2022, discontinued due to right lower extremity cellulitis Prednisone- off since October 2019 HCQ 10/21 Code(s): M06.00 - Rheumatoid arthritis without rheumatoid factor, unspecified site Category: Medical Plan: #Seronegative RA Patient is a 69-year-old male with seronegative rheumatoid arthritis here today for follow up. Currently on hydroxychloroquine monotherapy. Patient has a moderate disease activity with rheumatoid arthritis given his see dye of 8+ elevated inflammatory markers including a CRP which is 3 times the upper limit of normal. Given that his ulcers are healed this is likely related to his underlying uncontrolled rheumatoid arthritis. We will add back Humira Plan - Plaquenil 200mg bid - Start Humira 40mg SC every other week - RTC 4 months - Labs before visit: CBC, CMP, ESR, CRP, Hep B and C, T spot (2) Polyarticular osteoarthritis: Code(s): M15.9 - Polyosteoarthritis, unspecified Plan: #Polyarticular OA Patient with polyarticular OA typically affecting the hands and the knees. Currently stable (3) Encounter for monitoring of hydroxychloroquine therapy: Code(s): Z51.81 - Encounter for therapeutic drug level monitoring; Z79.899 - Other halfway (current) drug therapy Plan: #Long-term Use of Hydroxychloroquine Discussed with patient the risks and benefits of hydroxychloroquine in managing the rheumatic condition Benefits include: - Reduced pain, reduce mortality, maintenance of remission and reduction of flares Risks include: - GI upset, skin hyperpigmentation, retinal toxicity (especially after more than 5 years of use), myopathy Advised yearly ophthalmology visits Last ophthalmology visit: 09/2023 (4) Encounter for monitoring of adalimumab therapy: Code(s): Z51.81 - Encounter for therapeutic drug level monitoring; Z79.620 - bed bug exterminator (current) use of immunosuppressive biologic Plan: #Long-term Use of TNF Inhibitors: Humira Discussed with the patient the benefits and risks of TNF inhibitors for the management of the rheumatic condition Benefits include reduce pain, maintenance of remission and reduction of flares as well as ?progression of the disease Risks include injection sites/infusion reactions, serious infections (such as bacterial infections, opportunistic infections), malignancy, delaminating syndromes, autoimmune phenomena, CHF exacerbations, palmar plantar psoriasis and cytopenias Recommended rotating injection sites, and holding medication during and for up to 1 week after resolution of a febrile illness or open skin wound Plan I spent 30 minutes reviewing the record and labs, taking a history, examining the patient, discussing the treatment plan, ordering diagnostic work up and documenting in the medical record Medications: New adalimumab (Humira(CF) Pen) (0.4 mL) 40 mg subcutaneously; 30 days 2 ea 5RF M06.00 - Rheumatoid arthritis without rheumatoid factor, unspecified site Refilled hydroxychloroquine 200 mg PO BID 180 tabs 1RF Coding Level of Care Code Est Pt Level 4 (94028) Complex EM visit Add On G2211 Diagnoses Seronegative rheumatoid arthritis M06.00 Polyarticular osteoarthritis M15.9 Encounter for monitoring of hydroxychloroquine therapy Z51.81; Z79.899 Encounter for monitoring of adalimumab therapy Z51.81; Z79.620
[2024-07-19 10:01] VITALS: BP 140/74; PULSE 59; O2SAT 98; BMI 34.8
--- OUTSIDE RECORDS SUMMARY | 2024-07-19 11:15 | XMS_ITS | Clinical Summary ---
Author Organization 175 [facility] Address [address] [place] [address] Phone Care Team Providers Care Meat Hostess Name Role Phone Los Jacques MD Primary Care Provider [phone] Allergies Active Allergy Reactions Criticality Noted Date [...] AM EDT Office Visit Orthopedic Surgery - [address] [address] Ry Gallagher, DPSara Hammer toe [...] AM EDT Office Visit Orthopedic Surgery - [place] [address] 175 [facility] [address] [place] [id number] Ry Gallagher, DPM 175 [facility] [address] [place] [address] Health Maintenance Due Date Last Done Comments [...] Last 3 Months Insurance MEDICARE Care Teams Meat Hostess Relationship Specialty Start Date End Date Los Jacques MD [address] [place] [address] [address] [facility] [place] [address] PCP - General 10/24/21
== END 2024-07-19 10:27 | disposition home or self-care (01) ==
LOC: HO.RHE 09:53
PROVIDERS: PCP Internal Medicine; Visit Provider Student in an Organized Health Care Education/Training Program
DX: M06.00 Rheumatoid arthritis without rheumatoid factor, unspecified site (principal); M15.9 Polyosteoarthritis, unspecified; Z51.81 Encounter for therapeutic drug level monitoring; Z79.899 Other long term (current) drug therapy; Z79.620 Long term (current) use of immunosuppressive biologic
CPT/HCPCS: 99214; G2211

== ENCOUNTER → 2024-07-26 11:29 | Outpatient (BNVA) | payer MEDICARE, SELFPAY | PROVIDERS: PCP Internal Medicine; Visit Provider Internal Medicine Medical Oncology ==

== ENCOUNTER 2024-08-01 07:17 | Outpatient (REF) | payer MEDICARE, SELFPAY ==
--- NOTE | ~2024-08-01 | CT_ITS ---
CLINICAL HISTORY: Z87.891 - Personal history of nicotine dependence CT lung cancer screening (LDCT) Comparison: None Technique: Axial CT images of the chest using low-dose technique. Referring provider counseled the patient on shared decision-making for LDCT screening. Additional counseling was provided on smoking cessation. Effective radiation dose total: DLP 83.9 mGycm, CTDIvol 2.3 mGy. Findings: Lung: Mild emphysema. 1.6 x 1.8 cm pulmonary nodule of the right upper lobe series 4, image 57. Coronary artery calcifications: Moderate Limited upper abdomen: Limited evaluation of the bilateral renal cysts. Other: None Impression: LungRADS 4B - Suspicious: Diagnostic Chest CT with or without contrast, PET/CT, and/or tissue sampling recommended depending on the probability of malignancy and comorbidities. ##L4B## Category 1: Normal; continue annual screening Category 2: Benign appearance or behavior, continue annual screening Category 3: Probably benign, [address] recommended Category 4A: Suspicious, [address] recommended; may consider PET/CT Category 4B: Suspicious, Additional diagnostics and/or tissue sampling recommended Category 4X: Suspicious, Additional diagnostics and/or tissue sampling recommended Category 0: Recalls (incomplete screen due to Incomplete coverage, Noise, Respiratory motion, Expiration, Obscured by acute abnormality) This document has been electronically signed by: George Benson MD on 08/01/2024 15:06:15
--- OUTSIDE RECORDS SUMMARY | 2024-08-01 07:20 | XMS_ITS | Patient Health Record ---
Author [facility] Address [address] [place] [address] Care Team Providers Care Electric Stove Mechanic Name Role Phone Los Jacques Primary Care Provider Paul Ivey Unavailable [phone] Allergies Allergen (clinical drug ingredient) Drug/Non Drug [...] Active confirmed Problem Chronic ulcer of foot (650202825) Non-pressure chronic ulcer of other part of left foot with fat layer exposed (L97.522) Active confirmed Problem Bilateral atherosclerosis of arteries of lower limbs (disorder) (38916031299484168) Unspecified atherosclerosis of [place] arteries of extremities, bilateral legs (I70.203) Active confirmed Problem Acquired hammer toe of right foot (8193056925936702) Other hammer toe(s) (acquired), right foot (M20.41) Active confirmed Problem Acquired hammer toe of left foot (5732835527237568) Other hammer toe(s) (acquired), left foot (M20.42) Active confirmed Problem 115332252 Neuropathy (G62.9) Active confirmed Problem 6376939303801333 Osteomyelitis o f foot, right, acute (M86.171) Active confirmed Problem 4879180723445391 Primary osteoarthritis of right foot (M19.071) Active confirmed Plan Of Treatment Pending Test Test Name Order Date X ray : Foot, left 3V 10/07/2021 X ray : Foot, right 3V 10/07/2021 X ray : Foot, right 3V 07/28/2022 [id number] SKIN/TISSUE 07/28/2022 [id number] SKIN/TISSUE 07/15/2022 [id number] SKIN/TISSUE 02/04/2022 [id number] SKIN/TISSUE 10/07/2021 [id number] SKIN LESIONS, 2 TO 4 10/08/19 [id number] SKIN LESIONS, 2 TO 4 05/14/19 [id number] SKIN LESIONS, 2 TO 4 12/23/19 [id number] OF HEMATOMA/FLUID 022 Insurance Providers Payer Name Payer Address Payer Phone Subscriber Number Group Number Insured Name Patient Relationship to Insured Coverage Start Date Coverage End Date Medicare National [employer] [address] [place] [address] [id number] Konrad Ferrera Self - patient is the insured Medical (General) History Medical History History ICD Code Atrial fibrillation Cor pulmonale (chroic) current use of anticoagulant therapy Gerd (Gastroesophageal reflux disease) Hemothorax History of Cardioversion hypercholesterolemia hypertension impaired glucose tolerance insomnia salvage determiner methotrexate user moderate COPD ( Chronic Obstructive [...]
== END 2024-08-01 07:18 | disposition home or self-care (01) ==
LOC: HO.CT 07:17
PROVIDERS: PCP Internal Medicine; Visit Provider Internal Medicine Pulmonary Disease
DX: Z12.2 Encounter for screening for malignant neoplasm of respiratory organs (principal); Z87.891 Personal history of nicotine dependence
CPT/HCPCS: 71271

== ENCOUNTER → 2024-08-01 07:19 | Outpatient (BNV) | payer MEDICARE, SELFPAY | PROVIDERS: PCP Internal Medicine; Visit Provider Nuclear Medicine | DX: Z87.891 Personal history of nicotine dependence (principal) | CPT/HCPCS: 71271 ==

== ENCOUNTER → 2024-08-02 08:53 | Outpatient (BNVA) | payer MEDICARE, SELFPAY | PROVIDERS: PCP Internal Medicine; Visit Provider Internal Medicine Medical Oncology | DX: Z13.89 Encounter for screening for other disorder (principal) ==

== ENCOUNTER → 2024-08-09 08:51 | Outpatient (BNVA) | payer MEDICARE, SELFPAY | PROVIDERS: PCP Internal Medicine; Visit Provider Internal Medicine Medical Oncology ==

== ENCOUNTER → 2024-08-16 10:41 | Outpatient (BNVA) | payer MEDICARE, SELFPAY | PROVIDERS: PCP Internal Medicine; Visit Provider Internal Medicine Medical Oncology | DX: Z13.89 Encounter for screening for other disorder (principal) ==

== ENCOUNTER → 2024-08-23 08:42 | Outpatient (BNVA) | payer MEDICARE, SELFPAY | PROVIDERS: PCP Internal Medicine; Visit Provider Internal Medicine Medical Oncology | DX: Z13.89 Encounter for screening for other disorder (principal) ==

== ENCOUNTER 2024-09-15 13:16 | Outpatient (AMB) | payer MEDICARE, SELFPAY ==
--- OUTSIDE RECORDS SUMMARY | 2022-04-27 07:36 | XMS_ITS | Continuity of Care Document ---
Author Organization [facility] Address [address] [place] [address] Dr [address] [place] [phone] Phone Care Team Providers Care Administrative Services Officer Name Role Phone Mesha Bell MD, FACS, RVT Unavailable Unavailable Procedures Procedure Date 11-20 Min Medical Discussion On Phone - Telemedicine Advance Directives Directive Yes / No Effective Date File Name No Information Encounters Encounter Description Practice Location Reason(s) For Visit Diagnoses Date Provider Providers Copied on Encounter [facility], [address] [place] [address] [address] [place], [id number], [place] tel:[phone] [facility] No Information 3 Chun Perez. [address] [place] [address], [address], [place]. tel:[phone] Referring Provider: Sky Hector IV, MD , [address] [place] [address], [address]. tel:[phone] 11-20 Min Medical Discussion On Phone - [facility]medicine [facility], [address] [place] [address] [address] [place], [id number], [place] tel:[phone] [facility] (chronic) (peripheral) 3 Chun Perez. [address] [place] [address], [address], [place]. tel:[phone] Referring Provider: Sky Augustin, [address] [place] [address] [place], [id number]. tel:[phone] Family History Family Member Type Diagnosis Age At Onset No Information Payers Payer name Insurance type Covered republican ID Authoriza tion(s) [place] [id number] [place] [id number] Social History Type Description Quantity Date Captured [...]
--- OUTSIDE RECORDS SUMMARY | 2024-09-15 13:19 | XMS_ITS | Clinical Summary ---
Author Organization [facility] Address [address] [place] [address] Phone Care Team Providers Care Limehouse Worker Name Role Phone Los Jacques MD Primary Care Provider [phone] Allergies Active Allergy Reactions Criticality Noted Date [...] Encounters Date Type Department Care Team Description 08/31/2024 7:22 AM EDT - 08/31/2024 11:59 PM EDT Hospital Encounter [facility] PET Scan [address] [place] [id number] Other nonspecific abnormal finding of lung field Discharge Disposition: Home or Self Care 08/08/2024 10:00 AM EDT Office Visit Orthopedic Surgery - [place] [address] [facility] [address] [place] [phone] Ry Gallagher, DPSara Ulcer of toe of right foot, limited to breakdown of skin ([facility] V24, [facility] V28) (Primary Dx); Acquired hammer toe of right foot; Hammer toe of left foot; Corns and callosities; Type II diabetes mellitus with peripheral circulatory disorder ([facility] V24, [facility] V28); Diabetic mononeuropathy simplex ([facility] V24, [facility] V28); Metatarsalgia of both feet; Pain in toe of right foot; Dermatophytosis of nail; [...] Upcoming Encounters Date Type Department Care Team ([facility] st Contact Info) Description 10/03/2024 10:15 AM EDT Office Visit Orthopedic Surgery - [place] [address] [phone] Ry Gallagher, DPM [address] [address] Health Maintenance Due Date Last Done Comments [...] Contro l Test (HGBA1C) 02/02/2024 Influenza Vaccine (#1) 2024 10/30/2020 HIB Vaccines Aged Out No longer eligi [...] Procedure Name Priority Date/Time Associated Diagnosis Comments PET CT SKULL TO MID THIGH INITIAL Routine 08/31/2024 9:55 AM EDT Other nonspecific abnormal finding of lung field from Last 3 Months Results * PET CT Skull to Mid Thigh Initial (08/31/2024 9:55 AM EDT) Anatomical Region Laterality Modality Body Radiographic Delmi ging 09/05/2024 10:2 9 AM EDT Impressions 09/05/2024 11:32 AM EDT 1. FDG avid right upper lobe lung nodule suspicious for malignancy 2. No FDG avid thoracic or axillary lymphadenopathy 3. Mildly FDG avid inguinal and external iliac lymph node; possibly reactive Please note: The CT was acquired at a low radiation dose settings. The images are of nondiagnostic quality and used solely for purposes of attenuation correction and slice localization for the PET scan. If a diagnostic CT study is desired it must be ordered separately. -------- FINAL REPORT -------- Dictated By: Sarah Choudhary Dictated Date: 09/05/2024 10:29 ET Assigned Physician: Sarah Choudhary Reviewed and Electronically Signed By: Sarah Choudhary Signed Date: 09/05/2024 11:32 ET Workstation ID: [id number] Transcribed By: Self Edit Transcribed Date: 09/05/2024 10:29 ET Narrative 09/05/2024 11:32 AM EDT INDICATION: PULMONARY NODULE. According to the electronic medical record, interval increase in size of right upper lobe lung nodule. TECHNIQUE: FDG PET-CT imaging was performed from the skull bases through the thighs in a single acquisition with data set reconstructed in axial, coronal, and sagittal planes at the computer workstation with fused data from both the PET imaging study and attenuation correction CT. The CT portion of the examination was done strictly for attenuation correction and is not a true diagnostic CT examination. DLP: 1088 mGy-cm Radiopharmaceutical: 12.2 mCi of F-18 FDG IV. Blood glucose: 125 mg/dl. COMPARISON: Prior outside chest CT dated July 2024 FINDINGS: HEAD AND NECK: Nonspecific asymmetric FDG activity in the right parotid gland SUV max 3.1 (contralateral left parotid gland SUV max 2.5). No FDG avid cervical or supraclavicular lymphadenopathy. For example, right-sided submental lymph nodes SUV max 1.9. THORAX: FDG avid right upper lobe lung nodule SUV max 2.9. Bibasilar atelectasis/scarring. Emphysematous changes. No significant FDG avid thoracic lymphadenopathy. Prevascular lymph nodes SUV max 1.9, right paratracheal lymph nodes SUV max 1.6, AP window lymph nodes SUV max 1.8 (mediastinal blood pool SUV Max 2.8). No significant axillary FDG activity (SUV max 1.5 on the left and 1.0 on the right). ABDOMEN/PELVIS: Bilateral enlarged inguinal lymph nodes SUV max 2 on the left and 2.3 on the right. Bilateral external iliac lymph nodes SUV max 0.9 on the left and 2.2 on the right. Low-attenuation lesions in both kidneys without significant FDG activity. Nonspecific bowel activity. Low-attenuation collection along the lower anterior peritoneum SUV max 2.2. Left adrenal nodule/thickening SUV max 2.5 (right adrenal gland SUV max 2.0). Right sided nephrolithiasis. MUSCULOSKELETAL: No abnormal FDG activity. Procedure Note Sarah Choudhary MD - 09/05/2024 INDICATION: PULMONARY NODULE. According to the electronic medical record,interval increase in size of right upper lobe lung nodule. TECHNIQUE: FDG PET-CT imaging was performed from the skull bases throughthe thighs in a single acquisition with data set reconstructed in axial,coronal, and sagittal planes at the computer workstation with fused datafrom both the PET imaging study and attenuation correction CT. The CTportion of the examination was done strictly for attenuation correctionand is not a true diagnostic CT examination. DLP: 1088 mGy-cm Radiopharmaceutical: 12.2 mCi of F-18 FDG IV. Blood glucose: 125 mg/dl. COMPARISON: Prior outside chest CT dated July 2024 FINDINGS: HEAD AND NECK: Nonspecific asymmetric FDG activity in the right parotidgland SUV max 3.1 (contralateral left parotid gland SUV max 2.5). No FDGavid cervical or supraclavicular lymphadenopathy. For example,right-sided submental lymph nodes SUV max 1.9. THORAX: FDG avid right upper lobe lung nodule SUV max 2.9. Bibasilaratelectasis/scarring. Emphysematous changes. No significant FDG avid thoracic lymphadenopathy. Prevascular lymph nodesSUV max 1.9, right paratracheal lymph nodes SUV max 1.6, AP window lymphnodes SUV max 1.8 (mediastinal blood pool SUV Max 2.8). No significantaxillary FDG activity (SUV max 1.5 on the left and 1.0 on the right). ABDOMEN/PELVIS: Bilateral enlarged inguinal lymph nodes SUV max 2 on theleft and 2.3 on the right. Bilateral external iliac lymph nodes SUV max0.9 on the left and 2.2 on the right. Low-attenuation lesions in both kidneys without significant FDG activity.Nonspecific bowel activity. Low-attenuation collection along the loweranterior peritoneum SUV max 2.2. Left adrenal nodule/thickening SUV max2.5 (right adrenal gland SUV max 2.0). Right sided nephrolithiasis. MUSCULOSKELETAL: No abnormal FDG activity. IMPRESSION: 1. FDG avid right upper lobe lung nodule suspicious for malignancy 2. No FDG avid thoracic or axillary lymphadenopathy 3. Mildly FDG avid inguinal and external iliac lymph node; possiblyreactive Please note: The CT was acquired at a low radiation dose settings. The images are ofnondiagnostic quality and used solely for purposes of attenuationcorrection and slice localization for the PET scan. If a diagnostic CTstudy is desired it must be ordered separately. -------- FINAL REPORT -------- Dictated By: Sarah Choudhary Dictated Date: 09/05/2024 10:29 ET Assigned Physician: Sarah Choudhary Reviewed and Electronically Signed By: Sarah Choudhary Signed Date: 09/05/2024 11:32 ET Workstation ID: [id number] Transcribed By: Self Edit Transcribed Date: 09/05/2024 10:29 ET Tyler Masters MD IMG NM PROCEDURES Final Result from Last 3 Months Insurance MEDICARE Care Teams Limehouse Worker Relationship Specialty Start Date End Date Los Jacques MD [address] [place] [address] Dr [address] [facility] [place] [address] PCP - General 10/24/21
--- OUTSIDE RECORDS SUMMARY | 2024-09-15 13:19 | XMS_ITS | Patient Health Record ---
Author Organization [facility] Address [address] [place] [address] Care Team Providers Care Grassroots Organizer Name Role Phone Los Jacques MD Primary Care Provider Zachary Zamorano Unavailable [phone] Allergies Allergen (clinical drug ingredient) Drug/Non Drug [...] Sodium 5 MG TAKE 1 TABLET BY [facility] DAILY PER PROTOCOL. TAKE ADDITIONAL TABLET DIRECTED [...] Problem Status W/U Status Risk Notes Problem 074418384 Encounter for screening for malignant neoplasm of colon (Z12.11) Active confirmed Problem History of adenomatous polyp of colon (517736537) History of adenomatous polyp of colon (Z86.010) Active confirmed Problem Screening for malignant neoplasm of rectum (087353876) Encounter for screening for malignant neoplasm of rectum (Z12.12) Active confirmed Problem History of colon polyps (Z86.010) Active confirmed Problem 089109636 Gastroesophageal reflux disease, esophagitis presence not specified (K21.9) Active confirmed Problem 37128150 Pharyngoesophage al dysphagia (R13.14) Active confirmed Problem Diverticulosis of colon (237449511) Diverticulosis of colon (K57.30) Active confirmed Plan [...] MEDICARE OF [place] [address] [place] [address] [id number] SEJAL IRAHETA Self - patient is the insured MEDICAID OF [facility] [address] [place] [address] [id number] SEJAL IRAHETA Self - patient is the insured Medical (General) History Medical History History ICD Code HTN A.fib--seeing Hematoma in left side of rib s in relation to coughing--rib injury and a pleural effusion. Denies CO,DM,CVA,renal disease GERD Sleep apnea--uses CPAP Right leg [...] and several hyperplastic polyps removed COVID 01/2021-in [facility] for 17 days Surgical History Surgery Date(Month/Year) Tracheostomy at age 3 2 hammer toes /infection bottom of right foot Hernia repair-umbilical
--- OUTSIDE RECORDS SUMMARY | 2024-09-15 13:19 | XMS_ITS | Patient Health Record ---
Author Organization [facility] Address [address] [facility] [place] [address] Care Team Providers Care Preschool Special Education Teacher Name Role Phone Los Jacques Primary Care Provider Paul Ivey Unavailable [phone] Allergies Allergen (clinical drug ingredient) Drug/Non Drug Allergy documented on EMR Reaction Allergy Type Onset Date Status tramadol Tramadol Unknown Drug Allergy Active Reason For Referral No Information Medications Medication SIG (Take, Route, Frequency, Duration) Notes Start Date End Date Status Trelegy Ellipta Acti ve Furosemide Active Antibiotic Not-Takin g dilTIAZem HCl ER Beads 180 MG 1 capsule Orally Once a day; Duration: 30 day(s) Active Custom Orthotics as directed A ctive D3 Active Office visit . . . .patient is toma red for pulmonary therapy with guarded activity of feet in special shoe and inserts 03/05/2022 Active B12 Active Custom Orthotics as directed A ctive Warfarin Sodium 5 MG 1 tablet Orally Onc e a day; Duration: 30 day(s) Active Bactrim DS 800-160 MG 1 tablet Orally ev yoni 12 hrs; Duration: 10 day(s) 02/04/2022 Not-Taking Bumetanide 2 MG 1 tablet Orally Once a day; Duration: 30 day(s) Active Methotrexate 2.5 MG as directed Orally Not-Taking Omeprazole 20 MG 1 capsule 30 minutes before morning meal Orally Once a day; Duration: 30 day(s) Active Humira Pen 40 MG/0.4ML as directed Subcutaneous Not-Taking Lisinopril 5 MG 1 tablet Orally Once a day; Duration: 30 day(s) Active Antibiotic 10 days Not-Takin g albuterol Active Folic Acid 1 MG 1 tablet Orally Once a day; Duration: 30 day(s) Active Pravastatin Sodium 20 MG 1 tablet Orally Once a day; Duration: 30 day(s) Active Anoro Ellipta 62.5-25 MCG/INH [...] Active confirmed Problem Chronic ulcer of foot (019874535) Non-pressure chronic ulcer of other part of left foot with fat layer exposed (L97.522) Active confirmed Problem Bilateral atherosclerosis of arteries of lower limbs (disorder) (63680172062276623 ) Unspecified atherosclerosis of [place] arteries of extremities, bilateral legs (I70.203) Active confirmed Problem Acquired hammer toe of right foot (8176880064733524) Other hammer toe(s) (acquired), right foot (M20.41) Active confirmed Problem Acquired hammer toe of left foot (1879881365532885) Other hammer toe(s) (acquired), left foot (M20.42) Active confirmed Problem Neuropathy (744897008) Neuropathy (G62.9) Active confirmed Problem Acute osteomyelitis of ankle and/or foot (043488049) Osteomyelitis of foot, right, acute (M86.171) Active confirmed Problem Localized, primary osteoarthritis of the ankle and/or foot (555130074) Primary osteoarthritis of right foot (M19.071) Active confirmed Plan Of Treatment Pending Test Test Name Order Date X ray : Foot, left 3V 10/07/2021 X ray : Foot, right 3V 10/07/2021 X ray : Foot, right 3V 07/28/2022 [id number] SKIN/TISSUE 07/28/2022 [id number] SKIN/TISSUE 07/15/2022 96637-[id number] SKIN/TISSUE 02/04/2022 70568-ITSSQUM SKIN/TISSUE 10/07/2021 [id number] SKIN LESIONS, 2 TO 4 10/08/19 11534-LCLL SKIN LESIONS, 2 TO 4 05/14/19 26435-OTVJ SKIN LESIONS, 2 TO 4 12/23/19 70422-CRJAFOAZ OF HEMATOMA/FLUID 022 Insurance Providers Payer Name Payer Address Payer Phone Subscriber Number Group Number Insured Name Patient Relationship to Insured Coverage Start Date Coverage End Date Medicare National Govt [employer] [address] [place] [address] [id number] Konrad Ferrera Self - patient is the insured Medical (General) History Medical History History ICD Code Atrial fibrillation Cor pulmonale (chroic) current use of anticoagulant therapy Gerd (Gastroesophageal reflux disease) Hemothorax History of Cardioversion hypercholesterolemia hypertension impaired glucose tolerance insomnia long-term methotrexate user moderate COPD ( Chronic Obstructive [...]
--- NOTE | 2024-09-15 13:25 | MHC.OFFVIS ---
Vital Signs 09/15/24 13:26 Height 6 ft 2 in Weight 274 lb BMI 35.2 BP 142/62 H Blood Pressure Location Rt brachial Position Sitting Pulse 66 Pulse Source Pulse Oximeter Pulse Oximetry (%) 95 Oxygen Delivery Method Room Air Intake Visit Reasons: Petscan results Allergies Penicillins (PCN) Allergy (Unknown, Verified 09/15/24 13:29) UNKNOWN- RXN CHILD/? HIVES HPI HPI Petscan results: Details: 69-year-old gentleman, former 40+ pack-year smoker, quit 2017 with underlying history of AFib on anticoagulation, heart failure, long-term methotrexate use, COPD, prior admission for COVID-19 discharged on supplemental oxygen at 6 L with exertion and 2 L at night, no longer on oxygen, followed for moderate COPD, severe obstructive sleep apnea, pulmonary nodules, and dyspnea on exertion. He has been using Trelegy with good control of his pulmonary component and up to twice a day bumetanide 2 mg with worsening control of his symptoms after his bumetanide was switched to generic. Patient continues on CPAP with good control of his underlying symptoms. He denies recent exacerbations. [facility] Medical History (Updated 09/15/24 @ 15:13 by Tyler Masters MD) Right leg DVT Personal history of nicotine dependence COPD (chronic obstructive pulmonary disease) Restless legs syndrome (RLS) Neuropathy Current use of anticoagulant therapy COVID-19 virus infection Post covid-19 condition, unspecified Persistent atrial fibrillation On methotrexate therapy Cor pulmonale (chronic) Insomnia Hemothorax Vitamin D deficiency Right renal stone Peripheral vascular disease GERD (gastroesophageal reflux disease) Impaired glucose tolerance Hypercholesterolemia Hypertension Severe obstructive sleep apnea Primary osteoarthritis of knees, bilateral shelter methotrexate user Seronegative rheumatoid arthritis Moderate COPD (chronic obstructive pulmonary disease) Surgical History (Updated 08/03/24 @ 14:25 by July Mason PA-C) History of cardioversion Hx of foot surgery History of umbilical hernia repair Hx of tonsillectomy S/P emergency tracheotomy for assistance in breathing Family History Father No problems noted. Mother Rheumatoid arteritis Sister Breast cancer Other Mental health disorder Substance use disorder Social History Household Members: Significant Other Housing: Apartment Do you presently have visiting nurse or other home services: No Alcohol intake: former Patient Tobacco Use Status: Former Tobacco user Tobacco use type: Cigarette Years Smoked: 49 e-Cigarette/Vaping Use: Never Used Second Hand Smoke Exposure: Yes Substance Use Type: Marijuana service: No Current occupational status: retired Cognitive needs: No Hearing needs: No Vision needs: Yes Review of Systems Const Denies daytime sleepiness, Denies excessive sweating, Denies fatigue, Denies fever(s), Denies lethargy, Denies malaise, Denies night sweats, Denies snoring and Denies weight loss Eyes Denies blurry vision and Denies itchy eyes ENT Denies nasal congestion, Denies post nasal drip, Denies sinus pain, Denies sinus pressure and Denies other ( Thrush) Card Denies chest pain, Reports pedal edema, Denies dyspnea, Denies orthopnea and Denies paroxysmal nocturnal dyspnea Resp Denies cough, Denies hemoptysis, Denies excessive phlegm production, Denies dyspnea, Denies snoring and Denies wheezing GI Denies abdominal pain and Denies heartburn Musc Denies myalgias, Denies arthralgias and Denies joint swelling Skin/Breast Denies rash Neuro Denies memory loss and Denies seizure-like activity Psych Denies abnormal sleep pattern, Denies anxiety and Denies memory loss Endo Denies excessive sweating, Denies fatigue and Denies heat intolerance Augie/Lymph Denies easy bruising Aller/Immun Denies itchy eyes, Denies seasonal rhinorrhea and Denies wheezing Physical Exam Vital Signs: Last Vital Signs Pulse 66 09/15/24 13:26 BP 142/62 H 09/15/24 13:26 Pulse Ox 95 09/15/24 13:26 Oxygen Delivery Method Room Air 09/15/24 13:26 BMI result Body Mass Index 35.2 Const General: no acute distress and alert Nutritional Appearance: not obese Orientation/consciousness: Other orientation findings ( oriented) HEENT Head: Yes atraumatic Eyes General: appearance normal, both eyes and all related structures Sclerae: sclerae normal EOM: EOMs intact bilaterally Neck Neck: Yes supple Lymphatic: no lymphadenopathy noted Resp Effort & Inspection: normal respiratory effort and no use of accessory muscles Auscultation: clear to auscultation bilaterally Cardio Rate: regular rate Rhythm: regular rhythm Heart sounds: no gallops, no murmurs and no rubs Skin General skin exam: other ( warm) Extrem General: No clubbing, No cyanosis and Yes edema (2+ bilateral lower extremity) Assessment & Plan Assessment & Plan (1) Moderate COPD (chronic obstructive pulmonary disease): Code(s): J44.9 - Chronic obstructive pulmonary disease, unspecified Category: Medical Plan: Well controlled on Trelegy and albuterol MDI/duo nebs. Continue current regimen. (2) Right upper lobe pulmonary nodule: Code(s): R91.1 - Solitary pulmonary nodule Category: Medical Plan: Results of PET scan reviewed, mild FDG activity in the right upper lobe nodule, this time patient is not interested in biopsy, will proceed with further imaging follow-up. Will obtain CT chest in 6 months. (3) Lower extremity edema: Code(s): R60.0 - Localized edema Category: Medical Plan: Worsening control on generic bumetanide, will add metolazone 5 mg 3 times a week for the next 2 weeks to improve symptoms. (4) Severe obstructive sleep apnea: Comment: CPAP use Code(s): G47.33 - Obstructive sleep apnea (adult) (pediatric) Category: Medical Plan: Controlled on current CPAP therapy. Continue CPAP therapy. Orders: Orders CT chest wo IV con 02/15/25 R91.1 - Solitary pulmonary nodule Medications: New metolazone 5 mg PO .Wednesday 6 tabs 0RF Coding Level of Care Code Est Pt Level 4 (82748) Complex EM visit Add On G2211 Diagnoses Moderate COPD (chronic obstructive pulmonary disease) J44.9 Right upper lobe pulmonary nodule R91.1 Lower extremity edema R60.0 Severe obstructive sleep apnea G47.33
[2024-09-15 13:26] VITALS: BP 142/62; PULSE 66; O2SAT 95; BMI 35.2
== END 2024-09-15 14:00 | disposition home or self-care (01) ==
LOC: HO.HPS 13:17
PROVIDERS: PCP Internal Medicine; Visit Provider Internal Medicine Pulmonary Disease
DX: J44.9 Chronic obstructive pulmonary disease, unspecified (principal); R91.1 Solitary pulmonary nodule; R60.0 Localized edema; G47.33 Obstructive sleep apnea (adult) (pediatric)
CPT/HCPCS: 99214; G2211

== ENCOUNTER → 2024-09-15 13:16 | Outpatient (BNVA) | payer MEDICARE, SELFPAY | PROVIDERS: PCP Internal Medicine; Visit Provider Internal Medicine Pulmonary Disease | DX: R91.1 Solitary pulmonary nodule (principal); R60.0 Localized edema; J44.9 Chronic obstructive pulmonary disease, unspecified; G47.33 Obstructive sleep apnea (adult) (pediatric); Z79.631 Long term (current) use of antimetabolite agent; Z87.891 Personal history of nicotine dependence | CPT/HCPCS: 99212 ==

== ENCOUNTER 2024-10-11 07:59 | Outpatient (AMB) | payer MEDICARE, SELFPAY ==
--- OUTSIDE RECORDS SUMMARY | 2024-10-11 08:01 | XMS_ITS | Patient Health Record ---
[facility] jaki [facility] Address [address] [facility] [place] [address] Care Team Providers Care Lithographic Camera Operator Name Role Phone Los Jacques Primary Care Provider Paul Ivey Unavailable [phone] Allergies Allergen (clinical drug ingredient) Drug/Non Drug [...] Active confirmed Problem Chronic ulcer of foot (974523929) Non-pressure chronic ulcer of other part of left foot with fat layer exposed (L97.522) Active confirmed Problem Bilateral atherosclerosis of arteries of lower limbs (disorder) (31196224570186360 ) Unspecified atherosclerosis of [place] arteries of extremities, bilateral legs (I70.203) Active confirmed Problem Acquired hammer toe of right foot (8617243104574442) Other hammer toe(s) (acquired), right foot (M20.41) Active confirmed Problem Acquired hammer toe of left foot (6548171702313052) Other hammer toe(s) (acquired), left foot (M20.42) Active confirmed Problem Neuropathy (610051575) Neuropathy (G62.9) Active confirmed Problem Acute osteomyelitis of ankle and/or foot (187297874) Osteomyelitis of foot, right, acute (M86.171) Active confirmed Problem Localized, primary osteoarthritis of the ankle and/or foot (801006655) Primary osteoarthritis of right foot (M19.071) Active confirmed Plan Of Treatment Pending Test Test Name Order Date X ray : Foot, left 3V 10/07/2021 X ray : Foot, right 3V 10/07/2021 X ray : Foot, right 3V 07/28/2022 [id number] SKIN/TISSUE 07/28/2022 [id number] SKIN/TISSUE 07/15/2022 [id number] SKIN/TISSUE 02/04/2022 11742-IRVAVSF SKIN/TISSUE 10/07/2021 11521-DLEZ SKIN LESIONS, 2 TO 4 10/08/19 04962-WTBW SKIN LESIONS, 2 TO 4 05/14/19 19316-TMCQ SKIN LESIONS, 2 TO 4 12/23/19 43317-RIVSUGFQ OF HEMATOMA/FLUID 022 Insurance Providers Payer Name Payer Address Payer Phone Subscriber Number Group Number Insured Name Patient Relationship to Insured Coverage Start Date Coverage End Date Medicare National Govt Sv[employer] [address] [place] [address] [id number] Konrad Ferrera Self - patient is the insured Medical (General) History Medical History History ICD Code Atrial fibrillation Cor pulmonale (chroic) current use of anticoagulant therapy Gerd (Gastroesophageal reflux disease) Hemothorax History of Cardioversion hypercholesterolemia hypertension impaired glucose tolerance insomnia [facility] methotrexate user moderate COPD ( Chronic Obstructive [...]
--- OUTSIDE RECORDS SUMMARY | 2024-10-11 08:02 | XMS_ITS | Patient Health Record ---
Author Organization [facility] Address [address] [place] [address] Care Team Providers Care Manufacturing Process Technician Name Role Phone Los Jacques MD Primary Care Provider Zachary Zamorano Unavailable [phone] Allergies Allergen (clinical drug ingredient) Drug/Non Drug [...] Sodium 5 MG TAKE 1 TABLET BY [facility] DAILY PER PROTOCOL. TAKE ADDITIONAL TABLET [...] Problem Status W/U Status Risk Notes Problem [id number] Encounter for screening for malignant neoplasm of colon (Z12.11) Active confirmed Problem History of adenomatous polyp of colon (572430457) History of adenomatous polyp of colon (Z86.010) Active confirmed Problem Screening for malignant neoplasm of rectum (051231455) Encounter for screening for malignant neoplasm of rectum (Z12.12) Active confirmed Problem History of polyp of colon (situation) (456932360) History of colon polyps (Z86.010) Active confirmed Problem 706111356 Gastroesophageal reflux disease, esophagitis presence not specified (K21.9) Active confirmed Problem 04371806 Pharyngoesophage al dysphagia (R13.14) Active confirmed Problem Diverticulosis of colon (498900877) Diverticulosis of colon (K57.30) Active confirmed Plan [...] MEDICARE OF [place] [address] [place] [address] [id number] SEJAL IRAHEAT Self - patient is the insured MEDICAID OF [facility] [address] [place] [address] [id number] SEJAL IRAHETA Self - patient is the insured Medical (General) History Medical History History ICD Code HTN A.fib--seeing Hematoma in left side of rib s in relation to coughing--rib injury and a pleural effusion. Denies [place],DM,CVA,renal disease GERD Sleep apnea--uses CPAP Right leg [...] and several hyperplastic polyps removed COVID 01/2021-in [facility] [place] [place] for 17 days Surgical History Surgery Date(Month/Year) Tracheostomy at age 3 2 hammer toes /infection bottom of right foot Hernia repair-umbilical
--- OUTSIDE RECORDS SUMMARY | 2024-10-11 08:02 | XMS_ITS | Clinical Summary ---
Author Organization [facility] Address [address] [place] [address] Phone Care Team Providers Care Human Service Specialist Name Role Phone Los Jacques MD Primary Care Provider [phone] Allergies Active Allergy Reactions Criticality Noted Date [...] - 08/31/2024 11:59 PM EDT Hospital Encounter [facility] PET Scan [address] [place] [phone] Other nonspecific abnormal finding of lung field Discharge Disposition: Home or Self Care 08/08/2024 10:00 AM EDT Office Visit Orthopedic Surgery - [place] [address] [facility] [address] [place] [phone] Ry Gallagher, DPSara Ulcer of toe of right foot, limited to breakdown of skin ([facility] V24, [facility] V28) (Primary Dx); Acquired hammer toe of right foot; Hammer toe of left foot; Corns and callosities; Type II diabetes mellitus with peripheral circulatory disorder ([facility] V24, [facility] V28); Diabetic mononeuropathy simplex ([facility] V24, [facility] V28); Metatarsalgia of both feet; Pain in [...] Upcoming Encounters Date Type Department Care Team ([facility] st Contact Info) Description 11/30/2024 9:30 AM EDT Office Visit Orthopedic Surgery - [place] [address] [phone] Ry Gallagher, DPM [address] [address] Health Maintenance Due Date Last Done Comments [...] Panel) 01/31/2022 Colorectal Cancer Screening: Colonoscopy 01/31/2022 Falls Risk Assessment 01/31/2022 Hepatitis C Screening 01/31/2022 Medicare Annual Wellness Visit 01/31/2022 Social Influencers of Health Screening 01/31/2022 Diabetes: Annual Urine Albumin-Creatinine Ratio (uACR) 02/02/2024 Diabetes: Blood Sugar Contro l Test (HGBA1C) 02/02/2024 Depression Screening 03/01/2024 Influenza Vaccine (#1) 2024 10/30/2020 HIB Vaccines [...] Signed Date: 09/05/2024 11:32 ET Workstation ID: [id number] Transcribed By: Self Edit Transcribed Date: 09/05/2024 [...] Signed Date: 09/05/2024 11:32 ET Workstation ID: [id number] Transcribed By: Self Edit Transcribed Date: 09/05/2024 10:29 ET Tyler Masters MD IMG NM PROCEDURES Final Result from Last 3 Months Insurance MEDICARE Care Teams Human Service Specialist Relationship Specialty Start Date End Date Los Jacques MD [address] [place] [address] [address] [facility] [place] [address] PCP - General 10/24/21
--- NOTE | 2024-10-11 08:14 | MHC.OFFVISCO ---
Intake Intake Visit Reasons: Anticoagulation Allergies Penicillins (PCN) Allergy (Unknown, Verified 10/11/24 08:08) UNKNOWN- RXN CHILD/? HIVES Medication List - Last Reconciled 10/11/24 by Flori Gamboa RN adalimumab-aaty 40 mg (0.4 mL) subcut Q2W albuterol sulfate 90 mcg/actuation 2 puffs PO Q4-6H PRN ascorbic acid (vitamin C) 1,000 mg PO DAILY bumetanide 2 mg PO BID cholecalciferol (vitamin D3) 25 mcg PO DAILY compr.stocking,knee,long,large As directed 20-30 mm HG [CPAP As directed] diltiazem HCl CD 180 mg PO DAILY hydroxychloroquine 200 mg PO BID ipratropium-albuterol 0.5 mg-3 mg(2.5 mg base)/3 mL 3 mL inhalation Q4-6H PRN 30 days lisinopril 5 mg PO DAILY mecobalamin (vitamin B12) 1,000 mcg PO DAILY omeprazole 20 mg PO DAILY pravastatin 20 mg PO DAILY Trelegy Ellipta 200-62.5-25 mcg (mbknuofdlyp-iesdktrcy-spnnmdoi) 1 ea PO DAILY NS warfarin 5 mg See Protocol PO DAILY Nursing Note INR3.5-?? out of therapeutic range of 2-3 Medications and supplements reviewed Patient status: pt with increased anxiety due to issues with s/o Medications or supplements: medications reviewed Diet: appetite good Denies any signs and symptoms of bleeding or clotting or unusual bruising Bleeding, bruising, clotting discussed Nutritional guidance given: eat greens to lower Dose: pt already took warfarin today, take 2.5mg tomm then cont 5mg x 7 F/U INR Date : test at home in one week?? Patient verbalizing understanding of instructions given. meter to meter correlation done. pt with increased stress/anxiety. pt demonstrates good technique. one strip used. pt meter 3.3, acs meter 3.5 pt medications reviewed and risk scores done. pt meter memory checked and accurate x 5 previous. pt enc to discuss with pcp assitance dealing with stress Anti-Coag Initial Assessment Social Hx Patient Tobacco Use Status: Former Tobacco user Tobacco use type: Cigarette alcohol intake: former Alcohol intake frequency: does not drink Questionnaires HAS-BLED Does the patient had uncontrolled Hypertension?: No Does the patient have renal disease?: No Does the patient have liver disease?: No Does the patient have a history of stroke?: No Has the patient had major bleeding or predisposition to bleeding?: No Does the patient have labile INRs?: No Is the patient over 65 years of age?: Yes Is the patient on medications that gives them a predisposition to bleeding?: Yes Does the patient use alcohol?: Yes HAS-BLED Score: 3 CHADSVASC Age: 66-74 Gender: Male Does the patient have a history of CHF?: No Does the patient have a history of Hypertension?: Yes Does the patient have a history of Stroke/TIA/Thromboembolism?: No Does the patient have a history of Vascular Disease (prior [place], PAD or aortic plaque)?: Yes Does the patient have a history of Diabetes?: No CHADS VACS Score: 3 Jaci Prediction Score Rsk VTE Active Cancer: No Previous VTE, excluding superficial vein thrombosis: Yes Reduced mobility: No Already known Thrombophilic Condition: No With-in last month Trauma and/or Surgery: No Elderly 70 year or older: No Heart and/or Respiratory Failure: Yes Acute Myocardial infarction and/or Ischemic Stroke: No Acute Infection and/or Rheumatologic Disorder: Yes Obesity (BMI 30 or greater): Yes Ongoing Hormonal Treatment: No Score: 6 Jaci Score less than 4; Low Risk of VTE Jaci Score 4 or greater; High Risk of VTE Coding Level of Care Code Est Patient Level 2 Diagnoses Current use of anticoagulant therapy Z79.01 Assessment & Plan Assessment & Plan (1) Current use of anticoagulant therapy: Code(s): Z79.01 - prison (current) use of anticoagulants Category: Medical Medications: New acetaminophen 1,000 mg PO TID PRN
[2024-10-11 08:27] LABS: Prothrombin Time Whole Bld POC 42.0 sec (11.1-13.5); ~PT, ~INR - Anti Coag Clinic 3.5 (0.9-1.1)
== END 2024-10-11 09:12 | disposition home or self-care (01) ==
LOC: HO.ACS 07:59
PROVIDERS: PCP Internal Medicine; Visit Provider Internal Medicine Medical Oncology
DX: Z79.01 Long term (current) use of anticoagulants (principal)

== ENCOUNTER → 2024-10-11 07:59 | Outpatient (BNVA) | payer MEDICARE, SELFPAY | PROVIDERS: PCP Internal Medicine; Visit Provider Internal Medicine Medical Oncology | DX: Z51.81 Encounter for therapeutic drug level monitoring (principal); Z79.01 Long term (current) use of anticoagulants | CPT/HCPCS: 85610; 99212 ==

== ENCOUNTER 2024-10-12 10:06 | Outpatient (AMB) | payer MEDICARE, SELFPAY ==
--- NOTE | 2024-10-12 10:08 | A.OFFPC_ITS ---
Vital Signs 10/12/24 10:09 Height 6 ft 2 in Weight 256 lb 4 oz BMI 32.9 BP 130/80 Blood Pressure Location Lt brachial Position Sitting Pulse 64 Pulse Source Pulse Oximeter Temp 97.3 F Temp Source Temporal Artery Scan Pulse Oximetry (%) 96 Oxygen Delivery Method Room Air Intake Visit Reasons: COPD, A fib Intake Note: Patient is here to follow up on COPD, Afib. Decorating Equipment Setter Required: No Refrigerator Cabinetmaker: Not Required per policy Accompanied by: Self / Same As Patient Allergies Penicillins (PCN) Allergy (Unknown, Verified 10/12/24 10:09) UNKNOWN- RXN CHILD/? HIVES Medication List - Last Reconciled 10/12/24 by Los Jacques MD acetaminophen 1,000 mg PO TID PRN adalimumab-aaty 40 mg (0.4 mL) subcut Q2W albuterol sulfate 90 mcg/actuation 2 puffs PO Q4-6H PRN alprazolam 0.25 mg PO BEDTIME PRN ascorbic acid (vitamin C) 1,000 mg PO DAILY bumetanide 2 mg PO BID cholecalciferol (vitamin D3) 25 mcg PO DAILY compr.stocking,knee,long,large As directed 20-30 mm HG [CPAP As directed] diltiazem HCl CD 180 mg PO DAILY hydroxychloroquine 200 mg PO BID ipratropium-albuterol 0.5 mg-3 mg(2.5 mg base)/3 mL 3 mL inhalation Q4-6H PRN 30 days lisinopril 5 mg PO DAILY mecobalamin (vitamin B12) 1,000 mcg PO DAILY omeprazole 20 mg PO DAILY pravastatin 20 mg PO DAILY Trelegy Ellipta 200-62.5-25 mcg (lxqahviigwq-jheurmxco-avxzzdls) 1 ea PO DAILY NS warfarin 5 mg See Protocol PO DAILY Tobacco use date assessed: 10/12/24 Fall risk assessment: No Falls in past year Last assessed Fall Risk: 10/12/24 Dental Screening Dental Screen Date: 03/16/24 [facility] Medical History (Updated 10/12/24 @ 10:50 by Los Jacques MD) Right leg DVT Personal history of nicotine dependence COPD (chronic obstructive pulmonary disease) Restless legs syndrome (RLS) Neuropathy Current use of anticoagulant therapy COVID-19 virus infection Post covid-19 condition, unspecified Persistent atrial fibrillation On methotrexate therapy Cor pulmonale (chronic) Insomnia Hemothorax Vitamin D deficiency Right renal stone Peripheral vascular disease GERD (gastroesophageal reflux disease) Impaired glucose tolerance Hypercholesterolemia Hypertension Severe obstructive sleep apnea Primary osteoarthritis of knees, bilateral 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 Mother Rheumatoid arteritis Sister Breast cancer Other Mental health disorder Substance use disorder Social History (Updated 10/12/24 @ 10:15 by PRATIMA Aceves) Household Members: Significant Other Housing: Apartment Do you presently have visiting nurse or other home services: No Alcohol intake: current Alcohol intake frequency: a few times a month Alcohol type: beer Patient Tobacco Use Status: Former Tobacco user Tobacco use type: Cigarette Years Smoked: 49 e-Cigarette/Vaping Use: Never Used Second Hand Smoke Exposure: Yes Substance Use Type: Marijuana service: No Current occupational status: retired Cognitive needs: No Hearing needs: No Vision needs: Yes Questionnaire Thrive Questionnaire Date Thrive assessed: 03/16/24 MARELY-7 AMB Questionnaire MARELY-7 Date MARELY - 7 assessed: 03/16/24 Source: Developed by Drs. Zachary Epps, Aleta Stone, Chaparro Nation and colleagues, with an educational anastacio from [employer]. Physical exam (Primary Care) Vital Signs: Last Vital Signs Temp 97.3 F 10/12/24 10:09 Pulse 64 10/12/24 10:09 BP 130/80 10/12/24 10:09 Pulse Ox 96 10/12/24 10:09 Oxygen Delivery Method Room Air 10/12/24 10:09 BMI result Body Mass Index 32.9 Tobacco/Smoking Status: Tobacco use Status Tobacco use date assessed 10/12/24 10/12/24 10:17 Patient Tobacco Use Status Former Tobacco user 10/12/24 10:17 Tobacco use type Cigarette 10/12/24 10:17 e-Cigarette/Vaping Use Never Used 08/14/25 10:17 Thrive Assessment: Date of Thrive Assessment Date Thrive assessed 03/16/24 10/12/24 10:17 Const General: alert; No acute distress Eyes Conjunctivae: conjunctivae normal Resp Auscultation: clear to auscultation bilaterally Cardio Rate: regular rate Rhythm: regular rhythm GI Inspection: Yes normal to inspection Extrem General: Yes normal to inspection and No edema Coding Level of Care Code Est Pt Level 4 (99667) Complex EM visit Add On G2211 Diagnoses Persistent atrial fibrillation I48.19 Hypercholesterolemia E78.00 Impaired glucose tolerance R73.02 Obesity (BMI 30.0-34.9) E66.9 Seronegative rheumatoid arthritis M06.00 Foot ulcer L97.509 Moderate COPD (chronic obstructive pulmonary disease) J44.9 Severe obstructive sleep apnea G47.33 Personal history of nicotine dependence Z87.891 Lower extremity edema R60.0 Pulmonary nodules R91.8 Generalized anxiety disorder F41.1 Assessment & Plan Assessment & Plan (1) Persistent atrial fibrillation: Comment: Cardioversion August 2015 echo ejection fraction 65-70% July 2018 Holter atrial fibrillation with pauses 3.2 seconds August 2018 echo March 2019 EF 65-70% Code(s): I48.19 - Other persistent atrial fibrillation Category: Medical Plan: Continuing with anticoagulation with Coumadin and diltiazem 180 mg once a day (2) Hypercholesterolemia: Code(s): E78.00 - Pure hypercholesterolemia, unspecified Category: Medical Plan: Avoid fried foods, chicken skin, eggs, butter margarine, pastries and meat. Be it pork or beef they have a lot of cholesterol LDL goal of less than 130 and triglyceride of less than 150 on pravastatin 20 mg once a day (3) Impaired glucose tolerance: Code(s): R73.02 - Impaired glucose tolerance (oral) Category: Medical Plan: Decrease the amount of carbohydrate intake, pasta, bread, rice and potatoes are all sugar and that is aside from all the sweet stuff, remember that fruits are good but they are Sweet also. (4) Obesity (BMI 30.0-34.9): Code(s): E66.9 - Obesity, unspecified Category: Medical Plan: Diet and exercise (5) Seronegative rheumatoid arthritis: Comment: Methotrexate- 2017- January 2022, discontinued due to right lower extremity cellulitis Humira 2019-January 2022, discontinued due to right lower extremity cellulitis Prednisone- off since October 2019 [facility] 10/21 Code(s): M06.00 - Rheumatoid arthritis without rheumatoid factor, unspecified site Category: Medical Plan: Patient follows up with Rheumatology on Plaquenil and started on Humira (6) Foot ulcer: Code(s): L97.509 - Non-pressure chronic ulcer of other part of unspecified foot with unspecified severity Category: Medical Plan: Continue to follow-up with podiatry (7) Moderate COPD (chronic obstructive pulmonary disease): Code(s): J44.9 - Chronic obstructive pulmonary disease, unspecified Category: Medical Plan: Patient follows up with Pulmonary on Trelegy and remember to rinse mouth after using. (8) Severe obstructive sleep apnea: Comment: CPAP use Code(s): G47.33 - Obstructive sleep apnea (adult) (pediatric) Category: Medical Plan: Continue to use the CPAP more than 4 hours a night and benefits from this (9) Personal history of nicotine dependence: Comment: Lung cancer screening program Code(s): Z87.891 - Personal history of nicotine dependence Category: Medical Plan: CT scan done July 2024 right upper lobe pulmonary nodule follow-up in 6 months (10) Lower extremity edema: Code(s): R60.0 - Localized edema Category: Medical Plan: When sitting down elevate the legs, exercise, and support stockings on diuretics (11) Pulmonary nodules: Code(s): R91.8 - Other nonspecific abnormal finding of lung field Category: Medical Plan: Patient is being followed up by Pulmonary and opted to follow-up [address] scan (12) Generalized anxiety disorder: Code(s): F41.1 - Generalized anxiety disorder Category: Medical Plan History of Present Illness The patient is a 69-year-old male presenting for a follow-up visit to manage multiple chronic conditions, including severe obstructive sleep apnea, COPD, and rheumatoid arthritis. The patient has a history of severe obstructive sleep apnea, managed with CPAP therapy, which he uses for more than 4 hours a night, benefiting from its use. He also has chronic obstructive pulmonary disease (COPD) and is currently on Trelegy, with instructions to rinse his mouth after use. The patient has rheumatoid arthritis and is under the care of rheumatology, having been started on Humira recently. He reports improvement in joint pain since starting the medication. The patient has a history of hypercholesterolemia and is on pravastatin with a goal of maintaining LDL cholesterol below 130 mg/dL. His last LDL cholesterol was 128 mg/dL. The patient has impaired glucose tolerance with a previous blood sugar reading of 127 mg/dL, and dietary modifications have been recommended. He is advised to monitor his diet closely to prevent progression to diabetes. The patient has a history of right leg deep vein thrombosis and is on anticoagulation therapy with Coumadin. He also experiences lower extremity swelling, for which he was prescribed additional diuretics, including Bumex and metolazone. The patient has a solitary pulmonary nodule with mild FDG activity in the right upper lobe, identified on a PET scan. He has opted for continued monitoring with a follow-up CT scan scheduled in six months. The patient has a right toe ulcer and is following up with podiatry for management. Health Maintenance - Colonoscopy last performed in 2016, follow-up recommended. - Lung cancer screening with CT scan scheduled in six months for pulmonary nodule monitoring. Social History - History of smoking, currently not specified if ongoing. - Reports weight loss of 18 pounds, currently weighing 255 pounds. - Dietary habits include limited red meat consumption, focus on poultry and fish, and monitoring of cholesterol intake. Review of Systems - Cardiovascular: Reports atrial fibrillation, denies chest pain. - Respiratory: Reports use of CPAP for sleep apnea, denies dyspnea at rest. - Musculoskeletal: Reports improvement in joint pain with Humira. - Endocrine: Reports impaired glucose tolerance, denies symptoms of hypoglycemia. Physical Exam Results - Labs: Blood sugar 127 mg/dL, LDL cholesterol 128 mg/dL, normal blood count, microcytosis noted, normal platelet count, normal electrolytes, normal renal function, mildly elevated liver enzymes at 40. - Imaging: PET scan showed mild FDG activity in right upper lobe nodule, CT scan scheduled for follow-up in six months. Plan The patient will continue using CPAP therapy for obstructive sleep apnea, ensuring usage for more than 4 hours nightly to maintain benefits. For COPD management, the patient will continue Trelegy with instructions to rinse the mouth post-inhalation to prevent oral complications. Rheumatoid arthritis management includes continuation of Humira, with monitoring of joint pain improvement. The patient is advised to maintain regular follow-ups with rheumatology. For hypercholesterolemia, the patient will continue pravastatin with a target LDL cholesterol of less than 130 mg/dL. Dietary modifications are recommended to support cholesterol management. The patient will monitor blood glucose levels closely, with dietary adjustments to prevent progression to diabetes. A follow-up fasting blood sugar test is planned to reassess glucose tolerance. Anticoagulation therapy with Coumadin will continue for the history of DVT, with regular monitoring of INR levels. Additional diuretics, including Bumex and metolazone, are prescribed for managing lower extremity swelling. The solitary pulmonary nodule will be monitored with a follow-up CT scan in six months, as the patient opted against biopsy. The right toe ulcer will be managed with ongoing podiatry follow-up. Patient was informed and verbally consented to the use of an ambient scribe for clinic note documentation during this visit. Discussion Notes During the visit, I discussed with the patient the importance of continuing CPAP therapy for sleep apnea and the use of Trelegy for COPD, emphasizing the need to rinse the mouth after use. We reviewed the management of rheumatoid arthritis with Humira and the need for regular follow-ups with rheumatology. I explained the significance of maintaining cholesterol levels with pravastatin and dietary modifications, as well as monitoring blood glucose levels to prevent diabetes progression. The patient was informed about the follow-up CT scan for the pulmonary nodule and the decision to monitor rather than biopsy at this time. We also discussed the continuation of anticoagulation therapy with Coumadin and the management of lower extremity swelling with diuretics. The patient was advised to continue podiatry follow-up for the right toe ulcer. Patient Instructions - Continue using CPAP for sleep apnea, ensuring more than 4 hours of use nightly. - Use Trelegy for COPD and rinse mouth after each use. - Continue Humira for rheumatoid arthritis and follow up with rheumatology. - Maintain cholesterol management with pravastatin and dietary changes. - Monitor blood glucose levels and follow dietary recommendations to prevent diabetes. - Continue anticoagulation therapy with Coumadin and monitor INR levels. - Take prescribed diuretics for lower extremity swelling. - Follow up with podiatry for right toe ulcer management. - Attend scheduled CT scan in six months for pulmonary nodule monitoring. Orders: Orders Comprehensive Met. Panel 3 Months R73.02 - Impaired glucose tolerance (oral) Complete Blood Count Auto Diff 3 Months R73.02 - Impaired glucose tolerance (oral) Lipid Panel 3 Months E78.00 - Pure hypercholesterolemia, unspecified, R73.02 - Impaired glucose tolerance (oral) Thyroid Stimulating Hormone 3 Months R73.02 - Impaired glucose tolerance (oral) Free T4 (Free Thyroxine) 3 Months R73.02 - Impaired glucose tolerance (oral) Hemoglobin A1c 3 Months R73.02 - Impaired glucose tolerance (oral) Vitamin B12 and Folate 3 Months R73.02 - Impaired glucose tolerance (oral) Prostate Specific Antigen Scr 3 Months R73.02 - Impaired glucose tolerance (oral) Erythrocyte Sedimentation Rate 3 Months R73.02 - Impaired glucose tolerance (oral) C Reactive Protein 3 Months R73.02 - Impaired glucose tolerance (oral) Referrals Psychiatry Referral F41.1 - Generalized anxiety disorder Medications: New alprazolam 0.25 mg PO BEDTIME PRN 14 tabs 0RF sleep F41.1 - Generalized anxiety disorder
[2024-10-12 10:09] VITALS: BP 130/80; PULSE 64; TEMP 36.3; O2SAT 96; BMI 32.9
--- OUTSIDE RECORDS SUMMARY | 2024-10-12 10:49 | XMS_ITS | Patient Health Record ---
Author Organization [facility] jaki [place] Address [address] [facility] [place] [address] Care Team Providers Care Valving Machine Operator Name Role Phone Los Jacques Primary Care Provider Paul Ivey Unavailable [phone] Allergies Allergen (clinical drug ingredient) Drug/Non Drug [...] Active confirmed Problem Chronic ulcer of foot (245604924) Non-pressure chronic ulcer of other part of left foot with fat layer exposed (L97.522) Active confirmed Problem Bilateral atherosclerosis of arteries of lower limbs (disorder) (62974047950150831 ) Unspecified atherosclerosis of [place] arteries of extremities, bilateral legs (I70.203) Active confirmed Problem Acquired hammer toe of right foot (9585400761032453) Other hammer toe(s) (acquired), right foot (M20.41) Active confirmed Problem Acquired hammer toe of left foot (3391784185007484) Other hammer toe(s) (acquired), left foot (M20.42) Active confirmed Problem Neuropathy (830867872) Neuropathy (G62.9) Active confirmed Problem Acute osteomyelitis of ankle and/or foot (062490955) Osteomyelitis of foot, right, acute (M86.171) Active confirmed Problem Localized, primary osteoarthritis of the ankle and/or foot (475164386) Primary osteoarthritis of right foot (M19.071) Active confirmed Plan Of Treatment Pending Test Test Name Order Date X ray : Foot, left 3V 10/07/2021 X ray : Foot, right 3V 10/07/2021 X ray : Foot, right 3V 07/28/2022 [id number] SKIN/TISSUE 07/28/2022 [id number] SKIN/TISSUE 07/15/2022 [id number] SKIN/TISSUE 02/04/2022 84878-[id number] SKIN/TISSUE 10/07/2021 [id number] SKIN LESIONS, 2 TO 4 10/08/19 [id number] SKIN LESIONS, 2 TO 4 05/14/19 40095-MLUV SKIN LESIONS, 2 TO 4 12/23/19 [id number] OF HEMATOMA/FLUID 022 Insurance Providers Payer Name Payer Address Payer Phone Subscriber Number Group Number Insured Name Patient Relationship to Insured Coverage Start Date Coverage End Date Medicare National Govt Svcs Inc [address] [facility] [place] [address] [id number] Konrad Ferrera Self - patient is the insured Medical (General) History Medical History History ICD Code Atrial fibrillation Cor pulmonale (chroic) current use of anticoagulant therapy Gerd (Gastroesophageal reflux disease) Hemothorax History of Cardioversion hypercholesterolemia hypertension impaired glucose tolerance insomnia senior living methotrexate user moderate COPD ( Chronic Obstructive [...]
--- OUTSIDE RECORDS SUMMARY | 2024-10-12 10:49 | XMS_ITS | Patient Health Record ---
Author Organization [facility] Address [address] [place] [address] Care Team Providers Care Gas Turbine Powerplant Mechanic Name Role Phone Los Jacques MD Primary Care Provider Zachary Zamorano Unavailable [phone] Allergies Allergen (clinical drug ingredient) Drug/Non Drug [...] Sodium 5 MG TAKE 1 TABLET BY [facility] DAILY PER PROTOCOL. TAKE ADDITIONAL TABLET [...] Problem Status W/U Status Risk Notes Problem 707310868 Encounter for screening for malignant neoplasm of colon (Z12.11) Active confirmed Problem History of adenomatous polyp of colon (691247423) History of adenomatous polyp of colon (Z86.010) Active confirmed Problem Screening for malignant neoplasm of rectum (772918826) Encounter for screening for malignant neoplasm of rectum (Z12.12) Active confirmed Problem History of colon polyps (Z86.010) Active confirmed Problem 629539001 Gastroesophageal reflux disease, esophagitis presence not specified (K21.9) Active confirmed Problem 90299737 Pharyngoesophage al dysphagia (R13.14) Active confirmed Problem Diverticulosis of colon (083640156) Diverticulosis of colon (K57.30) Active confirmed Plan [...] MEDICARE OF [place] [address] [place] [address] [phone] [id number] SEJAL IRAHETA Self - patient is the insured MEDICAID OF [facility] [address] [place] [address] [id number] SEJAL IRAHETA Self - patient is the insured Medical (General) History Medical History History ICD Code HTN A.fib--seeing Hematoma in left side of rib s in relation to coughing--rib injury and a pleural effusion. Denies [place],DM,CVA,renal disease GERD Sleep apnea--uses CPAP Right leg [...] and several hyperplastic polyps removed COVID 01/2021-in [facility] for 17 days Surgical History Surgery Date(Month/Year) Tracheostomy at age 3 2 hammer toes /infection bottom of right foot Hernia repair-umbilical
--- OUTSIDE RECORDS SUMMARY | 2024-10-12 10:49 | XMS_ITS | Clinical Summary ---
Author Organization [address] [facility] Address [address] [place] [address] Phone Care Team Providers Care Rocket Assembly Operator Name Role Phone Los Jacques MD Primary Care Provider [phone] Allergies Active Allergy Reactions Criticality Noted Date [...] - 08/31/2024 11:59 PM EDT Hospital Encounter [facility] PET Scan [address] [place] [phone] Other nonspecific abnormal finding of lung field Discharge Disposition: Home or Self Care 08/08/2024 10:00 AM EDT Office Visit Orthopedic Surgery - [place] [address] [facility] [address] [place] [phone] Ry Gallagher, DPSara Ulcer of toe of right foot, limited to breakdown of skin ([facility] V24, [facility] V28) (Primary Dx); Acquired hammer toe of right foot; Hammer toe of left foot; Corns and callosities; Type II diabetes mellitus with peripheral circulatory disorder ([facility] V24, [facility] V28); Diabetic mononeuropathy simplex ([facility] V24, [facility] V28); Metatarsalgia of both feet; Pain [...] Upcoming Encounters Date Type Department Care Team ([facility] st Contact Info) Description 11/30/2024 9:30 AM EDT Office Visit Orthopedic Surgery - [place] [address] [phone] Ry Gallagher, DPM [address] [address] Health Maintenance Due Date Last Done Comments [...] Signed Date: 09/05/2024 11:32 ET Workstation ID: [id number] Transcribed By: Self Edit Transcribed Date: 09/05/2024 [...] Signed Date: 09/05/2024 11:32 ET Workstation ID: [id number] Transcribed By: Self Edit Transcribed Date: 09/05/2024 10:29 ET Tyler Masters MD IMG NM PROCEDURES Final Result from Last 3 Months Insurance MEDICARE Care Teams Rocket Assembly Operator Relationship Specialty Start Date End Date Los Jacques MD [address] [place] [address] [address] [facility] [place] [address] PCP - General 10/24/21
== END 2024-10-12 11:09 | disposition home or self-care (01) ==
PROVIDERS: PCP Internal Medicine; Visit Provider Internal Medicine
DX: I48.19 Other persistent atrial fibrillation (principal); M06.00 Rheumatoid arthritis without rheumatoid factor, unspecified site; L97.509 Non-pressure chronic ulcer of other part of unspecified foot with unspecified severity; J44.9 Chronic obstructive pulmonary disease, unspecified; E66.9 Obesity, unspecified; Z68.32 Body mass index [BMI] 32.0-32.9, adult; E78.00 Pure hypercholesterolemia, unspecified; R73.02 Impaired glucose tolerance (oral); G47.33 Obstructive sleep apnea (adult) (pediatric); Z87.891 Personal history of nicotine dependence; R60.0 Localized edema; R91.8 Other nonspecific abnormal finding of lung field

== ENCOUNTER → 2024-10-12 10:06 | Outpatient (BNVA) | payer MEDICARE, SELFPAY | PROVIDERS: PCP Internal Medicine; Visit Provider Internal Medicine | DX: I48.19 Other persistent atrial fibrillation (principal); E78.00 Pure hypercholesterolemia, unspecified; R73.02 Impaired glucose tolerance (oral); M06.00 Rheumatoid arthritis without rheumatoid factor, unspecified site; J44.9 Chronic obstructive pulmonary disease, unspecified; G47.33 Obstructive sleep apnea (adult) (pediatric); R60.0 Localized edema; R91.8 Other nonspecific abnormal finding of lung field; F41.1 Generalized anxiety disorder; E66.9 Obesity, unspecified; Z68.32 Body mass index [BMI] 32.0-32.9, adult; Z71.3 Dietary counseling and surveillance; Z87.891 Personal history of nicotine dependence | CPT/HCPCS: 99212 ==

== ENCOUNTER 2024-11-21 09:53 | Outpatient (AMB) | payer MEDICARE, SELFPAY ==
--- NOTE | 2024-11-21 10:03 | A.OFFVIS_ITS ---
Vital Signs 11/21/24 10:11 Height 6 ft 2 in Weight 279 lb 1.683 oz BMI 35.8 BP 120/60 Blood Pressure Location Lt brachial Position Sitting Pulse 59 Pulse Source Pulse Oximeter Pulse Oximetry (%) 98 Oxygen Delivery Method Room Air Intake Visit Reasons: f/u RA Intake Note: Patient presents for RA follow up. Allergies Penicillins (PCN) Allergy (Unknown, Verified 11/21/24 10:10) UNKNOWN- RXN CHILD/? HIVES HPI Comments Details: Patient is a 69-year-old male previous smoker with COPD, JENNIFER on CPAP, hypertension, hyperlipidemia complicated by peripheral vascular disease and foot ulcers, persistent AFib on warfarin, polyarticular osteoarthritis and seronegative rheumatoid arthritis here today for follow up Interval History: Patient last seen 07/19/24 with me - On Hydroxychloroquine 200mg bid - Patient is complaining of bilateral hand pain associated with morning stiffness lasting for several hours - Ulcers have healed - Started on Humira Today - On Humira 40mg SC every 2 weeks and Hydroxychloroquine 200mg bid - Feels that the HUmira is doing something - But still has some hand stiffness - Has been having worsening lower leg edema, no new diagnosis of heart failure but known cor pulmonale Rheumatologic History: Methotrexate- 2017- January 2022, discontinued due to right lower extremity cellulitis Humira 2019-January 2022, discontinued due to right lower extremity cellulitis Prednisone- off since October 2019 HCQ 10/21 effective Current Rheumatology Medication(s): Hydroxychloroquine 200mg daily Humira 40mg SC every 2 weeks [facility] Medical History (Updated 11/21/24 @ 10:59 by Maren Covarrubias MD) Right leg DVT Personal history of nicotine dependence COPD (chronic obstructive pulmonary disease) Restless legs syndrome (RLS) Neuropathy Current use of anticoagulant therapy COVID-19 virus infection Post covid-19 condition, unspecified Persistent atrial fibrillation On methotrexate therapy Cor pulmonale (chronic) Insomnia Hemothorax Vitamin D deficiency Right renal stone Peripheral vascular disease GERD (gastroesophageal reflux disease) Impaired glucose tolerance Hypercholesterolemia Hypertension Severe obstructive sleep apnea Primary osteoarthritis of knees, bilateral group home methotrexate user Seronegative rheumatoid arthritis Moderate COPD (chronic obstructive pulmonary disease) Surgical History History of cardioversion Hx of foot surgery History of umbilical hernia repair Hx of tonsillectomy S/P emergency tracheotomy for assistance in breathing Family History Father No problems noted. Mother Rheumatoid arteritis Sister Breast cancer Other Mental health disorder Substance use disorder Social History Household Members: Significant Other Housing: Apartment Do you presently have visiting nurse or other home services: No Alcohol intake: current Alcohol intake frequency: a few times a month Alcohol type: beer Patient Tobacco Use Status: Former Tobacco user Tobacco use type: Cigarette Years Smoked: 49 e-Cigarette/Vaping Use: Never Used Second Hand Smoke Exposure: Yes Substance Use Type: Marijuana service: No Current occupational status: retired Cognitive needs: No Hearing needs: No Vision needs: Yes Review of Systems Const Details: Review of Systems Constitutional: Denies fever, chills, weight loss ENT: Denies vision changes, eye pain or eye redness, dental caries, dry mouth GI: Denies nausea, vomiting, diarrhea, abdominal pain, change in BM Pulm: Denies SOB, HURTADO, hemoptysis, wheezing Cards: Denies chest pain, palpitations Skin: Denies Raynaud's, rash, nail changes, photosensitivity, PATIENT SCHEDULER: Denies headaches, weakness, paresthesias, recurrent falls MSK: as per HPI All other systems reviewed and are unremarkable except noted above Physical Exam Exam Exam: Vital signs reviewed Physical Examination CONSTITUITIONAL Patient alert and cooperative. Well appearing and in no apparent painful distress MSK Hands * Right Hand: Able to make a fist. No swelling or tenderness to palpation of the MCPs, PIPs or DIPs. No deformities noted. * Left Hand: Able to make a fist. No swelling or tenderness to palpation of the MCPs, PIPs or DIPs. No deformities noted. Wrists * Right Wrist: Full ROM to flexion and extension. No swelling or TTP * Left Wrist: Full ROM to flexion and extension. No swelling or TTP Elbows * Right Elbow: Full ROM. No swelling or TTP. No TTP of the medial epicondyle. No TTP of the lateral epicondyle * Left Elbow: Full ROM. No swelling or TTP. No TTP of the medial epicondyle. No TTP of the lateral epicondyle Shoulders * Right shoulder: Full ROM. No swelling noted. No TTP of the AC joint. No TTP of the subacromial bursa. No TTP of the posterior shoulder * Left shoulder: Full ROM. No swelling noted. No TTP of the AC joint. No TTP of the subacromial bursa. No TTP of the posterior shoulder Hips * Right hip: Good ROM. No pain elicited with hip flexion/internal rotation/external rotation * Left hip: Good ROM. No pain elicited with hip flexion/internal rotation/external rotation Hip bursa: No tenderness to palpation bilaterally Knees * Right knee: Decreased ROM and knee swelling. No TTP of the knee joint line. No TTP of pes anserine bursa * Left knee: Decreased ROM and knee swelling. No TTP of the knee joint line. No TTP of pes anserine bursa. Lower extremity * Lower extremity edema bilaterally Ankles * Right ankle: Good ankle dorsiflexion and plantar flexion. * Left ankle: Good ankle dorsiflexion and plantar flexion. Feet * Right foot: Negative squeeze test * Left foot: Negative squeeze test Tender points? * No tenderness to palpation of the bilateral trapezius, supraspinatus, anterior costochondral junctions, bilateral suboccipital muscle insertions SKIN No rashes Vital Signs: Last Vital Signs Pulse 59 11/21/24 10:11 BP 120/60 11/21/24 10:11 Pulse Ox 98 11/21/24 10:11 Oxygen Delivery Method Room Air 11/21/24 10:11 BMI result Body Mass Index 35.8 Results Reviewed Results Reviewed: Laboratory Tests 07/17/24 07:13 WBC 8.3 RBC 4.33 L Hgb 14.7 Hct 44.1 Plt Count 210 ESR 12 Sodium 144 Potassium 4.3 Chloride 105 Carbon Dioxide 29 BUN 20 H Creatinine 0.94 AST 40 H ALT 23 Alkaline Phosphatase 57 C-Reactive Protein 3.26 H Assessment & Plan Assessment & Plan (1) Seronegative rheumatoid arthritis: Comment: Methotrexate- 2017- January 2022, discontinued due to right lower extremity cellulitis Humira 2019-January 2022, discontinued due to right lower extremity cellulitis Prednisone- off since October 2019 HCQ 10/21 - Humira Code(s): M06.00 - Rheumatoid arthritis without rheumatoid factor, unspecified site Category: Medical Plan: #Seronegative RA Patient is a 69-year-old male with seronegative rheumatoid arthritis here today for follow up. Added Humira the last visit due to moderate disease activity No history of heart failure but will consider changing the medication if this develops. Last ECHO 2022 had normal EF Plan - Plaquenil 200mg bid - Humira 40mg SC every other week - Labs today: CBC, CMP, ESR, CRP, Hepatitis panel and T spot - RTC 4 months - Labs before visit: CBC, CMP, ESR, CRP (2) Polyarticular osteoarthritis: Code(s): M15.9 - Polyosteoarthritis, unspecified Plan: #Polyarticular OA Patient with polyarticular OA typically affecting the hands and the knees. Will reschedule for an appointment for knee injections (3) Encounter for monitoring of hydroxychloroquine therapy: Code(s): Z51.81 - Encounter for therapeutic drug level monitoring; Z79.899 - Other termite inspector (current) drug therapy Plan: #Long-term Use of Hydroxychloroquine Discussed with patient the risks and benefits of hydroxychloroquine in managing the rheumatic condition Benefits include: - Reduced pain, reduce mortality, maintenance of remission and reduction of flares Risks include: - GI upset, skin hyperpigmentation, retinal toxicity (especially after more than 5 years of use), myopathy Advised yearly ophthalmology visits Last ophthalmology visit: 09/2023 (4) Encounter for monitoring of adalimumab therapy: Code(s): Z51.81 - Encounter for therapeutic drug level monitoring; Z79.620 - group home (current) use of immunosuppressive biologic Plan: #Long-term Use of TNF Inhibitors: Humira Discussed with the patient the benefits and risks of TNF inhibitors for the management of the rheumatic condition Benefits include reduce pain, maintenance of remission and reduction of flares as well as ?progression of the disease Risks include injection sites/infusion reactions, serious infections (such as bacterial infections, opportunistic infections), malignancy, delaminating syndromes, autoimmune phenomena, CHF exacerbations, palmar plantar psoriasis and cytopenias Recommended rotating injection sites, and holding medication during and for up to 1 week after resolution of a febrile illness or open skin wound Plan I spent 35 minutes reviewing the record and labs, taking a history, examining the patient, discussing the treatment plan, ordering diagnostic work up and documenting in the medical record Coding Level of Care Code Est Pt Level 4 (00804) Complex EM visit Add On G2211 Diagnoses Seronegative rheumatoid arthritis M06.00 Polyarticular osteoarthritis M15.9 Encounter for monitoring of hydroxychloroquine therapy Z51.81; Z79.899 Encounter for monitoring of adalimumab therapy Z51.81; Z79.620
[2024-11-21 10:11] VITALS: BP 120/60; PULSE 59; O2SAT 98; BMI 35.8
--- OUTSIDE RECORDS SUMMARY | 2024-11-21 11:53 | XMS_ITS | Patient Health Record ---
Author Organization [facility] Address [address] [place] [address] Care Team Providers Care Loss Prevention And Safety Manager Name Role Phone Los Jacques MD Primary Care Provider Zachary Zamorano Unavailable [phone] Allergies Allergen (clinical drug ingredient) Drug/Non Drug [...] Sodium 5 MG TAKE 1 TABLET BY [facility] DAILY PER PROTOCOL. TAKE ADDITIONAL TABLET DIRECTED [...] Problem Status W/U Status Risk Notes Problem 820902315 Encounter for screening for malignant neoplasm of colon (Z12.11) Active confirmed Problem History of adenomatous polyp of colon (141117577) History of adenomatous polyp of colon (Z86.010) Active confirmed Problem Screening for malignant neoplasm of rectum (877286511) Encounter for screening for malignant neoplasm of rectum (Z12.12) Active confirmed Problem History of polyp of colon (situation) (141133609) History of colon polyps (Z86.010) Active confirmed Problem 815293637 Gastroesophageal reflux disease, esophagitis presence not specified (K21.9) Active confirmed Problem 74206069 Pharyngoesophage al dysphagia (R13.14) Active confirmed Problem Diverticulosis of colon (787515456) Diverticulosis of colon (K57.30) Active confirmed Plan [...] MEDICARE OF [place] [address] [place] [address] [id number] SEJAL IRAHETA Self - patient is the insured MEDICAID OF [facility] [address] [place] [address] [id number] SEJAL IRAHETA Self - patient is the insured Medical (General) History Medical History History ICD Code HTN A.fib--seeing Hematoma in left side of rib s in relation to coughing--rib injury and a pleural effusion. Denies [place],DM,CVA,renal disease GERD Sleep apnea--uses CPAP Right leg [...] and several hyperplastic polyps removed COVID 01/2021-in [facility] for 17 days Surgical History Surgery Date(Month/Year) Tracheostomy at age 3 2 hammer toes /infection bottom of right foot Hernia repair-umbilical
--- OUTSIDE RECORDS SUMMARY | 2024-11-21 11:53 | XMS_ITS | Clinical Summary ---
Author Organization 175 [facility] Address [address] [place] [address] Phone Care Team Providers Care Chemical Pathologist Name Role Phone Los Jacques MD Primary [...] - 08/31/2024 11:59 PM EDT Hospital Encounter [facility] PET Scan [address] [place] [address] Other nonspecific abnormal finding of lung field Discharge Disposition: Home or Self Care from Last 3 Months Social History Tobacco [...] Care Team (Late st Contact Info) Description 11/30/2024 9:30 AM EDT Office Visit Orthopedic Surgery - [place] [address] [phone] Ry Gallagher, DPM [address] [phone] Health Maintenance Due Date Last Done Comments COVID-19 Vaccine (#1) 02/14/1960 DTaP,Tdap,and Td Vaccines (1 - Tdap) 1974 [...] 01/31/2022 Social Influencers of Health Screening 01/31/2022 Depression Screening 03/01/2024 Influenza Vaccine (#1) 2024 [...] Signed Date: 09/05/2024 11:32 ET Workstation ID: [id number] Transcribed By: Self Edit Transcribed Date: 09/05/2024 [...] Signed Date: 09/05/2024 11:32 ET Workstation ID: [id number] Transcribed By: Self Edit Transcribed Date: 09/05/2024 10:29 ET Tyler Masters MD IM NM PROCEDURES Final Result from Last 3 Months Insurance MEDICARE Care Teams Chemical Pathologist Relationship Specialty Start Date End Date Los Jacques MD [address] [place] [address] [address] [facility] [place] [address] PCP - General 10/24/21
--- OUTSIDE RECORDS SUMMARY | 2024-11-21 11:53 | XMS_ITS | Patient Health Record ---
Author Organization [facility] [place] Address [address] [facility] [place] [address] Care Team Providers Care Landcare Facilitator Name Role Phone Los Jacques Primary Care Provider Paul Ivey Unavailable [phone] Allergies Allergen (clinical drug ingredient) Drug/Non Drug [...] Active confirmed Problem Chronic ulcer of foot (137381190) Non-pressure chronic ulcer of other part of left foot with fat layer exposed (L97.522) Active confirmed Problem Bilateral atherosclerosis of arteries of lower limbs (disorder) (14965446166595013 ) Unspecified atherosclerosis of [place] arteries of extremities, bilateral legs (I70.203) Active confirmed Problem Acquired hammer toe of right foot (4550878108616260) Other hammer toe(s) (acquired), right foot (M20.41) Active confirmed Problem Acquired hammer toe of left foot (5451653440203649) Other hammer toe(s) (acquired), left foot (M20.42) Active confirmed Problem Neuropathy (935433561) Neuropathy (G62.9) Active confirmed Problem Acute osteomyelitis of ankle and/or foot (204665176) Osteomyelitis of foot, right, acute (M86.171) Active confirmed Problem Localized, primary osteoarthritis of the ankle and/or foot (662517573) Primary osteoarthritis of right foot (M19.071) Active confirmed Plan Of Treatment Pending Test Test Name Order Date X ray : Foot, left 3V 10/07/2021 X ray : Foot, right 3V 10/07/2021 X ray : Foot, right 3V 07/28/2022 [id number] SKIN/TISSUE 07/28/2022 [id number] SKIN/TISSUE 07/15/2022 [id number] SKIN/TISSUE 02/04/2022 [id number] SKIN/TISSUE 10/07/2021 [id number] SKIN LESIONS, 2 TO 4 10/08/19 [id number] SKIN LESIONS, 2 TO 4 05/14/19 05884-[id number] SKIN LESIONS, 2 TO 4 12/23/19 99310-KQXXUKXU OF HEMATOMA/FLUID 022 Insurance Providers Payer Name Payer Address Payer Phone Subscriber Number Group Number Insured Name Patient Relationship to Insured Coverage Start Date Coverage End Date Medicare National Govt Svcs Inc [address] [facility] [place] [address] [id number] Konrad Ferrera Self - patient is the insured Medical (General) History Medical History History ICD Code Atrial fibrillation Cor pulmonale (chroic) current use of anticoagulant therapy Gerd (Gastroesophageal reflux disease) Hemothorax History of Cardioversion hypercholesterolemia hypertension impaired glucose tolerance insomnia care home methotrexate user moderate COPD ( Chronic Obstructive [...]
== END 2024-11-21 11:11 | disposition home or self-care (01) ==
LOC: HO.RHES 09:54
PROVIDERS: PCP Internal Medicine; Visit Provider Student in an Organized Health Care Education/Training Program
DX: M06.00 Rheumatoid arthritis without rheumatoid factor, unspecified site (principal); M15.9 Polyosteoarthritis, unspecified; Z51.81 Encounter for therapeutic drug level monitoring; Z79.899 Other long term (current) drug therapy; Z79.620 Long term (current) use of immunosuppressive biologic
CPT/HCPCS: 99214; G2211

== ENCOUNTER → 2024-11-21 09:53 | Outpatient (BNVA) | payer MEDICARE, SELFPAY | PROVIDERS: PCP Internal Medicine; Visit Provider Student in an Organized Health Care Education/Training Program | DX: M06.00 Rheumatoid arthritis without rheumatoid factor, unspecified site (principal); M15.9 Polyosteoarthritis, unspecified; Z51.81 Encounter for therapeutic drug level monitoring; Z79.899 Other long term (current) drug therapy; Z79.620 Long term (current) use of immunosuppressive biologic | CPT/HCPCS: 99212 ==

== ENCOUNTER 2024-11-24 14:00 | Outpatient (REF) | payer MEDICARE, SELFPAY ==
[2024-11-24 14:30] LABS: MANUAL DIFF FLAG NO
--- OUTSIDE RECORDS SUMMARY | 2024-11-24 15:06 | XMS_ITS | Patient Health Record ---
Author Organization [facility] j[facility] [place] Address [address] [facility] [place] [address] Care Team Providers Care Resawyer Name Role Phone Los Jacques Primary Care Provider Paul Ivey Unavailable [phone] Allergies Allergen (clinical drug ingredient) Drug/Non Drug [...] Active confirmed Problem Chronic ulcer of foot (410775378) Non-pressure chronic ulcer of other part of left foot with fat layer exposed (L97.522) Active confirmed Problem Bilateral atherosclerosis of arteries of lower limbs (disorder) (18332673276571447 ) Unspecified atherosclerosis of [place] arteries of extremities, bilateral legs (I70.203) Active confirmed Problem Acquired hammer toe of right foot (0448441362712559) Other hammer toe(s) (acquired), right foot (M20.41) Active confirmed Problem Acquired hammer toe of left foot (6633849344473915) Other hammer toe(s) (acquired), left foot (M20.42) Active confirmed Problem Neuropathy (232362314) Neuropathy (G62.9) Active confirmed Problem Acute osteomyelitis of ankle and/or foot (733652563) Osteomyelitis of foot, right, acute (M86.171) Active confirmed Problem Localized, primary osteoarthritis of the ankle and/or foot (016304379) Primary osteoarthritis of right foot (M19.071) Active confirmed Plan Of Treatment Pending Test Test Name Order Date X ray : Foot, left 3V 10/07/2021 X ray : Foot, right 3V 10/07/2021 X ray : Foot, right 3V 07/28/2022 [id number] SKIN/TISSUE 07/28/2022 62899-[id number] SKIN/TISSUE 07/15/2022 11778-WVYVETS SKIN/TISSUE 02/04/2022 11622-[id number] SKIN/TISSUE 10/07/2021 49945-VADQ SKIN LESIONS, 2 TO 4 10/08/19 19995-TJTU SKIN LESIONS, 2 TO 4 05/14/19 82684-AMDU SKIN LESIONS, 2 TO 4 12/23/19 70587-NHCHESET OF HEMATOMA/FLUID 022 Insurance Providers Payer Name Payer Address Payer Phone Subscriber Number Group Number Insured Name Patient Relationship to Insured Coverage Start Date Coverage End Date Medicare National [employer] [address] [facility] [place] [address] [id number] Konrad Ferrera Self - patient is the insured Medical (General) History Medical History History ICD Code Atrial fibrillation Cor pulmonale (chroic) current use of anticoagulant therapy Gerd (Gastroesophageal reflux disease) Hemothorax History of Cardioversion hypercholesterolemia hypertension impaired glucose tolerance insomnia mcc methotrexate user moderate COPD ( Chronic Obstructive [...]
--- OUTSIDE RECORDS SUMMARY | 2024-11-24 15:07 | XMS_ITS | Patient Health Record ---
Author Organization [facility] Address [address] [place] [address] Care Team Providers Care Chief Cloth Finishing Range Operator Name Role Phone Los Jacques MD Primary Care Provider Zachary Zamorano Unavailable [phone] Allergies Allergen (clinical drug ingredient) Drug/Non Drug [...] Sodium 5 MG TAKE 1 TABLET BY [facility] DAILY PER PROTOCOL. TAKE ADDITIONAL TABLET [...] Problem Status W/U Status Risk Notes Problem 932357206 Encounter for screening for malignant neoplasm of colon (Z12.11) Active confirmed Problem History of adenomatous polyp of colon (886547657) History of adenomatous polyp of colon (Z86.010) Active confirmed Problem Screening for malignant neoplasm of rectum (258347853) Encounter for screening for malignant neoplasm of rectum (Z12.12) Active confirmed Problem History of polyp of colon (situation) (082372862) History of colon polyps (Z86.010) Active confirmed Problem 287987969 Gastroesophageal reflux disease, esophagitis presence not specified (K21.9) Active confirmed Problem 16832374 Pharyngoesophage al dysphagia (R13.14) Active confirmed Problem Diverticulosis of colon (411148031) Diverticulosis of colon (K57.30) Active confirmed Plan [...] MEDICARE OF [place] [address] [place] [address] [id number] SEJAL IRAHETA Self - patient is the insured MEDICAID OF [facility] [address] [place] [address] [id number] SEJAL IRAHETA Self - patient is the insured Medical (General) History Medical History History ICD Code HTN A.fib--seeing Hematoma in left side of rib s in relation to coughing--rib injury and a pleural effusion. Denies IL,DM,CVA,renal disease GERD Sleep apnea--uses CPAP Right leg [...] and several hyperplastic polyps removed COVID 01/2021-in [facility] for 17 days Surgical History Surgery Date(Month/Year) Tracheostomy at age 3 2 hammer toes /infection bottom of right foot Hernia repair-umbilical
[2024-11-24 15:09] LABS: Hematocrit 41.8 % (42.0-52.0); Hemoglobin 13.8 g/dl (14.0-18.0); Imm Gran Abs Auto 0.07 X10*3/uL (0.00-0.03); Imm Gran Pct Auto 0.7 % (0.0-0.4); Lymphocytes Absolute Auto 1.9 X10*3/uL (1.2-4.9); Mean Corpuscular HGB Conc 33.0 g/dl (31.0-36.0); Mean Corpuscular Hemoglobin 33.3 pg (27.0-33.0); Mean Corpuscular Volume 101.0 fL (80.0-98.0); NRBC Abs Auto 0.000 X10*3/uL (0.0-0.012); NRBC Pct Auto 0.0 /100WBC (0.0-0.2); Platelet Count 239 X10*3/uL (160-400); Red Blood Count 4.14 X10*6/uL (4.60-5.80); White Blood Count 9.6 X10*3/uL (4.8-10.8)
[2024-11-24 15:34] LABS: Alanine Aminotransferase 37 U/L (0-40); Albumin Level 4.6 g/dL (3.5-5.0); Alkaline Phosphatase 73 U/L (39-117); Anion Gap 13 (12-20); Aspartate Amino Transferase 32 U/L (5-37); Blood Urea Nitrogen 22 mg/dL (9-16); Calcium 8.9 mg/dL (8.4-10.2); Carbon Dioxide 31 mmol/L (22-29); Chloride 102 mmol/L (96-108); Cholesterol 176 mg/dL (<200); Estimated Glomerular Filt Rate > 60; HDL Cholesterol 29 mg/dL (>40); Potassium 4.0 mmol/L (3.3-5.1); Sodium 142 mmol/L (135-145); Total Protein 7.2 g/dL (6.5-8.0); Triglycerides 294 mg/dL (<150)
[2024-11-27 04:46] LABS: HBS Num1 0.00 mIU/mL (0-7.99); HBc Num1 0.10 S/CO (0.00-0.79); HBsAGNum1 0.32 S/CO (0.00-0.99); Hepatitis B Surface Antigen Negative (Negative); ~HepC Num1 0.12 S/CO (0.00-0.79); ~Hepatitis B Surface Antibody NONREACTIVE (Nonreactive); ~Hepatitis C Antibody Nonreactive (Nonreactive)
[2024-11-27 08:49] LABS: TS Negative Control Passed; TS Panel A 0; TS Panel B 0; TS Positive Control Passed; TSpotTB Negative (Negative)
== END 2024-11-24 14:01 | disposition home or self-care (01) ==
LOC: HO.LAB 14:00
PROVIDERS: PCP Internal Medicine; Visit Provider Student in an Organized Health Care Education/Training Program
DX: Z11.1 Encounter for screening for respiratory tuberculosis (principal); Z79.899 Other long term (current) drug therapy
CPT/HCPCS: 36415; 80053; 80061; 85025; 85652; 86140; 86481; 86704; 86706; 86803; 87340

== ENCOUNTER 2024-12-07 09:05 | Outpatient (AMB) | payer MEDICARE, SELFPAY ==
[2024-12-07 09:11] VITALS: BP 122/58; PULSE 62; O2SAT 97; BMI 35.9
--- NOTE | 2024-12-07 09:11 | A.OFFVIS_ITS ---
Vital Signs 12/07/24 09:11 Height 6 ft 2 in Weight 280 lb BMI 35.9 BP 122/58 L Blood Pressure Location Rt brachial Position Sitting Pulse 62 Pulse Source Pulse Oximeter Pulse Oximetry (%) 97 Oxygen Delivery Method Room Air Intake Visit Reasons: COPD Allergies Penicillins (PCN) Allergy (Unknown, Verified 12/06/24 11:41) UNKNOWN- RXN CHILD/? HIVES HPI HPI COPD: Details: 69-year-old gentleman, former 40+ pack-year smoker, quit 2017 with underlying history of AFib on anticoagulation, heart failure, long-term methotrexate use, COPD, prior admission for COVID-19 discharged on supplemental oxygen at 6 L with exertion and 2 L at night, no longer on oxygen, followed for moderate COPD, severe obstructive sleep apnea, pulmonary nodules, and dyspnea on exertion. He has been using Trelegy with good control of his pulmonary component. His lower extremity edema and orthopnea improved significantly on additional metolazone together with bumetanide 2 mg twice a day. However, when he ran out of metolazone his edema and orthopnea came back. Patient continues on CPAP with good control of his underlying symptoms. He denies recent exacerbations. Patient does have FDG positive right upper lobe nodule that he does not want biopsy for at this time. [facility] Medical History (Updated 11/21/24 @ 10:59 by Maren Covarrubias MD) Right leg DVT Personal history of nicotine dependence COPD (chronic obstructive pulmonary disease) Restless legs syndrome (RLS) Neuropathy Current use of anticoagulant therapy COVID-19 virus infection Post covid-19 condition, unspecified Persistent atrial fibrillation On methotrexate therapy Cor pulmonale (chronic) Insomnia Hemothorax Vitamin D deficiency Right renal stone Peripheral vascular disease GERD (gastroesophageal reflux disease) Impaired glucose tolerance Hypercholesterolemia Hypertension Severe obstructive sleep apnea 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 Mother Rheumatoid arteritis Sister Breast cancer Other Mental health disorder Substance use disorder Social History Household Members: Significant Other Housing: Apartment Do you presently have visiting nurse or other home services: No Alcohol intake: current Alcohol intake frequency: a few times a month Alcohol type: beer Patient Tobacco Use Status: Former Tobacco user Tobacco use type: Cigarette Years Smoked: 49 e-Cigarette/Vaping Use: Never Used Second Hand Smoke Exposure: Yes Substance Use Type: Marijuana service: No Current occupational status: retired Cognitive needs: No Hearing needs: No Vision needs: Yes Review of Systems Const Denies daytime sleepiness, Denies excessive sweating, Denies fatigue, Denies fever(s), Denies lethargy, Denies malaise, Denies night sweats, Denies snoring and Denies weight loss Eyes Denies blurry vision and Denies itchy eyes ENT Denies nasal congestion, Denies post nasal drip, Denies sinus pain, Denies sinus pressure and Denies other ( Thrush) Card Denies chest pain, Reports pedal edema, Denies dyspnea, Reports dyspnea on exertion, Reports orthopnea and Denies paroxysmal nocturnal dyspnea Resp Denies cough, Denies hemoptysis, Denies excessive phlegm production, Denies dyspnea, Reports dyspnea on exertion, Denies snoring and Denies wheezing GI Denies abdominal pain and Denies heartburn Musc Denies myalgias, Denies arthralgias and Denies joint swelling Skin/Breast Denies rash Neuro Denies memory loss and Denies seizure-like activity Psych Denies abnormal sleep pattern, Denies anxiety and Denies memory loss Endo Denies excessive sweating, Denies fatigue and Denies heat intolerance Augie/Lymph Denies easy bruising Aller/Immun Denies itchy eyes, Denies seasonal rhinorrhea and Denies wheezing Physical Exam Vital Signs: Last Vital Signs Pulse 62 12/07/24 09:11 BP 122/58 L 12/07/24 09:11 Pulse Ox 97 12/07/24 09:11 Oxygen Delivery Method Room Air 12/07/24 09:11 BMI result Body Mass Index 35.9 Const General: no acute distress and alert Nutritional Appearance: obese Orientation/consciousness: Other orientation findings ( oriented) HEENT Head: Yes atraumatic Eyes General: appearance normal, both eyes and all related structures Sclerae: sclerae normal EOM: EOMs intact bilaterally Neck Neck: Yes supple Lymphatic: no lymphadenopathy noted Resp Effort & Inspection: normal respiratory effort and no use of accessory muscles Auscultation: crackles (Mild bibasilar) Cardio Rate: regular rate Rhythm: regular rhythm Heart sounds: no gallops, no murmurs and no rubs Skin General skin exam: other ( warm) Extrem General: No clubbing, No cyanosis and Yes edema (2+ bilateral) Office Procedures Flu Questionnaire Does the patient have a severe egg allergy?: No Does the patient have severe life threatening allergies?: No Does the patient have a fever or illness today?: No Has the patient ever had Guillain-[place] Syndrome?: No Has the patient ever had any past reaction to a flu shot?: No Immunizations Fluarix [id number] (PF) 45 mcg (15 mcg x 3)/0.5 mL IM syringe Performing Provider: Tyler Masters MD Performing Location: [facility] Pulmonology Services Administered by: Evelyn Torres LPN on 12/07/24 09:33 Dose Route Admin Location Dispensed Lot Number Expiration Date NDC Chairman Of The Board 0.5 mL IM Left Deltoid 0.5 mL [id number] 08/28/25 87070-885-07 [employer] VIS Given Date VIS Provided VIS Publication Date 12/07/24 Single Vaccine 24 Eligibility Eligibility Date Funding Source Not [facility] Eligible 12/07/24 Private Assessment & Plan Assessment & Plan (1) Moderate COPD (chronic obstructive pulmonary disease): Code(s): J44.9 - Chronic obstructive pulmonary disease, unspecified Category: Medical Plan: Well controlled on current regimen of trilogy, duo nebs, and albuterol MDI. Continue current regimen. (2) Right upper lobe pulmonary nodule: Code(s): R91.1 - Solitary pulmonary nodule Category: Medical Plan: FDG avid on the last PET scan in August of 2024. Patient did not want to proceed with biopsy. Follow-up CT chest is pending for January of 2025. (3) Severe obstructive sleep apnea: Comment: CPAP use Code(s): G47.33 - Obstructive sleep apnea (adult) (pediatric) Category: Medical Plan: Well controlled on current CPAP therapy. Continue CPAP therapy. (4) Lower extremity edema: Code(s): R60.0 - Localized edema Category: Medical Plan: Now with worsening lower extremity edema and orthopnea off metolazone. Restart metolazone and continue Bumex 2 mg b.i.d. Orders: Orders Influenza [id number] Immunization Today J44.9 - Chronic obstructive pulmonary disease, unspecified Medications: New metolazone 2.5 mg PO .Wednesday 14 tabs 6RF Refilled ipratropium-albuterol 0.5 mg-3 mg(2.5 mg base)/3 mL 3 mL inhalation Q4-6H PRN 90 mL 3RF wheezing 30 days J44.9 - Chronic obstructive pulmonary disease, unspecified Coding Level of Care Code Tele New Pt Level 5 (79649) Diagnoses Moderate COPD (chronic obstructive pulmonary disease) J44.9 Right upper lobe pulmonary nodule R91.1 Severe obstructive sleep apnea G47.33 Lower extremity edema R60.0
== END 2024-12-07 09:41 | disposition home or self-care (01) ==
PROVIDERS: PCP Internal Medicine; Visit Provider Internal Medicine Pulmonary Disease
DX: J44.9 Chronic obstructive pulmonary disease, unspecified (principal); R91.1 Solitary pulmonary nodule; G47.33 Obstructive sleep apnea (adult) (pediatric); R60.0 Localized edema
CPT/HCPCS: 99214

== ENCOUNTER → 2024-12-07 09:05 | Outpatient (BNVA) | payer MEDICARE, SELFPAY | PROVIDERS: PCP Internal Medicine; Visit Provider Internal Medicine Pulmonary Disease | DX: J44.9 Chronic obstructive pulmonary disease, unspecified (principal); R91.1 Solitary pulmonary nodule; G47.33 Obstructive sleep apnea (adult) (pediatric); R60.0 Localized edema; Z87.891 Personal history of nicotine dependence; Z23 Encounter for immunization | CPT/HCPCS: 90471; 90656; 99212 ==

== ENCOUNTER 2025-01-22 09:59 | Outpatient (AMB) | payer MEDICARE, SELFPAY ==
--- OUTSIDE RECORDS SUMMARY | 2022-04-27 06:36 | XMS_ITS | Continuity of Care Document ---
Author Organization [facility] Address [address] [place] [address] Dr [address] [place] [phone] Phone Care Team Providers Care Compensation Agent Name Role Phone Mesha Bell MD, FACS, RVT Unavailable Unavailable Procedures Procedure Date 11-20 Min Medical Discussion On Phone - Telemedicine Advance Directives Directive Yes / No Effective Date File Name No Information Encounters Encounter Description Practice Location Reason(s) For Visit Diagnoses Date Provider Providers Copied on Encounter [facility], [address] [place] [address] [address]Ping [place], [id number], [place] tel:[phone] [facility] - [facility] No Information 3 Chun Perez. [address] [place] [address], [address], [place]. tel:[phone] Referring Provider: Sky Hector IV, MD , [address] [place] [address], [address]. tel:[phone] 11-20 Min Medical Discussion On Phone - [facility]medicine [facility], [address] [place] [address] [address] [place], [id number], [place] tel:[phone] [facility] (peripheral) 3 Chun Perez. [address] [place] [address], [address], [place]. tel:[phone] Referring Provider: Sky Augustin, [address] [place] [address] [place], [id number]. tel:[phone] Family History Family Member Type Diagnosis Age At Onset No Information Payers Payer name Insurance type Covered constitution party ID Authoriza tion(s) [place] [id number] [place] [id number] Social History Type Description Quantity Date Captured [...]
[2025-01-22 10:04] VITALS: BP 128/72; PULSE 66; BMI 34.2
--- NOTE | 2025-01-22 10:04 | MHC.OFFVIS ---
Vital Signs 01/22/25 10:04 Height 6 ft 2 in Weight 266 lb 12.149 oz BMI 34.2 BP 128/72 Blood Pressure Location Lt brachial Position Sitting Pulse 66 Pulse Source Monitor Intake Visit Reasons: 1 yr follow up Allergies Penicillins (PCN) Allergy (Unknown, Verified 01/17/25 08:58) UNKNOWN- RXN CHILD/? HIVES Medication List - Last Reconciled 01/22/25 by Perez Navas MD acetaminophen 1,000 mg PO TID PRN adalimumab-aaty 40 mg (0.4 mL) subcut Q2W albuterol sulfate 90 mcg/actuation 2 puffs PO Q4-6H PRN alprazolam 0.25 mg PO BEDTIME PRN ascorbic acid (vitamin C) 1,000 mg PO DAILY bumetanide 2 mg PO BID cholecalciferol (vitamin D3) 25 mcg PO DAILY compr.stocking,knee,long,large As directed 20-30 mm HG [CPAP As directed] diltiazem HCl CD 180 mg PO DAILY hydroxychloroquine 200 mg PO BID ipratropium-albuterol 0.5 mg-3 mg(2.5 mg base)/3 mL 3 mL inhalation Q4-6H PRN 30 days lisinopril 5 mg PO DAILY mecobalamin (vitamin B12) 1,000 mcg PO DAILY metolazone 2.5 mg PO .Wednesday omeprazole 20 mg PO DAILY pravastatin 20 mg PO DAILY Trelegy Ellipta 200-62.5-25 mcg (eyaenlksirt-nsjyfcvoc-dnwiyosn) 1 ea PO DAILY NS warfarin 5 mg See Protocol PO DAILY HPI Comments Details: Konrad returns for follow-up regarding atrial fibrillation. To recall, he underwent cardioversion in 2015. Was initially amiodarone which was later stopped. Then he reverted to atrial fibrillation at some point and has been maintained on rate control only. Overall, he is doing very well and he has got absolutely no cardiac symptoms. Chronic leg swelling but just about the same as before. COUNT INCLUDES THE [facility] Medical History (Updated 01/22/25 @ 10:47 by Perez Navas MD) Right leg DVT Personal history of nicotine dependence COPD (chronic obstructive pulmonary disease) Restless legs syndrome (RLS) Neuropathy Current use of anticoagulant therapy COVID-19 virus infection Post covid-19 condition, unspecified Persistent atrial fibrillation On methotrexate therapy Cor pulmonale (chronic) Insomnia Hemothorax Vitamin D deficiency Right renal stone Peripheral vascular disease GERD (gastroesophageal reflux disease) Impaired glucose tolerance Hypercholesterolemia Hypertension Severe obstructive sleep apnea 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 Mother Rheumatoid arteritis Sister Breast cancer Other Mental health disorder Substance use disorder Social History Household Members: Significant Other Housing: Apartment Do you presently have visiting nurse or other home services: No Alcohol intake: current Alcohol intake frequency: a few times a month Alcohol type: beer Patient Tobacco Use Status: Former Tobacco user Tobacco use type: Cigarette Years Smoked: 49 e-Cigarette/Vaping Use: Never Used Second Hand Smoke Exposure: Yes Substance Use Type: Marijuana service: No Current occupational status: retired Cognitive needs: No Hearing needs: No Vision needs: Yes Review of Systems Const Denies weakness ENT Denies dizziness Card Denies chest pain, Denies chest pain with activity, Denies syncope, Denies rapid heart rate, Denies pedal edema, Denies edema, Denies leg edema, Denies lightheadedness, Denies palpitations, Denies dyspnea, Denies dyspnea on exertion and Denies orthopnea Resp Denies cough, Denies dyspnea and Denies dyspnea on exertion GI Denies hematochezia and Denies change in stool character Musc Denies abnormal gait, Denies muscle cramps, Denies muscle weakness, Denies numbness, Denies radiating pain into limb and Denies tingling Neuro Denies abnormal gait, Denies dizziness, Denies syncope, Denies numbness, Denies tingling and Denies weakness Endo Denies palpitations Physical Exam Vital Signs: Last Vital Signs Pulse 66 01/22/25 10:04 BP 128/72 01/22/25 10:04 BMI result Body Mass Index 34.2 Const General: comfortable and no acute distress Orientation/consciousness: patient oriented x3 HEENT Other: Unremarkable Head: Yes normal to inspection Neck Neck: Yes normal visual inspection Chest Chest palpation & inspection: normal inspection of the chest Resp Auscultation: wheezes and diminished lung sounds Cardio Palpation: normal PMI Heart sounds: S1 normal heart sound present, S2 normal heart sound present, no gallops, no murmurs and no rubs GI Palpation (GI): Soft to palpation Back/Spine/Pelvis Other: unremarkable Skin General skin exam: no rashes or lesions noted Neuro General: patient oriented x3 Extrem Other: 1+ swelling General: Yes normal to inspection Psych Mental Status: mental status grossly normal Assessment & Plan Assessment & Plan (1) Persistent atrial fibrillation: Code(s): I48.19 - Other persistent atrial fibrillation Category: Medical Plan: Stable. On Diltiazem and Warfarin. (2) RBBB: Code(s): I45.10 - Unspecified right bundle-branch block Category: Medical Plan: Implications of progressive conduction system disease including potential symptoms. We will continue to follow. (3) Hypertension: Code(s): I10 - Essential (primary) hypertension Category: Medical Qualifiers: Hypertension type: essential hypertension Qualified Code(s): I10 - Essential (primary) hypertension Plan: Stable. Continue lisinopril. (4) Severe obstructive sleep apnea: Comment: CPAP use Code(s): G47.33 - Obstructive sleep apnea (adult) (pediatric) Category: Medical Plan: Sleep study from 2020 reported as very severe obstructive sleep apnea. Continue CPAP. (5) Cor pulmonale (chronic): Code(s): I27.81 - Cor pulmonale (chronic) Category: Medical Plan: This has been stable and there has not been any recent exacerbations. On Bumex. Plan Discussion Notes I reviewed the patient's latest EKG, noting stable, rate-controlled atrial fibrillation at 66 bpm and a persistent right bundle branch block, both unchanged from the previous year. I explained that the right bundle branch block is a chronic electrical conduction issue related to the patient's weight, sleep apnea, and lung problems, and is not a new cause for concern. We discussed the importance of continued efforts with weight loss to decrease stress on the heart and joints. I counseled the patient to watch for symptoms such as feeling dizzy or feeling faint, as this could signify a failure of the heart's electrical system. After confirming the patient has support at home, we mutually agreed to extend the follow-up interval to one year given the clinical stability. I instructed the patient to contact the office sooner if any issues arise. Patient was informed and verbally consented to the use of an ambient scribe for clinic note documentation during this visit. Patient Instructions: - Continue your efforts to lose weight and maintain healthy eating habits. This will help reduce stress on your heart and joints. - Continue to use your CPAP machine every day as you have been for your sleep apnea. - Your heart's electrical system was checked and shows that your atrial fibrillation is well-controlled and the right bundle branch block is stable. - You should call for medical help if you feel very dizzy, lightheaded, or like you are going to pass out, as these could be serious signs. - We will see you back in one year for your next follow-up appointment. - Please call us sooner if any new problems or symptoms come up. Coding Level of Care Code Est Pt Level 4 (80674) Complex visit Add On G2211 Diagnoses Persistent atrial fibrillation I48.19 RBBB I45.10 Essential hypertension I10 Hypertension type: essential hypertension Severe obstructive sleep apnea G47.33 Cor pulmonale (chronic) I27.81
--- OUTSIDE RECORDS SUMMARY | 2025-01-22 12:02 | XMS_ITS | Clinical Summary ---
Author Organization [address] [facility] Address [address] [place] [address] Phone Care Team Providers Care Cigar Packing Examiner Name Role Phone Los Jacques MD Primary Care Provider [phone] Allergies Active Allergy Reactions Criticality Noted Date [...] Encounters Date Type Department Care Team Description 11/30/2024 9:30 AM EDT Office Visit Orthopedic Surgery [place] [address] [phone] Ry Gallagher, DPM Hammer toe of left foot (Primary Dx); Acquired hammer toe of right foot; Corns and callosities; Type II diabetes mellitus with peripheral circulatory disorder (CMS/HCC V24, CMS/HCC V28); Pain in toe of left foot; Dermatophytosis of nail; Pain in toe of right foot; Metatarsalgia of both feet; Diabetic mononeuropathy simplex (CMS/HCC V24, CMS/HCC V28) from Last 3 [...] Care Team (Late st Contact Info) Description 03/05/2025 10:15 AM EST Office Visit Orthopedic Surgery [facility] [address] [phone] Ry Gallagher, DPM [address] [facility] [address] [place] [address] Health Maintenance Due Date Last Done Comments Colorectal Cancer Screening: Colonoscopy 1955 Diabetes: Annual GFR (Glomer ular Filtration Rate) 1955 Diabetes: Annual Foot Exam 1965 Diabetes: Annual Retina Eye Exam 1965 DTaP,Tdap,and Td Vaccines (1 - Tdap) 1974 Pneumococcal Vaccine: 50+ Ye ars (1 of 2 - PCV) 1974 RSV Immunization Adult Patie nts (1 - Risk 50-74 years 1-dose series) 2005 Zoster Vaccines (1 of 2) 2005 Abdominal Aortic Aneurysm (A AA) Screen 01/31/2022 Cholesterol Screening (Lipid Panel) 01/31/2022 Falls Risk Assessment 01/31/2022 Hepatitis C Screening 01/31/2022 Medicare Annual Wellness Visit 01/31/2022 Social Influencers of Health Screening 01/31/2022 Depression Screening 03/01/2024 COVID-19 Vaccine (1 - 2024-2 6 season) 2024 Influenza Vaccine (#1) 2024 10/30/2020 Diabetes: Annual Urine Albumin-Creatinine Ratio (uACR) 11/30/2024 Diabetes: Blood Sugar Contro l Test (HGBA1C) 11/30/2024 HIB Vaccines Aged Out No longer eligi [...] on patient's age to complete this topic Insurance MEDICARE Care Teams Cigar Packing Examiner Relationship Specialty Start Date End Date Los Jacques MD [address] [place] [address] [address] [facility] [place] [address] PCP - General 10/24/21
== END 2025-01-22 10:29 | disposition home or self-care (01) ==
LOC: HO.HCS 10:00
PROVIDERS: PCP Internal Medicine; Visit Provider Internal Medicine
DX: I48.19 Other persistent atrial fibrillation (principal); I45.10 Unspecified right bundle-branch block; I10 Essential (primary) hypertension; G47.33 Obstructive sleep apnea (adult) (pediatric); I27.81 Cor pulmonale (chronic)
CPT/HCPCS: 93010; 99214; G2211

== ENCOUNTER → 2025-01-22 09:59 | Outpatient (BNVA) | payer MEDICARE, SELFPAY | PROVIDERS: PCP Internal Medicine; Visit Provider Internal Medicine | DX: I10 Essential (primary) hypertension (principal); I48.19 Other persistent atrial fibrillation; G47.33 Obstructive sleep apnea (adult) (pediatric); Z99.89 Dependence on other enabling machines and devices; Z87.891 Personal history of nicotine dependence; E66.9 Obesity, unspecified; Z68.34 Body mass index [BMI] 34.0-34.9, adult; I27.81 Cor pulmonale (chronic); Z79.01 Long term (current) use of anticoagulants | CPT/HCPCS: 93005; 99212 ==

== ENCOUNTER 2025-02-02 06:52 | Outpatient (REF) | payer MEDICARE, SELFPAY ==
--- OUTSIDE RECORDS SUMMARY | 2022-04-27 06:36 | XMS_ITS | Continuity of Care Document ---
Author Organization [facility] Address [address] [place] [address] Dr [address] [place] [phone] Phone Care Team Providers Care Cellar Worker Name Role Phone Mesha Bell MD, FACS, RVT Unavailable Unavailable Procedures Procedure Date 11-20 Min Medical Discussion On Phone - Telemedicine Advance Directives Directive Yes / No Effective Date File Name No Information Encounters Encounter Description Practice Location Reason(s) For Visit Diagnoses Date Provider Providers Copied on Encounter [facility], [address] [place] [address] [address] [place], [id number], [place] tel:[phone] [facility] - [facility] No Information 3 Chun Perez. [address] [place] [address], [address], [place]. tel:[phone] Referring Provider: Sky Hector IV, MD , [address] [place] [address], [address]. tel:[phone] 11-20 Min Medical Discussion On Phone - Telemedicine [facility], [address] [place] [address] [address] [place], [id number], [place] tel:[phone] [facility] (peripheral) 3 Chun Perez. [address] [place] [address], [address], [place]. tel:[phone] Referring Provider: Sky Augustin, [address] [place] [address] [place], [id number]. tel:[phone] Family History Family Member Type Diagnosis Age At Onset No Information Payers Payer name Insurance type Covered green party ID Authoriza tion(s) [place] [id number] [place] [id number] Social History Type Description Quantity Date Captured Comments Sex Male Smoking Status No Information Chief Complaint And Reason For Visit No Information Reason For Referral Reason For Referral No Information History Of Present Illness Encounter Date Complaint History Of Prese nt Illness No Information Functional Status Date Functional Assessmen t No Information Instructions Date Instruction Additional Infor mation No Information Assessments Type Assessment Date No Information Patient Care Teams Name Effective Dates (start - stop) Status Members No Information
--- OUTSIDE RECORDS SUMMARY | 2025-02-02 06:55 | XMS_ITS | Patient Health Record ---
Author Organization [facility] Address [address] [place] [address] Care Team Providers Care Photo Tube Assembler Name Role Phone Los Jacques MD Primary Care Provider Zachary Zamorano [phone] Allergies Allergen (clinical drug ingredient) Drug/Non Drug Allergy documented on EMR Reaction Allergy Type Onset Date Status Penicillin Unknown Drug Allergy Active Reason For Referral No Information Medications Medication SIG (Take, Route, Frequency, Duration) Notes Start Date End Date Status Folic Acid 1 MG Tablet 3 tablets Orally Once a day Active Vitamin B12 Active Anoro Ellipta 62.5-25 MCG/INH Aerosol Powder Breath Activated INHALE 1 PUFF BY MOUTH ONCE DAILY Inhalation; Duration: 90 Active Warfarin Sodium 5 MG Tablet TAKE 1 TABLE T BY MOUTH DAILY PER PROTOCOL. TAKE ADDITIONAL TABLET DIRECTED BY THE [facility] Oral as directed Active Vitamin C Active Vitamin D3 Active dilTIAZem HCl ER Coated Beads 180 MG Capsule Extended Release 24 Hour TAKE 1 CAPSULE BY MOUTH ONCE DAILY Oral; Duration: 90 Active Pravastatin Sodium 20 MG Tablet Oral; Duration: 90 Active Humira Pen 40 MG/0.4ML Pen-injector Kit Subcutaneous; Duration: 30 Active Methotrexate Sodium 2.5 MG Tablet Oral; Duration: 28 Active Omeprazole 20 MG Capsule Delayed Release 1 capsule Orally Once a day Active Ventolin HFA 108 (90 Base) MCG/ACT Aerosol Solution 2 puffs as needed Inhalation every 4 hrs Active Lisinopril 5 MG Tablet 1 tablet Orally O nce a day Active Bumetanide 2 MG Tablet 1 tablet Orally t wice a day Active Immunizations Vaccine Route Administration Date Status Comme nts Influenza Unknown 10/30/2020 Administered Social History Social History Additional Details Category Social Info Options Details Miscellaneous: Marital status: Occupation: unemployed/retir ed Section Notes: Smoker 5 cigs per day--down from 2 ppd. Only occ. alcohol--heavier until 04/2015. Smoker 5 cigs per day-- stop ped in 2015. Only occ. alcohol now--heavier in the past--cut down in 11/2015. Smoker 5 cigs per day-- stop ped in 2015. Only occ. alcohol now--heavier in the past--cut down in 11/2015. Problems Problem Type SNOMED Code ICD Code Onset Dates Problem Status W/U Status Risk Notes Problem Screening for malignant neoplasm of colon (407561458) Encounter for screening for malignant neoplasm of colon (Z12.11) Active confirmed Problem History of adenomatous polyp of colon (344525762) History of adenomatous polyp of colon (Z86.010) Active confirmed Problem Screening for malignant neoplasm of rectum (831412551) Encounter for screening for malignant neoplasm of rectum (Z12.12) Active confirmed Problem History of polyp of colon (situation) (482505237) History of colon polyps (Z86.010) Active confirmed Problem Gastroesophageal reflux disease (189819521) Gastroesophageal reflux disease, esophagitis presence not specified (K21.9) Active confirmed Problem Dysphagia (18529016) Pharyngoesophageal dysphagia (R13.14) Active confirmed Problem Diverticulosis of colon (276385740) Diverticulosis of colon (K57.30) Active confirmed Plan Of Treatment Future Test Test Name Order Date UPPER GI ENDOSCOPY 07/30/2015 COLONOSCOPY 07/30/2015 UPPER GI ENDOSCOPY B[place]ON DILATION OF ESOPH 05/05/2016 COLONOSCOPY 05/05/2016 COLONOSCOPY 09/16/2021 Insurance Providers Payer Name Payer Address Payer Phone Subscriber Number Group Number Insured Name Patient Relationship to Insured Coverage Start Date Coverage End Date [place] OF [place] [address] [place] [address] [id number] SEJAL IRAHETA Self - patient is the insured MEDICAID OF [facility] [address] [place] [phone] [id number] SEJAL IRAHETA Self - patient is the insured Medical (General) History Medical History History ICD Code HTN A.fib--seeing Hematoma in left side of rib s in relation to coughing--rib injury and a pleural effusion. Denies ME,DM,CVA,renal disease GERD Sleep apnea--uses CPAP Right leg [...] and several hyperplastic polyps removed COVID 01/2021-in [facility] for 17 days Surgical History Surgery Date(Month/Year) Tracheostomy at age 3 2 hammer toes /infection bottom of right foot Hernia repair-umbilical
--- OUTSIDE RECORDS SUMMARY | 2025-02-02 06:55 | XMS_ITS | Clinical Summary ---
Author Organization [facility] Address [address] [place] [address] Phone Care Team Providers Care Casing Builder Name Role Phone Los Jacques MD Primary Care Provider [phone] Allergies Active Allergy Reactions Criticality Noted Date [...] 9:30 AM EDT Office Visit Orthopedic Surgery [place] [address] [phone] Ry Gallagher, DPM Hammer toe of left [...] 10:15 AM EST Office Visit Orthopedic Surgery [facility] [address] [phone] Ry Gallagher, DPM [address] [facility] [address] [place] [address] Health Maintenance Due Date Last [...] complete this topic Insurance MEDICARE Care Teams Casing Builder Relationship Specialty Start Date End Date Los Jacques MD [address] [place] [address] [address] [facility] [place] [address] PCP - General 10/24/21
[2025-02-02 07:10] LABS: MANUAL DIFF FLAG NO
[2025-02-02 07:18] LABS: Hematocrit 44.6 % (42.0-52.0); Hemoglobin 14.7 g/dl (14.0-18.0); Imm Gran Abs Auto 0.07 X10*3/uL (0.00-0.03); Imm Gran Pct Auto 0.8 % (0.0-0.4); Lymphocytes Absolute Auto 1.9 X10*3/uL (1.2-4.9); Mean Corpuscular HGB Conc 33.0 g/dl (31.0-36.0); Mean Corpuscular Hemoglobin 33.2 pg (27.0-33.0); Mean Corpuscular Volume 100.7 fL (80.0-98.0); NRBC Abs Auto 0.000 X10*3/uL (0.0-0.012); NRBC Pct Auto 0.0 /100WBC (0.0-0.2); Platelet Count 214 X10*3/uL (160-400); Red Blood Count 4.43 X10*6/uL (4.60-5.80); White Blood Count 8.3 X10*3/uL (4.8-10.8)
[2025-02-02 07:59] LABS: Erythrocyte Sedimentation Rate 9 MM/HR (0-15)
[2025-02-02 08:01] LABS: Alanine Aminotransferase 35 U/L (0-40); Albumin Level 4.6 g/dL (3.5-5.0); Alkaline Phosphatase 54 U/L (39-117); Anion Gap 15 (12-20); Aspartate Amino Transferase 40 U/L (5-37); Blood Urea Nitrogen 34 mg/dL (9-16); Calcium 9.7 mg/dL (8.4-10.2); Carbon Dioxide 34 mmol/L (22-29); Chloride 98 mmol/L (96-108); Cholesterol 185 mg/dL (<200); Estimated Glomerular Filt Rate > 60; HDL Cholesterol 33 mg/dL (>40); Potassium 3.7 mmol/L (3.3-5.1); Sodium 143 mmol/L (135-145); Total Protein 7.3 g/dL (6.5-8.0); Triglycerides 224 mg/dL (<150)
[2025-02-02 08:20] LABS: Free T4 (Free Thyroxine) 1.06 ng/dL (0.71-1.85); Thyroid Stimulating Hormone 1.65 uIU/mL (0.32-4.0)
[2025-02-02 11:43] LABS: Folate 10.3 ng/mL (> or = 4.0); Vitamin B12 596 pg/mL (200-900)
== END 2025-02-02 06:53 | disposition home or self-care (01) ==
LOC: HO.LAB 06:52
PROVIDERS: PCP Internal Medicine; Visit Provider Internal Medicine
DX: Z12.5 Encounter for screening for malignant neoplasm of prostate (principal); R73.02 Impaired glucose tolerance (oral); E78.00 Pure hypercholesterolemia, unspecified
CPT/HCPCS: 36415; 80053; 80061; 82607; 82746; 83036; 84153; 84439; 84443; 85025; 85652; 86140